=== PATIENT | male | born 1950 | race Caucasian/White ===

== ENCOUNTER → 2017-08-28 15:30 | Outpatient (CLI) | payer OTHER, SELFPAY ==
--- NOTE | 2017-08-28 15:35 | DI.RAD.S_ITS ---
PROCEDURE: XR ABDOMEN MIN 2V INDICATIONS: 67-year-old male with generalized abdominal pain. TECHNIQUE: 2 views of the abdomen were acquired. COMPARISON: [facility], , UPPER GI AIR CONTRAST WITH KUB, 06/29/2017, 10:31. FINDINGS: Surgical changes and devices: None. Bowel: No pneumoperitoneum. The bowel gas pattern is normal. Soft tissues: No masses; visualized solid organ contours appear normal in size. No suspicious abdominal calcifications. Bones: No suspicious bony abnormalities. IMPRESSION: No imaging explanation for abdominal pain. Dictated by: Oz Saini M.D. on 08/28/2017 at 15:52 Approved by: Oz Saini M.D. on 08/28/2017 at 15:54
== END ==
PROVIDERS: PCP Internal Medicine; Visit Provider Student in an Organized Health Care Education/Training Program
DX: R10.84 Generalized abdominal pain (principal)
CPT/HCPCS: 74019

== ENCOUNTER → 2017-09-07 07:18 | Outpatient (CLI) | payer OTHER, SELFPAY ==
--- NOTE | 2017-09-07 | DI.US.S_ITS ---
PROCEDURE: US ABDOMEN COMPLETE INDICATIONS: PAIN TECHNIQUE: Real-time scanning was performed of the abdominal and retroperitoneal organs, with image documentation. COMPARISON: [facility], , ABDOMEN LIMITED, 06/29/2017, 10:27. FINDINGS: Liver: Liver is normal in size and homogeneous in echotexture. Gallbladder: Gallbladder is clear with normal wall thickness. Biliary ducts: Intrahepatic bile ducts are non-dilated. Extrahepatic bile duct caliber measures 5.1 mm. Normal is 6-7 mm or less in diameter, or 10 mm or less post-cholecystectomy. Pancreas: Visualized portions of the pancreas are sonographically normal. Spleen: Spleen is at the upper limits of normal in size at 12.3 cm, appearing homogeneous in echotexture. Kidneys: Kidneys are normal in size and echotexture. Right kidney measures 12.2 cm long; left kidney measures 11.1 cm long. No hydronephrosis or nephrolithiasis. No solid masses. Aorta: Visualized aorta is normal in caliber at less than 3 cm. Iliacs: Proximal common iliac arteries are normal in caliber at less than 2.5 cm. IVC: Intrahepatic inferior vena cava is patent. Miscellaneous: No free abdominal fluid. IMPRESSION: Borderline splenomegaly otherwise normal abdomen ultrasound Dictated by: Nathan Hoover M.D. on 09/07/2017 at 8:37 Approved by: Nathan Hoover M.D. on 09/07/2017 at 8:40
== END ==
PROVIDERS: PCP Internal Medicine; Visit Provider Student in an Organized Health Care Education/Training Program
DX: R10.9 Unspecified abdominal pain (principal)
CPT/HCPCS: 76700

== ENCOUNTER → 2017-09-14 09:29 | Outpatient (CLI) | payer OTHER, SELFPAY ==
[2017-09-14 11:01] LABS: Blood Urea Nitrogen 16 mg/dL (9-20); Calcium 9.1 mg/dL (8.4-10.2); Carbon Dioxide 31 mmol/L (22-32); Chloride 101 mmol/L (98-107); Estimated Glomerular Filt Rate > 60.0 mL/min (>60); Glucose 96 mg/dL (80-110); HEMOLYSIS < 15 (0-50); Potassium 4.7 mmol/L (3.4-5.1); Sodium 139 mmol/L (137-145)
== END ==
PROVIDERS: PCP Internal Medicine; Visit Provider Student in an Organized Health Care Education/Training Program
DX: Z85.820 Personal history of malignant melanoma of skin (principal); R10.84 Generalized abdominal pain
CPT/HCPCS: 36415; 80048

== ENCOUNTER → 2017-12-26 12:01 | Outpatient (CLI) | payer OTHER, SELFPAY ==
[2017-12-26 13:19] LABS: Alanine Aminotransferase 26 IU/L (21-72); Albumin 4.1 g/dL (3.5-5.0); Albumin Globulin Ratio 1.5 (1.0-2.8); Alkaline Phosphatase 73 U/L (38-126); Aspartate Aminotransferase 19 IU/L (17-59); Bilirubin Total 0.8 mg/dL (0.2-1.3); Blood Urea Nitrogen 18 mg/dL (9-20); Calcium 8.7 mg/dL (8.4-10.2); Carbon Dioxide 25 mmol/L (22-32); Chloride 104 mmol/L (98-107); Estimated Glomerular Filt Rate > 60.0 mL/min (>60); Globulin 2.8 g/dL (1.7-4.1); Glucose 124 mg/dL (80-110); HEMOLYSIS < 15 (0-50); Lactate Dehydrogenase 398 U/L (313-618); Potassium 4.2 mmol/L (3.4-5.1); Sodium 142 mmol/L (137-145); Total Protein 6.9 g/dL (6.3-8.2); Uric Acid 6.2 mg/dL (3.5-8.5)
[2017-12-26 13:33] LABS: Add Manual Diff / Slide Review NO; Basophils Percent Auto 0.7 % (0-2); Eosinophils Percent Auto 3.3 % (2-4); Hematocrit 42.2 % (41-53); Hemoglobin 14.5 g/dL (13.5-17.5); Lymphocytes Percent Auto 13.5 % (25-40); Mean Corpuscular HGB Conc 34.3 % (30-36); Mean Corpuscular Hemoglobin 30.6 PG (26-34); Mean Corpuscular Volume 89.1 fL (80-100); Monocytes Percent Auto 6.4 % (3-14); Neutrophils Absolute Auto 6300 /uL (3000-5900); Neutrophils Percent Auto 76.1 % (50-75); Platelet Count 292 X10^3/uL (150-400); Red Blood Cell Count 4.73 X10^6/uL (4.5-5.9); Red Cell Distribution Width 14.9 % (11.6-14.8); White Blood Cell Count 8.3 X10^3/uL (4.5-11.0)
== END ==
PROVIDERS: PCP Internal Medicine; Visit Provider Internal Medicine Hematology & Oncology
DX: C83.10 Mantle cell lymphoma, unspecified site (principal)
CPT/HCPCS: 36415; 80053; 83615; 84550; 85025

== ENCOUNTER 2017-12-27 16:24 | Emergency (ER) | payer OTHER, SELFPAY ==
--- NOTE | 2017-12-27 16:30 | DI.RAD.S_ITS ---
PROCEDURE: XR CHEST 1V INDICATIONS: stroke like symptoms TECHNIQUE: One view of the chest was acquired. COMPARISON: [facility], , CHEST 2 VIEW, 08/30/2010, 12:12. FINDINGS: Surgical changes and devices: None. Lungs and pleura: No pleural effusions or pneumothorax. Scattered atelectasis without focal consolidation Mediastinum: Mediastinal contours appear normal. Heart size is normal. Bones and chest wall: No suspicious bony lesions. Overlying soft tissues appear unremarkable. IMPRESSION: No acute disease Dictated by: Kavon Jefferson M.D. on 12/27/2017 at 17:15 Approved by: Kavon Jefferson M.D. on 12/27/2017 at 17:16
--- NOTE | 2017-12-27 16:31 | DI.CT.S_ITS ---
PROCEDURE: CT HEAD/BRAIN WO CON INDICATIONS: stroke like symptoms TECHNIQUE: Noncontrast 4.5 mm thick angled axial sections acquired from the foramen magnum to the vertex, with coronal and sagittal reformats. For radiation dose reduction, the following was used: automated exposure control, adjustment of mA and/or kV according to patient size. COMPARISON: None. FINDINGS: Image quality: Excellent. CSF spaces: Basal cisterns are patent. No extra-axial fluid collections. Ventricles are normal in size and shape. Brain: No midline shift. No intracranial masses or hemorrhage. Meléndez-white matter interface is normal. Skull and face: Calvarium and visualized facial bones are intact, without suspicious lesions. Sinuses: Left maxillary sinus disease. IMPRESSION: No acute intracranial process. Findings were personally telephoned to Dr. Quigley in the emergency department 1644 hrs. 12/27/17 Dictated by: Kavon Jefferson M.D. on 12/27/2017 at 16:39 Approved by: Kavon Jefferson M.D. on 12/27/2017 at 16:45
[2017-12-27 16:48] LABS: Add Manual Diff / Slide Review NO; Basophils Percent Auto 0.7 % (0-2); Eosinophils Percent Auto 4.6 % (2-4); Hematocrit 38.5 % (41-53); Hemoglobin 13.3 g/dL (13.5-17.5); Lymphocytes Percent Auto 15.8 % (25-40); Mean Corpuscular HGB Conc 34.5 % (30-36); Mean Corpuscular Hemoglobin 28.4 PG (26-34); Mean Corpuscular Volume 82.3 fL (80-100); Monocytes Percent Auto 11.4 % (3-14); Neutrophils Absolute Auto 7100 /uL (3000-5900); Neutrophils Percent Auto 67.5 % (50-75); Platelet Count 271 X10^3/uL (150-400); Red Blood Cell Count 4.68 X10^6/uL (4.5-5.9); White Blood Cell Count 10.5 X10^3/uL (4.5-11.0)
--- NOTE | 2017-12-27 16:50 | ED_ITS ---
HPI - Neuro Symptoms/Deficit General Chief Complaint: Neuro Symptoms/Deficit Stated Complaint: CVA Time Seen by Provider: 12/27/17 16:30 Source: patient and family Mode of arrival: EMS Limitations: other (Difficulty with speech) History of Present Illness HPI Narrative: This is a 67-year-old male who had sudden onset of left-sided weakness, difficulty with speech that occurred at 4:05 p.m.. Patient was with his when she noticed changes. She states that it was very sudden. Patient states he does have a little bit of a headache. He is denying any vision changes. He is denying any chest pain or shortness of breath, no abdominal pain no nausea or vomiting no GI or urinary symptoms. Patient has a history of TIA remotely. He was on aspirin as well as blood thinners and cholesterol medication for that in the past but he had a large weight loss and they stopped those medications in conjunction with his physician. Patient was recently diagnosed with lymphoma he had bronchoscopy about 6 weeks ago according to his for biopsy. She is unsure if it was a needle biopsy or other form. He has not had any prior history of bleeds. He has not had any other recent surgeries. He has not had any recent head trauma. He does not take any aspirin or other anticoagulants currently. On Anticoagulants: No Related Data Home Medications Medication Instructions Recorded Confirmed ASPIRIN (Aspirin Low Dose) #0 11/09/09 CALCIUM CARBONATE/VITAMIN D3 #0 11/09/09 (Oyster Shell Calcium-Vit D Tab) furosemide 40 mg PO Q DAY #0 09/24/10 Previous Rx's Medication Instructions Recorded losartan 50 mg PO BID #180 02/06/11 CHLORTHALIDONE (#HYGROTON) 25 mg PO Q DAY #100 04/02/11 amlodipine 5 mg PO BID #100 05/22/11 Allergies Allergy/AdvReac Type Severity Reaction Status Date / Time No Known Drug Allergies Allergy Verified 12/27/17 16:31 Review of Systems Review of Systems All systems reviewed & are unremarkable except as noted in HPI and below Constitutional Denies frequent falls, Reports headache(s) and Reports weakness ENT Ears, Nose, Mouth, and Throat: Denies dizziness and Reports headache(s) Cardiovascular Denies syncope, Denies dyspnea and Denies dyspnea on exertion Respiratory Denies cough, Denies dyspnea, Denies dyspnea on exertion and Denies wheezing Gastrointestinal Gastrointestinal: Denies abdominal pain, Denies change in bowel habits, Denies diarrhea, Denies nausea and Denies vomiting Musculoskeletal Reports numbness Neurologic Reports abnormal speech, Denies dizziness, Denies syncope, Denies frequent falls , Reports headache(s), Reports focal weakness, Reports numbness, Reports sensory deficit and Reports weakness Allergic/Immunologic Denies wheezing PFSH Medical History Lymphoma (Acute) TIA (transient ischemic attack) (Acute) Surgical History S/P bronchoscopy with biopsy (Acute) Social History Smoking Status: Never smoker substance use type: does not use Exam Narrative Exam Narrative: GEN: well nourished, well appearing male, alert and oriented x 3 , patient appears to be in moderate distress. HEENT: Atraumatic, pupils are equal round reactive to light, patient appears to have gaze palsy to right, nares are clear, TMs are clear with no fluid, there is no conjunctival pallor. Throat is clear without any exudates, erythema, tonsillar enlargement or uvular deviation, right facial droop, dysarthria although able to understand most words. HEART: Regular rate and rhythm without murmur, clicks, rubs. pulses are equal in upper and lower extremities LUNGS:Lungs clear to auscultation, no wheezes, rales, crackles, chest moves symmetrically ABD:bowel sounds normal, soft, non-tender, no guarding, rebound, rigidity, no masses noted, no hepatosplenomegaly MSCL: Non-tender, no muscle atrophy, muscles strength right 5/5 upper and lower extremity, left has not movement against gravity on upper and attempt but cannot get leg off bed on left NEURO:CN 2-12 intact, patient does not have sensation on left upper or lower extremities, finger nose finger test normal right, cannot complete on left. moderate aphasia, patient has neglect on left. Initial Vital Signs Initial Vital Signs: Vital Signs Pulse Rate 55 L 12/27/17 17:02 Respiratory Rate 17 12/27/17 17:02 Blood Pressure 132/60 12/27/17 17:02 Pulse Oximetry 98 12/27/17 17:02 Scores NIH Stroke Scale Level of Conciousness: Alert, keenly responsive Ask month/age: Answers both questions correctly. Open/close eyes, close hand: Performs both tasks correctly Best gaze horizontal: Forced deviation or total gaze paresis not overcome Visual milner: Partial hemianopia Facial palsy: Partial paralysis, total or near total paralysis of lower face Left arm drift: No effort against gravity Right arm drift: No drift for full 10 sec Left leg drift: Some effort against gravity, cannot maintain, drifts down to bed Right leg drift: No drift for full 10 sec Limb ataxia: Present in two limbs Sensory on face/arms/legs: Severe to total sensory loss, not aware of touch, coma, quadriplegic Best language: Mild to moderate, slurs some words Dysarthria: Mild to mod,some slurring Extinction or inattention: Visual, tactile, auditory, spacial or personal inattention to stimuli Total NIH Stroke scale score: 17 Course Orders Ordered: ED Orders 12/27/17 16:30 XR chest 1V Stat 12/27/17 16:31 CT head/brain wo con Stat 12/27/17 16:36 EKG-12 Lead Stat 12/27/17 16:40 Basic Metabolic Panel Stat Complete Blood Count AUTO DIFF Stat Partial Thromboplastin Time Stat Prothrombin Time INR Stat Troponin I Stat 12/27/17 16:59 CT angio head and neck Stat 12/27/17 18:25 Urine Drug Screen, Rapid Stat Sodium Chloride (Normal Saline 0.9%) 1,000 mls @ 150 mls/hr IV CONT MADELEINE Last Admin: 12/27/17 17:07 Dose: 150 mls/hr Sodium Chloride (Normal Saline 0.9%) 1,000 mls @ 150 mls/hr IV CONT MADELEINE Discontinued Medications Alteplase, Recombinant (Activase) 9 mg IV NOW ONE Stop: 12/27/17 17:02 Last Admin: 12/27/17 17:12 Dose: 9 mg Alteplase, Recombinant (Activase) 81 mg IV NOW ONE Stop: 12/27/17 17:02 Last Admin: 12/27/17 17:14 Dose: 81 mg Labetalol HCl (Trandate) 10 mg IV NOW ONE Stop: 12/27/17 18:30 Last Admin: 12/27/17 18:38 Dose: 10 mg Vital Signs - 8 hr 12/27/17 17:02 12/27/17 18:20 12/27/17 18:38 Pulse Rate 55 L 107 H 78 Respiratory Rate 17 28 H Blood Pressure 184/109 H Blood Pressure [Left Arm] 132/60 180/127 H Pulse Oximetry 98 99 MDM - Neuro Symptoms/Deficit Lab Data Attestation: I reviewed the patient's lab results. Result diagrams: 12/27/17 16:40 12/27/17 16:40 Lab Results 12/27/17 12/27/17 12/27/17 Range/Units 16:40 16:40 16:40 WBC 10.5 (4.5-11.0) X10^3/uL RBC 4.68 (4.5-5.9) X10^6/uL Hgb 13.3 L (13.5-17.5) g/dL Hct 38.5 L (41-53) % MCV 82.3 D (80-100) fL MCH 28.4 (26-34) PG MCHC 34.5 (30-36) % RDW 15.0 H (11.6-14.8) % Plt Count 271 (150-400) X10^3/uL Neut % (Auto) 67.5 (50-75) % Lymph % (Auto) 15.8 L (25-40) % Evangeline % (Auto) 11.4 (3-14) % Eos % (Auto) 4.6 H (2-4) % Baso % (Auto) 0.7 (0-2) % Neut # (Auto) 7100 H (0928-8974) /uL PT 12.1 (10.1-12.7) SECONDS INR 1.1 (0.9-1.3) APTT 31 (26.4-36.2) SECONDS Sodium (137-145) mmol/L Potassium (3.4-5.1) mmol/L Chloride (98-107) mmol/L Carbon Dioxide (22-32) mmol/L BUN (9-20) mg/dL Creatinine (0.66-1.25) mg/dL Estimated GFR (>60) mL/min BUN/Creatinine Ratio (6-22) Glucose (80-110) mg/dL Calcium (8.4-10.2) mg/dL Troponin I 0.033 (0.01-0.034) ng/mL Urine Opiates Screen (Negative) Ur Oxycodone Screen (Negative) Urine Methadone Screen (Negative) Ur Barbiturates Screen (Negative) U Tricyclic Antidepress (Negative) Ur Phencyclidine Scrn (Negative) Ur Amphetamines Screen (Negative) U Methamphetamines Scrn (Negative) Ur MDMA Scrn (Ecstasy) (Negative) U Benzodiazepines Scrn (Negative) Urine Cocaine Screen (Negative) U Marijuana (THC) Screen (Negative) 12/27/17 12/27/17 Range/Units 16:40 18:25 WBC (4.5-11.0) X10^3/uL RBC (4.5-5.9) X10^6/uL Hgb (13.5-17.5) g/dL Hct (41-53) % MCV (80-100) fL MCH (26-34) PG MCHC (30-36) % RDW (11.6-14.8) % Plt Count (150-400) X10^3/uL Neut % (Auto) (50-75) % Lymph % (Auto) (25-40) % Evangeline % (Auto) (3-14) % Eos % (Auto) (2-4) % Baso % (Auto) (0-2) % Neut # (Auto) (1821-0237) /uL PT (10.1-12.7) SECONDS INR (0.9-1.3) APTT (26.4-36.2) SECONDS Sodium 141 (137-145) mmol/L Potassium 4.5 (3.4-5.1) mmol/L Chloride 104 (98-107) mmol/L Carbon Dioxide 26 (22-32) mmol/L BUN 20 (9-20) mg/dL Creatinine 1.00 (0.66-1.25) mg/dL Estimated GFR > 60.0 (>60) mL/min BUN/Creatinine Ratio 20.0 (6-22) Glucose 95 (80-110) mg/dL Calcium 8.5 (8.4-10.2) mg/dL Troponin I (0.01-0.034) ng/mL Urine Opiates Screen Negative (Negative) Ur Oxycodone Screen Negative (Negative) Urine Methadone Screen Negative (Negative) Ur Barbiturates Screen Negative (Negative) U Tricyclic Antidepress Negative (Negative) Ur Phencyclidine Scrn Negative (Negative) Ur Amphetamines Screen Negative (Negative) U Methamphetamines Scrn Negative (Negative) Ur MDMA Scrn (Ecstasy) Negative (Negative) U Benzodiazepines Scrn Negative (Negative) Urine Cocaine Screen Negative (Negative) U Marijuana (THC) Screen Negative (Negative) Urine Dip Bedside Urine Glucose Negative Bedside Urine Bilirubin - Negative Bedside Urine Ketone - Negative Urine Specific [place] 1.015 Bedside Urine Occult Blood +/- Bedside Urine pH 6.0 Bedside Urine Protein - Negative Bedside Urine Urobilinogen - Negative Bedside Urine Nitrite - Negative Bedside Urine Leukocytes - Negative Esterase Imaging Data CT scan - head: Radiologist's impression: [address] [address] [address] Scan Report Signed Patient: Pierce Voss ANALI#: [id number] : 8Acct:[id number] Age/Sex: 67 / MDate of Service: 12/27/17 Loc: ED Accession Number: [id number] Procedure: CT head/brain wo con Ordering Provider: Sushma Quigley D.O. PROCEDURE: CT HEAD/BRAIN WO CON INDICATIONS: stroke like symptoms TECHNIQUE: Noncontrast 4.5 mm thick angled axial sections acquired from the foramen magnum to the vertex, with coronal and sagittal reformats. For radiation dose reduction, the following was used: automated exposure control, adjustment of mA and/or kV according to patient size. COMPARISON: None. FINDINGS: Image quality: Excellent. CSF spaces: Basal cisterns are patent. No extra-axial fluid collections. Ventricles are normal in size and shape. Brain: No midline shift. No intracranial masses or hemorrhage. Meléndez-white matter interface is normal. Skull and face: Calvarium and visualized facial bones are intact, without suspicious lesions. Sinuses: Left maxillary sinus disease. IMPRESSION: No acute intracranial process. Findings were personally telephoned to Dr. Quigley in the emergency department 1644 hrs. 12/27/17 Dictated by: Kavon Jefferson M.D. on 12/27/2017 at 16:39 Approved by: Kavon Jefferson M.D. on 12/27/2017 at 16:45 Chest x-ray: Radiologist's impression: [address] [address] XRay Report Signed Patient: Pierce Voss ANALI#: [id number] : 8Acct:[id number] Age/Sex: 67 / MDate of Service: 12/27/17 Loc: ED Accession Number: [id number] Procedure: XR chest 1V Ordering Provider: Mank,Sushma C D.O. PROCEDURE: XR CHEST 1V INDICATIONS: stroke like symptoms TECHNIQUE: One view of the chest was acquired. COMPARISON: [facility], , CHEST 2 VIEW, 08/30/2010, 12:12. FINDINGS: Surgical changes and devices: None. Lungs and pleura: No pleural effusions or pneumothorax. Scattered atelectasis without focal consolidation Mediastinum: Mediastinal contours appear normal. Heart size is normal. Bones and chest wall: No suspicious bony lesions. Overlying soft tissues appear unremarkable. IMPRESSION: No acute disease Dictated by: Kavon Jefferson M.D. on 12/27/2017 at 17:15 Approved by: Kavon Jefferson M.D. on 12/27/2017 at 17:16 ECG Data Attestation: I personally reviewed and interpreted this ECG as follows: Interpretation: Sinus rhythm 1st degree AV block. Rate is 61 P are 223, QRS of 106 and QTC of 434. Patient has left anterior fascicular block. J-point elevation in V3 V4. T-wave inversion in 1 aVL. MDM Narrative Medical decision making narrative: This is a 67-year-old male who comes in within 45 min of his onset of symptoms of stroke. Patient has a elevated NIH, Um discussed with Neurosurgery through stroke through tele Stroke. Patient has risk factor for recent bronch but otherwise meets criteria for tPA. It was decided in conjunction to give patient tPA. Risks were described patient as well as the of risk versus benefit. They are aware of these and consent to tPA. Patient did seem to have some improvement shortly after the tPA was administered. He was taken to CT for CTA head and neck. Patient had elevated blood pressure about 185/100, labetalol 10 mg was given and continue to monitor blood pressure. This was also discussed with Neurology. Images were reviewed by neurology who see occlusion of the MCA and a code IR was called with plan for transport to [facility]. Dr. Lemos is the accepting physician. Patient's lab work was reviewed hemoglobin is 13. Patient has some and were informed of plan and potential for clot retrieval. They are comfortable with this plan at the time. Patient began having having recurrence of symptoms. I he is not having sensation to light touch on his left upper lower extremity. He is able to lift his left arm somewhat but with some difficulty. Patient does have increased weakness from before. He is not able to lift his left leg. He seems to also be having some increased slurring of his speech back to what he was like originally when he came to the department. Patient has also had some sort of jumping Um or tremors in the leg intermittently as well. His blood pressure was noted to be elevated again and he was given a 2nd dose of labetalol 10 mg plan to repeat a 2nd dose after 10 min of pressure has not improved significantly. Air lift is present Um and planning to her transportation at this time. I did recontact [facility] to update them on the status changes the patient, I spoke with the ER coordinator nurse who will notify neurology. Discharge Plan Departure Patient Disposition: [facility] Clinical Impression: Acute CVA (cerebrovascular accident) Prescriptions: No Action ASPIRIN (Aspirin Low Dose) Qty: 0 RF: 0 CALCIUM CARBONATE/VITAMIN D3 (Oyster Shell Calcium-Vit D Tab) Qty: 0 RF: 0 furosemide 40 MG tablet 40 mg PO Q DAY Qty: 0 RF: 0 losartan 50 MG tablet 50 mg PO BID Qty: 180 RF: 0 CHLORTHALIDONE (#HYGROTON) 25 mg PO Q DAY Qty: 100 RF: 0 amlodipine 10 MG tablet 5 mg PO BID Qty: 100 RF: 0
[2017-12-27 16:54] LABS: INR 1.1 (0.9-1.3); Prothrombin Time 12.1 SECONDS (10.1-12.7)
[2017-12-27 16:57] LABS: PTT Partial Thromboplastin Tim 31 SECONDS (26.4-36.2)
[2017-12-27 16:58] LABS: Blood Urea Nitrogen 20 mg/dL (9-20); Calcium 8.5 mg/dL (8.4-10.2); Carbon Dioxide 26 mmol/L (22-32); Chloride 104 mmol/L (98-107); Estimated Glomerular Filt Rate > 60.0 mL/min (>60); Glucose 95 mg/dL (80-110); HEMOLYSIS < 15 (0-50); Potassium 4.5 mmol/L (3.4-5.1); Sodium 141 mmol/L (137-145)
--- NOTE | 2017-12-27 16:59 | DI.CT.S_ITS ---
PROCEDURE: CT ANGIO HEAD AND NECK INDICATIONS: left sided deficits, aphasia, dysarthria, neglect TECHNIQUE: Pre-contrast 4.5 mm thick sections acquired from the foramen magnum to the vertex. After the administration of intravenous contrast, 1 mm thick sections acquired from the aortic arch through the Julian of [place]. Post-contrast 4.5 mm thick sections then re-acquired from the foramen magnum to the vertex. 3-dimensional fnhqkwu-vdowwnodk-djzhzimlrm (MIP) and/or volume rendering reformats were acquired of the central intracranial vasculature and neck separately. COMPARISON: None. FINDINGS: Image quality: Suboptimal due to motion artifact.. BRAIN: CSF spaces: Ventricles are normal in size and shape. Basal cisterns are patent. No extra-axial fluid collections. Brain: No midline shift. No intracranial bleeds or masses. Meléndez-white matter interface appears intact. Skull and face: Calvarium and facial bones appear intact, without suspicious lesions. Orbits appear normal. Sinuses: Sinuses and mastoids are clear. HEAD CT ANGIOGRAPHY: Anterior circulation: There is presumed high-grade stenosis of the right internal carotid artery at about the level of C2. This is not well-visualized due to streak artifact from dental hardware. There is asymmetric decreased contrast opacification of the distal right ICA to the stillaguamish of [place]. The flow within the paired anterior cerebral arteries is normal and symmetric. Decreased flow within the right middle cerebral artery and distal right MCA branches although there is minimal contrast opacification. The anterior communicating artery is seen. No aneurysms are seen. Posterior circulation: Visualized portions of the vertebral arteries demonstrate normal caliber, and join to form a normal appearing basilar artery. Flow within the posterior cerebral arteries is normal and symmetric. No aneurysms are seen. NECK CT ANGIOGRAPHY: Carotid system: The great vessels demonstrate a conventional anatomy as they arise from the aortic arch. The origins of the common carotid arteries appear patent. The common carotid arteries demonstrate normal caliber and courses. The bifurcation regions are both widely patent. There is a distal right cervical ICA stenosis with decreased opacification of the intracranial right ICA. The left ICA appears grossly patent. Posterior circulation: The origins of the vertebral arteries both appear widely patent. The more superior extracranial portions of both vertebral arteries also demonstrate normal courses and calibers. They join to form a normal appearing basilar artery. Soft tissues: Visualized neck soft tissues demonstrate no suspicious abnormalities. Bones: No suspicious bony lesions. Visualized cervical spine appears normally aligned. IMPRESSION: Marked decreased contrast opacification of the distal cervical right ICA to the level of stillaguamish of [place] (as well as the right MCA, and distal right MCA branches) presumably due to a high-grade right-sided distal cervical ICA stenosis at the level of about C2 however this is not well-seen due to extensive streak artifact from dental hardware. Findings were personally telephoned and discussed with Dr. Quigley in the emergency department 1907 hrs. on 12/27/17. Any quantitative measurements of stenosis were performed using NASCET criteria. Dictated by: Kavon Jefferson M.D. on 12/27/2017 at 18:55 Approved by: Kavon Jefferson M.D. on 12/27/2017 at 19:09
[2017-12-27 17:02] VITALS: BP 132/60; PULSE 55; RESP 17; O2SAT 98
[2017-12-27] MEDS: SODIUM CHLORIDE 0.9% 1,000 ML 150 ML IV (17:07)
[2017-12-27] MEDS: ALTEPLASE 100 MG VIAL 9 MG IV (17:12)
[2017-12-27] MEDS: ALTEPLASE 100 MG VIAL 81 MG IV (17:14)
[2017-12-27 17:18] LABS: Troponin I 0.033 ng/mL (0.01-0.034)
[2017-12-27 18:20] VITALS: BP 180/127; PULSE 107; RESP 28; O2SAT 99
[2017-12-27 18:38] VITALS: BP 184/109; PULSE 78
[2017-12-27] MEDS: LABETALOL 20 MG/4 ML SYRINGE 10 MG IV ×2 (18:38→19:15)
[2017-12-27 19:05] LABS: Urine Tetrahydrocannabinol Negative (Negative)
[2017-12-27 19:06] LABS: Urine Amphetamines Negative (Negative); Urine Barbiturates Negative (Negative); Urine Benzodiazepines Negative (Negative); Urine Cocaine Negative (Negative); Urine MDMA Negative (Negative); Urine Methadone Negative (Negative); Urine Methamphetamines Negative (Negative); Urine Morphine/Opi cutoff 2000 Negative (Negative); Urine Oxycodone Negative (Negative); Urine Phencyclidine Negative (Negative); Urine Tricyclic Antidepressant Negative (Negative)
[2017-12-27 19:15] VITALS: BP 165/133; PULSE 76
--- NOTE | 2017-12-27 19:58 | PC.NURSE ---
See paper documentation for NIH and VS
[2017-12-27 20:00] VITALS: BP 198/117; PULSE 76; RESP 21; O2SAT 98
--- NOTE | 2018-01-13 10:06 | PC.NURSE ---
NS 1L started at time apr and went with pt to [facility] to [facility] at 1956
== END 2017-12-27 19:55 | disposition short-term general hospital (02) ==
PROVIDERS: Emergency Provider Emergency Medicine; PCP Internal Medicine
DX: I63.9 Cerebral infarction, unspecified (principal)
CPT/HCPCS: 36415; 36591; 70450; 70496; 70498; 71045; 80048; 80305; 81003; 84484; 85025; 85610; 85730; 93005; 93010; 96361; 96374; 96375; 96376; 99285; 99291; 99292; J2997; Q9967

== ENCOUNTER 2018-04-22 13:45 | Outpatient (RCR) | payer OTHER, SELFPAY ==
--- NOTE | 2018-02-04 12:45 | PT.OIE ---
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) Other reduced mobility (02/04/18) Past Medical History (Last Updated 12/27/17 @ 18:31 by Sushma Quigley DO) Lymphoma (Acute) TIA (transient ischemic attack) (Acute) Past Surgical History (Last Updated 12/27/17 @ 18:31 by Sushma Quigley DO) S/P bronchoscopy with biopsy (Acute) Provider Visit Care Team Role Provider Type Layton Francis MD Attending Provider Physician Primary Care Provider Specialty: Internal Medicine Address: [address] [place] [address], [facility] Email: Physical Therapy Initial Evaluation PT-OP-A Visit Information Start: 02/06/18 07:16 Freq: Status: Active Protocol: Document 02/04/18 12:45 RCC (Rec: 02/06/18 08:08 RCC [email or web address]) Out-Patient Physical Therapy Visit Information Visit Information Visit Type Initial Evaluation Visit Start Time 12:00 Visit Stop Time 12:45 Total Visit Minutes 45 Visit Number 1 Number of UPHOLSTERER APPRENTICE Visits 0 Evaluation Information Evaluation Date 02/04/18 Precautions Precautions L toe drag occasionally with gait, fall risk PT-OP-B Current Condition Start: 02/06/18 07:16 Freq: Status: Active Protocol: Document 02/04/18 12:45 RCC (Rec: 02/06/18 08:08 RCC [email or web address]) Current Condition History of Current Condition Onset Date 12/27/17 Current Complaints impaired gait, weakness LUE and LE, poor balance History of Current Condition Pt is a 68 y/o male presenting to outpatient physical therapy with a c/o L sided UE and LE weakness, impaired gait and balance, and general difficulty with mobility and loss of function s/p CVA (R MCA). Pt initially brought to on 12/27/17 with slurred speech, L UE/LE weakness. He was administered tPA at , continued to have recurring symptoms of HTN, slurred speech, and L sided weakness. He was airlifted to [facility] , but transported from helicopter to [facility] for further evaluation and treatment. He spent a couple of weeks of rehab at [facility], and returned home with (see PT notes for rehab in paper chart). Pt is receiving hand therapy at [facility] in [place], he is unsure if he will get UE strengthening and treatment there beyond his hand. His prior level of function is indep. gait without a device. 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 He is not yet driving. He is using a FWW for gait, he does not yet feel safe with the quad cane with ambulation. CVA affected both L UE and LE. He has baseline low back pain with R sided sciatic symptoms ( treated @ this clinic years prior to this as well). Prior Treatments and Tests tPA @ then airlift and transport to [facility] with rehab. Future Testing and Treatments Planned OT for UE strengthening, coordination, function- recommend referral for this to be performed @ current IR ( receiving hand therapy only) or @ for OT as well as PT. Treatment Goals Patient/Caregiver Goals improve gait, balance, strength, functional independence. Prior Functional Status Baseline Function- ADL's Independent Baseline Function- Mobility Independent Baseline Function- Gait short community ambulation without device Baseline Function- Work/School working @ [employer] and fixing/up-keep on own home Current Functional Impairments (Reported) Functional Limitations- ADL's assistance with dressing, bathing Functional Limitations- Mobility/Gait modified indep. gait indoors and level outdoors with FWW Functional Limitations- Work/School unable to work Personal Factors Other Personal Factors That May Effect currently with lymphoma ( Therapy/Recovery diagnosed prior to CVA but no treatment due to CVA) as well as a bad heart valve) which lymphoma and CVA also has hindered treatment. Baseline low back pain with R sided sciatic. Obesity, although lost weight recently. PT-OP-C Subjective Start: 02/06/18 07:16 Freq: Status: Active Protocol: Document 02/04/18 12:45 RCC (Rec: 02/06/18 08:08 RCC [email or web address]) OP-PT Pain Assessment Location low back/buttock Intensity 4 Scale Used Numeric (1 - 10) PT-OP-D Balance Start: 02/06/18 07:16 Freq: Status: Active Protocol: Document 02/04/18 12:45 RCC (Rec: 02/06/18 08:08 RCC [email or web address]) Balance Tests Single Limb Standing Single Limb- Right 5 sec Single Limb- Left unable Tandem Tandem Standing R posterior 15 sec, L posterior 3 sec PT-OP-E Functional Tests Start: 02/06/18 07:16 Freq: Status: Active Protocol: Document 02/04/18 12:45 RCC (Rec: 02/06/18 08:08 RCC [email or web address]) Functional Tests Timed Up and Go (TUG) Score 24.46 Comments FWW TUG Impairment Rating 100% Impaired (Score 20) PT-OP-G Mobility & Gait Start: 02/06/18 07:16 Freq: Status: Active Protocol: Document 02/04/18 12:45 RCC (Rec: 02/06/18 08:08 RCC [email or web address]) OP Mobility Evaluation Bed Mobility Supine to and from Sit modified indep log roll Transfers Sit to Stand SBA Bed to Chair Transfers SBA Car Transfers SBA Floor Transfers not assessed OP Gait Assessment Gait Gait Assistance Required: Standby Assistance Assistive Devices Assistive Device Gait Belt Front Wheeled Walker Gait Deviations General Gait Pattern Decreased Stride Length Decreased Feet Clearance Flexed Trunk Factors Limiting Gait Function Factors Limiting Gait Function Decreased Activity Tolerance Decreased Strength Incoordination Poor Balance PT-OP-H Neuro Start: 02/06/18 07:16 Freq: Status: Active Protocol: Document 02/04/18 12:45 RCC (Rec: 02/06/18 08:[address] [facility] [email or web address]) Sensation Evaluation Comments Summary Comments pt reports sensation intact UE and LE Coordination Evaluation Upper Extremity Tests Right Finger to Nose Test Normal Performance Pronation/Supination Test Normal Performance Left Finger to Nose Test Moderate Impairment Pronation/Supination Test Severe Impairment Lower Extremity Tests Right Alternate Heel to Knee; Heel to Toe Test Normal Performance Foot Tapping Test Normal Performance Left Alternate Heel to Knee; Heel to Toe Test Severe Impairment Foot Tapping Test Severe Impairment Deep Tendon Reflex & Clonus Assessment Ankle Clonus Right Clonus Assessment Absent Left Clonus Assessment 1 Beat PT-OP-M Strength Start: 02/06/18 07:16 Freq: Status: Active Protocol: Document 02/04/18 12:45 RCC (Rec: 02/06/18 08:08 RCC [email or web address]) Shoulder Strength Shoulder Manual Muscle Testing Right Flexion 5 Normal Abduction (C5) 5 Normal External Rotation 5 Normal Internal Rotation 5 Normal Left Flexion 3+ Fair+ Abduction (C5) 3+ Fair+ External Rotation 3+ Fair+ Internal Rotation 3 Fair Hip Strength Hip Manual Muscle Testing Right Flexion (L2) 5 Normal External Rotation 4 Good Internal Rotation 4 Good Left Flexion (L2) 3+ Fair+ External Rotation 3 Fair Internal Rotation 3 Fair Knee Strength Knee Manual Muscle Testing Right Flexion (S2) 4 Good Extension (L3) 5 Normal Left Flexion (S2) 3+ Fair+ Extension (L3) 4- Good- Ankle/Foot Strength Ankle and Foot Manual Muscle Testing Right Dorsiflexion (L4) 5 Normal Plantarflexion (S1) 4 Good Inversion 5 Normal Eversion (S1) 4+ Good+ Left Dorsiflexion (L4) 3 Fair Plantarflexion (S1) 2+ Poor+ Inversion 3+ Fair+ Eversion (S1) 3+ Fair+ PT-OP-T Assessment and Plan Start: 02/06/18 07:16 Freq: Status: Active Protocol: Document 02/04/18 12:45 RCC (Rec: 02/06/18 08:08 RCC [email or web address]) Physical Therapy Assessment Rehab Potential Rehabilitation Potential Good Evaluation Complexity Number of Personal Factors/Comorbidities 3 or More Number of Body Systems Impaired 4 or More Clinical Presentation at Evaluation Unstable Impairments Impairments Activity Tolerance Balance Coordination Functional Activities Functional Mobility Gait Strength Tone Other Concerns Fall Risk high (TUG 24/46 average over 3 trials) Barriers to Rehabilitation current: lymphoma, cardiac issues, obesity Goals Coordination Impairment impaired L UE and LE coordination Short Term Goal (STG) L LE heel to opposite mahajan and alternating heel/toe tapping to moderate impairment or better. STG Duration 6 weeks Research Support Specialist Goal (LTG) L LE heel to opposite mahajan and alternating heel/toe tapping to minimal impairment or better. LTG Duration 12 weeks Balance Impairment unable to perform SL balance, tandem standing impaired Short Term Goal (STG) tandem standing to 10 sec each situation, SL balance 2 sec on L foot to demonstrate decreased fall risk. STG Duration 6 weeks Research Support Specialist Goal (LTG) tandem standing to 15 sec each situation, SL balance 5 sec on L foot to demonstrate decreased fall risk. LTG Duration 12 weeks weakness Impairment L lower extremity weakness Short Term Goal (STG) LLE manual muscle testing to at least 4-/5. STG Duration 6 weeks Research Support Specialist Goal (LTG) LLE manual muscle testing to at least 4/5 grossly to improve functional mobility and tolerance to stepping up/ down curbs and stairs with good LE control. Gait Impairment short outdoor ambulation level ground with FWW, decreased L foot clearance Short Term Goal (STG) Pt will ambulate 50 ft outdoors on level ground with quad cane and 100% L foot clearance, modified independent. STG Duration 6 weeks Jail Goal (LTG) Pt will ambulate 300 ft outdoors on level ground with quad cane and 100% L foot clearance, modified independent. LTG Duration 12 weeks Timed Up and Go Impairment 24.46 seconds Short Term Goal (STG) 19 sec or less with Timed Up and Go test with least restrictive assistive device to improve gait speed and decrease fall risk. STG Duration 6 weeks Jail Goal (LTG) 13 sec or less with Timed Up and Go test with least restrictive assistive device to improve gait speed and decrease fall risk. LTG Duration 12 weeks Assessment Summary Assessment Pt overall presents with L UE and LE weakness, incoordination, and impaired functional ability, along with poor balance, gait, and activity tolerance. Discussed with pt about the prolonged time for recovery, and he appears to be highly motivated to improve. Pt currently reports he is receiving hand therapy from occupational therapy at another local clinic. It is highly recommended that due to L UE impairments that pt also receive UE strengthening, ROM, and further treatment for the UE by occupational therapy. If he cannot receive this at the current hand therapy clinic he is attending, it is highly recommended that he obtain a referral for occupational therapy to address these much needed interventions, therefore being able to place physical therapy emphasis on gait, balance, LE coordination, function, and strength for full treatment sessions to optimize pt's time and recovery. Pt is currently a high complexity evaluation and treatments based on current impairments and co-morbidities including cardiac/heart valve issues and lymphoma (unable to be treated at this time). Pt's Timed Up and Go score indicates 100% impairment, although pt is modified indep. with mobility and able to ambulate outdoors leanna MILLER on level ground, therefore his mobility status is upgraded to 60-80% impaired. His L foot does not clear each time with ambulation, making contact with the ground 50% of the time or greater. He is at risk for falls, but is a good candidate for outpatient physical therapy to progress with his impairments to obtain increased functional independence. Physical Therapy Plan Frequency and Duration Frequency of Treatment 2x/Week Duration of Treatment 12 weeks Plan of Care Start Date 02/04/18 Plan of Care End Date 04/29/18 Therapeutic Interventions Therapeutic Interventions Aquatic Therapy Balance Training Coordination Training Gait Training Home Exercise Program Manual Therapy Neuromuscular Re-education Orthotic/Prosthetic Management Patient/Caregiver Education Self-Care/Home Management Soft Tissue Mobilization Taping Therapeutic Activities Therapeutic Exercises Modalities Cold Pack/Ice Massage Hot Packs Other Referrals/Consults Referrals/Consults Recommended occupational therapy for UE assessment and treatment Next Visit Focus/Plan Next Note Type Treatment Note Next Visit Plan discuss if pt is receiving OT for UE strengthening, etc vs. just hand therapy (he may be having an evaluation for OT @ [facility] for strengthening, etc later this week). Progress gait with emphasis on foot clearance. Initiate LE strengthening and balance training for HEP (currently doing semi-tandem balance at home).
--- NOTE | 2018-02-09 16:14 | PT.OTN ---
Current Diagnoses Hemiplegia, unspecified affecting left nondominant side (02/09/18) Cerebral infarction due to unspecified occlusion or stenosis of right middle cerebral artery (02/09/18) Neurologic neglect syndrome (02/09/18) Other reduced mobility (02/09/18) Physical Therapy Treatment Note PT-OP-A Visit Information Start: 02/06/18 07:16 Freq: Status: Active Protocol: Document 02/09/18 10:33 SAK (Rec: 02/09/18 11:17 SAK [id number]) Out-Patient Physical Therapy Visit Information Visit Information Visit Type Treatment Note Visit Start Time 10:32 Visit Stop Time 11:17 Total Visit Minutes 45 Visit Number 2 Number of SHORTHAND TEACHER Visits 0 Evaluation Information Evaluation Date 02/04/18 Precautions Precautions L toe drag occasionally with gait, fall risk PT-OP-B Current Condition Start: 02/06/18 07:16 Freq: Status: Active Protocol: Document 02/04/18 12:45 RCC (Rec: 02/06/18 08:08 RCC [email or web address]) Current Condition History of Current Condition Onset Date 12/27/17 Current Complaints impaired gait, weakness LUE and LE, poor balance History of Current Condition Pt is a 68 y/o male presenting to outpatient physical therapy with a c/o L sided UE and LE weakness, impaired gait and balance, and general difficulty with mobility and loss of function s/p CVA (R MCA). Pt initially brought to on 12/27/17 with slurred speech, L UE/LE weakness. He was administered tPA at , continued to have recurring symptoms of HTN, slurred speech, and L sided weakness. He was airlifted to [facility] , but transported from helicopter to [facility] for further evaluation and treatment. He spent a couple of weeks of rehab at [facility], and returned home with (see PT notes for rehab in paper chart). Pt is receiving hand therapy at [facility] in [place], he is unsure if he will get UE strengthening and treatment there beyond his hand. His prior level of function is indep. gait without a device. 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 He is not yet driving. He is using a FWW for gait, he does not yet feel safe with the quad cane with ambulation. CVA affected both L UE and LE. He has baseline low back pain with R sided sciatic symptoms ( treated @ this clinic years prior to this as well). Prior Treatments and Tests [facility]PA [facility] then airlift and transport to [facility] with rehab. Future Testing and Treatments Planned OT for UE strengthening, coordination, function- recommend referral for this to be performed @ current [facility] ( receiving hand therapy only) or @ [facility] for OT as well as PT. Treatment Goals Patient/Caregiver Goals improve gait, balance, strength, functional independence. Prior Functional Status Baseline Function- ADL's Independent Baseline Function- Mobility Independent Baseline Function- Gait short community ambulation without device Baseline Function- Work/School working @ [employer] and fixing/up-keep on own home Current Functional Impairments (Reported) Functional Limitations- ADL's assistance with dressing, bathing Functional Limitations- Mobility/Gait modified indep. gait indoors and level outdoors with FWW Functional Limitations- Work/School unable to work Personal Factors Other Personal Factors That May Effect currently with lymphoma ( Therapy/Recovery diagnosed prior to CVA but no treatment due to CVA) as well as a bad heart valve) which lymphoma and CVA also has hindered treatment. Baseline low back pain with R sided sciatic. Obesity, although lost weight recently. PT-OP-C Subjective Start: 02/06/18 07:16 Freq: Status: Active Protocol: Document 02/09/18 10:33 SAK (Rec: 02/09/18 16:12 SAK [id number]) OP-PT Subjective Patient Comments Patient Comments Patient reports he is going to be seen for his arm at [facility], not just his hand. Scheduled later this week. PT-OP-D Balance Start: 02/06/18 07:16 Freq: Status: Active Protocol: Document 02/04/18 12:45 RCC (Rec: 02/06/18 08:08 RCC [email or web address]) Balance Tests Single Limb Standing Single Limb- Right 5 sec Single Limb- Left unable Tandem Tandem Standing R posterior 15 sec, L posterior 3 sec PT-OP-E Functional Tests Start: 02/06/18 07:16 Freq: Status: Active Protocol: Document 02/04/18 12:45 RCC (Rec: 02/06/18 08:08 RCC [email or web address]) Functional Tests Timed Up and Go (TUG) Score 24.46 Comments FWW TUG Impairment Rating 100% Impaired (Score 20) PT-OP-G Mobility & Gait Start: 02/06/18 07:16 Freq: Status: Active Protocol: Document 02/04/18 12:45 RCC (Rec: 02/06/18 08:08 [facility] [email or web address]) OP Mobility Evaluation Bed Mobility Supine to and from Sit modified indep log roll Transfers Sit to Stand SBA Bed to Chair Transfers SBA Car Transfers SBA Floor Transfers not assessed OP Gait Assessment Gait Gait Assistance Required: Standby Assistance Assistive Devices Assistive Device Gait Belt Front Wheeled Walker Gait Deviations General Gait Pattern Decreased Stride Length Decreased Feet Clearance Flexed Trunk Factors Limiting Gait Function Factors Limiting Gait Function Decreased Activity Tolerance Decreased Strength Incoordination Poor Balance PT-OP-H Neuro Start: 02/06/18 07:16 Freq: Status: Active Protocol: Document 02/04/18 12:45 RCC (Rec: 02/06/18 08:08 [facility] [email or web address]) Sensation Evaluation Comments Summary Comments pt reports sensation intact UE and LE Coordination Evaluation Upper Extremity Tests Right Finger to Nose Test Normal Performance Pronation/Supination Test Normal Performance Left Finger to Nose Test Moderate Impairment Pronation/Supination Test Severe Impairment Lower Extremity Tests Right Alternate Heel to Knee; Heel to Toe Test Normal Performance Foot Tapping Test Normal Performance Left Alternate Heel to Knee; Heel to Toe Test Severe Impairment Foot Tapping Test Severe Impairment Deep Tendon Reflex & Clonus Assessment Ankle Clonus Right Clonus Assessment Absent Left Clonus Assessment 1 Beat PT-OP-M Strength Start: 02/06/18 07:16 Freq: Status: Active Protocol: Document 02/04/18 12:45 RCC (Rec: 02/06/18 08:08 [facility] [id number]) Shoulder Strength Shoulder Manual Muscle Testing Right Flexion 5 Normal Abduction (C5) 5 Normal External Rotation 5 Normal Internal Rotation 5 Normal Left Flexion 3+ Fair+ Abduction (C5) 3+ Fair+ External Rotation 3+ Fair+ Internal Rotation 3 Fair Hip Strength Hip Manual Muscle Testing Right Flexion (L2) 5 Normal External Rotation 4 Good Internal Rotation 4 Good Left Flexion (L2) 3+ Fair+ External Rotation 3 Fair Internal Rotation 3 Fair Knee Strength Knee Manual Muscle Testing Right Flexion (S2) 4 Good Extension (L3) 5 Normal Left Flexion (S2) 3+ Fair+ Extension (L3) 4- Good- Ankle/Foot Strength Ankle and Foot Manual Muscle Testing Right Dorsiflexion (L4) 5 Normal Plantarflexion (S1) 4 Good Inversion 5 Normal Eversion (S1) 4+ Good+ Left Dorsiflexion (L4) 3 Fair Plantarflexion (S1) 2+ Poor+ Inversion 3+ Fair+ Eversion (S1) 3+ Fair+ PT-OP-Q Treatments Start: 02/06/18 07:16 Freq: Status: Active Protocol: Document 02/09/18 10:33 [facility] (Rec: 02/09/18 11:17 [facility] [id number]) Cardio Equipment Recumbent Elliptical (Biodex) Duration (Minutes) 5 Resistance 1 Seat Position 13 Gym Equipment Shuttle Recovery Unilateral Squats Resistance 25 Shuttle Recovery Platform Stable Reps/Time 1x10 Bilateral Squats Resistance 50 Shuttle Recovery Platform Stable Reps/Time 2x 10 Therapeutic Exercises Standing Exercises sidestepping Reps/Minutes 2 min tandem stand Reps/Minutes 2x ea Comments UE support SLS Reps/Minutes 2x ea Comments UE support Gait Training Gait Activity hurdles Description step overs, 2 steps in between each step Device Used bar on wall Level of Assistance CGA, unil UE support Distance/Duration 2x 5 hurdles fwd Treatment Focus safety, increased LE clearance gait with quad cane Device Used quad cane Level of Assistance SB to CGA Surface level Distance/Duration 120' Treatment Focus safety, gait sequency, clearance of left LE Neuro Re-Education Treatment Balance Activities tiltboard Details standing bal and wt shift: fwd /bck, side both EO Comments ángel UE support PT-OP-T Assessment and Plan Start: 02/06/18 07:16 Freq: Status: Active Protocol: Document 02/09/18 10:33 [facility] (Rec: 02/09/18 16:11 [facility] [id number]) Physical Therapy Assessment Impairments Impairments Activity Tolerance Balance Coordination Functional Activities Functional Mobility Gait Strength Tone Goals Coordination Impairment impaired L UE and LE coordination Short Term Goal (STG) L LE heel to opposite mahajan and alternating heel/toe tapping to moderate impairment or better. STG Duration 6 weeks Care Home Goal (LTG) L LE heel to opposite mahajan and alternating heel/toe tapping to minimal impairment or better. LTG Duration 12 weeks Balance Impairment unable to perform SL balance, tandem standing impaired Short Term Goal (STG) tandem standing to 10 sec each situation, SL balance 2 sec on L foot to demonstrate decreased fall risk. STG Duration 6 weeks Fur Finisher Goal (LTG) tandem standing to 15 sec each situation, SL balance 5 sec on L foot to demonstrate decreased fall risk. LTG Duration 12 weeks weakness Impairment L lower extremity weakness Short Term Goal (STG) LLE manual muscle testing to at least 4-/5. STG Duration 6 weeks Care Home Goal (LTG) LLE manual muscle testing to at least 4/5 grossly to improve functional mobility and tolerance to stepping up/ down curbs and stairs with good LE control. Gait Impairment short outdoor ambulation level ground with FWW, decreased L foot clearance Short Term Goal (STG) Pt will ambulate 50 ft outdoors on level ground with quad cane and 100% L foot clearance, modified independent. STG Duration 6 weeks Fur Finisher Goal (LTG) Pt will ambulate 300 ft outdoors on level ground with quad cane and 100% L foot clearance, modified independent. LTG Duration 12 weeks Timed Up and Go Impairment 24.46 seconds Short Term Goal (STG) 19 sec or less with Timed Up and Go test with least restrictive assistive device to improve gait speed and decrease fall risk. STG Duration 6 weeks Fur Finisher Goal (LTG) 13 sec or less with Timed Up and Go test with least restrictive assistive deviceto improve gait speed and decrease fall risk. LTG Duration 12 weeks Assessment Summary Assessment Patient came to PT today without assistive device, gait unsafe. States I thought maybe I could walk without it but now I see I need it. Assisted from waiting room with mod handheld assist. Patient required instruction for safe use of quad cane occasional catching of toe on floor with initiation of swing phase of gait left. Instructed to use walker outdoors and in community, may use quad cane at home unless fatigued. Physical Therapy Plan Frequency and Duration Frequency of Treatment 2x/Week Duration of Treatment 12 weeks Plan of Care Start Date 02/04/18 Plan of Care End Date 04/29/18 Therapeutic Interventions Therapeutic Interventions Aquatic Therapy Balance Training Coordination Training Gait Training Home Exercise Program Manual Therapy Neuromuscular Re-education Orthotic/Prosthetic Management Patient/Caregiver Education Self-Care/Home Management Soft Tissue Mobilization Taping Therapeutic Activities Therapeutic Exercises Modalities Cold Pack/Ice Massage Hot Packs Next Visit Focus/Plan Next Note Type Treatment Note Next Visit Plan Continue to progress with strengthening, gait training ( add gait training on stairs), balance. Try shuttle balance activities.
--- NOTE | 2018-02-11 12:45 | PT.OTN ---
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) Other reduced mobility (02/11/18) Physical Therapy Treatment Note PT-OP-A Visit Information Start: 02/06/18 07:16 Freq: Status: Active Protocol: Document 02/11/18 12:45 RCC (Rec: 02/11/18 13:33 RCC [email or web address]) Out-Patient Physical Therapy Visit Information Visit Information Visit Type Treatment Note Visit Start Time 12:02 Visit Stop Time 12:45 Total Visit Minutes 43 Visit Number 3 Number of HARD HAT DIVER Visits 0 Evaluation Information Evaluation Date 02/04/18 Precautions Precautions L toe drag occasionally with gait, fall risk PT-OP-B Current Condition Start: 02/06/18 07:16 Freq: Status: Active Protocol: Document 02/04/18 12:45 RCC (Rec: 02/06/18 08:08 RCC [email or web address]) Current Condition History of Current Condition Onset Date 12/27/17 Current Complaints impaired gait, weakness LUE and LE, poor balance History of Current Condition Pt is a 68 y/o male presenting to outpatient physical therapy with a c/o L sided UE and LE weakness, impaired gait and balance, and general difficulty with mobility and loss of function s/p CVA (R MCA). Pt initially brought to on 12/27/17 with slurred speech, L UE/LE weakness. He was administered tPA at , continued to have recurring symptoms of HTN, slurred speech, and L sided weakness. He was airlifted to [facility] , but transported from helicopter to [facility] for further evaluation and treatment. He spent a couple of weeks of rehab at [facility], and returned home with (see PT notes for rehab in paper chart). Pt is receiving hand therapy at [facility] in [place], he is unsure if he will get UE strengthening and treatment there beyond his hand. His prior level of function is indep. gait without a device. 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 He is not yet driving. He is using a FWW for gait, he does not yet feel safe with the quad cane with ambulation. CVA affected both L UE and LE. He has baseline low back pain with R sided sciatic symptoms ( treated @ this clinic years prior to this as well). Prior Treatments and Tests tPA @ [facility] then airlift and transport to [facility] with rehab. Future Testing and Treatments Planned OT for UE strengthening, coordination, function- recommend referral for this to be performed @ [facility] ( receiving hand therapy only) or @ [facility] for OT as well as PT. Treatment Goals Patient/Caregiver Goals improve gait, balance, strength, functional independence. Prior Functional Status Baseline Function- ADL's Independent Baseline Function- Mobility Independent Baseline Function- Gait short community ambulation without device Baseline Function- Work/School working @ [employer] and fixing/up-keep on own home Current Functional Impairments (Reported) Functional Limitations- ADL's assistance with dressing, bathing Functional Limitations- Mobility/Gait modified indep. gait indoors and level outdoors with FWW Functional Limitations- Work/School unable to work Personal Factors Other Personal Factors That May Effect currently with lymphoma ( Therapy/Recovery diagnosed prior to CVA but no treatment due to CVA) as well as a bad heart valve) which lymphoma and CVA also has hindered treatment. Baseline low back pain with R sided sciatic. Obesity, although lost weight recently. PT-OP-C Subjective Start: 02/06/18 07:16 Freq: Status: Active Protocol: Document 02/11/18 12:45 RCC (Rec: 02/11/18 13:33 RCC [email or web address]) OP-PT Subjective Patient Comments Patient Comments Pt has been using quad cane indoors, but is now using FWW at all times outside of home. PT-OP-D Balance Start: 02/06/18 07:16 Freq: Status: Active Protocol: Document 02/04/18 12:45 RCC (Rec: 02/06/18 08:08 RCC [email or web address]) Balance Tests Single Limb Standing Single Limb- Right 5 sec Single Limb- Left unable Tandem Tandem Standing R posterior 15 sec, L posterior 3 sec PT-OP-E Functional Tests Start: 02/06/18 07:16 Freq: Status: Active Protocol: Document 02/04/18 12:45 RCC (Rec: 02/06/18 08:08 RCC [email or web address]) Functional Tests Timed Up and Go (TUG) Score 24.46 Comments FWW TUG Impairment Rating 100% Impaired (Score 20) PT-OP-G Mobility & Gait Start: 02/06/18 07:16 Freq: Status: Active Protocol: Document 02/11/18 12:45 RCC (Rec: 02/11/18 13:33 RCC [email or web address]) OP Gait Assessment Comments Gait Comments toe drag x4 with 120 ft of ambulation at end of session using quad cane PT-OP-H Neuro Start: 02/06/18 07:16 Freq: Status: Active Protocol: Document 02/04/18 12:45 RCC (Rec: 02/06/18 08:08 [facility] [email or web address]) Sensation Evaluation Comments Summary Comments pt reports sensation intact UE and LE Coordination Evaluation Upper Extremity Tests Right Finger to Nose Test Normal Performance Pronation/Supination Test Normal Performance Left Finger to Nose Test Moderate Impairment Pronation/Supination Test Severe Impairment Lower Extremity Tests Right Alternate Heel to Knee; Heel to Toe Test Normal Performance Foot Tapping Test Normal Performance Left Alternate Heel to Knee; Heel to Toe Test Severe Impairment Foot Tapping Test Severe Impairment Deep Tendon Reflex & Clonus Assessment Ankle Clonus Right Clonus Assessment Absent Left Clonus Assessment 1 Beat PT-OP-M Strength Start: 02/06/18 07:16 Freq: Status: Active Protocol: Document 02/04/18 12:45 RCC (Rec: 02/06/18 08:08 [facility] [email or web address]) Shoulder Strength Shoulder Manual Muscle Testing Right Flexion 5 Normal Abduction (C5) 5 Normal External Rotation 5 Normal Internal Rotation 5 Normal Left Flexion 3+ Fair+ Abduction (C5) 3+ Fair+ External Rotation 3+ Fair+ Internal Rotation 3 Fair Hip Strength Hip Manual Muscle Testing Right Flexion (L2) 5 Normal External Rotation 4 Good Internal Rotation 4 Good Left Flexion (L2) 3+ Fair+ External Rotation 3 Fair Internal Rotation 3 Fair Knee Strength Knee Manual Muscle Testing Right Flexion (S2) 4 Good Extension (L3) 5 Normal Left Flexion (S2) 3+ Fair+ Extension (L3) 4- Good- Ankle/Foot Strength Ankle and Foot Manual Muscle Testing Right Dorsiflexion (L4) 5 Normal Plantarflexion (S1) 4 Good Inversion 5 Normal Eversion (S1) 4+ Good+ Left Dorsiflexion (L4) 3 Fair Plantarflexion (S1) 2+ Poor+ Inversion 3+ Fair+ Eversion (S1) 3+ Fair+ PT-OP-Q Treatments Start: 02/06/18 07:16 Freq: Status: Active Protocol: Document 02/11/18 12:45 RCC (Rec: 02/11/18 13:33 RCC [email or web address]) Gym Equipment Shuttle Balance 1 Details Red Reps/Duration 9 min Comments A/P- DL EO Therapeutic Exercises Sitting Exercises ankle DF Sitting Exercise Name ankle DF Side left Resistance L1 band Reps/Minutes x30 reps Standing Exercises hip ROM Standing Exercise Name L hip abduction and extension with L foot on scooter board Side left Equipment Used scooter board, UE support on / / bars Reps/Minutes 10 each Comments emphasis on neutral posture, pelvic alignment sidestepping Standing Exercise Name over hurdles sidestepping Side bilateral Equipment Used // bars Reps/Minutes 2 laps each direction in // bars Gait Training Gait Activity hurdles Description step overs, 2 steps in between each step Device Used bar on wall Level of Assistance CGA, unil UE support Distance/Duration 2x 5 hurdles fwd Treatment Focus safety, increased LE clearance gait with quad cane Device Used quad cane Level of Assistance SB to CGA Surface level Distance/Duration 2x120' Treatment Focus safety, gait sequence, clearance of left LE PT-OP-T Assessment and Plan Start: 02/06/18 07:16 Freq: Status: Active Protocol: Document 02/11/18 12:45 [facility] (Rec: 02/11/18 13:33 RCC [email or web address]) Physical Therapy Assessment Assessment Summary Assessment Pt with 4 toe drags of the LLE when ambulating with quad cane 120 ft, but improved pelvic control with verbal and tactile cuing. Pt with increased fatigue standing on Shuttle Balance, lacks appropriate ankle strategy on the L. Physical Therapy Plan Next Visit Focus/Plan Next Note Type Treatment Note Next Visit Plan stairs/step up/down, progress standing balance and coordination; gait as tolerated.
--- NOTE | 2018-02-18 13:27 | PT.OTN ---
Current Diagnoses Hemiplegia, unspecified affecting left nondominant side (02/18/18) Cerebral infarction due to unspecified occlusion or stenosis of right middle cerebral artery (02/18/18) Neurologic neglect syndrome (02/18/18) Other reduced mobility (02/18/18) Physical Therapy Treatment Note PT-OP-A Visit Information Start: 02/06/18 07:16 Freq: Status: Active Protocol: Document 02/18/18 12:00 HH (Rec: 02/18/18 13:27 HH [email or web address]) Out-Patient Physical Therapy Visit Information Visit Information Visit Type Treatment Note Visit Start Time 12:00 Visit Stop Time 12:45 Total Visit Minutes 45 Visit Number 4 Number of CORPORATE LOGISTICS MANAGER Visits 0 PT-OP-B Current Condition Start: 02/06/18 07:16 Freq: Status: Active Protocol: Document 02/04/18 12:45 RCC (Rec: 02/06/18 08:08 RCC [email or web address]) Current Condition History of Current Condition Onset Date 12/27/17 Current Complaints impaired gait, weakness LUE and LE, poor balance History of Current Condition Pt is a 68 y/o male presenting to outpatient physical therapy with a c/o L sided UE and LE weakness, impaired gait and balance, and general difficulty with mobility and loss of function s/p CVA (R MCA). Pt initially brought to on 12/27/17 with slurred speech, L UE/LE weakness. He was administered tPA at , continued to have recurring symptoms of HTN, slurred speech, and L sided weakness. He was airlifted to [facility] , but transported from helicopter to [facility] for further evaluation and treatment. He spent a couple of weeks of rehab at [facility], and returned home with (see PT notes for rehab in paper chart). Pt is receiving hand therapy at [facility] in [place], he is unsure if he will get UE strengthening and treatment there beyond his hand. His prior level of function is indep. gait without a device. 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 He is not yet driving. He is using a FWW for gait, he does not yet feel safe with the quad cane with ambulation. CVA affected both L UE and LE. He has baseline low back pain with R sided sciatic symptoms ( treated @ this clinic years prior to this as well). Prior Treatments and Tests [facility]PA [facility] then airlift and transport to [facility] with rehab. Future Testing and Treatments Planned OT for UE strengthening, coordination, function- recommend referral for this to be performed @ current [facility] ( receiving hand therapy only) or @ [facility] for OT as well as PT. Treatment Goals Patient/Caregiver Goals improve gait, balance, strength, functional independence. Prior Functional Status Baseline Function- ADL's Independent Baseline Function- Mobility Independent Baseline Function- Gait short community ambulation without device Baseline Function- Work/School working @ [employer] and fixing/up-keep on own home Current Functional Impairments (Reported) Functional Limitations- ADL's assistance with dressing, bathing Functional Limitations- Mobility/Gait modified indep. gait indoors and level outdoors with FWW Functional Limitations- Work/School unable to work Personal Factors Other Personal Factors That May Effect currently with lymphoma ( Therapy/Recovery diagnosed prior to CVA but no treatment due to CVA) as well as a bad heart valve) which lymphoma and CVA also has hindered treatment. Baseline low back pain with R sided sciatic. Obesity, although lost weight recently. PT-OP-C Subjective Start: 02/06/18 07:16 Freq: Status: Active Protocol: Document 02/18/18 12:00 HH (Rec: 02/18/18 13:27 HH [email or web address]) OP-PT Subjective Patient Comments Patient Comments Pt compliant to HEP and reports his L LE has been getting stronger. He also states his sit to stand is getting easier. PT-OP-D Balance Start: 02/06/18 07:16 Freq: Status: Active Protocol: Document 02/04/18 12:45 RCC (Rec: 02/06/18 08:08 RCC [email or web address]) Balance Tests Single Limb Standing Single Limb- Right 5 sec Single Limb- Left unable Tandem Tandem Standing R posterior 15 sec, L posterior 3 sec PT-OP-E Functional Tests Start: 02/06/18 07:16 Freq: Status: Active Protocol: Document 02/04/18 12:45 RCC (Rec: 02/06/18 08:08 RCC [email or web address]) Functional Tests Timed Up and Go (TUG) Score 24.46 Comments FWW TUG Impairment Rating 100% Impaired (Score 20) PT-OP-G Mobility & Gait Start: 02/06/18 07:16 Freq: Status: Active Protocol: Document 02/11/18 12:45 RCC (Rec: 02/11/18 13:33 RCC [email or web address]) OP Gait Assessment Comments Gait Comments toe drag x4 with 120 ft of ambulation at end of session using quad cane PT-OP-H Neuro Start: 02/06/18 07:16 Freq: Status: Active Protocol: Document 02/04/18 12:45 RCC (Rec: 02/06/18 08:08 RCC [email or web address]) Sensation Evaluation Comments Summary Comments pt reports sensation intact UE and LE Coordination Evaluation Upper Extremity Tests Right Finger to Nose Test Normal Performance Pronation/Supination Test Normal Performance Left Finger to Nose Test Moderate Impairment Pronation/Supination Test Severe Impairment Lower Extremity Tests Right Alternate Heel to Knee; Heel to Toe Test Normal Performance Foot Tapping Test Normal Performance Left Alternate Heel to Knee; Heel to Toe Test Severe Impairment Foot Tapping Test Severe Impairment Deep Tendon Reflex & Clonus Assessment Ankle Clonus Right Clonus Assessment Absent Left Clonus Assessment 1 Beat PT-OP-M Strength Start: 02/06/18 07:16 Freq: Status: Active Protocol: Document 02/04/18 12:45 RCC (Rec: 02/06/18 08:08 RCC [email or web address]) Shoulder Strength Shoulder Manual Muscle Testing Right Flexion 5 Normal Abduction (C5) 5 Normal External Rotation 5 Normal Internal Rotation 5 Normal Left Flexion 3+ Fair+ Abduction (C5) 3+ Fair+ External Rotation 3+ Fair+ Internal Rotation 3 Fair Hip Strength Hip Manual Muscle Testing Right Flexion (L2) 5 Normal External Rotation 4 Good Internal Rotation 4 Good Left Flexion (L2) 3+ Fair+ External Rotation 3 Fair Internal Rotation 3 Fair Knee Strength Knee Manual Muscle Testing Right Flexion (S2) 4 Good Extension (L3) 5 Normal Left Flexion (S2) 3+ Fair+ Extension (L3) 4- Good- Ankle/Foot Strength Ankle and Foot Manual Muscle Testing Right Dorsiflexion (L4) 5 Normal Plantarflexion (S1) 4 Good Inversion 5 Normal Eversion (S1) 4+ Good+ Left Dorsiflexion (L4) 3 Fair Plantarflexion (S1) 2+ Poor+ Inversion 3+ Fair+ Eversion (S1) 3+ Fair+ PT-OP-Q Treatments Start: 02/06/18 07:16 Freq: Status: Active Protocol: Document 02/18/18 12:00 HH (Rec: 02/18/18 13:27 [email or web address]) Therapeutic Exercises Sitting Exercises sitting cane stretch Equipment Used cane Comments seated arm reach with cane, L shoulder flexion, abduction and scaption hip hinge for sit to stand Sitting Exercise Name use hip hinge (rocking motion ) Reps/Minutes 10 mins sit to stand with 4 inch stool under R LE Reps/Minutes 10 mins Standing Exercises step over 3 inch griselda Comments To facilitate SLS on L; hip flexion and DF on L PT-OP-T Assessment and Plan Start: 02/06/18 07:16 Freq: Status: Active Protocol: Document 02/18/18 12:00 HH (Rec: 02/18/18 13:27 [email or web address]) Physical Therapy Assessment Progress Towards Goals Progress Towards Goals Progressing Toward Goals Assessment Summary Assessment Pt presents increased tolerance for therex. New HEP with seated arm reaching with cane to increase overall L GH ROM; sit to stand with 4 inch box under R LE to facilitate L LE strengthening; Hip hinge rocking motion during STS. Pt demonstrates improved SLS on L LE during stance phase and L swing phase for foot clearance throught step over therex today. Pt requires constant cues to inhibit circumduction for foot clearance and upright posture during amb. Physical Therapy Plan Next Visit Focus/Plan Next Note Type Treatment Note Next Visit Plan cont step over griselda ex, sit to stand with emphasis on LLE, overall balance training
--- NOTE | 2018-02-24 14:30 | PT.OTN ---
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) Other reduced mobility (02/24/18) Physical Therapy Treatment Note PT-OP-A Visit Information Start: 02/06/18 07:16 Freq: Status: Active Protocol: Document 02/24/18 14:30 RCC (Rec: 02/24/18 14:49 RCC [email or web address]) Out-Patient Physical Therapy Visit Information Visit Information Visit Type Treatment Note Visit Start Time 13:46 Visit Stop Time 14:30 Total Visit Minutes 44 Visit Number 5 Number of WATCH PARTS INSPECTOR Visits 0 Evaluation Information Evaluation Date 02/04/18 Precautions Precautions L toe drag occasionally with gait, fall risk PT-OP-B Current Condition Start: 02/06/18 07:16 Freq: Status: Active Protocol: Document 02/04/18 12:45 RCC (Rec: 02/06/18 08:08 RCC [email or web address]) Current Condition History of Current Condition Onset Date 12/27/17 Current Complaints impaired gait, weakness LUE and LE, poor balance History of Current Condition Pt is a 68 y/o male presenting to outpatient physical therapy with a c/o L sided UE and LE weakness, impaired gait and balance, and general difficulty with mobility and loss of function s/p CVA (R MCA). Pt initially brought to on 12/27/17 with slurred speech, L UE/LE weakness. He was administered tPA at , continued to have recurring symptoms of HTN, slurred speech, and L sided weakness. He was airlifted to [facility] , but transported from helicopter to [facility] for further evaluation and treatment. He spent a couple of weeks of rehab at [facility], and returned home with (see PT notes for rehab in paper chart). Pt is receiving hand therapy at [facility] in [place], he is unsure if he will get UE strengthening and treatment there beyond his hand. His prior level of function is indep. gait without a device. 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 He is not yet driving. He is using a FWW for gait, he does not yet feel safe with the quad cane with ambulation. CVA affected both L UE and LE. He has baseline low back pain with R sided sciatic symptoms ( treated @ this clinic years prior to this as well). Prior Treatments and Tests tPA @ [facility] then airlift and transport to [facility] with rehab. Future Testing and Treatments Planned OT for UE strengthening, coordination, function- recommend referral for this to be performed @ [facility] ( receiving hand therapy only) or @ [facility] for OT as well as PT. Treatment Goals Patient/Caregiver Goals improve gait, balance, strength, functional independence. Prior Functional Status Baseline Function- ADL's Independent Baseline Function- Mobility Independent Baseline Function- Gait short community ambulation without device Baseline Function- Work/School working @ [employer] and fixing/up-keep on own home Current Functional Impairments (Reported) Functional Limitations- ADL's assistance with dressing, bathing Functional Limitations- Mobility/Gait modified indep. gait indoors and level outdoors with FWW Functional Limitations- Work/School unable to work Personal Factors Other Personal Factors That May Effect currently with lymphoma ( Therapy/Recovery diagnosed prior to CVA but no treatment due to CVA) as well as a bad heart valve) which lymphoma and CVA also has hindered treatment. Baseline low back pain with R sided sciatic. Obesity, although lost weight recently. PT-OP-C Subjective Start: 02/06/18 07:16 Freq: Status: Active Protocol: Document 02/24/18 14:30 RCC (Rec: 02/24/18 14:49 RCC [email or web address]) OP-PT Subjective Patient Comments Patient Comments Pt states his compliance was iffy during the holidays. He does still feel like he cannot trust his L leg all of the time. PT-OP-D Balance Start: 02/06/18 07:16 Freq: Status: Active Protocol: Document 02/04/18 12:45 RCC (Rec: 02/06/18 08:08 RCC [email or web address]) Balance Tests Single Limb Standing Single Limb- Right 5 sec Single Limb- Left unable Tandem Tandem Standing R posterior 15 sec, L posterior 3 sec PT-OP-E Functional Tests Start: 02/06/18 07:16 Freq: Status: Active Protocol: Document 02/04/18 12:45 RCC (Rec: 02/06/18 08:08 RCC [email or web address]) Functional Tests Timed Up and Go (TUG) Score 24.46 Comments FWW TUG Impairment Rating 100% Impaired (Score 20) PT-OP-G Mobility & Gait Start: 02/06/18 07:16 Freq: Status: Active Protocol: Document 02/11/18 12:45 RCC (Rec: 02/11/18 13:33 RCC [email or web address]) OP Gait Assessment Comments Gait Comments toe drag x4 with 120 ft of ambulation at end of session using quad cane PT-OP-H Neuro Start: 02/06/18 07:16 Freq: Status: Active Protocol: Document 02/04/18 12:45 RCC (Rec: 02/06/18 08:08 [facility] [email or web address]) Sensation Evaluation Comments Summary Comments pt reports sensation intact UE and LE Coordination Evaluation Upper Extremity Tests Right Finger to Nose Test Normal Performance Pronation/Supination Test Normal Performance Left Finger to Nose Test Moderate Impairment Pronation/Supination Test Severe Impairment Lower Extremity Tests Right Alternate Heel to Knee; Heel to Toe Test Normal Performance Foot Tapping Test Normal Performance Left Alternate Heel to Knee; Heel to Toe Test Severe Impairment Foot Tapping Test Severe Impairment Deep Tendon Reflex & Clonus Assessment Ankle Clonus Right Clonus Assessment Absent Left Clonus Assessment 1 Beat PT-OP-M Strength Start: 02/06/18 07:16 Freq: Status: Active Protocol: Document 02/04/18 12:45 RCC (Rec: 02/06/18 08:08 RCC [email or web address]) Shoulder Strength Shoulder Manual Muscle Testing Right Flexion 5 Normal Abduction (C5) 5 Normal External Rotation 5 Normal Internal Rotation 5 Normal Left Flexion 3+ Fair+ Abduction (C5) 3+ Fair+ External Rotation 3+ Fair+ Internal Rotation 3 Fair Hip Strength Hip Manual Muscle Testing Right Flexion (L2) 5 Normal External Rotation 4 Good Internal Rotation 4 Good Left Flexion (L2) 3+ Fair+ External Rotation 3 Fair Internal Rotation 3 Fair Knee Strength Knee Manual Muscle Testing Right Flexion (S2) 4 Good Extension (L3) 5 Normal Left Flexion (S2) 3+ Fair+ Extension (L3) 4- Good- Ankle/Foot Strength Ankle and Foot Manual Muscle Testing Right Dorsiflexion (L4) 5 Normal Plantarflexion (S1) 4 Good Inversion 5 Normal Eversion (S1) 4+ Good+ Left Dorsiflexion (L4) 3 Fair Plantarflexion (S1) 2+ Poor+ Inversion 3+ Fair+ Eversion (S1) 3+ Fair+ PT-OP-Q Treatments Start: 02/06/18 07:16 Freq: Status: Active Protocol: Document 02/24/18 14:30 RCC (Rec: 02/24/18 16:24 RCC [email or web address]) Cardio Equipment Recumbent Elliptical (Biodex) Duration (Minutes) 6 Resistance 1 Seat Position 14 Gym Equipment Shuttle Recovery Unilateral Squats Resistance 25 Shuttle Recovery Platform Stable Reps/Time 1x15 Bilateral Squats Resistance 62 Shuttle Recovery Platform Stable Reps/Time 2x 12 Therapeutic Exercises Sitting Exercises ankle DF Sitting Exercise Name ankle DF Side left Resistance L1 band Reps/Minutes x30 reps Gait Training Gait Activity hurdles Description step overs, 2 steps in between each step Device Used // bars Level of Assistance CGA, unil UE support Distance/Duration 2x 5 hurdles fwd Treatment Focus safety, increased LE clearance gait with quad cane Device Used quad cane Level of Assistance SB to CGA Surface level Distance/Duration 2x150' Treatment Focus safety, gait sequence, clearance of left LE Neuro Re-Education Treatment Balance Activities SLS Details single leg stance Surface firm, level Comments left, 3x30 sec with occasional UE assist Coordination Activities toe tapping on cones Details toe tapping on cones of various colors in triangle pattern Equipment // bars PT-OP-T Assessment and Plan Start: 02/06/18 07:16 Freq: Status: Active Protocol: Document 02/24/18 14:30 RCC (Rec: 02/24/18 16:24 RCC [email or web address]) Physical Therapy Assessment Assessment Summary Assessment Pt continues to have impaired LLE coordination and strength, and fatigues quickly with unilateral exercises when using the affected LLE. Physical Therapy Plan Frequency and Duration Frequency of Treatment 2x/Week Duration of Treatment 12 weeks Plan of Care Start Date 02/04/18 Plan of Care End Date 04/29/18 Next Visit Focus/Plan Next Note Type Treatment Note Next Visit Plan prog. balance, coordination, and strength; gait training as tolerated.
--- NOTE | 2018-03-03 12:47 | PT.OTN ---
Current Diagnoses Hemiplegia, unspecified affecting left nondominant side (03/03/18) Cerebral infarction due to unspecified occlusion or stenosis of right middle cerebral artery (03/03/18) Neurologic neglect syndrome (03/03/18) Other reduced mobility (03/03/18) Physical Therapy Treatment Note PT-OP-A Visit Information Start: 02/06/18 07:16 Freq: Status: Active Protocol: Document 03/03/18 12:47 RCC (Rec: 03/03/18 13:38 RCC [email or web address]) Out-Patient Physical Therapy Visit Information Visit Information Visit Type Treatment Note Visit Start Time 12:00 Visit Stop Time 12:47 Total Visit Minutes 47 Visit Number 6 Number of MIX CRUSHER OPERATOR Visits 0 Evaluation Information Evaluation Date 02/04/18 PT-OP-B Current Condition Start: 02/06/18 07:16 Freq: Status: Active Protocol: Document 02/04/18 12:45 RCC (Rec: 02/06/18 08:08 RCC [email or web address]) Current Condition History of Current Condition Onset Date 12/27/17 Current Complaints impaired gait, weakness LUE and LE, poor balance History of Current Condition Pt is a 68 y/o male presenting to outpatient physical therapy with a c/o L sided UE and LE weakness, impaired gait and balance, and general difficulty with mobility and loss of function s/p CVA (R MCA). Pt initially brought to on 12/27/17 with slurred speech, L UE/LE weakness. He was administered tPA at , continued to have recurring symptoms of HTN, slurred speech, and L sided weakness. He was airlifted to [facility] , but transported from helicopter to [facility] for further evaluation and treatment. He spent a couple of weeks of rehab at [facility], and returned home with (see PT notes for rehab in paper chart). Pt is receiving hand therapy at [facility] in [place], he is unsure if he will get UE strengthening and treatment there beyond his hand. His prior level of function is indep. gait without a device. 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 He is not yet driving. He is using a FWW for gait, he does not yet feel safe with the quad cane with ambulation. CVA affected both L UE and LE. He has baseline low back pain with R sided sciatic symptoms ( treated @ this clinic years prior to this as well). Prior Treatments and Tests [facility]PA @ [facility] then airlift and transport to [facility] with rehab. Future Testing and Treatments Planned OT for UE strengthening, coordination, function- recommend referral for this to be performed @ current [facility] ( receiving hand therapy only) or @ [facility] for OT as well as PT. Treatment Goals Patient/Caregiver Goals improve gait, balance, strength, functional independence. Prior Functional Status Baseline Function- ADL's Independent Baseline Function- Mobility Independent Baseline Function- Gait short community ambulation without device Baseline Function- Work/School working @ [employer] and fixing/up-keep on own home Current Functional Impairments (Reported) Functional Limitations- ADL's assistance with dressing, bathing Functional Limitations- Mobility/Gait modified indep. gait indoors and level outdoors with FWW Functional Limitations- Work/School unable to work Personal Factors Other Personal Factors That May Effect currently with lymphoma ( Therapy/Recovery diagnosed prior to CVA but no treatment due to CVA) as well as a bad heart valve) which lymphoma and CVA also has hindered treatment. Baseline low back pain with R sided sciatic. Obesity, although lost weight recently. PT-OP-C Subjective Start: 02/06/18 07:16 Freq: Status: Active Protocol: Document 03/03/18 12:47 RCC (Rec: 03/03/18 13:38 RCC [email or web address]) OP-PT Subjective Patient Comments Patient Comments Pt notes that he has been more compliant with his HEP and was able to walk for 30 min x2 the other day outdoors using his FWW. PT-OP-D Balance Start: 02/06/18 07:16 Freq: Status: Active Protocol: Document 02/04/18 12:45 RCC (Rec: 02/06/18 08:08 RCC [email or web address]) Balance Tests Single Limb Standing Single Limb- Right 5 sec Single Limb- Left unable Tandem Tandem Standing R posterior 15 sec, L posterior 3 sec PT-OP-E Functional Tests Start: 02/06/18 07:16 Freq: Status: Active Protocol: Document 02/04/18 12:45 RCC (Rec: 02/06/18 08:08 RCC [email or web address]) Functional Tests Timed Up and Go (TUG) Score 24.46 Comments FWW TUG Impairment Rating 100% Impaired (Score 20) PT-OP-G Mobility & Gait Start: 02/06/18 07:16 Freq: Status: Active Protocol: Document 02/11/18 12:45 RCC (Rec: 02/11/18 13:33 RCC [email or web address]) OP Gait Assessment Comments Gait Comments toe drag x4 with 120 ft of ambulation at end of session using quad cane PT-OP-H Neuro Start: 02/06/18 07:16 Freq: Status: Active Protocol: Document 02/04/18 12:45 RCC (Rec: 02/06/18 08:08 [facility] [email or web address]) Sensation Evaluation Comments Summary Comments pt reports sensation intact UE and LE Coordination Evaluation Upper Extremity Tests Right Finger to Nose Test Normal Performance Pronation/Supination Test Normal Performance Left Finger to Nose Test Moderate Impairment Pronation/Supination Test Severe Impairment Lower Extremity Tests Right Alternate Heel to Knee; Heel to Toe Test Normal Performance Foot Tapping Test Normal Performance Left Alternate Heel to Knee; Heel to Toe Test Severe Impairment Foot Tapping Test Severe Impairment Deep Tendon Reflex & Clonus Assessment Ankle Clonus Right Clonus Assessment Absent Left Clonus Assessment 1 Beat PT-OP-M Strength Start: 02/06/18 07:16 Freq: Status: Active Protocol: Document 02/04/18 12:45 RCC (Rec: 02/06/18 08:08 [facility] [email or web address]) Shoulder Strength Shoulder Manual Muscle Testing Right Flexion 5 Normal Abduction (C5) 5 Normal External Rotation 5 Normal Internal Rotation 5 Normal Left Flexion 3+ Fair+ Abduction (C5) 3+ Fair+ External Rotation 3+ Fair+ Internal Rotation 3 Fair Hip Strength Hip Manual Muscle Testing Right Flexion (L2) 5 Normal External Rotation 4 Good Internal Rotation 4 Good Left Flexion (L2) 3+ Fair+ External Rotation 3 Fair Internal Rotation 3 Fair Knee Strength Knee Manual Muscle Testing Right Flexion (S2) 4 Good Extension (L3) 5 Normal Left Flexion (S2) 3+ Fair+ Extension (L3) 4- Good- Ankle/Foot Strength Ankle and Foot Manual Muscle Testing Right Dorsiflexion (L4) 5 Normal Plantarflexion (S1) 4 Good Inversion 5 Normal Eversion (S1) 4+ Good+ Left Dorsiflexion (L4) 3 Fair Plantarflexion (S1) 2+ Poor+ Inversion 3+ Fair+ Eversion (S1) 3+ Fair+ PT-OP-Q Treatments Start: 12/08/18 07:16 Freq: Status: Active Protocol: Document 03/03/18 12:47 RCC (Rec: 03/03/18 13:38 RCC [email or web address]) Gym Equipment Shuttle Recovery Unilateral Heel Raises Resistance 25 Shuttle Recovery Platform Stable Reps/Time manual assist for foot placement (left) Unilateral Squats Resistance 25 Shuttle Recovery Platform Stable Reps/Time 1x15 Bilateral Squats Resistance 62 Shuttle Recovery Platform Stable Reps/Time 1x15 Shuttle Balance 1 Details Red Reps/Duration 12 min Comments A/P- DL EO and semi-tandem, lateral WBOS and balance Therapeutic Exercises Supine Exercises hip ER Side bilateral Resistance L2 Reps/Minutes x10 bridging Reps/Minutes x10 Comments manual assist for WB through LLE hip adduction Supine Exercise Name ball squeeze Side bilateral Reps/Minutes x10 with 5 sec hold SLR Supine Exercise Name hip flexion Side bilateral Reps/Minutes x10 each Sidelying Exercises clamshells Side left Reps/Minutes x10 Comments manual assist for pelvis Gait Training Gait Activity gait with quad cane Device Used quad cane Level of Assistance SBA Surface level Distance/Duration 185' Treatment Focus safety, gait sequency, clearance of left LE PT-OP-T Assessment and Plan Start: 02/06/18 07:16 Freq: Status: Active Protocol: Document 03/03/18 12:47 RCC (Rec: 03/03/18 13:38 RCC [email or web address]) Physical Therapy Assessment Assessment Summary Assessment Pt with difficulty maintaining hip and core stability with supine exercises, requiring manual assistance with alignment. present and educated on how to perform and importance of good body mechanics. Physical Therapy Plan Frequency and Duration Frequency of Treatment 2x/Week Duration of Treatment 12 weeks Plan of Care Start Date 02/04/18 Plan of Care End Date 04/29/18 Next Visit Focus/Plan Next Note Type Treatment Note Next Visit Plan prog. gait, standing balance, and LLE strength and coordination
--- NOTE | 2018-03-05 12:00 | PT.OTN ---
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) Other reduced mobility (03/05/18) Physical Therapy Treatment Note PT-OP-A Visit Information Start: 02/06/18 07:16 Freq: Status: Active Protocol: Document 03/05/18 12:00 RCC (Rec: 03/05/18 13:29 RCC [email or web address]) Out-Patient Physical Therapy Visit Information Visit Information Visit Type Treatment Note Visit Start Time 11:17 Visit Stop Time 12:00 Total Visit Minutes 43 Visit Number [address] RADIO INSTALLER Visits 0 Evaluation Information Evaluation Date 02/04/18 PT-OP-B Current Condition Start: 02/06/18 07:16 Freq: Status: Active Protocol: Document 02/04/18 12:45 RCC (Rec: 02/06/18 08:08 RCC [email or web address]) Current Condition History of Current Condition Onset Date 12/27/17 Current Complaints impaired gait, weakness LUE and LE, poor balance History of Current Condition Pt is a 68 y/o male presenting to outpatient physical therapy with a c/o L sided UE and LE weakness, impaired gait and balance, and general difficulty with mobility and loss of function s/p CVA (R MCA). Pt initially brought to on 12/27/17 with slurred speech, L UE/LE weakness. He was administered tPA at , continued to have recurring symptoms of HTN, slurred speech, and L sided weakness. He was airlifted to [facility] , but transported from helicopter to [facility] for further evaluation and treatment. He spent a couple of weeks of rehab at [facility], and returned home with (see PT notes for rehab in paper chart). Pt is receiving hand therapy at [facility] in [place], he is unsure if he will get UE strengthening and treatment there beyond his hand. His prior level of function is indep. gait without a device. 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 He is not yet driving. He is using a FWW for gait, he does not yet feel safe with the quad cane with ambulation. CVA affected both L UE and LE. He has baseline low back pain with R sided sciatic symptoms ( treated @ this clinic years prior to this as well). Prior Treatments and Tests tPA @ [facility] then airlift and transport to [facility] with rehab. Future Testing and Treatments Planned OT for UE strengthening, coordination, function- recommend referral for this to be performed @ [facility] ( receiving hand therapy only) or @ [facility] for OT as well as PT. Treatment Goals Patient/Caregiver Goals improve gait, balance, strength, functional independence. Prior Functional Status Baseline Function- ADL's Independent Baseline Function- Mobility Independent Baseline Function- Gait short community ambulation without device Baseline Function- Work/School working @ [employer] and fixing/up-keep on own home Current Functional Impairments (Reported) Functional Limitations- ADL's assistance with dressing, bathing Functional Limitations- Mobility/Gait modified indep. gait indoors and level outdoors with FWW Functional Limitations- Work/School unable to work Personal Factors Other Personal Factors That May Effect currently with lymphoma ( Therapy/Recovery diagnosed prior to CVA but no treatment due to CVA) as well as a bad heart valve) which lymphoma and CVA also has hindered treatment. Baseline low back pain with R sided sciatic. Obesity, although lost weight recently. PT-OP-C Subjective Start: 02/06/18 07:16 Freq: Status: Active Protocol: Document 03/05/18 12:00 RCC (Rec: 03/05/18 13:29 [facility] [email or web address]) OP-PT Subjective Patient Comments Patient Comments Pt states he is sore today from doing exercises at home. PT-OP-D Balance Start: 02/06/18 07:16 Freq: Status: Active Protocol: Document 02/04/18 12:45 RCC (Rec: 02/06/18 08:08 [facility] [email or web address]) Balance Tests Single Limb Standing Single Limb- Right 5 sec Single Limb- Left unable Tandem Tandem Standing R posterior 15 sec, L posterior 3 sec PT-OP-E Functional Tests Start: 02/06/18 07:16 Freq: Status: Active Protocol: Document 02/04/18 12:45 RCC (Rec: 02/06/18 08:08 [facility] [email or web address]) Functional Tests Timed Up and Go (TUG) Score 24.46 Comments FWW TUG Impairment Rating 100% Impaired (Score 20) PT-OP-G Mobility & Gait Start: 02/06/18 07:16 Freq: Status: Active Protocol: Document 02/11/18 12:45 RCC (Rec: 02/11/18 13:33 RCC [email or web address]) OP Gait Assessment Comments Gait Comments toe drag x4 with 120 ft of ambulation at end of session using quad cane PT-OP-H Neuro Start: 02/06/18 07:16 Freq: Status: Active Protocol: Document 02/04/18 12:45 RCC (Rec: 02/06/18 08:08 RCC [email or web address]) Sensation Evaluation Comments Summary Comments pt reports sensation intact UE and LE Coordination Evaluation Upper Extremity Tests Right Finger to Nose Test Normal Performance Pronation/Supination Test Normal Performance Left Finger to Nose Test Moderate Impairment Pronation/Supination Test Severe Impairment Lower Extremity Tests Right Alternate Heel to Knee; Heel to Toe Test Normal Performance Foot Tapping Test Normal Performance Left Alternate Heel to Knee; Heel to Toe Test Severe Impairment Foot Tapping Test Severe Impairment Deep Tendon Reflex & Clonus Assessment Ankle Clonus Right Clonus Assessment Absent Left Clonus Assessment 1 Beat PT-OP-M Strength Start: 02/06/18 07:16 Freq: Status: Active Protocol: Document 02/04/18 12:45 RCC (Rec: 02/06/18 08:08 RCC [email or web address]) Shoulder Strength Shoulder Manual Muscle Testing Right Flexion 5 Normal Abduction (C5) 5 Normal External Rotation 5 Normal Internal Rotation 5 Normal Left Flexion 3+ Fair+ Abduction (C5) 3+ Fair+ External Rotation 3+ Fair+ Internal Rotation 3 Fair Hip Strength Hip Manual Muscle Testing Right Flexion (L2) 5 Normal External Rotation 4 Good Internal Rotation 4 Good Left Flexion (L2) 3+ Fair+ External Rotation 3 Fair Internal Rotation 3 Fair Knee Strength Knee Manual Muscle Testing Right Flexion (S2) 4 Good Extension (L3) 5 Normal Left Flexion (S2) 3+ Fair+ Extension (L3) 4- Good- Ankle/Foot Strength Ankle and Foot Manual Muscle Testing Right Dorsiflexion (L4) 5 Normal Plantarflexion (S1) 4 Good Inversion 5 Normal Eversion (S1) 4+ Good+ Left Dorsiflexion (L4) 3 Fair Plantarflexion (S1) 2+ Poor+ Inversion 3+ Fair+ Eversion (S1) 3+ Fair+ PT-OP-Q Treatments Start: 02/06/18 07:16 Freq: Status: Active Protocol: Document 03/05/18 12:00 RCC (Rec: 03/05/18 13:29 [facility] [email or web address]) Cardio Equipment Recumbent Stepper (Sci-Fit) Duration (Minutes) 8 Resistance 1 Therapeutic Exercises Standing Exercises TKE Side left Resistance L2 Reps/Minutes 2x15 resisted walking Standing Exercise Name lateral, forward, backward resisted walking Side bilateral Resistance L2 Equipment Used // bars Reps/Minutes 3 laps each Gait Training Gait Activity gait in // bars Description gait with occasional UE support on // bars Level of Assistance SBA Surface firm Treatment Focus ankle DF, knee ROM, step length, heel strike and push off Comments 8 min Neuro Re-Education Treatment Balance Activities tadem stance Surface firm and lead foot on dodge foam Equipment // bars Reps/Duration 3x30 sec each condition Comments UE assist SLS Details single leg stance Surface firm, level Comments left, 3x30 sec with occasional UE assist Other Activities heel-toe forward gait Reps/Duration 4 laps in // bars BAPS Details A/P, lateral, CW/CCW Reps/Duration 5 min Comments L4 PT-OP-T Assessment and Plan Start: 02/06/18 07:16 Freq: Status: Active Protocol: Document 03/05/18 12:00 [facility] (Rec: 03/05/18 13:29 [facility] [email or web address]) Physical Therapy Assessment Assessment Summary Assessment Pt continues to have intermittent toe first at IC with gait using FWW and in // bars, recommend he continue to use his FWW for gait. Pt limited in DF and inversion ROM with BAPS board today using the LLE. Physical Therapy Plan Frequency and Duration Frequency of Treatment 2x/Week Duration of Treatment 12 weeks Plan of Care Start Date 02/04/18 Plan of Care End Date 04/29/18 Next Visit Focus/Plan Next Note Type Treatment Note Next Visit Plan add ankle resisted motions (DF already part of HEP), progress proprioception and balance, gait.
--- NOTE | 2018-03-11 14:30 | PT.OTN ---
Current Diagnoses Hemiplegia, unspecified affecting left nondominant side (03/11/18) Cerebral infarction due to unspecified occlusion or stenosis of right middle cerebral artery (03/11/18) Neurologic neglect syndrome (03/11/18) Other reduced mobility (03/11/18) Physical Therapy Treatment Note PT-OP-A Visit Information Start: 02/06/18 07:16 Freq: Status: Active Protocol: Document 03/11/18 14:30 [facility] (Rec: 03/11/18 15:21 [facility] [email or web address]) Out-Patient Physical Therapy Visit Information Visit Information Visit Type Treatment Note Visit Start Time 13:46 Visit Stop Time 14:30 Total Visit Minutes 44 Visit Number 8 Number of LOZENGE DOUGH MIXER Visits 0 Evaluation Information Evaluation Date 02/04/18 PT-OP-B Current Condition Start: 02/06/18 07:16 Freq: Status: Active Protocol: Document 02/04/18 12:45 RCC (Rec: 02/06/18 08:08 RCC [email or web address]) Current Condition History of Current Condition Onset Date 12/27/17 Current Complaints impaired gait, weakness LUE and LE, poor balance History of Current Condition Pt is a 68 y/o male presenting to outpatient physical therapy with a c/o L sided UE and LE weakness, impaired gait and balance, and general difficulty with mobility and loss of function s/p CVA (R MCA). Pt initially brought to on 12/27/17 with slurred speech, L UE/LE weakness. He was administered tPA at , continued to have recurring symptoms of HTN, slurred speech, and L sided weakness. He was airlifted to [facility] , but transported from helicopter to [facility] for further evaluation and treatment. He spent a couple of weeks of rehab at [facility], and returned home with (see PT notes for rehab in paper chart). Pt is receiving hand therapy at [facility] in [place], he is unsure if he will get UE strengthening and treatment there beyond his hand. His prior level of function is indep. gait without a device. 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 He is not yet driving. He is using a FWW for gait, he does not yet feel safe with the quad cane with ambulation. CVA affected both L UE and LE. He has baseline low back pain with R sided sciatic symptoms ( treated @ this clinic years prior to this as well). Prior Treatments and Tests [facility]PA @ [facility] then airlift and transport to [facility] with rehab. Future Testing and Treatments Planned OT for UE strengthening, coordination, function- recommend referral for this to be performed @ current [facility] ( receiving hand therapy only) or @ [facility] for OT as well as PT. Treatment Goals Patient/Caregiver Goals improve gait, balance, strength, functional independence. Prior Functional Status Baseline Function- ADL's Independent Baseline Function- Mobility Independent Baseline Function- Gait short community ambulation without device Baseline Function- Work/School working @ [employer] and fixing/up-keep on own home Current Functional Impairments (Reported) Functional Limitations- ADL's assistance with dressing, bathing Functional Limitations- Mobility/Gait modified indep. gait indoors and level outdoors with FWW Functional Limitations- Work/School unable to work Personal Factors Other Personal Factors That May Effect currently with lymphoma ( Therapy/Recovery diagnosed prior to CVA but no treatment due to CVA) as well as a bad heart valve) which lymphoma and CVA also has hindered treatment. Baseline low back pain with R sided sciatic. Obesity, although lost weight recently. PT-OP-C Subjective Start: 02/06/18 07:16 Freq: Status: Active Protocol: Document 03/11/18 14:30 RCC (Rec: 03/11/18 15:21 RCC [email or web address]) OP-PT Subjective Patient Comments Patient Comments Pt states he is doing better today, he still is having his foot drag occasionally. PT-OP-D Balance Start: 02/06/18 07:16 Freq: Status: Active Protocol: Document 02/04/18 12:45 RCC (Rec: 02/06/18 08:08 [facility] [email or web address]) Balance Tests Single Limb Standing Single Limb- Right 5 sec Single Limb- Left unable Tandem Tandem Standing R posterior 15 sec, L posterior 3 sec PT-OP-E Functional Tests Start: 02/06/18 07:16 Freq: Status: Active Protocol: Document 02/04/18 12:45 RCC (Rec: 02/06/18 08:08 [facility] [email or web address]) Functional Tests Timed Up and Go (TUG) Score 24.46 Comments FWW TUG Impairment Rating 100% Impaired (Score 20) PT-OP-G Mobility & Gait Start: 02/06/18 07:16 Freq: Status: Active Protocol: Document 02/11/18 12:45 RCC (Rec: 02/11/18 13:33 [facility] [email or web address]) OP Gait Assessment Comments Gait Comments toe drag x4 with 120 ft of ambulation at end of session using quad cane PT-OP-H Neuro Start: 02/06/18 07:16 Freq: Status: Active Protocol: Document 02/04/18 12:45 RCC (Rec: 02/06/18 08:08 [facility] [email or web address]) Sensation Evaluation Comments Summary Comments pt reports sensation intact UE and LE Coordination Evaluation Upper Extremity Tests Right Finger to Nose Test Normal Performance Pronation/Supination Test Normal Performance Left Finger to Nose Test Moderate Impairment Pronation/Supination Test Severe Impairment Lower Extremity Tests Right Alternate Heel to Knee; Heel to Toe Test Normal Performance Foot Tapping Test Normal Performance Left Alternate Heel to Knee; Heel to Toe Test Severe Impairment Foot Tapping Test Severe Impairment Deep Tendon Reflex & Clonus Assessment Ankle Clonus Right Clonus Assessment Absent Left Clonus Assessment 1 Beat PT-OP-M Strength Start: 02/06/18 07:16 Freq: Status: Active Protocol: Document 02/04/18 12:45 RCC (Rec: 02/06/18 08:08 [facility] [email or web address]) Shoulder Strength Shoulder Manual Muscle Testing Right Flexion 5 Normal Abduction (C5) 5 Normal External Rotation 5 Normal Internal Rotation 5 Normal Left Flexion 3+ Fair+ Abduction (C5) 3+ Fair+ External Rotation 3+ Fair+ Internal Rotation 3 Fair Hip Strength Hip Manual Muscle Testing Right Flexion (L2) 5 Normal External Rotation 4 Good Internal Rotation 4 Good Left Flexion (L2) 3+ Fair+ External Rotation 3 Fair Internal Rotation 3 Fair Knee Strength Knee Manual Muscle Testing Right Flexion (S2) 4 Good Extension (L3) 5 Normal Left Flexion (S2) 3+ Fair+ Extension (L3) 4- Good- Ankle/Foot Strength Ankle and Foot Manual Muscle Testing Right Dorsiflexion (L4) 5 Normal Plantarflexion (S1) 4 Good Inversion 5 Normal Eversion (S1) 4+ Good+ Left Dorsiflexion (L4) 3 Fair Plantarflexion (S1) 2+ Poor+ Inversion 3+ Fair+ Eversion (S1) 3+ Fair+ PT-OP-Q Treatments Start: 02/06/18 07:16 Freq: Status: Active Protocol: Document 03/11/18 14:30 RCC (Rec: 03/11/18 15:21 [facility] [email or web address]) Gym Equipment Shuttle Recovery Unilateral Heel Raises Resistance 25 Shuttle Recovery Platform Stable Reps/Time manual assist for foot placement (left) Unilateral Squats Resistance 25 Shuttle Recovery Platform Stable Reps/Time 1x15 Bilateral Squats Resistance 62 Shuttle Recovery Platform Stable Reps/Time 1x15 Therapeutic Exercises Standing Exercises lunges Standing Exercise Name mini lunges in // bars Comments firm and onto dodge foam step up Standing Exercise Name L foot step up and down backward Side left Reps/Minutes 10 reps TKE Side left Resistance L2 Reps/Minutes 2x15 resisted walking Standing Exercise Name lateral, forward, backward resisted walking Side bilateral Resistance L2 Equipment Used // bars Reps/Minutes 3 laps each step over 3 inch griselda Standing Exercise Name foam pads b/t each griselda Side bilateral Equipment Used // bars Comments To facilitate SLS on L; hip flexion and DF on L Neuro Re-Education Treatment Balance Activities tadem stance Surface firm and lead foot on dodge foam Equipment // bars Reps/Duration 3x30 sec each condition Comments UE assist SLS Details single leg stance Surface firm, level Comments left, 3x30 sec with occasional UE assist Other Activities heel-toe forward gait Reps/Duration 4 laps in // bars PT-OP-T Assessment and Plan Start: 02/06/18 07:16 Freq: Status: Active Protocol: Document 03/11/18 14:30 [facility] (Rec: 03/11/18 15:21 [facility] [email or web address]) Physical Therapy Assessment Assessment Summary Assessment Pt requires verbal cuing for hip and knee flexion vs circumduction occasionally over hurdles. Inconsistent L quadriceps activation but improved after TKE. Physical Therapy Plan Frequency and Duration Frequency of Treatment 2x/Week Duration of Treatment 12 weeks Plan of Care Start Date 02/04/18 Plan of Care End Date 04/29/18 Next Visit Focus/Plan Next Note Type Treatment Note Next Visit Plan resisted ankle strengthening, cont. gait and balance
--- NOTE | 2018-03-24 12:45 | PT.OTN ---
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) Other reduced mobility (03/24/18) Physical Therapy Treatment Note PT-OP-A Visit Information Start: 02/06/18 07:16 Freq: Status: Active Protocol: Document 03/24/18 12:45 RCC (Rec: 03/24/18 13:37 RCC [email or web address]) Out-Patient Physical Therapy Visit Information Visit Information Visit Type Treatment Note Visit Start Time 12:00 Visit Stop Time 12:45 Total Visit Minutes 45 Visit Number 9 Number of LOCKSTITCH SHOULDER JOINER Visits 0 Evaluation Information Evaluation Date 02/04/18 Precautions Precautions L toe drag occasionally with gait, fall risk PT-OP-B Current Condition Start: 02/06/18 07:16 Freq: Status: Active Protocol: Document 02/04/18 12:45 RCC (Rec: 02/06/18 08:08 [facility] [email or web address]) Current Condition History of Current Condition Onset Date 12/27/17 Current Complaints impaired gait, weakness LUE and LE, poor balance History of Current Condition Pt is a 68 y/o male presenting to outpatient physical therapy with a c/o L sided UE and LE weakness, impaired gait and balance, and general difficulty with mobility and loss of function s/p CVA (R MCA). Pt initially brought to on 12/27/17 with slurred speech, L UE/LE weakness. He was administered tPA at , continued to have recurring symptoms of HTN, slurred speech, and L sided weakness. He was airlifted to [facility] , but transported from helicopter to [facility] for further evaluation and treatment. He spent a couple of weeks of rehab at [facility], and returned home with (see PT notes for rehab in paper chart). Pt is receiving hand therapy at [facility] in [place], he is unsure if he will get UE strengthening and treatment there beyond his hand. His prior level of function is indep. gait without a device. 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 He is not yet driving. He is using a FWW for gait, he does not yet feel safe with the quad cane with ambulation. CVA affected both L UE and LE. He has baseline low back pain with R sided sciatic symptoms ( treated @ this clinic years prior to this as well). Prior Treatments and Tests tPA @ [facility] then airlift and transport to [facility] with rehab. Future Testing and Treatments Planned OT for UE strengthening, coordination, function- recommend referral for this to be performed @ [facility] ( receiving hand therapy only) or @ [facility] for OT as well as PT. Treatment Goals Patient/Caregiver Goals improve gait, balance, strength, functional independence. Prior Functional Status Baseline Function- ADL's Independent Baseline Function- Mobility Independent Baseline Function- Gait short community ambulation without device Baseline Function- Work/School working @ [employer] and fixing/up-keep on own home Current Functional Impairments (Reported) Functional Limitations- ADL's assistance with dressing, bathing Functional Limitations- Mobility/Gait modified indep. gait indoors and level outdoors with FWW Functional Limitations- Work/School unable to work Personal Factors Other Personal Factors That May Effect currently with lymphoma ( Therapy/Recovery diagnosed prior to CVA but no treatment due to CVA) as well as a bad heart valve) which lymphoma and CVA also has hindered treatment. Baseline low back pain with R sided sciatic. Obesity, although lost weight recently. PT-OP-C Subjective Start: 02/06/18 07:16 Freq: Status: Active Protocol: Document 03/24/18 12:45 RCC (Rec: 03/24/18 13:37 RCC [email or web address]) OP-PT Subjective Patient Comments Patient Comments Pt states that he is proceeding with possible surgery for a cardiac issue, continues to see doctors for consultations and testing but may interrupt PT sessions. PT-OP-D Balance Start: 02/06/18 07:16 Freq: Status: Active Protocol: Document 02/04/18 12:45 RCC (Rec: 02/06/18 08:08 RCC [email or web address]) Balance Tests Single Limb Standing Single Limb- Right 5 sec Single Limb- Left unable Tandem Tandem Standing R posterior 15 sec, L posterior 3 sec PT-OP-E Functional Tests Start: 02/06/18 07:16 Freq: Status: Active Protocol: Document 02/04/18 12:45 RCC (Rec: 02/06/18 08:08 RCC [email or web address]) Functional Tests Timed Up and Go (TUG) Score 24.46 Comments FWW TUG Impairment Rating 100% Impaired (Score 20) PT-OP-G Mobility & Gait Start: 02/06/18 07:16 Freq: Status: Active Protocol: Document 02/11/18 12:45 RCC (Rec: 02/11/18 13:33 RCC [email or web address]) OP Gait Assessment Comments Gait Comments toe drag x4 with 120 ft of ambulation at end of session using quad cane PT-OP-H Neuro Start: 02/06/18 07:16 Freq: Status: Active Protocol: Document 02/04/18 12:45 RCC (Rec: 02/06/18 08:08 [facility] [email or web address]) Sensation Evaluation Comments Summary Comments pt reports sensation intact UE and LE Coordination Evaluation Upper Extremity Tests Right Finger to Nose Test Normal Performance Pronation/Supination Test Normal Performance Left Finger to Nose Test Moderate Impairment Pronation/Supination Test Severe Impairment Lower Extremity Tests Right Alternate Heel to Knee; Heel to Toe Test Normal Performance Foot Tapping Test Normal Performance Left Alternate Heel to Knee; Heel to Toe Test Severe Impairment Foot Tapping Test Severe Impairment Deep Tendon Reflex & Clonus Assessment Ankle Clonus Right Clonus Assessment Absent Left Clonus Assessment 1 Beat PT-OP-M Strength Start: 02/06/18 07:16 Freq: Status: Active Protocol: Document 02/04/18 12:45 RCC (Rec: 02/06/18 08:08 RCC [email or web address]) Shoulder Strength Shoulder Manual Muscle Testing Right Flexion 5 Normal Abduction (C5) 5 Normal External Rotation 5 Normal Internal Rotation 5 Normal Left Flexion 3+ Fair+ Abduction (C5) 3+ Fair+ External Rotation 3+ Fair+ Internal Rotation 3 Fair Hip Strength Hip Manual Muscle Testing Right Flexion (L2) 5 Normal External Rotation 4 Good Internal Rotation 4 Good Left Flexion (L2) 3+ Fair+ External Rotation 3 Fair Internal Rotation 3 Fair Knee Strength Knee Manual Muscle Testing Right Flexion (S2) 4 Good Extension (L3) 5 Normal Left Flexion (S2) 3+ Fair+ Extension (L3) 4- Good- Ankle/Foot Strength Ankle and Foot Manual Muscle Testing Right Dorsiflexion (L4) 5 Normal Plantarflexion (S1) 4 Good Inversion 5 Normal Eversion (S1) 4+ Good+ Left Dorsiflexion (L4) 3 Fair Plantarflexion (S1) 2+ Poor+ Inversion 3+ Fair+ Eversion (S1) 3+ Fair+ PT-OP-Q Treatments Start: 02/06/18 07:16 Freq: Status: Active Protocol: Document 03/24/18 12:45 RCC (Rec: 03/24/18 13:37 RCC [email or web address]) Gym Equipment Cable Column (Body Solid) Leg Extension Resistance 10 lbs Reps/Time x10 L Leg Curl Resistance 15 lbs Reps/Time x10 (B and U) Shuttle Recovery Unilateral Squats Resistance 25 Shuttle Recovery Platform Stable Reps/Time 1x15 Bilateral Squats Resistance 62 Shuttle Recovery Platform Stable Reps/Time 1x20 Therapeutic Exercises Supine Exercises SLR Supine Exercise Name hip flexion Side bilateral Reps/Minutes x10 each Sitting Exercises ankle DF Sitting Exercise Name ankle DF Side left Resistance L1 band Reps/Minutes x30 reps Standing Exercises hip extension Side left Resistance L1 Reps/Minutes x10 Comments VC for posture lunges Standing Exercise Name mini lunges in // bars Comments firm TKE Side left Resistance L2 Reps/Minutes 2x15 resisted walking Standing Exercise Name lateral walking Side bilateral Resistance L2 Equipment Used // bars Reps/Minutes 3 laps PT-OP-T Assessment and Plan Start: 02/06/18 07:16 Freq: Status: Active Protocol: Document 03/24/18 12:45 RCC (Rec: 03/24/18 13:37 [facility] [email or web address]) Physical Therapy Assessment Assessment Summary Assessment Pt requires tactile cuing for posture and quad activation with standing exercises, and continues to fatigue quickly with LLE strengthening activities. Physical Therapy Plan Frequency and Duration Frequency of Treatment 2x/Week Duration of Treatment 12 weeks Plan of Care Start Date 02/04/18 Plan of Care End Date 04/29/18 Next Visit Focus/Plan Next Note Type Treatment Note Next Visit Plan progress standing balance, ankle DF strength, gait.
--- NOTE | 2018-03-31 12:05 | PT.OTN ---
Current Diagnoses Hemiplegia, unspecified affecting left nondominant side (03/31/18) Cerebral infarction due to unspecified occlusion or stenosis of right middle cerebral artery (03/31/18) Neurologic neglect syndrome (03/31/18) Other reduced mobility (03/31/18) Physical Therapy Treatment Note PT-OP-A Visit Information Start: 02/06/18 07:16 Freq: Status: Active Protocol: Document 03/31/18 12:05 RCC (Rec: 04/01/18 09:45 [facility] [email or web address]) Out-Patient Physical Therapy Visit Information Visit Information Visit Type Treatment Note Visit Start Time 12:05 Visit Stop Time 12:45 Total Visit Minutes 40 Visit Number 10 Number of WINDOW GLASS INSTALLER Visits 0 Evaluation Information Evaluation Date 02/04/18 Precautions Precautions L toe drag occasionally with gait, fall risk PT-OP-B Current Condition Start: 02/06/18 07:16 Freq: Status: Active Protocol: Document 02/04/18 12:45 RCC (Rec: 02/06/18 08:08 [facility] [email or web address]) Current Condition History of Current Condition Onset Date 12/27/17 Current Complaints impaired gait, weakness LUE and LE, poor balance History of Current Condition Pt is a 68 y/o male presenting to outpatient physical therapy with a c/o L sided UE and LE weakness, impaired gait and balance, and general difficulty with mobility and loss of function s/p CVA (R MCA). Pt initially brought to on 12/27/17 with slurred speech, L UE/LE weakness. He was administered tPA at , continued to have recurring symptoms of HTN, slurred speech, and L sided weakness. He was airlifted to [facility] , but transported from helicopter to [place] for further evaluation and treatment. He spent a couple of weeks of rehab at [facility], and returned home with (see PT notes for rehab in paper chart). Pt is receiving hand therapy at [facility] in [place], he is unsure if he will get UE strengthening and treatment there beyond his hand. His prior level of function is indep. gait without a device. 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 He is not yet driving. He is using a FWW for gait, he does not yet feel safe with the quad cane with ambulation. CVA affected both L UE and LE. He has baseline low back pain with R sided sciatic symptoms ( treated @ this clinic years prior to this as well). Prior Treatments and Tests [facility]PA [facility] then airlift and transport to [facility] with rehab. Future Testing and Treatments Planned OT for UE strengthening, coordination, function- recommend referral for this to be performed @ current [facility] ( receiving hand therapy only) or @ [facility] for OT as well as PT. Treatment Goals Patient/Caregiver Goals improve gait, balance, strength, functional independence. Prior Functional Status Baseline Function- ADL's Independent Baseline Function- Mobility Independent Baseline Function- Gait short community ambulation without device Baseline Function- Work/School working @ [employer] and fixing/up-keep on own home Current Functional Impairments (Reported) Functional Limitations- ADL's assistance with dressing, bathing Functional Limitations- Mobility/Gait modified indep. gait indoors and level outdoors with FWW Functional Limitations- Work/School unable to work Personal Factors Other Personal Factors That May Effect currently with lymphoma ( Therapy/Recovery diagnosed prior to CVA but no treatment due to CVA) as well as a bad heart valve) which lymphoma and CVA also has hindered treatment. Baseline low back pain with R sided sciatic. Obesity, although lost weight recently. PT-OP-C Subjective Start: 02/06/18 07:16 Freq: Status: Active Protocol: Document 03/31/18 12:05 RCC (Rec: 04/01/18 09:45 [facility] [email or web address]) OP-PT Subjective Patient Comments Patient Comments Pt reports he is walking every day, but unable to perform this without an assistive device or his by his side . PT-OP-D Balance Start: 02/06/18 07:16 Freq: Status: Active Protocol: Document 02/04/18 12:45 RCC (Rec: 02/06/18 08:08 RCC [email or web address]) Balance Tests Single Limb Standing Single Limb- Right 5 sec Single Limb- Left unable Tandem Tandem Standing R posterior 15 sec, L posterior 3 sec PT-OP-E Functional Tests Start: 02/06/18 07:16 Freq: Status: Active Protocol: Document 03/31/18 12:05 RCC (Rec: 04/01/18 09:45 [facility] [email or web address]) Functional Tests Timed Up and Go (TUG) Score 22 (3 trial average) Comments Quad Cane TUG Impairment Rating 100% Impaired (Score 20) PT-OP-G Mobility & Gait Start: 02/06/18 07:16 Freq: Status: Active Protocol: Document 02/11/18 12:45 RCC (Rec: 02/11/18 13:33 [facility] [email or web address]) OP Gait Assessment Comments Gait Comments toe drag x4 with 120 ft of ambulation at end of session using quad cane PT-OP-H Neuro Start: 02/06/18 07:16 Freq: Status: Active Protocol: Document 02/04/18 12:45 RCC (Rec: 02/06/18 08:08 [facility] [email or web address]) Sensation Evaluation Comments Summary Comments pt reports sensation intact UE and LE Coordination Evaluation Upper Extremity Tests Right Finger to Nose Test Normal Performance Pronation/Supination Test Normal Performance Left Finger to Nose Test Moderate Impairment Pronation/Supination Test Severe Impairment Lower Extremity Tests Right Alternate Heel to Knee; Heel to Toe Test Normal Performance Foot Tapping Test Normal Performance Left Alternate Heel to Knee; Heel to Toe Test Severe Impairment Foot Tapping Test Severe Impairment Deep Tendon Reflex & Clonus Assessment Ankle Clonus Right Clonus Assessment Absent Left Clonus Assessment 1 Beat PT-OP-M Strength Start: 02/06/18 07:16 Freq: Status: Active Protocol: Document 03/31/18 12:05 RCC (Rec: 04/01/18 09:45 [facility] [email or web address]) Hip Strength Hip Manual Muscle Testing Left Flexion (L2) 4- Good- External Rotation 4- Good- Internal Rotation 3+ Fair+ Knee Strength Knee Manual Muscle Testing Left Flexion (S2) 4- Good- Extension (L3) 4- Good- Ankle/Foot Strength Ankle and Foot Manual Muscle Testing Left Dorsiflexion (L4) 3+ Fair+ Plantarflexion (S1) 2+ Poor+ Inversion 4- Good- Eversion (S1) 3+ Fair+ PT-OP-Q Treatments Start: 02/06/18 07:16 Freq: Status: Active Protocol: Document 03/31/18 12:05 RCC (Rec: 04/01/18 09:45 [facility] [email or web address]) Gym Equipment Cable Column (Body Solid) Leg Extension Resistance 10 lbs Reps/Time x10 L Leg Curl Resistance 20 lbs Reps/Time x10 (B and U) Shuttle Recovery Unilateral Squats Resistance 25 Shuttle Recovery Platform Stable Reps/Time 1x15 Bilateral Squats Resistance 62 Shuttle Recovery Platform Stable Reps/Time 1x20 Therapeutic Exercises Supine Exercises piriformis stretch Side bilateral Reps/Minutes 2x30 sec Comments manual SKC stretch Side bilateral Reps/Minutes 2x30 sec Comments manual hip adductors Supine Exercise Name stretch Side bilateral Reps/Minutes 2x30 sec Comments manual HS stretch Side bilateral Reps/Minutes 2x30 sec Comments manual Standing Exercises TKE Side left Resistance L2 Reps/Minutes 2x15 step over 3 inch griselda Standing Exercise Name firm ground- 5 lb AW each LE ( forward and lateral) Side bilateral Equipment Used // bars Comments To facilitate SLS on L; hip flexion and DF on L Therapeutic Activity Therapeutic Activity TUG Name Timed Up and Go testing- set up/description, demonstration- 3 trials Reps/Minutes 6 min Manual Therapy Treatment Other Other Manual Treatments LE MMT PT-OP-T Assessment and Plan Start: 02/06/18 07:16 Freq: Status: Active Protocol: Document 03/31/18 12:05 RCC (Rec: 04/01/18 09:45 [facility] [email or web address]) Physical Therapy Assessment Goals Coordination Impairment impaired L UE and LE coordination Short Term Goal (STG) L LE heel to opposite mahajan and alternating heel/toe tapping to moderate impairment or better. STG Duration 6 weeks Strip Winder Goal (LTG) L LE heel to opposite mahajan and alternating heel/toe tapping to minimal impairment or better. LTG Duration 12 weeks Balance Impairment unable to perform SL balance, tandem standing impaired Short Term Goal (STG) tandem standing to 10 sec each situation, SL balance 2 sec on L foot to demonstrate decreased fall risk. STG Duration 6 weeks Assisted Goal (LTG) tandem standing to 15 sec each situation, SL balance 5 sec on L foot to demonstrate decreased fall risk. LTG Duration 12 weeks weakness Impairment L lower extremity weakness Short Term Goal (STG) LLE manual muscle testing to at least 4-/5. STG Duration 6 weeks Strip Winder Goal (LTG) LLE manual muscle testing to at least 4/5 grossly to improve functional mobility and tolerance to stepping up/ down curbs and stairs with good LE control. Gait Impairment short outdoor ambulation level ground with FWW, decreased L foot clearance Short Term Goal (STG) Pt will ambulate 50 ft outdoors on level ground with quad cane and 100% L foot clearance, modified independent. STG Duration 6 weeks Assisted Goal (LTG) Pt will ambulate 300 ft outdoors on level ground with quad cane and 100% L foot clearance, modified independent. LTG Duration 12 weeks Timed Up and Go Impairment 24.46 seconds Short Term Goal (STG) 19 sec or less with Timed Up and Go test with least restrictive assistive device to improve gait speed and decrease fall risk. STG Duration 6 weeks Strip Winder Goal (LTG) 13 sec or less with Timed Up and Go test with least restrictive assistive deviceto improve gait speed and decrease fall risk. LTG Duration 12 weeks Progress Towards Goals Progress Towards Goals Slow Progress due to Activity Tolerance Slow Progress due to Medical Issues Progress Comments Pt with improved ankle DF and inversion strength on the L, as well as hip flexion and IR, knee flexion. Pt is walking daily, but still with occasional foot drag. TUG time decreased and able to perform safely with QC vs. FWW (FWW on initial evaluation). Assessment Summary Assessment Pt is making progress with gait speed and some progression with LE strength, as well as less frequent toe dragging episodes on the LLE. Pt is walking daily with his , but still well below his prior level of function. Pt limited with progress to just one visit per week due to multiple other medical complexities including lymphoma and evaluation and treatment for a heart valve issue. He is receiving hand therapy at another clinic locally. Pt would benefit from continued skilled physical therapy to progress his balance, gait, strength, and improvements with functional independence. Physical Therapy Plan Frequency and Duration Frequency of Treatment 2x/Week Duration of Treatment 12 weeks Plan of Care Start Date 02/04/18 Plan of Care End Date 04/29/18 Next Visit Focus/Plan Next Note Type Treatment Note Next Visit Plan progress LE strength, gait and balance.
--- NOTE | 2018-04-08 16:50 | PT.OTN ---
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) Other reduced mobility (04/08/18) Physical Therapy Treatment Note PT-OP-A Visit Information Start: 02/06/18 07:16 Freq: Status: Active Protocol: Document 04/08/18 16:50 RCC (Rec: 04/08/18 18:02 RCC [email or web address]) Out-Patient Physical Therapy Visit Information Visit Information Visit Type Treatment Note Visit Start Time 16:50 Visit Stop Time 17:35 Total Visit Minutes 45 Visit Number 11 Number of SOLDERING MACHINE OPERATOR Visits 0 Evaluation Information Evaluation Date 02/04/18 PT-OP-B Current Condition Start: 02/06/18 07:16 Freq: Status: Active Protocol: Document 02/04/18 12:45 RCC (Rec: 02/06/18 08:08 RCC [email or web address]) Current Condition History of Current Condition Onset Date 12/27/17 Current Complaints impaired gait, weakness LUE and LE, poor balance History of Current Condition Pt is a 68 y/o male presenting to outpatient physical therapy with a c/o L sided UE and LE weakness, impaired gait and balance, and general difficulty with mobility and loss of function s/p CVA (R MCA). Pt initially brought to on 12/27/17 with slurred speech, L UE/LE weakness. He was administered tPA at , continued to have recurring symptoms of HTN, slurred speech, and L sided weakness. He was airlifted to [facility] , but transported from helicopter to [facility] for further evaluation and treatment. He spent a couple of weeks of rehab at [facility], and returned home with (see PT notes for rehab in paper chart). Pt is receiving hand therapy at [facility] in [place], he is unsure if he will get UE strengthening and treatment there beyond his hand. His prior level of function is indep. gait without a device. 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 He is not yet driving. He is using a FWW for gait, he does not yet feel safe with the quad cane with ambulation. CVA affected both L UE and LE. He has baseline low back pain with R sided sciatic symptoms ( treated @ this clinic years prior to this as well). Prior Treatments and Tests tPA @ [facility] then airlift and transport to [facility] with rehab. Future Testing and Treatments Planned OT for UE strengthening, coordination, function- recommend referral for this to be performed @ current [facility] ( receiving hand therapy only) or @ [facility] for OT as well as PT. Treatment Goals Patient/Caregiver Goals improve gait, balance, strength, functional independence. Prior Functional Status Baseline Function- ADL's Independent Baseline Function- Mobility Independent Baseline Function- Gait short community ambulation without device Baseline Function- Work/School working @ [employer] and fixing/up-keep on own home Current Functional Impairments (Reported) Functional Limitations- ADL's assistance with dressing, bathing Functional Limitations- Mobility/Gait modified indep. gait indoors and level outdoors with FWW Functional Limitations- Work/School unable to work Personal Factors Other Personal Factors That May Effect currently with lymphoma ( Therapy/Recovery diagnosed prior to CVA but no treatment due to CVA) as well as a bad heart valve) which lymphoma and CVA also has hindered treatment. Baseline low back pain with R sided sciatic. Obesity, although lost weight recently. PT-OP-C Subjective Start: 02/06/18 07:16 Freq: Status: Active Protocol: Document 04/08/18 16:50 RCC (Rec: 04/08/18 18:02 [facility] [email or web address]) OP-PT Subjective Patient Comments Patient Comments Pt states he is having his heart valve replaced on Apr 27. He is doing his HEP. PT-OP-D Balance Start: 02/06/18 07:16 Freq: Status: Active Protocol: Document 02/04/18 12:45 RCC (Rec: 02/06/18 08:08 [facility] [email or web address]) Balance Tests Single Limb Standing Single Limb- Right 5 sec Single Limb- Left unable Tandem Tandem Standing R posterior 15 sec, L posterior 3 sec PT-OP-E Functional Tests Start: 02/06/18 07:16 Freq: Status: Active Protocol: Document 03/31/18 12:05 RCC (Rec: 04/01/18 09:45 [facility] [email or web address]) Functional Tests Timed Up and Go (TUG) Score 22 (3 trial average) Comments Quad Cane TUG Impairment Rating 100% Impaired (Score 20) PT-OP-G Mobility & Gait Start: 02/06/18 07:16 Freq: Status: Active Protocol: Document 02/11/18 12:45 RCC (Rec: 02/11/18 13:33 RCC [email or web address]) OP Gait Assessment Comments Gait Comments toe drag x4 with 120 ft of ambulation at end of session using quad cane PT-OP-H Neuro Start: 02/06/18 07:16 Freq: Status: Active Protocol: Document 02/04/18 12:45 RCC (Rec: 02/06/18 08:08 [facility] [email or web address]) Sensation Evaluation Comments Summary Comments pt reports sensation intact UE and LE Coordination Evaluation Upper Extremity Tests Right Finger to Nose Test Normal Performance Pronation/Supination Test Normal Performance Left Finger to Nose Test Moderate Impairment Pronation/Supination Test Severe Impairment Lower Extremity Tests Right Alternate Heel to Knee; Heel to Toe Test Normal Performance Foot Tapping Test Normal Performance Left Alternate Heel to Knee; Heel to Toe Test Severe Impairment Foot Tapping Test Severe Impairment Deep Tendon Reflex & Clonus Assessment Ankle Clonus Right Clonus Assessment Absent Left Clonus Assessment 1 Beat PT-OP-M Strength Start: 02/06/18 07:16 Freq: Status: Active Protocol: Document 03/31/18 12:05 RCC (Rec: 04/01/18 09:45 [facility] [email or web address]) Hip Strength Hip Manual Muscle Testing Left Flexion (L2) 4- Good- External Rotation 4- Good- Internal Rotation 3+ Fair+ Knee Strength Knee Manual Muscle Testing Left Flexion (S2) 4- Good- Extension (L3) 4- Good- Ankle/Foot Strength Ankle and Foot Manual Muscle Testing Left Dorsiflexion (L4) 3+ Fair+ Plantarflexion (S1) 2+ Poor+ Inversion 4- Good- Eversion (S1) 3+ Fair+ PT-OP-Q Treatments Start: 02/06/18 07:16 Freq: Status: Active Protocol: Document 04/08/18 16:50 RCC (Rec: 04/08/18 18:02 RCC [email or web address]) Gym Equipment Cable Column (Body Solid) Leg Extension Resistance 10 lbs L, 20 lbs B Reps/Time x10 each Leg Curl Resistance 20 lbs L, 30 lbs B Reps/Time x10 each Shuttle Recovery Unilateral Squats Resistance 25 Shuttle Recovery Platform Stable Reps/Time 1x15 Bilateral Squats Resistance 62 Shuttle Recovery Platform Stable Reps/Time 1x20 Shuttle Balance 1 Details Red Reps/Duration 8 min Comments A/P- DL EO and semi-tandem, lateral WBOS and balance Therapeutic Exercises Supine Exercises hip add Supine Exercise Name hip adduction Side left Reps/Minutes 10 Comments L hip fall out with ball squeeze SLR Supine Exercise Name hip flexion Side bilateral Reps/Minutes x10 each Standing Exercises hip extension Side left Resistance no resistance Reps/Minutes x10 Comments VC for posture TKE Side left Resistance L2 Reps/Minutes 2x15 Neuro Re-Education Treatment Balance Activities SLS Details single leg stance Surface firm Comments left, 2x30 sec with occasional UE assist PT-OP-T Assessment and Plan Start: 02/06/18 07:16 Freq: Status: Active Protocol: Document 04/08/18 16:50 RCC (Rec: 04/08/18 18:02 [facility] [email or web address]) Physical Therapy Assessment Assessment Summary Assessment Pt with improved quad contraction with TKE today, requires tactile cuing occasionally. Pt had an episode of loud crepitus of the L knee with SL balance, no pain but did cause L knee buckling. Physical Therapy Plan Frequency and Duration Frequency of Treatment 2x/Week Duration of Treatment 12 weeks Plan of Care Start Date 02/04/18 Plan of Care End Date 04/29/18 Next Visit Focus/Plan Next Note Type Treatment Note Next Visit Plan progress LE strength, gait and balance.
--- NOTE | 2018-04-22 13:53 | PT.OTN ---
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) Other reduced mobility (04/22/18) Physical Therapy Treatment Note PT-OP-A Visit Information Start: 02/06/18 07:16 Freq: Status: Active Protocol: Document 04/22/18 13:53 RCC (Rec: 04/23/18 13:25 RCC [email or web address]) Out-Patient Physical Therapy Visit Information Visit Information Visit Type Treatment Note Visit Start Time 13:53 Visit Stop Time 14:31 Total Visit Minutes 38 Visit Number 12 Number of OSTEOPATHIC RESIDENT Visits 0 Evaluation Information Evaluation Date 02/04/18 Precautions Precautions L toe drag occasionally with gait, fall risk PT-OP-B Current Condition Start: 02/06/18 07:16 Freq: Status: Active Protocol: Document 02/04/18 12:45 RCC (Rec: 02/06/18 08:08 RCC [email or web address]) Current Condition History of Current Condition Onset Date 12/27/17 Current Complaints impaired gait, weakness LUE and LE, poor balance History of Current Condition Pt is a 68 y/o male presenting to outpatient physical therapy with a c/o L sided UE and LE weakness, impaired gait and balance, and general difficulty with mobility and loss of function s/p CVA (R MCA). Pt initially brought to on 12/27/17 with slurred speech, L UE/LE weakness. He was administered tPA at , continued to have recurring symptoms of HTN, slurred speech, and L sided weakness. He was airlifted to [facility] , but transported from helicopter to [facility] for further evaluation and treatment. He spent a couple of weeks of rehab at [facility], and returned home with (see PT notes for rehab in paper chart). Pt is receiving hand therapy at [facility] in [place], he is unsure if he will get UE strengthening and treatment there beyond his hand. His prior level of function is indep. gait without a device. 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 He is not yet driving. He is using a FWW for gait, he does not yet feel safe with the quad cane with ambulation. CVA affected both L UE and LE. He has baseline low back pain with R sided sciatic symptoms ( treated @ this clinic years prior to this as well). Prior Treatments and Tests tPA @ [facility] then airlift and transport to [facility] with rehab. Future Testing and Treatments Planned OT for UE strengthening, coordination, function- recommend referral for this to be performed @ current [facility] ( receiving hand therapy only) or @ [facility] for OT as well as PT. Treatment Goals Patient/Caregiver Goals improve gait, balance, strength, functional independence. Prior Functional Status Baseline Function- ADL's Independent Baseline Function- Mobility Independent Baseline Function- Gait short community ambulation without device Baseline Function- Work/School working @ [employer] and fixing/up-keep on own home Current Functional Impairments (Reported) Functional Limitations- ADL's assistance with dressing, bathing Functional Limitations- Mobility/Gait modified indep. gait indoors and level outdoors with FWW Functional Limitations- Work/School unable to work Personal Factors Other Personal Factors That May Effect currently with lymphoma ( Therapy/Recovery diagnosed prior to CVA but no treatment due to CVA) as well as a bad heart valve) which lymphoma and CVA also has hindered treatment. Baseline low back pain with R sided sciatic. Obesity, although lost weight recently. PT-OP-C Subjective Start: 02/06/18 07:16 Freq: Status: Active Protocol: Document 04/22/18 13:53 RCC (Rec: 04/23/18 13:25 RCC [email or web address]) OP-PT Subjective Patient Comments Patient Comments Pt reports his had surgery, so he has not been stretching as much because she cannot help. He does notice that his L foot is clearing the ground better with ambulation. PT-OP-D Balance Start: 02/06/18 07:16 Freq: Status: Active Protocol: Document 02/04/18 12:45 RCC (Rec: 02/06/18 08:08 RCC [email or web address]) Balance Tests Single Limb Standing Single Limb- Right 5 sec Single Limb- Left unable Tandem Tandem Standing R posterior 15 sec, L posterior 3 sec PT-OP-E Functional Tests Start: 02/06/18 07:16 Freq: Status: Active Protocol: Document 03/31/18 12:05 RCC (Rec: 04/01/18 09:45 RCC [email or web address]) Functional Tests Timed Up and Go (TUG) Score 22 (3 trial average) Comments Quad Cane TUG Impairment Rating 100% Impaired (Score 20) PT-OP-G Mobility & Gait Start: 02/06/18 07:16 Freq: Status: Active Protocol: Document 02/11/18 12:45 RCC (Rec: 02/11/18 13:33 RCC [email or web address]) OP Gait Assessment Comments Gait Comments toe drag x4 with 120 ft of ambulation at end of session using quad cane PT-OP-H Neuro Start: 02/06/18 07:16 Freq: Status: Active Protocol: Document 02/04/18 12:45 RCC (Rec: 02/06/18 08:08 RCC [email or web address]) Sensation Evaluation Comments Summary Comments pt reports sensation intact UE and LE Coordination Evaluation Upper Extremity Tests Right Finger to Nose Test Normal Performance Pronation/Supination Test Normal Performance Left Finger to Nose Test Moderate Impairment Pronation/Supination Test Severe Impairment Lower Extremity Tests Right Alternate Heel to Knee; Heel to Toe Test Normal Performance Foot Tapping Test Normal Performance Left Alternate Heel to Knee; Heel to Toe Test Severe Impairment Foot Tapping Test Severe Impairment Deep Tendon Reflex & Clonus Assessment Ankle Clonus Right Clonus Assessment Absent Left Clonus Assessment 1 Beat PT-OP-M Strength Start: 02/06/18 07:16 Freq: Status: Active Protocol: Document 03/31/18 12:05 RCC (Rec: 04/01/18 09:45 [facility] [email or web address]) Hip Strength Hip Manual Muscle Testing Left Flexion (L2) 4- Good- External Rotation 4- Good- Internal Rotation 3+ Fair+ Knee Strength Knee Manual Muscle Testing Left Flexion (S2) 4- Good- Extension (L3) 4- Good- Ankle/Foot Strength Ankle and Foot Manual Muscle Testing Left Dorsiflexion (L4) 3+ Fair+ Plantarflexion (S1) 2+ Poor+ Inversion 4- Good- Eversion (S1) 3+ Fair+ PT-OP-Q Treatments Start: 02/06/18 07:16 Freq: Status: Active Protocol: Document 04/22/18 13:53 RCC (Rec: 04/23/18 13:25 RCC [email or web address]) Cardio Equipment Bicycle (Upright) Duration (Minutes) 8 Resistance 4-8 Seat Position 6 Other 1.0 mi. Gym Equipment Shuttle Recovery Unilateral Squats Resistance 37 Shuttle Recovery Platform Stable Reps/Time 1x15 Bilateral Squats Resistance 62 Shuttle Recovery Platform Stable Reps/Time 1x20 Shuttle Balance 1 Details Red Reps/Duration 12 min Comments A/P- DL EO and semi-tandem, lateral WBOS and balance Therapeutic Exercises Supine Exercises HS stretch Side left Reps/Minutes 2x30 sec Comments manual Sitting Exercises ankle DF Sitting Exercise Name ankle DF Side left Resistance L1 band Reps/Minutes x30 reps Standing Exercises step down (stairs) Standing Exercise Name 4 step downs Side bilateral Reps/Minutes x6 each LE PT-OP-T Assessment and Plan Start: 02/06/18 07:16 Freq: Status: Active Protocol: Document 04/22/18 13:53 RCC (Rec: 04/23/18 13:25 RCC [email or web address]) Physical Therapy Assessment Assessment Summary Assessment Pt with (+) crepitus L knee with step down on 4 steps, and impaired knee alignment/ stability when attempting with neutral foot and LE. Pt tolerated upright bike well without c/o fatigue. Physical Therapy Plan Frequency and Duration Frequency of Treatment 2x/Week Duration of Treatment 12 weeks Plan of Care Start Date 02/04/18 Plan of Care End Date 04/29/18 Next Visit Focus/Plan Next Note Type Progress Note Next Visit Plan re-assess obj. measures
--- NOTE | 2018-08-14 13:18 | PT.OPDS ---
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) Other reduced mobility (04/22/18) Provider Visit Care Team Role Provider Type Layton Francis MD Attending Provider Physician Primary Care Provider Specialty: Internal Medicine Address: [address] [place] [address], [facility] Email: Visit Number Visit Number 12 Discharge Summary PT-OP-B Current Condition Start: 02/06/18 07:16 Freq: Status: Active Protocol: Document 02/04/18 12:45 RCC (Rec: 02/06/18 08:08 RCC [id number]) Current Condition History of Current Condition Onset Date 12/27/17 Current Complaints impaired gait, weakness LUE and LE, poor balance History of Current Condition Pt is a 68 y/o male presenting to outpatient physical therapy with a c/o L sided UE and LE weakness, impaired gait and balance, and general difficulty with mobility and loss of function s/p CVA (R MCA). Pt initially brought to on 12/27/17 with slurred speech, L UE/LE weakness. He was administered tPA at , continued to have recurring symptoms of HTN, slurred speech, and L sided weakness. He was airlifted to [facility] , but transported from helicopter to [facility] for further evaluation and treatment. He spent a couple of weeks of rehab at [facility], and returned home with (see PT notes for rehab in paper chart). Pt is receiving hand therapy at [facility] in [place], he is unsure if he will get UE strengthening and treatment there beyond his hand. His prior level of function is indep. gait without a device. 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 He is not yet driving. He is using a FWW for gait, he does not yet feel safe with the quad cane with ambulation. CVA affected both L UE and LE. He has baseline low back pain with R sided sciatic symptoms ( treated @ this clinic years prior to this as well). Prior Treatments and Tests tPA @ then airlift and transport to [facility] with rehab. Future Testing and Treatments Planned OT for UE strengthening, coordination, function- recommend referral for this to be performed @ current [facility] ( receiving hand therapy only) or @ [facility] for OT as well as PT. Treatment Goals Patient/Caregiver Goals improve gait, balance, strength, functional independence. Prior Functional Status Baseline Function- ADL's Independent Baseline Function- Mobility Independent Baseline Function- Gait short community ambulation without device Baseline Function- Work/School working @ [employer] and fixing/up-keep on own home Current Functional Impairments (Reported) Functional Limitations- ADL's assistance with dressing, bathing Functional Limitations- Mobility/Gait modified indep. gait indoors and level outdoors with FWW Functional Limitations- Work/School unable to work Personal Factors Other Personal Factors That May Effect currently with lymphoma ( Therapy/Recovery diagnosed prior to CVA but no treatment due to CVA) as well as a bad heart valve) which lymphoma and CVA also has hindered treatment. Baseline low back pain with R sided sciatic. Obesity, although lost weight recently. PT-OP-C Subjective Start: 02/06/18 07:16 Freq: Status: Active Protocol: Document 04/22/18 13:53 RCC (Rec: 04/23/18 13:25 [facility] [email or web address]) OP-PT Subjective Patient Comments Patient Comments Pt reports his had surgery, so he has not been stretching as much because she cannot help. He does notice that his L foot is clearing the ground better with ambulation. PT-OP-D Balance Start: 02/06/18 07:16 Freq: Status: Active Protocol: Document 02/04/18 12:45 RCC (Rec: 02/06/18 08:08 RCC [email or web address]) Balance Tests Single Limb Standing Single Limb- Right 5 sec Single Limb- Left unable Tandem Tandem Standing R posterior 15 sec, L posterior 3 sec PT-OP-E Functional Tests Start: 02/06/18 07:16 Freq: Status: Active Protocol: Document 03/31/18 12:05 RCC (Rec: 04/01/18 09:45 RCC [email or web address]) Functional Tests Timed Up and Go (TUG) Score 22 (3 trial average) Comments Quad Cane TUG Impairment Rating 100% Impaired (Score 20) PT-OP-G Mobility & Gait Start: 02/06/18 07:16 Freq: Status: Active Protocol: Document 02/11/18 12:45 RCC (Rec: 02/11/18 13:33 RCC [email or web address]) OP Gait Assessment Comments Gait Comments toe drag x4 with 120 ft of ambulation at end of session using quad cane PT-OP-H Neuro Start: 02/06/18 07:16 Freq: Status: Active Protocol: Document 02/04/18 12:45 RCC (Rec: 02/06/18 08:08 RCC [email or web address]) Sensation Evaluation Comments Summary Comments pt reports sensation intact UE and LE Coordination Evaluation Upper Extremity Tests Right Finger to Nose Test Normal Performance Pronation/Supination Test Normal Performance Left Finger to Nose Test Moderate Impairment Pronation/Supination Test Severe Impairment Lower Extremity Tests Right Alternate Heel to Knee; Heel to Toe Test Normal Performance Foot Tapping Test Normal Performance Left Alternate Heel to Knee; Heel to Toe Test Severe Impairment Foot Tapping Test Severe Impairment Deep Tendon Reflex & Clonus Assessment Ankle Clonus Right Clonus Assessment Absent Left Clonus Assessment 1 Beat PT-OP-M Strength Start: 02/06/18 07:16 Freq: Status: Active Protocol: Document 03/31/18 12:05 RCC (Rec: 04/01/18 09:45 RCC [email or web address]) Hip Strength Hip Manual Muscle Testing Left Flexion (L2) 4- Good- External Rotation 4- Good- Internal Rotation 3+ Fair+ Knee Strength Knee Manual Muscle Testing Left Flexion (S2) 4- Good- Extension (L3) 4- Good- Ankle/Foot Strength Ankle and Foot Manual Muscle Testing Left Dorsiflexion (L4) 3+ Fair+ Plantarflexion (S1) 2+ Poor+ Inversion 4- Good- Eversion (S1) 3+ Fair+ PT-OP-T Assessment and Plan Start: 02/06/18 07:16 Freq: Status: Active Protocol: Document 08/14/18 13:16 RCC (Rec: 08/14/18 13:18 RCC [email or web address]) Physical Therapy Assessment Assessment Summary Assessment Due to medical complexities, pt ended up requiring cardiac surgery and was then scheduled for cardiac rehabilitation in May of 2018. Pt will be d/c at this time due to failure to complete most recent plan of care and transfer to cardiac rehabilitation. Expect pt will benefit from further skilled outpatient physical therapy when deemed medically necessary s/p CVA and pacemaker. Physical Therapy Plan Discharge Physical Therapy Discharge Reasons Change in Medical Status
== END 2018-08-27 11:06 | disposition home or self-care (01) ==
LOC: PHYS 13:45
PROVIDERS: PCP Internal Medicine; Visit Provider Internal Medicine
DX: Z74.09 Other reduced mobility (principal); G81.94 Hemiplegia, unspecified affecting left nondominant side; I63.511 Cerebral infarction due to unspecified occlusion or stenosis of right middle cerebral artery; R41.4 Neurologic neglect syndrome
CPT/HCPCS: 97110; 97112; 97116; 97140; 97163

== ENCOUNTER 2018-05-16 18:41 | Emergency (ER) | payer OTHER, SELFPAY ==
[2018-05-16 18:44] VITALS: BP 144/61; PULSE 60; RESP 18; TEMP 36.8; O2SAT 97
--- NOTE | 2018-05-16 19:13 | PC.NURSE ---
recent pacemaker insertion after a pacemaker insertion. incision site looks great. no pus. no fevers at home. Dr. Ramos removed the remainder of the dermabond. pt has a small collection of old blood noted that is draining out when expressed by Dr. Ramos. will apply steri strips
--- NOTE | 2018-05-16 19:25 | DI.RAD.S_ITS ---
PROCEDURE: XR CHEST 1V INDICATIONS: pacemaker placement TECHNIQUE: One view of the chest was acquired. COMPARISON: [facility], CR, XR CHEST 1V, 12/27/2017, 16:45. FINDINGS: Surgical changes and devices: Left-sided pacer. Cardiac valve. Lungs and pleura: Lungs are clear. No pleural effusions or pneumothorax. Mediastinum: Mediastinal contours appear normal. Heart size is normal. Bones and chest wall: No suspicious bony lesions. Overlying soft tissues appear unremarkable. IMPRESSION: No acute process. Dictated by: Julianne Manriquez M.D. on 05/16/2018 at 19:59 Approved by: Julianne Manriquez M.D. on 05/16/2018 at 19:59
--- NOTE | 2018-05-16 19:44 | ED.SKABFB ---
HPI - Skin/Abscess/Foreign Bdy General Chief complaint: Skin/Abscess/Foreign Body Stated complaint: had a pacemaker put in, now bleeding Time Seen by Provider: 05/16/18 18:56 Source: patient Mode of arrival: ambulatory Limitations: no limitations History of Present Illness HPI narrative: Patient is a 68-year-old male presenting with bleeding from incision site. He had a pacemaker placed as 2 weeks ago. He had a follow-up appointment with his thermoforming operator week ago. They pulled off the bandage since then he has noticed some oozing from the incision site. He is on aspirin and Plavix. He has no redness around the incision site no fever no shortness of breath or chest pain. Related Data Home Medications Medication Instructions Recorded Confirmed ASPIRIN (Aspirin Low Dose) #0 11/09/09 CALCIUM CARBONATE/VITAMIN D3 #0 11/09/09 (Oyster Shell Calcium-Vit D Tab) furosemide 40 mg PO Q DAY #0 09/24/10 Previous Rx's Medication Instructions Recorded losartan 50 mg PO BID #180 02/06/11 CHLORTHALIDONE (#HYGROTON) 25 mg PO Q DAY #100 04/02/11 amlodipine 5 mg PO BID #100 05/22/11 Allergies Allergy/AdvReac Type Severity Reaction Status Date / Time No Known Drug Allergies Allergy Verified 12/27/17 16:31 Review of Systems Review of Systems GENERAL: Denies chills, fatigue, malaise, fever, sweats, travel HEENT: Denies sinus pain, ear pain, sore throat, difficulty swallowing, neck pain RESPIRATORY: Denies dyspnea, cough, wheezing, hemoptysis, sputum. CARDIOVASCULAR: Denies chest pain, palpitations, orthopnea, edema GASTROINTESTINAL: Denies nausea, vomiting, abdominal pain, diarrhea, constipation, melena. : Denies dysuria, frequency, incontinence, hematuria, urinary retention, flank pain. MUSCULOSKELETAL: Denies weakness, joint pain, or bony pain SKIN: See HPI NEUROLOGIC: Denies weakness, dizziness, headache, numbness, change in speech, confusion PSYCHIATRIC: No concerning psychosocial issues. 12 point review of systems is negative except for those stated above and HPI COUNTS INCLUDE 234 BEDS AT THE [facility] Medical History Lymphoma (Acute) TIA (transient ischemic attack) (Acute) Surgical History Status post cardiac pacemaker procedure (Acute) S/P bronchoscopy with biopsy (Acute) Social History Smoking Status: Never smoker substance use type: does not use Social History Smoking Status: Never smoker substance use type: does not use Exam Initial Vital Signs Initial Vital Signs: Vital Signs Temperature 98.2 F 05/16/18 18:44 Pulse Rate 60 05/16/18 18:44 Respiratory Rate 18 05/16/18 18:44 Blood Pressure 144/61 H 05/16/18 18:44 Pulse Oximetry 97 05/16/18 18:44 GENERAL: Alert well-appearing male no acute distress HEENT: Head atraumatic,EOMI, pupils reactive CARDIOVASCULAR: Regular rate and rhythm without murmurs, rubs or gallops. RESPIRATORY: Breath sounds equal bilaterally, no wheezes rales or rhonchi. ABDOMEN: Soft, nontender. Normoactive bowel sounds all 4 quadrants. No guarding or rebound. EXTREMITIES: Normal range of motion, no clubbing or edema. Neurovascularly intact NEUROLOGICAL: Alert and oriented x4.Normal gait and speech. SKIN: Incision site left chest noted. No surrounding erythema. Glue is starting to come up extremely dark blood oozing through incision site Course Orders Ordered: ED Orders 05/16/18 19:25 XR chest 1V Stat Vital Signs - 8 hr 05/16/18 20:00 05/16/18 20:27 05/16/18 20:43 Pulse Rate 60 61 60 Respiratory Rate 18 15 18 Blood Pressure 145/63 H Blood Pressure [Left Arm] 131/66 131/66 Pulse Oximetry 97 96 97 MDM - Skin/Abscess/Foreign Bdy Imaging Data Chest x-ray: Radiologist's impression: PROCEDURE: XR CHEST 1V INDICATIONS: pacemaker placement TECHNIQUE: One view of the chest was acquired. COMPARISON: [facility], , XR CHEST 1V, 12/27/2017, 16:45. FINDINGS: Surgical changes and devices: Left-sided pacer. Cardiac valve. Lungs and pleura: Lungs are clear. No pleural effusions or pneumothorax. Mediastinum: Mediastinal contours appear normal. Heart size is normal. Bones and chest wall: No suspicious bony lesions. Overlying soft tissues appear unremarkable. IMPRESSION: No acute process. Dictated by: Julianne Manriquez M.D. on 05/16/2018 at 19:59 ECG Data Attestation: I personally reviewed and interpreted this ECG as follows: Prior ECG tracings: available for review Interpretation: Paced rhythm rate 61 pacemaker new since previous EKG left bundle branch block MDM Narrative Medical decision making narrative: Blue was removed by myself. Old of blood was expressed as best to my ability. Steri-Strips placed by nursing new bandage placed. At this time there is no sign of infection. Discharge Plan Departure Patient Disposition: Home Clinical Impression: Dehiscence of incision Discharge Date/Time: 05/16/18 20:48 Interventions: ED Discharge Assessment Last Done: 05/16/18 20:43 Instructions: DI for Wound Dehiscence Activity Restrictions/Additional Instructions: *You have been diagnosed with wound dehiscence *What to do: Keep dressing in place. Bleeding is likely from old blood under the skin *Continue to take medications as directed *Follow up with your primary care provider in 2-3 days, follow up with your thermoforming operator, call tomorrow to schedule appointment *Return to ER if you should have redness pain fever or any new, worsening or concerning symptoms Prescriptions: No Action ASPIRIN (Aspirin Low Dose) Qty: 0 RF: 0 CALCIUM CARBONATE/VITAMIN D3 (Oyster Shell Calcium-Vit D Tab) Qty: 0 RF: 0 furosemide 40 MG tablet 40 mg PO Q DAY Qty: 0 RF: 0 losartan 50 MG tablet 50 mg PO BID Qty: 180 RF: 0 CHLORTHALIDONE (#HYGROTON) 25 mg PO Q DAY Qty: 100 RF: 0 amlodipine 10 MG tablet 5 mg PO BID Qty: 100 RF: 0 Referrals: Layton Francis MD [Primary Care Provider] -
--- NOTE | 2018-05-16 19:47 | ED_ITS ---
HPI - Skin/Abscess/Foreign Bdy General Chief complaint: Skin/Abscess/Foreign Body Stated complaint: had a pacemaker put in, now bleeding Time Seen by Provider: 05/16/18 18:56 Source: patient Mode of arrival: ambulatory Limitations: no limitations History of Present Illness HPI narrative: Patient is a 68-year-old male presenting with bleeding from incision site. He had a pacemaker placed as 2 weeks ago. 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 They pulled off the bandage since then he has noticed some oozing from the incision site. He is on aspirin and Plavix. He has no redness around the incision site no fever no shortness of breath or chest pain. Related Data Home Medications Medication Instructions Recorded Confirmed ASPIRIN (Aspirin Low Dose) #0 11/09/09 CALCIUM CARBONATE/VITAMIN D3 #0 11/09/09 (Oyster Shell Calcium-Vit D Tab) furosemide 40 mg PO Q DAY #0 09/24/10 Previous Rx's Medication Instructions Recorded losartan 50 mg PO BID #180 02/06/11 CHLORTHALIDONE (#HYGROTON) 25 mg PO Q DAY #100 04/02/11 amlodipine 5 mg PO BID #100 05/22/11 Allergies Allergy/AdvReac Type Severity Reaction Status Date / Time No Known Drug Allergies Allergy Verified 12/27/17 16:31 Review of Systems Review of Systems GENERAL: Denies chills, fatigue, malaise, fever, sweats, travel HEENT: Denies sinus pain, ear pain, sore throat, difficulty swallowing, neck pain RESPIRATORY: Denies dyspnea, cough, wheezing, hemoptysis, sputum. CARDIOVASCULAR: Denies chest pain, palpitations, orthopnea, edema GASTROINTESTINAL: Denies nausea, vomiting, abdominal pain, diarrhea, c onstipation, melena. : Denies dysuria, frequency, incontinence, hematuria, urinary retention, flank pain. MUSCULOSKELETAL: Denies weakness, joint pain, or bony pain SKIN: See HPI NEUROLOGIC: Denies weakness, dizziness, headache, numbness, change in speech, confusion PSYCHIATRIC: No concerning psychosocial issues. 12 point review of systems is negative except for those stated above and HPI [facility] Medical History Lymphoma (Acute) TIA (transient ischemic attack) (Acute) Surgical History Status post cardiac pacemaker procedure (Acute) S/P bronchoscopy with biopsy (Acute) Social History Smoking Status: Never smoker substance use type: does not use Social History Smoking Status: Never smoker substance use type: does not use Exam Initial Vital Signs Initial Vital Signs: Vital Signs Temperature 98.2 F 05/16/18 18:44 Pulse Rate 60 05/16/18 18:44 Respiratory Rate 18 05/16/18 18:44 Blood Pressure 144/61 H 05/16/18 18:44 Pulse Oximetry 97 05/16/18 18:44 GENERAL: Alert well-appearing male no acute distress HEENT: Head atraumatic,EOMI, pupils reactive CARDIOVASCULAR: Regular rate and rhythm without murmurs, rubs or gallops. RESPIRATORY: Breath sounds equal bilaterally, no wheezes rales or rhonchi. ABDOMEN: Soft, nontender. Normoactive bowel sounds all 4 quadrants. No guarding or rebound. EXTREMITIES: Normal range of motion, no clubbing or edema. Neurovascularly intact NEUROLOGICAL: Alert and oriented x4.Normal gait and speech. SKIN: Incision site left chest noted. No surrounding erythema. Glue is starting to come up extremely dark blood oozing through incision site Course Orders Ordered: ED Orders 05/16/18 19:25 XR chest 1V Stat Vital Signs - 8 hr 05/16/18 20:00 05/16/18 20:27 05/16/18 20:43 Pulse Rate 60 61 60 Respiratory Rate 18 15 18 Blood Pressure 145/63 H Blood Pressure [Left Arm] 131/66 131/66 Pulse Oximetry 97 96 97 MDM - Skin/Abscess/Foreign Bdy Imaging Data Chest x-ray: Radiologist's impression: PROCEDURE: XR CHEST 1V INDICATIONS: pacemaker placement TECHNIQUE: One view of the chest was acquired. COMPARISON: [facility], CR, XR CHEST 1V, 12/27/2017, 16:45. FINDINGS: Surgical changes and devices: Left-sided pacer. Cardiac valve. Lungs and pleura: Lungs are clear. No pleural effusions or pneumothorax. Mediastinum: Mediastinal contours appear normal. Heart size is normal. Bones and chest wall: No suspicious bony lesions. Overlying soft tissues appear unremarkable. IMPRESSION: No acute process. Dictated by: Julianne Manriquez M.D. on 05/16/2018 at 19:59 ECG Data Attestation: I personally reviewed and interpreted this ECG as follows: Prior ECG tracings: available for review Interpretation: Paced rhythm rate 61 pacemaker new since previous EKG left bundle branch block MDM Narrative Medical decision making narrative: Blue was removed by myself. Old of blood was expressed as best to my ability. Steri-Strips placed by nursing new bandage placed. At this time there is no sign of infection. Discharge Plan Departure Patient Disposition: Home Clinical Impression: Dehiscence of incision Discharge Date/Time: 05/16/18 20:48 Interventions: ED Discharge Assessment Last Done: 05/16/18 20:43 Instructions: DI for Wound Dehiscence Activity Restrictions/Additional Instructions: *You have been diagnosed with wound dehiscence *What to do: Keep dressing in place. Bleeding is likely from old blood under the skin *Continue to take medications as directed *Follow up with your primary care provider in 2-3 days, follow up with your car diologist, call tomorrow to schedule appointment *Return to ER if you should have redness pain fever or any new, worsening or concerning symptoms Prescriptions: No Action ASPIRIN (Aspirin Low Dose) Qty: 0 RF: 0 CALCIUM CARBONATE/VITAMIN D3 (Oyster Shell Calcium-Vit D Tab) Qty: 0 RF: 0 furosemide 40 MG tablet 40 mg PO Q DAY Qty: 0 RF: 0 losartan 50 MG tablet 50 mg PO BID Qty: 180 RF: 0 CHLORTHALIDONE (#HYGROTON) 25 mg PO Q DAY Qty: 100 RF: 0 amlodipine 10 MG tablet 5 mg PO BID Qty: 100 RF: 0 Referrals: Layton Francis MD [Primary Care Provider] -
[2018-05-16 20:00] VITALS: BP 131/66; PULSE 60; RESP 18; O2SAT 97
[2018-05-16 20:27] VITALS: BP 131/66; PULSE 61; RESP 15; O2SAT 96
[2018-05-16 20:43] VITALS: BP 145/63; PULSE 60; RESP 18; O2SAT 97
== END 2018-05-16 20:48 | disposition home or self-care (01) ==
PROVIDERS: Emergency Provider Emergency Medicine; PCP Internal Medicine
DX: T81.31XA Disruption of external operation (surgical) wound, not elsewhere classified, initial encounter (principal)
CPT/HCPCS: 71045; 93005; 99283; 99284

== ENCOUNTER → 2018-05-19 16:32 | Outpatient (CLI) | payer OTHER, SELFPAY ==
[2018-05-19 17:26] LABS: Add Manual Diff / Slide Review NO; Basophils Absolute Auto 100 /uL (0-100); Basophils Percent Auto 0.7 % (0-2); Eosinophils Absolute Auto 400 /uL (0-450); Hematocrit 43.9 % (41-53); Hemoglobin 14.4 g/dL (13.5-17.5); Lymphocytes Absolute Auto 1400 /uL (1100-4500); Lymphocytes Percent Auto 16.7 % (25-40); Mean Corpuscular HGB Conc 32.8 % (30-36); Mean Corpuscular Hemoglobin 28.4 PG (26-34); Mean Corpuscular Volume 86.4 fL (80-100); Monocytes Absolute Auto 700 /uL (0-900); Monocytes Percent Auto 8.3 % (3-14); Neutrophils Absolute Auto 6000 /uL (1500-7000); Neutrophils Percent Auto 69.3 % (50-75); Platelet Count 294 X10^3/uL (150-400); Red Blood Cell Count 5.08 X10^6/uL (4.5-5.9); Red Cell Distribution Width 15.9 % (11.6-14.8); White Blood Cell Count 8.6 X10^3/uL (4.5-11.0)
[2018-05-19 18:16] LABS: BUN Creatinine Ratio 26.7 (6-22); Blood Urea Nitrogen 24 mg/dL (9-20); Calcium 8.9 mg/dL (8.4-10.2); Carbon Dioxide 25 mmol/L (22-32); Chloride 102 mmol/L (98-107); Estimated Glomerular Filt Rate > 60.0 mL/min (>60); Glucose 81 mg/dL (80-110); HEMOLYSIS < 15 (0-50); Potassium 4.5 mmol/L (3.4-5.1); Sodium 137 mmol/L (137-145)
== END ==
PROVIDERS: PCP Internal Medicine; Visit Provider Internal Medicine Interventional Cardiology
DX: I35.0 Nonrheumatic aortic (valve) stenosis (principal); Z95.2 Presence of prosthetic heart valve
CPT/HCPCS: 36415; 80048; 85025

== ENCOUNTER → 2018-05-25 16:15 | Outpatient (CLI) | payer OTHER, SELFPAY ==
--- NOTE | 2018-05-25 | DI.RAD.S_ITS ---
PROCEDURE: XR FOOT RT MIN 3V INDICATIONS: RT BIG TOE and FOOT PAIN TECHNIQUE: 3 views of the foot were acquired. COMPARISON: None. FINDINGS: Bones: No fractures or dislocations. No suspicious bony lesions. Calcaneal spurring. Joint space narrowing and periarticular osteophyte formation at the tibiotalar, talonavicular, and naviculocuneiform joints. Periarticular osteophyte formation at the 1st metatarsal phalangeal joint. Irregular appearing chronic ossification adjacent to the proximal aspect of the 5th metatarsal, possibly due to chronic inflammation or remote trauma. Soft tissues: No tibiotalar joint effusion. Achilles tendon appears normal. IMPRESSION: 1. Osteoarthritis. 2. No acute fracture. No osseous lesion. If symptoms and/or clinical suspicion for pathology persist, further assessment with repeat, or advanced imaging (e.g., CT, MRI, or bone scan) may be helpful for further assessment. Dictated by: Julianne Manriquez M.D. on 05/25/2018 at 16:42 Approved by: Julianne Manriquez M.D. on 05/25/2018 at 16:44
== END ==
PROVIDERS: PCP Internal Medicine; Visit Provider Internal Medicine
DX: M79.674 Pain in right toe(s) (principal); M79.671 Pain in right foot; M19.071 Primary osteoarthritis, right ankle and foot
CPT/HCPCS: 73630

== ENCOUNTER 2018-07-01 08:30 | Outpatient (RCR) | payer OTHER, SELFPAY | END 2018-07-19 14:47 | LOC: CAR 08:30 | PROVIDERS: PCP Internal Medicine; Visit Provider Internal Medicine Interventional Cardiology | DX: I50.30 Unspecified diastolic (congestive) heart failure (principal); I35.0 Nonrheumatic aortic (valve) stenosis | CPT/HCPCS: 93798 ==

== ENCOUNTER → 2018-07-13 11:20 | Outpatient (CLI) | payer OTHER, SELFPAY ==
[2018-07-13 12:37] LABS: Add Manual Diff / Slide Review NO; Basophils Absolute Auto 100 /uL (0-100); Basophils Percent Auto 0.7 % (0-2); Eosinophils Absolute Auto 200 /uL (0-450); Eosinophils Percent Auto 3.3 % (2-4); Hematocrit 38.8 % (41-53); Lymphocytes Absolute Auto 1100 /uL (1100-4500); Lymphocytes Percent Auto 15.1 % (25-40); Mean Corpuscular HGB Conc 33.5 % (30-36); Mean Corpuscular Hemoglobin 29.5 PG (26-34); Monocytes Absolute Auto 700 /uL (0-900); Monocytes Percent Auto 9.5 % (3-14); Neutrophils Absolute Auto 5200 /uL (1500-7000); Neutrophils Percent Auto 71.4 % (50-75); Platelet Count 259 X10^3/uL (150-400); Red Blood Cell Count 4.41 X10^6/uL (4.5-5.9); Red Cell Distribution Width 14.4 % (11.6-14.8); White Blood Cell Count 7.3 X10^3/uL (4.5-11.0)
[2018-07-13 13:11] LABS: Alanine Aminotransferase 30 IU/L (21-72); Albumin Globulin Ratio 1.4 (1.0-2.8); Alkaline Phosphatase 81 U/L (38-126); Aspartate Aminotransferase 25 IU/L (17-59); Bilirubin Total 0.8 mg/dL (0.2-1.3); Blood Urea Nitrogen 17 mg/dL (9-20); Calcium 9.1 mg/dL (8.4-10.2); Carbon Dioxide 29 mmol/L (22-32); Chloride 101 mmol/L (98-107); Estimated Glomerular Filt Rate > 60.0 mL/min (>60); Globulin 2.9 g/dL (1.7-4.1); Glucose 75 mg/dL (80-110); HEMOLYSIS < 15 (0-50); Lactate Dehydrogenase 681 U/L (313-618); Potassium 4.5 mmol/L (3.4-5.1); Sodium 139 mmol/L (137-145); Total Protein 6.9 g/dL (6.3-8.2)
== END ==
PROVIDERS: PCP Internal Medicine; Visit Provider Internal Medicine Hematology & Oncology
DX: C83.12 Mantle cell lymphoma, intrathoracic lymph nodes (principal)
CPT/HCPCS: 36415; 80053; 83615; 85025

== ENCOUNTER → 2018-10-12 15:31 | Outpatient (CLI) | payer OTHER, SELFPAY ==
[2018-10-12 16:01] LABS: Add Manual Diff / Slide Review NO; Basophils Absolute Auto 100 /uL (0-100); Basophils Percent Auto 0.9 % (0-2); Eosinophils Absolute Auto 300 /uL (0-450); Eosinophils Percent Auto 3.4 % (2-4); Hemoglobin 14.3 g/dL (13.5-17.5); Lymphocytes Absolute Auto 1200 /uL (1100-4500); Lymphocytes Percent Auto 14.6 % (25-40); Mean Corpuscular HGB Conc 33.3 % (30-36); Mean Corpuscular Hemoglobin 26.4 PG (26-34); Mean Corpuscular Volume 79.3 fL (80-100); Monocytes Absolute Auto 700 /uL (0-900); Monocytes Percent Auto 8.4 % (3-14); Neutrophils Absolute Auto 5800 /uL (1500-7000); Neutrophils Percent Auto 72.7 % (50-75); Platelet Count 208 X10^3/uL (150-400); Red Blood Cell Count 5.42 X10^6/uL (4.5-5.9); Red Cell Distribution Width 17.5 % (11.6-14.8)
[2018-10-12 16:40] LABS: Alanine Aminotransferase 23 IU/L (21-72); Albumin 3.9 g/dL (3.5-5.0); Albumin Globulin Ratio 1.1 (1.0-2.8); Alkaline Phosphatase 80 U/L (38-126); Aspartate Aminotransferase 30 IU/L (17-59); Bilirubin Total 0.8 mg/dL (0.2-1.3); Blood Urea Nitrogen 25 mg/dL (9-20); Carbon Dioxide 25 mmol/L (22-32); Chloride 103 mmol/L (98-107); Estimated Glomerular Filt Rate > 60.0 mL/min (>60); Globulin 3.4 g/dL (1.7-4.1); Glucose 104 mg/dL (80-110); HEMOLYSIS 16 (0-50); Potassium 4.4 mmol/L (3.4-5.1); Sodium 137 mmol/L (137-145); Total Protein 7.3 g/dL (6.3-8.2)
== END ==
PROVIDERS: Family Provider Internal Medicine; PCP Internal Medicine; Visit Provider Internal Medicine Hematology & Oncology
DX: C83.12 Mantle cell lymphoma, intrathoracic lymph nodes (principal)
CPT/HCPCS: 36415; 80053; 85025

== ENCOUNTER → 2019-01-05 16:51 | Outpatient (CLI) | payer OTHER, SELFPAY ==
[2019-01-05 17:49] LABS: Alanine Aminotransferase 24 IU/L (<50); Aspartate Aminotransferase 28 IU/L (17-59); Cholesterol 216 mg/dL (140-199); HDL Cholesterol 31 mg/dL (40-60); LDL Cholesterol Calculated 152 mg/dL (<100); Triglycerides 163 mg/dL (35-150)
== END ==
PROVIDERS: PCP Internal Medicine; Visit Provider Internal Medicine
DX: E78.2 Mixed hyperlipidemia (principal)
CPT/HCPCS: 36415; 80061; 84450; 84460

== ENCOUNTER → 2019-11-18 14:47 | Outpatient (CLI) | payer OTHER, SELFPAY ==
[2019-11-18 16:02] LABS: Alanine Aminotransferase 24 IU/L (<50); Albumin 3.9 g/dL (3.5-5.0); Albumin Globulin Ratio 1.1 (1.0-2.8); Alkaline Phosphatase 88 U/L (38-126); Aspartate Aminotransferase 28 IU/L (17-59); BUN Creatinine Ratio 16.3 (6-22); Bilirubin Total 1.3 mg/dL (0.2-1.3); Blood Urea Nitrogen 20 mg/dL (9-20); Carbon Dioxide 29 mmol/L (22-32); Chloride 102 mmol/L (98-107); Globulin 3.7 g/dL (1.7-4.1); Glucose 115 mg/dL (80-110); HEMOLYSIS < 15 (0-50); Potassium 4.1 mmol/L (3.4-5.1); Sodium 139 mmol/L (137-145); Total Protein 7.6 g/dL (6.3-8.2)
[2019-11-18 19:41] LABS: Vitamin D 25 Hydroxy (D3) 42.1 ng/mL (30.0-100.0)
[2019-11-18 19:55] LABS: TSH w/ Reflex to FT4 1.71 uIU/mL (0.47-4.68)
[2019-11-18 20:12] LABS: Vitamin B12 369 pg/mL (239-931)
[2019-11-22 16:31] LABS: Albumin 3.6 g/dL (2.9-4.4); Alpha 1 Globulin 0.2 g/dL (0.0-0.4); Alpha 2 Globulin 0.5 g/dL (0.4-1.0); Beta 1 Globulin 1.3 g/dL (0.7-1.3); Gamma Globulin 1.4 g/dL (0.4-1.8)
== END ==
PROVIDERS: PCP Family Medicine; Referring Provider Internal Medicine Hematology; Visit Provider Internal Medicine Hematology
DX: C83.12 Mantle cell lymphoma, intrathoracic lymph nodes (principal); G62.9 Polyneuropathy, unspecified; E78.5 Hyperlipidemia, unspecified; I10 Essential (primary) hypertension
CPT/HCPCS: 36415; 80053; 82306; 82607; 84155; 84165; 84443

== ENCOUNTER → 2020-01-13 14:12 | Outpatient (CLI) | payer OTHER, SELFPAY ==
[2020-01-13 14:48] LABS: Alanine Aminotransferase 17 IU/L (<50); Albumin 4.1 g/dL (3.5-5.0); Albumin Globulin Ratio 1.2 (1.0-2.8); Alkaline Phosphatase 69 U/L (38-126); Aspartate Aminotransferase 23 IU/L (17-59); BUN Creatinine Ratio 19.8 (6-22); Bilirubin Total 1.4 mg/dL (0.2-1.3); Blood Urea Nitrogen 21 mg/dL (9-20); Calcium 8.9 mg/dL (8.4-10.2); Carbon Dioxide 26 mmol/L (22-32); Chloride 108 mmol/L (98-107); Estimated Glomerular Filt Rate > 60.0 mL/min (>60); Globulin 3.4 g/dL (1.7-4.1); Glucose 102 mg/dL (80-110); HEMOLYSIS < 15 (0-50); Potassium 4.6 mmol/L (3.4-5.1); Sodium 137 mmol/L (137-145); Total Protein 7.5 g/dL (6.3-8.2)
[2020-01-13 15:23] LABS: Cholesterol 189 mg/dL (140-199); HDL Cholesterol 19 mg/dL (40-60); LDL Cholesterol Calculated 139 mg/dL (<100); Triglycerides 155 mg/dL (35-150)
[2020-01-17 17:18] LABS: Albumin 3.5 g/dL (2.9-4.4); Alpha 1 Globulin 0.2 g/dL (0.0-0.4); Alpha 2 Globulin 0.4 g/dL (0.4-1.0); Beta 1 Globulin 1.2 g/dL (0.7-1.3); Gamma Globulin 1.5 g/dL (0.4-1.8); Protein, Total 6.8 g/dL (6.0-8.5)
== END ==
PROVIDERS: PCP Family Medicine; Referring Provider Internal Medicine Hematology; Visit Provider Internal Medicine Hematology
DX: C83.12 Mantle cell lymphoma, intrathoracic lymph nodes (principal); N28.9 Disorder of kidney and ureter, unspecified; E78.5 Hyperlipidemia, unspecified
CPT/HCPCS: 36415; 80053; 80061; 84155; 84165

== ENCOUNTER → 2020-01-25 14:50 | Outpatient (CLI) | payer OTHER, SELFPAY ==
[2020-01-25 16:38] LABS: Lactate Dehydrogenase 654 U/L (313-618)
[2020-01-26 06:46] LABS: Hepatitis B Core AB w/Reflex Negative (Negative)
[2020-01-26 06:46] LABS: Hepatitis B Surf AB Quant 4.3 mIU/mL (Immunity>9.9)
== END ==
PROVIDERS: PCP Family Medicine; Referring Provider Internal Medicine Hematology & Oncology; Visit Provider Internal Medicine Hematology & Oncology
DX: C83.12 Mantle cell lymphoma, intrathoracic lymph nodes (principal)
CPT/HCPCS: 36415; 83615; 86704; 86706

== ENCOUNTER → 2020-02-14 15:00 | Outpatient (CLI) | payer OTHER, SELFPAY ==
[2020-02-14 15:17] LABS: Add Manual Diff / Slide Review NO; Basophils Absolute Auto 100 /uL (0-100); Basophils Percent Auto 1.1 % (0-2); Eosinophils Absolute Auto 500 /uL (0-450); Hematocrit 35.2 % (41-53); Lymphocytes Absolute Auto 1300 /uL (1100-4500); Lymphocytes Percent Auto 15.7 % (25-40); Mean Corpuscular HGB Conc 34.2 % (30-36); Mean Corpuscular Hemoglobin 29.8 PG (26-34); Mean Corpuscular Volume 87.1 fL (80-100); Monocytes Absolute Auto 800 /uL (0-900); Monocytes Percent Auto 9.7 % (3-14); Neutrophils Absolute Auto 5600 /uL (1500-7000); Neutrophils Percent Auto 67.5 % (50-75); Platelet Count 256 X10^3/uL (150-400); Red Blood Cell Count 4.04 X10^6/uL (4.5-5.9); Red Cell Distribution Width 16.7 % (11.6-14.8); White Blood Cell Count 8.3 X10^3/uL (4.5-11.0)
[2020-02-14 15:28] LABS: Alanine Aminotransferase 19 IU/L (<50); Albumin 3.9 g/dL (3.5-5.0); Albumin Globulin Ratio 1.1 (1.0-2.8); Alkaline Phosphatase 73 U/L (38-126); Aspartate Aminotransferase 26 IU/L (17-59); BUN Creatinine Ratio 19.8 (6-22); Bilirubin Total 1.3 mg/dL (0.2-1.3); Blood Urea Nitrogen 22 mg/dL (9-20); Calcium 8.9 mg/dL (8.4-10.2); Carbon Dioxide 29 mmol/L (22-32); Chloride 104 mmol/L (98-107); Estimated Glomerular Filt Rate > 60.0 mL/min (>60); Globulin 3.5 g/dL (1.7-4.1); Glucose 87 mg/dL (80-110); HEMOLYSIS < 15 (0-50); Lactate Dehydrogenase 670 U/L (313-618); Potassium 3.9 mmol/L (3.4-5.1); Sodium 137 mmol/L (137-145); Total Protein 7.4 g/dL (6.3-8.2); Uric Acid 5.6 mg/dL (3.5-8.5)
== END ==
PROVIDERS: PCP Family Medicine; Referring Provider Family Medicine; Visit Provider Internal Medicine Hematology & Oncology
DX: C83.12 Mantle cell lymphoma, intrathoracic lymph nodes (principal)
CPT/HCPCS: 36415; 80053; 83615; 84550; 85025

== ENCOUNTER → 2020-03-22 12:57 | Outpatient (CLI) | payer OTHER, SELFPAY ==
[2020-03-22 13:14] LABS: Add Manual Diff / Slide Review NO; Basophils Absolute Auto 0 /uL (0-100); Basophils Percent Auto 0.1 % (0-2); Eosinophils Absolute Auto 200 /uL (0-450); Eosinophils Percent Auto 1.6 % (2-4); Hematocrit 40.1 % (41-53); Hemoglobin 13.4 g/dL (13.5-17.5); Lymphocytes Absolute Auto 300 /uL (1100-4500); Lymphocytes Percent Auto 2.5 % (25-40); Mean Corpuscular HGB Conc 33.3 % (30-36); Mean Corpuscular Hemoglobin 28.9 PG (26-34); Monocytes Absolute Auto 1100 /uL (0-900); Monocytes Percent Auto 10.1 % (3-14); Neutrophils Absolute Auto 9600 /uL (1500-7000); Neutrophils Percent Auto 85.7 % (50-75); Platelet Count 245 X10^3/uL (150-400); Red Blood Cell Count 4.61 X10^6/uL (4.5-5.9); Red Cell Distribution Width 17.4 % (11.6-14.8); White Blood Cell Count 11.2 X10^3/uL (4.5-11.0)
[2020-03-22 13:28] LABS: Alanine Aminotransferase 25 IU/L (<50); Albumin 3.6 g/dL (3.5-5.0); Albumin Globulin Ratio 1.3 (1.0-2.8); Alkaline Phosphatase 62 U/L (38-126); Aspartate Aminotransferase 20 IU/L (17-59); Blood Urea Nitrogen 23 mg/dL (9-20); Calcium 8.6 mg/dL (8.4-10.2); Carbon Dioxide 30 mmol/L (22-32); Chloride 102 mmol/L (98-107); Estimated Glomerular Filt Rate > 60.0 mL/min (>60); Globulin 2.8 g/dL (1.7-4.1); Glucose 94 mg/dL (80-110); HEMOLYSIS < 15 (0-50); Potassium 4.1 mmol/L (3.4-5.1); Sodium 134 mmol/L (137-145); Total Protein 6.4 g/dL (6.3-8.2)
== END ==
PROVIDERS: PCP Family Medicine; Referring Provider Internal Medicine Hematology & Oncology; Visit Provider Internal Medicine Hematology & Oncology
DX: C83.12 Mantle cell lymphoma, intrathoracic lymph nodes (principal)
CPT/HCPCS: 36415; 80053; 84550; 85025

== ENCOUNTER → 2020-03-27 14:34 | Outpatient (CLI) | payer OTHER, SELFPAY ==
[2020-03-27 15:44] LABS: Add Manual Diff / Slide Review NO; Basophils Absolute Auto 0 /uL (0-100); Basophils Percent Auto 0.5 % (0-2); Eosinophils Absolute Auto 200 /uL (0-450); Eosinophils Percent Auto 1.9 % (2-4); Hematocrit 39.1 % (41-53); Lymphocytes Absolute Auto 300 /uL (1100-4500); Lymphocytes Percent Auto 3.2 % (25-40); Mean Corpuscular HGB Conc 33.3 % (30-36); Mean Corpuscular Hemoglobin 29.2 PG (26-34); Mean Corpuscular Volume 87.7 fL (80-100); Monocytes Absolute Auto 800 /uL (0-900); Monocytes Percent Auto 9.3 % (3-14); Neutrophils Absolute Auto 7200 /uL (1500-7000); Neutrophils Percent Auto 85.1 % (50-75); Platelet Count 225 X10^3/uL (150-400); Red Blood Cell Count 4.46 X10^6/uL (4.5-5.9); Red Cell Distribution Width 17.2 % (11.6-14.8); White Blood Cell Count 8.5 X10^3/uL (4.5-11.0)
[2020-03-27 16:12] LABS: Alanine Aminotransferase 21 IU/L (<50); Albumin 3.3 g/dL (3.5-5.0); Albumin Globulin Ratio 1.2 (1.0-2.8); Alkaline Phosphatase 64 U/L (38-126); Aspartate Aminotransferase 19 IU/L (17-59); BUN Creatinine Ratio 15.9 (6-22); Bilirubin Total 0.5 mg/dL (0.2-1.3); Blood Urea Nitrogen 14 mg/dL (9-20); Calcium 8.6 mg/dL (8.4-10.2); Carbon Dioxide 28 mmol/L (22-32); Chloride 105 mmol/L (98-107); Estimated Glomerular Filt Rate > 60.0 mL/min (>60); Globulin 2.7 g/dL (1.7-4.1); Glucose 113 mg/dL (80-110); HEMOLYSIS < 15 (0-50); Magnesium 1.9 mg/dL (1.6-2.3); Potassium 4.3 mmol/L (3.4-5.1); Sodium 136 mmol/L (137-145)
== END ==
PROVIDERS: PCP Family Medicine; Referring Provider Internal Medicine Hematology & Oncology; Visit Provider Internal Medicine Hematology & Oncology
DX: C83.10 Mantle cell lymphoma, unspecified site (principal)
CPT/HCPCS: 36415; 80053; 83735; 85025

== ENCOUNTER → 2020-04-11 13:58 | Outpatient (CLI) | payer OTHER, SELFPAY ==
[2020-04-11 16:17] LABS: Add Manual Diff / Slide Review NO; Basophils Absolute Auto 0 /uL (0-100); Basophils Percent Auto 0.7 % (0-2); Eosinophils Absolute Auto 300 /uL (0-450); Eosinophils Percent Auto 4.3 % (2-4); Hematocrit 41.9 % (41-53); Hemoglobin 14.1 g/dL (13.5-17.5); Lymphocytes Absolute Auto 400 /uL (1100-4500); Lymphocytes Percent Auto 5.2 % (25-40); Mean Corpuscular HGB Conc 33.7 % (30-36); Mean Corpuscular Hemoglobin 29.2 PG (26-34); Mean Corpuscular Volume 86.8 fL (80-100); Monocytes Absolute Auto 500 /uL (0-900); Monocytes Percent Auto 6.7 % (3-14); Neutrophils Absolute Auto 5600 /uL (1500-7000); Neutrophils Percent Auto 83.1 % (50-75); Platelet Count 275 X10^3/uL (150-400); Red Blood Cell Count 4.83 X10^6/uL (4.5-5.9); Red Cell Distribution Width 17.5 % (11.6-14.8); White Blood Cell Count 6.7 X10^3/uL (4.5-11.0)
[2020-04-11 16:34] LABS: Alanine Aminotransferase 23 IU/L (<50); Albumin 3.8 g/dL (3.5-5.0); Albumin Globulin Ratio 1.3 (1.0-2.8); Alkaline Phosphatase 61 U/L (38-126); Aspartate Aminotransferase 26 IU/L (17-59); BUN Creatinine Ratio 17.8 (6-22); Bilirubin Total 0.6 mg/dL (0.2-1.3); Blood Urea Nitrogen 16 mg/dL (9-20); Calcium 8.7 mg/dL (8.4-10.2); Carbon Dioxide 28 mmol/L (22-32); Chloride 104 mmol/L (98-107); Estimated Glomerular Filt Rate > 60.0 mL/min (>60); Globulin 2.9 g/dL (1.7-4.1); Glucose 112 mg/dL (80-110); HEMOLYSIS < 15 (0-50); Potassium 4.3 mmol/L (3.4-5.1); Sodium 137 mmol/L (137-145); Total Protein 6.7 g/dL (6.3-8.2); Uric Acid 5.3 mg/dL (3.5-8.5)
== END ==
PROVIDERS: PCP Family Medicine; Referring Provider Internal Medicine; Visit Provider Internal Medicine
DX: C83.12 Mantle cell lymphoma, intrathoracic lymph nodes (principal)
CPT/HCPCS: 36415; 80053; 84550; 85025

== ENCOUNTER → 2020-06-06 17:07 | Outpatient (CLI) | payer MEDICARE, SELFPAY ==
[2020-06-06] MEDS: COVID-19 VACC #2, MRNA(MOD) 100 MCG/0.5 ML VIAL IM (17:16)
== END ==
PROVIDERS: PCP Family Medicine; Visit Provider Internal Medicine
DX: Z23 Encounter for immunization (principal)
CPT/HCPCS: 0012A; 91301

== ENCOUNTER → 2020-08-13 16:24 | Outpatient (CLI) | payer OTHER, SELFPAY ==
--- NOTE | 2020-08-13 16:27 | DI.RAD.S_ITS ---
PROCEDURE: XR KNEE LT 3V INDICATIONS: knee pain, weakness TECHNIQUE: 3 views of the knee were acquired. COMPARISON: [facility], CR, XR KNEE RT 3V, 08/13/2020, 16:28. FINDINGS: Bones: No fractures or dislocations. No suspicious bony lesions. Knee joint osteoarthritis is near severe at the medial compartment, equivalent to that on the right, with near [id number]-texy articulation. No effusion or loose body or trauma is found. Soft tissues: No joint effusion. No suspicious soft tissue calcifications. IMPRESSION: Near severe medial compartment knee joint osteoarthritis with near [id number]-gc-[id number] articulation that appears equivalent to that seen also same day on the right. Dictated by: Jonatan Dillon M.D. on 08/14/2020 at 9:09 Approved by: Jonatan Dillon M.D. on 08/14/2020 at 9:10
--- NOTE | 2020-08-13 16:27 | DI.RAD.S_ITS ---
PROCEDURE: XR KNEE RT 3V INDICATIONS: knee pain, weakness TECHNIQUE: 3 views of the knee were acquired. COMPARISON: [facility], CR, XR KNEE LT 3V, 08/13/2020, 16:28. FINDINGS: Bones: No fractures or dislocations. No suspicious bony lesions. Near severe medial compartment knee joint osteoarthritis noted, equivalent to that on the left. Soft tissues: No joint effusion. No suspicious soft tissue calcifications. IMPRESSION: The osteoarthritic change at the medial compartment is near severe, as was also seen same day on the left. Dictated by: Jonatan Dillon M.D. on 08/14/2020 at 9:10 Approved by: Jonatan Dillon M.D. on 08/14/2020 at 9:11
== END ==
PROVIDERS: PCP Family Medicine; Referring Provider Family Medicine; Visit Provider Family Medicine
DX: R53.1 Weakness (principal); M25.561 Pain in right knee; M25.562 Pain in left knee; M17.0 Bilateral primary osteoarthritis of knee
CPT/HCPCS: 73562

== ENCOUNTER 2021-01-10 16:00 | Outpatient (RCR) | payer OTHER, SELFPAY ==
--- NOTE | 2020-10-16 13:32 | PT.OIE ---
Current Diagnoses Bilateral primary osteoarthritis of knee (10/16/20) Past Medical History (Last Updated 02/18/20 @ 18:52 by Kylie Vinson DO) Atrial fibrillation Chicken pox Chronic back pain Complete heart block CVA (cerebral vascular accident) (~11/2017) History of tonsillectomy Kidney stones (~1975) Mantle cell lymphoma (~10/2017) Measles Melanoma (~1979) Mild aortic stenosis by prior echocardiogram (08/13/11) [place] Obesity Osteopenia of femoral neck, bilateral (~12/2018) Pacemaker (~04/2018) S/P bronchoscopy with biopsy S/P TAVR (transcatheter aortic valve replacement) (~04/2018) Skin cancer (~2004) Squamous cell carcinoma (08/2019) Status post cardiac pacemaker procedure (~05/14/18) TIA (transient ischemic attack) (~2009) Wears glasses Past Surgical History (Last Updated 08/02/20 @ 18:40 by Kylie Vinson DO) Anesthesia History of tonsillectomy S/P bronchoscopy with biopsy S/P TAVR (transcatheter aortic valve replacement) (~04/2018) Status post cardiac pacemaker procedure (~05/14/18) Visit Care Team Role Provider Type Kylie Vinson DO Attending Provider Physician Primary Care Provider Referring Provider Specialty: [facility] Address: [address] [place] [address], [address], [facility] Email: [email or web address] Physical Therapy Initial Evaluation PT-OP-B Current Condition Start: 10/16/20 13:00 Freq: Status: Active Protocol: Document 10/16/20 13:07 OF (Rec: 10/16/20 13:31 OF [id number]) Current Condition History of Current Condition Onset Date ~3yrs prior History of Current Condition Pt states he has had knee pain for at least 3 years, and had a CVA with L sided deficits. He is unsure of timeframe containing CVA, pacemaker placement, LE weakness and pain. Treatment Goals Patient/Caregiver Goals Make my knees stronger Prior Functional Status Baseline Function- ADL's Modified Independent Baseline Function- Mobility Modified Independent Baseline Function- Other Pt has limited endurance walking and performing activities due to L LE weakness PT-OP-C Subjective Start: 10/16/20 13:00 Freq: Status: Active Protocol: Document 10/16/20 13:07 OF (Rec: 10/16/20 13:31 OF [id number]) OP-PT Subjective Patient Comments Patient Comments pt reports fatigue with standing, AMB, difficulty carrying objects Patient Reported Progress Same Patient Questionnaires Lower Extremity Functional Scale LEFS Impairment 20 to 39% Impaired (Score 48- 62) OP-PT Pain Assessment Pain Assessment Grid Paper Pain Assessment Grid Completed Yes Location L knee Intensity 4 Scale Used Numeric (0 - 10) Description Aching,Burning Frequency Frequent Pain Aggravating Factors ADL's,Activity,Exercise, Walking,Swallowing PT-OP-E Functional Tests Start: 10/16/20 13:00 Freq: Status: Active Protocol: Document 10/16/20 13:07 OF (Rec: 10/16/20 13:31 OF [id number]) Functional Tests Five Times Sit to Stand Test Score 0 Comments unable without UE assist PT-OP-G Mobility & Gait Start: 10/16/20 13:00 Freq: Status: Active Protocol: Document 10/16/20 13:07 OF (Rec: 10/16/20 13:31 OF [id number]) OP Gait Assessment Assistive Devices Assistive Device Small Based Quad Cane Gait Deviations General Gait Pattern Antalgic,Decreased Stride Length Comments Gait Comments poor foot clearance on L, increased tone in L UE with dual tasking PT-OP-K Range of Motion Start: 10/16/20 13:00 Freq: Status: Active Protocol: Document 10/16/20 13:07 OF (Rec: 10/16/20 13:31 OF [id number]) Knee Goniometric Range of Motion Knee Right Knee ROM WFL Yes Left Knee ROM WFL Yes Ankle and Foot Goniometric Range of Motion Ankle and Foot Left Active Ankle/Foot ROM WFL No Dorsiflexion with Knee Flexed 10 Dorsiflexion with Knee Extended 5 Comments poor foot clearance with AMB Toe Range of Motion Toes ROM Limitations Comments 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 PT-OP-Q Treatments Start: 10/16/20 13:00 Freq: Status: Active Protocol: Document 10/16/20 13:07 OF (Rec: 10/16/20 13:31 OF [id number]) Self-Care/Home Management Treatment Education Patient Education Body Mechanics,Home Exercise Program,Pain Management PT-OP-T Assessment and Plan Start: 10/16/20 13:00 Freq: Status: Active Protocol: Document 10/16/20 13:07 OF (Rec: 10/16/20 13:31 OF [id number]) Physical Therapy Assessment Rehab Potential Rehabilitation Potential Good Evaluation Complexity Number of Personal Factors/Comorbidities 1-2 Number of Body Systems Impaired 1-2 Clinical Presentation at Evaluation Stable Impairments Impairments Activity Tolerance,Gait,Pain, ROM,Soft Tissue Mobility, Strength Goals 3 Impairment poor L sided ankle ROM Short Term Goal (STG) pt will improve dorsiflexion to 10 with knee ext to improve gait kinematics STG Duration 2 weeks Home Service Technician Goal (LTG) Pt will improve L ankle dorsiflexion to 15 to improve I with AMB and stairs 2 Impairment LE weakness Short Term Goal (STG) Pt will perform 5 sit to stands with UE assist to improve functional mobility and LE strength STG Duration 2 weeks Home Service Technician Goal (LTG) Pt will complete 12 sit to stands in 30 sec to demonstrate improved community mobility LTG Duration 6 weeks 1 Impairment pt lacks HEP Short Term Goal (STG) Pt will be I with written HEP to maximize functional return STG Duration 2 weeks Progress Towards Goals Progress Towards Goals Progressing Toward Goals Assessment Summary Assessment Pierce is a 70 yo male referred to therapy for his knee pain L worse than R. He describes sensation of giving way is most problematic. He reports a cva with L sided deficits a while ago he has increased plantarflexor tone with AMB, difficulty clearing L foot and quad weakness on L. He uses quad cane on R and has generalized weakness in LE . He will require skilled therapy to improve gait pattern, reduce fall risk, increase LE strength to return to MOD I within the community . Physical Therapy Plan Frequency and Duration Frequency of Treatment 1-2x/week Duration of Treatment 6weeks Plan of Care Start Date 10/16/20 Plan of Care End Date 11/27/20 Therapeutic Interventions Therapeutic Interventions Gait Training,Home Exercise Program,Manual Therapy, Neuromuscular Re-education, Therapeutic Exercises Next Visit Focus/Plan Next Note Type Treatment Note Next Visit Plan assess HEP performance, add Leg press, gastroc stretching, balance training
--- NOTE | 2020-10-16 13:32 | PT.OPPOC ---
Physical, Occupational & Speech Therapy At [facility] Current Diagnoses Bilateral primary osteoarthritis of knee (10/16/20) Visit Care Team Role Provider Type Kylie Vinson DO Attending Provider Physician Primary Care Provider Referring Provider Specialty: Family Practice Address: [address] [place] [address], [address], [address] Email: [email or web address] Plan Of Care PT-OP-T Assessment and Plan Start: 10/16/20 13:00 Freq: Status: Active Protocol: Document 10/16/20 13:07 OF (Rec: 10/16/20 13:31 OF [id number]) Physical Therapy Assessment Rehab Potential Rehabilitation Potential Good Evaluation Complexity Number of Personal Factors/Comorbidities 1-2 Number of Body Systems Impaired 1-2 Clinical Presentation at Evaluation Stable Impairments Impairments Activity Tolerance,Gait,Pain, ROM,Soft Tissue Mobility, Strength Goals 3 Impairment poor L sided ankle ROM Short Term Goal (STG) pt will improve dorsiflexion to 10 with knee ext to improve gait kinematics STG Duration 2 weeks Journeyman Painter Goal (LTG) Pt will improve L ankle dorsiflexion to 15 to improve I with AMB and stairs 2 Impairment LE weakness Short Term Goal (STG) Pt will perform 5 sit to stands with UE assist to improve functional mobility and LE strength STG Duration 2 weeks Journeyman Painter Goal (LTG) Pt will complete 12 sit to stands in 30 sec to demonstrate improved community mobility LTG Duration 6 weeks 1 Impairment pt lacks HEP Short Term Goal (STG) Pt will be I with written HEP to maximize functional return STG Duration 2 weeks Progress Towards Goals Progress Towards Goals Progressing Toward Goals Assessment Summary Assessment Pierce is a 70 yo male referred to therapy for his knee pain L worse than R. He describes sensation of giving way is most problematic. He reports a cva with L sided deficits a while ago he has increased plantarflexor tone with AMB, difficulty clearing L foot and quad weakness on L. He uses quad cane on R and has generalized weakness in LE . He will require skilled therapy to improve gait pattern, reduce fall risk, increase LE strength to return to MOD I within the community . Physical Therapy Plan Frequency and Duration Frequency of Treatment 1-2x/week Duration of Treatment 6weeks Plan of Care Start Date 10/16/20 Plan of Care End Date 11/27/20 Therapeutic Interventions Therapeutic Interventions Gait Training,Home Exercise Program,Manual Therapy, Neuromuscular Re-education, Therapeutic Exercises Next Visit Focus/Plan Next Note Type Treatment Note Next Visit Plan assess HEP performance, add Leg press, gastroc stretching, balance training Plan of Care Dates Plan of Care Start Date 10/16/20 Plan of Care End Date 11/27/20 Electronically Signed by: Omar Herzog, PT 10/16/20 2951 Please Sign and Return: I have reviewed this Plan of Care and certify that the skilled therapy services above are required to meet the patient?s needs. Physician Signature Date Printed Name and Credentials Clinical Instructor Signature Printed Name and Credentials
--- NOTE | 2020-10-19 12:59 | PT.OTN ---
Current Diagnoses Bilateral primary osteoarthritis of knee (10/19/20) Physical Therapy Treatment Note PT-OP-B Current Condition Start: 10/16/20 13:00 Freq: Status: Active Protocol: Document 10/16/20 13:07 OF (Rec: 10/16/20 13:31 OF [id number]) Current Condition History of Current Condition Onset Date ~3yrs prior History of Current Condition Pt states he has had knee pain for at least 3 years, and had a CVA with L sided deficits. He is unsure of timeframe containing CVA, pacemaker placement, LE weakness and pain. Treatment Goals Patient/Caregiver Goals Make my knees stronger Prior Functional Status Baseline Function- ADL's Modified Independent Baseline Function- Mobility Modified Independent Baseline Function- Other Pt has limited endurance walking and performing activities due to L LE weakness PT-OP-C Subjective Start: 10/16/20 13:00 Freq: Status: Active Protocol: Document 10/19/20 12:54 OF (Rec: 10/19/20 12:58 OF [id number]) OP-PT Subjective Patient Comments Patient Comments Pt states he has DC heel lifts due to pain in R great toe Patient Reported Progress Same OP-PT Pain Assessment Pain Assessment Grid Paper Pain Assessment Grid Completed No: pt denies pain during TX PT-OP-E Functional Tests Start: 10/16/20 13:00 Freq: Status: Active Protocol: Document 10/16/20 13:07 OF (Rec: 10/16/20 13:31 OF [id number]) Functional Tests Five Times Sit to Stand Test Score 0 Comments unable without UE assist PT-OP-G Mobility & Gait Start: 10/16/20 13:00 Freq: Status: Active Protocol: Document 10/16/20 13:07 OF (Rec: 10/16/20 13:31 OF [id number]) OP Gait Assessment Assistive Devices Assistive Device Small Based Quad Cane Gait Deviations General Gait Pattern Antalgic,Decreased Stride Length Comments Gait Comments poor foot clearance on L, increased tone in L UE with dual tasking PT-OP-K Range of Motion Start: 10/16/20 13:00 Freq: Status: Active Protocol: Document 10/16/20 13:07 OF (Rec: 10/16/20 13:31 OF [id number]) Knee Goniometric Range of Motion Knee Right Knee ROM WFL Yes Left Knee ROM WFL Yes Ankle and Foot Goniometric Range of Motion Ankle and Foot Left Active Ankle/Foot ROM WFL No Dorsiflexion with Knee Flexed 10 Dorsiflexion with Knee Extended 5 Comments poor foot clearance with AMB Toe Range of Motion Toes ROM Limitations Comments 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 PT-OP-Q Treatments Start: 10/16/20 13:00 Freq: Status: Active Protocol: Document 10/19/20 12:54 OF (Rec: 10/19/20 12:58 OF [id number]) Cardio Equipment Recumbent Elliptical (Biodex) Duration (Minutes) 10 Resistance 1 Other pt requires extended rest after 5min due to fatigue Therapeutic Exercises Sitting Exercises LAQ Side bilateral Reps/Minutes 3x10 gastroc stretch Side left Reps/Minutes [id number] Standing Exercises sit to stand Side bilateral Reps/Minutes 3x5 Comments cues for eccentric control and weightshifting Gait Training Gait Activity gait in // bars Description gait with occasional UE support on // bars Level of Assistance MIN Surface firm Treatment Focus ankle DF, knee ROM, step length, heel strike and push off Comments 8 min gait with quad cane Device Used quad cane Level of Assistance SBA Surface level Distance/Duration 185' Treatment Focus improved pushoff for clearance of left LE Neuro Re-Education Treatment Coordination Activities toe tapping on cones Details toe tapping on step Equipment // bars Reps/Duration 3x1min Self-Care/Home Management Treatment Education Patient Education Home Exercise Program PT-OP-T Assessment and Plan Start: 10/16/20 13:00 Freq: Status: Active Protocol: Document 10/19/20 12:54 OF (Rec: 10/19/20 12:58 OF [id number]) Physical Therapy Assessment Rehab Potential Rehabilitation Potential Excellent Evaluation Complexity Number of Personal Factors/Comorbidities 1-2 Number of Body Systems Impaired 1-2 Clinical Presentation at Evaluation Stable Impairments Impairments Gait,Strength,Tone Goals 3 Impairment poor L sided ankle ROM Short Term Goal (STG) pt will improve dorsiflexion to 10 with knee ext to improve gait kinematics STG Duration 2 weeks Jail Goal (LTG) Pt will improve L ankle dorsiflexion to 15 to improve I with AMB and stairs 2 Impairment LE weakness Short Term Goal (STG) Pt will perform 5 sit to stands with UE assist to improve functional mobility and LE strength STG Duration 2 weeks Commutator Tester Goal (LTG) Pt will complete 12 sit to stands in 30 sec to demonstrate improved community mobility LTG Duration 6 weeks 1 Impairment pt lacks HEP Short Term Goal (STG) Pt will be I with written HEP to maximize functional return STG Duration 2 weeks Progress Towards Goals Progress Towards Goals Progressing Toward Goals Assessment Summary Assessment Pierce states he is unable to perform heel lifts, HEP modified. He has difficulty clearing L LE due to tone in L plantarflexors, agreeable to bringing AFO for next tx Physical Therapy Plan Next Visit Focus/Plan Next Note Type Treatment Note Next Visit Plan assess HEp, progress LE strengthening
--- NOTE | 2020-10-22 13:00 | PT.OTN ---
Current Diagnoses Bilateral primary osteoarthritis of knee (10/22/20) Physical Therapy Treatment Note PT-OP-A Visit Information Start: 10/16/20 13:00 Freq: Status: Active Protocol: Document 10/22/20 12:55 OF (Rec: 10/22/20 13:00 OF [id number]) Out-Patient Physical Therapy Visit Information Visit Information Visit Type Treatment Note Visit Start Time 11:15 Visit Stop Time 11:55 Total Visit Minutes 40 Precautions Precautions upcoming hand surgery 2 weeks inactivity ordered by my surgeon per pt PT-OP-B Current Condition Start: 10/16/20 13:00 Freq: Status: Active Protocol: Document 10/16/20 13:07 OF (Rec: 10/16/20 13:31 OF [id number]) Current Condition History of Current Condition Onset Date ~3yrs prior History of Current Condition Pt states he has had knee pain for at least 3 years, and had a CVA with L sided deficits. He is unsure of timeframe containing CVA, pacemaker placement, LE weakness and pain. Treatment Goals Patient/Caregiver Goals Make my knees stronger Prior Functional Status Baseline Function- ADL's Modified Independent Baseline Function- Mobility Modified Independent Baseline Function- Other Pt has limited endurance walking and performing activities due to L LE weakness PT-OP-C Subjective Start: 10/16/20 13:00 Freq: Status: Active Protocol: Document 10/22/20 12:55 OF (Rec: 10/22/20 13:00 OF [id number]) OP-PT Subjective Patient Comments Patient Comments pt states he was tired 2 days ago, took off yesterday, no HEP since last visit Patient Reported Progress Same OP-PT Pain Assessment Pain Assessment Grid Paper Pain Assessment Grid Completed No: pt denies pain today PT-OP-E Functional Tests Start: 10/16/20 13:00 Freq: Status: Active Protocol: Document 10/16/20 13:07 OF (Rec: 10/16/20 13:31 OF [id number]) Functional Tests Five Times Sit to Stand Test Score 0 Comments unable without UE assist PT-OP-G Mobility & Gait Start: 10/16/20 13:00 Freq: Status: Active Protocol: Document 10/16/20 13:07 OF (Rec: 10/16/20 13:31 OF [id number]) OP Gait Assessment Assistive Devices Assistive Device Small Based Quad Cane Gait Deviations General Gait Pattern Antalgic,Decreased Stride Length Comments Gait Comments poor foot clearance on L, increased tone in L UE with dual tasking PT-OP-K Range of Motion Start: 10/16/20 13:00 Freq: Status: Active Protocol: Document 10/16/20 13:07 OF (Rec: 10/16/20 13:31 OF [id number]) Knee Goniometric Range of Motion Knee Right Knee ROM WFL Yes Left Knee ROM WFL Yes Ankle and Foot Goniometric Range of Motion Ankle and Foot Left Active Ankle/Foot ROM WFL No Dorsiflexion with Knee Flexed 10 Dorsiflexion with Knee Extended 5 Comments poor foot clearance with AMB Toe Range of Motion Toes ROM Limitations Comments 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 PT-OP-Q Treatments Start: 10/16/20 13:00 Freq: Status: Active Protocol: Document 10/22/20 12:55 OF (Rec: 10/22/20 13:00 OF [id number]) Cardio Equipment Recumbent Elliptical (Biodex) Duration (Minutes) 5 Resistance 1 Other pt declines second 5 min bout Gym Equipment Shuttle Balance 1 Details Red Reps/Duration 10min Comments A/P- DL EO and semi-tandem, lateral WBOS and balance, difficulty with righting reactions Therapeutic Exercises Sitting Exercises knee extension Side bilateral Resistance 3plates Reps/Minutes 3x8 Comments cues for isngle leg extension, alternating LAQ Side bilateral Reps/Minutes 3x10 gastroc stretch Side left Reps/Minutes [id number] Standing Exercises sit to stand Side bilateral Reps/Minutes 3x5 Comments cues for eccentric control and weightshifting. Pt states he is fatigued Self-Care/Home Management Treatment Education Patient Education Home Exercise Program PT-OP-T Assessment and Plan Start: 10/16/20 13:00 Freq: Status: Active Protocol: Document 10/22/20 12:55 OF (Rec: 10/22/20 13:00 OF [id number]) Physical Therapy Assessment Rehab Potential Rehabilitation Potential Good Evaluation Complexity Number of Personal Factors/Comorbidities 1-2 Number of Body Systems Impaired 1-2 Goals 3 Impairment poor L sided ankle ROM Short Term Goal (STG) pt will improve dorsiflexion to 10 with knee ext to improve gait kinematics STG Duration 2 weeks Fdc Goal (LTG) Pt will improve L ankle dorsiflexion to 15 to improve I with AMB and stairs Progress Towards Goals Progress Towards Goals Progressing Toward Goals Assessment Summary Assessment Pierce has limited tolerance for activity today, he denies HEP performance. He will require continued intervention to improve quad strength, offload knees, and improve L sided pushoff Physical Therapy Plan Therapeutic Interventions Therapeutic Interventions Gait Training,Home Exercise Program,Manual Therapy, Neuromuscular Re-education, Therapeutic Exercises Next Visit Focus/Plan Next Note Type Treatment Note Next Visit Plan assess HEP performance, progress LE strengthening and increase quad strengthening activity
--- NOTE | 2020-11-07 13:55 | PT.OTN ---
Current Diagnoses Bilateral primary osteoarthritis of knee (11/07/20) Physical Therapy Treatment Note PT-OP-A Visit Information Start: 10/16/20 13:00 Freq: Status: Active Protocol: Document 11/07/20 13:46 OF (Rec: 11/07/20 13:55 OF [email or web address]) Out-Patient Physical Therapy Visit Information Visit Information Visit Type Treatment Note Visit Start Time 13:05 Visit Stop Time 13:45 Total Visit Minutes 40 Precautions Precautions prior cva with L sided deficits PT-OP-B Current Condition Start: 10/16/20 13:00 Freq: Status: Active Protocol: Document 10/16/20 13:07 OF (Rec: 10/16/20 13:31 OF [id number]) Current Condition History of Current Condition Onset Date ~3yrs prior History of Current Condition Pt states he has had knee pain for at least 3 years, and had a CVA with L sided deficits. He is unsure of timeframe containing CVA, pacemaker placement, LE weakness and pain. Treatment Goals Patient/Caregiver Goals Make my knees stronger Prior Functional Status Baseline Function- ADL's Modified Independent Baseline Function- Mobility Modified Independent Baseline Function- Other Pt has limited endurance walking and performing activities due to L LE weakness PT-OP-C Subjective Start: 10/16/20 13:00 Freq: Status: Active Protocol: Document 11/07/20 13:46 OF (Rec: 11/07/20 13:55 OF [email or web address]) OP-PT Subjective Patient Comments Patient Comments Pt reports no HEP since last tx, he denies using AFO, states he does not want to bring AFO due to it being clunky Patient Reported Progress Same OP-PT Pain Assessment Location L knee Pain Location Details medial joint line Intensity 1 Scale Used Numeric (0 - 10) Description Aching,Burning Frequency Frequent Pain Aggravating Factors ADL's,Activity,Exercise, Walking,Swallowing PT-OP-E Functional Tests Start: 10/16/20 13:00 Freq: Status: Active Protocol: Document 10/16/20 13:07 OF (Rec: 10/16/20 13:31 OF [id number]) Functional Tests Five Times Sit to Stand Test Score 0 Comments unable without UE assist PT-OP-G Mobility & Gait Start: 10/16/20 13:00 Freq: Status: Active Protocol: Document 10/16/20 13:07 OF (Rec: 10/16/20 13:31 OF [id number]) OP Gait Assessment Assistive Devices Assistive Device Small Based Quad Cane Gait Deviations General Gait Pattern Antalgic,Decreased Stride Length Comments Gait Comments poor foot clearance on L, increased tone in L UE with dual tasking PT-OP-K Range of Motion Start: 10/16/20 13:00 Freq: Status: Active Protocol: Document 10/16/20 13:07 OF (Rec: 10/16/20 13:31 OF [id number]) Knee Goniometric Range of Motion Knee Right Knee ROM WFL Yes Left Knee ROM WFL Yes Ankle and Foot Goniometric Range of Motion Ankle and Foot Left Active Ankle/Foot ROM WFL No Dorsiflexion with Knee Flexed 10 Dorsiflexion with Knee Extended 5 Comments poor foot clearance with AMB Toe Range of Motion Toes ROM Limitations Comments 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 PT-OP-Q Treatments Start: 10/16/20 13:00 Freq: Status: Active Protocol: Document 11/07/20 13:46 OF (Rec: 11/07/20 13:55 OF [email or web address]) Cardio Equipment Recumbent Elliptical (Biodex) Duration (Minutes) 10 Resistance 1 Other pt requires rest between bouts , has difficulty following instructions for L Therapeutic Exercises Sitting Exercises knee extension Side bilateral Resistance 2plates Reps/Minutes 3x10, cues for rest between bouts LAQ Side bilateral Reps/Minutes 3x10 Comments cues for proper seated position for HEP gastroc stretch Side left Equipment Used gait belt for seated Reps/Minutes [id number] Standing Exercises sit to stand Side bilateral Reps/Minutes 3x5 Comments pt has difficulty with sit to stand to clear hips x5 Gait Training Gait Activity gait with quad cane Device Used quad cane Level of Assistance SBA Surface level Distance/Duration 50x4 Treatment Focus poor ALBERT awareness, requires assist for LOB. He refuses to attempt AFO Self-Care/Home Management Treatment Education Patient Education Home Exercise Program Other Education Pt educated upon need for adhering to surgeons orders for incision care to R hand. He requires total redirection for HEP today, states he does not perform at home PT-OP-T Assessment and Plan Start: 10/16/20 13:00 Freq: Status: Active Protocol: Document 11/07/20 13:46 OF (Rec: 11/07/20 13:55 OF [email or web address]) Physical Therapy Assessment Rehab Potential Rehabilitation Potential Fair Evaluation Complexity Number of Personal Factors/Comorbidities 1-2 Number of Body Systems Impaired 1-2 Clinical Presentation at Evaluation Stable Impairments Impairments Gait,Strength,Tone Other Concerns Barriers to Rehabilitation non adherance with HEP, refusal to utilize HEP Goals 3 Impairment poor L sided ankle ROM Short Term Goal (STG) pt will improve dorsiflexion to 10 with knee ext to improve gait kinematics STG Duration 2 weeks Sample Color Maker Goal (LTG) Pt will improve L ankle dorsiflexion to 15 to improve I with AMB and stairs 2 Impairment LE weakness Short Term Goal (STG) Pt will perform 5 sit to stands with UE assist to improve functional mobility and LE strength STG Duration 2 weeks Nursing Home Goal (LTG) Pt will complete 12 sit to stands in 30 sec to demonstrate improved community mobility LTG Duration 6 weeks 1 Impairment pt lacks HEP Short Term Goal (STG) Pt will be I with written HEP to maximize functional return STG Duration 2 weeks Progress Towards Goals Progress Towards Goals Slow Progress due to Medical Issues,Slow Progress due to Noncompliance Assessment Summary Assessment Pierce has had difficulty performing HEP as instructed, he does not wish to use AFO and remains a high fall risk due to this. Physical Therapy Plan Frequency and Duration Frequency of Treatment 1-2x/week Duration of Treatment 6weeks Plan of Care Start Date 10/16/20 Plan of Care End Date 11/27/20 Therapeutic Interventions Therapeutic Interventions Gait Training,Home Exercise Program,Manual Therapy, Neuromuscular Re-education, Therapeutic Exercises Next Visit Focus/Plan Next Note Type Treatment Note Next Visit Plan re educated upon HEP performance, progress LE strengthening and increase quad strengthening activity
--- NOTE | 2020-11-09 14:30 | PT.OTN ---
Current Diagnoses Bilateral primary osteoarthritis of knee (11/09/20) Physical Therapy Treatment Note PT-OP-A Visit Information Start: 10/16/20 13:00 Freq: Status: Active Protocol: Document 11/09/20 13:46 OF (Rec: 11/09/20 14:30 OF [email or web address]) Out-Patient Physical Therapy Visit Information Visit Information Visit Start Time 13:05 Visit Stop Time 13:46 Total Visit Minutes 41 Precautions Precautions prior cva with L sided deficits PT-OP-B Current Condition Start: 10/16/20 13:00 Freq: Status: Active Protocol: Document 10/16/20 13:07 OF (Rec: 10/16/20 13:31 OF [id number]) Current Condition History of Current Condition Onset Date ~3yrs prior History of Current Condition Pt states he has had knee pain for at least 3 years, and had a CVA with L sided deficits. He is unsure of timeframe containing CVA, pacemaker placement, LE weakness and pain. Treatment Goals Patient/Caregiver Goals Make my knees stronger Prior Functional Status Baseline Function- ADL's Modified Independent Baseline Function- Mobility Modified Independent Baseline Function- Other Pt has limited endurance walking and performing activities due to L LE weakness PT-OP-C Subjective Start: 10/16/20 13:00 Freq: Status: Active Protocol: Document 11/09/20 13:46 OF (Rec: 11/09/20 14:30 OF [email or web address]) OP-PT Subjective Patient Comments Patient Comments pt states he has not been performing HEP, but I did do the stairs Patient Reported Progress Same OP-PT Pain Assessment Pain Assessment Grid Paper Pain Assessment Grid Completed No Location L knee Pain Location Details 4 Intensity 4 Scale Used Numeric (0 - 10) Description Aching,Burning Pain Alleviating Factors Inactivity PT-OP-E Functional Tests Start: 10/16/20 13:00 Freq: Status: Active Protocol: Document 10/16/20 13:07 OF (Rec: 10/16/20 13:31 OF [id number]) Functional Tests Five Times Sit to Stand Test Score 0 Comments unable without UE assist PT-OP-G Mobility & Gait Start: 10/16/20 13:00 Freq: Status: Active Protocol: Document 10/16/20 13:07 OF (Rec: 10/16/20 13:31 OF [id number]) OP Gait Assessment Assistive Devices Assistive Device Small Based Quad Cane Gait Deviations General Gait Pattern Antalgic,Decreased Stride Length Comments Gait Comments poor foot clearance on L, increased tone in L UE with dual tasking PT-OP-K Range of Motion Start: 10/16/20 13:00 Freq: Status: Active Protocol: Document 10/16/20 13:07 OF (Rec: 10/16/20 13:31 OF [id number]) Knee Goniometric Range of Motion Knee Right Knee ROM WFL Yes Left Knee ROM WFL Yes Ankle and Foot Goniometric Range of Motion Ankle and Foot Left Active Ankle/Foot ROM WFL No Dorsiflexion with Knee Flexed 10 Dorsiflexion with Knee Extended 5 Comments poor foot clearance with AMB Toe Range of Motion Toes ROM Limitations Comments 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 PT-OP-Q Treatments Start: 10/16/20 13:00 Freq: Status: Active Protocol: Document 11/09/20 13:46 OF (Rec: 11/09/20 14:30 OF [email or web address]) Cardio Equipment Recumbent Elliptical (Biodex) Duration (Minutes) 10 Resistance 1 Other pt performs without rest Gym Equipment Shuttle Balance 1 Details Red Reps/Duration 10min Comments A/P UE support required for proper righting self Therapeutic Exercises Sitting Exercises knee extension Side bilateral Resistance 2plates Reps/Minutes 3x10, cues for rest between bouts LAQ Side bilateral Resistance 5# Reps/Minutes 3x10 Comments cues for proper seated position for HEP gastroc stretch Side left Equipment Used gait belt for seated Reps/Minutes [id number] Comments re educated for HEP Standing Exercises sit to stand Side bilateral Reps/Minutes 3x5 Comments pt has difficulty with sit to stand to clear hips without UE assist Gait Training Gait Activity gait in // bars Description gait with occasional UE support on // bars, quad cane Level of Assistance MIN Surface firm Treatment Focus cues for increased L sided foot clearance Comments 10 Neuro Re-Education Treatment Balance Activities SLS Details single leg stance Surface firm Comments 2x30 sec with occasional UE assist Coordination Activities toe tapping on cones Details toe tapping on step Equipment // bars Reps/Duration 3x1min Self-Care/Home Management Treatment Education Patient Education Home Exercise Program Other Education pt re educated upon need for HEP to see functional gains PT-OP-T Assessment and Plan Start: 10/16/20 13:00 Freq: Status: Active Protocol: Document 11/09/20 13:46 OF (Rec: 11/09/20 14:30 OF [email or web address]) Physical Therapy Assessment Rehab Potential Rehabilitation Potential Good Evaluation Complexity Number of Personal Factors/Comorbidities 1-2 Number of Body Systems Impaired 1-2 Clinical Presentation at Evaluation Stable Impairments Impairments Gait,Strength,Tone Other Concerns Barriers to Rehabilitation non adherance with HEP, refusal to utilize HEP Goals 3 Impairment poor L sided ankle ROM Short Term Goal (STG) pt will improve dorsiflexion to 10 with knee ext to improve gait kinematics STG Duration 2 weeks Alf Goal (LTG) Pt will improve L ankle dorsiflexion to 15 to improve I with AMB and stairs 2 Impairment LE weakness Short Term Goal (STG) Pt will perform 5 sit to stands with UE assist to improve functional mobility and LE strength STG Duration 2 weeks Alf Goal (LTG) Pt will complete 12 sit to stands in 30 sec to demonstrate improved community mobility LTG Duration 6 weeks 1 Impairment pt lacks HEP Short Term Goal (STG) Pt will be I with written HEP to maximize functional return STG Duration 2 weeks Progress Towards Goals Progress Towards Goals Slow Progress due to Noncompliance Assessment Summary Assessment Pierce has not performed HEP as instructed, he declines to use AFO, and states he does not like quad cane. He has been educated upon his fall risk and need for quad cane to reduce fall risk. Physical Therapy Plan Frequency and Duration Frequency of Treatment 1-2x/week Duration of Treatment 6weeks Plan of Care Start Date 10/16/20 Plan of Care End Date 11/27/20 Therapeutic Interventions Therapeutic Interventions Gait Training,Home Exercise Program,Manual Therapy, Neuromuscular Re-education, Therapeutic Exercises Next Visit Focus/Plan Next Note Type Treatment Note Next Visit Plan progress LE strengthening, gait training with quad cane, balance training
--- NOTE | 2020-11-13 16:09 | PT.OTN ---
Current Diagnoses Bilateral primary osteoarthritis of knee (11/13/20) Physical Therapy Treatment Note PT-OP-A Visit Information Start: 10/16/20 13:00 Freq: Status: Active Protocol: Document 11/13/20 16:02 OF (Rec: 11/13/20 16:09 OF [id number]) Out-Patient Physical Therapy Visit Information Visit Information Visit Type Treatment Note Visit Start Time 13:01 Visit Stop Time 13:43 Total Visit Minutes 42 Precautions Precautions prior cva with L sided deficits PT-OP-B Current Condition Start: 10/16/20 13:00 Freq: Status: Active Protocol: Document 10/16/20 13:07 OF (Rec: 10/16/20 13:31 OF [id number]) Current Condition History of Current Condition Onset Date ~3yrs prior History of Current Condition Pt states he has had knee pain for at least 3 years, and had a CVA with L sided deficits. He is unsure of timeframe containing CVA, pacemaker placement, LE weakness and pain. Treatment Goals Patient/Caregiver Goals Make my knees stronger Prior Functional Status Baseline Function- ADL's Modified Independent Baseline Function- Mobility Modified Independent Baseline Function- Other Pt has limited endurance walking and performing activities due to L LE weakness PT-OP-C Subjective Start: 10/16/20 13:00 Freq: Status: Active Protocol: Document 11/13/20 16:02 OF (Rec: 11/13/20 16:09 OF [id number]) OP-PT Subjective Patient Comments Patient Comments pt states he performed portions of HEP this AM Patient Reported Progress Same OP-PT Pain Assessment Location L knee Pain Location Details 2 Intensity 2 Scale Used Numeric (0 - 10) Description Aching,Burning Pain Alleviating Factors Inactivity PT-OP-E Functional Tests Start: 10/16/20 13:00 Freq: Status: Active Protocol: Document 10/16/20 13:07 OF (Rec: 10/16/20 13:31 OF [id number]) Functional Tests Five Times Sit to Stand Test Score 0 Comments unable without UE assist PT-OP-G Mobility & Gait Start: 10/16/20 13:00 Freq: Status: Active Protocol: Document 10/16/20 13:07 OF (Rec: 10/16/20 13:31 OF [id number]) OP Gait Assessment Assistive Devices Assistive Device Small Based Quad Cane Gait Deviations General Gait Pattern Antalgic,Decreased Stride Length Comments Gait Comments poor foot clearance on L, increased tone in L UE with dual tasking PT-OP-K Range of Motion Start: 10/16/20 13:00 Freq: Status: Active Protocol: Document 10/16/20 13:07 OF (Rec: 10/16/20 13:31 OF [id number]) Knee Goniometric Range of Motion Knee Right Knee ROM WFL Yes Left Knee ROM WFL Yes Ankle and Foot Goniometric Range of Motion Ankle and Foot Left Active Ankle/Foot ROM WFL No Dorsiflexion with Knee Flexed 10 Dorsiflexion with Knee Extended 5 Comments poor foot clearance with AMB Toe Range of Motion Toes ROM Limitations Comments 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 PT-OP-Q Treatments Start: 10/16/20 13:00 Freq: Status: Active Protocol: Document 11/13/20 16:02 OF (Rec: 11/13/20 16:09 OF [id number]) Cardio Equipment Recumbent Elliptical (Biodex) Duration (Minutes) 10 Resistance 1 Other pt performs without rest, cues for L LE attention Gym Equipment Cable Column (Body Solid) Leg Extension Resistance 2plates single LE Reps/Time 2x10 each Shuttle Balance 1 Details Red Reps/Duration 10min Comments A/P and lateral weightshifting UE support required for proper righting self Therapeutic Exercises Sitting Exercises knee extension Side bilateral Resistance 2plates Reps/Minutes 3x10, cues for rest between bouts LAQ Side bilateral Resistance 5# Reps/Minutes 3x10 Comments cues for proper seated position for HEP gastroc stretch Side left Equipment Used standing on NATY with knee extended and knee bent Reps/Minutes [id number] Comments re educated for HEP Standing Exercises sit to stand Side bilateral Reps/Minutes 2x5 Comments pt has difficulty with sit to stand to clear hips without UE assist Gait Training Gait Activity gait with quad cane Device Used quad cane Level of Assistance SBA Surface level Distance/Duration 50x4 Treatment Focus pushoff on L, foot clearance on L, widening ALBERT Self-Care/Home Management Treatment Education Patient Education Home Exercise Program Other Education pt re educated upon need for HEP to see functional gains, cues for proper pushoff with AMB, benefit of AFO to improve foot clearance PT-OP-T Assessment and Plan Start: 10/16/20 13:00 Freq: Status: Active Protocol: Document 11/13/20 16:02 OF (Rec: 11/13/20 16:09 OF [id number]) Physical Therapy Assessment Rehab Potential Rehabilitation Potential Good Evaluation Complexity Number of Personal Factors/Comorbidities 1-2 Number of Body Systems Impaired 1-2 Clinical Presentation at Evaluation Stable Impairments Impairments Gait,Strength,Tone Goals 3 Impairment poor L sided ankle ROM Short Term Goal (STG) pt will improve dorsiflexion to 10 with knee ext to improve gait kinematics STG Duration 2 weeks Electrical Mechanic Goal (LTG) Pt will improve L ankle dorsiflexion to 15 to improve I with AMB and stairs 2 Impairment LE weakness Short Term Goal (STG) Pt will perform 5 sit to stands with UE assist to improve functional mobility and LE strength STG Duration 2 weeks [facility] Goal (LTG) Pt will complete 12 sit to stands in 30 sec to demonstrate improved community mobility LTG Duration 6 weeks 1 Impairment pt lacks HEP Short Term Goal (STG) Pt will be I with written HEP to maximize functional return STG Duration 2 weeks Progress Towards Goals Progress Towards Goals Slow Progress due to Noncompliance Assessment Summary Assessment Pierce reports HEP performance, but has difficulty demonstrating. He has limited activity tolerance and is reluctant to use AFO with AMB to reduce fall risk. Physical Therapy Plan Frequency and Duration Frequency of Treatment 1-2x/week Duration of Treatment 6weeks Plan of Care Start Date 10/16/20 Plan of Care End Date 11/27/20 Therapeutic Interventions Therapeutic Interventions Gait Training,Home Exercise Program,Manual Therapy, Neuromuscular Re-education, Therapeutic Exercises Next Visit Focus/Plan Next Note Type Treatment Note Next Visit Plan progress L LE strengthening, proprioception. Increase gait distance without undue use of cane
--- NOTE | 2020-11-16 15:15 | PT.OTN ---
Current Diagnoses Bilateral primary osteoarthritis of knee (11/16/20) Physical Therapy Treatment Note PT-OP-A Visit Information Start: 10/16/20 13:00 Freq: Status: Active Protocol: Document 11/16/20 14:30 DCW (Rec: 11/16/20 15:15 DCW [id number]) Out-Patient Physical Therapy Visit Information Visit Information Visit Type Treatment Note Visit Start Time 14:30 Visit Stop Time 15:15 Total Visit Minutes 45 Visit Number 7 Number of CREDIT CONTROL OFFICER Visits 0 PT-OP-B Current Condition Start: 10/16/20 13:00 Freq: Status: Active Protocol: Document 10/16/20 13:07 OF (Rec: 10/16/20 13:31 OF [id number]) Current Condition History of Current Condition Onset Date ~3yrs prior History of Current Condition Pt states he has had knee pain for at least 3 years, and had a CVA with L sided deficits. He is unsure of timeframe containing CVA, pacemaker placement, LE weakness and pain. Treatment Goals Patient/Caregiver Goals Make my knees stronger Prior Functional Status Baseline Function- ADL's Modified Independent Baseline Function- Mobility Modified Independent Baseline Function- Other Pt has limited endurance walking and performing activities due to L LE weakness PT-OP-C Subjective Start: 10/16/20 13:00 Freq: Status: Active Protocol: Document 11/16/20 14:30 DCW (Rec: 11/16/20 15:15 DCW [id number]) OP-PT Subjective Patient Comments Patient Comments Pt complains that his heel raises have started hurting his left great toe. Admits he could be putting more effort into his home exercises. PT-OP-E Functional Tests Start: 10/16/20 13:00 Freq: Status: Active Protocol: Document 10/16/20 13:07 OF (Rec: 10/16/20 13:31 OF [id number]) Functional Tests Five Times Sit to Stand Test Score 0 Comments unable without UE assist PT-OP-G Mobility & Gait Start: 10/16/20 13:00 Freq: Status: Active Protocol: Document 10/16/20 13:07 OF (Rec: 10/16/20 13:31 OF [id number]) OP Gait Assessment Assistive Devices Assistive Device Small Based Quad Cane Gait Deviations General Gait Pattern Antalgic,Decreased Stride Length Comments Gait Comments poor foot clearance on L, increased tone in L UE with dual tasking PT-OP-K Range of Motion Start: 10/16/20 13:00 Freq: Status: Active Protocol: Document 10/16/20 13:07 OF (Rec: 10/16/20 13:31 OF [id number]) Knee Goniometric Range of Motion Knee Right Knee ROM WFL Yes Left Knee ROM WFL Yes Ankle and Foot Goniometric Range of Motion Ankle and Foot Left Active Ankle/Foot ROM WFL No Dorsiflexion with Knee Flexed 10 Dorsiflexion with Knee Extended 5 Comments poor foot clearance with AMB Toe Range of Motion Toes ROM Limitations Comments 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 PT-OP-Q Treatments Start: 10/16/20 13:00 Freq: Status: Active Protocol: Document 11/16/20 14:30 DCW (Rec: 11/16/20 15:15 DCW [id number]) Cardio Equipment Recumbent Elliptical (Biodex) Duration (Minutes) 8 Resistance 1 Other pt performs without rest, cues for L LE attention Gym Equipment Cable Column (Body Solid) Leg Extension Resistance 20# Reps/Time 2x10 Shuttle Recovery Unilateral Squats Resistance 50 Shuttle Recovery Platform Stable Reps/Time x15 Bilateral Squats Resistance 100# Shuttle Recovery Platform Stable Reps/Time x15 Shuttle Balance 1 Details Red Reps/Duration 10min Comments A/P and lateral weightshifting Therapeutic Exercises Sitting Exercises LAQ Side bilateral Resistance 10# Reps/Minutes 3x10 Comments cues for proper seated position for HEP Standing Exercises TKE Standing Exercise Name TKE Side bilateral Resistance Lv 3 Equipment Used T-band PT-OP-T Assessment and Plan Start: 10/16/20 13:00 Freq: Status: Active Protocol: Document 11/16/20 14:30 DCW (Rec: 11/16/20 15:15 DCW [id number]) Physical Therapy Assessment Impairments Impairments Gait,Strength,Tone Other Concerns Barriers to Rehabilitation non adherance with HEP, refusal to utilize HEP Goals 3 Impairment poor L sided ankle ROM Short Term Goal (STG) pt will improve dorsiflexion to 10 with knee ext to improve gait kinematics STG Duration 2 weeks Long-Term Goal (LTG) Pt will improve L ankle dorsiflexion to 15 to improve I with AMB and stairs 2 Impairment LE weakness Short Term Goal (STG) Pt will perform 5 sit to stands with UE assist to improve functional mobility and LE strength STG Duration 2 weeks Long-Term Goal (LTG) Pt will complete 12 sit to stands in 30 sec to demonstrate improved community mobility LTG Duration 6 weeks 1 Impairment pt lacks HEP Short Term Goal (STG) Pt will be I with written HEP to maximize functional return STG Duration 2 weeks Assessment Summary Assessment Pt shows some fatigue with most activity, needed to stop a couple of times to rest, but overall tolerated well. Physical Therapy Plan Frequency and Duration Frequency of Treatment 1-2x/week Duration of Treatment 6weeks Plan of Care Start Date 10/16/20 Plan of Care End Date 11/27/20 Therapeutic Interventions Therapeutic Interventions Gait Training,Home Exercise Program,Manual Therapy, Neuromuscular Re-education, Therapeutic Exercises Next Visit Focus/Plan Next Note Type Treatment Note Next Visit Plan progress L LE strengthening, proprioception. Increase gait distance without undue use of cane
--- NOTE | 2020-11-21 16:22 | PT.OTN ---
Current Diagnoses Bilateral primary osteoarthritis of knee (11/21/20) Physical Therapy Treatment Note PT-OP-A Visit Information Start: 10/16/20 13:00 Freq: Status: Active Protocol: Document 11/21/20 15:19 DCW (Rec: 11/21/20 16:22 DCW [id number]) Out-Patient Physical Therapy Visit Information Visit Information Visit Type Treatment Note Visit Start Time 15:19 Visit Stop Time 16:00 Total Visit Minutes 41 Visit Number 8 Number of SUGAR REFINER Visits 0 Precautions Precautions prior cva with L sided deficits PT-OP-B Current Condition Start: 10/16/20 13:00 Freq: Status: Active Protocol: Document 10/16/20 13:07 OF (Rec: 10/16/20 13:31 OF [id number]) Current Condition History of Current Condition Onset Date ~3yrs prior History of Current Condition Pt states he has had knee pain for at least 3 years, and had a CVA with L sided deficits. He is unsure of timeframe containing CVA, pacemaker placement, LE weakness and pain. Treatment Goals Patient/Caregiver Goals Make my knees stronger Prior Functional Status Baseline Function- ADL's Modified Independent Baseline Function- Mobility Modified Independent Baseline Function- Other Pt has limited endurance walking and performing activities due to L LE weakness PT-OP-C Subjective Start: 10/16/20 13:00 Freq: Status: Active Protocol: Document 11/21/20 15:19 DCW (Rec: 11/21/20 16:22 DCW [id number]) OP-PT Subjective Patient Comments Patient Comments I was really tired after the last workout. I was revitalized the next day, but that faded pretty quickly. PT-OP-E Functional Tests Start: 10/16/20 13:00 Freq: Status: Active Protocol: Document 10/16/20 13:07 OF (Rec: 10/16/20 13:31 OF [id number]) Functional Tests Five Times Sit to Stand Test Score 0 Comments unable without UE assist PT-OP-G Mobility & Gait Start: 10/16/20 13:00 Freq: Status: Active Protocol: Document 10/16/20 13:07 OF (Rec: 10/16/20 13:31 OF [id number]) OP Gait Assessment Assistive Devices Assistive Device Small Based Quad Cane Gait Deviations General Gait Pattern Antalgic,Decreased Stride Length Comments Gait Comments poor foot clearance on L, increased tone in L UE with dual tasking PT-OP-K Range of Motion Start: 10/16/20 13:00 Freq: Status: Active Protocol: Document 10/16/20 13:07 OF (Rec: 10/16/20 13:31 OF [id number]) Knee Goniometric Range of Motion Knee Right Knee ROM WFL Yes Left Knee ROM WFL Yes Ankle and Foot Goniometric Range of Motion Ankle and Foot Left Active Ankle/Foot ROM WFL No Dorsiflexion with Knee Flexed 10 Dorsiflexion with Knee Extended 5 Comments poor foot clearance with AMB Toe Range of Motion Toes ROM Limitations Comments 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 PT-OP-Q Treatments Start: 10/16/20 13:00 Freq: Status: Active Protocol: Document 11/21/20 15:19 DCW (Rec: 11/21/20 16:22 DCW [id number]) Cardio Equipment Recumbent Elliptical (Biodex) Duration (Minutes) 8 Resistance 2 Other LEs only Gym Equipment Cable Column (Body Solid) Leg Extension Details Single leg Resistance 20# Reps/Time 2x10 Shuttle Balance 1 Details Red Reps/Duration 10min Comments A/P and lateral weightshifting Therapeutic Exercises Sitting Exercises LAQ Side bilateral Resistance 10# Reps/Minutes 3x10 Comments cues for proper seated position for HEP Standing Exercises Marching Standing Exercise Name Standing marching Side bilateral Resistance 10# TKE Standing Exercise Name TKE Side bilateral Resistance Lv 3 Equipment Used T-band PT-OP-T Assessment and Plan Start: 10/16/20 13:00 Freq: Status: Active Protocol: Document 11/21/20 15:19 DCW (Rec: 11/21/20 16:22 DCW [id number]) Physical Therapy Assessment Impairments Impairments Gait,Strength,Tone Goals 3 Impairment poor L sided ankle ROM Short Term Goal (STG) pt will improve dorsiflexion to 10 with knee ext to improve gait kinematics STG Duration 2 weeks Inbound Sales Advisor Goal (LTG) Pt will improve L ankle dorsiflexion to 15 to improve I with AMB and stairs 2 Impairment LE weakness Short Term Goal (STG) Pt will perform 5 sit to stands with UE assist to improve functional mobility and LE strength STG Duration 2 weeks Inbound Sales Advisor Goal (LTG) Pt will complete 12 sit to stands in 30 sec to demonstrate improved community mobility LTG Duration 6 weeks 1 Impairment pt lacks HEP Short Term Goal (STG) Pt will be I with written HEP to maximize functional return STG Duration 2 weeks Assessment Summary Assessment Pt more fatigued today, required multiple breaks. Increased L>R LE edema. Physical Therapy Plan Frequency and Duration Frequency of Treatment 1-2x/week Duration of Treatment 6weeks Plan of Care Start Date 10/16/20 Plan of Care End Date 11/27/20 Therapeutic Interventions Therapeutic Interventions Gait Training,Home Exercise Program,Manual Therapy, Neuromuscular Re-education, Therapeutic Exercises Next Visit Focus/Plan Next Note Type Treatment Note Next Visit Plan progress L LE strengthening, proprioception. Increase gait distance without undue use of cane n
--- NOTE | 2020-11-23 15:13 | PT.OTN ---
Current Diagnoses Bilateral primary osteoarthritis of knee (11/23/20) Physical Therapy Treatment Note PT-OP-A Visit Information Start: 10/16/20 13:00 Freq: Status: Active Protocol: Document 11/23/20 14:35 DCW (Rec: 11/23/20 15:12 DCW [id number]) Out-Patient Physical Therapy Visit Information Visit Information Visit Type Treatment Note Visit Start Time 14:35 Visit Stop Time 15:15 Total Visit Minutes 40 Visit Number 9 Number of OIL MIXER Visits 0 Precautions Precautions prior cva with L sided deficits PT-OP-B Current Condition Start: 10/16/20 13:00 Freq: Status: Active Protocol: Document 10/16/20 13:07 OF (Rec: 10/16/20 13:31 OF [id number]) Current Condition History of Current Condition Onset Date ~3yrs prior History of Current Condition Pt states he has had knee pain for at least 3 years, and had a CVA with L sided deficits. He is unsure of timeframe containing CVA, pacemaker placement, LE weakness and pain. Treatment Goals Patient/Caregiver Goals Make my knees stronger Prior Functional Status Baseline Function- ADL's Modified Independent Baseline Function- Mobility Modified Independent Baseline Function- Other Pt has limited endurance walking and performing activities due to L LE weakness PT-OP-C Subjective Start: 10/16/20 13:00 Freq: Status: Active Protocol: Document 11/23/20 14:35 DCW (Rec: 11/23/20 15:12 DCW [id number]) OP-PT Subjective Patient Comments Patient Comments I'm pretty good, but there's room for improvement. PT-OP-E Functional Tests Start: 10/16/20 13:00 Freq: Status: Active Protocol: Document 10/16/20 13:07 OF (Rec: 10/16/20 13:31 OF [id number]) Functional Tests Five Times Sit to Stand Test Score 0 Comments unable without UE assist PT-OP-G Mobility & Gait Start: 10/16/20 13:00 Freq: Status: Active Protocol: Document 10/16/20 13:07 OF (Rec: 10/16/20 13:31 OF [id number]) OP Gait Assessment Assistive Devices Assistive Device Small Based Quad Cane Gait Deviations General Gait Pattern Antalgic,Decreased Stride Length Comments Gait Comments poor foot clearance on L, increased tone in L UE with dual tasking PT-OP-K Range of Motion Start: 10/16/20 13:00 Freq: Status: Active Protocol: Document 10/16/20 13:07 OF (Rec: 10/16/20 13:31 OF [id number]) Knee Goniometric Range of Motion Knee Right Knee ROM WFL Yes Left Knee ROM WFL Yes Ankle and Foot Goniometric Range of Motion Ankle and Foot Left Active Ankle/Foot ROM WFL No Dorsiflexion with Knee Flexed 10 Dorsiflexion with Knee Extended 5 Comments poor foot clearance with AMB Toe Range of Motion Toes ROM Limitations Comments 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 PT-OP-Q Treatments Start: 10/16/20 13:00 Freq: Status: Active Protocol: Document 11/23/20 14:35 DCW (Rec: 11/23/20 15:12 DCW [id number]) Cardio Equipment Recumbent Stepper (Sci-Fit) Duration (Minutes) 8 Resistance 2 Seat Position 16 Other LEs only Gym Equipment Cable Column (Body Solid) Leg Extension Details Single leg Resistance 20# Reps/Time 2x10 Shuttle Recovery Unilateral Squats Resistance 62# Shuttle Recovery Platform Stable Reps/Time x15 Bilateral Squats Resistance 100# Shuttle Recovery Platform Stable Reps/Time x15 Therapeutic Exercises Sitting Exercises LAQ Side bilateral Resistance 10# Reps/Minutes 3x10 Comments cues for proper seated position for HEP Standing Exercises Hamstring Curls Standing Exercise Name HS curls Side bilateral Resistance 10# Marching Standing Exercise Name Standing marching Side bilateral Resistance 10# TKE Standing Exercise Name TKE Side bilateral Resistance Lv 3 Equipment Used T-band PT-OP-T Assessment and Plan Start: 10/16/20 13:00 Freq: Status: Active Protocol: Document 11/23/20 14:35 DCW (Rec: 11/23/20 15:12 DCW [id number]) Physical Therapy Assessment Impairments Impairments Gait,Strength,Tone Goals 3 Impairment poor L sided ankle ROM Short Term Goal (STG) pt will improve dorsiflexion to 10 with knee ext to improve gait kinematics STG Duration 2 weeks Usp Goal (LTG) Pt will improve L ankle dorsiflexion to 15 to improve I with AMB and stairs 2 Impairment LE weakness Short Term Goal (STG) Pt will perform 5 sit to stands with UE assist to improve functional mobility and LE strength STG Duration 2 weeks Hepatology Physician Goal (LTG) Pt will complete 12 sit to stands in 30 sec to demonstrate improved community mobility LTG Duration 6 weeks 1 Impairment pt lacks HEP Short Term Goal (STG) Pt will be I with written HEP to maximize functional return STG Duration 2 weeks Assessment Summary Assessment Pt tolerated slightly more treatment today with fewer rest breaks. Physical Therapy Plan Frequency and Duration Frequency of Treatment 1-2x/week Duration of Treatment 6weeks Plan of Care Start Date 10/16/20 Plan of Care End Date 11/27/20 Therapeutic Interventions Therapeutic Interventions Gait Training,Home Exercise Program,Manual Therapy, Neuromuscular Re-education, Therapeutic Exercises Next Visit Focus/Plan Next Note Type Progress Note Next Visit Plan New POC
--- NOTE | 2020-11-29 12:55 | PT.OTN ---
Current Diagnoses Bilateral primary osteoarthritis of knee (11/29/20) Physical Therapy Treatment Note PT-OP-A Visit Information Start: 10/16/20 13:00 Freq: Status: Active Protocol: Document 11/29/20 12:48 OF (Rec: 11/29/20 12:55 OF [id number]) Out-Patient Physical Therapy Visit Information Visit Information Visit Type Treatment Note Visit Start Time 11:22 Visit Stop Time 12:01 Total Visit Minutes 39 Visit Number 10 Precautions Precautions prior cva with L sided deficits PT-OP-B Current Condition Start: 10/16/20 13:00 Freq: Status: Active Protocol: Document 10/16/20 13:07 OF (Rec: 10/16/20 13:31 OF [id number]) Current Condition History of Current Condition Onset Date ~3yrs prior History of Current Condition Pt states he has had knee pain for at least 3 years, and had a CVA with L sided deficits. He is unsure of timeframe containing CVA, pacemaker placement, LE weakness and pain. Treatment Goals Patient/Caregiver Goals Make my knees stronger Prior Functional Status Baseline Function- ADL's Modified Independent Baseline Function- Mobility Modified Independent Baseline Function- Other Pt has limited endurance walking and performing activities due to L LE weakness PT-OP-C Subjective Start: 10/16/20 13:00 Freq: Status: Active Protocol: Document 11/29/20 12:48 OF (Rec: 11/29/20 12:55 OF [email or web address]) OP-PT Subjective Patient Comments Patient Comments pt states he has performed HEP occasionally Patient Reported Progress Improving OP-PT Pain Assessment Pain Assessment Grid Paper Pain Assessment Grid Completed No: pt denies pain during tx PT-OP-E Functional Tests Start: 10/16/20 13:00 Freq: Status: Active Protocol: Document 10/16/20 13:07 OF (Rec: 10/16/20 13:31 OF [id number]) Functional Tests Five Times Sit to Stand Test Score 0 Comments unable without UE assist PT-OP-G Mobility & Gait Start: 10/16/20 13:00 Freq: Status: Active Protocol: Document 10/16/20 13:07 OF (Rec: 10/16/20 13:31 OF [id number]) OP Gait Assessment Assistive Devices Assistive Device Small Based Quad Cane Gait Deviations General Gait Pattern Antalgic,Decreased Stride Length Comments Gait Comments poor foot clearance on L, increased tone in L UE with dual tasking PT-OP-K Range of Motion Start: 10/16/20 13:00 Freq: Status: Active Protocol: Document 10/16/20 13:07 OF (Rec: 10/16/20 13:31 OF [id number]) Knee Goniometric Range of Motion Knee Right Knee ROM WFL Yes Left Knee ROM WFL Yes Ankle and Foot Goniometric Range of Motion Ankle and Foot Left Active Ankle/Foot ROM WFL No Dorsiflexion with Knee Flexed 10 Dorsiflexion with Knee Extended 5 Comments poor foot clearance with AMB Toe Range of Motion Toes ROM Limitations Comments 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 PT-OP-Q Treatments Start: 10/16/20 13:00 Freq: Status: Active Protocol: Document 11/29/20 12:48 OF (Rec: 11/29/20 12:55 OF [id number]) Cardio Equipment Recumbent Stepper (Sci-Fit) Duration (Minutes) 9 Resistance 2 Seat Position 16 Other LEs only Gym Equipment Shuttle Recovery Unilateral Squats Resistance 62# Shuttle Recovery Platform Stable Reps/Time 3x10 Bilateral Squats Resistance 100# Shuttle Recovery Platform Stable Reps/Time 2x10 Therapeutic Exercises Sitting Exercises knee extension Side bilateral Resistance 2plates Reps/Minutes 3x10, cues for rest between bouts LAQ Side bilateral Resistance 10# Reps/Minutes 3x10 Comments cues for proper seated position for HEP gastroc stretch Side left Equipment Used standing on NATY with knee extended and knee bent Reps/Minutes [id number] Comments re educated for HEP Standing Exercises Hamstring Curls Standing Exercise Name HS curls Side bilateral Resistance 10# Reps/Minutes 1x5 Marching Standing Exercise Name Standing marching Side bilateral Resistance 10# Reps/Minutes 1x5 Gait Training Gait Activity gait with quad cane Device Used quad cane Level of Assistance SBA Surface level Distance/Duration 50x4 Treatment Focus pushoff on L, foot clearance on L, widening ALBERT for cane placement Self-Care/Home Management Treatment Education Patient Education Fall Risk,Home Exercise Program PT-OP-T Assessment and Plan Start: 10/16/20 13:00 Freq: Status: Active Protocol: Document 11/29/20 12:48 OF (Rec: 11/29/20 12:55 OF [email or web address]) Physical Therapy Assessment Rehab Potential Rehabilitation Potential Good Evaluation Complexity Number of Personal Factors/Comorbidities 1-2 Number of Body Systems Impaired 1-2 Clinical Presentation at Evaluation Stable Impairments Impairments Gait,Strength,Tone Goals 3 Impairment poor L sided ankle ROM Short Term Goal (STG) pt will improve dorsiflexion to 10 with knee ext to improve gait kinematics continuing continuing 11/29/20 STG Duration 2 weeks Nursing Home Goal (LTG) Pt will improve L ankle dorsiflexion to 15 to improve I with AMB and stairs 11/29/20 2 Impairment LE weakness Short Term Goal (STG) Pt will perform 5 sit to stands with UE assist to improve functional mobility and LE strength goal met STG Duration 2 weeks Nursing Home Goal (LTG) Pt will complete 12 sit to stands in 30 sec to demonstrate improved community mobility continuing 11/29/20 LTG Duration 6 weeks 1 Impairment pt lacks HEP Short Term Goal (STG) Pt will be I with written HEP to maximize functional return continuing 11/29/20 STG Duration 2 weeks Progress Towards Goals Progress Towards Goals Slow Progress due to Activity Tolerance Assessment Summary Assessment Jewel has limited HEP performance, he is aware of HEP, but inconsistent. He requires redirection for participation during tx. He will require continued intervention to improve dynamic balance, reduce fall risk, increase LE strength and improve gait pattern. Physical Therapy Plan Frequency and Duration Frequency of Treatment 1-2x/week Duration of Treatment 4weeks Plan of Care Start Date 11/29/20 Plan of Care End Date 12/27/20 Therapeutic Interventions Therapeutic Interventions Gait Training,Home Exercise Program,Manual Therapy, Neuromuscular Re-education, Therapeutic Exercises Next Visit Focus/Plan Next Note Type Treatment Note Next Visit Plan progress quad strengthening, increase ankle arom, address afo use for improved gait kinematics
--- NOTE | 2020-11-29 12:55 | PT.OPPOC ---
Physical, Occupational & Speech Therapy At [facility] Current Diagnoses Bilateral primary osteoarthritis of knee (11/29/20) Visit Care Team Role Provider Type Kylie Vinson DO Attending Provider Physician Primary Care Provider Referring Provider Specialty: Family Practice Address: [address] [place] [address], [address], [address] Email: [email or web address] Plan Of Care PT-OP-T Assessment and Plan Start: 10/16/20 13:00 Freq: Status: Active Protocol: Document 11/29/20 12:48 OF (Rec: 11/29/20 12:55 OF [id number]) Physical Therapy Assessment Rehab Potential Rehabilitation Potential Good Evaluation Complexity Number of Personal Factors/Comorbidities 1-2 Number of Body Systems Impaired 1-2 Clinical Presentation at Evaluation Stable Impairments Impairments Gait,Strength,Tone Goals 3 Impairment poor L sided ankle ROM Short Term Goal (STG) pt will improve dorsiflexion to 10 with knee ext to improve gait kinematics continuing continuing 11/29/20 STG Duration 2 weeks Fdc Goal (LTG) Pt will improve L ankle dorsiflexion to 15 to improve I with AMB and stairs 11/29/20 2 Impairment LE weakness Short Term Goal (STG) Pt will perform 5 sit to stands with UE assist to improve functional mobility and LE strength goal met STG Duration 2 weeks Dredge Operator Supervisor Goal (LTG) Pt will complete 12 sit to stands in 30 sec to demonstrate improved community mobility continuing 11/29/20 LTG Duration 6 weeks 1 Impairment pt lacks HEP Short Term Goal (STG) Pt will be I with written HEP to maximize functional return continuing 11/29/20 STG Duration 2 weeks Progress Towards Goals Progress Towards Goals Slow Progress due to Activity Tolerance Assessment Summary Assessment Jewel has limited HEP performance, he is aware of HEP, but inconsistent. He requires redirection for participation during tx. He will require continued intervention to improve dynamic balance, reduce fall risk, increase LE strength and improve gait pattern. Physical Therapy Plan Frequency and Duration Frequency of Treatment 1-2x/week Duration of Treatment 4weeks Plan of Care Start Date 11/29/20 Plan of Care End Date 12/27/20 Therapeutic Interventions Therapeutic Interventions Gait Training,Home Exercise Program,Manual Therapy, Neuromuscular Re-education, Therapeutic Exercises Next Visit Focus/Plan Next Note Type Treatment Note Next Visit Plan progress quad strengthening, increase ankle arom, address afo use for improved gait kinematics Plan of Care Dates Plan of Care Start Date 11/29/20 Plan of Care End Date 12/27/20 Electronically Signed by: Omar Herzog, PT 11/29/20 8921 Please Sign and Return: I have reviewed this Plan of Care and certify that the skilled therapy services above are required to meet the patient?s needs. Physician Signature Date Printed Name and Credentials Clinical Instructor Signature Printed Name and Credentials
--- NOTE | 2020-12-06 14:27 | PT.OTN ---
Current Diagnoses Bilateral primary osteoarthritis of knee (12/06/20) Physical Therapy Treatment Note PT-OP-A Visit Information Start: 10/16/20 13:00 Freq: Status: Active Protocol: Document 12/06/20 13:50 DCW (Rec: 12/06/20 14:26 DCW [id number]) Out-Patient Physical Therapy Visit Information Visit Information Visit Type Treatment Note Visit Start Time 13:50 Visit Stop Time 14:30 Total Visit Minutes 40 Visit Number 11 Number of ENGLISH DRAWER Visits 0 Precautions Precautions prior cva with L sided deficits PT-OP-B Current Condition Start: 10/16/20 13:00 Freq: Status: Active Protocol: Document 10/16/20 13:07 OF (Rec: 10/16/20 13:31 OF [id number]) Current Condition History of Current Condition Onset Date ~3yrs prior History of Current Condition Pt states he has had knee pain for at least 3 years, and had a CVA with L sided deficits. He is unsure of timeframe containing CVA, pacemaker placement, LE weakness and pain. Treatment Goals Patient/Caregiver Goals Make my knees stronger Prior Functional Status Baseline Function- ADL's Modified Independent Baseline Function- Mobility Modified Independent Baseline Function- Other Pt has limited endurance walking and performing activities due to L LE weakness PT-OP-C Subjective Start: 10/16/20 13:00 Freq: Status: Active Protocol: Document 12/06/20 13:50 DCW (Rec: 12/06/20 14:26 DCW [id number]) OP-PT Subjective Patient Comments Patient Comments Pt notes walking down stairs today, his left leg felt like it was going to kick out from under him, and he had to use his hands to support himself. PT-OP-E Functional Tests Start: 10/16/20 13:00 Freq: Status: Active Protocol: Document 10/16/20 13:07 OF (Rec: 10/16/20 13:31 OF [id number]) Functional Tests Five Times Sit to Stand Test Score 0 Comments unable without UE assist PT-OP-G Mobility & Gait Start: 10/16/20 13:00 Freq: Status: Active Protocol: Document 10/16/20 13:07 OF (Rec: 10/16/20 13:31 OF [id number]) OP Gait Assessment Assistive Devices Assistive Device Small Based Quad Cane Gait Deviations General Gait Pattern Antalgic,Decreased Stride Length Comments Gait Comments poor foot clearance on L, increased tone in L UE with dual tasking PT-OP-K Range of Motion Start: 10/16/20 13:00 Freq: Status: Active Protocol: Document 10/16/20 13:07 OF (Rec: 10/16/20 13:31 OF [id number]) Knee Goniometric Range of Motion Knee Right Knee ROM WFL Yes Left Knee ROM WFL Yes Ankle and Foot Goniometric Range of Motion Ankle and Foot Left Active Ankle/Foot ROM WFL No Dorsiflexion with Knee Flexed 10 Dorsiflexion with Knee Extended 5 Comments poor foot clearance with AMB Toe Range of Motion Toes ROM Limitations Comments 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 PT-OP-Q Treatments Start: 10/16/20 13:00 Freq: Status: Active Protocol: Document 12/06/20 13:50 DCW (Rec: 12/06/20 14:26 DCW [id number]) Cardio Equipment Recumbent Elliptical (Biodex) Duration (Minutes) 8 Resistance 4->2 Seat Position 14 Gym Equipment Cable Column (Body Solid) Leg Extension Details Single leg Resistance 20# Reps/Time 2x10 Shuttle Recovery Unilateral Squats Resistance 62# Shuttle Recovery Platform Stable Reps/Time 3x10 Bilateral Squats Resistance 100# Shuttle Recovery Platform Stable Reps/Time 2x10 Shuttle Balance 1 Details Red Reps/Duration 10min Comments A/P and lateral weightshifting PT-OP-T Assessment and Plan Start: 10/16/20 13:00 Freq: Status: Active Protocol: Document 12/06/20 13:50 DCW (Rec: 12/06/20 14:26 DCW [id number]) Physical Therapy Assessment Impairments Impairments Gait,Strength,Tone Goals 3 Impairment poor L sided ankle ROM Short Term Goal (STG) pt will improve dorsiflexion to 10 with knee ext to improve gait kinematics STG Duration 2 weeks Long-Term Goal (LTG) Pt will improve L ankle dorsiflexion to 15 to improve I with AMB and stairs 11/29/20 2 Impairment LE weakness Short Term Goal (STG) Pt will perform 5 sit to stands with UE assist to improve functional mobility and LE strength STG Duration 2 weeks Sales And Management Trainee Goal (LTG) Pt will complete 12 sit to stands in 30 sec to demonstrate improved community mobility LTG Duration 6 weeks 1 Impairment pt lacks HEP Short Term Goal (STG) Pt will be I with written HEP to maximize functional return STG Duration 2 weeks Assessment Summary Assessment Pt still fairly limited with activity tolerance, required multiple rest breaks during today's treatment session. Physical Therapy Plan Frequency and Duration Frequency of Treatment 1-2x/week Duration of Treatment 4weeks Plan of Care Start Date 11/29/20 Plan of Care End Date 12/27/20 Therapeutic Interventions Therapeutic Interventions Gait Training,Home Exercise Program,Manual Therapy, Neuromuscular Re-education, Therapeutic Exercises Next Visit Focus/Plan Next Note Type Treatment Note Next Visit Plan progress quad strengthening, increase ankle arom, address afo use for improved gait kinematics
--- NOTE | 2020-12-13 14:30 | PT.OTN ---
Current Diagnoses Bilateral primary osteoarthritis of knee (12/13/20) Physical Therapy Treatment Note PT-OP-A Visit Information Start: 10/16/20 13:00 Freq: Status: Active Protocol: Document 12/13/20 13:47 DCW (Rec: 12/13/20 14:30 DCW [id number]) Out-Patient Physical Therapy Visit Information Visit Information Visit Type Treatment Note Visit Start Time 13:47 Visit Stop Time 14:30 Total Visit Minutes 43 Visit Number 12 Number of MAGNETIC HEALER Visits 0 Precautions Precautions prior cva with L sided deficits PT-OP-B Current Condition Start: 10/16/20 13:00 Freq: Status: Active Protocol: Document 10/16/20 13:07 OF (Rec: 10/16/20 13:31 OF [id number]) Current Condition History of Current Condition Onset Date ~3yrs prior History of Current Condition Pt states he has had knee pain for at least 3 years, and had a CVA with L sided deficits. He is unsure of timeframe containing CVA, pacemaker placement, LE weakness and pain. Treatment Goals Patient/Caregiver Goals Make my knees stronger Prior Functional Status Baseline Function- ADL's Modified Independent Baseline Function- Mobility Modified Independent Baseline Function- Other Pt has limited endurance walking and performing activities due to L LE weakness PT-OP-C Subjective Start: 10/16/20 13:00 Freq: Status: Active Protocol: Document 12/13/20 13:47 DCW (Rec: 12/13/20 14:30 DCW [id number]) OP-PT Subjective Patient Comments Patient Comments Pt reports he just feels odd the past few days. Not light -headed per se, but just a little woozy and like I need to sit down. BP measured today, 146/90. PT-OP-E Functional Tests Start: 10/16/20 13:00 Freq: Status: Active Protocol: Document 10/16/20 13:07 OF (Rec: 10/16/20 13:31 OF [id number]) Functional Tests Five Times Sit to Stand Test Score 0 Comments unable without UE assist PT-OP-G Mobility & Gait Start: 10/16/20 13:00 Freq: Status: Active Protocol: Document 10/16/20 13:07 OF (Rec: 10/16/20 13:31 OF [id number]) OP Gait Assessment Assistive Devices Assistive Device Small Based Quad Cane Gait Deviations General Gait Pattern Antalgic,Decreased Stride Length Comments Gait Comments poor foot clearance on L, increased tone in L UE with dual tasking PT-OP-K Range of Motion Start: 10/16/20 13:00 Freq: Status: Active Protocol: Document 10/16/20 13:07 OF (Rec: 10/16/20 13:31 OF [id number]) Knee Goniometric Range of Motion Knee Right Knee ROM WFL Yes Left Knee ROM WFL Yes Ankle and Foot Goniometric Range of Motion Ankle and Foot Left Active Ankle/Foot ROM WFL No Dorsiflexion with Knee Flexed 10 Dorsiflexion with Knee Extended 5 Comments poor foot clearance with AMB Toe Range of Motion Toes ROM Limitations Comments 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 PT-OP-Q Treatments Start: 10/16/20 13:00 Freq: Status: Active Protocol: Document 12/13/20 13:47 DCW (Rec: 12/13/20 14:30 DCW [id number]) Cardio Equipment Recumbent Elliptical (Biodex) Duration (Minutes) 8 Resistance 4->2 Seat Position 14 Other Start at 4, decrease to 2 with fatigue Gym Equipment Cable Column (Body Solid) Leg Extension Details Single leg Resistance 25# Reps/Time 2x10 Shuttle Recovery Unilateral Squats Resistance 62# Shuttle Recovery Platform Stable Reps/Time 3x10 Bilateral Squats Resistance 100# Shuttle Recovery Platform Stable Reps/Time 2x10 Shuttle Balance 1 Details Red Reps/Duration 10min Comments WBOS and staggered Therapeutic Exercises Sitting Exercises LAQ Side bilateral Resistance 10# Reps/Minutes 3x10 Comments cues for proper seated position for HEP Standing Exercises Hamstring Curls Standing Exercise Name Toe-taps Side bilateral Resistance 10# Equipment Used 6 step Reps/Minutes 1x5 Marching Standing Exercise Name Standing marching Side bilateral Resistance 10# Reps/Minutes 1x5 PT-OP-T Assessment and Plan Start: 10/16/20 13:00 Freq: Status: Active Protocol: Document 12/13/20 13:47 DCW (Rec: 12/13/20 14:30 DCW [id number]) Physical Therapy Assessment Impairments Impairments Gait,Strength,Tone Goals 3 Impairment poor L sided ankle ROM Short Term Goal (STG) pt will improve dorsiflexion to 10 with knee ext to improve gait kinematics STG Duration 2 weeks Usp Goal (LTG) Pt will improve L ankle dorsiflexion to 15 to improve I with AMB and stairs 11/29/20 2 Impairment LE weakness Short Term Goal (STG) Pt will perform 5 sit to stands with UE assist to improve functional mobility and LE strength STG Duration 2 weeks Buckle Frame Shaper Goal (LTG) Pt will complete 12 sit to stands in 30 sec to demonstrate improved community mobility LTG Duration 6 weeks 1 Impairment pt lacks HEP Short Term Goal (STG) Pt will be I with written HEP to maximize functional return STG Duration 2 weeks Assessment Summary Assessment Pt slightly improved with activity tolerance today, did have some difficulty with 10# weights for LAQ and HS curls. Physical Therapy Plan Frequency and Duration Frequency of Treatment 1-2x/week Duration of Treatment 4weeks Plan of Care Start Date 11/29/20 Plan of Care End Date 12/27/20 Therapeutic Interventions Therapeutic Interventions Gait Training,Home Exercise Program,Manual Therapy, Neuromuscular Re-education, Therapeutic Exercises Next Visit Focus/Plan Next Note Type Treatment Note Next Visit Plan progress quad strengthening, increase ankle arom, address afo use for improved gait kinematics
--- NOTE | 2020-12-20 15:18 | PT.OTN ---
Current Diagnoses Bilateral primary osteoarthritis of knee (12/20/20) Physical Therapy Treatment Note PT-OP-A Visit Information Start: 10/16/20 13:00 Freq: Status: Active Protocol: Document 12/20/20 14:30 DCW (Rec: 12/20/20 15:17 DCW [id number]) Out-Patient Physical Therapy Visit Information Visit Information Visit Type Treatment Note Visit Start Time 14:30 Visit Stop Time 15:15 Total Visit Minutes 45 Visit Number 13 Number of FAGOTING MACHINE OPERATOR Visits 0 Precautions Precautions prior cva with L sided deficits PT-OP-B Current Condition Start: 10/16/20 13:00 Freq: Status: Active Protocol: Document 10/16/20 13:07 OF (Rec: 10/16/20 13:31 OF [id number]) Current Condition History of Current Condition Onset Date ~3yrs prior History of Current Condition Pt states he has had knee pain for at least 3 years, and had a CVA with L sided deficits. He is unsure of timeframe containing CVA, pacemaker placement, LE weakness and pain. Treatment Goals Patient/Caregiver Goals Make my knees stronger Prior Functional Status Baseline Function- ADL's Modified Independent Baseline Function- Mobility Modified Independent Baseline Function- Other Pt has limited endurance walking and performing activities due to L LE weakness PT-OP-C Subjective Start: 10/16/20 13:00 Freq: Status: Active Protocol: Document 12/20/20 14:30 DCW (Rec: 12/20/20 15:17 DCW [id number]) OP-PT Subjective Patient Comments Patient Comments I need to accept that I need to put more effort into this recovery, and it's on me, not you, to get me better. I just need to do more at home. PT-OP-E Functional Tests Start: 10/16/20 13:00 Freq: Status: Active Protocol: Document 10/16/20 13:07 OF (Rec: 10/16/20 13:31 OF [id number]) Functional Tests Five Times Sit to Stand Test Score 0 Comments unable without UE assist PT-OP-G Mobility & Gait Start: 10/16/20 13:00 Freq: Status: Active Protocol: Document 10/16/20 13:07 OF (Rec: 10/16/20 13:31 OF [id number]) OP Gait Assessment Assistive Devices Assistive Device Small Based Quad Cane Gait Deviations General Gait Pattern Antalgic,Decreased Stride Length Comments Gait Comments poor foot clearance on L, increased tone in L UE with dual tasking PT-OP-K Range of Motion Start: 10/16/20 13:00 Freq: Status: Active Protocol: Document 10/16/20 13:07 OF (Rec: 10/16/20 13:31 OF [id number]) Knee Goniometric Range of Motion Knee Right Knee ROM WFL Yes Left Knee ROM WFL Yes Ankle and Foot Goniometric Range of Motion Ankle and Foot Left Active Ankle/Foot ROM WFL No Dorsiflexion with Knee Flexed 10 Dorsiflexion with Knee Extended 5 Comments poor foot clearance with AMB Toe Range of Motion Toes ROM Limitations Comments 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 PT-OP-Q Treatments Start: 10/16/20 13:00 Freq: Status: Active Protocol: Document 12/20/20 14:30 DCW (Rec: 12/20/20 15:17 DCW [id number]) Cardio Equipment Recumbent Elliptical (Biodex) Duration (Minutes) 8 Resistance 4 Seat Position 13 Gym Equipment Cable Column (Body Solid) Leg Extension Details Single leg Resistance 25# Reps/Time 2x10 Shuttle Recovery Unilateral Squats Resistance 62# Shuttle Recovery Platform Stable Reps/Time 3x10 Bilateral Squats Resistance 100# Shuttle Recovery Platform Stable Reps/Time 2x10 Shuttle Balance 1 Details Red Reps/Duration 10min Comments WBOS and staggered Therapeutic Exercises Standing Exercises Hamstring Curls Standing Exercise Name Hamstring Curls Side bilateral Resistance 10# Equipment Used 6 step Reps/Minutes 1x5 Marching Standing Exercise Name Toe-taps Side bilateral Resistance 10# Reps/Minutes 1x5 PT-OP-T Assessment and Plan Start: 10/16/20 13:00 Freq: Status: Active Protocol: Document 12/20/20 14:30 DCW (Rec: 12/20/20 15:17 DCW [id number]) Physical Therapy Assessment Impairments Impairments Gait,Strength,Tone Goals 3 Impairment poor L sided ankle ROM Short Term Goal (STG) pt will improve dorsiflexion to 10 with knee ext to improve gait kinematics STG Duration 2 weeks Elevator Runner Goal (LTG) Pt will improve L ankle dorsiflexion to 15 to improve I with AMB and stairs 11/29/20 2 Impairment LE weakness Short Term Goal (STG) Pt will perform 5 sit to stands with UE assist to improve functional mobility and LE strength STG Duration 2 weeks Assisted Goal (LTG) Pt will complete 12 sit to stands in 30 sec to demonstrate improved community mobility LTG Duration 6 weeks 1 Impairment pt lacks HEP Short Term Goal (STG) Pt will be I with written HEP to maximize functional return STG Duration 2 weeks Assessment Summary Assessment Pt fatigued by end of session, but fewer rest breaks than usual. Physical Therapy Plan Frequency and Duration Frequency of Treatment 1-2x/week Duration of Treatment 4weeks Plan of Care Start Date 11/29/20 Plan of Care End Date 12/27/20 Therapeutic Interventions Therapeutic Interventions Gait Training,Home Exercise Program,Manual Therapy, Neuromuscular Re-education, Therapeutic Exercises Next Visit Focus/Plan Next Note Type Treatment Note Next Visit Plan progress quad strengthening, increase ankle arom, address afo use for improved gait kinematics
--- NOTE | 2021-01-01 17:38 | PT.OTN ---
Current Diagnoses Bilateral primary osteoarthritis of knee (01/01/21) Physical Therapy Treatment Note PT-OP-A Visit Information Start: 10/16/20 13:00 Freq: Status: Active Protocol: Document 01/01/21 16:02 DCW (Rec: 01/01/21 16:46 DCW [id number]) Out-Patient Physical Therapy Visit Information Visit Information Visit Type Treatment Note Visit Start Time 16:02 Visit Stop Time 16:45 Total Visit Minutes 43 Visit Number 14 Number of FLOWER POT PRESS OPERATOR Visits 0 Precautions Precautions prior cva with L sided deficits PT-OP-B Current Condition Start: 10/16/20 13:00 Freq: Status: Active Protocol: Document 10/16/20 13:07 OF (Rec: 10/16/20 13:31 OF [id number]) Current Condition History of Current Condition Onset Date ~3yrs prior History of Current Condition Pt states he has had knee pain for at least 3 years, and had a CVA with L sided deficits. He is unsure of timeframe containing CVA, pacemaker placement, LE weakness and pain. Treatment Goals Patient/Caregiver Goals Make my knees stronger Prior Functional Status Baseline Function- ADL's Modified Independent Baseline Function- Mobility Modified Independent Baseline Function- Other Pt has limited endurance walking and performing activities due to L LE weakness PT-OP-C Subjective Start: 10/16/20 13:00 Freq: Status: Active Protocol: Document 01/01/21 16:02 DCW (Rec: 01/01/21 16:46 DCW [id number]) OP-PT Subjective Patient Comments Patient Comments Pretty good except for the rain. PT-OP-E Functional Tests Start: 10/16/20 13:00 Freq: Status: Active Protocol: Document 01/01/21 16:00 DCW (Rec: 01/01/21 17:38 DCW [id number]) Functional Tests Five Times Sit to Stand Test Score 2 PT-OP-G Mobility & Gait Start: 10/16/20 13:00 Freq: Status: Active Protocol: Document 01/01/21 16:00 DCW (Rec: 01/01/21 17:38 DCW [id number]) OP Gait Assessment Assistive Devices Assistive Device Small Based Quad Cane Gait Deviations General Gait Pattern Antalgic,Decreased Stride Length Comments Gait Comments poor foot clearance on L, increased tone in L UE with dual tasking PT-OP-K Range of Motion Start: 10/16/20 13:00 Freq: Status: Active Protocol: Document 01/01/21 16:00 DCW (Rec: 01/01/21 17:38 DCW [id number]) Ankle and Foot Goniometric Range of Motion Ankle and Foot Left Active Ankle/Foot ROM WFL No Dorsiflexion with Knee Flexed 10 Dorsiflexion with Knee Extended 5 Comments poor foot clearance with AMB PT-OP-Q Treatments Start: 10/16/20 13:00 Freq: Status: Active Protocol: Document 01/01/21 16:02 DCW (Rec: 01/01/21 16:46 DCW [id number]) Cardio Equipment Recumbent Elliptical (Biodex) Duration (Minutes) 8 Resistance 4->3 Seat Position 14 Gym Equipment Cable Column (Body Solid) Leg Extension Details Single leg Resistance 25# Reps/Time 2x10 Shuttle Recovery Unilateral Squats Resistance 62# Shuttle Recovery Platform Stable Reps/Time 3x10 Bilateral Squats Resistance 100# Shuttle Recovery Platform Stable Reps/Time 2x10 Shuttle Balance 1 Details Red Reps/Duration 10min Comments WBOS and staggered Therapeutic Exercises Standing Exercises Hamstring Curls Standing Exercise Name Hamstring Curls Side bilateral Resistance 10# Reps/Minutes 2x10 Marching Standing Exercise Name Toe-taps Side bilateral Resistance 10# Equipment Used 6 step Reps/Minutes 2x10 PT-OP-T Assessment and Plan Start: 10/16/20 13:00 Freq: Status: Active Protocol: Document 01/01/21 16:02 DCW (Rec: 01/01/21 16:46 DCW [id number]) Physical Therapy Assessment Impairments Impairments Gait,Strength,Tone Goals 3 Impairment poor L sided ankle ROM Short Term Goal (STG) pt will improve dorsiflexion to 10 with knee ext to improve gait kinematics STG Duration 2 weeks Jail Goal (LTG) Pt will improve L ankle dorsiflexion to 15 to improve I with AMB and stairs 11/29/20 2 Impairment LE weakness Short Term Goal (STG) Pt will perform 5 sit to stands with UE assist to improve functional mobility and LE strength STG Duration 2 weeks Clean Up Helper Banquet Goal (LTG) Pt will complete 12 sit to stands in 30 sec to demonstrate improved community mobility LTG Duration 6 weeks 1 Impairment pt lacks HEP Short Term Goal (STG) Pt will be I with written HEP to maximize functional return STG Duration 2 weeks Assessment Summary Assessment Pt still very fatigued today, struggled with Shuttle Balance , couldn't find my center. Pt may be plateauing, but could benefit from a few more weeks for further training and improving activity tolerance. Physical Therapy Plan Frequency and Duration Frequency of Treatment 1-2x/week Duration of Treatment 4weeks Plan of Care Start Date 01/01/21 Plan of Care End Date 01/29/21 Therapeutic Interventions Therapeutic Interventions Gait Training,Home Exercise Program,Manual Therapy, Neuromuscular Re-education, Therapeutic Exercises Next Visit Focus/Plan Next Note Type Treatment Note Next Visit Plan progress quad strengthening, increase ankle arom, address afo use for improved gait kinematics
--- NOTE | 2021-01-01 17:38 | PT.OPPOC ---
Physical, Occupational & Speech Therapy At [facility] Current Diagnoses Bilateral primary osteoarthritis of knee (01/01/21) Visit Care Team Role Provider Type Kylie Vinson DO Attending Provider Physician Primary Care Provider Referring Provider Specialty: Family Practice Address: [address] [place] [address], [address], [address] Email: [email or web address] Plan Of Care PT-OP-T Assessment and Plan Start: 10/16/20 13:00 Freq: Status: Active Protocol: Document 01/01/21 16:02 DCW (Rec: 01/01/21 16:46 DCW [id number]) Physical Therapy Assessment Impairments Impairments Gait,Strength,Tone Goals 3 Impairment poor L sided ankle ROM Short Term Goal (STG) pt will improve dorsiflexion to 10 with knee ext to improve gait kinematics STG Duration 2 weeks Manufacturing Analyst Goal (LTG) Pt will improve L ankle dorsiflexion to 15 to improve I with AMB and stairs 11/29/20 2 Impairment LE weakness Short Term Goal (STG) Pt will perform 5 sit to stands with UE assist to improve functional mobility and LE strength STG Duration 2 weeks Shelter Goal (LTG) Pt will complete 12 sit to stands in 30 sec to demonstrate improved community mobility LTG Duration 6 weeks 1 Impairment pt lacks HEP Short Term Goal (STG) Pt will be I with written HEP to maximize functional return STG Duration 2 weeks Assessment Summary Assessment Pt still very fatigued today, struggled with Shuttle Balance , couldn't find my center. Pt may be plateauing, but could benefit from a few more weeks for further training and improving activity tolerance. Physical Therapy Plan Frequency and Duration Frequency of Treatment 1-2x/week Duration of Treatment 4weeks Plan of Care Start Date 01/01/21 Plan of Care End Date 01/29/21 Therapeutic Interventions Therapeutic Interventions Gait Training,Home Exercise Program,Manual Therapy, Neuromuscular Re-education, Therapeutic Exercises Next Visit Focus/Plan Next Note Type Treatment Note Next Visit Plan progress quad strengthening, increase ankle arom, address afo use for improved gait kinematics Plan of Care Dates Plan of Care Start Date 01/01/21 Plan of Care End Date 01/29/21 Electronically Signed by: Danilo Santos PT 01/01/21 2448 Please Sign and Return: I have reviewed this Plan of Care and certify that the skilled therapy services above are required to meet the patient?s needs. Physician Signature Date Printed Name and Credentials Clinical Instructor Signature Printed Name and Credentials
--- NOTE | 2021-01-03 16:50 | PT.OTN ---
Current Diagnoses Bilateral primary osteoarthritis of knee (01/03/21) Physical Therapy Treatment Note PT-OP-A Visit Information Start: 10/16/20 13:00 Freq: Status: Active Protocol: Document 01/03/21 16:07 DCW (Rec: 01/03/21 16:50 DCW [id number]) Out-Patient Physical Therapy Visit Information Visit Information Visit Type Treatment Note Visit Start Time 16:07 Visit Stop Time 16:45 Total Visit Minutes 38 Visit Number 15 Number of PRODUCTION LEADER Visits 0 Precautions Precautions prior cva with L sided deficits PT-OP-B Current Condition Start: 10/16/20 13:00 Freq: Status: Active Protocol: Document 10/16/20 13:07 OF (Rec: 10/16/20 13:31 OF [id number]) Current Condition History of Current Condition Onset Date ~3yrs prior History of Current Condition Pt states he has had knee pain for at least 3 years, and had a CVA with L sided deficits. He is unsure of timeframe containing CVA, pacemaker placement, LE weakness and pain. Treatment Goals Patient/Caregiver Goals Make my knees stronger Prior Functional Status Baseline Function- ADL's Modified Independent Baseline Function- Mobility Modified Independent Baseline Function- Other Pt has limited endurance walking and performing activities due to L LE weakness PT-OP-C Subjective Start: 10/16/20 13:00 Freq: Status: Active Protocol: Document 01/03/21 16:07 DCW (Rec: 01/03/21 16:50 DCW [id number]) OP-PT Subjective Patient Comments Patient Comments Pt a little tired today, I don't know why, its not like I 've done anything. PT-OP-E Functional Tests Start: 10/16/20 13:00 Freq: Status: Active Protocol: Document 01/01/21 16:00 DCW (Rec: 01/01/21 17:38 DCW [id number]) Functional Tests Five Times Sit to Stand Test Score 2 PT-OP-G Mobility & Gait Start: 10/16/20 13:00 Freq: Status: Active Protocol: Document 01/01/21 16:00 DCW (Rec: 01/01/21 17:38 DCW [id number]) OP Gait Assessment Assistive Devices Assistive Device Small Based Quad Cane Gait Deviations General Gait Pattern Antalgic,Decreased Stride Length Comments Gait Comments poor foot clearance on L, increased tone in L UE with dual tasking PT-OP-K Range of Motion Start: 10/16/20 13:00 Freq: Status: Active Protocol: Document 01/01/21 16:00 DCW (Rec: 01/01/21 17:38 DCW [id number]) Ankle and Foot Goniometric Range of Motion Ankle and Foot Left Active Ankle/Foot ROM WFL No Dorsiflexion with Knee Flexed 10 Dorsiflexion with Knee Extended 5 Comments poor foot clearance with AMB PT-OP-Q Treatments Start: 10/16/20 13:00 Freq: Status: Active Protocol: Document 01/03/21 16:07 DCW (Rec: 01/03/21 16:50 DCW [id number]) Cardio Equipment Recumbent Elliptical (Biodex) Duration (Minutes) 8 Resistance 4->3 Seat Position 14 Gym Equipment Cable Column (Body Solid) Leg Extension Details Single leg Resistance 25# Reps/Time 2x10 Shuttle Recovery Unilateral Squats Resistance 62# Shuttle Recovery Platform Stable Reps/Time 3x10 Bilateral Squats Resistance 100# Shuttle Recovery Platform Stable Reps/Time 2x10 Shuttle Balance 1 Details Red Reps/Duration 10min Comments WBOS and staggered Therapeutic Exercises Standing Exercises Hamstring Curls Standing Exercise Name Hamstring Curls Side bilateral Resistance 10# Reps/Minutes 2x10 Marching Standing Exercise Name Toe-taps Side bilateral Resistance 10# Equipment Used 6 step Reps/Minutes 2x10 PT-OP-T Assessment and Plan Start: 10/16/20 13:00 Freq: Status: Active Protocol: Document 01/03/21 16:07 DCW (Rec: 01/03/21 16:50 DCW [id number]) Physical Therapy Assessment Impairments Impairments Gait,Strength,Tone Goals 3 Impairment poor L sided ankle ROM Short Term Goal (STG) pt will improve dorsiflexion to 10 with knee ext to improve gait kinematics STG Duration 2 weeks Graduating Machine Operator Goal (LTG) Pt will improve L ankle dorsiflexion to 15 to improve I with AMB and stairs 11/29/20 2 Impairment LE weakness Short Term Goal (STG) Pt will perform 5 sit to stands with UE assist to improve functional mobility and LE strength STG Duration 2 weeks Graduating Machine Operator Goal (LTG) Pt will complete 12 sit to stands in 30 sec to demonstrate improved community mobility LTG Duration 6 weeks 1 Impairment pt lacks HEP Short Term Goal (STG) Pt will be I with written HEP to maximize functional return STG Duration 2 weeks Assessment Summary Assessment Pt did well today overall, better on the shuttle balance today. Physical Therapy Plan Frequency and Duration Frequency of Treatment 1-2x/week Duration of Treatment 4weeks Plan of Care Start Date 01/01/21 Plan of Care End Date 01/29/21 Therapeutic Interventions Therapeutic Interventions Gait Training,Home Exercise Program,Manual Therapy, Neuromuscular Re-education, Therapeutic Exercises Next Visit Focus/Plan Next Note Type Treatment Note Next Visit Plan progress quad strengthening, increase ankle arom, address afo use for improved gait kinematics
--- NOTE | 2021-01-07 15:14 | PT.OTN ---
Current Diagnoses Bilateral primary osteoarthritis of knee (01/07/21) Physical Therapy Treatment Note PT-OP-A Visit Information Start: 10/16/20 13:00 Freq: Status: Active Protocol: Document 01/07/21 14:34 DCW (Rec: 01/07/21 15:14 DCW [id number]) Out-Patient Physical Therapy Visit Information Visit Information Visit Type Treatment Note Visit Start Time 14:34 Visit Stop Time 15:15 Total Visit Minutes 41 Visit Number 16 Number of LABELING SPECIALIST Visits 0 Precautions Precautions prior cva with L sided deficits PT-OP-B Current Condition Start: 10/16/20 13:00 Freq: Status: Active Protocol: Document 10/16/20 13:07 OF (Rec: 10/16/20 13:31 OF [id number]) Current Condition History of Current Condition Onset Date ~3yrs prior History of Current Condition Pt states he has had knee pain for at least 3 years, and had a CVA with L sided deficits. He is unsure of timeframe containing CVA, pacemaker placement, LE weakness and pain. Treatment Goals Patient/Caregiver Goals Make my knees stronger Prior Functional Status Baseline Function- ADL's Modified Independent Baseline Function- Mobility Modified Independent Baseline Function- Other Pt has limited endurance walking and performing activities due to L LE weakness PT-OP-C Subjective Start: 10/16/20 13:00 Freq: Status: Active Protocol: Document 01/07/21 14:34 DCW (Rec: 01/07/21 15:14 DCW [id number]) OP-PT Subjective Patient Comments Patient Comments Pt reports he had a lot of pain in his hand last night, limiting his sleep, stemming from his ongoing trigger finger issues. PT-OP-E Functional Tests Start: 10/16/20 13:00 Freq: Status: Active Protocol: Document 01/01/21 16:00 DCW (Rec: 01/01/21 17:38 DCW [id number]) Functional Tests Five Times Sit to Stand Test Score 2 PT-OP-G Mobility & Gait Start: 10/16/20 13:00 Freq: Status: Active Protocol: Document 01/01/21 16:00 DCW (Rec: 01/01/21 17:38 DCW [id number]) OP Gait Assessment Assistive Devices Assistive Device Small Based Quad Cane Gait Deviations General Gait Pattern Antalgic,Decreased Stride Length Comments Gait Comments poor foot clearance on L, increased tone in L UE with dual tasking PT-OP-K Range of Motion Start: 10/16/20 13:00 Freq: Status: Active Protocol: Document 01/01/21 16:00 DCW (Rec: 01/01/21 17:38 DCW [id number]) Ankle and Foot Goniometric Range of Motion Ankle and Foot Left Active Ankle/Foot ROM WFL No Dorsiflexion with Knee Flexed 10 Dorsiflexion with Knee Extended 5 Comments poor foot clearance with AMB PT-OP-Q Treatments Start: 10/16/20 13:00 Freq: Status: Active Protocol: Document 01/07/21 14:34 DCW (Rec: 01/07/21 15:14 DCW [id number]) Cardio Equipment Recumbent Elliptical (Biodex) Duration (Minutes) 8 Resistance 4->3 Seat Position 15 Gym Equipment Cable Column (Body Solid) Leg Extension Details Single leg Resistance 25# Reps/Time 2x10 Shuttle Recovery Unilateral Squats Resistance 62# Shuttle Recovery Platform Stable Reps/Time 3x10 Bilateral Squats Resistance 100# Shuttle Recovery Platform Stable Reps/Time 2x10 Shuttle Balance 1 Details Red Reps/Duration 10min Comments WBOS and staggered Therapeutic Exercises Standing Exercises Hamstring Curls Standing Exercise Name Hamstring Curls Side bilateral Resistance 10# Reps/Minutes 2x10 Marching Standing Exercise Name Toe-taps Side bilateral Resistance 10# Equipment Used 6 step Reps/Minutes 2x10 PT-OP-T Assessment and Plan Start: 10/16/20 13:00 Freq: Status: Active Protocol: Document 01/07/21 14:34 DCW (Rec: 01/07/21 15:14 DCW [id number]) Physical Therapy Assessment Impairments Impairments Gait,Strength,Tone Goals 3 Impairment poor L sided ankle ROM Short Term Goal (STG) pt will improve dorsiflexion to 10 with knee ext to improve gait kinematics STG Duration 2 weeks Fire Safety Director Goal (LTG) Pt will improve L ankle dorsiflexion to 15 to improve I with AMB and stairs 11/29/20 2 Impairment LE weakness Short Term Goal (STG) Pt will perform 5 sit to stands with UE assist to improve functional mobility and LE strength STG Duration 2 weeks Fire Safety Director Goal (LTG) Pt will complete 12 sit to stands in 30 sec to demonstrate improved community mobility LTG Duration 6 weeks 1 Impairment pt lacks HEP Short Term Goal (STG) Pt will be I with written HEP to maximize functional return STG Duration 2 weeks Assessment Summary Assessment Pt clearly very fatigued today , but doing well with balance. Activity tolerance largest limiting factor. Physical Therapy Plan Frequency and Duration Frequency of Treatment 1-2x/week Duration of Treatment 4weeks Plan of Care Start Date 01/01/21 Plan of Care End Date 01/29/21 Therapeutic Interventions Therapeutic Interventions Gait Training,Home Exercise Program,Manual Therapy, Neuromuscular Re-education, Therapeutic Exercises Next Visit Focus/Plan Next Note Type Treatment Note Next Visit Plan progress quad strengthening, increase ankle arom, address afo use for improved gait kinematics
--- NOTE | 2021-01-10 16:53 | PT.OTN ---
Current Diagnoses Bilateral primary osteoarthritis of knee (01/10/21) Physical Therapy Treatment Note PT-OP-A Visit Information Start: 10/16/20 13:00 Freq: Status: Active Protocol: Document 01/10/21 16:05 DCW (Rec: 01/10/21 16:53 DCW [id number]) Out-Patient Physical Therapy Visit Information Visit Information Visit Type Treatment Note Visit Start Time 16:05 Visit Stop Time 16:45 Total Visit Minutes 40 Visit Number 17 Number of BOX ORDER PERSON Visits 0 Precautions Precautions prior cva with L sided deficits PT-OP-B Current Condition Start: 10/16/20 13:00 Freq: Status: Active Protocol: Document 10/16/20 13:07 OF (Rec: 10/16/20 13:31 OF [id number]) Current Condition History of Current Condition Onset Date ~3yrs prior History of Current Condition Pt states he has had knee pain for at least 3 years, and had a CVA with L sided deficits. He is unsure of timeframe containing CVA, pacemaker placement, LE weakness and pain. Treatment Goals Patient/Caregiver Goals Make my knees stronger Prior Functional Status Baseline Function- ADL's Modified Independent Baseline Function- Mobility Modified Independent Baseline Function- Other Pt has limited endurance walking and performing activities due to L LE weakness PT-OP-C Subjective Start: 10/16/20 13:00 Freq: Status: Active Protocol: Document 01/10/21 16:05 DCW (Rec: 01/10/21 16:53 DCW [id number]) OP-PT Subjective Patient Comments Patient Comments I had some bad leg cramping after last time, I think we need to knock down the weight on some of those exercises. PT-OP-E Functional Tests Start: 10/16/20 13:00 Freq: Status: Active Protocol: Document 01/01/21 16:00 DCW (Rec: 01/01/21 17:38 DCW [id number]) Functional Tests Five Times Sit to Stand Test Score 2 PT-OP-G Mobility & Gait Start: 10/16/20 13:00 Freq: Status: Active Protocol: Document 01/01/21 16:00 DCW (Rec: 01/01/21 17:38 DCW [id number]) OP Gait Assessment Assistive Devices Assistive Device Small Based Quad Cane Gait Deviations General Gait Pattern Antalgic,Decreased Stride Length Comments Gait Comments poor foot clearance on L, increased tone in L UE with dual tasking PT-OP-K Range of Motion Start: 10/16/20 13:00 Freq: Status: Active Protocol: Document 01/01/21 16:00 DCW (Rec: 01/01/21 17:38 DCW [id number]) Ankle and Foot Goniometric Range of Motion Ankle and Foot Left Active Ankle/Foot ROM WFL No Dorsiflexion with Knee Flexed 10 Dorsiflexion with Knee Extended 5 Comments poor foot clearance with AMB PT-OP-Q Treatments Start: 10/16/20 13:00 Freq: Status: Active Protocol: Document 01/10/21 16:05 DCW (Rec: 01/10/21 16:53 DCW [id number]) Cardio Equipment Recumbent Elliptical (Biodex) Duration (Minutes) 8 Resistance 4 Seat Position 15 Gym Equipment Cable Column (Body Solid) Leg Extension Details Single leg Resistance 25# Reps/Time 2x10 Shuttle Recovery Unilateral Squats Resistance 62# Shuttle Recovery Platform Stable Reps/Time 3x10 Bilateral Squats Resistance 100# Shuttle Recovery Platform Stable Reps/Time 2x10 Shuttle Balance 1 Details Red Reps/Duration 10min Comments WBOS and staggered Therapeutic Exercises Standing Exercises Hamstring Curls Standing Exercise Name Hamstring Curls Side bilateral Resistance 10# Reps/Minutes 2x10 Marching Standing Exercise Name Toe-taps Side bilateral Resistance 10# Equipment Used 6 step Reps/Minutes 2x10 PT-OP-T Assessment and Plan Start: 10/16/20 13:00 Freq: Status: Active Protocol: Document 01/10/21 16:05 DCW (Rec: 01/10/21 16:53 DCW [id number]) Physical Therapy Assessment Impairments Impairments Gait,Strength,Tone Goals 3 Impairment poor L sided ankle ROM Short Term Goal (STG) pt will improve dorsiflexion to 10 with knee ext to improve gait kinematics STG Duration 2 weeks Assisted Goal (LTG) Pt will improve L ankle dorsiflexion to 15 to improve I with AMB and stairs 11/29/20 2 Impairment LE weakness Short Term Goal (STG) Pt will perform 5 sit to stands with UE assist to improve functional mobility and LE strength STG Duration 2 weeks Nailing Machine Operator Goal (LTG) Pt will complete 12 sit to stands in 30 sec to demonstrate improved community mobility LTG Duration 6 weeks 1 Impairment pt lacks HEP Short Term Goal (STG) Pt will be I with written HEP to maximize functional return STG Duration 2 weeks Assessment Summary Assessment Pt has largely plateaued, agrees that he needs to transition to independent exercise, agreeable to discharge at this time. Physical Therapy Plan Frequency and Duration Frequency of Treatment 1-2x/week Duration of Treatment 4weeks Plan of Care Start Date 01/01/21 Plan of Care End Date 01/29/21 Therapeutic Interventions Therapeutic Interventions Gait Training,Home Exercise Program,Manual Therapy, Neuromuscular Re-education, Therapeutic Exercises Discharge Physical Therapy Discharge Reasons Plateau in Progress Next Visit Focus/Plan Next Note Type Discharge Summary
== END 2021-04-02 09:44 ==
LOC: PHYS 16:00
PROVIDERS: PCP Family Medicine; Referring Provider Family Medicine; Visit Provider Family Medicine
DX: M17.0 Bilateral primary osteoarthritis of knee (principal)
CPT/HCPCS: 97110; 97112; 97116; 97161

== ENCOUNTER 2022-03-04 15:15 | Outpatient (RCR) | payer OTHER, SELFPAY ==
--- NOTE | 2022-01-01 17:21 | PT.OIE ---
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) Other reduced mobility (01/01/22) Other specified health status (01/01/22) Past Medical History (Last Updated 09/13/21 @ 09:09 by Nathan Ga MD) Atrial fibrillation Chicken pox Chronic back pain Complete heart block CVA (cerebral vascular accident) (~11/2017) Kidney stones (~1975) Mantle cell lymphoma (~10/2017) Measles Melanoma (~1979) Mild aortic stenosis by prior echocardiogram (08/13/11) Mumps Obesity Onychomycosis Osteopenia of femoral neck, bilateral (~12/2018) Pacemaker (~04/2018) Skin cancer (~2004) Squamous cell carcinoma (08/2019) TIA (transient ischemic attack) (~2009) Tinea pedis Wears glasses Past Surgical History (Last Reviewed 05/30/21 @ 17:18 by Kasey Tineo MD) Anesthesia History of tonsillectomy S/P bronchoscopy with biopsy S/P TAVR (transcatheter aortic valve replacement) (~04/2018) Status post cardiac pacemaker procedure (~05/14/18) Visit Care Team Role Provider Type Neal Gonzales MD Primary Care Provider Physician Specialty: Internal Medicine Pediatrics Address: [address] [place] [address], [id number] Phone: Fax: Email: [email or web address] Jonatan Blue MD Attending Provider Non-Staff Referring Provider Specialty: Internal Medicine Address: [address] [place] [address], [id number] Email: Physical Therapy Initial Evaluation PT-OP-A Visit Information Start: 12/31/21 14:12 Freq: Status: Active Protocol: Document 01/01/22 12:00 AW (Rec: 12/31/21 17:20 AW [id number]) Out-Patient Physical Therapy Visit Information Visit Information Visit Type Initial Evaluation Visit Start Time 10:30 Visit Stop Time 11:50 Total Visit Minutes 80 Visit Number 1 Evaluation Information Evaluation Date 01/01/22 Precautions Precautions pacemaker PT-OP-B Current Condition Start: 12/31/21 14:12 Freq: Status: Active Protocol: Document 01/01/22 12:00 AW (Rec: 12/31/21 17:20 AW [id number]) Current Condition History of Current Condition Onset Date October Current Complaints left arm swelling, heaviness History of Current Condition Left arm swelling began 6-8 weeks ago and started out as a band just below the elbow. It has spread down to the hand and is now above the elbow. It hurts to extend wrist or bear weight on left hand. It is harder to lift left arm above shoulder level. 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 Treated with chemo via port-a-cath a few years ago. 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 He is right hand dominant and walks with a quad cane. Pt notes he had melanoma removed 30-40 years ago with likely lymph node dissection at that time. PMH also includes aortic valve replacement, pacemaker, and cardiac rehab in 2019. Jewel lives with his supportive spouse, Christine. Prior Treatments and Tests - MLD over the past month with local LMT. - PT for back pain before CVA. PT post-CVA focused on gait and balance. PT more recently for knee pain. Treatment Goals Patient/Caregiver Goals Reduce swelling to be able to use left arm more functionally . Personal Factors Other Personal Factors That May Effect BMI is ~40, CVA in 2018 with Therapy/Recovery left hemiparesis PT-OP-C Subjective Start: 12/31/21 14:12 Freq: Status: Active Protocol: Document 01/01/22 12:00 AW (Rec: 01/01/22 12:17 AW [id number]) Patient Questionnaires Lymphedema Life Impact Score Lymphedema Score see copy scanned to EMR OP-PT Pain Assessment Pain Assessment Grid Paper Pain Assessment Grid Completed No: pt denies pain PT-OP-F Manual Assessment Start: 12/31/21 14:12 Freq: Status: Active Protocol: Document 01/01/22 12:00 AW (Rec: 01/01/22 12:17 AW [id number]) Manual Assessments Other Manual Assessments Other Manual Assessments Mild fibrotic changes noted in forearm. PT-OP-G Mobility & Gait Start: 12/31/21 14:12 Freq: Status: Active Protocol: Document 01/01/22 12:00 AW (Rec: 01/01/22 12:17 AW [id number]) OP Mobility Evaluation Bed Mobility Supine to and from Sit min A on tx table Transfers Sit to Stand Definite use of hands Bed to Chair Transfers Uses quad cane SBA OP Gait Assessment Comments Gait Comments Pt ambulates with quad cane held in right hand. LE extensor tone increases with distance and pt drags toe ~50% of steps. PT-OP-M Strength Start: 12/31/21 14:12 Freq: Status: Active Protocol: Document 01/01/22 12:00 AW (Rec: 01/01/22 12:23 AW [id number]) Shoulder Strength Shoulder Manual Muscle Testing Left Comments Grossly 4-/5 to 4/5 with heaviness affecting strength PT-OP-N Lymphedema Start: 12/31/21 14:12 Freq: Status: Active Protocol: Document 01/01/22 12:00 AW (Rec: 01/01/22 12:01 AW [id number]) Lymphedema Measurements Upper Extremity Circumference Measurements Right Unaffected MCP 23.4 cm Dorsum of Hand 24.5 cm Wrist 22.4 cm 10 cm From Wrist Crease 24.8 cm 20 cm From Wrist Crease 32 cm 30 cm From Wrist Crease 34 cm 40 cm From Wrist Crease 35.1 cm Elbow Joint 34 cm Axilla 42.5 cm Left Affected MCP 24.5 cm Dorsum of Hand 26.7 cm Wrist 24.9 cm 10 cm From Wrist Crease 31.7 cm 20 cm From Wrist Crease 40.6 cm 30 cm From Wrist Crease 41.3 cm 40 cm From Wrist Crease 45 cm Elbow Joint 40.2 cm Axilla 46.3 cm Comments Lymphedema Comments Pt states swelling and erythema began just distal to the elbow. Erythema is mild but present from wrist to elbow and newly just above elbow. No temperature difference side to side. Of note, pt also has some bruising around his pacemaker site. PT-OP-Q Treatments Start: 12/31/21 14:12 Freq: Status: Active Protocol: Document 01/01/22 12:00 AW (Rec: 01/01/22 12:23 AW [id number]) Lymphedema Treatment Manual Lymphatic Drainage Location LUE Duration 30 min Comments Focused on AIA and SALMA pathways to stimulate lymphangiomotoricity. Lymphedema Wrapping Body Location LUE Materials Tricofix, artifex, mollelast finger wraps, and comprilan 6 cm, 8 cm, and 10 cm above elbow but not quite to axilla today. Sequential Lymphedema Exercises Comments Discussed but did not perform. Provided handouts. Patient Education Other Educated pt and his spouse on superficial lymphatic system and rationale for complete decongestive therapy to include MLD, skin care, compression, and exercise. Also discussed need for lifelong management. PT-OP-T Assessment and Plan Start: 12/31/21 14:12 Freq: Status: Active Protocol: Document 01/01/22 12:00 AW (Rec: 01/01/22 17:20 AW [id number]) Physical Therapy Assessment Rehab Potential Rehabilitation Potential Good Evaluation Complexity Number of Personal Factors/Comorbidities 3 or More Number of Body Systems Impaired 4 or More Clinical Presentation at Evaluation Evolving Impairments Impairments Edema,Functional Activities, Pain,Posture,ROM,Sensation, Soft Tissue Mobility,Strength Goals Two Impairment functional use left arm [facility] Goal (LTG) Pt will regain functional use of his left arm for ADL and IADL management LTG Duration 03/26/22 One Impairment lymphedema LUE Short Term Goal (STG) Pt will be instructed in all aspects of lymphedema care including skin care, manual lymphatic drainage, lymphedema exercises, and compression garments. STG Duration 02/12/22 Rn Stars Goal (LTG) Pt will demonstrate reduction and stabilization of lymphedema (no change greater than 1 cm over the course of 1 week) and be independent with all aspects of lymphedema self-care including donning/ doffing compression garment or alternative. LTG Duration 03/26/22 Assessment Summary Assessment Jewel is a 71 yo man with complicated medical history including CVA with resultant left hemiparesis, CAD with valve replacement and pacemaker, and mantle cell lymphoma. He has remote history of melanoma with lymph node dissection which may be contributing to current risk profile for lymphedema. Jewel presents with swollen and erythematous left arm. Incidentally, he also has bruising over his pacemaker site. Swelling and associated heaviness are limiting his function. Jewel tolerated manual lymphatic drainage and compression bandaging today without complaint. His attended the treatment today and was receptive to education on MLD and wrapping at home. Jewel and his were educated on need for complete decongestive therapy to include MLD, compression, exercise, and skin care. Will continue to educate them on appropriate care for the swollen limb as pt's spouse may be able to assist with ongoing care at home. Jewel should benefit from physical therapy to decrease lymphedema , improve function, and educate him on lymphedema care for long-term management. Physical Therapy Plan Frequency and Duration Frequency of Treatment 3x/Week Duration of treatment (weeks) 12 Plan of Care Start Date 01/01/22 Plan of Care End Date 03/26/22 Therapeutic Interventions Therapeutic Interventions Home Exercise Program, Lymphedema Management,Manual Therapy,Self-Care/Home Management,Soft Tissue Mobilization,Therapeutic Activities,Therapeutic Exercises Modalities Vasopneumatic Devices Next Visit Focus/Plan Next Note Type Treatment Note Next Visit Plan Assess response to initial bandaging. Measure and continue CDT with MLD, compression, and exercise. Continue education with pt and spouse.
--- NOTE | 2022-01-01 17:21 | PT.OPPOC ---
Physical, Occupational & Speech Therapy At 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) Other reduced mobility (01/01/22) Other specified health status (01/01/22) Visit Care Team Role Provider Type Neal Gonzales MD Primary Care Provider Physician Specialty: Internal Medicine Pediatrics Address: [address] [place] [address], [address] Phone: Fax: Email: [email or web address] Jonatan Blue MD Attending Provider Non-Staff Referring Provider Specialty: Internal Medicine Address: [address] [place] [address], [id number] Email: Plan Of Care PT-OP-T Assessment and Plan Start: 12/31/21 14:12 Freq: Status: Active Protocol: Document 01/01/22 12:00 AW (Rec: 01/01/22 17:20 AW [id number]) Physical Therapy Assessment Rehab Potential Rehabilitation Potential Good Evaluation Complexity Number of Personal Factors/Comorbidities 3 or More Number of Body Systems Impaired 4 or More Clinical Presentation at Evaluation Evolving Impairments Impairments Edema,Functional Activities, Pain,Posture,ROM,Sensation, Soft Tissue Mobility,Strength Goals Two Impairment functional use left arm Senior Care Goal (LTG) Pt will regain functional use of his left arm for ADL and IADL management LTG Duration 03/26/22 One Impairment lymphedema LUE Short Term Goal (STG) Pt will be instructed in all aspects of lymphedema care including skin care, manual lymphatic drainage, lymphedema exercises, and compression garments. STG Duration 02/12/22 Rough Rounder Goal (LTG) Pt will demonstrate reduction and stabilization of lymphedema (no change greater than 1 cm over the course of 1 week) and be independent with all aspects of lymphedema self-care including donning/ doffing compression garment or alternative. LTG Duration 03/26/22 Assessment Summary Assessment Jewel is a 71 yo man with complicated medical history including CVA with resultant left hemiparesis, CAD with valve replacement and pacemaker, and mantle cell lymphoma. He has remote history of melanoma with lymph node dissection which may be contributing to current risk profile for lymphedema. Jewel presents with swollen and erythematous left arm. Incidentally, he also has bruising over his pacemaker site. Swelling and associated heaviness are limiting his function. Jewel tolerated manual lymphatic drainage and compression bandaging today without complaint. His attended the treatment today and was receptive to education on MLD and wrapping at home. Jewel and his were educated on need for complete decongestive therapy to include MLD, compression, exercise, and skin care. Will continue to educate them on appropriate care for the swollen limb as pt's spouse may be able to assist with ongoing care at home. Jewel should benefit from physical therapy to decrease lymphedema , improve function, and educate him on lymphedema care for long-term management. Physical Therapy Plan Frequency and Duration Frequency of Treatment 3x/Week Duration of treatment (weeks) 12 Plan of Care Start Date 01/01/22 Plan of Care End Date 03/26/22 Therapeutic Interventions Therapeutic Interventions Home Exercise Program, Lymphedema Management,Manual Therapy,Self-Care/Home Management,Soft Tissue Mobilization,Therapeutic Activities,Therapeutic Exercises Modalities Vasopneumatic Devices Next Visit Focus/Plan Next Note Type Treatment Note Next Visit Plan Assess response to initial bandaging. Measure and continue CDT with MLD, compression, and exercise. Continue education with pt and spouse. Plan of Care Dates Plan of Care Start Date 01/01/22 Plan of Care End Date 03/26/22 Electronically Signed by: Gifty Ellison PT 01/01/22 0982 If you are in agreement with this Plan of Care, please return a signed and dated copy. I have reviewed this Plan of Care and certify that the skilled therapy services above are required to meet the patient?s needs. Physician Signature Date Printed Name and Credentials Clinical Instructor Signature Printed Name and Credentials
--- NOTE | 2022-01-08 12:02 | PT.OTN ---
Current Diagnoses Mantle cell lymphoma, intrathoracic lymph nodes (01/08/22) Lymphedema, not elsewhere classified (01/08/22) Other reduced mobility (01/08/22) Other specified health status (01/08/22) Physical Therapy Treatment Note PT-OP-A Visit Information Start: 12/31/21 14:12 Freq: Status: Active Protocol: Document 01/08/22 09:01 AW (Rec: 01/08/22 12:02 AW [id number]) Out-Patient Physical Therapy Visit Information Visit Information Visit Type Treatment Note Visit Start Time 10:30 Visit Stop Time 11:44 Total Visit Minutes 74 Visit Number 2 Evaluation Information Evaluation Date 01/01/22 Precautions Precautions pacemaker PT-OP-B Current Condition Start: 12/31/21 14:12 Freq: Status: Active Protocol: Document 01/01/22 12:00 AW (Rec: 12/31/21 17:20 AW [id number]) Current Condition History of Current Condition Onset Date October Current Complaints left arm swelling, heaviness History of Current Condition Left arm swelling began 6-8 weeks ago and started out as a band just below the elbow. It has spread down to the hand and is now above the elbow. It hurts to extend wrist or bear weight on left hand. It is harder to lift left arm above shoulder level. 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 Treated with chemo via port-a-cath a few years ago. 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 He is right hand dominant and walks with a quad cane. Pt notes he had melanoma removed 30-40 years ago with likely lymph node dissection at that time. PMH also includes aortic valve replacement, pacemaker, and cardiac rehab in 2019. Jewel lives with his supportive spouse, Christine. Prior Treatments and Tests - MLD over the past month with local LMT. - PT for back pain before CVA. PT post-CVA focused on gait and balance. PT more recently for knee pain. Treatment Goals Patient/Caregiver Goals Reduce swelling to be able to use left arm more functionally . Personal Factors Other Personal Factors That May Effect BMI is ~40, CVA in 2018 with Therapy/Recovery left hemiparesis PT-OP-C Subjective Start: 12/31/21 14:12 Freq: Status: Active Protocol: Document 01/08/22 09:01 AW (Rec: 01/08/22 12:02 AW [id number]) OP-PT Subjective Patient Comments Patient Comments Pt tolerated compression for a few days without major complaint other than mild hand irritation. When he took of the bandages, he noted reduction in hand and wrist swelling. Swelling slowly returned over the course of a few days and pt now feels his swelling is more prominent around the elbow. PT-OP-F Manual Assessment Start: 12/31/21 14:12 Freq: Status: Active Protocol: Document 01/01/22 12:00 AW (Rec: 01/01/22 12:17 AW [id number]) Manual Assessments Other Manual Assessments Other Manual Assessments Mild fibrotic changes noted in forearm. PT-OP-G Mobility & Gait Start: 12/31/21 14:12 Freq: Status: Active Protocol: Document 01/01/22 12:00 AW (Rec: 01/01/22 12:17 AW [id number]) OP Mobility Evaluation Bed Mobility Supine to and from Sit min A on tx table Transfers Sit to Stand Definite use of hands Bed to Chair Transfers Uses quad cane SBA OP Gait Assessment Comments Gait Comments Pt ambulates with quad cane held in right hand. LE extensor tone increases with distance and pt drags toe ~50% of steps. PT-OP-M Strength Start: 12/31/21 14:12 Freq: Status: Active Protocol: Document 01/01/22 12:00 AW (Rec: 01/01/22 12:23 AW [id number]) Shoulder Strength Shoulder Manual Muscle Testing Left Comments Grossly 4-/5 to 4/5 with heaviness affecting strength PT-OP-N Lymphedema Start: 12/31/21 14:12 Freq: Status: Active Protocol: Document 01/08/22 09:01 AW (Rec: 01/08/22 12:02 AW [id number]) Lymphedema Measurements Upper Extremity Circumference Measurements Left Affected MCP 24.7 cm Dorsum of Hand 26 cm Wrist 24.8 cm 10 cm From Wrist Crease 31 cm 15 cm From Wrist Crease 35 cm 20 cm From Wrist Crease 39.4 cm 25 cm From Wrist Crease 40.7 cm 30 cm From Wrist Crease 41.3 cm 35 cm From Wrist Crease 42.1 cm 40 cm From Wrist Crease 44.6 cm Elbow Joint 41 cm Axilla 47 cm Comments Lymphedema Comments Erythema is stable (has not spread) and color has lightened. Still good similarity in temperature side to side. PT-OP-Q Treatments Start: 12/31/21 14:12 Freq: Status: Active Protocol: Document 01/08/22 09:01 AW (Rec: 01/08/22 12:02 AW [id number]) Lymphedema Treatment Manual Lymphatic Drainage Location LUE Duration 30 min Comments Focused on AIA and AAA pathways to stimulate lymphangiomotoricity. Lymphedema Wrapping Body Location LUE Materials Tricofix, artifex, mollelast finger wraps, and comprilan 6 cm, 8 cm, and 10 cm to axilla. Sequential Lymphedema Exercises Location UE Duration 12 min Comments Full sequence. Pt has some difficulty with LUE elevation due to hemiparesis but is able to complete 5 reps all exercises. Patient Education Other Emailed links to online videos to assist with self-MLD and bandaging. Encouraged pt to watch and try self-tx or get help from spouse. 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 STG Duration 02/12/22 Appliance Assembler Goal (LTG) Pt will demonstrate reduction and stabilization of lymphedema (no change greater than 1 cm over the course of 1 week) and be independent with all aspects of lymphedema self-care including donning/ doffing compression garment or alternative. LTG Duration 03/26/22 Assessment Summary Assessment Jewel tolerated compression bandaging well but has not re- wrapped since eval last week. He had some improvement in measurements distally but stable or increased at elbow and proximal. Treatment today focused on MLD and bandaging along with education on pt and his attempting to do self MLD and bandaging between sessions. Pt would certainly benefit from more consistent compression. Physical Therapy Plan Frequency and Duration Frequency of Treatment 3x/Week Duration of treatment (weeks) 12 Plan of Care Start Date 01/01/22 Plan of Care End Date 03/26/22 Therapeutic Interventions Therapeutic Interventions Home Exercise Program, Lymphedema Management,Manual Therapy,Self-Care/Home Management,Soft Tissue Mobilization,Therapeutic Activities,Therapeutic Exercises Modalities Vasopneumatic Devices Next Visit Focus/Plan Next Note Type Treatment Note Next Visit Plan Measure and continue CDT with MLD, compression, and exercise . Continue education with pt and spouse.
--- NOTE | 2022-01-15 16:46 | PT.OTN ---
Current Diagnoses Mantle cell lymphoma, intrathoracic lymph nodes (01/15/22) Lymphedema, not elsewhere classified (01/15/22) Other reduced mobility (01/15/22) Other specified health status (01/15/22) Physical Therapy Treatment Note PT-OP-A Visit Information Start: 12/31/21 14:12 Freq: Status: Active Protocol: Document 01/15/22 14:55 AW (Rec: 01/15/22 16:45 AW [id number]) Out-Patient Physical Therapy Visit Information Visit Information Visit Type Treatment Note Visit Start Time 15:15 Visit Stop Time 16:26 Total Visit Minutes 71 Visit Number 3 Evaluation Information Evaluation Date 01/01/22 Precautions Precautions pacemaker PT-OP-B Current Condition Start: 12/31/21 14:12 Freq: Status: Active Protocol: Document 01/01/22 12:00 AW (Rec: 12/31/21 17:20 AW [id number]) Current Condition History of Current Condition Onset Date October Current Complaints left arm swelling, heaviness History of Current Condition Left arm swelling began 6-8 weeks ago and started out as a band just below the elbow. It has spread down to the hand and is now above the elbow. It hurts to extend wrist or bear weight on left hand. It is harder to lift left arm above shoulder level. 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 Treated with chemo via port-a-cath a few years ago. 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 He is right hand dominant and walks with a quad cane. Pt notes he had melanoma removed 30-40 years ago with likely lymph node dissection at that time. PMH also includes aortic valve replacement, pacemaker, and cardiac rehab in 2019. Jewel lives with his supportive spouse, Christine. Prior Treatments and Tests - MLD over the past month with local LMT. - PT for back pain before CVA. PT post-CVA focused on gait and balance. PT more recently for knee pain. Treatment Goals Patient/Caregiver Goals Reduce swelling to be able to use left arm more functionally . Personal Factors Other Personal Factors That May Effect BMI is ~40, CVA in 2018 with Therapy/Recovery left hemiparesis PT-OP-C Subjective Start: 12/31/21 14:12 Freq: Status: Active Protocol: Document 01/15/22 14:55 AW (Rec: 01/15/22 16:45 AW [id number]) OP-PT Subjective Patient Comments Patient Comments Did ok with compression but did not re-wrap. Has not yet watched videos for self- wrapping. Has been doing UE lymphedema exercises at home. PT-OP-F Manual Assessment Start: 12/31/21 14:12 Freq: Status: Active Protocol: Document 01/01/22 12:00 AW (Rec: 01/01/22 12:17 AW [id number]) Manual Assessments Other Manual Assessments Other Manual Assessments Mild fibrotic changes noted in forearm. PT-OP-G Mobility & Gait Start: 12/31/21 14:12 Freq: Status: Active Protocol: Document 01/01/22 12:00 AW (Rec: 01/01/22 12:17 AW [id number]) OP Mobility Evaluation Bed Mobility Supine to and from Sit min A on tx table Transfers Sit to Stand Definite use of hands Bed to Chair Transfers Uses quad cane SBA OP Gait Assessment Comments Gait Comments Pt ambulates with quad cane held in right hand. LE extensor tone increases with distance and pt drags toe ~50% of steps. PT-OP-M Strength Start: 12/31/21 14:12 Freq: Status: Active Protocol: Document 01/01/22 12:00 AW (Rec: 01/01/22 12:23 AW [id number]) Shoulder Strength Shoulder Manual Muscle Testing Left Comments Grossly 4-/5 to 4/5 with heaviness affecting strength PT-OP-N Lymphedema Start: 12/31/21 14:12 Freq: Status: Active Protocol: Document 01/15/22 14:55 AW (Rec: 01/15/22 16:45 AW [id number]) Lymphedema Measurements Upper Extremity Circumference Measurements Left Affected MCP 24.8 cm Dorsum of Hand 26.3 cm Wrist 24.9 cm 5 cm From Wrist Crease 28.3 cm 10 cm From Wrist Crease 31 cm 15 cm From Wrist Crease 36 cm 20 cm From Wrist Crease 40.5 cm 25 cm From Wrist Crease 41.2 cm 30 cm From Wrist Crease 41.1 cm 35 cm From Wrist Crease 42.3 cm 40 cm From Wrist Crease 43.5 cm Elbow Joint 41 cm Axilla 46.6 cm Comments Lymphedema Comments Discoloration has lightened further and has receded slightly toward the elbow. PT-OP-Q Treatments Start: 12/31/21 14:12 Freq: Status: Active Protocol: Document 01/15/22 14:55 AW (Rec: 01/15/22 16:45 AW [id number]) Cardio Equipment Upper Body Ergometer (UBE) Duration (Minutes) 8 RPM 80 Height 4 Other f/b Lymphedema Treatment Manual Lymphatic Drainage Location LUE Duration 30 min Comments Focused on AIA and AAA pathways to stimulate lymphangiomotoricity. Lymphedema Wrapping Body Location LUE Materials Tricofix, artifex, mollelast finger wraps, and comprilan 6 cm, 8 cm, and 10 cm to axilla. Sequential Lymphedema Exercises Location UE Duration 5 min Comments Full sequence. Pt has some difficulty with LUE elevation due to hemiparesis but is able to complete 5 reps all exercises. Patient Education Other Confirmed pt has video links. Continued to encourage pt and his spouse to watch and practice with the videos to improve response to treatment with more consistent compression therapy. 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 STG Duration 02/12/22 Alf Goal (LTG) Pt will demonstrate reduction and stabilization of lymphedema (no change greater than 1 cm over the course of 1 week) and be independent with all aspects of lymphedema self-care including donning/ doffing compression garment or alternative. LTG Duration 03/26/22 Assessment Summary Assessment No significant reduction this week. All measurements were essentially stable. Pt reports improved hand and wrist definition when wraps come off but has not yet practiced wrapping himself. Continued to encourage pt and his to watch and practice with the videos emailed to them. Educated on benefits of more consistent compression. Physical Therapy Plan Frequency and Duration Frequency of Treatment 3x/Week Duration of treatment (weeks) 12 Plan of Care Start Date 01/01/22 Plan of Care End Date 03/26/22 Therapeutic Interventions Therapeutic Interventions Home Exercise Program, Lymphedema Management,Manual Therapy,Self-Care/Home Management,Soft Tissue Mobilization,Therapeutic Activities,Therapeutic Exercises Modalities Vasopneumatic Devices Next Visit Focus/Plan Next Note Type Treatment Note Next Visit Plan Measure and continue CDT with MLD, compression, and exercise . Continue education with pt and spouse.
--- NOTE | 2022-01-28 16:41 | PT.OTN ---
Current Diagnoses Mantle cell lymphoma, intrathoracic lymph nodes (01/28/22) Lymphedema, not elsewhere classified (01/28/22) Other reduced mobility (01/28/22) Other specified health status (01/28/22) Physical Therapy Treatment Note PT-OP-A Visit Information Start: 12/31/21 14:12 Freq: Status: Active Protocol: Document 01/28/22 15:17 AW (Rec: 01/28/22 16:41 AW [id number]) Out-Patient Physical Therapy Visit Information Visit Information Visit Type Treatment Note Visit Start Time 15:15 Visit Stop Time 16:28 Total Visit Minutes 73 Visit Number 4 Evaluation Information Evaluation Date 01/01/22 Precautions Precautions pacemaker PT-OP-B Current Condition Start: 12/31/21 14:12 Freq: Status: Active Protocol: Document 01/01/22 12:00 AW (Rec: 12/31/21 17:20 AW [id number]) Current Condition History of Current Condition Onset Date October Current Complaints left arm swelling, heaviness History of Current Condition Left arm swelling began 6-8 weeks ago and started out as a band just below the elbow. It has spread down to the hand and is now above the elbow. It hurts to extend wrist or bear weight on left hand. It is harder to lift left arm above shoulder level. 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 Treated with chemo via port-a-cath a few years ago. 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 He is right hand dominant and walks with a quad cane. Pt notes he had melanoma removed 30-40 years ago with likely lymph node dissection at that time. PMH also includes aortic valve replacement, pacemaker, and cardiac rehab in 2019. Jewel lives with his supportive spouse, Christine. Prior Treatments and Tests - MLD over the past month with local LMT. - PT for back pain before CVA. PT post-CVA focused on gait and balance. PT more recently for knee pain. Treatment Goals Patient/Caregiver Goals Reduce swelling to be able to use left arm more functionally . Personal Factors Other Personal Factors That May Effect BMI is ~40, CVA in 2018 with Therapy/Recovery left hemiparesis PT-OP-C Subjective Start: 12/31/21 14:12 Freq: Status: Active Protocol: Document 01/28/22 15:17 AW (Rec: 01/28/22 16:41 AW [id number]) OP-PT Subjective Patient Comments Patient Comments Pt has not wrapped himself at home. Swelling seems stable. He continues to do UE lymph exercises and has attempted to do self MLD. PT-OP-F Manual Assessment Start: 12/31/21 14:12 Freq: Status: Active Protocol: Document 01/01/22 12:00 AW (Rec: 01/01/22 12:17 AW [id number]) Manual Assessments Other Manual Assessments Other Manual Assessments Mild fibrotic changes noted in forearm. PT-OP-G Mobility & Gait Start: 12/31/21 14:12 Freq: Status: Active Protocol: Document 01/01/22 12:00 AW (Rec: 01/01/22 12:17 AW [id number]) OP Mobility Evaluation Bed Mobility Supine to and from Sit min A on tx table Transfers Sit to Stand Definite use of hands Bed to Chair Transfers Uses quad cane SBA OP Gait Assessment Comments Gait Comments Pt ambulates with quad cane held in right hand. LE extensor tone increases with distance and pt drags toe ~50% of steps. PT-OP-M Strength Start: 12/31/21 14:12 Freq: Status: Active Protocol: Document 01/01/22 12:00 AW (Rec: 01/01/22 12:23 AW [id number]) Shoulder Strength Shoulder Manual Muscle Testing Left Comments Grossly 4-/5 to 4/5 with heaviness affecting strength PT-OP-N Lymphedema Start: 12/31/21 14:12 Freq: Status: Active Protocol: Document 01/28/22 15:17 AW (Rec: 01/28/22 16:41 AW [id number]) Lymphedema Measurements Upper Extremity Circumference Measurements Left Affected MCP 24.5 cm Dorsum of Hand 25.3 cm Wrist 25.4 cm 5 cm From Wrist Crease 27.6 cm 10 cm From Wrist Crease 30.3 cm 15 cm From Wrist Crease 36.3 cm 20 cm From Wrist Crease 40.9 cm 25 cm From Wrist Crease 41.4 cm 30 cm From Wrist Crease 42.3 cm 35 cm From Wrist Crease 43.2 cm 40 cm From Wrist Crease 44.2 cm Elbow Joint 42.3 cm Comments Lymphedema Comments Increasing density of forearm tissue noted today. PT-OP-Q Treatments Start: 12/31/21 14:12 Freq: Status: Active Protocol: Document 01/28/22 15:17 AW (Rec: 01/28/22 16:41 AW [id number]) Cardio Equipment Upper Body Ergometer (UBE) Duration (Minutes) 8 RPM 80 Height 4 Other f/b Lymphedema Treatment Manual Lymphatic Drainage Location LUE Duration 30 min Comments Focused on AIA and AAA pathways to stimulate lymphangiomotoricity. Lymphedema Wrapping Body Location LUE Materials Tricofix, artifex, mollelast finger wraps, and comprilan 6 cm, 8 cm, and 10 cm to axilla. Sequential Lymphedema Exercises Location UE Duration 5 min Comments Full sequence. Pt has some difficulty with LUE elevation due to hemiparesis but is able to complete 5 reps all exercises. Patient Education Other Emailed video links to pt's . Reenforced that prognosis is guarded unless pt can get some regular compression. PT-OP-T Assessment and Plan Start: 12/31/21 14:12 Freq: Status: Active Protocol: Document 01/28/22 15:17 AW (Rec: 01/28/22 16:41 AW [id number]) Physical Therapy Assessment Goals Two Impairment functional use left arm Custodial Goal (LTG) Pt will regain functional use of his left arm for ADL and IADL management LTG Duration 03/26/22 One Impairment lymphedema LUE Short Term Goal (STG) Pt will be instructed in all aspects of lymphedema care including skin care, manual lymphatic drainage, lymphedema exercises, and compression garments. STG Duration 02/12/22 Highway Safety Engineer Goal (LTG) Pt will demonstrate reduction and stabilization of lymphedema (no change greater than 1 cm over the course of 1 week) and be independent with all aspects of lymphedema self-care including donning/ doffing compression garment or alternative. LTG Duration 03/26/22 Assessment Summary Assessment Meaurements remain stable. Forearm tissue appears to have more significant fibrotic changes today. Pt has had difficulty scheduling regular appointments due to therapists being solidly booked. Pt has not been able to manage compression bandaging at home. Continued to educate pt today that consistent compression would improve prognosis. Physical Therapy Plan Frequency and Duration Frequency of Treatment 3x/Week Duration of treatment (weeks) 12 Plan of Care Start Date 01/01/22 Plan of Care End Date 03/26/22 Therapeutic Interventions Therapeutic Interventions Home Exercise Program, Lymphedema Management,Manual Therapy,Self-Care/Home Management,Soft Tissue Mobilization,Therapeutic Activities,Therapeutic Exercises Modalities Vasopneumatic Devices Next Visit Focus/Plan Next Note Type Treatment Note Next Visit Plan Measure and continue CDT with MLD, compression, and exercise . Continue education with pt and spouse.
--- NOTE | 2022-02-04 16:37 | PT.OTN ---
Current Diagnoses Mantle cell lymphoma, intrathoracic lymph nodes (02/04/22) Lymphedema, not elsewhere classified (02/04/22) Other reduced mobility (02/04/22) Other specified health status (02/04/22) Physical Therapy Treatment Note PT-OP-A Visit Information Start: 12/31/21 14:12 Freq: Status: Active Protocol: Document 02/04/22 14:14 AW (Rec: 02/04/22 16:37 AW [id number]) Out-Patient Physical Therapy Visit Information Visit Information Visit Type Treatment Note Visit Start Time 15:15 Visit Stop Time 16:15 Total Visit Minutes 60 Visit Number 5 Evaluation Information Evaluation Date 01/01/22 Precautions Precautions pacemaker PT-OP-B Current Condition Start: 12/31/21 14:12 Freq: Status: Active Protocol: Document 01/01/22 12:00 AW (Rec: 12/31/21 17:20 AW [id number]) Current Condition History of Current Condition Onset Date October Current Complaints left arm swelling, heaviness History of Current Condition Left arm swelling began 6-8 weeks ago and started out as a band just below the elbow. It has spread down to the hand and is now above the elbow. It hurts to extend wrist or bear weight on left hand. It is harder to lift left arm above shoulder level. 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 Treated with chemo via port-a-cath a few years ago. 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 He is right hand dominant and walks with a quad cane. Pt notes he had melanoma removed 30-40 years ago with likely lymph node dissection at that time. PMH also includes aortic valve replacement, pacemaker, and cardiac rehab in 2019. Jewel lives with his supportive spouse, Christine. Prior Treatments and Tests - MLD over the past month with local LMT. - PT for back pain before CVA. PT post-CVA focused on gait and balance. PT more recently for knee pain. Treatment Goals Patient/Caregiver Goals Reduce swelling to be able to use left arm more functionally . Personal Factors Other Personal Factors That May Effect BMI is ~40, CVA in 2018 with Therapy/Recovery left hemiparesis PT-OP-C Subjective Start: 12/31/21 14:12 Freq: Status: Active Protocol: Document 02/04/22 14:14 AW (Rec: 12/06/22 16:37 AW [id number]) OP-PT Subjective Patient Comments Patient Comments Jewel wrapped himself one time since last visit. Says his arm looked lumpy when he removed the bandages. He thinks his wrap job was inconsistent. PT-OP-F Manual Assessment Start: 12/31/21 14:12 Freq: Status: Active Protocol: Document 01/01/22 12:00 AW (Rec: 01/01/22 12:17 AW [id number]) Manual Assessments Other Manual Assessments Other Manual Assessments Mild fibrotic changes noted in forearm. PT-OP-G Mobility & Gait Start: 12/31/21 14:12 Freq: Status: Active Protocol: Document 01/01/22 12:00 AW (Rec: 01/01/22 12:17 AW [id number]) OP Mobility Evaluation Bed Mobility Supine to and from Sit min A on tx table Transfers Sit to Stand Definite use of hands Bed to Chair Transfers Uses quad cane SBA OP Gait Assessment Comments Gait Comments Pt ambulates with quad cane held in right hand. LE extensor tone increases with distance and pt drags toe ~50% of steps. PT-OP-M Strength Start: 12/31/21 14:12 Freq: Status: Active Protocol: Document 01/01/22 12:00 AW (Rec: 01/01/22 12:23 AW [id number]) Shoulder Strength Shoulder Manual Muscle Testing Left Comments Grossly 4-/5 to 4/5 with heaviness affecting strength PT-OP-N Lymphedema Start: 12/31/21 14:12 Freq: Status: Active Protocol: Document 02/04/22 14:14 AW (Rec: 02/04/22 16:37 AW [id number]) Lymphedema Measurements Upper Extremity Circumference Measurements Left Affected MCP 24.2 cm Dorsum of Hand 25.3 cm Wrist 25.4 cm 5 cm From Wrist Crease 28 cm 10 cm From Wrist Crease 30.8 cm 15 cm From Wrist Crease 36.8 cm 20 cm From Wrist Crease 41.1 cm 25 cm From Wrist Crease 41.7 cm 30 cm From Wrist Crease 42 cm 35 cm From Wrist Crease 43.7 cm 40 cm From Wrist Crease 43.8 cm Elbow Joint 42.5 cm Comments Lymphedema Comments Stable measurements. PT-OP-Q Treatments Start: 12/31/21 14:12 Freq: Status: Active Protocol: Document 02/04/22 14:14 AW (Rec: 02/04/22 16:37 AW [id number]) Cardio Equipment Upper Body Ergometer (UBE) Duration (Minutes) 8 RPM 80 Height 4 Other f/b Lymphedema Treatment Manual Lymphatic Drainage Location LUE Duration 30 min Comments Focused on AIA and AAA pathways to stimulate lymphangiomotoricity. Lymphedema Wrapping Body Location LUE Materials Tricofix, artifex, and comprilan 6 cm, 8 cm, and 10 cm to axilla. No finger wraps today per pt request. Added tubigrip size G as a second layer today for additional compression. Also dispensed tubigrip size F for pt to use as a night time alternative. Sequential Lymphedema Exercises Location UE Duration 5 min Comments Full sequence. Pt has some difficulty with LUE elevation due to hemiparesis but is able to complete 5 reps all exercises. Patient Education Other Educated pt to watch fingers since not wrapped today. If finger swelling increases, fingers tingle, pt to remove bandages. PT-OP-T Assessment and Plan Start: 12/31/21 14:12 Freq: Status: Active Protocol: Document 02/04/22 14:14 AW (Rec: 02/04/22 16:37 AW [id number]) Physical Therapy Assessment Goals Two Impairment functional use left arm Aniline Press Worker Goal (LTG) Pt will regain functional use of his left arm for ADL and IADL management LTG Duration 03/26/22 One Impairment lymphedema LUE Short Term Goal (STG) Pt will be instructed in all aspects of lymphedema care including skin care, manual lymphatic drainage, lymphedema exercises, and compression garments. STG Duration 02/12/22 Aniline Press Worker Goal (LTG) Pt will demonstrate reduction and stabilization of lymphedema (no change greater than 1 cm over the course of 1 week) and be independent with all aspects of lymphedema self-care including donning/ doffing compression garment or alternative. LTG Duration 03/26/22 Assessment Summary Assessment Pt continues to lack regular compression but has attempted to wrap himself. His would also be able to assist him with wrapping at home, Provided Tubigrip sizes F and G today for pt to use as a second layer of compression or to trial at night as an alternative. Next appointment in two days. Physical Therapy Plan Frequency and Duration Frequency of Treatment 3x/Week Duration of treatment (weeks) 12 Plan of Care Start Date 01/01/22 Plan of Care End Date 03/26/22 Therapeutic Interventions Therapeutic Interventions Home Exercise Program, Lymphedema Management,Manual Therapy,Self-Care/Home Management,Soft Tissue Mobilization,Therapeutic Activities,Therapeutic Exercises Modalities Vasopneumatic Devices Next Visit Focus/Plan Next Note Type Treatment Note Next Visit Plan Measure and continue CDT with MLD, compression, and exercise . Continue education with pt and spouse.
--- NOTE | 2022-02-06 16:57 | PT.OTN ---
Current Diagnoses Mantle cell lymphoma, intrathoracic lymph nodes (02/06/22) Lymphedema, not elsewhere classified (02/06/22) Other reduced mobility (02/06/22) Other specified health status (02/06/22) Physical Therapy Treatment Note PT-OP-A Visit Information Start: 12/31/21 14:12 Freq: Status: Active Protocol: Document 02/06/22 16:49 AW (Rec: 02/06/22 16:57 AW [id number]) Out-Patient Physical Therapy Visit Information Visit Information Visit Type Treatment Note Visit Start Time 16:00 Visit Stop Time 16:44 Total Visit Minutes 44 Visit Number 6 Evaluation Information Evaluation Date 01/01/22 Precautions Precautions pacemaker PT-OP-B Current Condition Start: 12/31/21 14:12 Freq: Status: Active Protocol: Document 01/01/22 12:00 AW (Rec: 12/31/21 17:20 AW [id number]) Current Condition History of Current Condition Onset Date October Current Complaints left arm swelling, heaviness History of Current Condition Left arm swelling began 6-8 weeks ago and started out as a band just below the elbow. It has spread down to the hand and is now above the elbow. It hurts to extend wrist or bear weight on left hand. It is harder to lift left arm above shoulder level. 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 Treated with chemo via port-a-cath a few years ago. 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 He is right hand dominant and walks with a quad cane. Pt notes he had melanoma removed 30-40 years ago with likely lymph node dissection at that time. PMH also includes aortic valve replacement, pacemaker, and cardiac rehab in 2019. Jewel lives with his supportive spouse, Christine. Prior Treatments and Tests - MLD over the past month with local LMT. - PT for back pain before CVA. PT post-CVA focused on gait and balance. PT more recently for knee pain. Treatment Goals Patient/Caregiver Goals Reduce swelling to be able to use left arm more functionally . Personal Factors Other Personal Factors That May Effect BMI is ~40, CVA in 2018 with Therapy/Recovery left hemiparesis PT-OP-C Subjective Start: 12/31/21 14:12 Freq: Status: Active Protocol: Document 02/06/22 16:49 AW (Rec: 12/08/22 16:57 AW [id number]) OP-PT Subjective Patient Comments Patient Comments Jewel has been using tubigrip since he removed his bandages yesterday. PT-OP-F Manual Assessment Start: 12/31/21 14:12 Freq: Status: Active Protocol: Document 01/01/22 12:00 AW (Rec: 01/01/22 12:17 AW [id number]) Manual Assessments Other Manual Assessments Other Manual Assessments Mild fibrotic changes noted in forearm. PT-OP-G Mobility & Gait Start: 12/31/21 14:12 Freq: Status: Active Protocol: Document 01/01/22 12:00 AW (Rec: 01/01/22 12:17 AW [id number]) OP Mobility Evaluation Bed Mobility Supine to and from Sit min A on tx table Transfers Sit to Stand Definite use of hands Bed to Chair Transfers Uses quad cane SBA OP Gait Assessment Comments Gait Comments Pt ambulates with quad cane held in right hand. LE extensor tone increases with distance and pt drags toe ~50% of steps. PT-OP-M Strength Start: 12/31/21 14:12 Freq: Status: Active Protocol: Document 01/01/22 12:00 AW (Rec: 01/01/22 12:23 AW [id number]) Shoulder Strength Shoulder Manual Muscle Testing Left Comments Grossly 4-/5 to 4/5 with heaviness affecting strength PT-OP-N Lymphedema Start: 12/31/21 14:12 Freq: Status: Active Protocol: Document 02/06/22 16:49 AW (Rec: 02/06/22 16:57 AW [id number]) Lymphedema Measurements Upper Extremity Circumference Measurements Left Affected MCP 24.2 cm Dorsum of Hand 26.2 cm Wrist 24.3 cm 5 cm From Wrist Crease 27.6 cm 10 cm From Wrist Crease 30.5 cm 15 cm From Wrist Crease 38 cm 20 cm From Wrist Crease 41.2 cm 25 cm From Wrist Crease 40.1 cm 30 cm From Wrist Crease 40.6 cm 35 cm From Wrist Crease 43.9 cm 40 cm From Wrist Crease 46 cm - Distances from volar crease Comments Lymphedema Comments Stable measurements but with slight reduction at wrist. PT-OP-Q Treatments Start: 12/31/21 14:12 Freq: Status: Active Protocol: Document 02/06/22 16:49 AW (Rec: 02/06/22 16:57 AW [id number]) Lymphedema Treatment Manual Lymphatic Drainage Location LUE Duration 30 min Comments Focused on AIA and AAA pathways to stimulate lymphangiomotoricity. Lymphedema Wrapping Body Location LUE Materials Tricofix, artifex, and comprilan 6 cm, 8 cm, and 10 cm to axilla. No finger wraps per pt request. Added tubigrip size E as a second layer for hand and wrist. Also dispensed tubigrip size E full length for pt to use as a night time alternative. Patient Education Other Pt had no complication when wrapped MCP to axilla. Encouraged pt to continue self MLD, wrapping with bandages or tubigrip, and exercises. PT-OP-T Assessment and Plan Start: 12/31/21 14:12 Freq: Status: Active Protocol: Document 02/06/22 16:49 AW (Rec: 02/06/22 16:57 AW [id number]) Physical Therapy Assessment Goals Two Impairment functional use left arm Nursing Home Goal (LTG) Pt will regain functional use of his left arm for ADL and IADL management LTG Duration 03/26/22 One Impairment lymphedema LUE Short Term Goal (STG) Pt will be instructed in all aspects of lymphedema care including skin care, manual lymphatic drainage, lymphedema exercises, and compression garments. STG Duration 02/12/22 Home Health Attendant Goal (LTG) Pt will demonstrate reduction and stabilization of lymphedema (no change greater than 1 cm over the course of 1 week) and be independent with all aspects of lymphedema self-care including donning/ doffing compression garment or alternative. LTG Duration 03/26/22 Assessment Summary Assessment Short session today due to scheduling. Pt is able to tolerate tubigrip size G MCP to axilla. Dispensed tubigrip size E today for pt to trial. Physical Therapy Plan Frequency and Duration Frequency of Treatment 3x/Week Duration of treatment (weeks) 12 Plan of Care Start Date 01/01/22 Plan of Care End Date 03/26/22 Therapeutic Interventions Therapeutic Interventions Home Exercise Program, Lymphedema Management,Manual Therapy,Self-Care/Home Management,Soft Tissue Mobilization,Therapeutic Activities,Therapeutic Exercises Modalities Vasopneumatic Devices Next Visit Focus/Plan Next Note Type Treatment Note Next Visit Plan Measure and continue CDT with MLD, compression, and exercise . Continue education with pt and spouse.
--- NOTE | 2022-02-11 16:28 | PT.OTN ---
Current Diagnoses Mantle cell lymphoma, intrathoracic lymph nodes (02/11/22) Lymphedema, not elsewhere classified (02/11/22) Other reduced mobility (02/11/22) Other specified health status (02/11/22) Physical Therapy Treatment Note PT-OP-A Visit Information Start: 12/31/21 14:12 Freq: Status: Active Protocol: Document 02/11/22 15:21 AW (Rec: 02/11/22 16:28 AW [id number]) Out-Patient Physical Therapy Visit Information Visit Information Visit Type Treatment Note Visit Start Time 15:15 Visit Stop Time 16:20 Total Visit Minutes 65 Visit Number 7 Evaluation Information Evaluation Date 01/01/22 Precautions Precautions pacemaker PT-OP-B Current Condition Start: 12/31/21 14:12 Freq: Status: Active Protocol: Document 01/01/22 12:00 AW (Rec: 12/31/21 17:20 AW [id number]) Current Condition History of Current Condition Onset Date October Current Complaints left arm swelling, heaviness History of Current Condition Left arm swelling began 6-8 weeks ago and started out as a band just below the elbow. It has spread down to the hand and is now above the elbow. It hurts to extend wrist or bear weight on left hand. It is harder to lift left arm above shoulder level. 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 Treated with chemo via port-a-cath a few years ago. 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 He is right hand dominant and walks with a quad cane. Pt notes he had melanoma removed 30-40 years ago with likely lymph node dissection at that time. PMH also includes aortic valve replacement, pacemaker, and cardiac rehab in 2019. Jewel lives with his supportive spouse, Christine. Prior Treatments and Tests - MLD over the past month with local LMT. - PT for back pain before CVA. PT post-CVA focused on gait and balance. PT more recently for knee pain. Treatment Goals Patient/Caregiver Goals Reduce swelling to be able to use left arm more functionally . Personal Factors Other Personal Factors That May Effect BMI is ~40, CVA in 2018 with Therapy/Recovery left hemiparesis PT-OP-C Subjective Start: 12/31/21 14:12 Freq: Status: Active Protocol: Document 02/11/22 15:21 AW (Rec: 12/13/22 16:28 AW [id number]) OP-PT Subjective Patient Comments Patient Comments Thinks tubigrip E was too small. Swelling seems the same . PT-OP-F Manual Assessment Start: 12/31/21 14:12 Freq: Status: Active Protocol: Document 01/01/22 12:00 AW (Rec: 01/01/22 12:17 AW [id number]) Manual Assessments Other Manual Assessments Other Manual Assessments Mild fibrotic changes noted in forearm. PT-OP-G Mobility & Gait Start: 12/31/21 14:12 Freq: Status: Active Protocol: Document 01/01/22 12:00 AW (Rec: 01/01/22 12:17 AW [id number]) OP Mobility Evaluation Bed Mobility Supine to and from Sit min A on tx table Transfers Sit to Stand Definite use of hands Bed to Chair Transfers Uses quad cane SBA OP Gait Assessment Comments Gait Comments Pt ambulates with quad cane held in right hand. LE extensor tone increases with distance and pt drags toe ~50% of steps. PT-OP-M Strength Start: 12/31/21 14:12 Freq: Status: Active Protocol: Document 01/01/22 12:00 AW (Rec: 01/01/22 12:23 AW [id number]) Shoulder Strength Shoulder Manual Muscle Testing Left Comments Grossly 4-/5 to 4/5 with heaviness affecting strength PT-OP-N Lymphedema Start: 12/31/21 14:12 Freq: Status: Active Protocol: Document 02/11/22 15:21 AW (Rec: 02/11/22 16:28 AW [id number]) Lymphedema Measurements Upper Extremity Circumference Measurements Left Affected MCP 24.3 cm Dorsum of Hand 26.4 cm Wrist 25.1 cm 5 cm From Wrist Crease 28.4 cm 10 cm From Wrist Crease 30.7 cm 15 cm From Wrist Crease 36.5 cm 20 cm From Wrist Crease 41 cm 25 cm From Wrist Crease 42 cm 30 cm From Wrist Crease 41.1 cm 35 cm From Wrist Crease 43.7 cm 40 cm From Wrist Crease 45.5 cm - Distances from volar crease PT-OP-Q Treatments Start: 12/31/21 14:12 Freq: Status: Active Protocol: Document 02/11/22 15:21 AW (Rec: 02/11/22 16:28 AW [id number]) Cardio Equipment Upper Body Ergometer (UBE) Duration (Minutes) 8 RPM 80 Height 4 Other f/b Lymphedema Treatment Manual Lymphatic Drainage Location LUE Duration 30 min Comments Focused on AIA and AAA pathways to stimulate lymphangiomotoricity. Lymphedema Wrapping Body Location LUE Materials Tricofix, artifex, and comprilan 6 cm, 8 cm, and 10 cm to axilla. No finger wraps per pt request. Added tubigrip size E as a second layer for hand and wrist. Also dispensed tubigrip size F full length for pt to use as a night time alternative. (switched from E to F for improved comfort). Sequential Lymphedema Exercises Location UE Duration 5 min Comments Full sequence. Pt has some difficulty with LUE elevation due to hemiparesis but is able to complete 5 reps all exercises. Patient Education Other Encouraged pt to continue self MLD, wrapping with bandages or tubigrip, and exercises. PT-OP-T Assessment and Plan Start: 12/31/21 14:12 Freq: Status: Active Protocol: Document 02/11/22 15:21 AW (Rec: 02/11/22 16:28 AW [id number]) Physical Therapy Assessment Goals Two Impairment functional use left arm Senior Care Goal (LTG) Pt will regain functional use of his left arm for ADL and IADL management LTG Duration 03/26/22 One Impairment lymphedema LUE Short Term Goal (STG) Pt will be instructed in all aspects of lymphedema care including skin care, manual lymphatic drainage, lymphedema exercises, and compression garments. STG Duration 02/12/22 Senior Care Goal (LTG) Pt will demonstrate reduction and stabilization of lymphedema (no change greater than 1 cm over the course of 1 week) and be independent with all aspects of lymphedema self-care including donning/ doffing compression garment or alternative. LTG Duration 03/26/22 Assessment Summary Assessment No significant change in measurements today. Pt has struggled to keep consistent compression on his limb. He does potentially have assist from his and is encouraged to use all resources to wrap at home for optimal reduction. Pt may benefit from a compression alternative for ease of use. Physical Therapy Plan Frequency and Duration Frequency of Treatment 3x/Week Duration of treatment (weeks) 12 Plan of Care Start Date 01/01/22 Plan of Care End Date 03/26/22 Therapeutic Interventions Therapeutic Interventions Home Exercise Program, Lymphedema Management,Manual Therapy,Self-Care/Home Management,Soft Tissue Mobilization,Therapeutic Activities,Therapeutic Exercises Modalities Vasopneumatic Devices Next Visit Focus/Plan Next Note Type Treatment Note Next Visit Plan Measure and continue CDT with MLD, compression, and exercise . Continue education with pt and spouse.
--- NOTE | 2022-02-13 12:14 | PT.OTN ---
Current Diagnoses Mantle cell lymphoma, intrathoracic lymph nodes (02/13/22) Lymphedema, not elsewhere classified (02/13/22) Other reduced mobility (02/13/22) Other specified health status (02/13/22) Physical Therapy Treatment Note PT-OP-A Visit Information Start: 12/31/21 14:12 Freq: Status: Active Protocol: Document 02/13/22 11:23 AW (Rec: 02/13/22 12:14 AW [id number]) Out-Patient Physical Therapy Visit Information Visit Information Visit Type Treatment Note Visit Start Time : Visit Stop Time 12: Total Visit Minutes 40 Visit Number 8 Evaluation Information Evaluation Date 01/01/22 Precautions Precautions pacemaker PT-OP-B Current Condition Start: 12/31/21 14:12 Freq: Status: Active Protocol: Document 01/01/22 12:00 AW (Rec: 12/31/21 17:20 AW [id number]) Current Condition History of Current Condition Onset Date October Current Complaints left arm swelling, heaviness History of Current Condition Left arm swelling began 6-8 weeks ago and started out as a band just below the elbow. It has spread down to the hand and is now above the elbow. It hurts to extend wrist or bear weight on left hand. It is harder to lift left arm above shoulder level. 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 Treated with chemo via port-a-cath a few years ago. 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 He is right hand dominant and walks with a quad cane. Pt notes he had melanoma removed 30-40 years ago with likely lymph node dissection at that time. PMH also includes aortic valve replacement, pacemaker, and cardiac rehab in 2019. Jewel lives with his supportive spouse, Christine. Prior Treatments and Tests - MLD over the past month with local LMT. - PT for back pain before CVA. PT post-CVA focused on gait and balance. PT more recently for knee pain. Treatment Goals Patient/Caregiver Goals Reduce swelling to be able to use left arm more functionally . Personal Factors Other Personal Factors That May Effect BMI is ~40, CVA in 2018 with Therapy/Recovery left hemiparesis PT-OP-C Subjective Start: 12/31/21 14:12 Freq: Status: Active Protocol: Document 02/13/22 11:23 AW (Rec: 12/15/22 12:14 AW [id number]) OP-PT Subjective Patient Comments Patient Comments Tried Tubigrip F after removing wraps yesterday but thinks it was too small. Had tourniquet effect which resolved in ~4 hours. PT-OP-F Manual Assessment Start: 12/31/21 14:12 Freq: Status: Active Protocol: Document 01/01/22 12:00 AW (Rec: 01/01/22 12:17 AW [id number]) Manual Assessments Other Manual Assessments Other Manual Assessments Mild fibrotic changes noted in forearm. PT-OP-G Mobility & Gait Start: 12/31/21 14:12 Freq: Status: Active Protocol: Document 01/01/22 12:00 AW (Rec: 01/01/22 12:17 AW [id number]) OP Mobility Evaluation Bed Mobility Supine to and from Sit min A on tx table Transfers Sit to Stand Definite use of hands Bed to Chair Transfers Uses quad cane SBA OP Gait Assessment Comments Gait Comments Pt ambulates with quad cane held in right hand. LE extensor tone increases with distance and pt drags toe ~50% of steps. PT-OP-M Strength Start: 12/31/21 14:12 Freq: Status: Active Protocol: Document 01/01/22 12:00 AW (Rec: 01/01/22 12:23 AW [id number]) Shoulder Strength Shoulder Manual Muscle Testing Left Comments Grossly 4-/5 to 4/5 with heaviness affecting strength PT-OP-N Lymphedema Start: 12/31/21 14:12 Freq: Status: Active Protocol: Document 02/13/22 11:23 AW (Rec: 02/13/22 12:14 AW [id number]) Lymphedema Measurements Upper Extremity Circumference Measurements Left Affected MCP 24.2 cm Dorsum of Hand 26.5 cm Wrist 24.8 cm 10 cm From Wrist Crease 30.3 cm 20 cm From Wrist Crease 40.7 cm 30 cm From Wrist Crease 41.5 cm 40 cm From Wrist Crease 45.1 cm Elbow Joint 41 cm - Distances from volar crease PT-OP-Q Treatments Start: 12/31/21 14:12 Freq: Status: Active Protocol: Document 02/13/22 11:23 AW (Rec: 02/13/22 12:14 AW [id number]) Lymphedema Treatment Manual Lymphatic Drainage Location LUE Comments Prepped AIA and AAA pathways before pump and continued intermittent pathway clearance during pump treatment Lymphedema Wrapping Body Location LUE Materials Tricofix, artifex, channel foam on dorsal hand, and comprilan 6 cm, 8 cm, and 10 cm to axilla. No finger wraps per pt request. Patient Education Other Encouraged pt to continue self MLD, wrapping with bandages or tubigrip, and exercises. PT-OP-R Modalities Start: 12/31/21 14:12 Freq: Status: Active Protocol: Document 02/13/22 11:23 AW (Rec: 02/13/22 12:14 AW [id number]) Compression Pump Treatment Treatment Location Left Arm Pressure Amount (mmHg) (mmHG) 50 Inflation Time (Seconds) 30 Deflation Time (Seconds) 10 Treatment Duration (minutes) 20 Treatment Tolerance Good PT-OP-T Assessment and Plan Start: 12/31/21 14:12 Freq: Status: Active Protocol: Document 02/13/22 11:23 AW (Rec: 02/13/22 12:14 AW [id number]) Physical Therapy Assessment Goals Two Impairment functional use left arm Group Home Goal (LTG) Pt will regain functional use of his left arm for ADL and IADL management LTG Duration 03/26/22 One Impairment lymphedema LUE Short Term Goal (STG) Pt will be instructed in all aspects of lymphedema care including skin care, manual lymphatic drainage, lymphedema exercises, and compression garments. STG Duration 02/12/22 Commercial Driver'S License Driver Goal (LTG) Pt will demonstrate reduction and stabilization of lymphedema (no change greater than 1 cm over the course of 1 week) and be independent with all aspects of lymphedema self-care including donning/ doffing compression garment or alternative. LTG Duration 03/26/22 Assessment Summary Assessment Pt has good tolerance for pneumatic pump and did show slight reduction at hand and wrist post-treatment even though pump session was short. He reports and has photos of good reduction at hand and wrist when he takes off his bandages at home but has been inconsistent wtih re-wrapping at home. Physical Therapy Plan Frequency and Duration Frequency of Treatment 3x/Week Duration of treatment (weeks) 12 Plan of Care Start Date 01/01/22 Plan of Care End Date 03/26/22 Therapeutic Interventions Therapeutic Interventions Home Exercise Program, Lymphedema Management,Manual Therapy,Self-Care/Home Management,Soft Tissue Mobilization,Therapeutic Activities,Therapeutic Exercises Modalities Vasopneumatic Devices Next Visit Focus/Plan Next Note Type Treatment Note Next Visit Plan Measure and continue CDT with MLD, compression, and exercise . Continue education with pt and spouse.
--- NOTE | 2022-02-18 14:49 | PT.OTN ---
Current Diagnoses Mantle cell lymphoma, intrathoracic lymph nodes (02/18/22) Lymphedema, not elsewhere classified (02/18/22) Other reduced mobility (02/18/22) Other specified health status (02/18/22) Physical Therapy Treatment Note PT-OP-A Visit Information Start: 12/31/21 14:12 Freq: Status: Active Protocol: Document 02/18/22 13:22 AW (Rec: 02/18/22 14:49 AW [id number]) Out-Patient Physical Therapy Visit Information Visit Information Visit Type Treatment Note Visit Start Time 13:30 Visit Stop Time 14:39 Total Visit Minutes 69 Visit Number 9 Evaluation Information Evaluation Date 01/01/22 Precautions Precautions pacemaker PT-OP-B Current Condition Start: 12/31/21 14:12 Freq: Status: Active Protocol: Document 01/01/22 12:00 AW (Rec: 12/31/21 17:20 AW [id number]) Current Condition History of Current Condition Onset Date October Current Complaints left arm swelling, heaviness History of Current Condition Left arm swelling began 6-8 weeks ago and started out as a band just below the elbow. It has spread down to the hand and is now above the elbow. It hurts to extend wrist or bear weight on left hand. It is harder to lift left arm above shoulder level. 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 Treated with chemo via port-a-cath a few years ago. 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 He is right hand dominant and walks with a quad cane. Pt notes he had melanoma removed 30-40 years ago with likely lymph node dissection at that time. PMH also includes aortic valve replacement, pacemaker, and cardiac rehab in 2019. Jewel lives with his supportive spouse, Christine. Prior Treatments and Tests - MLD over the past month with local LMT. - PT for back pain before CVA. PT post-CVA focused on gait and balance. PT more recently for knee pain. Treatment Goals Patient/Caregiver Goals Reduce swelling to be able to use left arm more functionally . Personal Factors Other Personal Factors That May Effect BMI is ~40, CVA in 2018 with Therapy/Recovery left hemiparesis PT-OP-C Subjective Start: 12/31/21 14:12 Freq: Status: Active Protocol: Document 02/18/22 13:22 AW (Rec: 12/20/22 14:49 AW [id number]) OP-PT Subjective Patient Comments Patient Comments No significant change in swelling. Pt has not been using bandages between appointments. PT-OP-F Manual Assessment Start: 12/31/21 14:12 Freq: Status: Active Protocol: Document 01/01/22 12:00 AW (Rec: 01/01/22 12:17 AW [id number]) Manual Assessments Other Manual Assessments Other Manual Assessments Mild fibrotic changes noted in forearm. PT-OP-G Mobility & Gait Start: 12/31/21 14:12 Freq: Status: Active Protocol: Document 01/01/22 12:00 AW (Rec: 01/01/22 12:17 AW [id number]) OP Mobility Evaluation Bed Mobility Supine to and from Sit min A on tx table Transfers Sit to Stand Definite use of hands Bed to Chair Transfers Uses quad cane SBA OP Gait Assessment Comments Gait Comments Pt ambulates with quad cane held in right hand. LE extensor tone increases with distance and pt drags toe ~50% of steps. PT-OP-M Strength Start: 12/31/21 14:12 Freq: Status: Active Protocol: Document 01/01/22 12:00 AW (Rec: 01/01/22 12:23 AW [id number]) Shoulder Strength Shoulder Manual Muscle Testing Left Comments Grossly 4-/5 to 4/5 with heaviness affecting strength PT-OP-N Lymphedema Start: 12/31/21 14:12 Freq: Status: Active Protocol: Document 02/18/22 13:22 AW (Rec: 02/18/22 14:49 AW [id number]) Lymphedema Measurements Upper Extremity Circumference Measurements Left Affected MCP 24 cm Dorsum of Hand 25.5 cm Wrist 25.1 cm 5 cm From Wrist Crease 28.1 cm 10 cm From Wrist Crease 30 cm 15 cm From Wrist Crease 37 cm 20 cm From Wrist Crease 40.8 cm 25 cm From Wrist Crease 42 cm 30 cm From Wrist Crease 42 cm 35 cm From Wrist Crease 43.2 cm 40 cm From Wrist Crease 44.5 cm Elbow Joint 41.5 cm - Distances from volar crease PT-OP-Q Treatments Start: 12/31/21 14:12 Freq: Status: Active Protocol: Document 02/18/22 13:22 AW (Rec: 02/18/22 14:49 AW [id number]) Lymphedema Treatment Manual Lymphatic Drainage Location LUE Comments Prepped AIA and AAA pathways before pump and continued intermittent pathway clearance during pump treatment Lymphedema Wrapping Body Location LUE Materials Tricofix, artifex, channel foam on dorsal hand, and comprilan 6 cm, 8 cm, and 10 cm to axilla. No finger wraps per pt request. Sequential Lymphedema Exercises Comments Discussed continuing at home Compression Garment Assessment Compression Garment Assessment Details Trialed use of fingerless gauntlet. Pt borrowing the gauntlet to use under full length tubigrip Patient Education Other Encouraged pt to continue self MLD, wrapping with bandages or tubigrip/gauntlet, and exercises. PT-OP-R Modalities Start: 12/31/21 14:12 Freq: Status: Active Protocol: Document 02/18/22 13:22 AW (Rec: 02/18/22 14:49 AW [id number]) Compression Pump Treatment Treatment Location Left Arm Pressure Amount (mmHg) (mmHG) 50 Inflation Time (Seconds) 30 Deflation Time (Seconds) 10 Treatment Duration (minutes) 25 Treatment Tolerance Good Treatment Comments With black foam at dorsal hand /wrist. Slight reduction (0.5 cm) at dorsum and wrist post- pump. PT-OP-T Assessment and Plan Start: 12/31/21 14:12 Freq: Status: Active Protocol: Document 02/18/22 13:22 AW (Rec: 02/18/22 14:49 AW [id number]) Physical Therapy Assessment Goals Two Impairment functional use left arm Scalping Machine Operator Goal (LTG) Pt will regain functional use of his left arm for ADL and IADL management LTG Duration 03/26/22 One Impairment lymphedema LUE Short Term Goal (STG) Pt will be instructed in all aspects of lymphedema care including skin care, manual lymphatic drainage, lymphedema exercises, and compression garments. STG Duration 02/12/22 Intermediate Goal (LTG) Pt will demonstrate reduction and stabilization of lymphedema (no change greater than 1 cm over the course of 1 week) and be independent with all aspects of lymphedema self-care including donning/ doffing compression garment or alternative. LTG Duration 03/26/22 Assessment Summary Assessment Continued use of pneumatic pump today and pt had 0.5 cm reduction post-pump at hand and wrist. Trialed use of fingerless gauntlet today and encouraged pt to use it at home underneath full length tubigrip to increase compression distally. Physical Therapy Plan Frequency and Duration Frequency of Treatment 3x/Week Duration of treatment (weeks) 12 Plan of Care Start Date 01/01/22 Plan of Care End Date 03/26/22 Therapeutic Interventions Therapeutic Interventions Home Exercise Program, Lymphedema Management,Manual Therapy,Self-Care/Home Management,Soft Tissue Mobilization,Therapeutic Activities,Therapeutic Exercises Modalities Vasopneumatic Devices Next Visit Focus/Plan Next Note Type Progress Note Next Visit Plan RETURN GAUNTLET Assess response to gauntlet. Measure and continue CDT with MLD, compression, and exercise . Continue education with pt and spouse.
--- NOTE | 2022-03-04 16:40 | PT.OTN ---
Current Diagnoses Mantle cell lymphoma, intrathoracic lymph nodes (03/04/22) Lymphedema, not elsewhere classified (03/04/22) Other reduced mobility (03/04/22) Other specified health status (03/04/22) Physical Therapy Treatment Note PT-OP-A Visit Information Start: 12/31/21 14:12 Freq: Status: Active Protocol: Document 03/04/22 15:52 AW (Rec: 03/04/22 16:38 AW [id number]) Out-Patient Physical Therapy Visit Information Visit Information Visit Type Treatment Note Visit Start Time 15:15 Visit Stop Time 16:25 Total Visit Minutes 70 Visit Number 10 Evaluation Information Evaluation Date 01/01/22 Precautions Precautions pacemaker PT-OP-B Current Condition Start: 12/31/21 14:12 Freq: Status: Active Protocol: Document 01/01/22 12:00 AW (Rec: 12/31/21 17:20 AW [id number]) Current Condition History of Current Condition Onset Date October Current Complaints left arm swelling, heaviness History of Current Condition Left arm swelling began 6-8 weeks ago and started out as a band just below the elbow. It has spread down to the hand and is now above the elbow. It hurts to extend wrist or bear weight on left hand. It is harder to lift left arm above shoulder level. 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 Treated with chemo via port-a-cath a few years ago. 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 He is right hand dominant and walks with a quad cane. Pt notes he had melanoma removed 30-40 years ago with likely lymph node dissection at that time. PMH also includes aortic valve replacement, pacemaker, and cardiac rehab in 2019. Jewel lives with his supportive spouse, Christine. Prior Treatments and Tests - MLD over the past month with local LMT. - PT for back pain before CVA. PT post-CVA focused on gait and balance. PT more recently for knee pain. Treatment Goals Patient/Caregiver Goals Reduce swelling to be able to use left arm more functionally . Personal Factors Other Personal Factors That May Effect BMI is ~40, CVA in 2018 with Therapy/Recovery left hemiparesis PT-OP-C Subjective Start: 12/31/21 14:12 Freq: Status: Active Protocol: Document 03/04/22 15:52 AW (Rec: 03/04/22 16:38 AW [id number]) OP-PT Subjective Patient Comments Patient Comments Pt wore the gauntlet a few times per week along with tubigrip up the arm. He had significant reduction in the hand but also strong tourniquet affect just proximal to the glove. He found it uncomfortable. PT-OP-F Manual Assessment Start: 12/31/21 14:12 Freq: Status: Active Protocol: Document 01/01/22 12:00 AW (Rec: 01/01/22 12:17 AW [id number]) Manual Assessments Other Manual Assessments Other Manual Assessments Mild fibrotic changes noted in forearm. PT-OP-G Mobility & Gait Start: 12/31/21 14:12 Freq: Status: Active Protocol: Document 01/01/22 12:00 AW (Rec: 01/01/22 12:17 AW [id number]) OP Mobility Evaluation Bed Mobility Supine to and from Sit min A on tx table Transfers Sit to Stand Definite use of hands Bed to Chair Transfers Uses quad cane SBA OP Gait Assessment Comments Gait Comments Pt ambulates with quad cane held in right hand. LE extensor tone increases with distance and pt drags toe ~50% of steps. PT-OP-M Strength Start: 12/31/21 14:12 Freq: Status: Active Protocol: Document 01/01/22 12:00 AW (Rec: 01/01/22 12:23 AW [id number]) Shoulder Strength Shoulder Manual Muscle Testing Left Comments Grossly 4-/5 to 4/5 with heaviness affecting strength PT-OP-N Lymphedema Start: 12/31/21 14:12 Freq: Status: Active Protocol: Document 03/04/22 15:52 AW (Rec: 03/04/22 16:38 AW [id number]) Lymphedema Measurements Upper Extremity Circumference Measurements Left Affected MCP 24.2 cm Dorsum of Hand 27.2 cm Wrist 25.8 cm 5 cm From Wrist Crease 28.4 cm 10 cm From Wrist Crease 30.8 cm 15 cm From Wrist Crease 38 cm 20 cm From Wrist Crease 41.1 cm 25 cm From Wrist Crease 42 cm 30 cm From Wrist Crease 42 cm 35 cm From Wrist Crease 43.7 cm 40 cm From Wrist Crease 45.3 cm - Distances from volar crease PT-OP-Q Treatments Start: 12/31/21 14:12 Freq: Status: Active Protocol: Document 03/04/22 15:52 AW (Rec: 03/04/22 16:38 AW [id number]) Lymphedema Treatment Manual Lymphatic Drainage Location LUE Comments Prepped AIA and AAA pathways before pump and continued intermittent pathway clearance during pump treatment Lymphedema Wrapping Body Location LUE Materials Tubigrip only today - MCP to axilla. Pt states he is not tolerating bandaging well. Sequential Lymphedema Exercises Comments Discussed continuing at home Patient Education Other Encouraged pt to continue self MLD, wrapping with bandages or tubigrip, and exercises. PT-OP-R Modalities Start: 12/31/21 14:12 Freq: Status: Active Protocol: Document 03/04/22 15:52 AW (Rec: 03/04/22 16:38 AW [id number]) Compression Pump Treatment Treatment Location Left Arm Pressure Amount (mmHg) (mmHG) 50 Inflation Time (Seconds) 30 Deflation Time (Seconds) 10 Treatment Duration (minutes) 25 Treatment Tolerance Good Treatment Comments With black foam at dorsal hand /wrist. Slight reduction (0.5 cm) at dorsum and wrist post- pump. PT-OP-T Assessment and Plan Start: 12/31/21 14:12 Freq: Status: Active Protocol: Document 03/04/22 15:52 AW (Rec: 03/04/22 16:38 AW [id number]) Physical Therapy Assessment Goals Two Impairment functional use left arm [employer] Goal (LTG) Pt will regain functional use of his left arm for ADL and IADL management 03/04/22 - Pt states he is able to use his arm as before even though swelling has not reduced LTG Duration 03/26/22 One Impairment lymphedema LUE Short Term Goal (STG) Pt will be instructed in all aspects of lymphedema care including skin care, manual lymphatic drainage, lymphedema exercises, and compression garments. 03/04/22 - Pt engages sporadicaaly wtih self MLD and compression at home STG Duration 02/12/22 Halfway Goal (LTG) Pt will demonstrate reduction and stabilization of lymphedema (no change greater than 1 cm over the course of 1 week) and be independent with all aspects of lymphedema self-care including donning/ doffing compression garment or alternative. 03/04/22 - No significant reduction noted LTG Duration 03/26/22 Progress Towards Goals Progress Towards Goals Slow Progress - Other Progress Comments Jewel has made minimal progress in terms of circumferential measurements. He has found it very challenging to prioritize self-MLD and compression at home. He would benefit most from consistent compression of the entire left arm from MCP to axilla such as could be afforded by a circular knit garment. Assessment Summary Assessment Pt had good reduction distally while using gauntlet but he has no option for same level of compression up the arm. He found the tourniquet effect around the gauntlet uncomfortable and overall feels he would not use it any longer. PT strongly feels pt would benefit from a circular knit garment for daily wear. He may need to be measured for same. Will follow up with referring physician to initiate referral. Physical Therapy Plan Frequency and Duration Frequency of Treatment 3x/Week Duration of treatment (weeks) 12 Plan of Care Start Date 01/01/22 Plan of Care End Date 03/26/22 Therapeutic Interventions Therapeutic Interventions Home Exercise Program, Lymphedema Management,Manual Therapy,Self-Care/Home Management,Soft Tissue Mobilization,Therapeutic Activities,Therapeutic Exercises Modalities Vasopneumatic Devices Next Visit Focus/Plan Next Note Type Treatment Note Next Visit Plan Follow up on referral to [facility] Measure and continue CDT with MLD, compression, and exercise. Continue education with pt and spouse.
--- NOTE | 2022-03-05 12:08 | PT-OP ANOTE ---
Called referral to [facility] and asked referring MD to write prescription for LUE compression garment MCP to axilla 20-30 mm Hg (ok to substitute if not tolerated). Left VM for pt explaining he should expect a call from [facility] to schedule measurement appointment.
--- NOTE | 2022-07-14 14:32 | PT.OPDS ---
Current Diagnoses Mantle cell lymphoma, intrathoracic lymph nodes (03/04/22) Lymphedema, not elsewhere classified (03/04/22) Other reduced mobility (03/04/22) Other specified health status (03/04/22) Visit Care Team Role Provider Type Neal Gonzales MD Primary Care Provider Physician Specialty: Internal Medicine Pediatrics Address: [address] [place] [address], [id number] Phone: Fax: Email: [email or web address] Jonatan Blue MD Attending Provider Non-Staff Referring Provider Specialty: Internal Medicine Address: [address] [place] [address], [phone] Email: Visit Number Visit Number 10 Discharge Summary PT-OP-B Current Condition Start: 12/31/21 14:12 Freq: Status: Active Protocol: Document 01/01/22 12:00 AW (Rec: 12/31/21 17:20 AW [id number]) Current Condition History of Current Condition Onset Date October Current Complaints left arm swelling, heaviness History of Current Condition Left arm swelling began 6-8 weeks ago and started out as a band just below the elbow. It has spread down to the hand and is now above the elbow. It hurts to extend wrist or bear weight on left hand. It is harder to lift left arm above shoulder level. 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 Treated with chemo via port-a-cath a few years ago. 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 He is right hand dominant and walks with a quad cane. Pt notes he had melanoma removed 30-40 years ago with likely lymph node dissection at that time. PMH also includes aortic valve replacement, pacemaker, and cardiac rehab in 2019. Jewel lives with his supportive spouse, Christine. Prior Treatments and Tests - MLD over the past month with local LMT. - PT for back pain before CVA. PT post-CVA focused on gait and balance. PT more recently for knee pain. Treatment Goals Patient/Caregiver Goals Reduce swelling to be able to use left arm more functionally . Personal Factors Other Personal Factors That May Effect BMI is ~40, CVA in 2018 with Therapy/Recovery left hemiparesis PT-OP-C Subjective Start: 12/31/21 14:12 Freq: Status: Active Protocol: Document 03/04/22 15:52 AW (Rec: 03/04/22 16:38 AW [id number]) OP-PT Subjective Patient Comments Patient Comments Pt wore the gauntlet a few times per week along with tubigrip up the arm. He had significant reduction in the hand but also strong tourniquet affect just proximal to the glove. He found it uncomfortable. PT-OP-F Manual Assessment Start: 12/31/21 14:12 Freq: Status: Active Protocol: Document 01/01/22 12:00 AW (Rec: 01/01/22 12:17 AW [id number]) Manual Assessments Other Manual Assessments Other Manual Assessments Mild fibrotic changes noted in forearm. PT-OP-G Mobility & Gait Start: 12/31/21 14:12 Freq: Status: Active Protocol: Document 01/01/22 12:00 AW (Rec: 01/01/22 12:17 AW [id number]) OP Mobility Evaluation Bed Mobility Supine to and from Sit min A on tx table Transfers Sit to Stand Definite use of hands Bed to Chair Transfers Uses quad cane SBA OP Gait Assessment Comments Gait Comments Pt ambulates with quad cane held in right hand. LE extensor tone increases with distance and pt drags toe ~50% of steps. PT-OP-M Strength Start: 12/31/21 14:12 Freq: Status: Active Protocol: Document 01/01/22 12:00 AW (Rec: 01/01/22 12:23 AW [id number]) Shoulder Strength Shoulder Manual Muscle Testing Left Comments Grossly 4-/5 to 4/5 with heaviness affecting strength PT-OP-N Lymphedema Start: 12/31/21 14:12 Freq: Status: Active Protocol: Document 03/04/22 15:52 AW (Rec: 03/04/22 16:38 AW [id number]) Lymphedema Measurements Upper Extremity Circumference Measurements Left Affected MCP 24.2 cm Dorsum of Hand 27.2 cm Wrist 25.8 cm 5 cm From Wrist Crease 28.4 cm 10 cm From Wrist Crease 30.8 cm 15 cm From Wrist Crease 38 cm 20 cm From Wrist Crease 41.1 cm 25 cm From Wrist Crease 42 cm 30 cm From Wrist Crease 42 cm 35 cm From Wrist Crease 43.7 cm 40 cm From Wrist Crease 45.3 cm - Distances from volar crease PT-OP-T Assessment and Plan Start: 12/31/21 14:12 Freq: Status: Active Protocol: Document 07/14/22 14:32 [facility] (Rec: 07/14/22 14:32 [facility] [id number]) Physical Therapy Assessment Assessment Summary Assessment Patient not seen for PT since 03/04/22. To be discharged from PT Physical Therapy Plan Discharge Physical Therapy Discharge Reasons No Longer Attending PT
== END 2022-09-09 07:24 ==
LOC: PHYS 15:15
PROVIDERS: PCP Pediatrics; Referring Provider Internal Medicine; Visit Provider Internal Medicine
DX: C83.12 Mantle cell lymphoma, intrathoracic lymph nodes (principal); Z74.09 Other reduced mobility; Z78.9 Other specified health status; I89.0 Lymphedema, not elsewhere classified
CPT/HCPCS: 97016; 97110; 97140; 97162; 97530; 97535

== ENCOUNTER 2022-11-10 12:30 | Outpatient (RCR) | payer OTHER, SELFPAY ==
--- NOTE | 2022-09-08 16:38 | PT.OIE ---
Current Diagnoses Lymphedema, not elsewhere classified (09/08/22) Other malaise (09/08/22) Past Medical History (Last Updated 09/13/21 @ 09:09 by Nathan Ga MD) Atrial fibrillation Chicken pox Chronic back pain Complete heart block CVA (cerebral vascular accident) (~11/2017) Kidney stones (~1975) Mantle cell lymphoma (~10/2017) Measles Melanoma (~1979) Mild aortic stenosis by prior echocardiogram (08/13/11) Mumps Obesity Onychomycosis Osteopenia of femoral neck, bilateral (~12/2018) Pacemaker (~04/2018) Skin cancer (~2004) Squamous cell carcinoma (08/2019) TIA (transient ischemic attack) (~2009) Tinea pedis Wears glasses Past Surgical History (Last Reviewed 05/30/21 @ 17:18 by Kasey Tineo MD) Anesthesia History of tonsillectomy S/P bronchoscopy with biopsy S/P TAVR (transcatheter aortic valve replacement) (~04/2018) Status post cardiac pacemaker procedure (~05/14/18) Visit Care Team Role Provider Type Danielle Kennedy DO Attending Provider Physician Family Provider Primary Care Provider Referring Provider Specialty: Medical Address: [address] [place] [address], [address], [place], [facility] Email: [email or web address] Physical Therapy Initial Evaluation PT-OP-A Visit Information Start: 09/07/22 12:05 Freq: Status: Active Protocol: Document 09/08/22 12:30 SAK (Rec: 09/08/22 14:22 [facility] [id number]) Out-Patient Physical Therapy Visit Information Visit Information Visit Type Initial Evaluation Visit Start Time 12:30 Visit Stop Time 13:45 Total Visit Minutes 75 Visit Number 1 Evaluation Information Evaluation Date 09/08/22 Precautions Precautions cardiac history, history CVA with left sided weakness, lymphoma (chronic chemo) PT-OP-B Current Condition Start: 09/07/22 12:05 Freq: Status: Active Protocol: Document 09/08/22 12:30 SAK (Rec: 09/08/22 14:22 SAK [id number]) Current Condition History of Current Condition Onset Date few months Current Complaints left arm lymphedema History of Current Condition Lymphedema started 9 months ago, unknown reason. CVA with left hemiparesis 2018. Undergoing chronic treatment for lymphoma. Has pacemaker. Worsening ofwelling left UE started several months ago, saw massage therapist, no bandaging. Saw Gifty Ellison PT at this clinic, was sent to get compression sleeve and gauntlet at [facility]. States if he wears gauntlet with sleeve gets indentation at wrist. Currently 5 out of 7 days wears sleeve only, not gauntlet. Treatment Goals Patient/Caregiver Goals Decrease left UE edema and obtain appropriate compression garment. Prior Functional Status Baseline Function- ADL's Modified Independent Baseline Function- Mobility Modified Independent Baseline Function- Work/School retired Current Functional Impairments (Reported) Functional Limitations- ADL's decreased ability to use left UE Functional Limitations- Recreation/ watching TV Hobbies Functional Limitations- Other lymphedema life impact scale 31% Personal Factors Other Personal Factors That May Effect sedentary lifestyle Therapy/Recovery PT-OP-C Subjective Start: 09/07/22 12:05 Freq: Status: Active Protocol: Document 09/08/22 12:30 [facility] (Rec: 09/08/22 14:22 [facility] [id number]) Patient Questionnaires Lymphedema Life Impact Score Lymphedema Score 31 OP-PT Pain Assessment Pain Assessment Grid Paper Pain Assessment Grid Completed Yes Location left UE Intensity 1 PT-OP-F Manual Assessment Start: 09/07/22 12:05 Freq: Status: Active Protocol: Document 09/08/22 12:30 [facility] (Rec: 09/08/22 14:22 [facility] [id number]) Manual Assessments Soft Tissue Assessment Soft Tissue Mobility Assessment fibrosis with mottled coloring left forearm PT-OP-G Mobility & Gait Start: 09/07/22 12:05 Freq: Status: Active Protocol: Document 09/08/22 12:30 [facility] (Rec: 09/08/22 14:22 [facility] [id number]) OP Mobility Evaluation Functional Movements Lifting and Carrying decreased ability PT-OP-H Neuro Start: 09/07/22 12:05 Freq: Status: Active Protocol: Document 09/08/22 12:30 [facility] (Rec: 09/08/22 14:22 [facility] [id number]) Sensation Evaluation Gross Sensation Gross Sensation Left UE Impaired PT-OP-J Posture/Palpation/Skin Start: 09/07/22 12:05 Freq: Status: Active Protocol: Document 09/08/22 12:30 [facility] (Rec: 09/08/22 14:22 [facility] [id number]) Palpation Assessment Location left UE Palpation Findings Edema,Soft Tissue Tightness Palpation Details fibrosis Skin Assessment Edema Assessment left UE Edema Degree 4+ Edema Appearance Discolored,Firm,Taut Subjective Edema Description Tightness Comments fibrosis left forearm PT-OP-K Range of Motion Start: 09/07/22 12:05 Freq: Status: Active Protocol: Document 09/08/22 12:30 [facility] (Rec: 09/08/22 14:22 [facility] [id number]) Shoulder Goniometric Range of Motion Shoulder Left Active Shoulder ROM WFL No Flexion 105 Extension 10 Abduction 100 Horizontal Abduction 75 Horizontal Adduction 35 External Rotation at 0 degrees Abduction 45 Internal Rotation Behind Back (text) L4 Right Active Shoulder ROM WFL Yes Shoulder ROM Limitations Shoulder ROM Limitations Soft Tissue Tightness,Muscle Weakness,Swelling Elbow/Forearm Range of Motion Elbow/Forearm Left Active Elbow/Forearm ROM WFL No Elbow Flexion (degrees) 125 Elbow Extension (degrees) 10 Pronation (degrees) 80 Supination (degrees) 35 Right Active Elbow/Forearm ROM WFL Yes Elbow/Forearm ROM Limitations Elbow/Forearm ROM Limitations Soft Tissue Tightness,Muscle Weakness,Swelling Wrist Goniometric Range of Motion Wrist Left Flexion Active (degrees) 5 Flexion Passive (degrees) 10 Extension Active (degrees) 5 Extension Passive (degrees) 10 Right Wrist ROM WFL Yes Finger Goniometric Range of Motion Finger left Finger ROM WFL No right Finger ROM WFL Yes Finger ROM Limitations Finger ROM Limitations Swelling Comments unable to achieve full first dyer due to swelling PT-OP-N Lymphedema Start: 09/07/22 12:05 Freq: Status: Active Protocol: Document 09/08/22 12:30 [facility] (Rec: 09/08/22 14:22 [facility] [id number]) Lymphedema Measurements Upper Extremity Circumference Measurements Left Affected MCP 26.3 cm Dorsum of Hand 29.2 cm Wrist 27.8 cm 5 cm From Wrist Crease 31.1 cm 10 cm From Wrist Crease 33.3 cm 15 cm From Wrist Crease 37.4 cm 20 cm From Wrist Crease 44 cm 25 cm From Wrist Crease 45.7 cm 30 cm From Wrist Crease 46.8 cm 35 cm From Wrist Crease 47.8 cm 40 cm From Wrist Crease 48.9 cm 45 cm From Wrist Crease 48.8 cm Elbow Joint 46.8 cm Right Unaffected MCP 24 cm Dorsum of Hand 25.6 cm Wrist 24.2 cm 5 cm From Wrist Crease 25.8 cm 10 cm From Wrist Crease 28.8 cm 15 cm From Wrist Crease 33.7 cm 20 cm From Wrist Crease 35.3 cm 25 cm From Wrist Crease 36.3 cm 30 cm From Wrist Crease 37 cm 35 cm From Wrist Crease 37.3 cm 40 cm From Wrist Crease 40 cm 45 cm From Wrist Crease 42.8 cm Elbow Joint 37 cm PT-OP-Q Treatments Start: 09/07/22 12:05 Freq: Status: Active Protocol: Document 09/08/22 12:30 [facility] (Rec: 09/08/22 14:22 [facility] [id number]) Therapeutic Exercises Sitting Exercises open/close hand Side left Reps/Minutes 10x wrist flex/ext Side left Reps/Minutes 10x forearm pron/sup Side left Reps/Minutes 10x elbow flex/ext Side left Reps/Minutes 10x trunk rotation Side bilateral Reps/Minutes 5x shoulder rolls Side bilateral Reps/Minutes 10x Self-Care/Home Management Treatment Education Other Education see lymphedema section Lymphedema Treatment Manual Lymphatic Drainage Location left UE Comments review, referred to [facility] for review of self-massage, will review next session Lymphedema Wrapping Body Location left UE Materials Tricofix size F, Artiflex (3 rolls), Comprilan 6,8,10x2 Sequential Lymphedema Exercises Duration 8 Comments done per ex section of chart Compression Garment Assessment Compression Garment Assessment Details doesn't have adequate compression with current gauntlet ending in wrist crease causing increased edema distally and just proximally. Sleeve doesn't appear to be applying adequate pressure, though also patient not fully compliant with wearing. Discussed need for different gauntlet for sure, potentially sleeve, and may need custom garment. Patient Education Compression Garments discussed Sequential Lymphedema Exercises done zs above PT-OP-T Assessment and Plan Start: 09/07/22 12:05 Freq: Status: Active Protocol: Document 09/08/22 12:30 [facility] (Rec: 09/08/22 14:22 [facility] [id number]) Physical Therapy Assessment Rehab Potential Rehabilitation Potential Good Evaluation Complexity Number of Personal Factors/Comorbidities 1-2 Number of Body Systems Impaired 3 Clinical Presentation at Evaluation Evolving Impairments Impairments Edema,Integument,ROM Goals Three Impairment decreased left UE ROM Impairment left shoulder elevation limited to 110 degrees Short Term Goal (STG) Patient to be independent with progressive HEP for right shoulder ROM STG Duration 10/09/22 Nursing Home Goal (LTG) Patient able to lift arm overhead to at least 150 degrees to allow him to regain full functional use of his right UE and improve soft tissue mobility for lymphatic flow LTG Duration 12/09/22 Two Impairment lymphedema life impact scale 31% Accounts Officer Goal (LTG) decrease lymphedema life impact scale score by at least 50% as measure of improved self-management and function LTG Duration 12/09/22 One Impairment lymphedema left UE Short Term Goal (STG) Patient to be instructed in all aspects of lymphedema care to include skin care, MLD, compression, and lymphedema ex . Decrease lymphedema to stable level (no increase or decrease greater 1 cm over the course of 1 week) STG Duration 10/09/22 Accounts Officer Goal (LTG) Patient to be independent with all aspects of lymphedema care with assistance of his , and obtain appropriate compression garments for lymphedema management when maximal circumferential measurements achieved. LTG Duration 12/09/22 Assessment Summary Assessment Patient presents to PT with exacerbation of his left UE lymphedema with poorly fitting gauntlet and inadequate compression in sleeve. He has stopped wearing the gauntlet due to where it applies excess pressure above wrist which appears to push fluid into hand and also increase edema immediately proximal where sleeve and gauntlet overlap. At this time his circumferential measurements are significantly increased since he was last see in PT. He is at high risk for complications from lymphedema including cellulitis. His left UE ROM is limited, especially at the shoulder with elevation to only 110 degrees. He will benefit from PT to help him decrease his lymphedema and better learn how to self-manage including with better fitting compression, and work to improve right UE to WFL for improved function and facilitation of lymphatic flow . Compression bandaging was initiated today including fingers and patient was advised to bring his to next appointment to review bandaging and other aspects of lymphedema care. Physical Therapy Plan Frequency and Duration Frequency of Treatment 20 visits Duration of treatment (weeks) 12 Plan of Care Start Date 09/08/22 Plan of Care End Date 12/09/22 Therapeutic Interventions Therapeutic Interventions Lymphedema Management,Manual Therapy,Patient/Caregiver Education,Self-Care/Home Management,Soft Tissue Mobilization,Taping, Therapeutic Exercises Modalities Vasopneumatic Devices Next Visit Focus/Plan Next Note Type Treatment Note Next Visit Plan Patient and education regarding bandaging, compression options, self-care for lymphedema
--- NOTE | 2022-09-08 16:40 | PT.OPPOC ---
Physical, Occupational & Speech Therapy At [facility] Current Diagnoses Lymphedema, not elsewhere classified (09/08/22) Soft tissue disorder, unspecified (09/08/22) Other malaise (09/08/22) Visit Care Team Role Provider Type Danielle Kennedy DO Attending Provider Physician Family Provider Primary Care Provider Referring Provider Specialty: Medical Address: [address] [place] [address], [address], [place], [address] Email: [email or web address] Plan Of Care PT-OP-T Assessment and Plan Start: 09/07/22 12:05 Freq: Status: Active Protocol: Document 09/08/22 12:30 SAK (Rec: 09/08/22 14:22 SAK [id number]) Physical Therapy Assessment Rehab Potential Rehabilitation Potential Good Evaluation Complexity Number of Personal Factors/Comorbidities 1-2 Number of Body Systems Impaired 3 Clinical Presentation at Evaluation Evolving Impairments Impairments Edema,Integument,ROM Goals Three Impairment decreased left UE ROM Impairment left shoulder elevation limited to 110 degrees Short Term Goal (STG) Patient to be independent with progressive HEP for right shoulder ROM STG Duration 10/09/22 Teasel Setter Goal (LTG) Patient able to lift arm overhead to at least 150 degrees to allow him to regain full functional use of his right UE and improve soft tissue mobility for lymphatic flow LTG Duration 12/09/22 Two Impairment lymphedema life impact scale 31% Snf Goal (LTG) decrease lymphedema life impact scale score by at least 50% as measure of improved self-management and function LTG Duration 12/09/22 One Impairment lymphedema left UE Short Term Goal (STG) Patient to be instructed in all aspects of lymphedema care to include skin care, MLD, compression, and lymphedema ex . Decrease lymphedema to stable level (no increase or decrease greater 1 cm over the course of 1 week) STG Duration 10/09/22 Snf Goal (LTG) Patient to be independent with all aspects of lymphedema care with assistance of his , and obtain appropriate compression garments for lymphedema management when maximal circumferential measurements achieved. LTG Duration 12/09/22 Assessment Summary Assessment Patient presents to PT with exacerbation of his left UE lymphedema with poorly fitting gauntlet and inadequate compression in sleeve. He has stopped wearing the gauntlet due to where it applies excess pressure above wrist which appears to push fluid into hand and also increase edema immediately proximal where sleeve and gauntlet overlap. At this time his circumferential measurements are significantly increased since he was last see in PT, he has skin changes including fibrosis and discoloration in the forearm. He is at high risk for complications from lymphedema including cellulitis and open wounds. His left UE ROM is limited, especially at the shoulder with elevation to only 110 degrees. He will benefit from PT to help him decrease his lymphedema and better learn how to self-manage including with better fitting compression, and work to improve right UE to WFL for improved function and facilitation of lymphatic flow . Compression bandaging was initiated today including fingers and patient was advised to bring his to next appointment to review bandaging and other aspects of lymphedema care. Physical Therapy Plan Frequency and Duration Frequency of Treatment 20 visits Duration of treatment (weeks) 12 Plan of Care Start Date 09/08/22 Plan of Care End Date 12/09/22 Therapeutic Interventions Therapeutic Interventions Lymphedema Management,Manual Therapy,Patient/Caregiver Education,Self-Care/Home Management,Soft Tissue Mobilization,Taping, Therapeutic Exercises Modalities Vasopneumatic Devices Next Visit Focus/Plan Next Note Type Treatment Note Next Visit Plan Patient and education regarding bandaging, compression options, self-care for lymphedema Plan of Care Dates Plan of Care Start Date 09/08/22 Plan of Care End Date 12/09/22 Electronically Signed by: Gabriela Ellis, PT 09/09/22 1640 If you are in agreement with this Plan of Care, please return a signed and dated copy. I have reviewed this Plan of Care and certify that the skilled therapy services above are required to meet the patient?s needs. Physician Signature Date Printed Name and Credentials Clinical Instructor Signature Printed Name and Credentials
--- NOTE | 2022-09-10 17:31 | PT.OTN ---
Current Diagnoses Lymphedema, not elsewhere classified (09/10/22) Soft tissue disorder, unspecified (09/10/22) Other malaise (09/10/22) Physical Therapy Treatment Note PT-OP-A Visit Information Start: 09/07/22 12:05 Freq: Status: Active Protocol: Document 09/10/22 13:20 SAK (Rec: 09/10/22 14:13 [facility] [id number]) Out-Patient Physical Therapy Visit Information Visit Information Visit Type Treatment Note Visit Start Time 13:15 Visit Stop Time 14:15 Total Visit Minutes 60 Visit Number 1 Evaluation Information Evaluation Date 09/08/22 Precautions Precautions cardiac history, history CVA with left sided weakness, lymphoma (chronic chemo) PT-OP-B Current Condition Start: 09/07/22 12:05 Freq: Status: Active Protocol: Document 09/10/22 13:20 SAK (Rec: 09/10/22 14:13 [facility] [id number]) Current Condition History of Current Condition Onset Date few months Current Complaints left arm lymphedema History of Current Condition Lymphedema started 9 months ago, unknown reason. CVA with left hemiparesis 2018. Undergoing chronic treatment for lymphoma. Has pacemaker. Worsening ofwelling left UE started several months ago, saw massage therapist, no bandaging. Saw Gifty Ellison PT at this clinic, was sent to get compression sleeve and gauntlet at [facility]. States if he wears gauntlet with sleeve gets indentation at wrist. Currently 5 out of 7 days wears sleeve only, not gauntlet. Treatment Goals Patient/Caregiver Goals Decrease left UE edema and obtain appropriate compression garment. PT-OP-C Subjective Start: 09/07/22 12:05 Freq: Status: Active Protocol: Document 09/08/22 12:30 SAK (Rec: 09/08/22 14:22 [facility] [id number]) Patient Questionnaires Lymphedema Life Impact Score Lymphedema Score 31 OP-PT Pain Assessment Pain Assessment Grid Paper Pain Assessment Grid Completed Yes Location left UE Intensity 1 PT-OP-F Manual Assessment Start: 09/07/22 12:05 Freq: Status: Active Protocol: Document 09/08/22 12:30 SAK (Rec: 09/08/22 14:22 [facility] [id number]) Manual Assessments Soft Tissue Assessment Soft Tissue Mobility Assessment fibrosis with mottled coloring left forearm PT-OP-G Mobility & Gait Start: 09/07/22 12:05 Freq: Status: Active Protocol: Document 09/08/22 12:30 SAK (Rec: 09/08/22 14:22 [facility] [id number]) OP Mobility Evaluation Functional Movements Lifting and Carrying decreased ability PT-OP-H Neuro Start: 09/07/22 12:05 Freq: Status: Active Protocol: Document 09/08/22 12:30 SAK (Rec: 09/08/22 14:22 [facility] [id number]) Sensation Evaluation Gross Sensation Gross Sensation Left UE Impaired PT-OP-J Posture/Palpation/Skin Start: 09/07/22 12:05 Freq: Status: Active Protocol: Document 09/08/22 12:30 SAK (Rec: 09/08/22 14:22 [facility] [id number]) Palpation Assessment Location left UE Palpation Findings Edema,Soft Tissue Tightness Palpation Details fibrosis Skin Assessment Edema Assessment left UE Edema Degree 4+ Edema Appearance Discolored,Firm,Taut Subjective Edema Description Tightness Comments fibrosis left forearm PT-OP-K Range of Motion Start: 09/07/22 12:05 Freq: Status: Active Protocol: Document 09/08/22 12:30 SAK (Rec: 09/08/22 14:22 [facility] [id number]) Shoulder Goniometric Range of Motion Shoulder Left Active Shoulder ROM WFL No Flexion 105 Extension 10 Abduction 100 Horizontal Abduction 75 Horizontal Adduction 35 External Rotation at 0 degrees Abduction 45 Internal Rotation Behind Back (text) L4 Right Active Shoulder ROM WFL Yes Shoulder ROM Limitations Shoulder ROM Limitations Soft Tissue Tightness,Muscle Weakness,Swelling Elbow/Forearm Range of Motion Elbow/Forearm Left Active Elbow/Forearm ROM WFL No Elbow Flexion (degrees) 125 Elbow Extension (degrees) 10 Pronation (degrees) 80 Supination (degrees) 35 Right Active Elbow/Forearm ROM WFL Yes Elbow/Forearm ROM Limitations Elbow/Forearm ROM Limitations Soft Tissue Tightness,Muscle Weakness,Swelling Wrist Goniometric Range of Motion Wrist Left Flexion Active (degrees) 5 Flexion Passive (degrees) 10 Extension Active (degrees) 5 Extension Passive (degrees) 10 Right Wrist ROM WFL Yes Finger Goniometric Range of Motion Finger left Finger ROM WFL No right Finger ROM WFL Yes Finger ROM Limitations Finger ROM Limitations Swelling Comments unable to achieve full concrete stone fabricator due to swelling PT-OP-N Lymphedema Start: 09/07/22 12:05 Freq: Status: Active Protocol: Document 09/10/22 13:20 [facility] (Rec: 09/10/22 14:13 [facility] [id number]) Lymphedema Measurements Upper Extremity Circumference Measurements Left Affected MCP 25.8 cm Dorsum of Hand 28.1 cm Wrist 26.5 cm 5 cm From Wrist Crease 29.4 cm 10 cm From Wrist Crease 32.6 cm 15 cm From Wrist Crease 38.6 cm 20 cm From Wrist Crease 42.8 cm 25 cm From Wrist Crease 44.3 cm 30 cm From Wrist Crease 44 cm 35 cm From Wrist Crease 44.7 cm 40 cm From Wrist Crease 47.2 cm 45 cm From Wrist Crease 48.5 cm Elbow Joint 44.9 cm PT-OP-Q Treatments Start: 09/07/22 12:05 Freq: Status: Active Protocol: Document 09/10/22 13:20 [facility] (Rec: 09/10/22 14:15 [facility] [id number]) Therapeutic Exercises Sitting Exercises open/close hand Side left Reps/Minutes 10x wrist flex/ext Side left Reps/Minutes 10x forearm pron/sup Side left Reps/Minutes 10x elbow flex/ext Side left Reps/Minutes 10x shoulder rolls Side bilateral Reps/Minutes 10x Lymphedema Treatment Manual Lymphatic Drainage Location for left UE lymphedema Comments reviewed Lymphedema Wrapping Body Location left UE Materials Tricofix size F,black foam on forearm, Artiflex (3 rolls), Comprilan 6,8,10x2 Other instructed Sequential Lymphedema Exercises Comments see ex section of chart. Compression Garment Assessment Compression Garment Assessment Details discussed options PT-OP-T Assessment and Plan Start: 09/07/22 12:05 Freq: Status: Active Protocol: Document 09/10/22 13:20 [facility] (Rec: 09/10/22 14:13 [facility] [id number]) Physical Therapy Assessment Impairments Impairments Edema,Integument,ROM Goals Three Impairment decreased left UE ROM Impairment left shoulder elevation limited to 110 degrees Short Term Goal (STG) Patient to be independent with progressive HEP for right shoulder ROM STG Duration 10/09/22 Intermediate Goal (LTG) Patient able to lift arm overhead to at least 150 degrees to allow him to regain full functional use of his right UE and improve soft tissue mobility for lymphatic flow LTG Duration 12/09/22 Two Impairment lymphedema life impact scale 31% Intermediate Goal (LTG) decrease lymphedema life impact scale score by at least 50% as measure of improved self-management and function LTG Duration 12/09/22 One Impairment lymphedema left UE Short Term Goal (STG) Patient to be instructed in all aspects of lymphedema care to include skin care, MLD, compression, and lymphedema ex . Decrease lymphedema to stable level (no increase or decrease greater 1 cm over the course of 1 week) STG Duration 10/09/22 Furniture Inspector Goal (LTG) Patient to be independent with all aspects of lymphedema care with assistance of his , and obtain appropriate compression garments for lymphedema management when maximal circumferential measurements achieved. LTG Duration 12/09/22 Assessment Summary Assessment good circumferential reduction with decreased redness. Black foam put under bandaging today due to patient reports (and photos) of bandaging causing creasing. Physical Therapy Plan Frequency and Duration Frequency of Treatment 20 visits Duration of treatment (weeks) 12 Plan of Care Start Date 09/08/22 Plan of Care End Date 12/09/22 Therapeutic Interventions Therapeutic Interventions Lymphedema Management,Manual Therapy,Patient/Caregiver Education,Self-Care/Home Management,Soft Tissue Mobilization,Taping, Therapeutic Exercises Modalities Vasopneumatic Devices Next Visit Focus/Plan Next Note Type Treatment Note Next Visit Plan Continue lymphedema management . When measurements stabilized refer to obtain compression garent
--- NOTE | 2022-09-15 17:04 | PT.OTN ---
Current Diagnoses Lymphedema, not elsewhere classified (09/15/22) Soft tissue disorder, unspecified (09/15/22) Other malaise (09/15/22) Physical Therapy Treatment Note PT-OP-A Visit Information Start: 09/07/22 12:05 Freq: Status: Active Protocol: Document 09/15/22 08:46 SAK (Rec: 09/15/22 09:36 [facility] [id number]) Out-Patient Physical Therapy Visit Information Visit Information Visit Type Treatment Note Visit Start Time 08:46 Visit Stop Time 09:30 Total Visit Minutes 44 Visit Number 2 Evaluation Information Evaluation Date 09/08/22 Precautions Precautions cardiac history, history CVA with left sided weakness, lymphoma (chronic chemo) PT-OP-B Current Condition Start: 09/07/22 12:05 Freq: Status: Active Protocol: Document 09/15/22 08:46 SAK (Rec: 09/15/22 09:36 [facility] [id number]) Current Condition History of Current Condition Onset Date few months Current Complaints left arm lymphedema History of Current Condition Lymphedema started 9 months ago, unknown reason. CVA with left hemiparesis 2018. Undergoing chronic treatment for lymphoma. Has pacemaker. Worsening ofwelling left UE started several months ago, saw massage therapist, no bandaging. Saw Gifty Ellison PT at this clinic, was sent to get compression sleeve and gauntlet at [facility]. States if he wears gauntlet with sleeve gets indentation at wrist. Currently 5 out of 7 days wears sleeve only, not gauntlet. Treatment Goals Patient/Caregiver Goals Decrease left UE edema and obtain appropriate compression garment. PT-OP-C Subjective Start: 09/07/22 12:05 Freq: Status: Active Protocol: Document 09/08/22 12:30 SAK (Rec: 09/08/22 14:22 [facility] [id number]) Patient Questionnaires Lymphedema Life Impact Score Lymphedema Score 31 OP-PT Pain Assessment Pain Assessment Grid Paper Pain Assessment Grid Completed Yes Location left UE Intensity 1 PT-OP-F Manual Assessment Start: 09/07/22 12:05 Freq: Status: Active Protocol: Document 09/08/22 12:30 SAK (Rec: 09/08/22 14:22 [facility] [id number]) Manual Assessments Soft Tissue Assessment Soft Tissue Mobility Assessment fibrosis with mottled coloring left forearm PT-OP-G Mobility & Gait Start: 09/07/22 12:05 Freq: Status: Active Protocol: Document 09/08/22 12:30 SAK (Rec: 09/08/22 14:22 [facility] [id number]) OP Mobility Evaluation Functional Movements Lifting and Carrying decreased ability PT-OP-H Neuro Start: 09/07/22 12:05 Freq: Status: Active Protocol: Document 09/08/22 12:30 SAK (Rec: 09/08/22 14:22 [facility] [id number]) Sensation Evaluation Gross Sensation Gross Sensation Left UE Impaired PT-OP-J Posture/Palpation/Skin Start: 09/07/22 12:05 Freq: Status: Active Protocol: Document 09/08/22 12:30 SAK (Rec: 09/08/22 14:22 [facility] [id number]) Palpation Assessment Location left UE Palpation Findings Edema,Soft Tissue Tightness Palpation Details fibrosis Skin Assessment Edema Assessment left UE Edema Degree 4+ Edema Appearance Discolored,Firm,Taut Subjective Edema Description Tightness Comments fibrosis left forearm PT-OP-K Range of Motion Start: 09/07/22 12:05 Freq: Status: Active Protocol: Document 09/08/22 12:30 SAK (Rec: 09/08/22 14:22 [facility] [id number]) Shoulder Goniometric Range of Motion Shoulder Left Active Shoulder ROM WFL No Flexion 105 Extension 10 Abduction 100 Horizontal Abduction 75 Horizontal Adduction 35 External Rotation at 0 degrees Abduction 45 Internal Rotation Behind Back (text) L4 Right Active Shoulder ROM WFL Yes Shoulder ROM Limitations Shoulder ROM Limitations Soft Tissue Tightness,Muscle Weakness,Swelling Elbow/Forearm Range of Motion Elbow/Forearm Left Active Elbow/Forearm ROM WFL No Elbow Flexion (degrees) 125 Elbow Extension (degrees) 10 Pronation (degrees) 80 Supination (degrees) 35 Right Active Elbow/Forearm ROM WFL Yes Elbow/Forearm ROM Limitations Elbow/Forearm ROM Limitations Soft Tissue Tightness,Muscle Weakness,Swelling Wrist Goniometric Range of Motion Wrist Left Flexion Active (degrees) 5 Flexion Passive (degrees) 10 Extension Active (degrees) 5 Extension Passive (degrees) 10 Right Wrist ROM WFL Yes Finger Goniometric Range of Motion Finger left Finger ROM WFL No right Finger ROM WFL Yes Finger ROM Limitations Finger ROM Limitations Swelling Comments unable to achieve full post splitter due to swelling PT-OP-N Lymphedema Start: 09/07/22 12:05 Freq: Status: Active Protocol: Document 09/15/22 08:46 [facility] (Rec: 09/15/22 09:36 [facility] [id number]) Lymphedema Measurements Upper Extremity Circumference Measurements Left Affected MCP 25.2 cm Dorsum of Hand 27 cm Wrist 27.5 cm 5 cm From Wrist Crease 28.5 cm 10 cm From Wrist Crease 31.2 cm 15 cm From Wrist Crease 35.5 cm 20 cm From Wrist Crease 39 cm 25 cm From Wrist Crease 42 cm 30 cm From Wrist Crease 42.3 cm 35 cm From Wrist Crease 43.5 cm 40 cm From Wrist Crease 44.8 cm 45 cm From Wrist Crease 46.2 cm PT-OP-Q Treatments Start: 09/07/22 12:05 Freq: Status: Active Protocol: Document 09/15/22 08:46 [facility] (Rec: 09/15/22 09:36 [facility] [id number]) Therapeutic Exercises Supine Exercises sequential lymphedema exercises Reps/Minutes 10x ea Comments AAROM left UE all joints and planes Lymphedema Treatment Lymphedema Wrapping Body Location left UE Materials Tricofix size F,black foam on distal forearm, Artiflex (3 rolls), Comprilan 6,8,10x2 Other instructed Sequential Lymphedema Exercises Comments see ex section of chart. Compression Garment Assessment Compression Garment Assessment Details recommended patient make appointment with [facility] for day after next PT appointment PT-OP-T Assessment and Plan Start: 09/07/22 12:05 Freq: Status: Active Protocol: Document 09/15/22 08:46 [facility] (Rec: 09/15/22 17:04 [facility] [id number]) Physical Therapy Assessment Impairments Impairments Edema,Integument,ROM Goals Three Impairment decreased left UE ROM Impairment left shoulder elevation limited to 110 degrees Short Term Goal (STG) Patient to be independent with progressive HEP for right shoulder ROM STG Duration 10/09/22 Inspector Metal Fabricating Goal (LTG) Patient able to lift arm overhead to at least 150 degrees to allow him to regain full functional use of his right UE and improve soft tissue mobility for lymphatic flow LTG Duration 12/09/22 Two Impairment lymphedema life impact scale 31% Inspector Metal Fabricating Goal (LTG) decrease lymphedema life impact scale score by at least 50% as measure of improved self-management and function LTG Duration 12/09/22 One Impairment lymphedema left UE Short Term Goal (STG) Patient to be instructed in all aspects of lymphedema care to include skin care, MLD, compression, and lymphedema ex . Decrease lymphedema to stable level (no increase or decrease greater 1 cm over the course of 1 week) STG Duration 10/09/22 [facility] Goal (LTG) Patient to be independent with all aspects of lymphedema care with assistance of his , and obtain appropriate compression garments for lymphedema management when maximal circumferential measurements achieved. LTG Duration 12/09/22 Assessment Summary Assessment Further dec in circumferential measurements. Patient given recommendations for improved bandaging by . Encouraged to make appointment with [facility] PT to be remeasured for gauntlet after next PT appointment. Physical Therapy Plan Frequency and Duration Frequency of Treatment 20 visits Duration of treatment (weeks) 12 Plan of Care Start Date 09/08/22 Plan of Care End Date 12/09/22 Therapeutic Interventions Therapeutic Interventions Lymphedema Management,Manual Therapy,Patient/Caregiver Education,Self-Care/Home Management,Soft Tissue Mobilization,Taping, Therapeutic Exercises Modalities Vasopneumatic Devices Next Visit Focus/Plan Next Note Type Treatment Note Next Visit Plan Continue lymphedema management .
--- NOTE | 2022-09-18 17:18 | PT.OTN ---
Current Diagnoses Lymphedema, not elsewhere classified (09/18/22) Soft tissue disorder, unspecified (09/18/22) Other malaise (09/18/22) Physical Therapy Treatment Note PT-OP-A Visit Information Start: 09/07/22 12:05 Freq: Status: Active Protocol: Document 09/18/22 08:46 [facility] (Rec: 09/18/22 09:39 [facility] [id number]) Out-Patient Physical Therapy Visit Information Visit Information Visit Type Treatment Note Visit Start Time 08:46 Visit Stop Time 09:36 Total Visit Minutes 50 Visit Number 3 Precautions Precautions cardiac history, history CVA with left sided weakness, lymphoma (chronic chemo) PT-OP-B Current Condition Start: 09/07/22 12:05 Freq: Status: Active Protocol: Document 09/15/22 08:46 [facility] (Rec: 09/15/22 09:36 [facility] [id number]) Current Condition History of Current Condition Onset Date few months Current Complaints left arm lymphedema History of Current Condition Lymphedema started 9 months ago, unknown reason. CVA with left hemiparesis 2018. Undergoing chronic treatment for lymphoma. Has pacemaker. Worsening ofwelling left UE started several months ago, saw massage therapist, no bandaging. Saw Gifty Ellison PT at this clinic, was sent to get compression sleeve and gauntlet at [facility]. States if he wears gauntlet with sleeve gets indentation at wrist. Currently 5 out of 7 days wears sleeve only, not gauntlet. Treatment Goals Patient/Caregiver Goals Decrease left UE edema and obtain appropriate compression garment. PT-OP-C Subjective Start: 09/07/22 12:05 Freq: Status: Active Protocol: Document 09/18/22 08:46 [facility] (Rec: 09/18/22 09:39 [facility] [id number]) OP-PT Subjective Patient Comments Patient Comments Had to take a shower and got last bandage wet, had to take off. Took shower this am and put sleeve on. Patient going to [facility] tomorrow to consult regarding different gauntlet for improved compression PT-OP-F Manual Assessment Start: 09/07/22 12:05 Freq: Status: Active Protocol: Document 09/08/22 12:30 [facility] (Rec: 09/08/22 14:22 [facility] [id number]) Manual Assessments Soft Tissue Assessment Soft Tissue Mobility Assessment fibrosis with mottled coloring left forearm PT-OP-G Mobility & Gait Start: 09/07/22 12:05 Freq: Status: Active Protocol: Document 09/08/22 12:30 [facility] (Rec: 09/08/22 14:22 [facility] [id number]) OP Mobility Evaluation Functional Movements Lifting and Carrying decreased ability PT-OP-H Neuro Start: 09/07/22 12:05 Freq: Status: Active Protocol: Document 09/08/22 12:30 [facility] (Rec: 09/08/22 14:22 [facility] [id number]) Sensation Evaluation Gross Sensation Gross Sensation Left UE Impaired PT-OP-J Posture/Palpation/Skin Start: 09/07/22 12:05 Freq: Status: Active Protocol: Document 09/08/22 12:30 [facility] (Rec: 09/08/22 14:22 [facility] [id number]) Palpation Assessment Location left UE Palpation Findings Edema,Soft Tissue Tightness Palpation Details fibrosis Skin Assessment Edema Assessment left UE Edema Degree 4+ Edema Appearance Discolored,Firm,Taut Subjective Edema Description Tightness Comments fibrosis left forearm PT-OP-K Range of Motion Start: 09/07/22 12:05 Freq: Status: Active Protocol: Document 09/08/22 12:30 [facility] (Rec: 09/08/22 14:22 [facility] [id number]) Shoulder Goniometric Range of Motion Shoulder Left Active Shoulder ROM WFL No Flexion 105 Extension 10 Abduction 100 Horizontal Abduction 75 Horizontal Adduction 35 External Rotation at 0 degrees Abduction 45 Internal Rotation Behind Back (text) L4 Right Active Shoulder ROM WFL Yes Shoulder ROM Limitations Shoulder ROM Limitations Soft Tissue Tightness,Muscle Weakness,Swelling Elbow/Forearm Range of Motion Elbow/Forearm Left Active Elbow/Forearm ROM WFL No Elbow Flexion (degrees) 125 Elbow Extension (degrees) 10 Pronation (degrees) 80 Supination (degrees) 35 Right Active Elbow/Forearm ROM WFL Yes Elbow/Forearm ROM Limitations Elbow/Forearm ROM Limitations Soft Tissue Tightness,Muscle Weakness,Swelling Wrist Goniometric Range of Motion Wrist Left Flexion Active (degrees) 5 Flexion Passive (degrees) 10 Extension Active (degrees) 5 Extension Passive (degrees) 10 Right Wrist ROM WFL Yes Finger Goniometric Range of Motion Finger left Finger ROM WFL No right Finger ROM WFL Yes Finger ROM Limitations Finger ROM Limitations Swelling Comments unable to achieve full engineer soils due to swelling PT-OP-N Lymphedema Start: 09/07/22 12:05 Freq: Status: Active Protocol: Document 09/15/22 08:46 [facility] (Rec: 09/15/22 09:36 [facility] [id number]) Lymphedema Measurements Upper Extremity Circumference Measurements Left Affected MCP 25.2 cm Dorsum of Hand 27 cm Wrist 27.5 cm 5 cm From Wrist Crease 28.5 cm 10 cm From Wrist Crease 31.2 cm 15 cm From Wrist Crease 35.5 cm 20 cm From Wrist Crease 39 cm 25 cm From Wrist Crease 42 cm 30 cm From Wrist Crease 42.3 cm 35 cm From Wrist Crease 43.5 cm 40 cm From Wrist Crease 44.8 cm 45 cm From Wrist Crease 46.2 cm PT-OP-Q Treatments Start: 09/07/22 12:05 Freq: Status: Active Protocol: Document 09/18/22 08:46 [facility] (Rec: 09/18/22 17:17 [facility] [id number]) Therapeutic Exercises Supine Exercises sequential lymphedema exercises Comments HEP Lymphedema Treatment Manual Lymphatic Drainage Location for left UE lymphedema Lymphedema Wrapping Body Location left UE Materials Tricofix size F,black foam on distal forearm, Artiflex (3 rolls), Comprilan 6,8,10x2 Compression Garment Assessment Compression Garment Assessment Details Patient to go to [facility] tomorrow for consultation, PT sent email to ship yard electrical person. Patient Education Compression Garments appropriate fit and wear Other Other soft tissue mobilization of areas of tissue fibrosis in hand and forearm. PT-OP-T Assessment and Plan Start: 09/07/22 12:05 Freq: Status: Active Protocol: Document 09/18/22 08:46 [facility] (Rec: 09/18/22 09:39 [facility] [id number]) Physical Therapy Assessment Impairments Impairments Edema,Integument,ROM Goals Three Impairment decreased left UE ROM Impairment left shoulder elevation limited to 110 degrees Short Term Goal (STG) Patient to be independent with progressive HEP for right shoulder ROM STG Duration 10/09/22 Process Project Engineer Goal (LTG) Patient able to lift arm overhead to at least 150 degrees to allow him to regain full functional use of his right UE and improve soft tissue mobility for lymphatic flow LTG Duration 12/09/22 Two Impairment lymphedema life impact scale 31% Process Project Engineer Goal (LTG) decrease lymphedema life impact scale score by at least 50% as measure of improved self-management and function LTG Duration 12/09/22 One Impairment lymphedema left UE Short Term Goal (STG) Patient to be instructed in all aspects of lymphedema care to include skin care, MLD, compression, and lymphedema ex . Decrease lymphedema to stable level (no increase or decrease greater 1 cm over the course of 1 week) STG Duration 10/09/22 Process Project Engineer Goal (LTG) Patient to be independent with all aspects of lymphedema care with assistance of his , and obtain appropriate compression garments for lymphedema management when maximal circumferential measurements achieved. LTG Duration 12/09/22 Assessment Summary Assessment Patient wearing compression sleeve without gauntlet; sleeve bunched at wrist so causing tourniquet effect with inc edema into hand. Patient education on importance of correct application and fit of sleeve to prevent tourniquet effect with patient demonstrating good understanding. Physical Therapy Plan Frequency and Duration Frequency of Treatment 20 visits Duration of treatment (weeks) 12 Plan of Care Start Date 09/08/22 Plan of Care End Date 12/09/22 Therapeutic Interventions Therapeutic Interventions Lymphedema Management,Manual Therapy,Patient/Caregiver Education,Self-Care/Home Management,Soft Tissue Mobilization,Taping, Therapeutic Exercises Modalities Vasopneumatic Devices Next Visit Focus/Plan Next Note Type Treatment Note Next Visit Plan Continue lymphedema management . Emphasis on manual treatment, soft tissue mobilization and MLD.
--- NOTE | 2022-10-07 16:32 | PT.OTN ---
Current Diagnoses Lymphedema, not elsewhere classified (10/07/22) Soft tissue disorder, unspecified (10/07/22) Other malaise (10/07/22) Physical Therapy Treatment Note PT-OP-A Visit Information Start: 09/07/22 12:05 Freq: Status: Active Protocol: Document 10/07/22 14:59 [facility] (Rec: 10/07/22 15:22 [facility] [id number]) Out-Patient Physical Therapy Visit Information Visit Information Visit Type Treatment Note Visit Start Time 15:00 Visit Stop Time 16:10 Total Visit Minutes 70 Visit Number 4 Precautions Precautions cardiac history, history CVA with left sided weakness, lymphoma (chronic chemo) PT-OP-B Current Condition Start: 09/07/22 12:05 Freq: Status: Active Protocol: Document 10/07/22 14:59 [facility] (Rec: 10/07/22 15:22 [facility] [id number]) Current Condition History of Current Condition Onset Date few months Current Complaints left arm lymphedema History of Current Condition Lymphedema started 9 months ago, unknown reason. CVA with left hemiparesis 2018. Undergoing chronic treatment for lymphoma. Has pacemaker. Worsening ofwelling left UE started several months ago, saw massage therapist, no bandaging. Saw Gifty Ellison PT at this clinic, was sent to get compression sleeve and gauntlet at [facility]. States if he wears gauntlet with sleeve gets indentation at wrist. Currently 5 out of 7 days wears sleeve only, not gauntlet. Treatment Goals Patient/Caregiver Goals Decrease left UE edema and obtain appropriate compression garment. PT-OP-C Subjective Start: 09/07/22 12:05 Freq: Status: Active Protocol: Document 10/07/22 14:59 [facility] (Rec: 10/07/22 16:29 [facility] [id number]) OP-PT Subjective Patient Comments Patient Comments Patient comes to PT wearing old sleeve (new hasn't come yet), no gauntlet (due to cutting into wrist) but patient pulling sleeve down over hand. Patient reports his hasn't bandaged him due to them expecting compression sleeve to come. Has done a little massaging of his left arm, hasn't really done the exercises much. Patient Reported Progress Worse PT-OP-F Manual Assessment Start: 09/07/22 12:05 Freq: Status: Active Protocol: Document 09/08/22 12:30 [facility] (Rec: 09/08/22 14:22 [facility] [id number]) Manual Assessments Soft Tissue Assessment Soft Tissue Mobility Assessment fibrosis with mottled coloring left forearm PT-OP-G Mobility & Gait Start: 09/07/22 12:05 Freq: Status: Active Protocol: Document 09/08/22 12:30 [facility] (Rec: 09/08/22 14:22 [facility] [id number]) OP Mobility Evaluation Functional Movements Lifting and Carrying decreased ability PT-OP-H Neuro Start: 09/07/22 12:05 Freq: Status: Active Protocol: Document 09/08/22 12:30 [facility] (Rec: 09/08/22 14:22 [facility] [id number]) Sensation Evaluation Gross Sensation Gross Sensation Left UE Impaired PT-OP-J Posture/Palpation/Skin Start: 09/07/22 12:05 Freq: Status: Active Protocol: Document 09/08/22 12:30 [facility] (Rec: 09/08/22 14:22 [facility] [id number]) Palpation Assessment Location left UE Palpation Findings Edema,Soft Tissue Tightness Palpation Details fibrosis Skin Assessment Edema Assessment left UE Edema Degree 4+ Edema Appearance Discolored,Firm,Taut Subjective Edema Description Tightness Comments fibrosis left forearm PT-OP-K Range of Motion Start: 09/07/22 12:05 Freq: Status: Active Protocol: Document 09/08/22 12:30 [facility] (Rec: 09/08/22 14:22 [facility] [id number]) Shoulder Goniometric Range of Motion Shoulder Left Active Shoulder ROM WFL No Flexion 105 Extension 10 Abduction 100 Horizontal Abduction 75 Horizontal Adduction 35 External Rotation at 0 degrees Abduction 45 Internal Rotation Behind Back (text) L4 Right Active Shoulder ROM WFL Yes Shoulder ROM Limitations Shoulder ROM Limitations Soft Tissue Tightness,Muscle Weakness,Swelling Elbow/Forearm Range of Motion Elbow/Forearm Left Active Elbow/Forearm ROM WFL No Elbow Flexion (degrees) 125 Elbow Extension (degrees) 10 Pronation (degrees) 80 Supination (degrees) 35 Right Active Elbow/Forearm ROM WFL Yes Elbow/Forearm ROM Limitations Elbow/Forearm ROM Limitations Soft Tissue Tightness,Muscle Weakness,Swelling Wrist Goniometric Range of Motion Wrist Left Flexion Active (degrees) 5 Flexion Passive (degrees) 10 Extension Active (degrees) 5 Extension Passive (degrees) 10 Right Wrist ROM WFL Yes Finger Goniometric Range of Motion Finger left Finger ROM WFL No right Finger ROM WFL Yes Finger ROM Limitations Finger ROM Limitations Swelling Comments unable to achieve full lens generator due to swelling PT-OP-N Lymphedema Start: 09/07/22 12:05 Freq: Status: Active Protocol: Document 10/07/22 14:59 [facility] (Rec: 10/07/22 15:22 [facility] [id number]) Lymphedema Measurements Upper Extremity Circumference Measurements Left Affected MCP 25.2 cm Dorsum of Hand 26.9 cm Wrist 27.2 cm 5 cm From Wrist Crease 31.1 cm 10 cm From Wrist Crease 32.8 cm 15 cm From Wrist Crease 38.6 cm 20 cm From Wrist Crease 44 cm 25 cm From Wrist Crease 46.3 cm 30 cm From Wrist Crease 47.4 cm 35 cm From Wrist Crease 48 cm 40 cm From Wrist Crease 50.9 cm 45 cm From Wrist Crease 52.1 cm PT-OP-Q Treatments Start: 09/07/22 12:05 Freq: Status: Active Protocol: Document 10/07/22 14:59 [facility] (Rec: 10/07/22 15:22 [facility] [id number]) Therapeutic Exercises Supine Exercises sequential lymphedema exercises Supine Exercise Name AAROM all joints and planes Side left Reps/Minutes 5-10 reps ea Comments PT physical guidance Sitting Exercises open/close hand Side left Reps/Minutes 10x wrist flex/ext Side left Reps/Minutes 10x forearm pron/sup Side left Reps/Minutes 10x elbow flex/ext Side left Reps/Minutes 10x trunk rotation Side bilateral Reps/Minutes 5x shoulder rolls Side bilateral Reps/Minutes 10x Self-Care/Home Management Treatment Education Patient Education Home Exercise Program Other Education Importance of all aspects of lymphedema care: HEP, bandaging, self-massage, skin care; importance of all Lymphedema Treatment Manual Lymphatic Drainage Location for left UE lymphedema Lymphedema Wrapping Body Location left UE Materials Tricofix size F,black foam on distal forearm, Artiflex (3 rolls), Comprilan 6,8,10x2 Compression Garment Assessment Compression Garment Assessment Details Patient called [facility] while in today's session, they report garment finally shipped. Other Other Stressed importance of compliance at home with bandaging, exercise, massage especially in light of significant increase in lymphedema measurements since last seen. PT-OP-T Assessment and Plan Start: 09/07/22 12:05 Freq: Status: Active Protocol: Document 10/07/22 14:59 [facility] (Rec: 10/07/22 15:22 [facility] [id number]) Physical Therapy Assessment Goals Three Impairment decreased left UE ROM Impairment left shoulder elevation limited to 110 degrees Short Term Goal (STG) Patient to be independent with progressive HEP for right shoulder ROM STG Duration 10/09/22 Payroll Associate Goal (LTG) Patient able to lift arm overhead to at least 150 degrees to allow him to regain full functional use of his right UE and improve soft tissue mobility for lymphatic flow LTG Duration 12/09/22 Two Impairment lymphedema life impact scale 31% Snf Goal (LTG) decrease lymphedema life impact scale score by at least 50% as measure of improved self-management and function LTG Duration 12/09/22 One Impairment lymphedema left UE Short Term Goal (STG) Patient to be instructed in all aspects of lymphedema care to include skin care, MLD, compression, and lymphedema ex . Decrease lymphedema to stable level (no increase or decrease greater 1 cm over the course of 1 week) STG Duration 10/09/22 Payroll Associate Goal (LTG) Patient to be independent with all aspects of lymphedema care with assistance of his , and obtain appropriate compression garments for lymphedema management when maximal circumferential measurements achieved. LTG Duration 12/09/22 Assessment Summary Assessment Significant increase in lymphedema measurements apparently due to poor self- care in the home; no bandaging , wearing old sleeve stretched down into hand but only able to tolerate for approx 4 hrs per day, otherwise not wearing any garment. PT stressed importance of all aspects of lymphedema management. Patient scheduled for next 2 days in PT openings for increased frequency of PT. Physical Therapy Plan Frequency and Duration Frequency of Treatment 20 visits Duration of treatment (weeks) 12 Plan of Care Start Date 09/08/22 Plan of Care End Date 12/09/22 Therapeutic Interventions Therapeutic Interventions Lymphedema Management,Manual Therapy,Patient/Caregiver Education,Self-Care/Home Management,Soft Tissue Mobilization,Taping, Therapeutic Exercises Modalities Vasopneumatic Devices Next Visit Focus/Plan Next Note Type Treatment Note Next Visit Plan Continue lymphedema management . Emphasis on manual treatment, soft tissue mobilization and MLD, bandaging. Consider foam on wrist and forearm if no change in lymphedema measurements.
--- NOTE | 2022-10-08 16:22 | PT.OTN ---
Current Diagnoses Lymphedema, not elsewhere classified (10/08/22) Soft tissue disorder, unspecified (10/08/22) Other malaise (10/08/22) Physical Therapy Treatment Note PT-OP-A Visit Information Start: 09/07/22 12:05 Freq: Status: Active Protocol: Document 10/08/22 12:29 [facility] (Rec: 10/08/22 13:17 [facility] [id number]) Out-Patient Physical Therapy Visit Information Visit Information Visit Type Treatment Note Visit Start Time 12:30 Visit Stop Time 13:15 Total Visit Minutes 45 Visit Number 5 Precautions Precautions cardiac history, history CVA with left sided weakness, lymphoma (chronic chemo) PT-OP-B Current Condition Start: 09/07/22 12:05 Freq: Status: Active Protocol: Document 10/08/22 12:29 [facility] (Rec: 10/08/22 13:17 [facility] [id number]) Current Condition History of Current Condition Onset Date few months Current Complaints left arm lymphedema History of Current Condition Lymphedema started 9 months ago, unknown reason. CVA with left hemiparesis 2018. Undergoing chronic treatment for lymphoma. Has pacemaker. Worsening ofwelling left UE started several months ago, saw massage therapist, no bandaging. Saw Gifty Ellison PT at this clinic, was sent to get compression sleeve and gauntlet at [facility]. States if he wears gauntlet with sleeve gets indentation at wrist. Currently 5 out of 7 days wears sleeve only, not gauntlet. PT-OP-C Subjective Start: 09/07/22 12:05 Freq: Status: Active Protocol: Document 10/08/22 12:29 [facility] (Rec: 10/08/22 13:17 [facility] [id number]) OP-PT Subjective Patient Comments Patient Comments Reports he did the exercises yesterday after PT. PT-OP-F Manual Assessment Start: 09/07/22 12:05 Freq: Status: Active Protocol: Document 09/08/22 12:30 [facility] (Rec: 09/08/22 14:22 [facility] [id number]) Manual Assessments Soft Tissue Assessment Soft Tissue Mobility Assessment fibrosis with mottled coloring left forearm PT-OP-G Mobility & Gait Start: 09/07/22 12:05 Freq: Status: Active Protocol: Document 09/08/22 12:30 [facility] (Rec: 09/08/22 14:22 [facility] [id number]) OP Mobility Evaluation Functional Movements Lifting and Carrying decreased ability PT-OP-H Neuro Start: 09/07/22 12:05 Freq: Status: Active Protocol: Document 09/08/22 12:30 [facility] (Rec: 09/08/22 14:22 [facility] [id number]) Sensation Evaluation Gross Sensation Gross Sensation Left UE Impaired PT-OP-J Posture/Palpation/Skin Start: 09/07/22 12:05 Freq: Status: Active Protocol: Document 09/08/22 12:30 [facility] (Rec: 09/08/22 14:22 [facility] [id number]) Palpation Assessment Location left UE Palpation Findings Edema,Soft Tissue Tightness Palpation Details fibrosis Skin Assessment Edema Assessment left UE Edema Degree 4+ Edema Appearance Discolored,Firm,Taut Subjective Edema Description Tightness Comments fibrosis left forearm PT-OP-K Range of Motion Start: 09/07/22 12:05 Freq: Status: Active Protocol: Document 09/08/22 12:30 [facility] (Rec: 09/08/22 14:22 [facility] [id number]) Shoulder Goniometric Range of Motion Shoulder Left Active Shoulder ROM WFL No Flexion 105 Extension 10 Abduction 100 Horizontal Abduction 75 Horizontal Adduction 35 External Rotation at 0 degrees Abduction 45 Internal Rotation Behind Back (text) L4 Right Active Shoulder ROM WFL Yes Shoulder ROM Limitations Shoulder ROM Limitations Soft Tissue Tightness,Muscle Weakness,Swelling Elbow/Forearm Range of Motion Elbow/Forearm Left Active Elbow/Forearm ROM WFL No Elbow Flexion (degrees) 125 Elbow Extension (degrees) 10 Pronation (degrees) 80 Supination (degrees) 35 Right Active Elbow/Forearm ROM WFL Yes Elbow/Forearm ROM Limitations Elbow/Forearm ROM Limitations Soft Tissue Tightness,Muscle Weakness,Swelling Wrist Goniometric Range of Motion Wrist Left Flexion Active (degrees) 5 Flexion Passive (degrees) 10 Extension Active (degrees) 5 Extension Passive (degrees) 10 Right Wrist ROM WFL Yes Finger Goniometric Range of Motion Finger left Finger ROM WFL No right Finger ROM WFL Yes Finger ROM Limitations Finger ROM Limitations Swelling Comments unable to achieve full endoscopy support specialist due to swelling PT-OP-N Lymphedema Start: 09/07/22 12:05 Freq: Status: Active Protocol: Document 10/08/22 12:29 [facility] (Rec: 10/08/22 13:17 [facility] [id number]) Lymphedema Measurements Upper Extremity Circumference Measurements Left Affected MCP 24.3 cm Dorsum of Hand 27.3 cm Wrist 25.2 cm 5 cm From Wrist Crease 28.2 cm 10 cm From Wrist Crease 30.3 cm 15 cm From Wrist Crease 38 cm 20 cm From Wrist Crease 44.6 cm 25 cm From Wrist Crease 45.3 cm 30 cm From Wrist Crease 45.4 cm 35 cm From Wrist Crease 45.4 cm 40 cm From Wrist Crease 47.3 cm 45 cm From Wrist Crease 48.8 cm Elbow Joint 45.3 cm PT-OP-Q Treatments Start: 09/07/22 12:05 Freq: Status: Active Protocol: Document 10/08/22 12:29 [facility] (Rec: 10/08/22 13:17 [facility] [id number]) Lymphedema Treatment Manual Lymphatic Drainage Location for left UE lymphedema Comments extra time and tissue depth on areas of skin fibrosis Lymphedema Wrapping Body Location left UE Materials Tricofix size F,black foam on forearm wrist to elbow, Artiflex (3 rolls), Comprilan 6,8,10x2 Sequential Lymphedema Exercises Comments see ex section of chart. Compression Garment Assessment Compression Garment Assessment Details Patient has not obtained yet. Patient Education Compression Garments appropriate fit and wear; day only, may need to consider night garment PT-OP-T Assessment and Plan Start: 09/07/22 12:05 Freq: Status: Active Protocol: Document 10/08/22 12:29 [facility] (Rec: 10/08/22 13:17 [facility] [id number]) Physical Therapy Assessment Goals Three Impairment decreased left UE ROM Impairment left shoulder elevation limited to 110 degrees Short Term Goal (STG) Patient to be independent with progressive HEP for right shoulder ROM STG Duration 10/09/22 Detention Goal (LTG) Patient able to lift arm overhead to at least 150 degrees to allow him to regain full functional use of his right UE and improve soft tissue mobility for lymphatic flow LTG Duration 12/09/22 Two Impairment lymphedema life impact scale 31% Detention Goal (LTG) decrease lymphedema life impact scale score by at least 50% as measure of improved self-management and function LTG Duration 12/09/22 One Impairment lymphedema left UE Short Term Goal (STG) Patient to be instructed in all aspects of lymphedema care to include skin care, MLD, compression, and lymphedema ex . Decrease lymphedema to stable level (no increase or decrease greater 1 cm over the course of 1 week) STG Duration 10/09/22 Detention Goal (LTG) Patient to be independent with all aspects of lymphedema care with assistance of his , and obtain appropriate compression garments for lymphedema management when maximal circumferential measurements achieved. LTG Duration 12/09/22 Assessment Summary Assessment Decrease in circumferential measurements most significantly lower arm from wrist proximal, and upper arm. Only measurement larger was at 20 cm prox to wrist; appears fluid moved to this area, possibly pooled due to patient not moving left UE( holds in flexion). Encouraged increased ROM and PT applied herringbone pattern for increased compression wrist to elbow. Physical Therapy Plan Frequency and Duration Frequency of Treatment 20 visits Duration of treatment (weeks) 12 Plan of Care Start Date 09/08/22 Plan of Care End Date 12/09/22 Therapeutic Interventions Therapeutic Interventions Lymphedema Management,Manual Therapy,Patient/Caregiver Education,Self-Care/Home Management,Soft Tissue Mobilization,Taping, Therapeutic Exercises Modalities Vasopneumatic Devices Next Visit Focus/Plan Next Note Type Treatment Note Next Visit Plan Continue lymphedema management . Emphasis on manual treatment, soft tissue mobilization and MLD, bandaging. ASsess fit of new compression garments if obtains
--- NOTE | 2022-10-13 15:22 | PT.OTN ---
Current Diagnoses Lymphedema, not elsewhere classified (10/13/22) Soft tissue disorder, unspecified (10/13/22) Other malaise (10/13/22) Physical Therapy Treatment Note PT-OP-A Visit Information Start: 09/07/22 12:05 Freq: Status: Active Protocol: Document 10/13/22 13:19 [facility] (Rec: 10/13/22 13:51 [facility] [id number]) Out-Patient Physical Therapy Visit Information Visit Information Visit Type Treatment Note Visit Start Time 13:15 Visit Stop Time 14:45 Total Visit Minutes 90 Visit Number 7 Precautions Precautions cardiac history, history CVA with left sided weakness, lymphoma (chronic chemo) PT-OP-B Current Condition Start: 09/07/22 12:05 Freq: Status: Active Protocol: Document 10/13/22 13:19 [facility] (Rec: 10/13/22 13:51 [facility] [id number]) Current Condition History of Current Condition Onset Date few months Current Complaints left arm lymphedema History of Current Condition Lymphedema started 9 months ago, unknown reason. CVA with left hemiparesis 2018. Undergoing chronic treatment for lymphoma. Has pacemaker. Worsening of swelling left UE started several months ago, saw massage therapist, no bandaging. Saw Gifty Ellison PT at this clinic, was sent to get compression sleeve and gauntlet at [facility]. States if he wears gauntlet with sleeve gets indentation at wrist. Currently 5 out of 7 days wears sleeve only, not gauntlet. Treatment Goals Patient/Caregiver Goals Decrease left UE edema and obtain appropriate compression garment. PT-OP-C Subjective Start: 09/07/22 12:05 Freq: Status: Active Protocol: Document 10/13/22 13:19 [facility] (Rec: 10/13/22 13:51 [facility] [id number]) OP-PT Subjective Patient Comments Patient Comments Got new compression garments from [facility] last Thursday, difficult to don , has to help, didn't have much time prior to PT, admits to seeing bunching of fabric at his wrist despite just having it put on 10 min ago; we had to hurry. PT-OP-F Manual Assessment Start: 09/07/22 12:05 Freq: Status: Active Protocol: Document 09/08/22 12:30 [facility] (Rec: 09/08/22 14:22 [facility] [id number]) Manual Assessments Soft Tissue Assessment Soft Tissue Mobility Assessment fibrosis with mottled coloring left forearm PT-OP-G Mobility & Gait Start: 09/07/22 12:05 Freq: Status: Active Protocol: Document 09/08/22 12:30 [facility] (Rec: 09/08/22 14:22 [facility] [id number]) OP Mobility Evaluation Functional Movements Lifting and Carrying decreased ability PT-OP-H Neuro Start: 09/07/22 12:05 Freq: Status: Active Protocol: Document 09/08/22 12:30 [facility] (Rec: 09/08/22 14:22 [facility] [id number]) Sensation Evaluation Gross Sensation Gross Sensation Left UE Impaired PT-OP-J Posture/Palpation/Skin Start: 09/07/22 12:05 Freq: Status: Active Protocol: Document 09/08/22 12:30 [facility] (Rec: 09/08/22 14:22 [facility] [id number]) Palpation Assessment Location left UE Palpation Findings Edema,Soft Tissue Tightness Palpation Details fibrosis Skin Assessment Edema Assessment left UE Edema Degree 4+ Edema Appearance Discolored,Firm,Taut Subjective Edema Description Tightness Comments fibrosis left forearm PT-OP-K Range of Motion Start: 09/07/22 12:05 Freq: Status: Active Protocol: Document 09/08/22 12:30 [facility] (Rec: 09/08/22 14:22 [facility] [id number]) Shoulder Goniometric Range of Motion Shoulder Left Active Shoulder ROM WFL No Flexion 105 Extension 10 Abduction 100 Horizontal Abduction 75 Horizontal Adduction 35 External Rotation at 0 degrees Abduction 45 Internal Rotation Behind Back (text) L4 Right Active Shoulder ROM WFL Yes Shoulder ROM Limitations Shoulder ROM Limitations Soft Tissue Tightness,Muscle Weakness,Swelling Elbow/Forearm Range of Motion Elbow/Forearm Left Active Elbow/Forearm ROM WFL No Elbow Flexion (degrees) 125 Elbow Extension (degrees) 10 Pronation (degrees) 80 Supination (degrees) 35 Right Active Elbow/Forearm ROM WFL Yes Elbow/Forearm ROM Limitations Elbow/Forearm ROM Limitations Soft Tissue Tightness,Muscle Weakness,Swelling Wrist Goniometric Range of Motion Wrist Left Flexion Active (degrees) 5 Flexion Passive (degrees) 10 Extension Active (degrees) 5 Extension Passive (degrees) 10 Right Wrist ROM WFL Yes Finger Goniometric Range of Motion Finger left Finger ROM WFL No right Finger ROM WFL Yes Finger ROM Limitations Finger ROM Limitations Swelling Comments unable to achieve full drop wire builder due to swelling PT-OP-N Lymphedema Start: 09/07/22 12:05 Freq: Status: Active Protocol: Document 10/13/22 13:19 [facility] (Rec: 10/13/22 13:51 [facility] [id number]) Lymphedema Measurements Upper Extremity Circumference Measurements Left Affected MCP 26.2 cm Dorsum of Hand 27.9 cm Wrist 25.2 cm 5 cm From Wrist Crease 29.3 cm 10 cm From Wrist Crease 31.9 cm 15 cm From Wrist Crease 38.7 cm 20 cm From Wrist Crease 43.2 cm 25 cm From Wrist Crease 44.5 cm 30 cm From Wrist Crease 43.8 cm 35 cm From Wrist Crease 44.5 cm 40 cm From Wrist Crease 46 cm 45 cm From Wrist Crease 48 cm Elbow Joint 45.9 cm PT-OP-Q Treatments Start: 09/07/22 12:05 Freq: Status: Active Protocol: Document 10/13/22 13:19 [facility] (Rec: 10/13/22 13:51 [facility] [id number]) Therapeutic Exercises Supine Exercises sequential lymphedema exercises Supine Exercise Name AAROM all joints and planes Side left Reps/Minutes 5-10 reps ea Comments PT physical guidance Lymphedema Treatment Manual Lymphatic Drainage Location for left UE lymphedema Comments extra time and tissue depth on areas of skin fibrosis Lymphedema Wrapping Body Location left UE Materials Tricofix size F,black foam on forearm wrist to elbow, Artiflex (3 rolls), Comprilan 6,8,10x2 Sequential Lymphedema Exercises Comments see ex section of chart. Compression Garment Assessment Compression Garment Assessment Details Poor application with proximal end of gauntlet and distal end of sleeve both bunching at the wrist. Importance of proper fit, moving fabric to allow bridging of wrist area to prevent tourniquet effect. Recommended TributeWrap for night wear or compression bandaging for at night. Patient Education Compression Garments reviewed importance of correct fit, no bunching of fabric at wrist, Sequential Lymphedema Exercises importance of ex while wearing compression Other wear compression gauntlet over sleeve for easier adjustment, better bridging of wrist PT-OP-R Modalities Start: 09/07/22 12:05 Freq: Status: Active Protocol: Document 10/13/22 13:19 [facility] (Rec: 10/13/22 15:22 [facility] [id number]) Compression Pump Treatment Treatment Location Left Arm Pressure Amount (mmHg) (mmHG) 35 Inflation Time (Seconds) 30 Deflation Time (Seconds) 10 Treatment Duration (minutes) 30 Treatment Tolerance Good PT-OP-T Assessment and Plan Start: 09/07/22 12:05 Freq: Status: Active Protocol: Document 10/13/22 13:19 [facility] (Rec: 10/13/22 13:51 [facility] [id number]) Physical Therapy Assessment Impairments Impairments Edema,Integument,ROM Goals Three Impairment decreased left UE ROM Impairment left shoulder elevation limited to 110 degrees Short Term Goal (STG) Patient to be independent with progressive HEP for right shoulder ROM 10/13/22: pt. independent, fair compliance STG Duration 10/09/22 Drying Tumbler Operator Goal (LTG) Patient able to lift arm overhead to at least 150 degrees to allow him to regain full functional use of his right UE and improve soft tissue mobility for lymphatic flow LTG Duration 12/09/22 Two Impairment lymphedema life impact scale 31% Drying Tumbler Operator Goal (LTG) decrease lymphedema life impact scale score by at least 50% as measure of improved self-management and function 10/13/22: goal progress LTG Duration 12/09/22 One Impairment lymphedema left UE Short Term Goal (STG) Patient to be instructed in all aspects of lymphedema care to include skin care, MLD, compression, and lymphedema ex . Decrease lymphedema to stable level (no increase or decrease greater 1 cm over the course of 1 week) 10/13/22: has been difficult to stabilize measurements, due to 's work schedule difficulty in getting patient bandaged or now compression sleeve/gauntlet applied timely STG Duration 10/09/22 [facility] Goal (LTG) Patient to be independent with all aspects of lymphedema care with assistance of his , and obtain appropriate compression garments for lymphedema management when maximal circumferential measurements achieved. LTG Duration 12/09/22 Assessment Summary Assessment Patient seen in PT for lymphedema management since September 08, 2022. We have achieved reduction in circumferential measurements but he still has significant fibrosis and hyperkeratosis in his left UE. Bandaging at home is challenging as patient unable to due to left hemiparesis and work schedule often doesn't allow him to be bandaged in a timely manner. Difficulty with self MLD due to patient size and low activity tolerance. Patient was fit with new compression sleeve and gauntlet at [facility] on Thursday but comes to PT today with bunching of fabric at his wrist and increased circumferential measurements. just home from work and applied garments for patient and pt reports has been on for about 10 min but tourniquet effect at wrist significant with indentation. Importance of correct application and fit stressed. Recommended TributeWrap for night wear to assist with lymphedema management. Also discussed benefit of sequential pneumatic pump for home use; patient receptive to exploring possibility of obtaining. Due to difficulty with his home management for lymphedema especially related to the hemiparesis on his left side, feel a sequential pneumatic pump would be highly beneficial for PT. Physical Therapy Plan Frequency and Duration Frequency of Treatment 20 visits Duration of treatment (weeks) 12 Plan of Care Start Date 09/08/22 Plan of Care End Date 12/09/22 Therapeutic Interventions Therapeutic Interventions Lymphedema Management,Manual Therapy,Patient/Caregiver Education,Self-Care/Home Management,Soft Tissue Mobilization,Taping, Therapeutic Exercises Modalities Vasopneumatic Devices Next Visit Focus/Plan Next Note Type Treatment Note Next Visit Plan Request order for sequential pneumatic pump and submit paperwork. Continuie lymphedema management, further work on correct donning of sleeve and glove. Have patient come to appointment for further training in assisting patient with self management.
--- NOTE | 2022-10-16 16:57 | PT.OTN ---
Current Diagnoses Lymphedema, not elsewhere classified (10/16/22) Soft tissue disorder, unspecified (10/16/22) Other malaise (10/16/22) Physical Therapy Treatment Note PT-OP-A Visit Information Start: 09/07/22 12:05 Freq: Status: Active Protocol: Document 10/16/22 10:32 SAK (Rec: 10/16/22 10:33 [facility] [id number]) Out-Patient Physical Therapy Visit Information Visit Information Visit Type Treatment Note Visit Start Time 10:32 Visit Stop Time 12:00 Total Visit Minutes 88 Visit Number 8 Precautions Precautions cardiac history, history CVA with left sided weakness, lymphoma (chronic chemo) PT-OP-B Current Condition Start: 09/07/22 12:05 Freq: Status: Active Protocol: Document 10/16/22 10:32 SAK (Rec: 10/16/22 10:33 [facility] [id number]) Current Condition History of Current Condition Onset Date few months Current Complaints left arm lymphedema History of Current Condition Lymphedema started 9 months ago, unknown reason. CVA with left hemiparesis 2018. Undergoing chronic treatment for lymphoma. Has pacemaker. Worsening of swelling left UE started several months ago, saw massage therapist, no bandaging. Saw Gifty Ellison PT at this clinic, was sent to get compression sleeve and gauntlet at [facility]. States if he wears gauntlet with sleeve gets indentation at wrist. Currently 5 out of 7 days wears sleeve only, not gauntlet. PT-OP-C Subjective Start: 09/07/22 12:05 Freq: Status: Active Protocol: Document 10/16/22 10:32 SAK (Rec: 10/16/22 10:35 [facility] [id number]) OP-PT Subjective Patient Comments Patient Comments pt reports still having difficulty with tourniquet effect from compression garments. present for appointment for further training as at this time best option due to 2nd compression gauntlet no better than the first. receptive to bandaging patient UE and discussing options. PT-OP-F Manual Assessment Start: 09/07/22 12:05 Freq: Status: Active Protocol: Document 09/08/22 12:30 SAK (Rec: 09/08/22 14:22 [facility] [id number]) Manual Assessments Soft Tissue Assessment Soft Tissue Mobility Assessment fibrosis with mottled coloring left forearm PT-OP-G Mobility & Gait Start: 09/07/22 12:05 Freq: Status: Active Protocol: Document 09/08/22 12:30 SAK (Rec: 09/08/22 14:22 [facility] [id number]) OP Mobility Evaluation Functional Movements Lifting and Carrying decreased ability PT-OP-H Neuro Start: 09/07/22 12:05 Freq: Status: Active Protocol: Document 09/08/22 12:30 SAK (Rec: 09/08/22 14:22 SAK [id number]) Sensation Evaluation Gross Sensation Gross Sensation Left UE Impaired PT-OP-J Posture/Palpation/Skin Start: 09/07/22 12:05 Freq: Status: Active Protocol: Document 09/08/22 12:30 SAK (Rec: 09/08/22 14:22 [facility] [id number]) Palpation Assessment Location left UE Palpation Findings Edema,Soft Tissue Tightness Palpation Details fibrosis Skin Assessment Edema Assessment left UE Edema Degree 4+ Edema Appearance Discolored,Firm,Taut Subjective Edema Description Tightness Comments fibrosis left forearm PT-OP-K Range of Motion Start: 09/07/22 12:05 Freq: Status: Active Protocol: Document 09/08/22 12:30 SAK (Rec: 09/08/22 14:22 [facility] [id number]) Shoulder Goniometric Range of Motion Shoulder Left Active Shoulder ROM WFL No Flexion 105 Extension 10 Abduction 100 Horizontal Abduction 75 Horizontal Adduction 35 External Rotation at 0 degrees Abduction 45 Internal Rotation Behind Back (text) L4 Right Active Shoulder ROM WFL Yes Shoulder ROM Limitations Shoulder ROM Limitations Soft Tissue Tightness,Muscle Weakness,Swelling Elbow/Forearm Range of Motion Elbow/Forearm Left Active Elbow/Forearm ROM WFL No Elbow Flexion (degrees) 125 Elbow Extension (degrees) 10 Pronation (degrees) 80 Supination (degrees) 35 Right Active Elbow/Forearm ROM WFL Yes Elbow/Forearm ROM Limitations Elbow/Forearm ROM Limitations Soft Tissue Tightness,Muscle Weakness,Swelling Wrist Goniometric Range of Motion Wrist Left Flexion Active (degrees) 5 Flexion Passive (degrees) 10 Extension Active (degrees) 5 Extension Passive (degrees) 10 Right Wrist ROM WFL Yes Finger Goniometric Range of Motion Finger left Finger ROM WFL No right Finger ROM WFL Yes Finger ROM Limitations Finger ROM Limitations Swelling Comments unable to achieve 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 corporate strategy associate due to swelling PT-OP-N Lymphedema Start: 09/07/22 12:05 Freq: Status: Active Protocol: Document 10/16/22 10:32 SAK (Rec: 10/16/22 10:34 [facility]AK [id number]) Lymphedema Measurements Upper Extremity Circumference Measurements Left Affected MCP 26 cm PT-OP-Q Treatments Start: 09/07/22 12:05 Freq: Status: Active Protocol: Document 10/16/22 10:32 SAK (Rec: 10/16/22 10:33 [facility] [id number]) Therapeutic Exercises Supine Exercises sequential lymphedema exercises Supine Exercise Name AAROM all joints and planes Side left Reps/Minutes 5-10 reps ea Comments PT physical guidance Standing Exercises AROM UE's Standing Exercise Name standing in corner, chair in front Side bilateral Reps/Minutes AROM all joints, corner and chair for balance safety Self-Care/Home Management Treatment Education Other Education importance of increased activity and exercise, deep breathing Lymphedema Treatment Lymphedema Wrapping Body Location left UE Materials Tricofix size F,black foam on forearm wrist to elbow, Artiflex (3 rolls), Comprilan 6,8,10x2 Other PT applied x 1, patient applied x 1 with guidance from PT. Also discussed potentially during day applying compression sleeve over Artiflex at wrist, bandage hand and wrist. After instruction demonstrated improved understanding Sequential Lymphedema Exercises Comments see ex section of chart. Compression Garment Assessment Compression Garment Assessment Details Tourniquet effect persisted. Discussed all in one gauntlet and sleeve, compression alternatives, night compression alternatives. Patient and to discuss options and costs which may be prohibitive. Patient to bandage patient nightly at this time. Patient Education Compression Garments currently continues to have tourniquet effect at wrist. Sequential Lymphedema Exercises importance of ex while wearing compression PT-OP-R Modalities Start: 09/07/22 12:05 Freq: Status: Active Protocol: Document 10/16/22 10:32 SAK (Rec: 10/16/22 10:33 [facility] [id number]) Compression Pump Treatment Treatment Location Left Arm Pressure Amount (mmHg) (mmHG) 35 Inflation Time (Seconds) 30 Deflation Time (Seconds) 10 Treatment Duration (minutes) 30 Treatment Tolerance Good PT-OP-T Assessment and Plan Start: 09/07/22 12:05 Freq: Status: Active Protocol: Document 10/16/22 10:32 SAK (Rec: 10/16/22 10:33 [facility] [id number]) Physical Therapy Assessment Impairments Impairments Edema,Integument,ROM Goals Three Impairment decreased left UE ROM Impairment left shoulder elevation limited to 110 degrees Short Term Goal (STG) Patient to be independent with progressive HEP for right shoulder ROM 10/13/22: pt. independent, fair compliance STG Duration 10/09/22 Correction Goal (LTG) Patient able to lift arm overhead to at least 150 degrees to allow him to regain full functional use of his right UE and improve soft tissue mobility for lymphatic flow LTG Duration 12/09/22 Two Impairment lymphedema life impact scale 31% International Relations Professor Goal (LTG) decrease lymphedema life impact scale score by at least 50% as measure of improved self-management and function 10/13/22: goal progress LTG Duration 12/09/22 One Impairment lymphedema left UE Short Term Goal (STG) Patient to be instructed in all aspects of lymphedema care to include skin care, MLD, compression, and lymphedema ex . Decrease lymphedema to stable level (no increase or decrease greater 1 cm over the course of 1 week) 10/13/22: has been difficult to stabilize measurements, due to 's work schedule difficulty in getting patient bandaged or now compression sleeve/gauntlet applied timely STG Duration 10/09/22 Correction Goal (LTG) Patient to be independent with all aspects of lymphedema care with assistance of his , and obtain appropriate compression garments for lymphedema management when maximal circumferential measurements achieved. LTG Duration 12/09/22 Assessment Summary Assessment Compression garments continue to be a challenge with fit for patient. present for PT session and we discussed options, patient and to discuss. I feel compression alternative garment during day and either bandaging or Tribute night garment would be most effective for this patient, but are quite costly. Patient and to discuss and consider. Paperwork for sequential pneumatic pump has been completed and submitted by PT 2 days ago. Patient compliance to HEP limited, has difficutly with motivating himself to do more than sit in chair during the day. Physical Therapy Plan Frequency and Duration Frequency of Treatment 20 visits Duration of treatment (weeks) 12 Plan of Care Start Date 09/08/22 Plan of Care End Date 12/09/22 Therapeutic Interventions Therapeutic Interventions Lymphedema Management,Manual Therapy,Patient/Caregiver Education,Self-Care/Home Management,Soft Tissue Mobilization,Taping, Therapeutic Exercises Modalities Vasopneumatic Devices Next Visit Focus/Plan Next Note Type Treatment Note Next Visit Plan Continue lymphedema management , instruct in use of pump when arrives, further discussion of compression garments and patient preference. Continue to encourage increased patient participation and activity.
--- NOTE | 2022-10-21 10:14 | PT.OTN ---
Current Diagnoses Lymphedema, not elsewhere classified (10/21/22) Soft tissue disorder, unspecified (10/21/22) Other malaise (10/21/22) Physical Therapy Treatment Note PT-OP-A Visit Information Start: 09/07/22 12:05 Freq: Status: Active Protocol: Document 10/21/22 08:43 SAK (Rec: 10/21/22 09:50 [facility] [id number]) Out-Patient Physical Therapy Visit Information Visit Information Visit Type Treatment Note Visit Start Time 08:50 Visit Stop Time 10:15 Total Visit Minutes 85 Visit Number 9 Precautions Precautions cardiac history, history CVA with left sided weakness, lymphoma (chronic chemo) PT-OP-B Current Condition Start: 09/07/22 12:05 Freq: Status: Active Protocol: Document 10/21/22 08:43 SAK (Rec: 10/21/22 09:50 [facility] [id number]) Current Condition History of Current Condition Onset Date few months Current Complaints left arm lymphedema History of Current Condition Lymphedema started 9 months ago, unknown reason. CVA with left hemiparesis 2018. Undergoing chronic treatment for lymphoma. Has pacemaker. Worsening of swelling left UE started several months ago, saw massage therapist, no bandaging. Saw Gifty Ellison PT at this clinic, was sent to get compression sleeve and gauntlet at [facility]. States if he wears gauntlet with sleeve gets indentation at wrist. Currently 5 out of 7 days wears sleeve only, not gauntlet. Treatment Goals Patient/Caregiver Goals Decrease left UE edema and obtain appropriate compression garment. PT-OP-C Subjective Start: 09/07/22 12:05 Freq: Status: Active Protocol: Document 10/21/22 08:43 SAK (Rec: 10/21/22 09:50 [facility] [id number]) OP-PT Subjective Patient Comments Patient Comments Trying to modify compression garment with using plastic piece to bridge wrist and foam on hand. Hasn't been bandaged since last seen, states he has been using arm more. Hasn't ordered any new garment yet; thinking about it . PT-OP-F Manual Assessment Start: 09/07/22 12:05 Freq: Status: Active Protocol: Document 09/08/22 12:30 SAK (Rec: 09/08/22 14:22 SAK [id number]) Manual Assessments Soft Tissue Assessment Soft Tissue Mobility Assessment fibrosis with mottled coloring left forearm PT-OP-G Mobility & Gait Start: 09/07/22 12:05 Freq: Status: Active Protocol: Document 09/08/22 12:30 [facility] (Rec: 09/08/22 14:22 [facility] [id number]) OP Mobility Evaluation Functional Movements Lifting and Carrying decreased ability PT-OP-H Neuro Start: 09/07/22 12:05 Freq: Status: Active Protocol: Document 09/08/22 12:30 [facility] (Rec: 09/08/22 14:22 [facility] [id number]) Sensation Evaluation Gross Sensation Gross Sensation Left UE Impaired PT-OP-J Posture/Palpation/Skin Start: 09/07/22 12:05 Freq: Status: Active Protocol: Document 09/08/22 12:30 [facility] (Rec: 09/08/22 14:22 [facility] [id number]) Palpation Assessment Location left UE Palpation Findings Edema,Soft Tissue Tightness Palpation Details fibrosis Skin Assessment Edema Assessment left UE Edema Degree 4+ Edema Appearance Discolored,Firm,Taut Subjective Edema Description Tightness Comments fibrosis left forearm PT-OP-K Range of Motion Start: 09/07/22 12:05 Freq: Status: Active Protocol: Document 09/08/22 12:30 [facility] (Rec: 09/08/22 14:22 [facility] [id number]) Shoulder Goniometric Range of Motion Shoulder Left Active Shoulder ROM WFL No Flexion 105 Extension 10 Abduction 100 Horizontal Abduction 75 Horizontal Adduction 35 External Rotation at 0 degrees Abduction 45 Internal Rotation Behind Back (text) L4 Right Active Shoulder ROM WFL Yes Shoulder ROM Limitations Shoulder ROM Limitations Soft Tissue Tightness,Muscle Weakness,Swelling Elbow/Forearm Range of Motion Elbow/Forearm Left Active Elbow/Forearm ROM WFL No Elbow Flexion (degrees) 125 Elbow Extension (degrees) 10 Pronation (degrees) 80 Supination (degrees) 35 Right Active Elbow/Forearm ROM WFL Yes Elbow/Forearm ROM Limitations Elbow/Forearm ROM Limitations Soft Tissue Tightness,Muscle Weakness,Swelling Wrist Goniometric Range of Motion Wrist Left Flexion Active (degrees) 5 Flexion Passive (degrees) 10 Extension Active (degrees) 5 Extension Passive (degrees) 10 Right Wrist ROM WFL Yes Finger Goniometric Range of Motion Finger left Finger ROM WFL No right Finger ROM WFL Yes Finger ROM Limitations Finger ROM Limitations Swelling Comments 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 PT-OP-N Lymphedema Start: 09/07/22 12:05 Freq: Status: Active Protocol: Document 10/21/22 08:43 [facility] (Rec: 10/21/22 09:50 [facility] [id number]) Lymphedema Measurements Upper Extremity Circumference Measurements Left Affected MCP 25.3 cm Dorsum of Hand 28 cm Wrist 26.2 cm 5 cm From Wrist Crease 30 cm 10 cm From Wrist Crease 31.2 cm 15 cm From Wrist Crease 35.8 cm 20 cm From Wrist Crease 43 cm 25 cm From Wrist Crease 46 cm 30 cm From Wrist Crease 45.8 cm 35 cm From Wrist Crease 45.6 cm 40 cm From Wrist Crease 47 cm 45 cm From Wrist Crease 49 cm Elbow Joint 45.9 cm PT-OP-Q Treatments Start: 09/07/22 12:05 Freq: Status: Active Protocol: Document 10/21/22 08:43 [facility] (Rec: 10/21/22 09:50 [facility] [id number]) Lymphedema Treatment Manual Lymphatic Drainage Location LUE Duration 30 min Comments Prepped AIA and AAA pathways before pump and continued intermittent pathway clearance during pump treatment Lymphedema Wrapping Body Location left UE Materials Tricofix size F,black foam on forearm wrist to elbow, Artiflex (3 rolls), Comprilan 6,8,10x2 Other PT applied x 1, patient applied x 1 with guidance from PT. Also discussed potentially during day applying compression sleeve over Artiflex at wrist, bandage hand and wrist. After instruction demonstrated improved understanding Sequential Lymphedema Exercises Comments see ex section of chart. Compression Garment Assessment Compression Garment Assessment Details Tourniquet effect dec with use of plastic insert by patient but not jail solution and patient urged to try increased size foam as PT did today, concern over rough edges of plastic cutting into patient skin Patient Education Compression Garments Patient given information about alternative compression last session Sequential Lymphedema Exercises importance of ex while wearing compression PT-OP-R Modalities Start: 09/07/22 12:05 Freq: Status: Active Protocol: Document 10/21/22 08:43 [facility]AK (Rec: 10/21/22 10:13 [facility] [id number]) Compression Pump Treatment Treatment Location Left Arm Pressure Amount (mmHg) (mmHG) 35 Inflation Time (Seconds) 30 Deflation Time (Seconds) 10 Treatment Duration (minutes) 30 Treatment Tolerance Good PT-OP-T Assessment and Plan Start: 09/07/22 12:05 Freq: Status: Active Protocol: Document 10/21/22 08:43 [facility] (Rec: 10/21/22 09:50 [facility] [id number]) Physical Therapy Assessment Impairments Impairments Edema,Integument,ROM Goals Three Impairment decreased left UE ROM Impairment left shoulder elevation limited to 110 degrees Short Term Goal (STG) Patient to be independent with progressive HEP for right shoulder ROM 10/13/22: pt. independent, fair compliance STG Duration 10/09/22 Punch Press Operator Helper Goal (LTG) Patient able to lift arm overhead to at least 150 degrees to allow him to regain full functional use of his right UE and improve soft tissue mobility for lymphatic flow LTG Duration 12/09/22 Two Impairment lymphedema life impact scale 31% Senior Living Goal (LTG) decrease lymphedema life impact scale score by at least 50% as measure of improved self-management and function 10/13/22: goal progress LTG Duration 12/09/22 One Impairment lymphedema left UE Short Term Goal (STG) Patient to be instructed in all aspects of lymphedema care to include skin care, MLD, compression, and lymphedema ex . Decrease lymphedema to stable level (no increase or decrease greater 1 cm over the course of 1 week) 10/13/22: has been difficult to stabilize measurements, due to 's work schedule difficulty in getting patient bandaged or now compression sleeve/gauntlet applied timely STG Duration 10/09/22 Punch Press Operator Helper Goal (LTG) Patient to be independent with all aspects of lymphedema care with assistance of his , and obtain appropriate compression garments for lymphedema management when maximal circumferential measurements achieved. LTG Duration 12/09/22 Assessment Summary Assessment Patient previously given information about compression alternatives, has not ordered anything yet. Has used piece of rigid plastic to try to bridge wrist to prevent tourniquet effect; PT used larger foam piece today and urged pt consider other compression options as discussed. Physical Therapy Plan Frequency and Duration Frequency of Treatment 20 visits Duration of treatment (weeks) 12 Plan of Care Start Date 09/08/22 Plan of Care End Date 12/09/22 Therapeutic Interventions Therapeutic Interventions Lymphedema Management,Manual Therapy,Patient/Caregiver Education,Self-Care/Home Management,Soft Tissue Mobilization,Taping, Therapeutic Exercises Modalities Vasopneumatic Devices Next Visit Focus/Plan Next Note Type Treatment Note Next Visit Plan Continue lymphedema management , instruct in use of pump when arrives, further discussion of compression garments and patient preference. Continue to encourage increased patient participation and activity.
--- NOTE | 2022-10-23 14:45 | PT.OTN ---
Current Diagnoses Lymphedema, not elsewhere classified (10/23/22) Soft tissue disorder, unspecified (10/23/22) Other malaise (10/23/22) Physical Therapy Treatment Note PT-OP-A Visit Information Start: 09/07/22 12:05 Freq: Status: Active Protocol: Document 10/23/22 08:48 SAK (Rec: 10/23/22 10:32 [facility] [id number]) Out-Patient Physical Therapy Visit Information Visit Information Visit Type Treatment Note Visit Start Time 08:50 Visit Stop Time 10:15 Total Visit Minutes 85 Visit Number 10 Precautions Precautions cardiac history, history CVA with left sided weakness, lymphoma (chronic chemo) PT-OP-B Current Condition Start: 09/07/22 12:05 Freq: Status: Active Protocol: Document 10/23/22 08:48 SAK (Rec: 10/23/22 10:32 [facility] [id number]) Current Condition History of Current Condition Onset Date few months Current Complaints left arm lymphedema History of Current Condition Lymphedema started 9 months ago, unknown reason. CVA with left hemiparesis 2018. Undergoing chronic treatment for lymphoma. Has pacemaker. Worsening of swelling left UE started several months ago, saw massage therapist, no bandaging. Saw Gifty Ellison PT at this clinic, was sent to get compression sleeve and gauntlet at [facility]. States if he wears gauntlet with sleeve gets indentation at wrist. Currently 5 out of 7 days wears sleeve only, not gauntlet. Treatment Goals Patient/Caregiver Goals Decrease left UE edema and obtain appropriate compression garment. PT-OP-C Subjective Start: 09/07/22 12:05 Freq: Status: Active Protocol: Document 10/23/22 08:48 SAK (Rec: 10/23/22 10:32 [facility] [id number]) OP-PT Subjective Patient Comments Patient Comments Bandaging mostly stayed intact , some dec edema. bandaged him last night. Did more exercises since last seen . Patient Reported Progress Improving PT-OP-F Manual Assessment Start: 09/07/22 12:05 Freq: Status: Active Protocol: Document 09/08/22 12:30 SAK (Rec: 09/08/22 14:22 SAK [id number]) Manual Assessments Soft Tissue Assessment Soft Tissue Mobility Assessment fibrosis with mottled coloring left forearm PT-OP-G Mobility & Gait Start: 09/07/22 12:05 Freq: Status: Active Protocol: Document 09/08/22 12:30 SAK (Rec: 09/08/22 14:22 [facility] [id number]) OP Mobility Evaluation Functional Movements Lifting and Carrying decreased ability PT-OP-H Neuro Start: 09/07/22 12:05 Freq: Status: Active Protocol: Document 09/08/22 12:30 SAK (Rec: 09/08/22 14:22 SAK [id number]) Sensation Evaluation Gross Sensation Gross Sensation Left UE Impaired PT-OP-J Posture/Palpation/Skin Start: 09/07/22 12:05 Freq: Status: Active Protocol: Document 09/08/22 12:30 SAK (Rec: 09/08/22 14:22 [facility] [id number]) Palpation Assessment Location left UE Palpation Findings Edema,Soft Tissue Tightness Palpation Details fibrosis Skin Assessment Edema Assessment left UE Edema Degree 4+ Edema Appearance Discolored,Firm,Taut Subjective Edema Description Tightness Comments fibrosis left forearm PT-OP-K Range of Motion Start: 09/07/22 12:05 Freq: Status: Active Protocol: Document 09/08/22 12:30 SAK (Rec: 09/08/22 14:22 [facility] [id number]) Shoulder Goniometric Range of Motion Shoulder Left Active Shoulder ROM WFL No Flexion 105 Extension 10 Abduction 100 Horizontal Abduction 75 Horizontal Adduction 35 External Rotation at 0 degrees Abduction 45 Internal Rotation Behind Back (text) L4 Right Active Shoulder ROM WFL Yes Shoulder ROM Limitations Shoulder ROM Limitations Soft Tissue Tightness,Muscle Weakness,Swelling Elbow/Forearm Range of Motion Elbow/Forearm Left Active Elbow/Forearm ROM WFL No Elbow Flexion (degrees) 125 Elbow Extension (degrees) 10 Pronation (degrees) 80 Supination (degrees) 35 Right Active Elbow/Forearm ROM WFL Yes Elbow/Forearm ROM Limitations Elbow/Forearm ROM Limitations Soft Tissue Tightness,Muscle Weakness,Swelling Wrist Goniometric Range of Motion Wrist Left Flexion Active (degrees) 5 Flexion Passive (degrees) 10 Extension Active (degrees) 5 Extension Passive (degrees) 10 Right Wrist ROM WFL Yes Finger Goniometric Range of Motion Finger left Finger ROM WFL No right Finger ROM WFL Yes Finger ROM Limitations Finger ROM Limitations Swelling Comments unable to achieve full recreation aide due to swelling PT-OP-N Lymphedema Start: 09/07/22 12:05 Freq: Status: Active Protocol: Document 10/23/22 08:48 [facility] (Rec: 10/23/22 10:32 [facility] [id number]) Lymphedema Measurements Upper Extremity Circumference Measurements Left Affected MCP 24.8 cm Dorsum of Hand 26.4 cm Wrist 26.2 cm 5 cm From Wrist Crease 28.6 cm 10 cm From Wrist Crease 31 cm 15 cm From Wrist Crease 36.2 cm 20 cm From Wrist Crease 41.5 cm 25 cm From Wrist Crease 42.9 cm 30 cm From Wrist Crease 43.8 cm 35 cm From Wrist Crease 44.9 cm 40 cm From Wrist Crease 46.4 cm 45 cm From Wrist Crease 49 cm Elbow Joint 44.4 cm PT-OP-Q Treatments Start: 09/07/22 12:05 Freq: Status: Active Protocol: Document 10/23/22 08:48 [facility] (Rec: 10/23/22 10:32 [facility] [id number]) Therapeutic Exercises Supine Exercises sequential lymphedema exercises Supine Exercise Name AAROM all joints and planes Side left Reps/Minutes 5-10 reps ea Comments PT physical guidance Sidelying Exercises open book Reps/Minutes 5x ángel Lymphedema Treatment Manual Lymphatic Drainage Location LUE Duration 30 min Comments Prepped AIA and AAA pathways before pump and continued intermittent pathway clearance during pump treatment Lymphedema Wrapping Body Location left UE Materials Tricofix size F,black foam on forearm wrist to elbow, Artiflex (3 rolls), Comprilan 6,8,10x2 Sequential Lymphedema Exercises Comments see ex section of chart. Compression Garment Assessment Compression Garment Assessment Details Tourniquet effect dec with use of plastic insert by patient but not chcf solution and patient urged to try increased size foam as PT did today, concern over rough edges of plastic cutting into patient skin Patient Education Sequential Lymphedema Exercises importance of ex while wearing compression Other Other soft tissue mobilization of areas of tissue fibrosis in hand and forearm. PT-OP-R Modalities Start: 09/07/22 12:05 Freq: Status: Active Protocol: Document 10/23/22 08:48 [facility] (Rec: 10/23/22 14:44 [facility] [id number]) Compression Pump Treatment Treatment Location Left Arm Pressure Amount (mmHg) (mmHG) 35 Inflation Time (Seconds) 30 Deflation Time (Seconds) 10 Treatment Duration (minutes) 30 Treatment Tolerance Good Treatment Comments With black foam at dorsal hand /wrist. Slight reduction (0.5 cm) at dorsum and wrist post- pump. PT-OP-T Assessment and Plan Start: 09/07/22 12:05 Freq: Status: Active Protocol: Document 10/23/22 08:48 [facility] (Rec: 10/23/22 10:32 [facility] [id number]) Physical Therapy Assessment Impairments Impairments Edema,Integument,ROM Goals Three Impairment decreased left UE ROM Impairment left shoulder elevation limited to 110 degrees Short Term Goal (STG) Patient to be independent with progressive HEP for right shoulder ROM 10/13/22: pt. independent, fair compliance STG Duration 10/09/22 Halfway Goal (LTG) Patient able to lift arm overhead to at least 150 degrees to allow him to regain full functional use of his right UE and improve soft tissue mobility for lymphatic flow LTG Duration 12/09/22 Two Impairment lymphedema life impact scale 31% Perfect Binder Setter Goal (LTG) decrease lymphedema life impact scale score by at least 50% as measure of improved self-management and function 10/13/22: goal progress LTG Duration 12/09/22 One Impairment lymphedema left UE Short Term Goal (STG) Patient to be instructed in all aspects of lymphedema care to include skin care, MLD, compression, and lymphedema ex . Decrease lymphedema to stable level (no increase or decrease greater 1 cm over the course of 1 week) 10/13/22: has been difficult to stabilize measurements, due to 's work schedule difficulty in getting patient bandaged or now compression sleeve/gauntlet applied timely STG Duration 10/09/22 Halfway Goal (LTG) Patient to be independent with all aspects of lymphedema care with assistance of his , and obtain appropriate compression garments for lymphedema management when maximal circumferential measurements achieved. LTG Duration 12/09/22 Progress Towards Goals Progress Towards Goals Progressing Toward Goals Assessment Summary Assessment Pt came in wearing bandaging applied last night with fair compression, measurements stable or decreased mostly. Putting black foam into hand helpful bridging wrist. Patient has not yet ordered new glove. Improved compliance to HEP Physical Therapy Plan Frequency and Duration Frequency of Treatment 20 visits Duration of treatment (weeks) 12 Plan of Care Start Date 09/08/22 Plan of Care End Date 12/09/22 Therapeutic Interventions Therapeutic Interventions Lymphedema Management,Manual Therapy,Patient/Caregiver Education,Self-Care/Home Management,Soft Tissue Mobilization,Taping, Therapeutic Exercises Modalities Vasopneumatic Devices Next Visit Focus/Plan Next Note Type Treatment Note Next Visit Plan Continue lymphedema management , instruct in use of pump when arrives, further discussion of compression garments and patient preference. Continue to encourage increased patient participation and activity.
--- NOTE | 2022-10-27 14:05 | PT.OTN ---
Current Diagnoses Lymphedema, not elsewhere classified (10/27/22) Soft tissue disorder, unspecified (10/27/22) Other malaise (10/27/22) Physical Therapy Treatment Note PT-OP-A Visit Information Start: 09/07/22 12:05 Freq: Status: Active Protocol: Document 10/27/22 12:32 SAK (Rec: 10/27/22 14:05 [facility] [id number]) Out-Patient Physical Therapy Visit Information Visit Information Visit Type Treatment Note Visit Start Time 12:32 Total Visit Minutes 90 Visit Number 11 Precautions Precautions cardiac history, history CVA with left sided weakness, lymphoma (chronic chemo) PT-OP-B Current Condition Start: 09/07/22 12:05 Freq: Status: Active Protocol: Document 10/27/22 12:32 [facility] (Rec: 10/27/22 14:05 [facility] [id number]) Current Condition History of Current Condition Onset Date few months Current Complaints left arm lymphedema History of Current Condition Lymphedema started 9 months ago, unknown reason. CVA with left hemiparesis 2018. Undergoing chronic treatment for lymphoma. Has pacemaker. Worsening of swelling left UE started several months ago, saw massage therapist, no bandaging. Saw Gifty Ellison PT at this clinic, was sent to get compression sleeve and gauntlet at [facility]. States if he wears gauntlet with sleeve gets indentation at wrist. Currently 5 out of 7 days wears sleeve only, not gauntlet. PT-OP-C Subjective Start: 09/07/22 12:05 Freq: Status: Active Protocol: Document 10/27/22 12:32 [facility] (Rec: 10/27/22 14:05 [facility] [id number]) OP-PT Subjective Patient Comments Patient Comments Still struggling with his compression especially at the wrist, has ordered a longer gauntlet with full fingers. REmoved bandaging this am. PT-OP-F Manual Assessment Start: 09/07/22 12:05 Freq: Status: Active Protocol: Document 09/08/22 12:30 SAK (Rec: 09/08/22 14:22 SAK [id number]) Manual Assessments Soft Tissue Assessment Soft Tissue Mobility Assessment fibrosis with mottled coloring left forearm PT-OP-G Mobility & Gait Start: 09/07/22 12:05 Freq: Status: Active Protocol: Document 09/08/22 12:30 [facility] (Rec: 09/08/22 14:22 [facility] [id number]) OP Mobility Evaluation Functional Movements Lifting and Carrying decreased ability PT-OP-H Neuro Start: 09/07/22 12:05 Freq: Status: Active Protocol: Document 09/08/22 12:30 [facility] (Rec: 09/08/22 14:22 [facility] [id number]) Sensation Evaluation Gross Sensation Gross Sensation Left UE Impaired PT-OP-J Posture/Palpation/Skin Start: 09/07/22 12:05 Freq: Status: Active Protocol: Document 09/08/22 12:30 [facility] (Rec: 09/08/22 14:22 [facility] [id number]) Palpation Assessment Location left UE Palpation Findings Edema,Soft Tissue Tightness Palpation Details fibrosis Skin Assessment Edema Assessment left UE Edema Degree 4+ Edema Appearance Discolored,Firm,Taut Subjective Edema Description Tightness Comments fibrosis left forearm PT-OP-K Range of Motion Start: 09/07/22 12:05 Freq: Status: Active Protocol: Document 09/08/22 12:30 [facility] (Rec: 09/08/22 14:22 [facility] [id number]) Shoulder Goniometric Range of Motion Shoulder Left Active Shoulder ROM WFL No Flexion 105 Extension 10 Abduction 100 Horizontal Abduction 75 Horizontal Adduction 35 External Rotation at 0 degrees Abduction 45 Internal Rotation Behind Back (text) L4 Right Active Shoulder ROM WFL Yes Shoulder ROM Limitations Shoulder ROM Limitations Soft Tissue Tightness,Muscle Weakness,Swelling Elbow/Forearm Range of Motion Elbow/Forearm Left Active Elbow/Forearm ROM WFL No Elbow Flexion (degrees) 125 Elbow Extension (degrees) 10 Pronation (degrees) 80 Supination (degrees) 35 Right Active Elbow/Forearm ROM WFL Yes Elbow/Forearm ROM Limitations Elbow/Forearm ROM Limitations Soft Tissue Tightness,Muscle Weakness,Swelling Wrist Goniometric Range of Motion Wrist Left Flexion Active (degrees) 5 Flexion Passive (degrees) 10 Extension Active (degrees) 5 Extension Passive (degrees) 10 Right Wrist ROM WFL Yes Finger Goniometric Range of Motion Finger left Finger ROM WFL No right Finger ROM WFL Yes Finger ROM Limitations Finger ROM Limitations Swelling Comments 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 PT-OP-Q Treatments Start: 09/07/22 12:05 Freq: Status: Active Protocol: Document 10/27/22 12:32 [facility] (Rec: 10/27/22 14:05 [facility] [id number]) Therapeutic Exercises Supine Exercises sequential lymphedema exercises Supine Exercise Name AAROM all joints and planes Side left Reps/Minutes 5-10 reps ea Comments PT physical guidance Sidelying Exercises open book Reps/Minutes 5x ángel Lymphedema Treatment Manual Lymphatic Drainage Location LUE Duration 30 min Comments Prepped AIA and AAA pathways before pump and continued intermittent pathway clearance during pump treatment Lymphedema Wrapping Body Location left UE Materials Tricofix size F,channel foam on forearm wrist to elbow, Artiflex (3 rolls), Comprilan 6,8x2,10x2 Sequential Lymphedema Exercises Comments see ex section of chart. Compression Garment Assessment Compression Garment Assessment Details Patient has ordered full gauntlet with fingers and longer part on forearm. Discussed stretching wrist part of current compression sleeve Patient Education Compression Garments reviewed compression, consider night garment Tribute and/or Capresia Sequential Lymphedema Exercises importance of ex while wearing compression Other Other soft tissue mobilization of areas of tissue fibrosis in hand and forearm. PT-OP-R Modalities Start: 09/07/22 12:05 Freq: Status: Active Protocol: Document 10/27/22 12:32 [facility] (Rec: 10/27/22 14:05 [facility] [id number]) Compression Pump Treatment Treatment Location Left Arm Pressure Amount (mmHg) (mmHG) 35 Inflation Time (Seconds) 30 Deflation Time (Seconds) 10 Treatment Duration (minutes) 30 Treatment Tolerance Good Treatment Comments white channel foam hand,wrist, forearm PT-OP-T Assessment and Plan Start: 09/07/22 12:05 Freq: Status: Active Protocol: Document 10/27/22 12:32 [facility] (Rec: 10/27/22 14:05 [facility] [id number]) Physical Therapy Assessment Impairments Impairments Edema,Integument,ROM Goals Three Impairment decreased left UE ROM Impairment left shoulder elevation limited to 110 degrees Short Term Goal (STG) Patient to be independent with progressive HEP for right shoulder ROM 10/13/22: pt. independent, fair compliance STG Duration 10/09/22 Rubber Compounder Supervisor Goal (LTG) Patient able to lift arm overhead to at least 150 degrees to allow him to regain full functional use of his right UE and improve soft tissue mobility for lymphatic flow LTG Duration 12/09/22 Two Impairment lymphedema life impact scale 31% Retirement Goal (LTG) decrease lymphedema life impact scale score by at least 50% as measure of improved self-management and function 10/13/22: goal progress LTG Duration 12/09/22 One Impairment lymphedema left UE Short Term Goal (STG) Patient to be instructed in all aspects of lymphedema care to include skin care, MLD, compression, and lymphedema ex . Decrease lymphedema to stable level (no increase or decrease greater 1 cm over the course of 1 week) 10/13/22: has been difficult to stabilize measurements, due to 's work schedule difficulty in getting patient bandaged or now compression sleeve/gauntlet applied timely STG Duration 10/09/22 Rubber Compounder Supervisor Goal (LTG) Patient to be independent with all aspects of lymphedema care with assistance of his , and obtain appropriate compression garments for lymphedema management when maximal circumferential measurements achieved. LTG Duration 12/09/22 Assessment Summary Assessment Better reduction of right UE with use of channel foam with pump, used with bandaging today also. Encouraged onsider night garment or Capresia for improved ease of bandaging. Physical Therapy Plan Frequency and Duration Frequency of Treatment 20 visits Duration of treatment (weeks) 12 Plan of Care Start Date 09/08/22 Plan of Care End Date 12/09/22 Therapeutic Interventions Therapeutic Interventions Lymphedema Management,Manual Therapy,Patient/Caregiver Education,Self-Care/Home Management,Soft Tissue Mobilization,Taping, Therapeutic Exercises Modalities Vasopneumatic Devices Next Visit Focus/Plan Next Note Type Treatment Note Next Visit Plan Circumferential measurements, assess response to channel foam. Insruct in use of home pump if delievered, continue to problem solve compression needs, cost is limiting factor
--- NOTE | 2022-10-29 15:24 | PT.OTN ---
Current Diagnoses Lymphedema, not elsewhere classified (10/29/22) Soft tissue disorder, unspecified (10/29/22) Other malaise (10/29/22) Physical Therapy Treatment Note PT-OP-A Visit Information Start: 09/07/22 12:05 Freq: Status: Active Protocol: Document 10/29/22 13:22 [facility] (Rec: 10/29/22 15:24 [facility] [id number]) Out-Patient Physical Therapy Visit Information Visit Information Visit Type Treatment Note Visit Start Time 13:15 Total Visit Minutes 90 Visit Number 12 Precautions Precautions cardiac history, history CVA with left sided weakness, lymphoma (chronic chemo) PT-OP-B Current Condition Start: 09/07/22 12:05 Freq: Status: Active Protocol: Document 10/29/22 13:22 [facility] (Rec: 10/29/22 15:24 [facility] [id number]) Current Condition History of Current Condition Onset Date few months Current Complaints left arm lymphedema History of Current Condition Lymphedema started 9 months ago, unknown reason. CVA with left hemiparesis 2018. Undergoing chronic treatment for lymphoma. Has pacemaker. Worsening of swelling left UE started several months ago, saw massage therapist, no bandaging. Saw Gifty Ellison PT at this clinic, was sent to get compression sleeve and gauntlet at [facility]. States if he wears gauntlet with sleeve gets indentation at wrist. Currently 5 out of 7 days wears sleeve only, not gauntlet. Treatment Goals Patient/Caregiver Goals Decrease left UE edema and obtain appropriate compression garment. PT-OP-C Subjective Start: 09/07/22 12:05 Freq: Status: Active Protocol: Document 10/29/22 13:22 [facility] (Rec: 10/29/22 15:24 [facility] [id number]) OP-PT Subjective Patient Comments Patient Comments Reports less swelling after taking compression bandaging off last time with white foam. Got a pair of copperfit gloves, fits better though he states he knows it may not be enough compression, though at least he can get it on, agreeable to try layering both gloves on the right for increased hand and finger compression. Didn't wear any compression this am while he was painting. PT-OP-F Manual Assessment Start: 09/07/22 12:05 Freq: Status: Active Protocol: Document 09/08/22 12:30 [facility] (Rec: 09/08/22 14:22 [facility] [id number]) Manual Assessments Soft Tissue Assessment Soft Tissue Mobility Assessment fibrosis with mottled coloring left forearm PT-OP-G Mobility & Gait Start: 09/07/22 12:05 Freq: Status: Active Protocol: Document 09/08/22 12:30 [facility] (Rec: 09/08/22 14:22 [facility] [id number]) OP Mobility Evaluation Functional Movements Lifting and Carrying decreased ability PT-OP-H Neuro Start: 09/07/22 12:05 Freq: Status: Active Protocol: Document 09/08/22 12:30 [facility] (Rec: 09/08/22 14:22 [facility] [id number]) Sensation Evaluation Gross Sensation Gross Sensation Left UE Impaired PT-OP-J Posture/Palpation/Skin Start: 09/07/22 12:05 Freq: Status: Active Protocol: Document 09/08/22 12:30 [facility] (Rec: 09/08/22 14:22 [facility] [id number]) Palpation Assessment Location left UE Palpation Findings Edema,Soft Tissue Tightness Palpation Details fibrosis Skin Assessment Edema Assessment left UE Edema Degree 4+ Edema Appearance Discolored,Firm,Taut Subjective Edema Description Tightness Comments fibrosis left forearm PT-OP-K Range of Motion Start: 09/07/22 12:05 Freq: Status: Active Protocol: Document 09/08/22 12:30 [facility] (Rec: 09/08/22 14:22 [facility] [id number]) Shoulder Goniometric Range of Motion Shoulder Left Active Shoulder ROM WFL No Flexion 105 Extension 10 Abduction 100 Horizontal Abduction 75 Horizontal Adduction 35 External Rotation at 0 degrees Abduction 45 Internal Rotation Behind Back (text) L4 Right Active Shoulder ROM WFL Yes Shoulder ROM Limitations Shoulder ROM Limitations Soft Tissue Tightness,Muscle Weakness,Swelling Elbow/Forearm Range of Motion Elbow/Forearm Left Active Elbow/Forearm ROM WFL No Elbow Flexion (degrees) 125 Elbow Extension (degrees) 10 Pronation (degrees) 80 Supination (degrees) 35 Right Active Elbow/Forearm ROM WFL Yes Elbow/Forearm ROM Limitations Elbow/Forearm ROM Limitations Soft Tissue Tightness,Muscle Weakness,Swelling Wrist Goniometric Range of Motion Wrist Left Flexion Active (degrees) 5 Flexion Passive (degrees) 10 Extension Active (degrees) 5 Extension Passive (degrees) 10 Right Wrist ROM WFL Yes Finger Goniometric Range of Motion Finger left Finger ROM WFL No right Finger ROM WFL Yes Finger ROM Limitations Finger ROM Limitations Swelling Comments unable to achieve full head operator due to swelling PT-OP-N Lymphedema Start: 09/07/22 12:05 Freq: Status: Active Protocol: Document 10/29/22 13:22 [facility] (Rec: 10/29/22 15:24 [facility] [id number]) Lymphedema Measurements Upper Extremity Circumference Measurements Left Affected MCP 25.2 cm Dorsum of Hand 27.6 cm Wrist 27 cm 5 cm From Wrist Crease 30.4 cm 10 cm From Wrist Crease 33 cm 15 cm From Wrist Crease 38 cm 20 cm From Wrist Crease 43.7 cm 25 cm From Wrist Crease 45.3 cm 30 cm From Wrist Crease 44.7 cm 35 cm From Wrist Crease 48 cm 40 cm From Wrist Crease 48.3 cm 45 cm From Wrist Crease 50 cm Elbow Joint 44.7 cm PT-OP-Q Treatments Start: 09/07/22 12:05 Freq: Status: Active Protocol: Document 10/29/22 13:22 [facility] (Rec: 10/29/22 15:24 [facility] [id number]) Therapeutic Exercises Supine Exercises sequential lymphedema exercises Supine Exercise Name AAROM all joints and planes Side left Reps/Minutes 5-10 reps ea Comments PT physical guidance Sitting Exercises arms overhead Reps/Minutes 5x trunk rotation Side bilateral Reps/Minutes 5x shoulder rolls Side bilateral Reps/Minutes 10x Lymphedema Treatment Manual Lymphatic Drainage Location LUE Duration 30 min Comments Prepped AIA and AAA pathways before pump and continued intermittent pathway clearance during pump treatment Lymphedema Wrapping Materials No bandaging , instead trial of 2 copper fit gloves layered with compression sleeve, instructed to bandage at night. Highly recommend night garment for patient for softening of fibrotic tissue. Compression Garment Assessment Compression Garment Assessment Details good fit of copper fit gloves though compression level mild; recommended try wearing both gloves on his left UE for inc level of compression Patient Education Compression Garments consider night garment Other Importance of consistent compression Other Other soft tissue mobilization of areas of tissue fibrosis in hand and forearm. PT-OP-R Modalities Start: 09/07/22 12:05 Freq: Status: Active Protocol: Document 10/29/22 13:22 [facility] (Rec: 10/29/22 15:24 [facility] [id number]) Compression Pump Treatment Treatment Location Left Arm Pressure Amount (mmHg) (mmHG) 35 Inflation Time (Seconds) 30 Deflation Time (Seconds) 10 Treatment Duration (minutes) 30 Treatment Tolerance Good Treatment Comments white channel foam hand,wrist, forearm PT-OP-T Assessment and Plan Start: 09/07/22 12:05 Freq: Status: Active Protocol: Document 10/29/22 13:22 [facility] (Rec: 10/29/22 15:24 [facility] [id number]) Physical Therapy Assessment Impairments Impairments Edema,Integument,ROM Goals Three Impairment decreased left UE ROM Impairment left shoulder elevation limited to 110 degrees Short Term Goal (STG) Patient to be independent with progressive HEP for right shoulder ROM 10/13/22: pt. independent, fair compliance STG Duration 10/09/22 [facility] Goal (LTG) Patient able to lift arm overhead to at least 150 degrees to allow him to regain full functional use of his right UE and improve soft tissue mobility for lymphatic flow LTG Duration 12/09/22 Two Impairment lymphedema life impact scale 31% Fpc Goal (LTG) decrease lymphedema life impact scale score by at least 50% as measure of improved self-management and function 10/13/22: goal progress LTG Duration 12/09/22 One Impairment lymphedema left UE Short Term Goal (STG) Patient to be instructed in all aspects of lymphedema care to include skin care, MLD, compression, and lymphedema ex . Decrease lymphedema to stable level (no increase or decrease greater 1 cm over the course of 1 week) 10/13/22: has been difficult to stabilize measurements, due to 's work schedule difficulty in getting patient bandaged or now compression sleeve/gauntlet applied timely STG Duration 10/09/22 Digital Sales Representative Goal (LTG) Patient to be independent with all aspects of lymphedema care with assistance of his , and obtain appropriate compression garments for lymphedema management when maximal circumferential measurements achieved. LTG Duration 12/09/22 Assessment Summary Assessment Patient hadn't worn compression all day prior to PT, increased circumferential measurements. 1 Copper fit glove doesn't provide adequate compression, but able to wear with either channel foam dorsum of hand or 2 layers gloves; gloves are longer without tourniquet effect at wrist. Encouraged increased activity with UE but no going without compression. Physical Therapy Plan Frequency and Duration Frequency of Treatment 20 visits Duration of treatment (weeks) 12 Plan of Care Start Date 09/08/22 Plan of Care End Date 12/09/22 Therapeutic Interventions Therapeutic Interventions Lymphedema Management,Manual Therapy,Patient/Caregiver Education,Self-Care/Home Management,Soft Tissue Mobilization,Taping, Therapeutic Exercises Modalities Vasopneumatic Devices Next Visit Focus/Plan Next Note Type Treatment Note Next Visit Plan Circumferential measurements, assess response to channel foam. Insruct in use of home pump if delievered, continue to problem solve compression needs, cost is limiting factor
--- NOTE | 2022-11-05 14:11 | PT.OTN ---
Current Diagnoses Lymphedema, not elsewhere classified (11/05/22) Soft tissue disorder, unspecified (11/05/22) Other malaise (11/05/22) Physical Therapy Treatment Note PT-OP-A Visit Information Start: 09/07/22 12:05 Freq: Status: Active Protocol: Document 11/05/22 12:31 [facility] (Rec: 11/05/22 14:10 [facility] [id number]) Out-Patient Physical Therapy Visit Information Visit Information Visit Type Treatment Note Visit Start Time 12:32 Visit Stop Time 14:02 Total Visit Minutes 90 Visit Number 13 Precautions Precautions cardiac history, history CVA with left sided weakness, lymphoma (chronic chemo) PT-OP-B Current Condition Start: 09/07/22 12:05 Freq: Status: Active Protocol: Document 11/05/22 12:31 [facility] (Rec: 11/05/22 14:10 [facility] [id number]) Current Condition History of Current Condition Onset Date few months Current Complaints left arm lymphedema History of Current Condition Lymphedema started 9 months ago, unknown reason. CVA with left hemiparesis 2018. Undergoing chronic treatment for lymphoma. Has pacemaker. Worsening of swelling left UE started several months ago, saw massage therapist, no bandaging. Saw Gifty Ellison PT at this clinic, was sent to get compression sleeve and gauntlet at [facility]. States if he wears gauntlet with sleeve gets indentation at wrist. Currently 5 out of 7 days wears sleeve only, not gauntlet. Treatment Goals Patient/Caregiver Goals Decrease left UE edema and obtain appropriate compression garment. PT-OP-C Subjective Start: 09/07/22 12:05 Freq: Status: Active Protocol: Document 11/05/22 12:31 [facility] (Rec: 11/05/22 14:10 [facility] [id number]) OP-PT Subjective Patient Comments Patient Comments Understands his insurance only allows 2 more PT visits. Wearing double glove, has tried to stretch out end of sleeve with some success. Wants to discuss what kind of night garment. Has only been wearing compression for 1 hr today due to taking a shower. PT-OP-F Manual Assessment Start: 09/07/22 12:05 Freq: Status: Active Protocol: Document 09/08/22 12:30 [facility] (Rec: 09/08/22 14:22 [facility] [id number]) Manual Assessments Soft Tissue Assessment Soft Tissue Mobility Assessment fibrosis with mottled coloring left forearm PT-OP-G Mobility & Gait Start: 09/07/22 12:05 Freq: Status: Active Protocol: Document 09/08/22 12:30 [facility] (Rec: 09/08/22 14:22 [facility] [id number]) OP Mobility Evaluation Functional Movements Lifting and Carrying decreased ability PT-OP-H Neuro Start: 09/07/22 12:05 Freq: Status: Active Protocol: Document 09/08/22 12:30 [facility] (Rec: 09/08/22 14:22 [facility] [id number]) Sensation Evaluation Gross Sensation Gross Sensation Left UE Impaired PT-OP-J Posture/Palpation/Skin Start: 09/07/22 12:05 Freq: Status: Active Protocol: Document 09/08/22 12:30 [facility] (Rec: 09/08/22 14:22 [facility] [id number]) Palpation Assessment Location left UE Palpation Findings Edema,Soft Tissue Tightness Palpation Details fibrosis Skin Assessment Edema Assessment left UE Edema Degree 4+ Edema Appearance Discolored,Firm,Taut Subjective Edema Description Tightness Comments fibrosis left forearm PT-OP-K Range of Motion Start: 09/07/22 12:05 Freq: Status: Active Protocol: Document 09/08/22 12:30 [facility] (Rec: 09/08/22 14:22 [facility] [id number]) Shoulder Goniometric Range of Motion Shoulder Left Active Shoulder ROM WFL No Flexion 105 Extension 10 Abduction 100 Horizontal Abduction 75 Horizontal Adduction 35 External Rotation at 0 degrees Abduction 45 Internal Rotation Behind Back (text) L4 Right Active Shoulder ROM WFL Yes Shoulder ROM Limitations Shoulder ROM Limitations Soft Tissue Tightness,Muscle Weakness,Swelling Elbow/Forearm Range of Motion Elbow/Forearm Left Active Elbow/Forearm ROM WFL No Elbow Flexion (degrees) 125 Elbow Extension (degrees) 10 Pronation (degrees) 80 Supination (degrees) 35 Right Active Elbow/Forearm ROM WFL Yes Elbow/Forearm ROM Limitations Elbow/Forearm ROM Limitations Soft Tissue Tightness,Muscle Weakness,Swelling Wrist Goniometric Range of Motion Wrist Left Flexion Active (degrees) 5 Flexion Passive (degrees) 10 Extension Active (degrees) 5 Extension Passive (degrees) 10 Right Wrist ROM WFL Yes Finger Goniometric Range of Motion Finger left Finger ROM WFL No right Finger ROM WFL Yes Finger ROM Limitations Finger ROM Limitations Swelling Comments 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 swelling PT-OP-N Lymphedema Start: 09/07/22 12:05 Freq: Status: Active Protocol: Document 11/05/22 12:31 [facility] (Rec: 11/05/22 14:10 [facility] [id number]) Lymphedema Measurements Upper Extremity Circumference Measurements Left Affected MCP 25.2 cm Dorsum of Hand 28.2 cm Wrist 25.5 cm 5 cm From Wrist Crease 29.2 cm 10 cm From Wrist Crease 33.2 cm 15 cm From Wrist Crease 40.8 cm 20 cm From Wrist Crease 44.8 cm 25 cm From Wrist Crease 44.5 cm 30 cm From Wrist Crease 44.5 cm 35 cm From Wrist Crease 46.5 cm 40 cm From Wrist Crease 47.6 cm 45 cm From Wrist Crease 48.7 cm Elbow Joint 42.7 cm PT-OP-Q Treatments Start: 09/07/22 12:05 Freq: Status: Active Protocol: Document 11/05/22 12:31 [facility] (Rec: 11/05/22 14:10 [facility] [id number]) Cardio Equipment Upper Body Ergometer (UBE) Duration (Minutes) 8 RPM 80 Height 4 Other f/b Lymphedema Treatment Lymphedema Wrapping Body Location left UE Materials Tricofix size F,channel foam on forearm wrist to elbow, Artiflex (3 rolls), Comprilan 6,8x2,10x2 Sequential Lymphedema Exercises Comments see ex section of chart. Compression Garment Assessment Compression Garment Assessment Details wearing sleeve and double layer glove, encourage night garment Patient Education Compression Garments further discussion, decided on Tribute sleeve/gl PT-OP-R Modalities Start: 09/07/22 12:05 Freq: Status: Active Protocol: Document 10/29/22 13:22 [facility] (Rec: 10/29/22 15:24 [facility] [id number]) Compression Pump Treatment Treatment Location Left Arm Pressure Amount (mmHg) (mmHG) 35 Inflation Time (Seconds) 30 Deflation Time (Seconds) 10 Treatment Duration (minutes) 30 Treatment Tolerance Good Treatment Comments white channel foam hand,wrist, forearm PT-OP-T Assessment and Plan Start: 09/07/22 12:05 Freq: Status: Active Protocol: Document 11/05/22 12:31 [facility] (Rec: 11/05/22 14:10 [facility] [id number]) Physical Therapy Assessment Impairments Impairments Edema,Integument,ROM Goals Three Impairment decreased left UE ROM Impairment left shoulder elevation limited to 110 degrees Short Term Goal (STG) Patient to be independent with progressive HEP for right shoulder ROM 10/13/22: pt. independent, fair compliance STG Duration 10/09/22 Operator Specialist Communications Goal (LTG) Patient able to lift arm overhead to at least 150 degrees to allow him to regain full functional use of his right UE and improve soft tissue mobility for lymphatic flow LTG Duration 12/09/22 Two Impairment lymphedema life impact scale 31% Operator Specialist Communications Goal (LTG) decrease lymphedema life impact scale score by at least 50% as measure of improved self-management and function 10/13/22: goal progress LTG Duration 12/09/22 One Impairment lymphedema left UE Short Term Goal (STG) Patient to be instructed in all aspects of lymphedema care to include skin care, MLD, compression, and lymphedema ex . Decrease lymphedema to stable level (no increase or decrease greater 1 cm over the course of 1 week) 10/13/22: has been difficult to stabilize measurements, due to 's work schedule difficulty in getting patient bandaged or now compression sleeve/gauntlet applied timely STG Duration 10/09/22 [facility] Goal (LTG) Patient to be independent with all aspects of lymphedema care with assistance of his , and obtain appropriate compression garments for lymphedema management when maximal circumferential measurements achieved. LTG Duration 12/09/22 Assessment Summary Assessment Improved circumferential measurements at wrist, lower forearm, and upper arm. After discussion of benefits and options decided on Tribute night sleeve and glove, patient measurements indicate XL long correct fit; patient reminded to check return policy when orders. Physical Therapy Plan Frequency and Duration Frequency of Treatment 20 visits Duration of treatment (weeks) 12 Plan of Care Start Date 09/08/22 Plan of Care End Date 12/09/22 Therapeutic Interventions Therapeutic Interventions Lymphedema Management,Manual Therapy,Patient/Caregiver Education,Self-Care/Home Management,Soft Tissue Mobilization,Taping, Therapeutic Exercises Modalities Vasopneumatic Devices Next Visit Focus/Plan Next Note Type Treatment Note Next Visit Plan Circumferential measurements, assess response to channel foam. Insruct in use of home pump if delievered, continue to problem solve compression needs.
--- NOTE | 2022-11-10 13:56 | PT.OTN ---
Current Diagnoses Lymphedema, not elsewhere classified (11/10/22) Soft tissue disorder, unspecified (11/10/22) Other malaise (11/10/22) Physical Therapy Treatment Note PT-OP-A Visit Information Start: 09/07/22 12:05 Freq: Status: Active Protocol: Document 11/10/22 12:28 [facility] (Rec: 11/10/22 13:55 [facility] [id number]) Out-Patient Physical Therapy Visit Information Visit Information Visit Type Treatment Note Visit Start Time 12:32 Visit Stop Time 14:00 Total Visit Minutes 90 Visit Number 14 Precautions Precautions cardiac history, history CVA with left sided weakness, lymphoma (chronic chemo) PT-OP-B Current Condition Start: 09/07/22 12:05 Freq: Status: Active Protocol: Document 11/10/22 12:28 [facility] (Rec: 11/10/22 13:55 [facility] [id number]) Current Condition History of Current Condition Onset Date few months Current Complaints left arm lymphedema History of Current Condition Lymphedema started 9 months ago, unknown reason. CVA with left hemiparesis 2018. Undergoing chronic treatment for lymphoma. Has pacemaker. Worsening of swelling left UE started several months ago, saw massage therapist, no bandaging. Saw Gifty Ellison PT at this clinic, was sent to get compression sleeve and gauntlet at [facility]. States if he wears gauntlet with sleeve gets indentation at wrist. Currently 5 out of 7 days wears sleeve only, not gauntlet. Treatment Goals Patient/Caregiver Goals Decrease left UE edema and obtain appropriate compression garment. PT-OP-C Subjective Start: 09/07/22 12:05 Freq: Status: Active Protocol: Document 11/10/22 12:28 [facility] (Rec: 11/10/22 13:55 [facility] [id number]) OP-PT Subjective Patient Comments Patient Comments Reports his has been bandaging him at night, thinks he is going to order a night garment. I feel like I'm on the right track. PT-OP-F Manual Assessment Start: 09/07/22 12:05 Freq: Status: Active Protocol: Document 09/08/22 12:30 [facility] (Rec: 09/08/22 14:22 [facility] [id number]) Manual Assessments Soft Tissue Assessment Soft Tissue Mobility Assessment fibrosis with mottled coloring left forearm PT-OP-G Mobility & Gait Start: 09/07/22 12:05 Freq: Status: Active Protocol: Document 09/08/22 12:30 [facility] (Rec: 09/08/22 14:22 [facility] [id number]) OP Mobility Evaluation Functional Movements Lifting and Carrying decreased ability PT-OP-H Neuro Start: 09/07/22 12:05 Freq: Status: Active Protocol: Document 09/08/22 12:30 [facility] (Rec: 09/08/22 14:22 [facility] [id number]) Sensation Evaluation Gross Sensation Gross Sensation Left UE Impaired PT-OP-J Posture/Palpation/Skin Start: 09/07/22 12:05 Freq: Status: Active Protocol: Document 09/08/22 12:30 [facility] (Rec: 09/08/22 14:22 [facility] [id number]) Palpation Assessment Location left UE Palpation Findings Edema,Soft Tissue Tightness Palpation Details fibrosis Skin Assessment Edema Assessment left UE Edema Degree 4+ Edema Appearance Discolored,Firm,Taut Subjective Edema Description Tightness Comments fibrosis left forearm PT-OP-K Range of Motion Start: 09/07/22 12:05 Freq: Status: Active Protocol: Document 09/08/22 12:30 [facility] (Rec: 09/08/22 14:22 [facility] [id number]) Shoulder Goniometric Range of Motion Shoulder Left Active Shoulder ROM WFL No Flexion 105 Extension 10 Abduction 100 Horizontal Abduction 75 Horizontal Adduction 35 External Rotation at 0 degrees Abduction 45 Internal Rotation Behind Back (text) L4 Right Active Shoulder ROM WFL Yes Shoulder ROM Limitations Shoulder ROM Limitations Soft Tissue Tightness,Muscle Weakness,Swelling Elbow/Forearm Range of Motion Elbow/Forearm Left Active Elbow/Forearm ROM WFL No Elbow Flexion (degrees) 125 Elbow Extension (degrees) 10 Pronation (degrees) 80 Supination (degrees) 35 Right Active Elbow/Forearm ROM WFL Yes Elbow/Forearm ROM Limitations Elbow/Forearm ROM Limitations Soft Tissue Tightness,Muscle Weakness,Swelling Wrist Goniometric Range of Motion Wrist Left Flexion Active (degrees) 5 Flexion Passive (degrees) 10 Extension Active (degrees) 5 Extension Passive (degrees) 10 Right Wrist ROM WFL Yes Finger Goniometric Range of Motion Finger left Finger ROM WFL No right Finger ROM WFL Yes Finger ROM Limitations Finger ROM Limitations Swelling Comments unable to achieve full applications coordinator due to swelling PT-OP-N Lymphedema Start: 09/07/22 12:05 Freq: Status: Active Protocol: Document 11/10/22 12:28 [facility] (Rec: 11/10/22 13:55 [facility] [id number]) Lymphedema Measurements Upper Extremity Circumference Measurements Left Affected MCP 25.1 cm Dorsum of Hand 27.2 cm Wrist 25.3 cm 5 cm From Wrist Crease 29.3 cm 10 cm From Wrist Crease 34.6 cm 15 cm From Wrist Crease 41 cm 20 cm From Wrist Crease 44.5 cm 25 cm From Wrist Crease 44.3 cm 30 cm From Wrist Crease 43.7 cm 35 cm From Wrist Crease 44.3 cm 40 cm From Wrist Crease 47.2 cm 45 cm From Wrist Crease 49 cm Elbow Joint 42.7 cm PT-OP-Q Treatments Start: 09/07/22 12:05 Freq: Status: Active Protocol: Document 11/10/22 12:28 [facility] (Rec: 11/10/22 13:55 [facility] [id number]) Cardio Equipment Upper Body Ergometer (UBE) Duration (Minutes) 8 RPM 80 Height 4 Other f/b Therapeutic Exercises Supine Exercises sequential lymphedema exercises Supine Exercise Name AAROM all joints and planes Side left Reps/Minutes 5-10 reps ea Comments PT physical guidance Sitting Exercises trunk rotation Side bilateral Reps/Minutes 5x shoulder rolls Side bilateral Reps/Minutes 10x Lymphedema Treatment Manual Lymphatic Drainage Location LUE Duration 30 min Comments Prepped AIA and AAA pathways before pump and continued intermittent pathway clearance during pump treatment Lymphedema Wrapping Body Location left UE Materials Tricofix size F,channel foam on forearm wrist to elbow, Artiflex (3 rolls), Comprilan 6,8x2,10x2 Sequential Lymphedema Exercises Comments see ex section of chart. Compression Garment Assessment Compression Garment Assessment Details wearing sleeve and double layer glove, encourage night garment purchase Patient Education Compression Garments patient to order night garment , continue looking at glove options Other will have come in for short session for training with lymphedema pump PT-OP-R Modalities Start: 09/07/22 12:05 Freq: Status: Active Protocol: Document 11/10/22 12:28 [facility] (Rec: 11/10/22 13:55 [facility] [id number]) Compression Pump Treatment Treatment Location Left Arm Treatment Comments pump broken PT-OP-T Assessment and Plan Start: 09/07/22 12:05 Freq: Status: Active Protocol: Document 11/10/22 12:28 [facility] (Rec: 11/10/22 13:55 [facility] [id number]) Physical Therapy Assessment Impairments Impairments Edema,Integument,ROM Goals Three Impairment decreased left UE ROM Impairment left shoulder elevation limited to 110 degrees Short Term Goal (STG) Patient to be independent with progressive HEP for right shoulder ROM 10/13/22: pt. independent, fair compliance STG Duration 10/09/22 Long-Term Goal (LTG) Patient able to lift arm overhead to at least 150 degrees to allow him to regain full functional use of his right UE and improve soft tissue mobility for lymphatic flow LTG Duration 12/09/22 Two Impairment lymphedema life impact scale 31% Director Security Risk Management Goal (LTG) decrease lymphedema life impact scale score by at least 50% as measure of improved self-management and function 10/13/22: goal progress LTG Duration 12/09/22 One Impairment lymphedema left UE Short Term Goal (STG) Patient to be instructed in all aspects of lymphedema care to include skin care, MLD, compression, and lymphedema ex . Decrease lymphedema to stable level (no increase or decrease greater 1 cm over the course of 1 week) 10/13/22: has been difficult to stabilize measurements, due to 's work schedule difficulty in getting patient bandaged or now compression sleeve/gauntlet applied timely STG Duration 10/09/22 Director Security Risk Management Goal (LTG) Patient to be independent with all aspects of lymphedema care with assistance of his , and obtain appropriate compression garments for lymphedema management when maximal circumferential measurements achieved. LTG Duration 12/09/22 Assessment Summary Assessment Progress has been complicated by hemiparesis left UE but have improved circumferential measurements and patient has obtained compression sleeve and gloves. Have discussed further compression options, patient planning to get a night garment. Sequential pneumatic pump has not come yet, will contact patient when it arrives; shown video for set-up today during MLD. Will have come for brief visit when pump delivered. Should do well with self management with assistance of , encouraged to call or email PT with any questions. Physical Therapy Plan Discharge Physical Therapy Discharge Comments insurance restrictions
== END 2022-11-12 10:05 ==
LOC: PHYS 12:30
PROVIDERS: Family Provider Family Medicine; PCP Family Medicine; Referring Provider Family Medicine; Visit Provider Family Medicine
DX: R53.81 Other malaise (principal); I89.0 Lymphedema, not elsewhere classified; M79.9 Soft tissue disorder, unspecified
CPT/HCPCS: 97016; 97110; 97140; 97162; 97535

== ENCOUNTER → 2023-06-04 14:24 | Outpatient (CLI) | payer OTHER, SELFPAY | LOC: PHYS 14:25 | PROVIDERS: Family Provider Family Medicine; PCP Family Medicine; Referring Provider Family Medicine; Visit Provider Family Medicine | DX: R29.898 Other symptoms and signs involving the musculoskeletal system (principal); R20.0 Anesthesia of skin | CPT/HCPCS: 95886; 95910 ==

== ENCOUNTER → 2023-07-14 10:38 | Outpatient (CLI) | payer OTHER, SELFPAY ==
[2023-07-14 11:39] LABS: Hemoglobin A1C% w Est Avg Glu 5.7 % (4.0-6.0)
[2023-07-14 11:48] LABS: BUN Creatinine Ratio 17.9 (6-22); Blood Urea Nitrogen 19 mg/dL (9-20); Calcium 8.9 mg/dL (8.4-10.2); Carbon Dioxide 31 mmol/L (22-32); Chloride 103 mmol/L (98-107); Cholesterol 196 mg/dL (140-199); Estimated Glomerular Filt Rate > 60 mL/min (>60); Glucose 109 mg/dL (80-110); HDL Cholesterol 31 mg/dL (40-60); HEMOLYSIS < 15 (0-50); LDL Cholesterol Calculated 143 mg/dL (<100); Potassium 4.3 mmol/L (3.4-5.1); Sodium 137 mmol/L (137-145); Triglycerides 109 mg/dL (35-150)
[2023-07-14 11:52] LABS: High Sensitivity CRP - Cardiac 6.8 mg/L (1.0-3.0)
[2023-07-14 11:56] LABS: Creatinine Urine Random 184.4 mg/dL
[2023-07-14 12:20] LABS: Microalbumi Creatinin Ratio Ur 189.8 ug/mg CR (<30)
== END ==
PROVIDERS: Family Provider Family Medicine; PCP Family Medicine; Referring Provider Family Medicine; Visit Provider Family Medicine
DX: I48.91 Unspecified atrial fibrillation (principal); R73.9 Hyperglycemia, unspecified; I10 Essential (primary) hypertension; E78.5 Hyperlipidemia, unspecified; N40.1 Benign prostatic hyperplasia with lower urinary tract symptoms; N13.8 Other obstructive and reflux uropathy
CPT/HCPCS: 36415; 80048; 80061; 82043; 82570; 83036; 84153; 84154; 86140

== ENCOUNTER 2024-01-14 13:00 | Outpatient (RCR) | payer OTHER, SELFPAY ==
--- NOTE | 2023-11-16 16:23 | PT.OIE ---
Current Diagnoses Lymphedema, not elsewhere classified (11/17/23) Edema, unspecified (11/17/23) Past Medical History (Last Updated 01/21/23 @ 16:44 by Danielle Kennedy DO) Atrial fibrillation Chicken pox Chronic back pain Complete heart block CVA (cerebral vascular accident) (~11/2017) Kidney stones (~1975) Mantle cell lymphoma (~10/2017) Measles Melanoma (~1979) Mild aortic stenosis by prior echocardiogram (08/13/11) Mumps Onychomycosis Osteopenia of femoral neck, bilateral (~12/2018) Pacemaker (~04/2018) Plantar fasciitis (10/02/10) Skin cancer (~2004) Squamous cell carcinoma (08/2019) TIA (transient ischemic attack) (~2009) Tinea pedis Wears glasses Past Surgical History (Last Reviewed 05/30/21 @ 17:18 by Kasey Tineo MD) Anesthesia History of tonsillectomy S/P bronchoscopy with biopsy S/P TAVR (transcatheter aortic valve replacement) (~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 Physical Therapy Initial Evaluation PT-OP-A Visit Information Start: 11/15/23 16:24 Freq: Status: Active Protocol: Document 11/16/23 13:22 [facility] (Rec: 11/16/23 14:32 [facility] [id number]) Out-Patient Physical Therapy Visit Information Visit Information Visit Type Initial Evaluation Visit Note Pt. late due to car issues Visit Start Time 13:22 Visit Stop Time 14:30 Visit Number 1 Evaluation Information Evaluation Date 11/16/23 Precautions Precautions lymphoma PT-OP-B Current Condition Start: 11/15/23 16:24 Freq: Status: Active Protocol: Document 11/16/23 13:22 [facility] (Rec: 11/16/23 14:32 [facility] [id number]) Current Condition History of Current Condition Onset Date 2+ years Current Complaints lymphedema left UE History of Current Condition Previous treatment for lymphedema left UE with this PT, was discontinued due to insurance issues. Has velcro wrap compression wrap for left UE; hand and arm. Uses during the day and at night. Compression sleeves didn't work well for him, too difficult to don and doff and get to fit correctly, responded better to velcro wraps. Only has one compression garment due to cost, his has to help him get on correctly. Never got lymphedema pump. Was recently taken off a Cancer medication, discoloration that had been evident left UE has now disappeared. Is doing self massage, but not much exercise, states does a lot of sitting and is now noting left LE edema as well; wears knee high compression stockings that are too short, otherwise fit well. Feel he would benefit from thigh high compression on left. Has moderate knee pain bilaterally which limits his activity. PMH: lymphoma, TIA/CVA affecting left UE and LE, pacemaker. Reports he will be getting carpal tunnel surgery right hand. Prior Treatments and Tests CDT with this PT that was cut short due to insurance issues approximately 1 year ago. Treatment Goals Patient/Caregiver Goals Decrease lymphedema, patient to be able to self manage lymphedema with the assistance of his . Prior Functional Status Baseline Function- ADL's Independent Baseline Function- Mobility Independent Current Functional Impairments (Reported) Functional Limitations- ADL's takes more time Functional Limitations- Mobility/Gait uses quad cane right hand, antalgic gait Functional Limitations- Work/School retired, disabled Functional Limitations- Recreation/ unable due to weakness left UE Hobbies and LE, ángel knee pain left greater than right. Personal Factors Other Personal Factors That May Effect limited activity level due to Therapy/Recovery knee pain PT-OP-C Subjective Start: 11/15/23 16:24 Freq: Status: Active Protocol: Document 11/16/23 13:22 [facility] (Rec: 11/16/23 14:32 [facility] [id number]) Patient Questionnaires Lymphedema Life Impact Score Lymphedema Score 42 OP-PT Pain Assessment Pain Assessment Grid Paper Pain Assessment Grid Completed Yes Location right UE Intensity 4 left UE Intensity 1 Comments Pain Comments patient reports he will be having carpal tunnel surgery on right within a couple months. PT-OP-H Neuro Start: 11/15/23 16:24 Freq: Status: Active Protocol: Document 11/16/23 13:22 [facility] (Rec: 11/16/23 14:32 [facility] [id number]) Sensation Evaluation Gross Sensation Gross Sensation Left UE Impaired PT-OP-J Posture/Palpation/Skin Start: 11/15/23 16:24 Freq: Status: Active Protocol: Document 11/16/23 13:22 [facility] (Rec: 11/17/23 16:01 [facility] [id number]) Posture Evaluation Position Sitting Head/C-Spine Posture Forward Head T-Spine Posture Increased Kyphosis Shoulder Posture (L) Rounded,(R) Rounded Scapula Posture (L) Protracted,(R) Protracted Arm Posture (L) Internally Rotated,(R) Internally Rotated Palpation Assessment Location left UE Palpation Findings Edema,Soft Tissue Tightness Palpation Details fibrosis left hand, wrist, forearm Skin Assessment Edema Assessment left UE Edema Type Pitting Edema Degree 4+ Edema Appearance Firm,Taut Subjective Edema Description Tightness PT-OP-K Range of Motion Start: 11/15/23 16:24 Freq: Status: Active Protocol: Document 11/16/23 13:22 [facility] (Rec: 11/17/23 16:01 [facility] [id number]) Shoulder Goniometric Range of Motion Shoulder Left Active Shoulder ROM WFL No Testing Position Sitting Flexion 105 Extension 20 Abduction 95 External Rotation at 45 degrees 35 Abduction Internal Rotation Behind Back (text) S1 Right Shoulder ROM WFL Yes Shoulder ROM Limitations Shoulder ROM Limitations Soft Tissue Tightness,Muscle Weakness,Swelling Elbow/Forearm Range of Motion Elbow/Forearm left Elbow Flexion (degrees) 130 Elbow Extension (degrees) 5 Elbow Hyperextension 90 Pronation (degrees) 65 right Elbow/Forearm ROM WFL Yes Wrist Goniometric Range of Motion Wrist Left Wrist ROM WFL No Flexion Active (degrees) 20 Flexion Passive (degrees) 35 Extension Active (degrees) 10 Extension Passive (degrees) 25 Right Wrist ROM WFL Yes ROM Limitations Wrist Limitations of Range of Motion Soft Tissue Tightness,Muscle Weakness,Swelling Finger Goniometric Range of Motion Finger ROM Limitations Finger ROM Limitations Soft Tissue Tightness,Swelling Comments unable to make full fist with fingers and thumb due to lymphedema PT-OP-L Special Tests Start: 11/15/23 16:24 Freq: Status: Active Protocol: Document 11/16/23 13:22 [facility] (Rec: 11/17/23 16:01 [facility] [id number]) Special Tests Other Special Tests Special Tests Stemmer sign positive for lymphedema PT-OP-N Lymphedema Start: 11/15/23 16:24 Freq: Status: Active Protocol: Document 11/16/23 13:22 [facility] (Rec: 11/16/23 14:32 [facility] [id number]) Lymphedema Measurements Upper Extremity Circumference Measurements Right unaffected MCP 24.5 cm Dorsum of Hand 24.9 cm Wrist 23.6 cm 5 cm From Wrist Crease 24.1 cm 10 cm From Wrist Crease 27.8 cm 15 cm From Wrist Crease 32.7 cm 20 cm From Wrist Crease 35.6 cm 25 cm From Wrist Crease 37.1 cm 30 cm From Wrist Crease 37.8 cm 35 cm From Wrist Crease 37.5 cm 40 cm From Wrist Crease 40 cm 45 cm From Wrist Crease 44.1 cm Elbow Joint 38.1 cm Left Affected MCP 24.8 cm Dorsum of Hand 26.1 cm Wrist 25.2 cm 5 cm From Wrist Crease 27.9 cm 10 cm From Wrist Crease 31.6 cm 15 cm From Wrist Crease 38.3 cm 20 cm From Wrist Crease 42.6 cm 25 cm From Wrist Crease 43.4 cm 30 cm From Wrist Crease 44 cm 35 cm From Wrist Crease 45 cm 40 cm From Wrist Crease 47 cm 45 cm From Wrist Crease 50.2 cm Elbow Joint 42.8 cm PT-OP-Q Treatments Start: 11/15/23 16:24 Freq: Status: Active Protocol: Document 11/16/23 13:22 [facility] (Rec: 11/17/23 16:01 [facility] [id number]) Lymphedema Treatment Manual Lymphatic Drainage Location for left UE lymphedema Lymphedema Wrapping Body Location left UE Materials Size F Tricofix, finger wraps, Artiflex (3), Comprilan (6,8, 10x2) Sequential Lymphedema Exercises Location reviewed Comments also reviewed left UE stretching ex Patient Education Lymphedema Pathology reviewed Lymphedema Prevention reviewed Lymphedema Precautions reviewed Compression Garments discussed options Self Manual Lymphatic Drainage reviewed Sequential Lymphedema Exercises reviewed PT-OP-T Assessment and Plan Start: 11/15/23 16:24 Freq: Status: Active Protocol: Document 11/16/23 13:22 [facility] (Rec: 11/16/23 14:32 [facility] [id number]) Physical Therapy Assessment Rehab Potential Rehabilitation Potential Good Evaluation Complexity Number of Personal Factors/Comorbidities 1-2 Number of Body Systems Impaired 3 Clinical Presentation at Evaluation Evolving Impairments Impairments Activity Tolerance,Edema Goals Two Impairment lymphedema life impact scale 44% Short Term Goal (STG) decrease lymphedema life impact scale to no greater than 30% as measure of improved activity tolerance and quality of life STG Duration 01/01/24 Breaker Up Machine Operator Goal (LTG) Decrease lymphedema life impact scale to no greater than 20% as measure of improved activity tolerance and quality of life LTG Duration 02/15/24 One Impairment lymphedema left UE Short Term Goal (STG) Patient will be instructed in all aspects of lymphedema self -care to include skin care, elevation, self-massage, self- bandaging/compression options, and lymphedema exercises. STG Duration 01/01/24 Snf Goal (LTG) Decrease patient?s lymphedema to a stable level (no increase or decrease greater than 1 cm over the course of 1 week), patient to be independent with all aspects of self-care for lymphedema, and will obtain appropriate compression garment for lymphedema management in the home, and sequential pneumatic pump to assist with self management in the home. Three Impairment left shoulder elevation limited to 113 degrees Short Term Goal (STG) Patient to be instructed in HEP for purposes of addressing left UE ROM impairment STG Duration 01/01/24 Breaker Up Machine Operator Goal (LTG) Patient to be independent and compliant with HEP and improve left shoulder elevation to at least 140 degrees for improved function and to facilitate lymphatic flow. LTG Duration 02/15/24 Assessment Summary Assessment Patient presents to PT with function-limiting lymphedema left UE which developed after CVA. Patient had prior PT for lymphedema which he had to discontinue due to insurance issues. Poor ability to don and doff compression sleeves and had poor fit of sleeves. At this time patient wearing night garment for left hand/ fingers and left UE, and wears during the day as well. Did not obtain daytime velcro compression garments due to cost. Lymphedema not well controlled, has need for daytime garments to allow improved left UE function and feel he would benefit highly from the use of a sequential pneumatic pump to assist in his lymphedema management; PT as well as a garment finisher tried to facilitate patient obtaining a pump but he never received. Feel he will benefit from course of complete decongestive therapy starting with reduction phase and then decreasing frequency to maintenance phase with assistance in obtaining appropriate compression garments and pump as possible. POC was discussed with patient and he was in agreement. Physical Therapy Plan Frequency and Duration Frequency of Treatment 20 Duration of treatment (weeks) 12 Plan of Care Start Date 11/16/23 Plan of Care End Date 02/15/24 Therapeutic Interventions Therapeutic Interventions Home Exercise Program, Lymphedema Management,Manual Therapy,Patient/Caregiver Education,Self-Care/Home Management,Soft Tissue Mobilization,Taping, Therapeutic Activities, Therapeutic Exercises Modalities Vasopneumatic Devices Next Visit Focus/Plan Next Note Type Treatment Note Next Visit Plan Continue Complete Decongestive Therapy (CDT), patient to check with insurance company ( [employer]) about coverage for compression garments and sequential pneumatic pumps. Patient to be referred to garment finisher when max reduction of lymphedema achieved, and will submit paperwork for sequential pneumatic pump after has been receiving conservative care for at least 30 days ( insurance requirement).
--- NOTE | 2023-11-16 16:23 | PT.OPPOC ---
Physical, Occupational & Speech Therapy At [facility] Current Diagnoses Lymphedema, not elsewhere classified (11/17/23) Edema, unspecified (11/17/23) Visit Care Team Role Provider Type Danielle Kennedy DO Attending Provider Physician Family Provider Primary Care Provider Referring Provider Specialty: Medical Address: [address] [place] [address], [address], [place], [address] Email: [email or web address] Plan Of Care PT-OP-B Current Condition Start: 11/15/23 16:24 Freq: Status: Active Protocol: Document 11/16/23 13:22 [facility] (Rec: 11/16/23 14:32 [facility] [id number]) Current Condition History of Current Condition Onset Date 2+ years Current Complaints lymphedema left UE History of Current Condition Previous treatment for lymphedema left UE with this PT, was discontinued due to insurance issues. Has velcro wrap compression wrap for left UE; hand and arm. Uses during the day and at night. Compression sleeves didn't work well for him, too difficult to don and doff and get to fit correctly, responded better to velcro wraps. Only has one compression garment due to cost, his has to help him get on correctly. Never got lymphedema pump. Was recently taken off a Cancer medication, discoloration that had been evident left UE has now disappeared. Is doing self massage, but not much exercise, states does a lot of sitting and is now noting left LE edema as well; wears knee high compression stockings that are too short, otherwise fit well. Feel he would benefit from thigh high compression on left. Has moderate knee pain bilaterally which limits his activity. PMH: lymphoma, TIA/CVA affecting left UE and LE, pacemaker. Reports he will be getting carpal tunnel surgery right hand. Prior Treatments and Tests CDT with this PT that was cut short due to insurance issues approximately 1 year ago. Treatment Goals Patient/Caregiver Goals Decrease lymphedema, patient to be able to self manage lymphedema with the assistance of his . Prior Functional Status Baseline Function- ADL's Independent Baseline Function- Mobility Independent Current Functional Impairments (Reported) Functional Limitations- ADL's takes more time Functional Limitations- Mobility/Gait uses quad cane right hand, antalgic gait Functional Limitations- Work/School retired, disabled Functional Limitations- Recreation/ unable due to weakness left UE Hobbies and LE, ángel knee pain left greater than right. Personal Factors Other Personal Factors That May Effect limited activity level due to Therapy/Recovery knee pain PT-OP-T Assessment and Plan Start: 11/15/23 16:24 Freq: Status: Active Protocol: Document 11/16/23 13:22 [facility] (Rec: 11/16/23 14:32 [facility] [id number]) Physical Therapy Assessment Rehab Potential Rehabilitation Potential Good Evaluation Complexity Number of Personal Factors/Comorbidities 1-2 Number of Body Systems Impaired 3 Clinical Presentation at Evaluation Evolving Impairments Impairments Activity Tolerance,Edema Goals Two Impairment lymphedema life impact scale 44% Short Term Goal (STG) decrease lymphedema life impact scale to no greater than 30% as measure of improved activity tolerance and quality of life STG Duration 01/01/24 Halfway Goal (LTG) Decrease lymphedema life impact scale to no greater than 20% as measure of improved activity tolerance and quality of life LTG Duration 02/15/24 One Impairment lymphedema left UE Short Term Goal (STG) Patient will be instructed in all aspects of lymphedema self -care to include skin care, elevation, self-massage, self- bandaging/compression options, and lymphedema exercises. STG Duration 01/01/24 Comp Field Case Manager Goal (LTG) Decrease patient?s lymphedema to a stable level (no increase or decrease greater than 1 cm over the course of 1 week), patient to be independent with all aspects of self-care for lymphedema, and will obtain appropriate compression garment for lymphedema management in the home, and sequential pneumatic pump to assist with self management in the home. Three Impairment left shoulder elevation limited to 113 degrees Short Term Goal (STG) Patient to be instructed in HEP for purposes of addressing left UE ROM impairment STG Duration 01/01/24 Comp Field Case Manager Goal (LTG) Patient to be independent and compliant with HEP and improve left shoulder elevation to at least 140 degrees for improved function and to facilitate lymphatic flow. LTG Duration 02/15/24 Assessment Summary Assessment Patient presents to PT with function-limiting lymphedema left UE which developed after CVA. Patient had prior PT for lymphedema which he had to discontinue due to insurance issues. Poor ability to don and doff compression sleeves and had poor fit of sleeves. At this time patient wearing night garment for left hand/ fingers and left UE, and wears during the day as well. Did not obtain daytime velcro compression garments due to cost. Lymphedema not well controlled, has need for daytime garments to allow improved left UE function and feel he would benefit highly from the use of a sequential pneumatic pump to assist in his lymphedema management; PT as well as a gas main and line fitter tried to facilitate patient obtaining a pump but he never received. Feel he will benefit from course of complete decongestive therapy starting with reduction phase and then decreasing frequency to maintenance phase with assistance in obtaining appropriate compression garments and pump as possible. POC was discussed with patient and he was in agreement. Physical Therapy Plan Frequency and Duration Frequency of Treatment 20 Duration of treatment (weeks) 12 Plan of Care Start Date 11/16/23 Plan of Care End Date 02/15/24 Therapeutic Interventions Therapeutic Interventions Home Exercise Program, Lymphedema Management,Manual Therapy,Patient/Caregiver Education,Self-Care/Home Management,Soft Tissue Mobilization,Taping, Therapeutic Activities, Therapeutic Exercises Modalities Vasopneumatic Devices Next Visit Focus/Plan Next Note Type Treatment Note Next Visit Plan Continue Complete Decongestive Therapy (CDT), patient to check with insurance company ( [employer]) about coverage for compression garments and sequential pneumatic pumps. Patient to be referred to gas main and line fitter when max reduction of lymphedema achieved, and will submit paperwork for sequential pneumatic pump after has been receiving conservative care for at least 30 days ( insurance requirement). Plan of Care Dates Plan of Care Start Date 11/16/23 Plan of Care End Date 02/15/24 Electronically Signed by: Gabriela Ellis PT 11/17/23 0494 If you are in agreement with this Plan of Care, please return a signed and dated copy. I have reviewed this Plan of Care and certify that the skilled therapy services above are required to meet the patient?s needs. Physician Signature Date Printed Name and Credentials Clinical Instructor Signature Printed Name and Credentials
--- NOTE | 2023-11-17 16:22 | PT.OIE ---
Current Diagnoses Lymphedema, not elsewhere classified (11/17/23) Edema, unspecified (11/17/23) Past Medical History (Last Updated 01/21/23 @ 16:44 by Danielle Kennedy DO) Atrial fibrillation Chicken pox Chronic back pain Complete heart block CVA (cerebral vascular accident) (~11/2017) Kidney stones (~1975) Mantle cell lymphoma (~10/2017) Measles Melanoma (~1979) Mild aortic stenosis by prior echocardiogram (08/13/11) Mumps Onychomycosis Osteopenia of femoral neck, bilateral (~12/2018) Pacemaker (~04/2018) Plantar fasciitis (10/02/10) Skin cancer (~2004) Squamous cell carcinoma (08/2019) TIA (transient ischemic attack) (~2009) Tinea pedis Wears glasses Past Surgical History (Last Reviewed 05/30/21 @ 17:18 by Kasey Tineo MD) Anesthesia History of tonsillectomy S/P bronchoscopy with biopsy S/P TAVR (transcatheter aortic valve replacement) (~04/2018) Status post cardiac pacemaker procedure (~05/14/18) Visit Care Team Role Provider Type Danielle Kennedy DO Attending Provider Physician Family Provider Primary Care Provider Referring Provider Specialty: Medical Address: [address] [place] [address], [address], [place], [place], [facility] Email: [email or web address] Physical Therapy Initial Evaluation PT-OP-A Visit Information Start: 11/15/23 16:24 Freq: Status: Active Protocol: Document 11/16/23 13:22 [facility] (Rec: 11/16/23 14:32 [facility] [id number]) Out-Patient Physical Therapy Visit Information Visit Information Visit Type Initial Evaluation Visit Note Pt. late due to car issues Visit Start Time 13:22 Visit Stop Time 14:30 Visit Number 1 Evaluation Information Evaluation Date 11/16/23 Precautions Precautions lymphoma PT-OP-B Current Condition Start: 11/15/23 16:24 Freq: Status: Active Protocol: Document 11/16/23 13:22 [facility] (Rec: 11/16/23 14:32 [facility] [id number]) Current Condition History of Current Condition Onset Date 2+ years Current Complaints lymphedema left UE History of Current Condition Previous treatment for lymphedema left UE with this PT, was discontinued due to insurance issues. Has velcro wrap compression wrap for left UE; hand and arm. Uses during the day and at night. Compression sleeves didn't work well for him, too difficult to don and doff and get to fit correctly, responded better to velcro wraps. Only has one compression garment due to cost, his has to help him get on correctly. Never got lymphedema pump. Was recently taken off a Cancer medication, discoloration that had been evident left UE has now disappeared. Is doing self massage, but not much exercise, states does a lot of sitting and is now noting left LE edema as well; wears knee high compression stockings that are too short, otherwise fit well. Feel he would benefit from thigh high compression on left. Has moderate knee pain bilaterally which limits his activity. PMH: lymphoma, TIA/CVA affecting left UE and LE, pacemaker. Reports he will be getting carpal tunnel surgery right hand. Prior Treatments and Tests CDT with this PT that was cut short due to insurance issues approximately 1 year ago. Treatment Goals Patient/Caregiver Goals Decrease lymphedema, patient to be able to self manage lymphedema with the assistance of his . Prior Functional Status Baseline Function- ADL's Independent Baseline Function- Mobility Independent Current Functional Impairments (Reported) Functional Limitations- ADL's takes more time Functional Limitations- Mobility/Gait uses quad cane right hand, antalgic gait Functional Limitations- Work/School retired, disabled Functional Limitations- Recreation/ unable due to weakness left UE Hobbies and LE, ángel knee pain left greater than right. Personal Factors Other Personal Factors That May Effect limited activity level due to Therapy/Recovery knee pain PT-OP-C Subjective Start: 11/15/23 16:24 Freq: Status: Active Protocol: Document 11/16/23 13:22 [facility] (Rec: 11/16/23 14:32 [facility] [id number]) Patient Questionnaires Lymphedema Life Impact Score Lymphedema Score 42 OP-PT Pain Assessment Pain Assessment Grid Paper Pain Assessment Grid Completed Yes Location right UE Intensity 4 left UE Intensity 1 Comments Pain Comments patient reports he will be having carpal tunnel surgery on right within a couple months. PT-OP-H Neuro Start: 11/15/23 16:24 Freq: Status: Active Protocol: Document 11/16/23 13:22 [facility] (Rec: 11/16/23 14:32 [facility] [id number]) Sensation Evaluation Gross Sensation Gross Sensation Left UE Impaired PT-OP-J Posture/Palpation/Skin Start: 11/15/23 16:24 Freq: Status: Active Protocol: Document 11/16/23 13:22 [facility] (Rec: 11/17/23 16:01 [facility] [id number]) Posture Evaluation Position Sitting Head/C-Spine Posture Forward Head T-Spine Posture Increased Kyphosis Shoulder Posture (L) Rounded,(R) Rounded Scapula Posture (L) Protracted,(R) Protracted Arm Posture (L) Internally Rotated,(R) Internally Rotated Palpation Assessment Location left UE Palpation Findings Edema,Soft Tissue Tightness Palpation Details fibrosis left hand, wrist, forearm Skin Assessment Edema Assessment left UE Edema Type Pitting Edema Degree 4+ Edema Appearance Firm,Taut Subjective Edema Description Tightness PT-OP-K Range of Motion Start: 11/15/23 16:24 Freq: Status: Active Protocol: Document 11/16/23 13:22 [facility] (Rec: 11/17/23 16:01 [facility] [id number]) Shoulder Goniometric Range of Motion Shoulder Left Active Shoulder ROM WFL No Testing Position Sitting Flexion 105 Extension 20 Abduction 95 External Rotation at 45 degrees 35 Abduction Internal Rotation Behind Back (text) S1 Right Shoulder ROM WFL Yes Shoulder ROM Limitations Shoulder ROM Limitations Soft Tissue Tightness,Muscle Weakness,Swelling Elbow/Forearm Range of Motion Elbow/Forearm left Elbow Flexion (degrees) 130 Elbow Extension (degrees) 5 Elbow Hyperextension 90 Pronation (degrees) 65 right Elbow/Forearm ROM WFL Yes Wrist Goniometric Range of Motion Wrist Left Wrist ROM WFL No Flexion Active (degrees) 20 Flexion Passive (degrees) 35 Extension Active (degrees) 10 Extension Passive (degrees) 25 Right Wrist ROM WFL Yes ROM Limitations Wrist Limitations of Range of Motion Soft Tissue Tightness,Muscle Weakness,Swelling Finger Goniometric Range of Motion Finger ROM Limitations Finger ROM Limitations Soft Tissue Tightness,Swelling Comments unable to make full fist with fingers and thumb due to lymphedema PT-OP-L Special Tests Start: 11/15/23 16:24 Freq: Status: Active Protocol: Document 11/16/23 13:22 [facility] (Rec: 11/17/23 16:01 [facility] [id number]) Special Tests Other Special Tests Special Tests Stemmer sign positive for lymphedema PT-OP-N Lymphedema Start: 11/15/23 16:24 Freq: Status: Active Protocol: Document 11/16/23 13:22 [facility] (Rec: 11/16/23 14:32 [facility] [id number]) Lymphedema Measurements Upper Extremity Circumference Measurements Right unaffected MCP 24.5 cm Dorsum of Hand 24.9 cm Wrist 23.6 cm 5 cm From Wrist Crease 24.1 cm 10 cm From Wrist Crease 27.8 cm 15 cm From Wrist Crease 32.7 cm 20 cm From Wrist Crease 35.6 cm 25 cm From Wrist Crease 37.1 cm 30 cm From Wrist Crease 37.8 cm 35 cm From Wrist Crease 37.5 cm 40 cm From Wrist Crease 40 cm 45 cm From Wrist Crease 44.1 cm Elbow Joint 38.1 cm Left Affected MCP 24.8 cm Dorsum of Hand 26.1 cm Wrist 25.2 cm 5 cm From Wrist Crease 27.9 cm 10 cm From Wrist Crease 31.6 cm 15 cm From Wrist Crease 38.3 cm 20 cm From Wrist Crease 42.6 cm 25 cm From Wrist Crease 43.4 cm 30 cm From Wrist Crease 44 cm 35 cm From Wrist Crease 45 cm 40 cm From Wrist Crease 47 cm 45 cm From Wrist Crease 50.2 cm Elbow Joint 42.8 cm PT-OP-Q Treatments Start: 11/15/23 16:24 Freq: Status: Active Protocol: Document 11/16/23 13:22 [facility] (Rec: 11/17/23 16:01 [facility] [id number]) Lymphedema Treatment Manual Lymphatic Drainage Location for left UE lymphedema Lymphedema Wrapping Body Location left UE Materials Size F Tricofix, finger wraps, Artiflex (3), Comprilan (6,8, 10x2) Sequential Lymphedema Exercises Location reviewed Comments also reviewed left UE stretching ex Patient Education Lymphedema Pathology reviewed Lymphedema Prevention reviewed Lymphedema Precautions reviewed Compression Garments discussed options Self Manual Lymphatic Drainage reviewed Sequential Lymphedema Exercises reviewed PT-OP-T Assessment and Plan Start: 11/15/23 16:24 Freq: Status: Active Protocol: Document 11/16/23 13:22 [facility] (Rec: 11/16/23 14:32 [facility] [id number]) Physical Therapy Assessment Rehab Potential Rehabilitation Potential Good Evaluation Complexity Number of Personal Factors/Comorbidities 1-2 Number of Body Systems Impaired 3 Clinical Presentation at Evaluation Evolving Impairments Impairments Activity Tolerance,Edema Goals Two Impairment lymphedema life impact scale 44% Short Term Goal (STG) decrease lymphedema life impact scale to no greater than 30% as measure of improved activity tolerance and quality of life STG Duration 01/01/24 District Director Goal (LTG) Decrease lymphedema life impact scale to no greater than 20% as measure of improved activity tolerance and quality of life LTG Duration 02/15/24 One Impairment lymphedema left UE Short Term Goal (STG) Patient will be instructed in all aspects of lymphedema self -care to include skin care, elevation, self-massage, self- bandaging/compression options, and lymphedema exercises. STG Duration 01/01/24 Intermediate Goal (LTG) Decrease patient?s lymphedema to a stable level (no increase or decrease greater than 1 cm over the course of 1 week), patient to be independent with all aspects of self-care for lymphedema, and will obtain appropriate compression garment for lymphedema management in the home, and sequential pneumatic pump to assist with self management in the home. Three Impairment left shoulder elevation limited to 113 degrees Short Term Goal (STG) Patient to be instructed in HEP for purposes of addressing left UE ROM impairment STG Duration 01/01/24 District Director Goal (LTG) Patient to be independent and compliant with HEP and improve left shoulder elevation to at least 140 degrees for improved function and to facilitate lymphatic flow. LTG Duration 02/15/24 Assessment Summary Assessment Patient presents to PT with function-limiting lymphedema left UE which developed after CVA. Patient had prior PT for lymphedema which he had to discontinue due to insurance issues. Poor ability to don and doff compression sleeves and had poor fit of sleeves. At this time patient wearing night garment for left hand/ fingers and left UE, and wears during the day as well. Did not obtain daytime velcro compression garments due to cost. Lymphedema not well controlled, has need for daytime garments to allow improved left UE function and feel he would benefit highly from the use of a sequential pneumatic pump to assist in his lymphedema management; PT as well as a corset fitter tried to facilitate patient obtaining a pump but he never received. Feel he will benefit from course of complete decongestive therapy starting with reduction phase and then decreasing frequency to maintenance phase with assistance in obtaining appropriate compression garments and pump as possible. POC was discussed with patient and he was in agreement. Physical Therapy Plan Frequency and Duration Frequency of Treatment 20 Duration of treatment (weeks) 12 Plan of Care Start Date 11/16/23 Plan of Care End Date 02/15/24 Therapeutic Interventions Therapeutic Interventions Home Exercise Program, Lymphedema Management,Manual Therapy,Patient/Caregiver Education,Self-Care/Home Management,Soft Tissue Mobilization,Taping, Therapeutic Activities, Therapeutic Exercises Modalities Vasopneumatic Devices Next Visit Focus/Plan Next Note Type Treatment Note Next Visit Plan Continue Complete Decongestive Therapy (CDT), patient to check with insurance company ( [employer]) about coverage for compression garments and sequential pneumatic pumps. Patient to be referred to corset fitter when max reduction of lymphedema achieved, and will submit paperwork for sequential pneumatic pump after has been receiving conservative care for at least 30 days ( insurance requirement).
--- NOTE | 2023-11-17 16:39 | PT.OTN ---
Current Diagnoses Lymphedema, not elsewhere classified (11/17/23) Edema, unspecified (11/17/23) Physical Therapy Treatment Note PT-OP-A Visit Information Start: 11/15/23 16:24 Freq: Status: Active Protocol: Document 11/17/23 16:25 SAK (Rec: 11/17/23 16:33 [facility] [id number]) Out-Patient Physical Therapy Visit Information Visit Information Visit Type Treatment Note Visit Start Time 14:30 Visit Stop Time 16:00 Visit Number 2 Evaluation Information Evaluation Date 11/16/23 Precautions Precautions lymphoma PT-OP-B Current Condition Start: 11/15/23 16:24 Freq: Status: Active Protocol: Document 11/17/23 16:25 SAK (Rec: 11/17/23 16:33 [facility] [id number]) Current Condition History of Current Condition Onset Date 2+ years Current Complaints lymphedema left UE History of Current Condition Previous treatment for lymphedema left UE with this PT, was discontinued due to insurance issues. Has velcro wrap compression wrap for left UE; hand and arm. Uses during the day and at night. Compression sleeves didn't work well for him, too difficult to don and doff and get to fit correctly, responded better to velcro wraps. Only has one compression garment due to cost, his has to help him get on correctly. Never got lymphedema pump. Was recently taken off a Cancer medication, discoloration that had been evident left UE has now disappeared. Is doing self massage, but not much exercise, states does a lot of sitting and is now noting left LE edema as well; wears knee high compression stockings that are too short, otherwise fit well. Feel he would benefit from thigh high compression on left. Has moderate knee pain bilaterally which limits his activity. PMH: lymphoma, TIA/CVA affecting left UE and LE, pacemaker. Reports he will be getting carpal tunnel surgery right hand. Prior Treatments and Tests CDT with this PT that was cut short due to insurance issues approximately 1 year ago. PT-OP-C Subjective Start: 11/15/23 16:24 Freq: Status: Active Protocol: Document 11/17/23 16:25 SAK (Rec: 11/17/23 16:33 [facility] [id number]) OP-PT Subjective Patient Comments Patient Comments Patient reports he was able to leave bandaging on all night, had some difficulty with the finger bandaging coming off. Reports he fell this am onto his right UE, has some scrapes but didn't seriously hurt himself. PT-OP-H Neuro Start: 11/15/23 16:24 Freq: Status: Active Protocol: Document 11/16/23 13:22 [facility] (Rec: 11/16/23 14:32 [facility] [id number]) Sensation Evaluation Gross Sensation Gross Sensation Left UE Impaired PT-OP-J Posture/Palpation/Skin Start: 11/15/23 16:24 Freq: Status: Active Protocol: Document 11/16/23 13:22 [facility] (Rec: 11/17/23 16:01 [facility] [id number]) Posture Evaluation Position Sitting Head/C-Spine Posture Forward Head T-Spine Posture Increased Kyphosis Shoulder Posture (L) Rounded,(R) Rounded Scapula Posture (L) Protracted,(R) Protracted Arm Posture (L) Internally Rotated,(R) Internally Rotated Palpation Assessment Location left UE Palpation Findings Edema,Soft Tissue Tightness Palpation Details fibrosis left hand, wrist, forearm Skin Assessment Edema Assessment left UE Edema Type Pitting Edema Degree 4+ Edema Appearance Firm,Taut Subjective Edema Description Tightness PT-OP-K Range of Motion Start: 11/15/23 16:24 Freq: Status: Active Protocol: Document 11/16/23 13:22 [facility] (Rec: 11/17/23 16:01 [facility] [id number]) Shoulder Goniometric Range of Motion Shoulder Left Active Shoulder ROM WFL No Testing Position Sitting Flexion 105 Extension 20 Abduction 95 External Rotation at 45 degrees 35 Abduction Internal Rotation Behind Back (text) S1 Right Shoulder ROM WFL Yes Shoulder ROM Limitations Shoulder ROM Limitations Soft Tissue Tightness,Muscle Weakness,Swelling Elbow/Forearm Range of Motion Elbow/Forearm left Elbow Flexion (degrees) 130 Elbow Extension (degrees) 5 Elbow Hyperextension 90 Pronation (degrees) 65 right Elbow/Forearm ROM WFL Yes Wrist Goniometric Range of Motion Wrist Left Wrist ROM WFL No Flexion Active (degrees) 20 Flexion Passive (degrees) 35 Extension Active (degrees) 10 Extension Passive (degrees) 25 Right Wrist ROM WFL Yes ROM Limitations Wrist Limitations of Range of Motion Soft Tissue Tightness,Muscle Weakness,Swelling Finger Goniometric Range of Motion Finger ROM Limitations Finger ROM Limitations Soft Tissue Tightness,Swelling Comments unable to make full fist with fingers and thumb due to lymphedema PT-OP-L Special Tests Start: 11/15/23 16:24 Freq: Status: Active Protocol: Document 11/16/23 13:22 SAK (Rec: 11/17/23 16:01 [facility] [id number]) Special Tests Other Special Tests Special Tests Stemmer sign positive for lymphedema PT-OP-N Lymphedema Start: 11/15/23 16:24 Freq: Status: Active Protocol: Document 11/17/23 16:25 SAK (Rec: 11/17/23 16:33 [facility] [id number]) Lymphedema Measurements Upper Extremity Circumference Measurements Left Affected MCP 24.1 cm Dorsum of Hand 25.5 cm Wrist 24.2 cm 5 cm From Wrist Crease 26.3 cm 10 cm From Wrist Crease 31.2 cm 15 cm From Wrist Crease 35.7 cm 20 cm From Wrist Crease 40 cm 25 cm From Wrist Crease 41 cm 30 cm From Wrist Crease 43 cm 35 cm From Wrist Crease 45.8 cm 40 cm From Wrist Crease 47.8 cm 45 cm From Wrist Crease 49.2 cm Elbow Joint 41.7 cm PT-OP-Q Treatments Start: 11/15/23 16:24 Freq: Status: Active Protocol: Document 11/17/23 16:25 SAK (Rec: 11/17/23 16:33 [facility] [id number]) Cardio Equipment Upper Body Ergometer (UBE) Duration (Minutes) 8 RPM 80 Height 4 Recumbent Stepper (Sci-Fit) Duration (Minutes) 3 Resistance 1 Seat Position 16 Other again poorly tolerated, will stay with UBE at this time Lymphedema Treatment Manual Lymphatic Drainage Duration 40 Comments sequential pneumatic pump at 30 mm Hg applied to left UE during measurement of right UE and patient education Lymphedema Wrapping Body Location left UE Materials Size F Tricofix, finger wraps, channel foam, Artiflex (3), Comprilan (6,8,10x2) Compression Garment Assessment Compression Garment Assessment Details patient brought night garment hand glove and arm. Good fit but needs to be replaced. Patient Education Compression Garments further discusssion options Self Manual Lymphatic Drainage reviewed technique with patient return demo PT-OP-T Assessment and Plan Start: 11/15/23 16:24 Freq: Status: Active Protocol: Document 11/17/23 16:25 SAK (Rec: 11/17/23 16:33 [facility] [id number]) Physical Therapy Assessment Goals Two Impairment lymphedema life impact scale 44% Short Term Goal (STG) decrease lymphedema life impact scale to no greater than 30% as measure of improved activity tolerance and quality of life STG Duration 01/01/24 Entry Level Automotive Technician Goal (LTG) Decrease lymphedema life impact scale to no greater than 20% as measure of improved activity tolerance and quality of life LTG Duration 02/15/24 One Impairment lymphedema left UE Short Term Goal (STG) Patient will be instructed in all aspects of lymphedema self -care to include skin care, elevation, self-massage, self- bandaging/compression options, and lymphedema exercises. STG Duration 01/01/24 Entry Level Automotive Technician Goal (LTG) Decrease patient?s lymphedema to a stable level (no increase or decrease greater than 1 cm over the course of 1 week), patient to be independent with all aspects of self-care for lymphedema, and will obtain appropriate compression garment for lymphedema management in the home, and sequential pneumatic pump to assist with self management in the home. Three Impairment left shoulder elevation limited to 113 degrees Impairment left shoulder elevation limited to 110 degrees Short Term Goal (STG) Patient to be instructed in HEP for purposes of addressing left UE ROM impairment STG Duration 01/01/24 Detention Goal (LTG) Patient to be independent and compliant with HEP and improve left shoulder elevation to at least 140 degrees for improved function and to facilitate lymphatic flow. LTG Duration 02/15/24 Physical Therapy Plan Frequency and Duration Frequency of Treatment 20 Duration of treatment (weeks) 12 Plan of Care Start Date 11/16/23 Plan of Care End Date 02/15/24 Therapeutic Interventions Therapeutic Interventions Home Exercise Program, Lymphedema Management,Manual Therapy,Patient/Caregiver Education,Self-Care/Home Management,Soft Tissue Mobilization,Taping, Therapeutic Activities, Therapeutic Exercises Modalities Vasopneumatic Devices Next Visit Focus/Plan Next Note Type Treatment Note Next Visit Plan Continue PT per POC with CDT. Speaking with [facility] regarding pump and garments.
--- NOTE | 2023-11-18 17:23 | PT.OTN ---
Current Diagnoses Lymphedema, not elsewhere classified (11/18/23) Edema, unspecified (11/18/23) Physical Therapy Treatment Note PT-OP-A Visit Information Start: 11/15/23 16:24 Freq: Status: Active Protocol: Document 11/18/23 13:01 SAK (Rec: 11/18/23 14:[address] [facility] [id number]) Out-Patient Physical Therapy Visit Information Visit Information Visit Type Treatment Note Visit Start Time 13:01 Visit Stop Time 14:30 Visit Number 3 Evaluation Information Evaluation Date 11/16/23 Precautions Precautions lymphoma PT-OP-B Current Condition Start: 11/15/23 16:24 Freq: Status: Active Protocol: Document 11/18/23 13:01 SAK (Rec: 11/18/23 14:[address] [facility] [id number]) Current Condition History of Current Condition Onset Date 2+ years Current Complaints lymphedema left UE History of Current Condition Previous treatment for lymphedema left UE with this PT, was discontinued due to insurance issues. Has velcro wrap compression wrap for left UE; hand and arm. Uses during the day and at night. Compression sleeves didn't work well for him, too difficult to don and doff and get to fit correctly, responded better to velcro wraps. Only has one compression garment due to cost, his has to help him get on correctly. Never got lymphedema pump. Was recently taken off a Cancer medication, discoloration that had been evident left UE has now disappeared. Is doing self massage, but not much exercise, states does a lot of sitting and is now noting left LE edema as well; wears knee high compression stockings that are too short, otherwise fit well. Feel he would benefit from thigh high compression on left. Has moderate knee pain bilaterally which limits his activity. PMH: lymphoma, TIA/CVA affecting left UE and LE, pacemaker. Reports he will be getting carpal tunnel surgery right hand. Prior Treatments and Tests CDT with this PT that was cut short due to insurance issues approximately 1 year ago. PT-OP-C Subjective Start: 11/15/23 16:24 Freq: Status: Active Protocol: Document 11/18/23 13:01 SAK (Rec: 11/18/23 14:[address] [facility] [id number]) OP-PT Subjective Patient Comments Patient Comments Wore bandaging last night though thumb and index finger slid off. Patient brings pictures of arm immediately after bandaging removed about 45 min ago, good reduction. present for PT PT-OP-H Neuro Start: 11/15/23 16:24 Freq: Status: Active Protocol: Document 11/16/23 13:[address] [facility] (Rec: 11/16/23 14:[address] [facility] [id number]) Sensation Evaluation Gross Sensation Gross Sensation Left UE Impaired PT-OP-J Posture/Palpation/Skin Start: 11/15/23 16:24 Freq: Status: Active Protocol: Document 11/16/23 13:[address] [facility] (Rec: 11/17/23 16:[address] [facility] [id number]) Posture Evaluation Position Sitting Head/C-Spine Posture Forward Head T-Spine Posture Increased Kyphosis Shoulder Posture (L) Rounded,(R) Rounded Scapula Posture (L) Protracted,(R) Protracted Arm Posture (L) Internally Rotated,(R) Internally Rotated Palpation Assessment Location left UE Palpation Findings Edema,Soft Tissue Tightness Palpation Details fibrosis left hand, wrist, forearm Skin Assessment Edema Assessment left UE Edema Type Pitting Edema Degree 4+ Edema Appearance Firm,Taut Subjective Edema Description Tightness PT-OP-K Range of Motion Start: 11/15/23 16:24 Freq: Status: Active Protocol: Document 11/16/23 13:[address] [facility] (Rec: 11/17/23 16:[address] [facility] [id number]) Shoulder Goniometric Range of Motion Shoulder Left Active Shoulder ROM WFL No Testing Position Sitting Flexion 105 Extension 20 Abduction 95 External Rotation at 45 degrees 35 Abduction Internal Rotation Behind Back (text) S1 Right Shoulder ROM WFL Yes Shoulder ROM Limitations Shoulder ROM Limitations Soft Tissue Tightness,Muscle Weakness,Swelling Elbow/Forearm Range of Motion Elbow/Forearm left Elbow Flexion (degrees) 130 Elbow Extension (degrees) 5 Elbow Hyperextension 90 Pronation (degrees) 65 right Elbow/Forearm ROM WFL Yes Wrist Goniometric Range of Motion Wrist Left Wrist ROM WFL No Flexion Active (degrees) 20 Flexion Passive (degrees) 35 Extension Active (degrees) 10 Extension Passive (degrees) 25 Right Wrist ROM WFL Yes ROM Limitations Wrist Limitations of Range of Motion Soft Tissue Tightness,Muscle Weakness,Swelling Finger Goniometric Range of Motion Finger ROM Limitations Finger ROM Limitations Soft Tissue Tightness,Swelling Comments unable to make full fist with fingers and thumb due to lymphedema PT-OP-L Special Tests Start: 11/15/23 16:24 Freq: Status: Active Protocol: Document 11/16/23 13:[address] [facility] (Rec: 11/17/23 16:[address] [facility] [id number]) Special Tests Other Special Tests Special Tests Stemmer sign positive for lymphedema PT-OP-N Lymphedema Start: 11/15/23 16:24 Freq: Status: Active Protocol: Document 11/18/23 13:[address] [facility] (Rec: 11/18/23 14:[address] [facility] [id number]) Lymphedema Measurements Upper Extremity Circumference Measurements Left Affected MCP 24.4 cm Dorsum of Hand 26.2 cm Wrist 24.2 cm 5 cm From Wrist Crease 26 cm 10 cm From Wrist Crease 29.2 cm 15 cm From Wrist Crease 33.9 cm 20 cm From Wrist Crease 38.8 cm 25 cm From Wrist Crease 41 cm 30 cm From Wrist Crease 40.3 cm 35 cm From Wrist Crease 43 cm 40 cm From Wrist Crease 45.5 cm 45 cm From Wrist Crease 47.8 cm Elbow Joint 40 cm PT-OP-Q Treatments Start: 11/15/23 16:24 Freq: Status: Active Protocol: Document 11/18/23 13:[address] [facility] (Rec: 11/18/23 14:[address] [facility] [id number]) Cardio Equipment Upper Body Ergometer (UBE) Duration (Minutes) 10 RPM 100 Seat Position 16 Height 4 Lymphedema Treatment Manual Lymphatic Drainage Duration 40 Comments sequential pneumatic pump at 30 mm Hg applied to left UE during measurement of right UE and patient education Lymphedema Wrapping Body Location left UE Materials Size F Tricofix, finger wraps, channel foam, Artiflex (3), Comprilan (6,8,10x2). Also jenkins foam dorsum of hand and at elbow crease Sequential Lymphedema Exercises Location Reviewed written handout with patient and stressing rationale and impo Compression Garment Assessment Compression Garment Assessment Details Patient has no daytime garments PT-OP-T Assessment and Plan Start: 11/15/23 16:24 Freq: Status: Active Protocol: Document 11/18/23 13:[address] [facility] (Rec: 11/18/23 14:[address] [facility] [id number]) Physical Therapy Assessment Goals Two Impairment lymphedema life impact scale 44% Short Term Goal (STG) decrease lymphedema life impact scale to no greater than 30% as measure of improved activity tolerance and quality of life STG Duration 01/01/24 Longterm Goal (LTG) Decrease lymphedema life impact scale to no greater than 20% as measure of improved activity tolerance and quality of life LTG Duration 02/15/24 One Impairment lymphedema left UE Short Term Goal (STG) Patient will be instructed in all aspects of lymphedema self -care to include skin care, elevation, self-massage, self- bandaging/compression options, and lymphedema exercises. STG Duration 01/01/24 Entry Level Manager Goal (LTG) Decrease patient?s lymphedema to a stable level (no increase or decrease greater than 1 cm over the course of 1 week), patient to be independent with all aspects of self-care for lymphedema, and will obtain appropriate compression garment for lymphedema management in the home, and sequential pneumatic pump to assist with self management in the home. Three Impairment left shoulder elevation limited to 113 degrees Impairment left shoulder elevation limited to 110 degrees Short Term Goal (STG) Patient to be instructed in HEP for purposes of addressing left UE ROM impairment STG Duration 01/01/24 Entry Level Manager Goal (LTG) Patient to be independent and compliant with HEP and improve left shoulder elevation to at least 140 degrees for improved function and to facilitate lymphatic flow. LTG Duration 02/15/24 Assessment Summary Assessment Notable improvement with treatment with decrease circumferential measurements entire left UE, channel foam effective though some irritation in elbow crease, use of jenkins foam for padding in elbow crease. Improved soft tissue mobility in forearm, significant fibrosis still present at wrist and dorsum of hand; jenkins foam also put under bandaging over dorsum of hand. Physical Therapy Plan Frequency and Duration Frequency of Treatment 20 Duration of treatment (weeks) 12 Plan of Care Start Date 11/16/23 Plan of Care End Date 02/15/24 Therapeutic Interventions Therapeutic Interventions Home Exercise Program, Lymphedema Management,Manual Therapy,Patient/Caregiver Education,Self-Care/Home Management,Soft Tissue Mobilization,Taping, Therapeutic Activities, Therapeutic Exercises Modalities Vasopneumatic Devices Next Visit Focus/Plan Next Note Type Treatment Note Next Visit Plan Continue PT per POC with CDT. Send initial evaluation report to [facility] to assist with obtaining sequential pneumatic pump for patient.
--- NOTE | 2023-11-19 14:29 | PT.OTN ---
Current Diagnoses Lymphedema, not elsewhere classified (11/19/23) Edema, unspecified (11/19/23) Physical Therapy Treatment Note PT-OP-A Visit Information Start: 11/15/23 16:24 Freq: Status: Active Protocol: Document 11/19/23 13:00 [facility]AK (Rec: 11/19/23 14:28 [facility] [id number]) Out-Patient Physical Therapy Visit Information Visit Information Visit Type Treatment Note Visit Start Time 13:01 Visit Stop Time 14:30 Visit Number 4 Evaluation Information Evaluation Date 11/16/23 Precautions Precautions lymphoma PT-OP-B Current Condition Start: 11/15/23 16:24 Freq: Status: Active Protocol: Document 11/19/23 13:00 SAK (Rec: 11/19/23 14:28 [facility] [id number]) Current Condition History of Current Condition Onset Date 2+ years Current Complaints lymphedema left UE History of Current Condition Previous treatment for lymphedema left UE with this PT, was discontinued due to insurance issues. Has velcro wrap compression wrap for left UE; hand and arm. Uses during the day and at night. Compression sleeves didn't work well for him, too difficult to don and doff and get to fit correctly, responded better to velcro wraps. Only has one compression garment due to cost, his has to help him get on correctly. Never got lymphedema pump. Was recently taken off a Cancer medication, discoloration that had been evident left UE has now disappeared. Is doing self massage, but not much exercise, states does a lot of sitting and is now noting left LE edema as well; wears knee high compression stockings that are too short, otherwise fit well. Feel he would benefit from thigh high compression on left. Has moderate knee pain bilaterally which limits his activity. PMH: lymphoma, TIA/CVA affecting left UE and LE, pacemaker. Reports he will be getting carpal tunnel surgery right hand. Prior Treatments and Tests CDT with this PT that was cut short due to insurance issues approximately 1 year ago. PT-OP-C Subjective Start: 11/15/23 16:24 Freq: Status: Active Protocol: Document 11/19/23 13:00 SAK (Rec: 11/19/23 14:28 [facility] [id number]) OP-PT Subjective Patient Comments Patient Comments All bandaging stayed on, able to leave on until PT, pleased with how it stayed on and how arm looked upon removing. PT-OP-H Neuro Start: 11/15/23 16:24 Freq: Status: Active Protocol: Document 11/16/23 13:22 [facility] (Rec: 11/16/23 14:32 [facility] [id number]) Sensation Evaluation Gross Sensation Gross Sensation Left UE Impaired PT-OP-J Posture/Palpation/Skin Start: 11/15/23 16:24 Freq: Status: Active Protocol: Document 11/16/23 13:22 [facility] (Rec: 11/17/23 16:01 [facility] [id number]) Posture Evaluation Position Sitting Head/C-Spine Posture Forward Head T-Spine Posture Increased Kyphosis Shoulder Posture (L) Rounded,(R) Rounded Scapula Posture (L) Protracted,(R) Protracted Arm Posture (L) Internally Rotated,(R) Internally Rotated Palpation Assessment Location left UE Palpation Findings Edema,Soft Tissue Tightness Palpation Details fibrosis left hand, wrist, forearm Skin Assessment Edema Assessment left UE Edema Type Pitting Edema Degree 4+ Edema Appearance Firm,Taut Subjective Edema Description Tightness PT-OP-K Range of Motion Start: 11/15/23 16:24 Freq: Status: Active Protocol: Document 11/16/23 13:22 [facility] (Rec: 11/17/23 16:01 [facility] [id number]) Shoulder Goniometric Range of Motion Shoulder Left Active Shoulder ROM WFL No Testing Position Sitting Flexion 105 Extension 20 Abduction 95 External Rotation at 45 degrees 35 Abduction Internal Rotation Behind Back (text) S1 Right Shoulder ROM WFL Yes Shoulder ROM Limitations Shoulder ROM Limitations Soft Tissue Tightness,Muscle Weakness,Swelling Elbow/Forearm Range of Motion Elbow/Forearm left Elbow Flexion (degrees) 130 Elbow Extension (degrees) 5 Elbow Hyperextension 90 Pronation (degrees) 65 right Elbow/Forearm ROM WFL Yes Wrist Goniometric Range of Motion Wrist Left Wrist ROM WFL No Flexion Active (degrees) 20 Flexion Passive (degrees) 35 Extension Active (degrees) 10 Extension Passive (degrees) 25 Right Wrist ROM WFL Yes ROM Limitations Wrist Limitations of Range of Motion Soft Tissue Tightness,Muscle Weakness,Swelling Finger Goniometric Range of Motion Finger ROM Limitations Finger ROM Limitations Soft Tissue Tightness,Swelling Comments unable to make full fist with fingers and thumb due to lymphedema PT-OP-L Special Tests Start: 11/15/23 16:24 Freq: Status: Active Protocol: Document 11/16/23 13:22 [facility] (Rec: 11/17/23 16:01 [facility] [id number]) Special Tests Other Special Tests Special Tests Stemmer sign positive for lymphedema PT-OP-N Lymphedema Start: 11/15/23 16:24 Freq: Status: Active Protocol: Document 11/19/23 13:00 [facility] (Rec: 11/19/23 14:28 [facility] [id number]) Lymphedema Measurements Upper Extremity Circumference Measurements Left Affected MCP 24.3 cm Dorsum of Hand 26.1 cm Wrist 23.8 cm 5 cm From Wrist Crease 25.2 cm 10 cm From Wrist Crease 28 cm 15 cm From Wrist Crease 33.3 cm 20 cm From Wrist Crease 37.8 cm 25 cm From Wrist Crease 39.8 cm 30 cm From Wrist Crease 39.8 cm 35 cm From Wrist Crease 42.7 cm 40 cm From Wrist Crease 45.6 cm 45 cm From Wrist Crease 47.7 cm Elbow Joint 39.8 cm PT-OP-Q Treatments Start: 11/15/23 16:24 Freq: Status: Active Protocol: Document 11/19/23 13:00 [facility] (Rec: 11/19/23 14:28 [facility] [id number]) Cardio Equipment Upper Body Ergometer (UBE) Duration (Minutes) 10 RPM 100 Seat Position 16 Height 4 Lymphedema Treatment Manual Lymphatic Drainage Duration 40 Comments sequential pneumatic pump at 30 mm Hg applied to left UE during measurement of right UE and patient education Lymphedema Wrapping Body Location left UE Materials Size F Tricofix, finger wraps, channel foam, Artiflex (3), Comprilan (6,8,10x2). Also jenkins foam dorsum of hand and at elbow crease Sequential Lymphedema Exercises Location supine per handout Compression Garment Assessment Compression Garment Assessment Details Patient has no daytime garments Other Other soft tissue mobilization of areas of tissue fibrosis in hand and forearm. PT-OP-T Assessment and Plan Start: 11/15/23 16:24 Freq: Status: Active Protocol: Document 11/19/23 13:00 [facility] (Rec: 11/19/23 14:28 [facility] [id number]) Physical Therapy Assessment Goals Two Impairment lymphedema life impact scale 44% Short Term Goal (STG) decrease lymphedema life impact scale to no greater than 30% as measure of improved activity tolerance and quality of life STG Duration 01/01/24 Group Home Goal (LTG) Decrease lymphedema life impact scale to no greater than 20% as measure of improved activity tolerance and quality of life LTG Duration 02/15/24 One Impairment lymphedema left UE Short Term Goal (STG) Patient will be instructed in all aspects of lymphedema self -care to include skin care, elevation, self-massage, self- bandaging/compression options, and lymphedema exercises. STG Duration 01/01/24 Group Home Goal (LTG) Decrease patient?s lymphedema to a stable level (no increase or decrease greater than 1 cm over the course of 1 week), patient to be independent with all aspects of self-care for lymphedema, and will obtain appropriate compression garment for lymphedema management in the home, and sequential pneumatic pump to assist with self management in the home. Three Impairment left shoulder elevation limited to 113 degrees Impairment left shoulder elevation limited to 110 degrees Short Term Goal (STG) Patient to be instructed in HEP for purposes of addressing left UE ROM impairment STG Duration 01/01/24 Group Home Goal (LTG) Patient to be independent and compliant with HEP and improve left shoulder elevation to at least 140 degrees for improved function and to facilitate lymphatic flow. LTG Duration 02/15/24 Assessment Summary Assessment Good reduction in circumferential measurements left UE. Advised patient to make appointment with [facility] for next Thursday after 1 further week of CDT. Recommending velcro compression wraps for daytime and nighttime. Physical Therapy Plan Frequency and Duration Frequency of Treatment 20 Duration of treatment (weeks) 12 Plan of Care Start Date 11/16/23 Plan of Care End Date 02/15/24 Therapeutic Interventions Therapeutic Interventions Home Exercise Program, Lymphedema Management,Manual Therapy,Patient/Caregiver Education,Self-Care/Home Management,Soft Tissue Mobilization,Taping, Therapeutic Activities, Therapeutic Exercises Modalities Vasopneumatic Devices Next Visit Focus/Plan Next Note Type Treatment Note Next Visit Plan Continue CDT, Patient to make appointment with [facility] for the end of next week for garment consultation.
--- NOTE | 2023-11-23 13:50 | PT.OTN ---
Current Diagnoses Lymphedema, not elsewhere classified (11/23/23) Edema, unspecified (11/23/23) Physical Therapy Treatment Note PT-OP-A Visit Information Start: 11/15/23 16:24 Freq: Status: Active Protocol: Document 11/23/23 12:59 [facility] (Rec: 11/23/23 13:17 [facility] [id number]) Out-Patient Physical Therapy Visit Information Visit Information Visit Type Treatment Note Visit Start Time 13:00 Evaluation Information Evaluation Date 11/16/23 Precautions Precautions lymphoma PT-OP-B Current Condition Start: 11/15/23 16:24 Freq: Status: Active Protocol: Document 11/23/23 12:59 [facility] (Rec: 11/23/23 13:17 [facility] [id number]) Current Condition History of Current Condition Onset Date 2+ years Current Complaints lymphedema left UE History of Current Condition Previous treatment for lymphedema left UE with this PT, was discontinued due to insurance issues. Has velcro wrap compression wrap for left UE; hand and arm. Uses during the day and at night. Compression sleeves didn't work well for him, too difficult to don and doff and get to fit correctly, responded better to velcro wraps. Only has one compression garment due to cost, his has to help him get on correctly. Never got lymphedema pump. Was recently taken off a Cancer medication, discoloration that had been evident left UE has now disappeared. Is doing self massage, but not much exercise, states does a lot of sitting and is now noting left LE edema as well; wears knee high compression stockings that are too short, otherwise fit well. Feel he would benefit from thigh high compression on left. Has moderate knee pain bilaterally which limits his activity. PMH: lymphoma, TIA/CVA affecting left UE and LE, pacemaker. Reports he will be getting carpal tunnel surgery right hand. Prior Treatments and Tests CDT with this PT that was cut short due to insurance issues approximately 1 year ago. PT-OP-C Subjective Start: 11/15/23 16:24 Freq: Status: Active Protocol: Document 11/23/23 12:59 [facility] (Rec: 11/23/23 13:17 [facility] [id number]) OP-PT Subjective Patient Comments Patient Comments Was able to leave bandaging on partway through the night; took it off at 3 am. Has been wearing night garment, tried bandaging but didn't feel very effective. Likely more swollen today. Has appointment with [facility] this Thursday. PT-OP-H Neuro Start: 11/15/23 16:24 Freq: Status: Active Protocol: Document 11/16/23 13:22 [facility] (Rec: 11/16/23 14:32 [facility] [id number]) Sensation Evaluation Gross Sensation Gross Sensation Left UE Impaired PT-OP-J Posture/Palpation/Skin Start: 11/15/23 16:24 Freq: Status: Active Protocol: Document 11/16/23 13:22 [facility] (Rec: 11/17/23 16:01 [facility] [id number]) Posture Evaluation Position Sitting Head/C-Spine Posture Forward Head T-Spine Posture Increased Kyphosis Shoulder Posture (L) Rounded,(R) Rounded Scapula Posture (L) Protracted,(R) Protracted Arm Posture (L) Internally Rotated,(R) Internally Rotated Palpation Assessment Location left UE Palpation Findings Edema,Soft Tissue Tightness Palpation Details fibrosis left hand, wrist, forearm Skin Assessment Edema Assessment left UE Edema Type Pitting Edema Degree 4+ Edema Appearance Firm,Taut Subjective Edema Description Tightness PT-OP-K Range of Motion Start: 11/15/23 16:24 Freq: Status: Active Protocol: Document 11/16/23 13:22 [facility] (Rec: 11/17/23 16:01 [facility] [id number]) Shoulder Goniometric Range of Motion Shoulder Left Active Shoulder ROM WFL No Testing Position Sitting Flexion 105 Extension 20 Abduction 95 External Rotation at 45 degrees 35 Abduction Internal Rotation Behind Back (text) S1 Right Shoulder ROM WFL Yes Shoulder ROM Limitations Shoulder ROM Limitations Soft Tissue Tightness,Muscle Weakness,Swelling Elbow/Forearm Range of Motion Elbow/Forearm left Elbow Flexion (degrees) 130 Elbow Extension (degrees) 5 Elbow Hyperextension 90 Pronation (degrees) 65 right Elbow/Forearm ROM WFL Yes Wrist Goniometric Range of Motion Wrist Left Wrist ROM WFL No Flexion Active (degrees) 20 Flexion Passive (degrees) 35 Extension Active (degrees) 10 Extension Passive (degrees) 25 Right Wrist ROM WFL Yes ROM Limitations Wrist Limitations of Range of Motion Soft Tissue Tightness,Muscle Weakness,Swelling Finger Goniometric Range of Motion Finger ROM Limitations Finger ROM Limitations Soft Tissue Tightness,Swelling Comments unable to make full fist with fingers and thumb due to lymphedema PT-OP-L Special Tests Start: 11/15/23 16:24 Freq: Status: Active Protocol: Document 11/16/23 13:22 [facility] (Rec: 11/17/23 16:01 [facility] [id number]) Special Tests Other Special Tests Special Tests Stemmer sign positive for lymphedema PT-OP-N Lymphedema Start: 11/15/23 16:24 Freq: Status: Active Protocol: Document 11/23/23 12:59 [facility] (Rec: 11/23/23 13:17 [facility] [id number]) Lymphedema Measurements Upper Extremity Circumference Measurements Left Affected MCP 24.9 cm Dorsum of Hand 25.8 cm Wrist 25.3 cm 5 cm From Wrist Crease 27.7 cm 10 cm From Wrist Crease 31 cm 15 cm From Wrist Crease 36.5 cm 20 cm From Wrist Crease 41.8 cm 25 cm From Wrist Crease 42.2 cm 30 cm From Wrist Crease 41.8 cm 35 cm From Wrist Crease 43.4 cm 40 cm From Wrist Crease 46.1 cm 45 cm From Wrist Crease 47.7 cm Elbow Joint 42 cm PT-OP-Q Treatments Start: 11/15/23 16:24 Freq: Status: Active Protocol: Document 11/23/23 12:59 [facility] (Rec: 11/23/23 13:17 [facility] [id number]) Cardio Equipment Upper Body Ergometer (UBE) Duration (Minutes) 10 RPM 100 Seat Position 16 Height 4 Lymphedema Treatment Manual Lymphatic Drainage Duration 40 Comments sequential pneumatic pump at 30 mm Hg applied to left UE during measurement of right UE and patient education Lymphedema Wrapping Body Location left UE Materials Size F Tricofix, finger wraps, channel foam, Artiflex (3), Comprilan (6,8,10x2). Also jenkins foam dorsum of hand and at elbow crease Sequential Lymphedema Exercises Location supine per handout plus circles, manual stretching Other Other soft tissue mobilization of areas of tissue fibrosis in hand and forearm. PT-OP-R Modalities Start: 11/15/23 16:24 Freq: Status: Active Protocol: Document 11/23/23 13:01 [facility] (Rec: 11/23/23 13:50 [facility] [id number]) Compression Pump Treatment Treatment Location Left Arm Pressure Amount (mmHg) (mmHG) 40 Inflation Time (Seconds) 30 Deflation Time (Seconds) 10 Treatment Tolerance Good PT-OP-T Assessment and Plan Start: 11/15/23 16:24 Freq: Status: Active Protocol: Document 11/23/23 12:59 [facility] (Rec: 11/23/23 13:17 [facility] [id number]) Physical Therapy Assessment Goals Two Impairment lymphedema life impact scale 44% Short Term Goal (STG) decrease lymphedema life impact scale to no greater than 30% as measure of improved activity tolerance and quality of life STG Duration 01/01/24 Traffic Director Goal (LTG) Decrease lymphedema life impact scale to no greater than 20% as measure of improved activity tolerance and quality of life LTG Duration 02/15/24 One Impairment lymphedema left UE Short Term Goal (STG) Patient will be instructed in all aspects of lymphedema self -care to include skin care, elevation, self-massage, self- bandaging/compression options, and lymphedema exercises. STG Duration 01/01/24 Alf Goal (LTG) Decrease patient?s lymphedema to a stable level (no increase or decrease greater than 1 cm over the course of 1 week), patient to be independent with all aspects of self-care for lymphedema, and will obtain appropriate compression garment for lymphedema management in the home, and sequential pneumatic pump to assist with self management in the home. Three Impairment left shoulder elevation limited to 113 degrees Impairment left shoulder elevation limited to 110 degrees Short Term Goal (STG) Patient to be instructed in HEP for purposes of addressing left UE ROM impairment STG Duration 01/01/24 Traffic Director Goal (LTG) Patient to be independent and compliant with HEP and improve left shoulder elevation to at least 140 degrees for improved function and to facilitate lymphatic flow. LTG Duration 02/15/24 Assessment Summary Assessment Patient circumferential measurements increased today, has not had adequate compression during the day and has had difficulty tolerating night garments. Patient has not been bandaged since last seen. Importance of consistent compression stressed, wear night garment during the day if not able to do anything else. Physical Therapy Plan Frequency and Duration Frequency of Treatment 20 Duration of treatment (weeks) 12 Plan of Care Start Date 11/16/23 Plan of Care End Date 02/15/24 Therapeutic Interventions Therapeutic Interventions Home Exercise Program, Lymphedema Management,Manual Therapy,Patient/Caregiver Education,Self-Care/Home Management,Soft Tissue Mobilization,Taping, Therapeutic Activities, Therapeutic Exercises Modalities Vasopneumatic Devices Next Visit Focus/Plan Next Note Type Treatment Note Next Visit Plan Continue CDT to reduce as much as possible prior to appointment with rafater this Thursday.
--- NOTE | 2023-11-24 14:04 | PT.OTN ---
Current Diagnoses Lymphedema, not elsewhere classified (11/24/23) Edema, unspecified (11/24/23) Physical Therapy Treatment Note PT-OP-A Visit Information Start: 11/15/23 16:24 Freq: Status: Active Protocol: Document 11/24/23 13:00 SAK (Rec: 11/24/23 14:03 SAK [id number]) Out-Patient Physical Therapy Visit Information Visit Information Visit Type Treatment Note Visit Start Time 13:02 Visit Stop Time 14:30 Visit Number 88 Evaluation Information Evaluation Date 11/16/23 Precautions Precautions lymphoma PT-OP-B Current Condition Start: 11/15/23 16:24 Freq: Status: Active Protocol: Document 11/24/23 13:00 SAK (Rec: 11/24/23 14:03 SAK [id number]) Current Condition History of Current Condition Onset Date 2+ years Current Complaints lymphedema left UE History of Current Condition Previous treatment for lymphedema left UE with this PT, was discontinued due to insurance issues. Has velcro wrap compression wrap for left UE; hand and arm. Uses during the day and at night. Compression sleeves didn't work well for him, too difficult to don and doff and get to fit correctly, responded better to velcro wraps. Only has one compression garment due to cost, his has to help him get on correctly. Never got lymphedema pump. Was recently taken off a Cancer medication, discoloration that had been evident left UE has now disappeared. Is doing self massage, but not much exercise, states does a lot of sitting and is now noting left LE edema as well; wears knee high compression stockings that are too short, otherwise fit well. Feel he would benefit from thigh high compression on left. Has moderate knee pain bilaterally which limits his activity. PMH: lymphoma, TIA/CVA affecting left UE and LE, pacemaker. Reports he will be getting carpal tunnel surgery right hand. Prior Treatments and Tests CDT with this PT that was cut short due to insurance issues approximately 1 year ago. PT-OP-C Subjective Start: 11/15/23 16:24 Freq: Status: Active Protocol: Document 11/24/23 13:00 SAK (Rec: 11/24/23 14:03 SAK [id number]) OP-PT Subjective Patient Comments Patient Comments Patient able to leave bandaging on all night, stayed intact except for upper bandage and thumb bandaging loosened. PT-OP-H Neuro Start: 11/15/23 16:24 Freq: Status: Active Protocol: Document 11/16/23 13:22 [facility] (Rec: 11/16/23 14:32 [facility] [id number]) Sensation Evaluation Gross Sensation Gross Sensation Left UE Impaired PT-OP-J Posture/Palpation/Skin Start: 11/15/23 16:24 Freq: Status: Active Protocol: Document 11/16/23 13:22 [facility] (Rec: 11/17/23 16:01 [facility] [id number]) Posture Evaluation Position Sitting Head/C-Spine Posture Forward Head T-Spine Posture Increased Kyphosis Shoulder Posture (L) Rounded,(R) Rounded Scapula Posture (L) Protracted,(R) Protracted Arm Posture (L) Internally Rotated,(R) Internally Rotated Palpation Assessment Location left UE Palpation Findings Edema,Soft Tissue Tightness Palpation Details fibrosis left hand, wrist, forearm Skin Assessment Edema Assessment left UE Edema Type Pitting Edema Degree 4+ Edema Appearance Firm,Taut Subjective Edema Description Tightness PT-OP-K Range of Motion Start: 11/15/23 16:24 Freq: Status: Active Protocol: Document 11/16/23 13:22 [facility] (Rec: 11/17/23 16:01 [facility] [id number]) Shoulder Goniometric Range of Motion Shoulder Left Active Shoulder ROM WFL No Testing Position Sitting Flexion 105 Extension 20 Abduction 95 External Rotation at 45 degrees 35 Abduction Internal Rotation Behind Back (text) S1 Right Shoulder ROM WFL Yes Shoulder ROM Limitations Shoulder ROM Limitations Soft Tissue Tightness,Muscle Weakness,Swelling Elbow/Forearm Range of Motion Elbow/Forearm left Elbow Flexion (degrees) 130 Elbow Extension (degrees) 5 Elbow Hyperextension 90 Pronation (degrees) 65 right Elbow/Forearm ROM WFL Yes Wrist Goniometric Range of Motion Wrist Left Wrist ROM WFL No Flexion Active (degrees) 20 Flexion Passive (degrees) 35 Extension Active (degrees) 10 Extension Passive (degrees) 25 Right Wrist ROM WFL Yes ROM Limitations Wrist Limitations of Range of Motion Soft Tissue Tightness,Muscle Weakness,Swelling Finger Goniometric Range of Motion Finger ROM Limitations Finger ROM Limitations Soft Tissue Tightness,Swelling Comments unable to make full fist with fingers and thumb due to lymphedema PT-OP-L Special Tests Start: 11/15/23 16:24 Freq: Status: Active Protocol: Document 11/16/23 13:22 [facility] (Rec: 11/17/23 16:01 [facility] [id number]) Special Tests Other Special Tests Special Tests Stemmer sign positive for lymphedema PT-OP-N Lymphedema Start: 11/15/23 16:24 Freq: Status: Active Protocol: Document 11/24/23 13:00 [facility] (Rec: 11/24/23 14:03 [facility] [id number]) Lymphedema Measurements Upper Extremity Circumference Measurements Left Affected MCP 24.3 cm Dorsum of Hand 26.2 cm Wrist 24 cm 5 cm From Wrist Crease 25.3 cm 10 cm From Wrist Crease 29.7 cm 15 cm From Wrist Crease 35.4 cm 20 cm From Wrist Crease 37.9 cm 25 cm From Wrist Crease 40 cm 30 cm From Wrist Crease 40.2 cm 35 cm From Wrist Crease 42.8 cm 40 cm From Wrist Crease 44.9 cm 45 cm From Wrist Crease 46.7 cm Elbow Joint 40.7 cm PT-OP-Q Treatments Start: 11/15/23 16:24 Freq: Status: Active Protocol: Document 11/24/23 13:00 [facility] (Rec: 11/24/23 14:03 [facility] [id number]) Lymphedema Treatment Manual Lymphatic Drainage Location left UE Duration 40 Lymphedema Wrapping Body Location left UE Materials Size F Tricofix, finger wraps, channel foam, Artiflex (3), Comprilan (6,8,10x3). Also jenkins foam dorsum of hand and at elbow crease Sequential Lymphedema Exercises Location supine per handout plus circles, manual stretching Other Other soft tissue mobilization of areas of tissue fibrosis in hand and forearm. PT-OP-R Modalities Start: 11/15/23 16:24 Freq: Status: Active Protocol: Document 11/24/23 13:00 SAK (Rec: 11/24/23 14:04 [facility] [id number]) Compression Pump Treatment Treatment Location Left Arm Pressure Amount (mmHg) (mmHG) 40 Inflation Time (Seconds) 30 Deflation Time (Seconds) 10 Treatment Tolerance Good PT-OP-T Assessment and Plan Start: 11/15/23 16:24 Freq: Status: Active Protocol: Document 11/24/23 13:00 SAK (Rec: 11/24/23 14:03 [facility] [id number]) Physical Therapy Assessment Goals Two Impairment lymphedema life impact scale 44% Short Term Goal (STG) decrease lymphedema life impact scale to no greater than 30% as measure of improved activity tolerance and quality of life STG Duration 01/01/24 Deckhand Oyster Dredge Goal (LTG) Decrease lymphedema life impact scale to no greater than 20% as measure of improved activity tolerance and quality of life LTG Duration 02/15/24 One Impairment lymphedema left UE Short Term Goal (STG) Patient will be instructed in all aspects of lymphedema self -care to include skin care, elevation, self-massage, self- bandaging/compression options, and lymphedema exercises. STG Duration 01/01/24 Deckhand O[employer] Dredge Goal (LTG) Decrease patient?s lymphedema to a stable level (no increase or decrease greater than 1 cm over the course of 1 week), patient to be independent with all aspects of self-care for lymphedema, and will obtain appropriate compression garment for lymphedema management in the home, and sequential pneumatic pump to assist with self management in the home. Three Impairment left shoulder elevation limited to 113 degrees Impairment left shoulder elevation limited to 110 degrees Short Term Goal (STG) Patient to be instructed in HEP for purposes of addressing left UE ROM impairment STG Duration 01/01/24 Deckhand Oyster Dredge Goal (LTG) Patient to be independent and compliant with HEP and improve left shoulder elevation to at least 140 degrees for improved function and to facilitate lymphatic flow. LTG Duration 02/15/24 Assessment Summary Assessment Good decrease in circumferential measurements throughout left UE, good response to treatment. Physical Therapy Plan Frequency and Duration Frequency of Treatment 20 Duration of treatment (weeks) 12 Plan of Care Start Date 11/16/23 Plan of Care End Date 02/15/24 Therapeutic Interventions Therapeutic Interventions Home Exercise Program, Lymphedema Management,Manual Therapy,Patient/Caregiver Education,Self-Care/Home Management,Soft Tissue Mobilization,Taping, Therapeutic Activities, Therapeutic Exercises Modalities Vasopneumatic Devices Next Visit Focus/Plan Next Note Type Treatment Note Next Visit Plan Continue CDT to reduce as much as possible prior to appointment with rafater this Thursday. Continue to stress importance of compliance to HEP, self massage proximal while bandaging on
--- NOTE | 2023-11-25 13:45 | PT.OTN ---
Current Diagnoses Lymphedema, not elsewhere classified (11/25/23) Edema, unspecified (11/25/23) Physical Therapy Treatment Note PT-OP-A Visit Information Start: 11/15/23 16:24 Freq: Status: Active Protocol: Document 11/25/23 12:57 SAK (Rec: 11/25/23 13:44 [facility] [id number]) Out-Patient Physical Therapy Visit Information Visit Information Visit Type Treatment Note Visit Start Time 13:02 Visit Stop Time 14:30 Visit Number 7 Evaluation Information Evaluation Date 11/16/23 Precautions Precautions lymphoma PT-OP-B Current Condition Start: 11/15/23 16:24 Freq: Status: Active Protocol: Document 11/25/23 12:57 SAK (Rec: 11/25/23 13:44 [facility] [id number]) Current Condition History of Current Condition Onset Date 2+ years Current Complaints lymphedema left UE History of Current Condition Previous treatment for lymphedema left UE with this PT, was discontinued due to insurance issues. Has velcro wrap compression wrap for left UE; hand and arm. Uses during the day and at night. Compression sleeves didn't work well for him, too difficult to don and doff and get to fit correctly, responded better to velcro wraps. Only has one compression garment due to cost, his has to help him get on correctly. Never got lymphedema pump. Was recently taken off a Cancer medication, discoloration that had been evident left UE has now disappeared. Is doing self massage, but not much exercise, states does a lot of sitting and is now noting left LE edema as well; wears knee high compression stockings that are too short, otherwise fit well. Feel he would benefit from thigh high compression on left. Has moderate knee pain bilaterally which limits his activity. PMH: lymphoma, TIA/CVA affecting left UE and LE, pacemaker. Reports he will be getting carpal tunnel surgery right hand. Prior Treatments and Tests CDT with this PT that was cut short due to insurance issues approximately 1 year ago. PT-OP-C Subjective Start: 11/15/23 16:24 Freq: Status: Active Protocol: Document 11/25/23 12:57 SAK (Rec: 11/25/23 13:44 SAK [id number]) OP-PT Subjective Patient Comments Patient Comments Patient reports he had to remove bandaging 4:30 am, not sure why, just found himself ripping it off, has worn velcro wrap left arm since then, nothing on his hand. PT-OP-H Neuro Start: 11/15/23 16:24 Freq: Status: Active Protocol: Document 11/16/23 13:22 [facility] (Rec: 11/16/23 14:32 [facility] [id number]) Sensation Evaluation Gross Sensation Gross Sensation Left UE Impaired PT-OP-J Posture/Palpation/Skin Start: 11/15/23 16:24 Freq: Status: Active Protocol: Document 11/16/23 13:22 [facility] (Rec: 11/17/23 16:01 [facility] [id number]) Posture Evaluation Position Sitting Head/C-Spine Posture Forward Head T-Spine Posture Increased Kyphosis Shoulder Posture (L) Rounded,(R) Rounded Scapula Posture (L) Protracted,(R) Protracted Arm Posture (L) Internally Rotated,(R) Internally Rotated Palpation Assessment Location left UE Palpation Findings Edema,Soft Tissue Tightness Palpation Details fibrosis left hand, wrist, forearm Skin Assessment Edema Assessment left UE Edema Type Pitting Edema Degree 4+ Edema Appearance Firm,Taut Subjective Edema Description Tightness PT-OP-K Range of Motion Start: 11/15/23 16:24 Freq: Status: Active Protocol: Document 11/16/23 13:22 [facility] (Rec: 11/17/23 16:01 [facility] [id number]) Shoulder Goniometric Range of Motion Shoulder Left Active Shoulder ROM WFL No Testing Position Sitting Flexion 105 Extension 20 Abduction 95 External Rotation at 45 degrees 35 Abduction Internal Rotation Behind Back (text) S1 Right Shoulder ROM WFL Yes Shoulder ROM Limitations Shoulder ROM Limitations Soft Tissue Tightness,Muscle Weakness,Swelling Elbow/Forearm Range of Motion Elbow/Forearm left Elbow Flexion (degrees) 130 Elbow Extension (degrees) 5 Elbow Hyperextension 90 Pronation (degrees) 65 right Elbow/Forearm ROM WFL Yes Wrist Goniometric Range of Motion Wrist Left Wrist ROM WFL No Flexion Active (degrees) 20 Flexion Passive (degrees) 35 Extension Active (degrees) 10 Extension Passive (degrees) 25 Right Wrist ROM WFL Yes ROM Limitations Wrist Limitations of Range of Motion Soft Tissue Tightness,Muscle Weakness,Swelling Finger Goniometric Range of Motion Finger ROM Limitations Finger ROM Limitations Soft Tissue Tightness,Swelling Comments unable to make full fist with fingers and thumb due to lymphedema PT-OP-L Special Tests Start: 11/15/23 16:24 Freq: Status: Active Protocol: Document 11/16/23 13:22 [facility]AK (Rec: 11/17/23 16:01 SAK [id number]) Special Tests Other Special Tests Special Tests Stemmer sign positive for lymphedema PT-OP-N Lymphedema Start: 11/15/23 16:24 Freq: Status: Active Protocol: Document 11/25/23 12:57 SAK (Rec: 11/25/23 13:44 SAK [id number]) Lymphedema Measurements Upper Extremity Circumference Measurements Left Affected MCP 24.4 cm Dorsum of Hand 26.8 cm Wrist 24.8 cm 5 cm From Wrist Crease 26.5 cm 10 cm From Wrist Crease 29.9 cm 15 cm From Wrist Crease 35.3 cm 20 cm From Wrist Crease 39.5 cm 25 cm From Wrist Crease 40.4 cm 30 cm From Wrist Crease 40.2 cm 35 cm From Wrist Crease 42.7 cm 40 cm From Wrist Crease 45.6 cm 45 cm From Wrist Crease 47.5 cm Elbow Joint 41 cm PT-OP-Q Treatments Start: 11/15/23 16:24 Freq: Status: Active Protocol: Document 11/25/23 12:57 SAK (Rec: 11/25/23 13:44 [facility] [id number]) Therapeutic Exercises Sidelying Exercises ARM CIRCLES Reps/Minutes 5X EA DIRECTION OPEN BOOK Reps/Minutes 5X Lymphedema Treatment Manual Lymphatic Drainage Location left UE Duration 40 Lymphedema Wrapping Body Location left UE Materials Size F Tricofix, finger wraps, channel foam, Artiflex (3), Comprilan (6,8,10x3). Also jenkins foam dorsum of hand and at elbow crease Sequential Lymphedema Exercises Location sidelying and supine Patient Education Other Continue to stress importance of consistent compression, don 't leave it off his hand for as long as he did Other Other soft tissue mobilization of areas of tissue fibrosis in hand and forearm. PT-OP-R Modalities Start: 11/15/23 16:24 Freq: Status: Active Protocol: Document 11/25/23 12:57 SAK (Rec: 11/25/23 13:45 SAK [id number]) Compression Pump Treatment Treatment Location Left Arm Pressure Amount (mmHg) (mmHG) 40 Inflation Time (Seconds) 30 Deflation Time (Seconds) 10 Treatment Tolerance Good PT-OP-T Assessment and Plan Start: 11/15/23 16:24 Freq: Status: Active Protocol: Document 11/25/23 12:57 [facility] (Rec: 11/25/23 13:44 [facility] [id number]) Physical Therapy Assessment Goals Two Impairment lymphedema life impact scale 44% Short Term Goal (STG) decrease lymphedema life impact scale to no greater than 30% as measure of improved activity tolerance and quality of life STG Duration 01/01/24 [employer] Helper Goal (LTG) Decrease lymphedema life impact scale to no greater than 20% as measure of improved activity tolerance and quality of life LTG Duration 02/15/24 One Impairment lymphedema left UE Short Term Goal (STG) Patient will be instructed in all aspects of lymphedema self -care to include skin care, elevation, self-massage, self- bandaging/compression options, and lymphedema exercises. STG Duration 01/01/24 Stitch [employer] Machine Operator Helper Goal (LTG) Decrease patient?s lymphedema to a stable level (no increase or decrease greater than 1 cm over the course of 1 week), patient to be independent with all aspects of self-care for lymphedema, and will obtain appropriate compression garment for lymphedema management in the home, and sequential pneumatic pump to assist with self management in the home. Three Impairment left shoulder elevation limited to 113 degrees Impairment left shoulder elevation limited to 110 degrees Short Term Goal (STG) Patient to be instructed in HEP for purposes of addressing left UE ROM impairment STG Duration 01/01/24 Assisted Goal (LTG) Patient to be independent and compliant with HEP and improve left shoulder elevation to at least 140 degrees for improved function and to facilitate lymphatic flow. LTG Duration 02/15/24 Assessment Summary Assessment Measurements increased epsecially hand and forearm due to taking compression bandaging off, stressed importance of consistent compression, wear on hand and arm 23 hrs per day. Physical Therapy Plan Frequency and Duration Frequency of Treatment 20 Duration of treatment (weeks) 12 Plan of Care Start Date 11/16/23 Plan of Care End Date 02/15/24 Therapeutic Interventions Therapeutic Interventions Home Exercise Program, Lymphedema Management,Manual Therapy,Patient/Caregiver Education,Self-Care/Home Management,Soft Tissue Mobilization,Taping, Therapeutic Activities, Therapeutic Exercises Modalities Vasopneumatic Devices Next Visit Focus/Plan Next Note Type Treatment Note Next Visit Plan Continue CDT to reduce as much as possible prior to appointment with fitter this Thursday. Continue to stress importance of compliance to HEP, self massage proximal while bandaging on
--- NOTE | 2023-11-26 14:45 | PT.OTN ---
Current Diagnoses Lymphedema, not elsewhere classified (11/26/23) Edema, unspecified (11/26/23) Physical Therapy Treatment Note PT-OP-A Visit Information Start: 11/15/23 16:24 Freq: Status: Active Protocol: Document 11/26/23 12:58 [facility]AK (Rec: 11/26/23 13:29 [facility] [id number]) Out-Patient Physical Therapy Visit Information Visit Information Visit Type Treatment Note Visit Start Time 12:59 Visit Stop Time 14:31 Visit Number 8 Evaluation Information Evaluation Date 11/16/23 Precautions Precautions lymphoma PT-OP-B Current Condition Start: 11/15/23 16:24 Freq: Status: Active Protocol: Document 11/26/23 12:58 SAK (Rec: 11/26/23 13:29 [facility] [id number]) Current Condition History of Current Condition Onset Date 2+ years Current Complaints lymphedema left UE History of Current Condition Previous treatment for lymphedema left UE with this PT, was discontinued due to insurance issues. Has velcro wrap compression wrap for left UE; hand and arm. Uses during the day and at night. Compression sleeves didn't work well for him, too difficult to don and doff and get to fit correctly, responded better to velcro wraps. Only has one compression garment due to cost, his has to help him get on correctly. Never got lymphedema pump. Was recently taken off a Cancer medication, discoloration that had been evident left UE has now disappeared. Is doing self massage, but not much exercise, states does a lot of sitting and is now noting left LE edema as well; wears knee high compression stockings that are too short, otherwise fit well. Feel he would benefit from thigh high compression on left. Has moderate knee pain bilaterally which limits his activity. PMH: lymphoma, TIA/CVA affecting left UE and LE, pacemaker. Reports he will be getting carpal tunnel surgery right hand. Prior Treatments and Tests CDT with this PT that was cut short due to insurance issues approximately 1 year ago. PT-OP-C Subjective Start: 11/15/23 16:24 Freq: Status: Active Protocol: Document 11/26/23 12:58 SAK (Rec: 11/26/23 13:29 [facility] [id number]) OP-PT Subjective Patient Comments Patient Comments The thum PT-OP-H Neuro Start: 11/15/23 16:24 Freq: Status: Active Protocol: Document 11/16/23 13:22 [facility] (Rec: 11/16/23 14:32 [facility] [id number]) Sensation Evaluation Gross Sensation Gross Sensation Left UE Impaired PT-OP-J Posture/Palpation/Skin Start: 11/15/23 16:24 Freq: Status: Active Protocol: Document 11/16/23 13:22 [facility] (Rec: 11/17/23 16:01 [facility] [id number]) Posture Evaluation Position Sitting Head/C-Spine Posture Forward Head T-Spine Posture Increased Kyphosis Shoulder Posture (L) Rounded,(R) Rounded Scapula Posture (L) Protracted,(R) Protracted Arm Posture (L) Internally Rotated,(R) Internally Rotated Palpation Assessment Location left UE Palpation Findings Edema,Soft Tissue Tightness Palpation Details fibrosis left hand, wrist, forearm Skin Assessment Edema Assessment left UE Edema Type Pitting Edema Degree 4+ Edema Appearance Firm,Taut Subjective Edema Description Tightness PT-OP-K Range of Motion Start: 11/15/23 16:24 Freq: Status: Active Protocol: Document 11/16/23 13:22 [facility] (Rec: 11/17/23 16:01 [facility] [id number]) Shoulder Goniometric Range of Motion Shoulder Left Active Shoulder ROM WFL No Testing Position Sitting Flexion 105 Extension 20 Abduction 95 External Rotation at 45 degrees 35 Abduction Internal Rotation Behind Back (text) S1 Right Shoulder ROM WFL Yes Shoulder ROM Limitations Shoulder ROM Limitations Soft Tissue Tightness,Muscle Weakness,Swelling Elbow/Forearm Range of Motion Elbow/Forearm left Elbow Flexion (degrees) 130 Elbow Extension (degrees) 5 Elbow Hyperextension 90 Pronation (degrees) 65 right Elbow/Forearm ROM WFL Yes Wrist Goniometric Range of Motion Wrist Left Wrist ROM WFL No Flexion Active (degrees) 20 Flexion Passive (degrees) 35 Extension Active (degrees) 10 Extension Passive (degrees) 25 Right Wrist ROM WFL Yes ROM Limitations Wrist Limitations of Range of Motion Soft Tissue Tightness,Muscle Weakness,Swelling Finger Goniometric Range of Motion Finger ROM Limitations Finger ROM Limitations Soft Tissue Tightness,Swelling Comments unable to make full fist with fingers and thumb due to lymphedema PT-OP-L Special Tests Start: 11/15/23 16:24 Freq: Status: Active Protocol: Document 11/16/23 13:22 [facility] (Rec: 11/17/23 16:01 [facility] [id number]) Special Tests Other Special Tests Special Tests Stemmer sign positive for lymphedema PT-OP-N Lymphedema Start: 11/15/23 16:24 Freq: Status: Active Protocol: Document 11/26/23 12:58 [facility] (Rec: 11/26/23 13:29 [facility] [id number]) Lymphedema Measurements Upper Extremity Circumference Measurements Left Affected MCP 23.7 cm Dorsum of Hand 25.7 cm Wrist 23.8 cm 5 cm From Wrist Crease 25.6 cm 10 cm From Wrist Crease 29.4 cm 15 cm From Wrist Crease 33.5 cm 20 cm From Wrist Crease 37.7 cm 25 cm From Wrist Crease 38.7 cm 30 cm From Wrist Crease 39.5 cm 35 cm From Wrist Crease 40.6 cm 40 cm From Wrist Crease 43.9 cm 45 cm From Wrist Crease 45.3 cm Elbow Joint 39.4 cm PT-OP-Q Treatments Start: 11/15/23 16:24 Freq: Status: Active Protocol: Document 11/26/23 12:58 [facility] (Rec: 11/26/23 13:29 [facility] [id number]) Lymphedema Treatment Lymphedema Wrapping Body Location left UE Materials Size F Tricofix, finger wraps, channel foam, Artiflex (3), Comprilan (6,8,10x3). Also jenkins foam dorsum of hand and at elbow crease Sequential Lymphedema Exercises Location sidelying and supine Comments open book, arm circles, manual stretching into elevation Other Other soft tissue mobilization of areas of tissue fibrosis in hand and forearm. PT-OP-R Modalities Start: 11/15/23 16:24 Freq: Status: Active Protocol: Document 11/26/23 12:58 [facility] (Rec: 11/26/23 14:45 [facility] [id number]) Compression Pump Treatment Treatment Location Left Arm Pressure Amount (mmHg) (mmHG) 40 Inflation Time (Seconds) 30 Deflation Time (Seconds) 10 Treatment Tolerance Good Treatment Comments during proximal MLD, deep breathing PT-OP-T Assessment and Plan Start: 11/15/23 16:24 Freq: Status: Active Protocol: Document 11/26/23 12:58 [facility] (Rec: 11/26/23 13:29 [facility] [id number]) Physical Therapy Assessment Goals Two Impairment lymphedema life impact scale 44% Short Term Goal (STG) decrease lymphedema life impact scale to no greater than 30% as measure of improved activity tolerance and quality of life STG Duration 01/01/24 Shelter Goal (LTG) Decrease lymphedema life impact scale to no greater than 20% as measure of improved activity tolerance and quality of life LTG Duration 02/15/24 One Impairment lymphedema left UE Short Term Goal (STG) Patient will be instructed in all aspects of lymphedema self -care to include skin care, elevation, self-massage, self- bandaging/compression options, and lymphedema exercises. STG Duration 01/01/24 Shelter Goal (LTG) Decrease patient?s lymphedema to a stable level (no increase or decrease greater than 1 cm over the course of 1 week), patient to be independent with all aspects of self-care for lymphedema, and will obtain appropriate compression garment for lymphedema management in the home, and sequential pneumatic pump to assist with self management in the home. Three Impairment left shoulder elevation limited to 113 degrees Impairment left shoulder elevation limited to 110 degrees Short Term Goal (STG) Patient to be instructed in HEP for purposes of addressing left UE ROM impairment STG Duration 01/01/24 Collar Band Creaser Goal (LTG) Patient to be independent and compliant with HEP and improve left shoulder elevation to at least 140 degrees for improved function and to facilitate lymphatic flow. LTG Duration 02/15/24 Assessment Summary Assessment Patient able to leave bandaging on his left UE all night last night, significant reductions in circumferential measurements today, benefits highly from use of channel foam under Artiflex. Compliant to self MLD, exercise, elevation, skin care , and compression. At this time feel patient is ready for evaluation for new compression garments. Due to difficulty with donning and prior challenges with correct fit of compression sleeve I recommend patient be fit with velcro compression alternatives such as Tribute Wrap for hand and arm for nightime and velcro wraps for daytime such as Sigvarus Ready Wrap or Compreflex plus hand compression (the Sigvarus products have an inner liner which make donning easier. Patient needs full finger coverage with hand compression so recommend custom full finger glove or Sigvarus dorsal pocket glove. Physical Therapy Plan Frequency and Duration Frequency of Treatment 20 Duration of treatment (weeks) 12 Plan of Care Start Date 11/16/23 Plan of Care End Date 02/15/24 Therapeutic Interventions Therapeutic Interventions Home Exercise Program, Lymphedema Management,Manual Therapy,Patient/Caregiver Education,Self-Care/Home Management,Soft Tissue Mobilization,Taping, Therapeutic Activities, Therapeutic Exercises Modalities Vasopneumatic Devices Next Visit Focus/Plan Next Note Type Treatment Note Next Visit Plan Patient has an appointment with [facility] tomorrow to evaluate for compression garments. Pt to consult further as needed. Continue Complete Decongestive therapy, assure good fit of compression garments and ability to don and doff.
--- NOTE | 2023-11-30 13:52 | PT.OTN ---
Current Diagnoses Lymphedema, not elsewhere classified (11/30/23) Edema, unspecified (11/30/23) Physical Therapy Treatment Note PT-OP-A Visit Information Start: 11/15/23 16:24 Freq: Status: Active Protocol: Document 11/30/23 13:00 [facility] (Rec: 11/30/23 13:24 [facility] [id number]) Out-Patient Physical Therapy Visit Information Visit Information Visit Type Treatment Note Visit Start Time 13:00 Visit Stop Time 14:30 Visit Number 9 Evaluation Information Evaluation Date 11/16/23 Precautions Precautions lymphoma PT-OP-B Current Condition Start: 11/15/23 16:24 Freq: Status: Active Protocol: Document 11/30/23 13:00 [facility] (Rec: 11/30/23 13:24 [facility] [id number]) Current Condition History of Current Condition Onset Date 2+ years Current Complaints lymphedema left UE History of Current Condition Previous treatment for lymphedema left UE with this PT, was discontinued due to insurance issues. Has velcro wrap compression wrap for left UE; hand and arm. Uses during the day and at night. Compression sleeves didn't work well for him, too difficult to don and doff and get to fit correctly, responded better to velcro wraps. Only has one compression garment due to cost, his has to help him get on correctly. Never got lymphedema pump. Was recently taken off a Cancer medication, discoloration that had been evident left UE has now disappeared. Is doing self massage, but not much exercise, states does a lot of sitting and is now noting left LE edema as well; wears knee high compression stockings that are too short, otherwise fit well. Feel he would benefit from thigh high compression on left. Has moderate knee pain bilaterally which limits his activity. PMH: lymphoma, TIA/CVA affecting left UE and LE, pacemaker. Reports he will be getting carpal tunnel surgery right hand. Prior Treatments and Tests CDT with this PT that was cut short due to insurance issues approximately 1 year ago. PT-OP-C Subjective Start: 11/15/23 16:24 Freq: Status: Active Protocol: Document 11/30/23 13:00 [facility] (Rec: 11/30/23 13:24 [facility] [id number]) OP-PT Subjective Patient Comments Patient Comments Saw Shelia enciso [facility]. Channel foam back of hand better than black foam. Wore channel foam under nighttime garment instead of bandaging over the weekend. PT-OP-H Neuro Start: 11/15/23 16:24 Freq: Status: Active Protocol: Document 11/16/23 13:22 [facility] (Rec: 11/16/23 14:32 [facility] [id number]) Sensation Evaluation Gross Sensation Gross Sensation Left UE Impaired PT-OP-J Posture/Palpation/Skin Start: 11/15/23 16:24 Freq: Status: Active Protocol: Document 11/16/23 13:22 [facility] (Rec: 11/17/23 16:01 [facility] [id number]) Posture Evaluation Position Sitting Head/C-Spine Posture Forward Head T-Spine Posture Increased Kyphosis Shoulder Posture (L) Rounded,(R) Rounded Scapula Posture (L) Protracted,(R) Protracted Arm Posture (L) Internally Rotated,(R) Internally Rotated Palpation Assessment Location left UE Palpation Findings Edema,Soft Tissue Tightness Palpation Details fibrosis left hand, wrist, forearm Skin Assessment Edema Assessment left UE Edema Type Pitting Edema Degree 4+ Edema Appearance Firm,Taut Subjective Edema Description Tightness PT-OP-K Range of Motion Start: 11/15/23 16:24 Freq: Status: Active Protocol: Document 11/16/23 13:22 [facility] (Rec: 11/17/23 16:01 [facility] [id number]) Shoulder Goniometric Range of Motion Shoulder Left Active Shoulder ROM WFL No Testing Position Sitting Flexion 105 Extension 20 Abduction 95 External Rotation at 45 degrees 35 Abduction Internal Rotation Behind Back (text) S1 Right Shoulder ROM WFL Yes Shoulder ROM Limitations Shoulder ROM Limitations Soft Tissue Tightness,Muscle Weakness,Swelling Elbow/Forearm Range of Motion Elbow/Forearm left Elbow Flexion (degrees) 130 Elbow Extension (degrees) 5 Elbow Hyperextension 90 Pronation (degrees) 65 right Elbow/Forearm ROM WFL Yes Wrist Goniometric Range of Motion Wrist Left Wrist ROM WFL No Flexion Active (degrees) 20 Flexion Passive (degrees) 35 Extension Active (degrees) 10 Extension Passive (degrees) 25 Right Wrist ROM WFL Yes ROM Limitations Wrist Limitations of Range of Motion Soft Tissue Tightness,Muscle Weakness,Swelling Finger Goniometric Range of Motion Finger ROM Limitations Finger ROM Limitations Soft Tissue Tightness,Swelling Comments unable to make full fist with fingers and thumb due to lymphedema PT-OP-L Special Tests Start: 11/15/23 16:24 Freq: Status: Active Protocol: Document 11/16/23 13:22 [facility] (Rec: 11/17/23 16:01 [facility] [id number]) Special Tests Other Special Tests Special Tests Stemmer sign positive for lymphedema PT-OP-N Lymphedema Start: 11/15/23 16:24 Freq: Status: Active Protocol: Document 11/30/23 13:00 [facility] (Rec: 11/30/23 13:24 [facility] [id number]) Lymphedema Measurements Upper Extremity Circumference Measurements Left Affected MCP 24.5 cm Dorsum of Hand 26.8 cm Wrist 25 cm 5 cm From Wrist Crease 27.5 cm 10 cm From Wrist Crease 31.7 cm 15 cm From Wrist Crease 37.3 cm 20 cm From Wrist Crease 40.4 cm 25 cm From Wrist Crease 41.8 cm 30 cm From Wrist Crease 42 cm 35 cm From Wrist Crease 43.1 cm 40 cm From Wrist Crease 45.7 cm 45 cm From Wrist Crease 48 cm Elbow Joint 41.5 cm PT-OP-Q Treatments Start: 11/15/23 16:24 Freq: Status: Active Protocol: Document 11/30/23 13:00 [facility] (Rec: 11/30/23 13:24 [facility] [id number]) Lymphedema Treatment Lymphedema Wrapping Body Location left UE Materials Size F Tricofix, finger wraps, channel foam, Artiflex (3), Comprilan (6,8,10x3). Also jenkins foam dorsum of hand and at elbow crease Sequential Lymphedema Exercises Location sidelying and supine Comments open book, arm circles, manual stretching into elevation PT-OP-R Modalities Start: 11/15/23 16:24 Freq: Status: Active Protocol: Document 11/30/23 13:00 [facility] (Rec: 11/30/23 13:24 [facility] [id number]) Compression Pump Treatment Treatment Location Left Arm Pressure Amount (mmHg) (mmHG) 40 Inflation Time (Seconds) 30 Deflation Time (Seconds) 10 Treatment Tolerance Good Treatment Comments during proximal MLD, deep breathing PT-OP-T Assessment and Plan Start: 11/15/23 16:24 Freq: Status: Active Protocol: Document 11/30/23 13:00 [facility] (Rec: 11/30/23 13:24 [facility] [id number]) Physical Therapy Assessment Goals Two Impairment lymphedema life impact scale 44% Short Term Goal (STG) decrease lymphedema life impact scale to no greater than 30% as measure of improved activity tolerance and quality of life STG Duration 01/01/24 Group Home Goal (LTG) Decrease lymphedema life impact scale to no greater than 20% as measure of improved activity tolerance and quality of life LTG Duration 02/15/24 One Impairment lymphedema left UE Short Term Goal (STG) Patient will be instructed in all aspects of lymphedema self -care to include skin care, elevation, self-massage, self- bandaging/compression options, and lymphedema exercises. STG Duration 01/01/24 Laundry Operator Goal (LTG) Decrease patient?s lymphedema to a stable level (no increase or decrease greater than 1 cm over the course of 1 week), patient to be independent with all aspects of self-care for lymphedema, and will obtain appropriate compression garment for lymphedema management in the home, and sequential pneumatic pump to assist with self management in the home. Three Impairment left shoulder elevation limited to 113 degrees Impairment left shoulder elevation limited to 110 degrees Short Term Goal (STG) Patient to be instructed in HEP for purposes of addressing left UE ROM impairment STG Duration 01/01/24 Laundry Operator Goal (LTG) Patient to be independent and compliant with HEP and improve left shoulder elevation to at least 140 degrees for improved function and to facilitate lymphatic flow. LTG Duration 02/15/24 Assessment Summary Assessment Increase in measurements over weekend, pt and did not do bandaging despite being previously educated; PT stressed importance of ability to bandage at home at this time and in the future if lymphedema flares up, agreed to bandaging with assist of tomorrow. Patient showed picture of hand and arm after last bandages removed last week, hand reduced better than it ever has with use of channel foam, good reduction noted in arm. Physical Therapy Plan Frequency and Duration Frequency of Treatment 20 Duration of treatment (weeks) 12 Plan of Care Start Date 11/16/23 Plan of Care End Date 02/15/24 Therapeutic Interventions Therapeutic Interventions Home Exercise Program, Lymphedema Management,Manual Therapy,Patient/Caregiver Education,Self-Care/Home Management,Soft Tissue Mobilization,Taping, Therapeutic Activities, Therapeutic Exercises Modalities Vasopneumatic Devices Next Visit Focus/Plan Next Note Type Treatment Note Next Visit Plan Continue CDT, assure good fit of compression garments. Further education/review compression bandaging for .
--- NOTE | 2023-11-30 16:08 | PT.OTN ---
Current Diagnoses Lymphedema, not elsewhere classified (11/30/23) Edema, unspecified (11/30/23) Physical Therapy Treatment Note PT-OP-A Visit Information Start: 11/15/23 16:24 Freq: Status: Active Protocol: Document 11/30/23 13:00 SAK (Rec: 11/30/23 13:24 SAK [id number]) Out-Patient Physical Therapy Visit Information Visit Information Visit Type Treatment Note Visit Start Time 13:00 Visit Stop Time 14:30 Visit Number 9 Evaluation Information Evaluation Date 11/16/23 Precautions Precautions lymphoma PT-OP-B Current Condition Start: 11/15/23 16:24 Freq: Status: Active Protocol: Document 11/30/23 13:00 SAK (Rec: 11/30/23 13:24 SAK [id number]) Current Condition History of Current Condition Onset Date 2+ years Current Complaints lymphedema left UE History of Current Condition Previous treatment for lymphedema left UE with this PT, was discontinued due to insurance issues. Has velcro wrap compression wrap for left UE; hand and arm. Uses during the day and at night. Compression sleeves didn't work well for him, too difficult to don and doff and get to fit correctly, responded better to velcro wraps. Only has one compression garment due to cost, his has to help him get on correctly. Never got lymphedema pump. Was recently taken off a Cancer medication, discoloration that had been evident left UE has now disappeared. Is doing self massage, but not much exercise, states does a lot of sitting and is now noting left LE edema as well; wears knee high compression stockings that are too short, otherwise fit well. Feel he would benefit from thigh high compression on left. Has moderate knee pain bilaterally which limits his activity. PMH: lymphoma, TIA/CVA affecting left UE and LE, pacemaker. Reports he will be getting carpal tunnel surgery right hand. Prior Treatments and Tests CDT with this PT that was cut short due to insurance issues approximately 1 year ago. PT-OP-C Subjective Start: 11/15/23 16:24 Freq: Status: Active Protocol: Document 11/30/23 13:00 SAK (Rec: 11/30/23 13:24 SAK [id number]) OP-PT Subjective Patient Comments Patient Comments Saw She[facility]. Channel foam back of hand better than black foam. Wore channel foam under nighttime garment instead of bandaging over the weekend. PT-OP-H Neuro Start: 11/15/23 16:24 Freq: Status: Active Protocol: Document 11/16/23 13:22 [facility] (Rec: 11/16/23 14:32 [facility] [id number]) Sensation Evaluation Gross Sensation Gross Sensation Left UE Impaired PT-OP-J Posture/Palpation/Skin Start: 11/15/23 16:24 Freq: Status: Active Protocol: Document 11/16/23 13:22 [facility] (Rec: 11/17/23 16:01 [facility] [id number]) Posture Evaluation Position Sitting Head/C-Spine Posture Forward Head T-Spine Posture Increased Kyphosis Shoulder Posture (L) Rounded,(R) Rounded Scapula Posture (L) Protracted,(R) Protracted Arm Posture (L) Internally Rotated,(R) Internally Rotated Palpation Assessment Location left UE Palpation Findings Edema,Soft Tissue Tightness Palpation Details fibrosis left hand, wrist, forearm Skin Assessment Edema Assessment left UE Edema Type Pitting Edema Degree 4+ Edema Appearance Firm,Taut Subjective Edema Description Tightness PT-OP-K Range of Motion Start: 11/15/23 16:24 Freq: Status: Active Protocol: Document 11/16/23 13:22 [facility] (Rec: 11/17/23 16:01 [facility] [id number]) Shoulder Goniometric Range of Motion Shoulder Left Active Shoulder ROM WFL No Testing Position Sitting Flexion 105 Extension 20 Abduction 95 External Rotation at 45 degrees 35 Abduction Internal Rotation Behind Back (text) S1 Right Shoulder ROM WFL Yes Shoulder ROM Limitations Shoulder ROM Limitations Soft Tissue Tightness,Muscle Weakness,Swelling Elbow/Forearm Range of Motion Elbow/Forearm left Elbow Flexion (degrees) 130 Elbow Extension (degrees) 5 Elbow Hyperextension 90 Pronation (degrees) 65 right Elbow/Forearm ROM WFL Yes Wrist Goniometric Range of Motion Wrist Left Wrist ROM WFL No Flexion Active (degrees) 20 Flexion Passive (degrees) 35 Extension Active (degrees) 10 Extension Passive (degrees) 25 Right Wrist ROM WFL Yes ROM Limitations Wrist Limitations of Range of Motion Soft Tissue Tightness,Muscle Weakness,Swelling Finger Goniometric Range of Motion Finger ROM Limitations Finger ROM Limitations Soft Tissue Tightness,Swelling Comments unable to make full fist with fingers and thumb due to lymphedema PT-OP-L Special Tests Start: 11/15/23 16:24 Freq: Status: Active Protocol: Document 11/16/23 13:22 SAK (Rec: 11/17/23 16:01 [facility] [id number]) Special Tests Other Special Tests Special Tests Stemmer sign positive for lymphedema PT-OP-N Lymphedema Start: 11/15/23 16:24 Freq: Status: Active Protocol: Document 11/30/23 13:00 [facility] (Rec: 11/30/23 13:24 [facility] [id number]) Lymphedema Measurements Upper Extremity Circumference Measurements Left Affected MCP 24.5 cm Dorsum of Hand 26.8 cm Wrist 25 cm 5 cm From Wrist Crease 27.5 cm 10 cm From Wrist Crease 31.7 cm 15 cm From Wrist Crease 37.3 cm 20 cm From Wrist Crease 40.4 cm 25 cm From Wrist Crease 41.8 cm 30 cm From Wrist Crease 42 cm 35 cm From Wrist Crease 43.1 cm 40 cm From Wrist Crease 45.7 cm 45 cm From Wrist Crease 48 cm Elbow Joint 41.5 cm PT-OP-Q Treatments Start: 11/15/23 16:24 Freq: Status: Active Protocol: Document 11/30/23 13:00 [facility] (Rec: 11/30/23 13:24 [facility] [id number]) Therapeutic Exercises Supine Exercises open/close hand Side left Reps/Minutes 10x wrist flex/ext Side left Reps/Minutes 10x elbow flex/ext Supine Exercise Name with pron/sup Side left Reps/Minutes 10x Sidelying Exercises ARM CIRCLES Reps/Minutes 10X EA DIRECTION OPEN BOOK Side left Reps/Minutes 5X Lymphedema Treatment Manual Lymphatic Drainage Location left UE Duration 40 Lymphedema Wrapping Body Location left UE Materials Size F Tricofix, finger wraps, channel foam, Artiflex (3), Comprilan (6,8,10x3). Also channel foam dorsum of hand and at elbow crease Sequential Lymphedema Exercises Location sidelying and supine Comments open book, arm circles, manual stretching into elevation, elbow, wrist, and hand AROM Patient Education Other stressed importance of bandaging left UE at home, better reduction with bandaging vs his nightime garment. Other Other soft tissue mobilization of areas of tissue fibrosis in hand and forearm. PT-OP-R Modalities Start: 11/15/23 16:24 Freq: Status: Active Protocol: Document 11/30/23 13:00 [facility] (Rec: 11/30/23 13:24 SAK [id number]) Compression Pump Treatment Treatment Location Left Arm Pressure Amount (mmHg) (mmHG) 40 Inflation Time (Seconds) 30 Deflation Time (Seconds) 10 Treatment Tolerance Good Treatment Comments during proximal MLD, deep breathing PT-OP-T Assessment and Plan Start: 11/15/23 16:24 Freq: Status: Active Protocol: Document 11/30/23 13:00 [facility] (Rec: 11/30/23 13:24 [facility] [id number]) Physical Therapy Assessment Goals Two Impairment lymphedema life impact scale 44% Short Term Goal (STG) decrease lymphedema life impact scale to no greater than 30% as measure of improved activity tolerance and quality of life STG Duration 01/01/24 Adobe [employer] Developer Goal (LTG) Decrease lymphedema life impact scale to no greater than 20% as measure of improved activity tolerance and quality of life LTG Duration 02/15/24 One Impairment lymphedema left UE Short Term Goal (STG) Patient will be instructed in all aspects of lymphedema self -care to include skin care, elevation, self-massage, self- bandaging/compression options, and lymphedema exercises. STG Duration 01/01/24 Mcc Goal (LTG) Decrease patient?s lymphedema to a stable level (no increase or decrease greater than 1 cm over the course of 1 week), patient to be independent with all aspects of self-care for lymphedema, and will obtain appropriate compression garment for lymphedema management in the home, and sequential pneumatic pump to assist with self management in the home. Three Impairment left shoulder elevation limited to 113 degrees Impairment left shoulder elevation limited to 110 degrees Short Term Goal (STG) Patient to be instructed in HEP for purposes of addressing left UE ROM impairment STG Duration 01/01/24 Mcc Goal (LTG) Patient to be independent and compliant with HEP and improve left shoulder elevation to at least 140 degrees for improved function and to facilitate lymphatic flow. LTG Duration 02/15/24 Assessment Summary Assessment Increase in measurements over weekend, pt and did not do bandaging despite being previously educated; PT stressed importance of ability to bandage at home at this time and in the future if lymphedema flares up, agreed to bandaging with assist of tomorrow. Patient showed picture of hand and arm after last bandages removed last week, hand reduced better than it ever has with use of channel foam, good reduction noted in arm. Physical Therapy Plan Frequency and Duration Frequency of Treatment 20 Duration of treatment (weeks) 12 Plan of Care Start Date 11/16/23 Plan of Care End Date 02/15/24 Therapeutic Interventions Therapeutic Interventions Home Exercise Program, Lymphedema Management,Manual Therapy,Patient/Caregiver Education,Self-Care/Home Management,Soft Tissue Mobilization,Taping, Therapeutic Activities, Therapeutic Exercises Modalities Vasopneumatic Devices Next Visit Focus/Plan Next Note Type Treatment Note Next Visit Plan Continue CDT, assure good fit of compression garments. Further education/review compression bandaging for .
--- NOTE | 2023-12-02 15:35 | PT.OTN ---
Current Diagnoses Lymphedema, not elsewhere classified (12/02/23) Edema, unspecified (12/02/23) Physical Therapy Treatment Note PT-OP-A Visit Information Start: 11/15/23 16:24 Freq: Status: Active Protocol: Document 12/02/23 12:56 SAK (Rec: 12/02/23 13:56 SAK [id number]) Out-Patient Physical Therapy Visit Information Visit Information Visit Type Treatment Note Visit Start Time 13:00 Visit Stop Time 14:30 Visit Number 10 Evaluation Information Evaluation Date 11/16/23 Precautions Precautions lymphoma PT-OP-B Current Condition Start: 11/15/23 16:24 Freq: Status: Active Protocol: Document 12/02/23 12:56 SAK (Rec: 12/02/23 13:56 SAK [id number]) Current Condition History of Current Condition Onset Date 2+ years Current Complaints lymphedema left UE History of Current Condition Previous treatment for lymphedema left UE with this PT, was discontinued due to insurance issues. Has velcro wrap compression wrap for left UE; hand and arm. Uses during the day and at night. Compression sleeves didn't work well for him, too difficult to don and doff and get to fit correctly, responded better to velcro wraps. Only has one compression garment due to cost, his has to help him get on correctly. Never got lymphedema pump. Was recently taken off a Cancer medication, discoloration that had been evident left UE has now disappeared. Is doing self massage, but not much exercise, states does a lot of sitting and is now noting left LE edema as well; wears knee high compression stockings that are too short, otherwise fit well. Feel he would benefit from thigh high compression on left. Has moderate knee pain bilaterally which limits his activity. PMH: lymphoma, TIA/CVA affecting left UE and LE, pacemaker. Reports he will be getting carpal tunnel surgery right hand. Prior Treatments and Tests CDT with this PT that was cut short due to insurance issues approximately 1 year ago. PT-OP-C Subjective Start: 11/15/23 16:24 Freq: Status: Active Protocol: Document 12/02/23 12:56 SAK (Rec: 12/02/23 13:56 SAK [id number]) OP-PT Subjective Patient Comments Patient Comments Able to leave bandaging on 48 hrs except thumb and first finger. Did HEP, self massage . States his hasn't had the energy to bandage his arm. PT-OP-H Neuro Start: 11/15/23 16:24 Freq: Status: Active Protocol: Document 11/16/23 13:22 [facility] (Rec: 11/16/23 14:32 [facility] [id number]) Sensation Evaluation Gross Sensation Gross Sensation Left UE Impaired PT-OP-J Posture/Palpation/Skin Start: 11/15/23 16:24 Freq: Status: Active Protocol: Document 11/16/23 13:22 [facility] (Rec: 11/17/23 16:01 [facility] [id number]) Posture Evaluation Position Sitting Head/C-Spine Posture Forward Head T-Spine Posture Increased Kyphosis Shoulder Posture (L) Rounded,(R) Rounded Scapula Posture (L) Protracted,(R) Protracted Arm Posture (L) Internally Rotated,(R) Internally Rotated Palpation Assessment Location left UE Palpation Findings Edema,Soft Tissue Tightness Palpation Details fibrosis left hand, wrist, forearm Skin Assessment Edema Assessment left UE Edema Type Pitting Edema Degree 4+ Edema Appearance Firm,Taut Subjective Edema Description Tightness PT-OP-K Range of Motion Start: 11/15/23 16:24 Freq: Status: Active Protocol: Document 11/16/23 13:22 [facility] (Rec: 11/17/23 16:01 [facility] [id number]) Shoulder Goniometric Range of Motion Shoulder Left Active Shoulder ROM WFL No Testing Position Sitting Flexion 105 Extension 20 Abduction 95 External Rotation at 45 degrees 35 Abduction Internal Rotation Behind Back (text) S1 Right Shoulder ROM WFL Yes Shoulder ROM Limitations Shoulder ROM Limitations Soft Tissue Tightness,Muscle Weakness,Swelling Elbow/Forearm Range of Motion Elbow/Forearm left Elbow Flexion (degrees) 130 Elbow Extension (degrees) 5 Elbow Hyperextension 90 Pronation (degrees) 65 right Elbow/Forearm ROM WFL Yes Wrist Goniometric Range of Motion Wrist Left Wrist ROM WFL No Flexion Active (degrees) 20 Flexion Passive (degrees) 35 Extension Active (degrees) 10 Extension Passive (degrees) 25 Right Wrist ROM WFL Yes ROM Limitations Wrist Limitations of Range of Motion Soft Tissue Tightness,Muscle Weakness,Swelling Finger Goniometric Range of Motion Finger ROM Limitations Finger ROM Limitations Soft Tissue Tightness,Swelling Comments unable to make full fist with fingers and thumb due to lymphedema PT-OP-L Special Tests Start: 11/15/23 16:24 Freq: Status: Active Protocol: Document 11/16/23 13:22 SAK (Rec: 11/17/23 16:01 SAK [id number]) Special Tests Other Special Tests Special Tests Stemmer sign positive for lymphedema PT-OP-N Lymphedema Start: 11/15/23 16:24 Freq: Status: Active Protocol: Document 12/02/23 12:56 SAK (Rec: 12/02/23 13:56 SAK [id number]) Lymphedema Measurements Upper Extremity Circumference Measurements Left Affected MCP 24 cm Dorsum of Hand 25.9 cm Wrist 23.8 cm 5 cm From Wrist Crease 26.8 cm 10 cm From Wrist Crease 29.9 cm 15 cm From Wrist Crease 33.9 cm 20 cm From Wrist Crease 37.7 cm 25 cm From Wrist Crease 39.2 cm 30 cm From Wrist Crease 41.7 cm 35 cm From Wrist Crease 43.6 cm 40 cm From Wrist Crease 45.7 cm 45 cm From Wrist Crease 47.2 cm Elbow Joint 41 cm PT-OP-Q Treatments Start: 11/15/23 16:24 Freq: Status: Active Protocol: Document 12/02/23 12:56 SAK (Rec: 12/02/23 13:56 [facility] [id number]) Therapeutic Exercises Supine Exercises open/close hand Side left Reps/Minutes 10x wrist flex/ext Side left Reps/Minutes 10x elbow flex/ext Supine Exercise Name with pron/sup Side left Reps/Minutes 10x Sidelying Exercises ARM CIRCLES Reps/Minutes 10X EA DIRECTION OPEN BOOK Side left Reps/Minutes 5X Lymphedema Treatment Manual Lymphatic Drainage Location left UE Duration 40 Lymphedema Wrapping Body Location left UE Materials Size F Tricofix, finger wraps, channel foam, Artiflex (3), Comprilan (6,8,10x3). Also channel foam dorsum of hand and at elbow crease Sequential Lymphedema Exercises Location sidelying and supine Comments open book, arm circles, manual stretching into elevation, elbow, wrist, and hand AROM Compression Garment Assessment Compression Garment Assessment Details Patient has no daytime garments Other Other soft tissue mobilization of areas of tissue fibrosis in hand and forearm. PT-OP-R Modalities Start: 11/15/23 16:24 Freq: Status: Active Protocol: Document 12/02/23 12:56 [facility] (Rec: 12/02/23 13:56 [facility] [id number]) Compression Pump Treatment Treatment Location Left Arm Pressure Amount (mmHg) (mmHG) 40 Inflation Time (Seconds) 30 Deflation Time (Seconds) 10 Treatment Tolerance Good Treatment Comments during proximal MLD, deep breathing PT-OP-T Assessment and Plan Start: 11/15/23 16:24 Freq: Status: Active Protocol: Document 12/02/23 12:56 [facility] (Rec: 12/02/23 13:56 [facility] [id number]) Physical Therapy Assessment Goals Two Impairment lymphedema life impact scale 44% Short Term Goal (STG) decrease lymphedema life impact scale to no greater than 30% as measure of improved activity tolerance and quality of life STG Duration 01/01/24 Print Line Operator Goal (LTG) Decrease lymphedema life impact scale to no greater than 20% as measure of improved activity tolerance and quality of life LTG Duration 02/15/24 One Impairment lymphedema left UE Short Term Goal (STG) Patient will be instructed in all aspects of lymphedema self -care to include skin care, elevation, self-massage, self- bandaging/compression options, and lymphedema exercises. STG Duration 01/01/24 Print Line Operator Goal (LTG) Decrease patient?s lymphedema to a stable level (no increase or decrease greater than 1 cm over the course of 1 week), patient to be independent with all aspects of self-care for lymphedema, and will obtain appropriate compression garment for lymphedema management in the home, and sequential pneumatic pump to assist with self management in the home. Three Impairment left shoulder elevation limited to 113 degrees Impairment left shoulder elevation limited to 110 degrees Short Term Goal (STG) Patient to be instructed in HEP for purposes of addressing left UE ROM impairment STG Duration 01/01/24 [facility] Goal (LTG) Patient to be independent and compliant with HEP and improve left shoulder elevation to at least 140 degrees for improved function and to facilitate lymphatic flow. LTG Duration 02/15/24 Assessment Summary Assessment Decreased measurements again after bandaging, leaving on 48 hrs. Patient reports his was too tired to try bandaging his arm again. At this time he doesn't have any other appointments scheduled so importance of follow- through with home program including bandaging stressed. More appointments in process of being scheduled and will be put on waiting list due to PT scheduled out for weeks. Physical Therapy Plan Frequency and Duration Frequency of Treatment 20 Duration of treatment (weeks) 12 Plan of Care Start Date 11/16/23 Plan of Care End Date 02/15/24 Therapeutic Interventions Therapeutic Interventions Home Exercise Program, Lymphedema Management,Manual Therapy,Patient/Caregiver Education,Self-Care/Home Management,Soft Tissue Mobilization,Taping, Therapeutic Activities, Therapeutic Exercises Modalities Vasopneumatic Devices Next Visit Focus/Plan Next Note Type Treatment Note Next Visit Plan Continue CDT, assure good fit of compression garments. Further education/review compression bandaging for .
--- NOTE | 2023-12-07 11:23 | PT.OTN ---
Current Diagnoses Lymphedema, not elsewhere classified (12/07/23) Edema, unspecified (12/07/23) Physical Therapy Treatment Note PT-OP-A Visit Information Start: 11/15/23 16:24 Freq: Status: Active Protocol: Document 12/07/23 10:44 SAK (Rec: 12/07/23 11:23 SAK [id number]) Out-Patient Physical Therapy Visit Information Visit Information Visit Type Treatment Note Visit Start Time 10:45 Visit Stop Time 11:30 Visit Number 11 Evaluation Information Evaluation Date 11/16/23 Precautions Precautions lymphoma PT-OP-B Current Condition Start: 11/15/23 16:24 Freq: Status: Active Protocol: Document 12/07/23 10:44 SAK (Rec: 12/07/23 11:23 SAK [id number]) Current Condition History of Current Condition Onset Date 2+ years Current Complaints lymphedema left UE History of Current Condition Previous treatment for lymphedema left UE with this PT, was discontinued due to insurance issues. Has velcro wrap compression wrap for left UE; hand and arm. Uses during the day and at night. Compression sleeves didn't work well for him, too difficult to don and doff and get to fit correctly, responded better to velcro wraps. Only has one compression garment due to cost, his has to help him get on correctly. Never got lymphedema pump. Was recently taken off a Cancer medication, discoloration that had been evident left UE has now disappeared. Is doing self massage, but not much exercise, states does a lot of sitting and is now noting left LE edema as well; wears knee high compression stockings that are too short, otherwise fit well. Feel he would benefit from thigh high compression on left. Has moderate knee pain bilaterally which limits his activity. PMH: lymphoma, TIA/CVA affecting left UE and LE, pacemaker. Reports he will be getting carpal tunnel surgery right hand. Prior Treatments and Tests CDT with this PT that was cut short due to insurance issues approximately 1 year ago. PT-OP-C Subjective Start: 11/15/23 16:24 Freq: Status: Active Protocol: Document 12/07/23 10:44 SAK (Rec: 12/07/23 11:23 SAK [id number]) OP-PT Subjective Patient Comments Patient Comments Wasn't bandaged over the weekend, too busy to help , has been wearing night garment. PT-OP-H Neuro Start: 11/15/23 16:24 Freq: Status: Active Protocol: Document 11/16/23 13:22 [facility] (Rec: 11/16/23 14:32 [facility] [id number]) Sensation Evaluation Gross Sensation Gross Sensation Left UE Impaired PT-OP-J Posture/Palpation/Skin Start: 11/15/23 16:24 Freq: Status: Active Protocol: Document 11/16/23 13:22 [facility] (Rec: 11/17/23 16:01 [facility] [id number]) Posture Evaluation Position Sitting Head/C-Spine Posture Forward Head T-Spine Posture Increased Kyphosis Shoulder Posture (L) Rounded,(R) Rounded Scapula Posture (L) Protracted,(R) Protracted Arm Posture (L) Internally Rotated,(R) Internally Rotated Palpation Assessment Location left UE Palpation Findings Edema,Soft Tissue Tightness Palpation Details fibrosis left hand, wrist, forearm Skin Assessment Edema Assessment left UE Edema Type Pitting Edema Degree 4+ Edema Appearance Firm,Taut Subjective Edema Description Tightness PT-OP-K Range of Motion Start: 11/15/23 16:24 Freq: Status: Active Protocol: Document 11/16/23 13:22 [facility] (Rec: 11/17/23 16:01 [facility] [id number]) Shoulder Goniometric Range of Motion Shoulder Left Active Shoulder ROM WFL No Testing Position Sitting Flexion 105 Extension 20 Abduction 95 External Rotation at 45 degrees 35 Abduction Internal Rotation Behind Back (text) S1 Right Shoulder ROM WFL Yes Shoulder ROM Limitations Shoulder ROM Limitations Soft Tissue Tightness,Muscle Weakness,Swelling Elbow/Forearm Range of Motion Elbow/Forearm left Elbow Flexion (degrees) 130 Elbow Extension (degrees) 5 Elbow Hyperextension 90 Pronation (degrees) 65 right Elbow/Forearm ROM WFL Yes Wrist Goniometric Range of Motion Wrist Left Wrist ROM WFL No Flexion Active (degrees) 20 Flexion Passive (degrees) 35 Extension Active (degrees) 10 Extension Passive (degrees) 25 Right Wrist ROM WFL Yes ROM Limitations Wrist Limitations of Range of Motion Soft Tissue Tightness,Muscle Weakness,Swelling Finger Goniometric Range of Motion Finger ROM Limitations Finger ROM Limitations Soft Tissue Tightness,Swelling Comments unable to make full fist with fingers and thumb due to lymphedema PT-OP-L Special Tests Start: 09/15/24 16:24 Freq: Status: Active Protocol: Document 11/16/23 13:22 SAK (Rec: 11/17/23 16:01 SAK [id number]) Special Tests Other Special Tests Special Tests Stemmer sign positive for lymphedema PT-OP-N Lymphedema Start: 11/15/23 16:24 Freq: Status: Active Protocol: Document 12/07/23 10:44 SAK (Rec: 12/07/23 11:23 SAK [id number]) Lymphedema Measurements Upper Extremity Circumference Measurements Left Affected MCP 24.6 cm Dorsum of Hand 25.4 cm Wrist 25.5 cm 5 cm From Wrist Crease 26.8 cm 10 cm From Wrist Crease 29.8 cm 15 cm From Wrist Crease 35.3 cm 20 cm From Wrist Crease 39.7 cm 25 cm From Wrist Crease 40.2 cm 30 cm From Wrist Crease 42.7 cm 35 cm From Wrist Crease 45.5 cm 40 cm From Wrist Crease 48.2 cm 45 cm From Wrist Crease 48 cm Elbow Joint 41 cm PT-OP-Q Treatments Start: 11/15/23 16:24 Freq: Status: Active Protocol: Document 12/07/23 10:44 SAK (Rec: 12/07/23 11:23 [facility] [id number]) Cardio Equipment Upper Body Ergometer (UBE) Duration (Minutes) 10 RPM 60 Seat Position 10 Height 3.5 Therapeutic Exercises Sitting Exercises lymphedema ex Sitting Exercise Name starting neck turns, shoulder rolls, shoulder ROM, elbow ROM , hand and wris PT-OP-R Modalities Start: 11/15/23 16:24 Freq: Status: Active Protocol: Document 12/02/23 12:56 [facility] (Rec: 12/02/23 13:56 [facility] [id number]) Compression Pump Treatment Treatment Location Left Arm Pressure Amount (mmHg) (mmHG) 40 Inflation Time (Seconds) 30 Deflation Time (Seconds) 10 Treatment Tolerance Good Treatment Comments during proximal MLD, deep breathing PT-OP-T Assessment and Plan Start: 11/15/23 16:24 Freq: Status: Active Protocol: Document 12/07/23 10:44 SAK (Rec: 12/07/23 11:23 SAK [id number]) Physical Therapy Assessment Goals Two Impairment lymphedema life impact scale 44% Short Term Goal (STG) decrease lymphedema life impact scale to no greater than 30% as measure of improved activity tolerance and quality of life STG Duration 01/01/24 Auto Detailer Goal (LTG) Decrease lymphedema life impact scale to no greater than 20% as measure of improved activity tolerance and quality of life LTG Duration 02/15/24 One Impairment lymphedema left UE Short Term Goal (STG) Patient will be instructed in all aspects of lymphedema self -care to include skin care, elevation, self-massage, self- bandaging/compression options, and lymphedema exercises. STG Duration 01/01/24 Usp Goal (LTG) Decrease patient?s lymphedema to a stable level (no increase or decrease greater than 1 cm over the course of 1 week), patient to be independent with all aspects of self-care for lymphedema, and will obtain appropriate compression garment for lymphedema management in the home, and sequential pneumatic pump to assist with self management in the home. Three Impairment left shoulder elevation limited to 113 degrees Impairment left shoulder elevation limited to 110 degrees Short Term Goal (STG) Patient to be instructed in HEP for purposes of addressing left UE ROM impairment STG Duration 01/01/24 Auto Detailer Goal (LTG) Patient to be independent and compliant with HEP and improve left shoulder elevation to at least 140 degrees for improved function and to facilitate lymphatic flow. LTG Duration 02/15/24 Physical Therapy Plan Frequency and Duration Frequency of Treatment 20 Duration of treatment (weeks) 12 Plan of Care Start Date 11/16/23 Plan of Care End Date 02/15/24 Therapeutic Interventions Therapeutic Interventions Home Exercise Program, Lymphedema Management,Manual Therapy,Patient/Caregiver Education,Self-Care/Home Management,Soft Tissue Mobilization,Taping, Therapeutic Activities, Therapeutic Exercises Modalities Vasopneumatic Devices Next Visit Focus/Plan Next Note Type Treatment Note Next Visit Plan Continue CDT, assure good fit of compression garments. Further education/review as indicated for home program
--- NOTE | 2023-12-10 13:28 | PT.OTN ---
Current Diagnoses Lymphedema, not elsewhere classified (12/10/23) Edema, unspecified (12/10/23) Physical Therapy Treatment Note PT-OP-A Visit Information Start: 11/15/23 16:24 Freq: Status: Active Protocol: Document 12/10/23 12:56 SAK (Rec: 12/10/23 13:28 [facility] [id number]) Out-Patient Physical Therapy Visit Information Visit Information Visit Type Treatment Note Visit Start Time 12:57 Visit Number 12 Evaluation Information Evaluation Date 11/16/23 Precautions Precautions lymphoma PT-OP-B Current Condition Start: 11/15/23 16:24 Freq: Status: Active Protocol: Document 12/10/23 12:56 SAK (Rec: 12/10/23 13:28 [facility] [id number]) Current Condition History of Current Condition Onset Date 2+ years Current Complaints lymphedema left UE History of Current Condition Previous treatment for lymphedema left UE with this PT, was discontinued due to insurance issues. Has velcro wrap compression wrap for left UE; hand and arm. Uses during the day and at night. Compression sleeves didn't work well for him, too difficult to don and doff and get to fit correctly, responded better to velcro wraps. Only has one compression garment due to cost, his has to help him get on correctly. Never got lymphedema pump. Was recently taken off a Cancer medication, discoloration that had been evident left UE has now disappeared. Is doing self massage, but not much exercise, states does a lot of sitting and is now noting left LE edema as well; wears knee high compression stockings that are too short, otherwise fit well. Feel he would benefit from thigh high compression on left. Has moderate knee pain bilaterally which limits his activity. PMH: lymphoma, TIA/CVA affecting left UE and LE, pacemaker. Reports he will be getting carpal tunnel surgery right hand. Prior Treatments and Tests CDT with this PT that was cut short due to insurance issues approximately 1 year ago. PT-OP-C Subjective Start: 11/15/23 16:24 Freq: Status: Active Protocol: Document 12/10/23 12:56 SAK (Rec: 12/10/23 13:28 [facility] [id number]) OP-PT Subjective Patient Comments Patient Comments States did some finger bandaging with his , but no arm, they both fell asleep while rolling bandages. To PT with finger wraps and night garment on. PT-OP-H Neuro Start: 11/15/23 16:24 Freq: Status: Active Protocol: Document 11/16/23 13:22 [facility] (Rec: 11/16/23 14:32 [facility] [id number]) Sensation Evaluation Gross Sensation Gross Sensation Left UE Impaired PT-OP-J Posture/Palpation/Skin Start: 11/15/23 16:24 Freq: Status: Active Protocol: Document 11/16/23 13:22 [facility] (Rec: 11/17/23 16:01 [facility] [id number]) Posture Evaluation Position Sitting Head/C-Spine Posture Forward Head T-Spine Posture Increased Kyphosis Shoulder Posture (L) Rounded,(R) Rounded Scapula Posture (L) Protracted,(R) Protracted Arm Posture (L) Internally Rotated,(R) Internally Rotated Palpation Assessment Location left UE Palpation Findings Edema,Soft Tissue Tightness Palpation Details fibrosis left hand, wrist, forearm Skin Assessment Edema Assessment left UE Edema Type Pitting Edema Degree 4+ Edema Appearance Firm,Taut Subjective Edema Description Tightness PT-OP-K Range of Motion Start: 11/15/23 16:24 Freq: Status: Active Protocol: Document 11/16/23 13:22 [facility] (Rec: 11/17/23 16:01 [facility] [id number]) Shoulder Goniometric Range of Motion Shoulder Left Active Shoulder ROM WFL No Testing Position Sitting Flexion 105 Extension 20 Abduction 95 External Rotation at 45 degrees 35 Abduction Internal Rotation Behind Back (text) S1 Right Shoulder ROM WFL Yes Shoulder ROM Limitations Shoulder ROM Limitations Soft Tissue Tightness,Muscle Weakness,Swelling Elbow/Forearm Range of Motion Elbow/Forearm left Elbow Flexion (degrees) 130 Elbow Extension (degrees) 5 Elbow Hyperextension 90 Pronation (degrees) 65 right Elbow/Forearm ROM WFL Yes Wrist Goniometric Range of Motion Wrist Left Wrist ROM WFL No Flexion Active (degrees) 20 Flexion Passive (degrees) 35 Extension Active (degrees) 10 Extension Passive (degrees) 25 Right Wrist ROM WFL Yes ROM Limitations Wrist Limitations of Range of Motion Soft Tissue Tightness,Muscle Weakness,Swelling Finger Goniometric Range of Motion Finger ROM Limitations Finger ROM Limitations Soft Tissue Tightness,Swelling Comments unable to make full fist with fingers and thumb due to lymphedema PT-OP-L Special Tests Start: 11/15/23 16:24 Freq: Status: Active Protocol: Document 11/16/23 13:22 [facility] (Rec: 11/17/23 16:01 [facility] [id number]) Special Tests Other Special Tests Special Tests Stemmer sign positive for lymphedema PT-OP-N Lymphedema Start: 11/15/23 16:24 Freq: Status: Active Protocol: Document 12/10/23 12:56 [facility] (Rec: 12/10/23 13:28 [facility] [id number]) Lymphedema Measurements Upper Extremity Circumference Measurements Left Affected MCP 24.2 cm Dorsum of Hand 26 cm Wrist 23.2 cm 5 cm From Wrist Crease 26.8 cm 10 cm From Wrist Crease 29.8 cm 15 cm From Wrist Crease 36 cm 20 cm From Wrist Crease 39 cm 25 cm From Wrist Crease 38.8 cm 30 cm From Wrist Crease 39.3 cm 35 cm From Wrist Crease 41.5 cm 40 cm From Wrist Crease 43.8 cm 45 cm From Wrist Crease 47 cm Elbow Joint 39.8 cm PT-OP-Q Treatments Start: 11/15/23 16:24 Freq: Status: Active Protocol: Document 12/10/23 12:56 [facility] (Rec: 12/10/23 13:28 [facility] [id number]) Cardio Equipment Upper Body Ergometer (UBE) Duration (Minutes) 10 RPM 60 Seat Position 10 Height 3.5 Other to facilitate lymphatic flow after bandaging Therapeutic Exercises Sitting Exercises lymphedema ex Sitting Exercise Name starting neck turns, shoulder rolls, shoulder ROM, elbow ROM , hand and wris Lymphedema Treatment Manual Lymphatic Drainage Location left UE Duration 15 Lymphedema Wrapping Body Location left UE Materials Size F Tricofix, finger wraps, channel foam, Artiflex (3), Comprilan (6,8,10x3). Also channel foam entire arm dorsum of hand PT-OP-R Modalities Start: 11/15/23 16:24 Freq: Status: Active Protocol: Document 12/02/23 12:56 [facility] (Rec: 12/02/23 13:56 [facility] [id number]) Compression Pump Treatment Treatment Location Left Arm Pressure Amount (mmHg) (mmHG) 40 Inflation Time (Seconds) 30 Deflation Time (Seconds) 10 Treatment Tolerance Good Treatment Comments during proximal MLD, deep breathing PT-OP-T Assessment and Plan Start: 11/15/23 16:24 Freq: Status: Active Protocol: Document 12/10/23 12:56 [facility] (Rec: 12/10/23 13:28 SAK [id number]) Physical Therapy Assessment Goals Two Impairment lymphedema life impact scale 44% Short Term Goal (STG) decrease lymphedema life impact scale to no greater than 30% as measure of improved activity tolerance and quality of life STG Duration 01/01/24 Pediatric Oncologist Goal (LTG) Decrease lymphedema life impact scale to no greater than 20% as measure of improved activity tolerance and quality of life LTG Duration 02/15/24 One Impairment lymphedema left UE Short Term Goal (STG) Patient will be instructed in all aspects of lymphedema self -care to include skin care, elevation, self-massage, self- bandaging/compression options, and lymphedema exercises. STG Duration 01/01/24 Pediatric Oncologist Goal (LTG) Decrease patient?s lymphedema to a stable level (no increase or decrease greater than 1 cm over the course of 1 week), patient to be independent with all aspects of self-care for lymphedema, and will obtain appropriate compression garment for lymphedema management in the home, and sequential pneumatic pump to assist with self management in the home. Three Impairment left shoulder elevation limited to 113 degrees Impairment left shoulder elevation limited to 110 degrees Short Term Goal (STG) Patient to be instructed in HEP for purposes of addressing left UE ROM impairment STG Duration 01/01/24 Pediatric Oncologist Goal (LTG) Patient to be independent and compliant with HEP and improve left shoulder elevation to at least 140 degrees for improved function and to facilitate lymphatic flow. LTG Duration 02/15/24 Assessment Summary Assessment Bandaging by fair, not enough overliap in fingers and too tight at wrist, discussed technique with who demonstrated good understanding for corrections. Most measurements stable or decreased. Improving HEP compliance. Physical Therapy Plan Frequency and Duration Frequency of Treatment 20 Duration of treatment (weeks) 12 Plan of Care Start Date 11/16/23 Plan of Care End Date 02/15/24 Therapeutic Interventions Therapeutic Interventions Home Exercise Program, Lymphedema Management,Manual Therapy,Patient/Caregiver Education,Self-Care/Home Management,Soft Tissue Mobilization,Taping, Therapeutic Activities, Therapeutic Exercises Modalities Vasopneumatic Devices Next Visit Focus/Plan Next Note Type Treatment Note Next Visit Plan Continue CDT, assure good fit of compression garments. Further education/review as indicated for home program
--- NOTE | 2023-12-15 09:59 | PT.OTN ---
Current Diagnoses Lymphedema, not elsewhere classified (12/15/23) Edema, unspecified (12/15/23) Physical Therapy Treatment Note PT-OP-A Visit Information Start: 11/15/23 16:24 Freq: Status: Active Protocol: Document 12/15/23 09:06 [facility] (Rec: 12/15/23 09:53 [facility] [id number]) Out-Patient Physical Therapy Visit Information Visit Information Visit Type Treatment Note Visit Start Time 09:02 Visit Stop Time 10:30 Visit Number 13 Evaluation Information Evaluation Date 11/16/23 Precautions Precautions lymphoma PT-OP-B Current Condition Start: 11/15/23 16:24 Freq: Status: Active Protocol: Document 12/15/23 09:06 [facility] (Rec: 12/15/23 09:53 [facility] [id number]) Current Condition History of Current Condition Onset Date 2+ years Current Complaints lymphedema left UE History of Current Condition Previous treatment for lymphedema left UE with this PT, was discontinued due to insurance issues. Has velcro wrap compression wrap for left UE; hand and arm. Uses during the day and at night. Compression sleeves didn't work well for him, too difficult to don and doff and get to fit correctly, responded better to velcro wraps. Only has one compression garment due to cost, his has to help him get on correctly. Never got lymphedema pump. Was recently taken off a Cancer medication, discoloration that had been evident left UE has now disappeared. Is doing self massage, but not much exercise, states does a lot of sitting and is now noting left LE edema as well; wears knee high compression stockings that are too short, otherwise fit well. Feel he would benefit from thigh high compression on left. Has moderate knee pain bilaterally which limits his activity. PMH: lymphoma, TIA/CVA affecting left UE and LE, pacemaker. Reports he will be getting carpal tunnel surgery right hand. Prior Treatments and Tests CDT with this PT that was cut short due to insurance issues approximately 1 year ago. PT-OP-C Subjective Start: 11/15/23 16:24 Freq: Status: Active Protocol: Document 12/15/23 09:06 [facility] (Rec: 12/15/23 09:53 [facility] [id number]) OP-PT Subjective Patient Comments Patient Comments MOstly just using channel foam and night garment due to difficulty with bandating. Still havent heard from [facility]. Might stop by today PT-OP-H Neuro Start: 11/15/23 16:24 Freq: Status: Active Protocol: Document 11/16/23 13:22 [facility] (Rec: 11/16/23 14:32 [facility] [id number]) Sensation Evaluation Gross Sensation Gross Sensation Left UE Impaired PT-OP-J Posture/Palpation/Skin Start: 11/15/23 16:24 Freq: Status: Active Protocol: Document 11/16/23 13:22 [facility] (Rec: 11/17/23 16:01 [facility] [id number]) Posture Evaluation Position Sitting Head/C-Spine Posture Forward Head T-Spine Posture Increased Kyphosis Shoulder Posture (L) Rounded,(R) Rounded Scapula Posture (L) Protracted,(R) Protracted Arm Posture (L) Internally Rotated,(R) Internally Rotated Palpation Assessment Location left UE Palpation Findings Edema,Soft Tissue Tightness Palpation Details fibrosis left hand, wrist, forearm Skin Assessment Edema Assessment left UE Edema Type Pitting Edema Degree 4+ Edema Appearance Firm,Taut Subjective Edema Description Tightness PT-OP-K Range of Motion Start: 11/15/23 16:24 Freq: Status: Active Protocol: Document 11/16/23 13:22 [facility] (Rec: 11/17/23 16:01 [facility] [id number]) Shoulder Goniometric Range of Motion Shoulder Left Active Shoulder ROM WFL No Testing Position Sitting Flexion 105 Extension 20 Abduction 95 External Rotation at 45 degrees 35 Abduction Internal Rotation Behind Back (text) S1 Right Shoulder ROM WFL Yes Shoulder ROM Limitations Shoulder ROM Limitations Soft Tissue Tightness,Muscle Weakness,Swelling Elbow/Forearm Range of Motion Elbow/Forearm left Elbow Flexion (degrees) 130 Elbow Extension (degrees) 5 Elbow Hyperextension 90 Pronation (degrees) 65 right Elbow/Forearm ROM WFL Yes Wrist Goniometric Range of Motion Wrist Left Wrist ROM WFL No Flexion Active (degrees) 20 Flexion Passive (degrees) 35 Extension Active (degrees) 10 Extension Passive (degrees) 25 Right Wrist ROM WFL Yes ROM Limitations Wrist Limitations of Range of Motion Soft Tissue Tightness,Muscle Weakness,Swelling Finger Goniometric Range of Motion Finger ROM Limitations Finger ROM Limitations Soft Tissue Tightness,Swelling Comments unable to make full fist with fingers and thumb due to lymphedema PT-OP-L Special Tests Start: 11/15/23 16:24 Freq: Status: Active Protocol: Document 11/16/23 13:22 [facility] (Rec: 11/17/23 16:01 [facility] [id number]) Special Tests Other Special Tests Special Tests Stemmer sign positive for lymphedema PT-OP-N Lymphedema Start: 11/15/23 16:24 Freq: Status: Active Protocol: Document 12/15/23 09:06 [facility] (Rec: 12/15/23 09:53 [facility] [id number]) Lymphedema Measurements Upper Extremity Circumference Measurements Left Affected MCP 24 cm Dorsum of Hand 25.8 cm Wrist 24 cm 5 cm From Wrist Crease 25.9 cm 10 cm From Wrist Crease 30.1 cm 15 cm From Wrist Crease 36.2 cm 20 cm From Wrist Crease 39 cm 25 cm From Wrist Crease 39.8 cm 30 cm From Wrist Crease 41 cm 35 cm From Wrist Crease 42.6 cm 40 cm From Wrist Crease 45.7 cm 45 cm From Wrist Crease 47.8 cm Elbow Joint 39.8 cm PT-OP-Q Treatments Start: 11/15/23 16:24 Freq: Status: Active Protocol: Document 12/15/23 09:06 [facility] (Rec: 12/15/23 09:53 [facility] [id number]) Cardio Equipment Upper Body Ergometer (UBE) Duration (Minutes) 10 RPM 60 Seat Position 10 Height 3.5 Other to facilitate lymphatic flow after bandaging Therapeutic Exercises Supine Exercises shoulder flex Reps/Minutes 5x Comments manual stretchingt elbow flex/ext Supine Exercise Name with pron/sup Side left Reps/Minutes 10x Comments arm overhead Sidelying Exercises ARM CIRCLES Reps/Minutes 10X EA DIRECTION Comments verbal and tactile cues for maximal ROM OPEN BOOK Side left Reps/Minutes 5X Comments verbal and tactile cues for segmantal and max ROM Lymphedema Treatment Manual Lymphatic Drainage Location left UE Duration 40 Lymphedema Wrapping Body Location left UE Materials Size F Tricofix, finger wraps, channel foam, Artiflex (3), Comprilan (6,8,10x3). Also channel foam entire arm dorsum of hand PT-OP-R Modalities Start: 11/15/23 16:24 Freq: Status: Active Protocol: Document 12/02/23 12:56 [facility] (Rec: 12/02/23 13:56 [facility] [id number]) Compression Pump Treatment Treatment Location Left Arm Pressure Amount (mmHg) (mmHG) 40 Inflation Time (Seconds) 30 Deflation Time (Seconds) 10 Treatment Tolerance Good Treatment Comments during proximal MLD, deep breathing PT-OP-T Assessment and Plan Start: 11/15/23 16:24 Freq: Status: Active Protocol: Document 12/15/23 09:06 [facility] (Rec: 12/15/23 09:53 [facility] [id number]) Physical Therapy Assessment Goals Two Impairment lymphedema life impact scale 44% Short Term Goal (STG) decrease lymphedema life impact scale to no greater than 30% as measure of improved activity tolerance and quality of life STG Duration 01/01/24 Machining Supervisor Goal (LTG) Decrease lymphedema life impact scale to no greater than 20% as measure of improved activity tolerance and quality of life LTG Duration 02/15/24 One Impairment lymphedema left UE Short Term Goal (STG) Patient will be instructed in all aspects of lymphedema self -care to include skin care, elevation, self-massage, self- bandaging/compression options, and lymphedema exercises. 12/15/23: goal met STG Duration 01/01/24 Machining Supervisor Goal (LTG) Decrease patient?s lymphedema to a stable level (no increase or decrease greater than 1 cm over the course of 1 week), patient to be independent with all aspects of self-care for lymphedema, and will obtain appropriate compression garment for lymphedema management in the home, and sequential pneumatic pump to assist with self management in the home. Three Impairment left shoulder elevation limited to 113 degrees Impairment left shoulder elevation limited to 110 degrees Short Term Goal (STG) Patient to be instructed in HEP for purposes of addressing left UE ROM impairment 12/15/23: goal met, though review and guidance still necessary for correct performance. Active left shoulder elevation 115 degrees , passive to 140. Limited by weakness from CVA STG Duration goal met Senior Living Goal (LTG) Patient to be independent and compliant with HEP and improve left shoulder elevation to at least 140 degrees for improved function and to facilitate lymphatic flow. LTG Duration 02/15/24 Assessment Summary Assessment Circumferential measurement showed some increase, but not as significant as usual after 5 days without PT. Patient wearing both hand and arm componenet of his night garment. Still needs guidance and review of HEP for improved performance. Patient CVA impacts his ability to do movements well and he tends to ruiz throw without getting significant stretch. Needs continued PT for lymphedema management at least until receives compression garments and also hopefully a sequential pneumatic pump for his arm. Physical Therapy Plan Frequency and Duration Frequency of Treatment 20 Duration of treatment (weeks) 12 Plan of Care Start Date 11/16/23 Plan of Care End Date 02/15/24 Therapeutic Interventions Therapeutic Interventions Home Exercise Program, Lymphedema Management,Manual Therapy,Patient/Caregiver Education,Self-Care/Home Management,Soft Tissue Mobilization,Taping, Therapeutic Activities, Therapeutic Exercises Modalities Vasopneumatic Devices Next Visit Focus/Plan Next Note Type Treatment Note Next Visit Plan Continue CDT, assure good fit of compression garments. Further education/review as indicated for home program
--- NOTE | 2023-12-15 15:45 | PT.OTN ---
Current Diagnoses Lymphedema, not elsewhere classified (12/15/23) Edema, unspecified (12/15/23) Physical Therapy Treatment Note PT-OP-A Visit Information Start: 11/15/23 16:24 Freq: Status: Active Protocol: Document 12/15/23 09:06 [facility] (Rec: 12/15/23 09:53 [facility] [id number]) Out-Patient Physical Therapy Visit Information Visit Information Visit Type Treatment Note Visit Start Time 09:02 Visit Stop Time 10:30 Visit Number 13 Evaluation Information Evaluation Date 11/16/23 Precautions Precautions lymphoma PT-OP-B Current Condition Start: 11/15/23 16:24 Freq: Status: Active Protocol: Document 12/15/23 09:06 [facility] (Rec: 12/15/23 09:53 [facility] [id number]) Current Condition History of Current Condition Onset Date 2+ years Current Complaints lymphedema left UE History of Current Condition Previous treatment for lymphedema left UE with this PT, was discontinued due to insurance issues. Has velcro wrap compression wrap for left UE; hand and arm. Uses during the day and at night. Compression sleeves didn't work well for him, too difficult to don and doff and get to fit correctly, responded better to velcro wraps. Only has one compression garment due to cost, his has to help him get on correctly. Never got lymphedema pump. Was recently taken off a Cancer medication, discoloration that had been evident left UE has now disappeared. Is doing self massage, but not much exercise, states does a lot of sitting and is now noting left LE edema as well; wears knee high compression stockings that are too short, otherwise fit well. Feel he would benefit from thigh high compression on left. Has moderate knee pain bilaterally which limits his activity. PMH: lymphoma, TIA/CVA affecting left UE and LE, pacemaker. Reports he will be getting carpal tunnel surgery right hand. Prior Treatments and Tests CDT with this PT that was cut short due to insurance issues approximately 1 year ago. PT-OP-C Subjective Start: 11/15/23 16:24 Freq: Status: Active Protocol: Document 12/15/23 09:06 [facility] (Rec: 12/15/23 09:53 [facility] [id number]) OP-PT Subjective Patient Comments Patient Comments MOstly just using channel foam and night garment due to difficulty with bandating. Still havent heard from [facility]. Might stop by today PT-OP-H Neuro Start: 11/15/23 16:24 Freq: Status: Active Protocol: Document 11/16/23 13:22 [facility] (Rec: 11/16/23 14:32 [facility] [id number]) Sensation Evaluation Gross Sensation Gross Sensation Left UE Impaired PT-OP-J Posture/Palpation/Skin Start: 11/15/23 16:24 Freq: Status: Active Protocol: Document 11/16/23 13:22 [facility] (Rec: 11/17/23 16:01 [facility] [id number]) Posture Evaluation Position Sitting Head/C-Spine Posture Forward Head T-Spine Posture Increased Kyphosis Shoulder Posture (L) Rounded,(R) Rounded Scapula Posture (L) Protracted,(R) Protracted Arm Posture (L) Internally Rotated,(R) Internally Rotated Palpation Assessment Location left UE Palpation Findings Edema,Soft Tissue Tightness Palpation Details fibrosis left hand, wrist, forearm Skin Assessment Edema Assessment left UE Edema Type Pitting Edema Degree 4+ Edema Appearance Firm,Taut Subjective Edema Description Tightness PT-OP-K Range of Motion Start: 11/15/23 16:24 Freq: Status: Active Protocol: Document 11/16/23 13:22 [facility] (Rec: 11/17/23 16:01 [facility] [id number]) Shoulder Goniometric Range of Motion Shoulder Left Active Shoulder ROM WFL No Testing Position Sitting Flexion 105 Extension 20 Abduction 95 External Rotation at 45 degrees 35 Abduction Internal Rotation Behind Back (text) S1 Right Shoulder ROM WFL Yes Shoulder ROM Limitations Shoulder ROM Limitations Soft Tissue Tightness,Muscle Weakness,Swelling Elbow/Forearm Range of Motion Elbow/Forearm left Elbow Flexion (degrees) 130 Elbow Extension (degrees) 5 Elbow Hyperextension 90 Pronation (degrees) 65 right Elbow/Forearm ROM WFL Yes Wrist Goniometric Range of Motion Wrist Left Wrist ROM WFL No Flexion Active (degrees) 20 Flexion Passive (degrees) 35 Extension Active (degrees) 10 Extension Passive (degrees) 25 Right Wrist ROM WFL Yes ROM Limitations Wrist Limitations of Range of Motion Soft Tissue Tightness,Muscle Weakness,Swelling Finger Goniometric Range of Motion Finger ROM Limitations Finger ROM Limitations Soft Tissue Tightness,Swelling Comments unable to make full fist with fingers and thumb due to lymphedema PT-OP-L Special Tests Start: 11/15/23 16:24 Freq: Status: Active Protocol: Document 11/16/23 13:22 [facility] (Rec: 11/17/23 16:01 [facility] [id number]) Special Tests Other Special Tests Special Tests Stemmer sign positive for lymphedema PT-OP-N Lymphedema Start: 11/15/23 16:24 Freq: Status: Active Protocol: Document 12/15/23 09:06 [facility] (Rec: 12/15/23 09:53 [facility] [id number]) Lymphedema Measurements Upper Extremity Circumference Measurements Left Affected MCP 24 cm Dorsum of Hand 25.8 cm Wrist 24 cm 5 cm From Wrist Crease 25.9 cm 10 cm From Wrist Crease 30.1 cm 15 cm From Wrist Crease 36.2 cm 20 cm From Wrist Crease 39 cm 25 cm From Wrist Crease 39.8 cm 30 cm From Wrist Crease 41 cm 35 cm From Wrist Crease 42.6 cm 40 cm From Wrist Crease 45.7 cm 45 cm From Wrist Crease 47.8 cm Elbow Joint 39.8 cm PT-OP-Q Treatments Start: 11/15/23 16:24 Freq: Status: Active Protocol: Document 12/15/23 09:06 [facility] (Rec: 12/15/23 09:53 [facility] [id number]) Cardio Equipment Upper Body Ergometer (UBE) Duration (Minutes) 10 RPM 60 Seat Position 10 Height 3.5 Other to facilitate lymphatic flow after bandaging Therapeutic Exercises Supine Exercises shoulder flex Reps/Minutes 5x Comments manual stretchingt elbow flex/ext Supine Exercise Name with pron/sup Side left Reps/Minutes 10x Comments arm overhead Sidelying Exercises ARM CIRCLES Reps/Minutes 10X EA DIRECTION Comments verbal and tactile cues for maximal ROM OPEN BOOK Side left Reps/Minutes 5X Comments verbal and tactile cues for segmantal and max ROM Lymphedema Treatment Manual Lymphatic Drainage Location left UE Duration 40 Lymphedema Wrapping Body Location left UE Materials Size F Tricofix, finger wraps, channel foam, Artiflex (3), Comprilan (6,8,10x3). Also channel foam entire arm dorsum of hand PT-OP-R Modalities Start: 11/15/23 16:24 Freq: Status: Active Protocol: Document 12/02/23 12:56 [facility] (Rec: 12/02/23 13:56 [facility] [id number]) Compression Pump Treatment Treatment Location Left Arm Pressure Amount (mmHg) (mmHG) 40 Inflation Time (Seconds) 30 Deflation Time (Seconds) 10 Treatment Tolerance Good Treatment Comments during proximal MLD, deep breathing PT-OP-T Assessment and Plan Start: 11/15/23 16:24 Freq: Status: Active Protocol: Document 12/15/23 09:06 [facility] (Rec: 12/15/23 09:53 [facility] [id number]) Physical Therapy Assessment Goals Two Impairment lymphedema life impact scale 44% Short Term Goal (STG) decrease lymphedema life impact scale to no greater than 30% as measure of improved activity tolerance and quality of life STG Duration 01/01/24 Agency Owner Goal (LTG) Decrease lymphedema life impact scale to no greater than 20% as measure of improved activity tolerance and quality of life LTG Duration 02/15/24 One Impairment lymphedema left UE Short Term Goal (STG) Patient will be instructed in all aspects of lymphedema self -care to include skin care, elevation, self-massage, self- bandaging/compression options, and lymphedema exercises. 12/15/23: goal met STG Duration 01/01/24 Agency Owner Goal (LTG) Decrease patient?s lymphedema to a stable level (no increase or decrease greater than 1 cm over the course of 1 week), patient to be independent with all aspects of self-care for lymphedema, and will obtain appropriate compression garment for lymphedema management in the home, and sequential pneumatic pump to assist with self management in the home. Three Impairment left shoulder elevation limited to 113 degrees Impairment left shoulder elevation limited to 110 degrees Short Term Goal (STG) Patient to be instructed in HEP for purposes of addressing left UE ROM impairment 12/15/23: goal met, though review and guidance still necessary for correct performance. Active left shoulder elevation 115 degrees , passive to 140. Limited by weakness from CVA STG Duration goal met Skilled Nursing Goal (LTG) Patient to be independent and compliant with HEP and improve left shoulder elevation to at least 140 degrees for improved function and to facilitate lymphatic flow. LTG Duration 02/15/24 Assessment Summary Assessment Circumferential measurement showed some increase, but not as significant as usual after 5 days without PT. Patient wearing both hand and arm componenet of his night garment. Still needs guidance and review of HEP for improved performance. Patient CVA impacts his ability to do movements well and he tends to ruiz throw without getting significant stretch. Needs continued PT for lymphedema management at least until receives compression garments and also hopefully a sequential pneumatic pump for his arm. Physical Therapy Plan Frequency and Duration Frequency of Treatment 20 Duration of treatment (weeks) 12 Plan of Care Start Date 11/16/23 Plan of Care End Date 02/15/24 Therapeutic Interventions Therapeutic Interventions Home Exercise Program, Lymphedema Management,Manual Therapy,Patient/Caregiver Education,Self-Care/Home Management,Soft Tissue Mobilization,Taping, Therapeutic Activities, Therapeutic Exercises Modalities Vasopneumatic Devices Next Visit Focus/Plan Next Note Type Treatment Note Next Visit Plan Continue CDT, assure good fit of compression garments. Further education/review as indicated for home program
--- NOTE | 2023-12-17 11:33 | PT.OTN ---
Current Diagnoses Lymphedema, not elsewhere classified (12/17/23) Edema, unspecified (12/17/23) Physical Therapy Treatment Note PT-OP-A Visit Information Start: 11/15/23 16:24 Freq: Status: Active Protocol: Document 12/17/23 10:45 [facility] (Rec: 12/17/23 11:32 [facility] [id number]) Out-Patient Physical Therapy Visit Information Visit Information Visit Type Treatment Note Visit Start Time 10:46 Visit Number 14 Evaluation Information Evaluation Date 11/16/23 Precautions Precautions lymphoma PT-OP-B Current Condition Start: 11/15/23 16:24 Freq: Status: Active Protocol: Document 12/17/23 10:45 [facility] (Rec: 12/17/23 11:32 [facility] [id number]) Current Condition History of Current Condition Onset Date 2+ years Current Complaints lymphedema left UE History of Current Condition Previous treatment for lymphedema left UE with this PT, was discontinued due to insurance issues. Has velcro wrap compression wrap for left UE; hand and arm. Uses during the day and at night. Compression sleeves didn't work well for him, too difficult to don and doff and get to fit correctly, responded better to velcro wraps. Only has one compression garment due to cost, his has to help him get on correctly. Never got lymphedema pump. Was recently taken off a Cancer medication, discoloration that had been evident left UE has now disappeared. Is doing self massage, but not much exercise, states does a lot of sitting and is now noting left LE edema as well; wears knee high compression stockings that are too short, otherwise fit well. Feel he would benefit from thigh high compression on left. Has moderate knee pain bilaterally which limits his activity. PMH: lymphoma, TIA/CVA affecting left UE and LE, pacemaker. Reports he will be getting carpal tunnel surgery right hand. Prior Treatments and Tests CDT with this PT that was cut short due to insurance issues approximately 1 year ago. PT-OP-C Subjective Start: 11/15/23 16:24 Freq: Status: Active Protocol: Document 12/17/23 10:45 [facility]AK (Rec: 12/17/23 11:32 [facility] [id number]) OP-PT Subjective Patient Comments Patient Comments Left bandaging on since last session for 2 days. Better tolerance, though 3 finger wraps eventually came of PT-OP-H Neuro Start: 11/15/23 16:24 Freq: Status: Active Protocol: Document 11/16/23 13:22 [facility] (Rec: 11/16/23 14:32 [facility] [id number]) Sensation Evaluation Gross Sensation Gross Sensation Left UE Impaired PT-OP-J Posture/Palpation/Skin Start: 11/15/23 16:24 Freq: Status: Active Protocol: Document 11/16/23 13:22 [facility] (Rec: 11/17/23 16:01 [facility] [id number]) Posture Evaluation Position Sitting Head/C-Spine Posture Forward Head T-Spine Posture Increased Kyphosis Shoulder Posture (L) Rounded,(R) Rounded Scapula Posture (L) Protracted,(R) Protracted Arm Posture (L) Internally Rotated,(R) Internally Rotated Palpation Assessment Location left UE Palpation Findings Edema,Soft Tissue Tightness Palpation Details fibrosis left hand, wrist, forearm Skin Assessment Edema Assessment left UE Edema Type Pitting Edema Degree 4+ Edema Appearance Firm,Taut Subjective Edema Description Tightness PT-OP-K Range of Motion Start: 11/15/23 16:24 Freq: Status: Active Protocol: Document 11/16/23 13:22 [facility] (Rec: 11/17/23 16:01 [facility] [id number]) Shoulder Goniometric Range of Motion Shoulder Left Active Shoulder ROM WFL No Testing Position Sitting Flexion 105 Extension 20 Abduction 95 External Rotation at 45 degrees 35 Abduction Internal Rotation Behind Back (text) S1 Right Shoulder ROM WFL Yes Shoulder ROM Limitations Shoulder ROM Limitations Soft Tissue Tightness,Muscle Weakness,Swelling Elbow/Forearm Range of Motion Elbow/Forearm left Elbow Flexion (degrees) 130 Elbow Extension (degrees) 5 Elbow Hyperextension 90 Pronation (degrees) 65 right Elbow/Forearm ROM WFL Yes Wrist Goniometric Range of Motion Wrist Left Wrist ROM WFL No Flexion Active (degrees) 20 Flexion Passive (degrees) 35 Extension Active (degrees) 10 Extension Passive (degrees) 25 Right Wrist ROM WFL Yes ROM Limitations Wrist Limitations of Range of Motion Soft Tissue Tightness,Muscle Weakness,Swelling Finger Goniometric Range of Motion Finger ROM Limitations Finger ROM Limitations Soft Tissue Tightness,Swelling Comments unable to make full fist with fingers and thumb due to lymphedema PT-OP-L Special Tests Start: 11/15/23 16:24 Freq: Status: Active Protocol: Document 11/16/23 13:22 [facility] (Rec: 11/17/23 16:01 [facility] [id number]) Special Tests Other Special Tests Special Tests Stemmer sign positive for lymphedema PT-OP-N Lymphedema Start: 11/15/23 16:24 Freq: Status: Active Protocol: Document 12/17/23 10:45 [facility] (Rec: 12/17/23 11:32 [facility] [id number]) Lymphedema Measurements Upper Extremity Circumference Measurements Left Affected MCP 24 cm Dorsum of Hand 25.5 cm Wrist 24 cm 5 cm From Wrist Crease 26.5 cm 10 cm From Wrist Crease 30.5 cm 15 cm From Wrist Crease 35.9 cm 20 cm From Wrist Crease 38.7 cm 25 cm From Wrist Crease 40 cm 30 cm From Wrist Crease 41 cm 35 cm From Wrist Crease 43.1 cm 40 cm From Wrist Crease 45.8 cm 45 cm From Wrist Crease 47.8 cm Elbow Joint 40 cm PT-OP-Q Treatments Start: 11/15/23 16:24 Freq: Status: Active Protocol: Document 12/17/23 10:45 [facility] (Rec: 12/17/23 11:32 [facility] [id number]) Cardio Equipment Upper Body Ergometer (UBE) Duration (Minutes) 10 RPM 60 Seat Position 10 Height 3.5 Other to facilitate lymphatic flow after bandaging Therapeutic Exercises Supine Exercises shoulder flex Reps/Minutes 5x Comments manual stretchingt open/close hand Side left Reps/Minutes 10x wrist flex/ext Side left Reps/Minutes 10x elbow flex/ext Supine Exercise Name with pron/sup Side left Reps/Minutes 10x Comments arm overhead Sidelying Exercises ARM CIRCLES Reps/Minutes 10X EA DIRECTION Comments verbal and tactile cues for maximal ROM OPEN BOOK Side left Reps/Minutes 5X Comments verbal and tactile cues for segmantal and max ROM Sitting Exercises lymphedema ex Sitting Exercise Name starting neck turns, shoulder rolls, shoulder ROM, elbow ROM , hand and wris Lymphedema Treatment Manual Lymphatic Drainage Location left UE Duration 40 Lymphedema Wrapping Body Location left UE Materials Size F Tricofix, finger wraps, channel foam, Artiflex (3), Comprilan (6,8,10x3). Also channel foam entire arm dorsum of hand Sequential Lymphedema Exercises Location sidelying and supine Comments open book, arm circles, manual stretching into elevation, elbow, wrist, and hand AROM, trunk rotation Compression Garment Assessment Compression Garment Assessment Details waiting to receive, patient checking with [facility]. PT-OP-R Modalities Start: 11/15/23 16:24 Freq: Status: Active Protocol: Document 12/02/23 12:56 [facility]AK (Rec: 12/02/23 13:56 [facility] [id number]) Compression Pump Treatment Treatment Location Left Arm Pressure Amount (mmHg) (mmHG) 40 Inflation Time (Seconds) 30 Deflation Time (Seconds) 10 Treatment Tolerance Good Treatment Comments during proximal MLD, deep breathing PT-OP-T Assessment and Plan Start: 11/15/23 16:24 Freq: Status: Active Protocol: Document 12/17/23 10:45 [facility]AK (Rec: 12/17/23 11:32 [facility] [id number]) Physical Therapy Assessment Goals Two Impairment lymphedema life impact scale 44% Short Term Goal (STG) decrease lymphedema life impact scale to no greater than 30% as measure of improved activity tolerance and quality of life STG Duration 01/01/24 [place] Goal (LTG) Decrease lymphedema life impact scale to no greater than 20% as measure of improved activity tolerance and quality of life LTG Duration 02/15/24 One Impairment lymphedema left UE Short Term Goal (STG) Patient will be instructed in all aspects of lymphedema self -care to include skin care, elevation, self-massage, self- bandaging/compression options, and lymphedema exercises. 12/15/23: goal met STG Duration 01/01/24 Nursing Home Goal (LTG) Decrease patient?s lymphedema to a stable level (no increase or decrease greater than 1 cm over the course of 1 week), patient to be independent with all aspects of self-care for lymphedema, and will obtain appropriate compression garment for lymphedema management in the home, and sequential pneumatic pump to assist with self management in the home. Three Impairment left shoulder elevation limited to 113 degrees Impairment left shoulder elevation limited to 110 degrees Short Term Goal (STG) Patient to be instructed in HEP for purposes of addressing left UE ROM impairment 12/15/23: goal met, though review and guidance still necessary for correct performance. Active left shoulder elevation 115 degrees , passive to 140. Limited by weakness from CVA STG Duration goal met Nursing Home Goal (LTG) Patient to be independent and compliant with HEP and improve left shoulder elevation to at least 140 degrees for improved function and to facilitate lymphatic flow. LTG Duration 02/15/24 Assessment Summary Assessment Patient has been seen for 30 days of conservative lymphedema management including skin care, elevation , manual lymphatic drainage, lymphedema exercises, and compression. Despite this he continues to struggle with lymphedema management. Contributing to this difficulty is prior CVA affecting movement of his left UE. Highly recommend the use of sequential pneumatic pump for use in the home to assist him with self management and prevent complications of lymphedema. Physical Therapy Plan Frequency and Duration Frequency of Treatment 20 Duration of treatment (weeks) 12 Plan of Care Start Date 11/16/23 Plan of Care End Date 02/15/24 Therapeutic Interventions Therapeutic Interventions Home Exercise Program, Lymphedema Management,Manual Therapy,Patient/Caregiver Education,Self-Care/Home Management,Soft Tissue Mobilization,Taping, Therapeutic Activities, Therapeutic Exercises Modalities Vasopneumatic Devices Next Visit Focus/Plan Next Note Type Treatment Note Next Visit Plan Continue CDT, assure good fit of compression garments. Further education/review as indicated for home program. Request sequential pneumatic pump for this patient.
--- NOTE | 2024-01-11 08:04 | PT-OP ANOTE ---
cancelled due to taking to appointment
--- NOTE | 2024-01-12 15:22 | PT.OTN ---
Current Diagnoses Lymphedema, not elsewhere classified (12/17/23) Edema, unspecified (12/17/23) Physical Therapy Treatment Note PT-OP-A Visit Information Start: 11/15/23 16:24 Freq: Status: Active Protocol: Document 01/12/24 14:35 [facility]AK (Rec: 01/12/24 15:22 [facility] [id number]) Out-Patient Physical Therapy Visit Information Visit Information Visit Type Treatment Note Visit Start Time 14:35 Visit Stop Time 16:00 Visit Number 15 Evaluation Information Evaluation Date 11/16/23 Precautions Precautions lymphoma PT-OP-B Current Condition Start: 11/15/23 16:24 Freq: Status: Active Protocol: Document 01/12/24 14:35 [facility] (Rec: 01/12/24 15:22 [facility] [id number]) Current Condition History of Current Condition Onset Date 2+ years Current Complaints lymphedema left UE History of Current Condition Previous treatment for lymphedema left UE with this PT, was discontinued due to insurance issues. Has velcro wrap compression wrap for left UE; hand and arm. Uses during the day and at night. Compression sleeves didn't work well for him, too difficult to don and doff and get to fit correctly, responded better to velcro wraps. Only has one compression garment due to cost, his has to help him get on correctly. Never got lymphedema pump. Was recently taken off a Cancer medication, discoloration that had been evident left UE has now disappeared. Is doing self massage, but not much exercise, states does a lot of sitting and is now noting left LE edema as well; wears knee high compression stockings that are too short, otherwise fit well. Feel he would benefit from thigh high compression on left. Has moderate knee pain bilaterally which limits his activity. PMH: lymphoma, TIA/CVA affecting left UE and LE, pacemaker. Reports he will be getting carpal tunnel surgery right hand. Prior Treatments and Tests CDT with this PT that was cut short due to insurance issues approximately 1 year ago. PT-OP-C Subjective Start: 11/15/23 16:24 Freq: Status: Active Protocol: Document 12/17/23 10:45 [facility]AK (Rec: 12/17/23 11:32 [facility] [id number]) OP-PT Subjective Patient Comments Patient Comments Left bandaging on since last session for 2 days. Better tolerance, though 3 finger wraps eventually came of PT-OP-H Neuro Start: 11/15/23 16:24 Freq: Status: Active Protocol: Document 11/16/23 13:22 [facility] (Rec: 11/16/23 14:32 [facility] [id number]) Sensation Evaluation Gross Sensation Gross Sensation Left UE Impaired PT-OP-J Posture/Palpation/Skin Start: 11/15/23 16:24 Freq: Status: Active Protocol: Document 11/16/23 13:22 [facility] (Rec: 11/17/23 16:01 [facility] [id number]) Posture Evaluation Position Sitting Head/C-Spine Posture Forward Head T-Spine Posture Increased Kyphosis Shoulder Posture (L) Rounded,(R) Rounded Scapula Posture (L) Protracted,(R) Protracted Arm Posture (L) Internally Rotated,(R) Internally Rotated Palpation Assessment Location left UE Palpation Findings Edema,Soft Tissue Tightness Palpation Details fibrosis left hand, wrist, forearm Skin Assessment Edema Assessment left UE Edema Type Pitting Edema Degree 4+ Edema Appearance Firm,Taut Subjective Edema Description Tightness PT-OP-K Range of Motion Start: 11/15/23 16:24 Freq: Status: Active Protocol: Document 11/16/23 13:22 [facility] (Rec: 11/17/23 16:01 [facility] [id number]) Shoulder Goniometric Range of Motion Shoulder Left Active Shoulder ROM WFL No Testing Position Sitting Flexion 105 Extension 20 Abduction 95 External Rotation at 45 degrees 35 Abduction Internal Rotation Behind Back (text) S1 Right Shoulder ROM WFL Yes Shoulder ROM Limitations Shoulder ROM Limitations Soft Tissue Tightness,Muscle Weakness,Swelling Elbow/Forearm Range of Motion Elbow/Forearm left Elbow Flexion (degrees) 130 Elbow Extension (degrees) 5 Elbow Hyperextension 90 Pronation (degrees) 65 right Elbow/Forearm ROM WFL Yes Wrist Goniometric Range of Motion Wrist Left Wrist ROM WFL No Flexion Active (degrees) 20 Flexion Passive (degrees) 35 Extension Active (degrees) 10 Extension Passive (degrees) 25 Right Wrist ROM WFL Yes ROM Limitations Wrist Limitations of Range of Motion Soft Tissue Tightness,Muscle Weakness,Swelling Finger Goniometric Range of Motion Finger ROM Limitations Finger ROM Limitations Soft Tissue Tightness,Swelling Comments unable to make full fist with fingers and thumb due to lymphedema PT-OP-L Special Tests Start: 11/15/23 16:24 Freq: Status: Active Protocol: Document 11/16/23 13:22 [facility] (Rec: 11/17/23 16:01 [facility] [id number]) Special Tests Other Special Tests Special Tests Stemmer sign positive for lymphedema PT-OP-N Lymphedema Start: 11/15/23 16:24 Freq: Status: Active Protocol: Document 01/12/24 14:35 [facility] (Rec: 01/12/24 15:22 [facility] [id number]) Lymphedema Measurements Upper Extremity Circumference Measurements Left Affected MCP 24.8 cm Dorsum of Hand 26.3 cm Wrist 24.8 cm 5 cm From Wrist Crease 27.7 cm 10 cm From Wrist Crease 30.7 cm 15 cm From Wrist Crease 36.4 cm 20 cm From Wrist Crease 40.8 cm 25 cm From Wrist Crease 41.3 cm 30 cm From Wrist Crease 40.8 cm 35 cm From Wrist Crease 43 cm 40 cm From Wrist Crease 45.8 cm 45 cm From Wrist Crease 48.3 cm Elbow Joint 42.5 cm Axilla 49 cm PT-OP-Q Treatments Start: 11/15/23 16:24 Freq: Status: Active Protocol: Document 01/12/24 14:35 [facility] (Rec: 01/12/24 15:22 [facility] [id number]) Cardio Equipment Upper Body Ergometer (UBE) Duration (Minutes) 10 RPM 60 Seat Position 10 Height 3.5 Other to facilitate lymphatic flow after bandaging Lymphedema Treatment Manual Lymphatic Drainage Location left UE Duration 40 Lymphedema Wrapping Body Location left UE Materials Size F Tricofix, finger wraps, channel foam, Artiflex (3), Comprilan (6,8,10x3). Also channel foam entire arm dorsum of hand Sequential Lymphedema Exercises Location sidelying and supine Comments open book, arm circles, manual stretching into elevation, elbow, wrist, and hand AROM, trunk rotation Compression Garment Assessment Compression Garment Assessment Details Patient reports denial of compression garments. PT contacted [facility] and requested patient get copy of denial to PT. PT-OP-R Modalities Start: 11/15/23 16:24 Freq: Status: Active Protocol: Document 12/02/23 12:56 [facility] (Rec: 12/02/23 13:56 [facility] [id number]) Compression Pump Treatment Treatment Location Left Arm Pressure Amount (mmHg) (mmHG) 40 Inflation Time (Seconds) 30 Deflation Time (Seconds) 10 Treatment Tolerance Good Treatment Comments during proximal MLD, deep breathing PT-OP-T Assessment and Plan Start: 11/15/23 16:24 Freq: Status: Active Protocol: Document 01/12/24 14:35 [facility] (Rec: 01/12/24 15:22 [facility] [id number]) Physical Therapy Assessment Goals Two Impairment lymphedema life impact scale 44% Short Term Goal (STG) decrease lymphedema life impact scale to no greater than 30% as measure of improved activity tolerance and quality of life STG Duration 01/01/24 [facility] Goal (LTG) Decrease lymphedema life impact scale to no greater than 20% as measure of improved activity tolerance and quality of life LTG Duration 02/15/24 One Impairment lymphedema left UE Short Term Goal (STG) Patient will be instructed in all aspects of lymphedema self -care to include skin care, elevation, self-massage, self- bandaging/compression options, and lymphedema exercises. 12/15/23: goal met STG Duration 01/01/24 [facility] Goal (LTG) Decrease patient?s lymphedema to a stable level (no increase or decrease greater than 1 cm over the course of 1 week), patient to be independent with all aspects of self-care for lymphedema, and will obtain appropriate compression garment for lymphedema management in the home, and sequential pneumatic pump to assist with self management in the home. Three Impairment left shoulder elevation limited to 113 degrees Impairment left shoulder elevation limited to 110 degrees Short Term Goal (STG) Patient to be instructed in HEP for purposes of addressing left UE ROM impairment 12/15/23: goal met, though review and guidance still necessary for correct performance. Active left shoulder elevation 115 degrees , passive to 140. Limited by weakness from CVA STG Duration goal met [facility] Goal (LTG) Patient to be independent and compliant with HEP and improve left shoulder elevation to at least 140 degrees for improved function and to facilitate lymphatic flow. LTG Duration 02/15/24 Assessment Summary Assessment Increase in circumferential measurements since not seen for almost 1 month, denial of compression garments, patient and not doing compression bandaging, patient continues to wear night garment for arm and hand; does not appear to be adequate compression. Physical Therapy Plan Frequency and Duration Frequency of Treatment 20 Duration of treatment (weeks) 12 Plan of Care Start Date 11/16/23 Plan of Care End Date 02/15/24 Therapeutic Interventions Therapeutic Interventions Home Exercise Program, Lymphedema Management,Manual Therapy,Patient/Caregiver Education,Self-Care/Home Management,Soft Tissue Mobilization,Taping, Therapeutic Activities, Therapeutic Exercises Modalities Vasopneumatic Devices Next Visit Focus/Plan Next Note Type Treatment Note Next Visit Plan Continue CDT, assure good fit of compression garments. Further education/review as indicated for home program.
--- NOTE | 2024-01-14 16:53 | PT.OTN ---
Current Diagnoses Lymphedema, not elsewhere classified (01/14/24) Edema, unspecified (01/14/24) Physical Therapy Treatment Note PT-OP-A Visit Information Start: 11/15/23 16:24 Freq: Status: Active Protocol: Document 01/14/24 13:00 SAK (Rec: 01/14/24 13:24 SAK [id number]) Out-Patient Physical Therapy Visit Information Visit Information Visit Type Treatment Note Visit Start Time 13:00 Visit Stop Time 14:25 Visit Number 16 Evaluation Information Evaluation Date 11/16/23 Precautions Precautions lymphoma PT-OP-B Current Condition Start: 11/15/23 16:24 Freq: Status: Active Protocol: Document 01/14/24 13:00 SAK (Rec: 01/14/24 13:24 SAK [id number]) Current Condition History of Current Condition Onset Date 2+ years Current Complaints lymphedema left UE History of Current Condition Previous treatment for lymphedema left UE with this PT, was discontinued due to insurance issues. Has velcro wrap compression wrap for left UE; hand and arm. Uses during the day and at night. Compression sleeves didn't work well for him, too difficult to don and doff and get to fit correctly, responded better to velcro wraps. Only has one compression garment due to cost, his has to help him get on correctly. Never got lymphedema pump. Was recently taken off a Cancer medication, discoloration that had been evident left UE has now disappeared. Is doing self massage, but not much exercise, states does a lot of sitting and is now noting left LE edema as well; wears knee high compression stockings that are too short, otherwise fit well. Feel he would benefit from thigh high compression on left. Has moderate knee pain bilaterally which limits his activity. PMH: lymphoma, TIA/CVA affecting left UE and LE, pacemaker. Reports he will be getting carpal tunnel surgery right hand. Prior Treatments and Tests CDT with this PT that was cut short due to insurance issues approximately 1 year ago. Treatment Goals Patient/Caregiver Goals Decrease lymphedema, patient to be able to self manage lymphedema with the assistance of his . Personal Factors Other Personal Factors That May Effect impaired memory Therapy/Recovery PT-OP-C Subjective Start: 11/15/23 16:24 Freq: Status: Active Protocol: Document 12/17/23 10:45 SAK (Rec: 12/17/23 11:32 [facility] [id number]) OP-PT Subjective Patient Comments Patient Comments Left bandaging on since last session for 2 days. Better tolerance, though 3 finger wraps eventually came of PT-OP-H Neuro Start: 11/15/23 16:24 Freq: Status: Active Protocol: Document 11/16/23 13:22 [facility] (Rec: 11/16/23 14:32 [facility] [id number]) Sensation Evaluation Gross Sensation Gross Sensation Left UE Impaired PT-OP-J Posture/Palpation/Skin Start: 11/15/23 16:24 Freq: Status: Active Protocol: Document 11/16/23 13:22 [facility] (Rec: 11/17/23 16:01 [facility] [id number]) Posture Evaluation Position Sitting Head/C-Spine Posture Forward Head T-Spine Posture Increased Kyphosis Shoulder Posture (L) Rounded,(R) Rounded Scapula Posture (L) Protracted,(R) Protracted Arm Posture (L) Internally Rotated,(R) Internally Rotated Palpation Assessment Location left UE Palpation Findings Edema,Soft Tissue Tightness Palpation Details fibrosis left hand, wrist, forearm Skin Assessment Edema Assessment left UE Edema Type Pitting Edema Degree 4+ Edema Appearance Firm,Taut Subjective Edema Description Tightness PT-OP-K Range of Motion Start: 11/15/23 16:24 Freq: Status: Active Protocol: Document 11/16/23 13:22 [facility] (Rec: 11/17/23 16:01 [facility] [id number]) Shoulder Goniometric Range of Motion Shoulder Left Active Shoulder ROM WFL No Testing Position Sitting Flexion 105 Extension 20 Abduction 95 External Rotation at 45 degrees 35 Abduction Internal Rotation Behind Back (text) S1 Right Shoulder ROM WFL Yes Shoulder ROM Limitations Shoulder ROM Limitations Soft Tissue Tightness,Muscle Weakness,Swelling Elbow/Forearm Range of Motion Elbow/Forearm left Elbow Flexion (degrees) 130 Elbow Extension (degrees) 5 Elbow Hyperextension 90 Pronation (degrees) 65 right Elbow/Forearm ROM WFL Yes Wrist Goniometric Range of Motion Wrist Left Wrist ROM WFL No Flexion Active (degrees) 20 Flexion Passive (degrees) 35 Extension Active (degrees) 10 Extension Passive (degrees) 25 Right Wrist ROM WFL Yes ROM Limitations Wrist Limitations of Range of Motion Soft Tissue Tightness,Muscle Weakness,Swelling Finger Goniometric Range of Motion Finger ROM Limitations Finger ROM Limitations Soft Tissue Tightness,Swelling Comments unable to make full fist with fingers and thumb due to lymphedema PT-OP-L Special Tests Start: 11/15/23 16:24 Freq: Status: Active Protocol: Document 11/16/23 13:22 [facility] (Rec: 11/17/23 16:01 [facility] [id number]) Special Tests Other Special Tests Special Tests Stemmer sign positive for lymphedema PT-OP-N Lymphedema Start: 11/15/23 16:24 Freq: Status: Active Protocol: Document 01/14/24 13:00 [facility] (Rec: 01/14/24 13:24 [facility] [id number]) Lymphedema Measurements Upper Extremity Circumference Measurements Left Affected MCP 24 cm Dorsum of Hand 25.7 cm Wrist 24.5 cm 5 cm From Wrist Crease 27.2 cm 10 cm From Wrist Crease 30.7 cm 15 cm From Wrist Crease 36.2 cm 20 cm From Wrist Crease 40.2 cm 25 cm From Wrist Crease 40.8 cm 30 cm From Wrist Crease 41 cm 35 cm From Wrist Crease 43 cm 40 cm From Wrist Crease 45.8 cm 45 cm From Wrist Crease 47.5 cm Elbow Joint 41.7 cm Axilla 48.7 cm PT-OP-Q Treatments Start: 11/15/23 16:24 Freq: Status: Active Protocol: Document 01/14/24 13:00 [facility] (Rec: 01/14/24 13:24 [facility] [id number]) Cardio Equipment Upper Body Ergometer (UBE) Duration (Minutes) 10 RPM 60 Seat Position 10 Height 3.5 Other to facilitate lymphatic flow after bandaging Therapeutic Exercises Supine Exercises shoulder flex Reps/Minutes 5x Comments manual stretchingt open/close hand Side left Reps/Minutes 10x wrist flex/ext Side left Reps/Minutes 10x elbow flex/ext Supine Exercise Name with pron/sup Side left Reps/Minutes 10x Comments arm overhead Sidelying Exercises ARM CIRCLES Reps/Minutes 10X EA DIRECTION Comments verbal and tactile cues for maximal ROM OPEN BOOK Side left Reps/Minutes 5X Comments verbal and tactile cues for segmantal and max ROM Lymphedema Treatment Manual Lymphatic Drainage Location left UE Duration 40 Lymphedema Wrapping Body Location left UE Materials Size F Tricofix, finger wraps, channel foam, Artiflex (3), Comprilan (6,8,10x3). Also channel foam entire arm dorsum of hand Sequential Lymphedema Exercises Location sidelying and supine Comments open book, arm circles, manual stretching into elevation, elbow, wrist, and hand AROM, trunk rotation PT-OP-R Modalities Start: 11/15/23 16:24 Freq: Status: Active Protocol: Document 12/02/23 12:56 [facility] (Rec: 12/02/23 13:56 [facility] [id number]) Compression Pump Treatment Treatment Location Left Arm Pressure Amount (mmHg) (mmHG) 40 Inflation Time (Seconds) 30 Deflation Time (Seconds) 10 Treatment Tolerance Good Treatment Comments during proximal MLD, deep breathing PT-OP-T Assessment and Plan Start: 11/15/23 16:24 Freq: Status: Active Protocol: Document 01/14/24 13:00 [facility] (Rec: 01/14/24 13:24 [facility] [id number]) Physical Therapy Assessment Goals Two Impairment lymphedema life impact scale 44% Short Term Goal (STG) decrease lymphedema life impact scale to no greater than 30% as measure of improved activity tolerance and quality of life 01/14/24: goal progress to40% STG Duration 01/01/24 Usp Goal (LTG) Decrease lymphedema life impact scale to no greater than 20% as measure of improved activity tolerance and quality of life LTG Duration 02/15/24 One Impairment lymphedema left UE Short Term Goal (STG) Patient will be instructed in all aspects of lymphedema self -care to include skin care, elevation, self-massage, self- bandaging/compression options, and lymphedema exercises. 12/15/23: goal met STG Duration goal met Usp Goal (LTG) Decrease patient?s lymphedema to a stable level (no increase or decrease greater than 1 cm over the course of 1 week), patient to be independent with all aspects of self-care for lymphedema, and will obtain appropriate compression garment for lymphedema management in the home, and sequential pneumatic pump to assist with self management in the home. 01/14/24: some goal progress with lymphedema reduction but pump and garments denied. Current compression garment designed for night use and not adequate. LTG Duration 02/15/24 Three Impairment left shoulder elevation limited to 113 degrees Impairment left shoulder elevation limited to 110 degrees Short Term Goal (STG) Patient to be instructed in HEP for purposes of addressing left UE ROM impairment 12/15/23: goal met, though review and guidance still necessary for correct performance. Active left shoulder elevation 115 degrees , passive to 140. Limited by weakness from CVA STG Duration goal met Prepper Goal (LTG) Patient to be independent and compliant with HEP and improve left shoulder elevation to at least 140 degrees for improved function and to facilitate lymphatic flow. 01/14/24: left shoulder elevation actively to 124 today LTG Duration 02/15/24 Assessment Summary Assessment Patient has been denied pneumatic pump due to improving from therapy, doesn' t qualify. Compression garments have also been denied , in appeal. MOst left UE circumferential measurements improved today after 2 days PT this week. Not able to sustain with self care at home at this time with current compression garments and without compression pump. Patient compliant with elevation, skin care, exercise , self MLD, compression with current night garment (unable to self bandage and has been unable to due to schedule ) but not adequate and night garment wearing out. Hopeful for approval for compression garments via insurance soon. Physical Therapy Plan Frequency and Duration Frequency of Treatment 20 Duration of treatment (weeks) 12 Plan of Care Start Date 11/16/23 Plan of Care End Date 02/15/24 Therapeutic Interventions Therapeutic Interventions Home Exercise Program, Lymphedema Management,Manual Therapy,Patient/Caregiver Education,Self-Care/Home Management,Soft Tissue Mobilization,Taping, Therapeutic Activities, Therapeutic Exercises Modalities Vasopneumatic Devices Next Visit Focus/Plan Next Note Type Treatment Note Next Visit Plan Continue CDT, assist as needed with obtaining appropriate compression, advise regarding all other aspects of self care .
--- NOTE | 2024-01-18 10:59 | PT-OP ANOTE ---
cancelled due to ill
--- NOTE | 2024-03-07 08:09 | PT-OP ANOTE ---
cancelled due to not feelling well.
--- NOTE | 2024-03-08 16:11 | PT.OPDS ---
Current Diagnoses Lymphedema, not elsewhere classified (01/14/24) Edema, unspecified (01/14/24) Visit Care Team Role Provider Type Danielle Kennedy DO Attending Provider Physician Family Provider Primary Care Provider Referring Provider Specialty: Medical Address: [address] [place] [address], [address], [place], [address] Email: [email or web address] Visit Number Visit Number 16 Discharge Summary PT-OP-B Current Condition Start: 11/15/23 16:24 Freq: Status: Active Protocol: Document 01/14/24 13:00 SAK (Rec: 01/14/24 13:24 SAK [id number]) Current Condition History of Current Condition Onset Date 2+ years Current Complaints lymphedema left UE History of Current Condition Previous treatment for lymphedema left UE with this PT, was discontinued due to insurance issues. Has velcro wrap compression wrap for left UE; hand and arm. Uses during the day and at night. Compression sleeves didn't work well for him, too difficult to don and doff and get to fit correctly, responded better to velcro wraps. Only has one compression garment due to cost, his has to help him get on correctly. Never got lymphedema pump. Was recently taken off a Cancer medication, discoloration that had been evident left UE has now disappeared. Is doing self massage, but not much exercise, states does a lot of sitting and is now noting left LE edema as well; wears knee high compression stockings that are too short, otherwise fit well. Feel he would benefit from thigh high compression on left. Has moderate knee pain bilaterally which limits his activity. PMH: lymphoma, TIA/CVA affecting left UE and LE, pacemaker. Reports he will be getting carpal tunnel surgery right hand. Prior Treatments and Tests CDT with this PT that was cut short due to insurance issues approximately 1 year ago. Treatment Goals Patient/Caregiver Goals Decrease lymphedema, patient to be able to self manage lymphedema with the assistance of his . Personal Factors Other Personal Factors That May Effect impaired memory Therapy/Recovery PT-OP-C Subjective Start: 11/15/23 16:24 Freq: Status: Active Protocol: Document 12/17/23 10:45 SAK (Rec: 12/17/23 11:32 SAK [id number]) OP-PT Subjective Patient Comments Patient Comments Left bandaging on since last session for 2 days. Better tolerance, though 3 finger wraps eventually came of PT-OP-H Neuro Start: 11/15/23 16:24 Freq: Status: Active Protocol: Document 11/16/23 13:22 [facility] (Rec: 11/16/23 14:32 [facility] [id number]) Sensation Evaluation Gross Sensation Gross Sensation Left UE Impaired PT-OP-J Posture/Palpation/Skin Start: 11/15/23 16:24 Freq: Status: Active Protocol: Document 11/16/23 13:22 [facility] (Rec: 11/17/23 16:01 [facility] [id number]) Posture Evaluation Position Sitting Head/C-Spine Posture Forward Head T-Spine Posture Increased Kyphosis Shoulder Posture (L) Rounded,(R) Rounded Scapula Posture (L) Protracted,(R) Protracted Arm Posture (L) Internally Rotated,(R) Internally Rotated Palpation Assessment Location left UE Palpation Findings Edema,Soft Tissue Tightness Palpation Details fibrosis left hand, wrist, forearm Skin Assessment Edema Assessment left UE Edema Type Pitting Edema Degree 4+ Edema Appearance Firm,Taut Subjective Edema Description Tightness PT-OP-K Range of Motion Start: 11/15/23 16:24 Freq: Status: Active Protocol: Document 11/16/23 13:22 [facility] (Rec: 11/17/23 16:01 [facility] [id number]) Shoulder Goniometric Range of Motion Shoulder Left Active Shoulder ROM WFL No Testing Position Sitting Flexion 105 Extension 20 Abduction 95 External Rotation at 45 degrees 35 Abduction Internal Rotation Behind Back (text) S1 Right Shoulder ROM WFL Yes Shoulder ROM Limitations Shoulder ROM Limitations Soft Tissue Tightness,Muscle Weakness,Swelling Elbow/Forearm Range of Motion Elbow/Forearm left Elbow Flexion (degrees) 130 Elbow Extension (degrees) 5 Elbow Hyperextension 90 Pronation (degrees) 65 right Elbow/Forearm ROM WFL Yes Wrist Goniometric Range of Motion Wrist Left Wrist ROM WFL No Flexion Active (degrees) 20 Flexion Passive (degrees) 35 Extension Active (degrees) 10 Extension Passive (degrees) 25 Right Wrist ROM WFL Yes ROM Limitations Wrist Limitations of Range of Motion Soft Tissue Tightness,Muscle Weakness,Swelling Finger Goniometric Range of Motion Finger ROM Limitations Finger ROM Limitations Soft Tissue Tightness,Swelling Comments unable to make full fist with fingers and thumb due to lymphedema PT-OP-L Special Tests Start: 11/15/23 16:24 Freq: Status: Active Protocol: Document 11/16/23 13:22 [facility] (Rec: 11/17/23 16:01 SAK [id number]) Special Tests Other Special Tests Special Tests Stemmer sign positive for lymphedema PT-OP-N Lymphedema Start: 11/15/23 16:24 Freq: Status: Active Protocol: Document 01/14/24 13:00 [facility] (Rec: 01/14/24 13:24 [facility] [id number]) Lymphedema Measurements Upper Extremity Circumference Measurements Left Affected MCP 24 cm Dorsum of Hand 25.7 cm Wrist 24.5 cm 5 cm From Wrist Crease 27.2 cm 10 cm From Wrist Crease 30.7 cm 15 cm From Wrist Crease 36.2 cm 20 cm From Wrist Crease 40.2 cm 25 cm From Wrist Crease 40.8 cm 30 cm From Wrist Crease 41 cm 35 cm From Wrist Crease 43 cm 40 cm From Wrist Crease 45.8 cm 45 cm From Wrist Crease 47.5 cm Elbow Joint 41.7 cm Axilla 48.7 cm PT-OP-T Assessment and Plan Start: 11/15/23 16:24 Freq: Status: Active Protocol: Document 03/08/24 16:06 [facility] (Rec: 03/08/24 16:06 [facility] [id number]) Physical Therapy Plan Discharge Physical Therapy Discharge Reasons Change in Medical Status Discharge Comments Has been unable to attend PT due to being ill. Will need new prescription.
== END 2024-03-10 13:23 | disposition home or self-care (01) ==
LOC: PHYS 13:00
PROVIDERS: Family Provider Family Medicine; PCP Family Medicine; Referring Provider Family Medicine; Visit Provider Family Medicine
DX: R60.9 Edema, unspecified (principal); I89.0 Lymphedema, not elsewhere classified
CPT/HCPCS: 97016; 97110; 97140; 97163; 97535

== ENCOUNTER 2024-01-20 07:37 | Inpatient (IN) | payer OTHER, SELFPAY ==
[2024-01-20] VITALS (29 sets, daily range): BP systolic 103–210; BP diastolic 60–116; PULSE 63–103; RESP 16–40; TEMP 36.5–37.4; O2SAT 90–97; BMI 42.6
--- NOTE | 2024-01-20 08:06 | ED_ITS ---
HPI - SOB/Dyspnea General Chief Complaint: Shortness of Breath/Dyspnea Stated Complaint: shallow breathing Time Seen by Provider: 01/20/24 07:51 History of Present Illness HPI Narrative: Patient here with . History of atrial fibrillation lymphoma congestive heart failure. Is not on home oxygen. No COPD. Patient has been short of breath without any chest pain for the past 24 hours. Worse with exertion. Worse with lying down. Has chronic left greater than right leg swelling which is not new he states. Takes Lasix as needed. No recent echocardiogram. Patient just saw primary care 5 days ago and was not short of breath at the time. Has had a cough cold congestion recently since seeing primary care provider. 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 Related Data Home Medications Medication Instructions Recorded Confirmed apixaban 5 mg tablet 5 mg PO BID 08/07/19 01/20/24 torsemide 20 mg tablet 20 mg PO DAILY PRN Shortness Of 09/13/21 01/20/24 Breath cholecalciferol (vitamin D3) 125 125 mcg PO DAILY 07/21/22 01/20/24 mcg (5,000 unit) capsule coenzyme Q10 300 mg capsule 300 mg PO DAILY 07/21/22 01/20/24 famotidine-Ca carb-mag hydrox 10 1 tab PO DAILY PRN inde 07/21/22 01/20/24 mg-800 mg-165 mg chewable tablet (Pepcid Complete) omega-3 fatty acids 1,000 mg 1,000 mg PO DAILY 07/21/22 01/20/24 capsule Previous Rx's Medication Instructions Recorded fluticasone propionate 50 2 spray intranasal DAILY #16 grams 07/14/23 mcg/actuation nasal spray,suspension (Flonase Allergy Relief) losartan 50 mg tablet 50 mg PO BID #180 tabs 08/12/23 metoprolol succinate 50 mg 25 mg (1/2 x 50 mg) PO BID #90 tabs 09/30/23 tablet,extended release 24 hr amlodipine 5 mg tablet 5 mg PO DAILY #90 tabs 12/14/23 Disabled Parking Permit #1 [id number] 01/04/24 Allergies Allergy/AdvReac Type Severity Reaction Status Date / Time No Known Drug Allergies Allergy Verified 01/20/24 08:05 Review of Systems Review of Systems Narrative: GENERAL: Negative chills, fatigue, malaise, fever, sweats. HEENT: Negative sinus pain, ear pain, sore throat RESPIRATORY: Positive dyspnea, cough CARDIOVASCULAR: Negative chest pain, palpitations GASTROINTESTINAL: Negative nausea, vomiting, abdominal pain : Negative dysuria, frequency, hematuria MUSCULOSKELETAL: Negative muscle or bony pain SKIN: Negative rash, skin lesions NEUROLOGIC: Negative weakness, numbness ROS Unobtainable: All systems reviewed & are unremarkable except as noted in HPI and below Patient History Medical History Plantar fasciitis (10/02/10) Melanoma (~1979) Tinea pedis Onychomycosis Complete heart block Atrial fibrillation Osteopenia of femoral neck, bilateral (~12/2018) Mantle cell lymphoma (~10/2017) Squamous cell carcinoma (08/2019) CVA (cerebral vascular accident) (~11/2017) Pacemaker (~04/2018) Mild aortic stenosis by prior echocardiogram (08/13/11) Wears glasses Chronic back pain Mumps Measles Chicken pox Kidney stones (~1975) Skin cancer (~2004) TIA (transient ischemic attack) (~2009) Surgical History S/P TAVR (transcatheter aortic valve replacement) (~04/2018) Anesthesia History of tonsillectomy Status post cardiac pacemaker procedure (~05/14/18) S/P bronchoscopy with biopsy Family History Father Lung cancer Mother Parkinson's disease Sister Bladder cancer Social History household members: spouse Smoking Status: Never smoker alcohol intake: never substance use type: does not use Smoking Status: Never smoker alcohol intake frequency: 0-2 drinks per day Substance Use Type: does not use Exam Narrative Exam Narrative: GENERAL: in no distress, not toxic not dyspneic HEAD: Normocephalic. EYES: Pupils equal round ENT: Mucous membranes moist. NECK: Trachea midline. CARDIOVASCULAR: Irregular irregular RESPIRATORY: Clear to auscultation. Breath sounds equal bilaterally. No wheezes, rales, or rhonchi. Speaking near full sentences. GASTROINTESTINAL: Abdomen soft, non-tender EXTREMITIES: No gross deformities. Left greater than right calf grossly. 3+ leg edema on the left, 2+ on the right. BACK: No flank tenderness. NEURO: AOx4. Clear speech SKIN: Warm and dry PSYCH: Not anxious, is cooperative Initial Vital Signs Initial Vital Signs: Vital Signs Pulse Rate 81 01/20/24 07:46 Pulse Oximetry 95 01/20/24 07:46 Course Orders Ordered: Acetaminophen (Acetaminophen 325 Mg Tablet) 650 mg PO Q6H PRN PRN Reason: Fever/Mild Pain (1-3) Last Admin: 01/23/24 11:03 Dose: 650 mg Documented By: Admin: 01/22/24 08:40 Dose: 650 mg Documented By: Admin: 01/21/24 20:45 Dose: 650 mg Documented By: AM Albuterol/Ipratropium (Albuterol/Ipratropium 3 Ml Ampul) 3 ml INH RTQ4HR PRN PRN Reason: Shortness Of Breath Last Admin: 01/23/24 20:15 Dose: 3 ml Documented By: Admin: 01/22/24 13:30 Dose: 3 ml Documented By: Admin: 01/21/24 20:52 Dose: 3 ml Documented By: Admin: 01/21/24 05:18 Dose: 3 ml Documented By: AMBER Alprazolam (Alprazolam 0.25 Mg Tablet) 0.5 mg PO Q6H PRN PRN Reason: Anxiety Last Admin: 01/24/24 05:00 Dose: 0.5 mg Documented By: Admin: 01/23/24 00:45 Dose: 0.5 mg Documented By: AM Amlodipine Besylate (Amlodipine 5 Mg Tablet) 5 mg PO DAILY [facility] Last Admin: 01/24/24 08:13 Dose: Not Given Documented By: Admin: 01/23/24 08:53 Dose: 5 mg Documented By: Admin: 01/22/24 08:39 Dose: 5 mg Documented By: Admin: 01/21/24 10:20 Dose: Not Given Documented By: LDV Apixaban (Apixaban 5 Mg Tablet) 5 mg PO BID [facility] Last Admin: 01/24/24 08:07 Dose: 5 mg Documented By: Admin: 01/23/24 20:38 Dose: 5 mg Documented By: Admin: 01/23/24 08:53 Dose: 5 mg Documented By: Admin: 01/22/24 20:27 Dose: 5 mg Documented By: Admin: 01/22/24 08:36 Dose: 5 mg Documented By: Admin: 01/21/24 20:45 Dose: 5 mg Documented By: Admin: 01/21/24 08:50 Dose: 5 mg Documented By: Admin: 01/20/24 20:16 Dose: 5 mg Documented By: CT Artificial Tears (Carboxymethylcellulose Drops) 1 drops EYE-BOTH PRN PRN PRN Reason: Dry Eye(s) Benzocaine (Benzocaine/Menthol 1 [place] Pkt) 1 each PO Q1HR PRN PRN Reason: Sore Throat Last Admin: 01/24/24 08:11 Dose: 1 each Documented By: Admin: 01/23/24 20:37 Dose: 1 each Documented By: Admin: 01/23/24 11:03 Dose: 1 each Documented By: Admin: 01/22/24 17:20 Dose: 1 each Documented By: LOI Benzonatate (Benzonatate 100 Mg Capsule) 100 mg PO TID PRN PRN Reason: Cough Last Admin: 01/24/24 08:11 Dose: 100 mg Documented By: Admin: 01/23/24 09:00 Dose: 100 mg Documented By: Admin: 01/22/24 17:20 Dose: 100 mg Documented By: LOI Erythromycin (Erythromycin Ophth 1 Gm Oint) 1 applic EYE-BOTH BID [facility] Fluticasone Propionate (Fluticasone 120 [place]/16 Gm [place].Susp) 2 spray NASAL DAILY [facility] Last Admin: 01/24/24 08:08 Dose: Not Given Documented By: Admin: 01/23/24 08:54 Dose: Not Given Documented By: Admin: 01/22/24 11:35 Dose: Not Given Documented By: Admin: 01/21/24 10:03 Dose: Not Given Documented By: GUILHERME Guaifenesin (Guaifenesin Solution 100 Mg/5 Ml Udc) 200 mg PO Q4HR PRN PRN Reason: Cough Guaifenesin/Codeine Phosphate (Codeine/Guaifenesin Liquid 5ml Udc) 5 ml PO Q6H PRN PRN Reason: Cough Last Admin: 01/24/24 12:54 Dose: 5 ml Documented By: Admin: 01/24/24 06:58 Dose: 5 ml Documented By: Admin: 01/23/24 20:35 Dose: 5 ml Documented By: Admin: 01/23/24 11:03 Dose: 5 ml Documented By: Admin: 01/23/24 00:45 Dose: 5 ml Documented By: AM Losartan Potassium (Losartan 50 Mg Tablet) 50 mg PO BID [facility] Last Admin: 01/24/24 08:13 Dose: Not Given Documented By: Admin: 01/23/24 20:35 Dose: 50 mg Documented By: Admin: 01/23/24 08:54 Dose: 50 mg Documented By: Admin: 01/22/24 20:28 Dose: 50 mg Documented By: Admin: 01/22/24 08:39 Dose: 50 mg Documented By: Admin: 01/21/24 20:45 Dose: 50 mg Documented By: Admin: 01/21/24 10:21 Dose: Not Given Documented By: Admin: 01/20/24 20:17 Dose: Not Given Documented By: CT Metoprolol Succinate (Metoprolol Er 50 Mg Tablet) 25 mg PO BID [facility] Admin: 01/24/24 08:12 Dose: Not Given Documented By: Admin: 01/23/24 20:37 Dose: 25 mg Documented By: Admin: 01/23/24 08:53 Dose: 25 mg Documented By: Admin: 01/22/24 20:27 Dose: 25 mg Documented By: Admin: 01/22/24 08:36 Dose: 25 mg Documented By: Admin: 01/21/24 20:45 Dose: 25 mg Documented By: Admin: 01/21/24 08:50 Dose: 25 mg Documented By: Admin: 01/20/24 22:39 Dose: 25 mg Documented By: Admin: 01/20/24 20:17 Dose: Not Given Documented By: CT Naloxone HCl (Naloxone 0.4 Mg/Ml Vial) 0.2 mg IV Q2MIN PRN PRN Reason: Opiate Reversal Ondansetron HCl (Ondansetron 4 Mg Odt) 4 mg PO Q8HR PRN PRN Reason: Nausea And Vomiting Polyethylene Glycol (Polyethylene Glycol 3350 17 Gm Powd.Pack) 17 gm PO BID [facility] Admin: 01/24/24 08:07 Dose: Not Given Documented By: Admin: 01/23/24 20:38 Dose: Not Given Documented By: Admin: 01/23/24 08:53 Dose: 17 gm Documented By: Admin: 01/22/24 21:20 Dose: Not Given Documented By: Admin: 01/22/24 14:36 Dose: 17 gm Documented By: LOI Vitamin D (Cholecalciferol (Vitamin D3) 5,000 Unit Tablet) 5,000 unit PO DAILY [facility] Last Admin: 01/24/24 08:07 Dose: 5,000 unit Documented By: Admin: 01/23/24 09:50 Dose: 5,000 unit Documented By: Admin: 01/22/24 09:26 Dose: 5,000 unit Documented By: Admin: 01/21/24 08:51 Dose: 5,000 unit Documented By: GUILHERME Discontinued Medications Acetaminophen (Acetaminophen 325 Mg Tablet) 975 mg PO NOW ONE Stop: 01/20/24 11:29 Last Admin: 01/20/24 11:43 Dose: 975 mg Documented By: RASHI Aspirin (Aspirin 81 Mg Chew Tab) 324 mg PO NOW ONE Stop: 01/20/24 08:06 Last Admin: 01/20/24 08:14 Dose: Not Given Documented By: RASHI Erythromycin (Erythromycin Ophth 1 Gm Oint) 1 applic EYE-BOTH NOW ONE Stop: 01/24/24 11:34 Last Admin: 01/24/24 12:54 Dose: 1 applic Documented By: STUART Furosemide (Furosemide 40 Mg/4 Ml Vial) 40 mg IV NOW ONE Stop: 01/21/24 05:27 Last Admin: 01/21/24 06:01 Dose: 40 mg Documented By: TANYA Ceftriaxone Sodium 2,000 mg/ (Sodium Chloride) 100 mls @ 200 mls/hr IV NOW ONE Stop: 01/20/24 09:56 Last Infusion: 01/20/24 11:11 Dose: Infused Documented By: Admin: 01/20/24 10:35 Dose: 200 mls/hr Documented By: RASHI Doxycycline Hyclate 100 mg/ (Sodium Chloride) 100 mls @ 100 mls/hr IV NOW ONE Stop: 01/20/24 09:56 Last Infusion: 01/20/24 12:28 Dose: Infused Documented By: Admin: 01/20/24 11:12 Dose: 100 mls/hr Documented By: RASHI Ceftriaxone Sodium 1,000 mg/ (Sodium Chloride) 100 mls @ 200 mls/hr IV Q24H [facility] Stop: 01/24/24 10:29 Last Infusion: 01/24/24 12:37 Dose: Infused Documented By: Admin: 01/24/24 09:49 Dose: 200 mls/hr Documented By: Infusion: 01/23/24 10:09 Dose: Infused Documented By: Admin: 01/23/24 09:39 Dose: 200 mls/hr Documented By: Infusion: 01/22/24 12:04 Dose: Infused Documented By: Admin: 01/22/24 11:34 Dose: 200 mls/hr Documented By: Infusion: 01/21/24 11:32 Dose: Infused Documented By: Admin: 01/21/24 11:02 Dose: 200 mls/hr Documented By: BAYLEE Azithromycin 500 mg/ Dextrose 250 mls @ 250 mls/hr IV Q24H [facility] Stop: 01/22/24 12:01 Last Admin: 01/22/24 12:26 Dose: 250 mls/hr Documented By: Infusion: 01/21/24 13:11 Dose: Infused Documented By: Admin: 01/21/24 12:11 Dose: 250 mls/hr Documented By: BAYLEE Sodium Chloride (Sodium Chloride 0.9% Flush) 50 ml IV NOW ONE Stop: 01/20/24 10:21 Last Admin: 01/20/24 10:34 Dose: Not Given Documented By: RASHI Vital Signs Vital signs: Vital Signs - 8 hr 01/20/24 07:46 01/20/24 08:00 01/20/24 08:00 Temperature Pulse Rate 81 96 H Respiratory Rate 33 H Blood Pressure 116/60 Pulse Oximetry 95 91 Oxygen Delivery Method Oxygen Flow Rate 01/20/24 08:01 01/20/24 08:30 01/20/24 08:31 Temperature 98.3 F Pulse Rate 85 82 Respiratory Rate 40 H 30 H Blood Pressure 127/91 H 161/82 H Pulse Oximetry 95 96 Oxygen Delivery Method Room Air Nasal Cannula Oxygen Flow Rate 2 01/20/24 08:31 01/20/24 09:00 01/20/24 09:30 Temperature Pulse Rate 85 78 87 Respiratory Rate 30 H 27 H 34 H Blood Pressure Pulse Oximetry 96 96 96 Oxygen Delivery Method Nasal Cannula Nasal Cannula Nasal Cannula Oxygen Flow Rate 2 2 2 01/20/24 09:31 01/20/24 09:31 01/20/24 10:00 Temperature Pulse Rate 81 79 Respiratory Rate 34 H Blood Pressure 155/116 H Pulse Oximetry 95 93 Oxygen Delivery Method Nasal Cannula Oxygen Flow Rate 2 01/20/24 10:14 01/20/24 10:30 01/20/24 10:39 Temperature Pulse Rate 103 H 73 Respiratory Rate 26 H 31 H Blood Pressure 134/82 Pulse Oximetry 90 L 92 Oxygen Delivery Method Oxygen Flow Rate 01/20/24 10:39 01/20/24 11:00 01/20/24 11:01 Temperature Pulse Rate 80 77 78 Respiratory Rate 30 H 30 H 32 H Blood Pressure Pulse Oximetry 92 94 93 Oxygen Delivery Method Oxygen Flow Rate 01/20/24 11:01 01/20/24 11:30 01/20/24 11:31 Temperature Pulse Rate 82 81 Respiratory Rate 33 H 31 H Blood Pressure 173/87 H Pulse Oximetry 95 94 Oxygen Delivery Method Oxygen Flow Rate 01/20/24 11:31 01/20/24 11:48 01/20/24 11:48 Temperature Pulse Rate 80 Respiratory Rate 34 H Blood Pressure 177/89 H 158/67 H Pulse Oximetry 94 Oxygen Delivery Method Oxygen Flow Rate 01/20/24 12:00 01/20/24 12:01 01/20/24 12:01 Temperature Pulse Rate 82 81 Respiratory Rate 33 H 31 H Blood Pressure 210/95 H Pulse Oximetry 95 94 Oxygen Delivery Method Oxygen Flow Rate MDM - SOB/Dyspnea Lab Data 01/23/24 06:10 01/23/24 06:10 Labs: Lab Results 01/20/24 01/20/24 01/20/24 Range/Units 07:58 08:07 09:59 WBC 16.2 H (4.5-11.0) X10^3/uL RBC 5.42 (4.5-5.9) X10^6/uL Hgb 16.4 (13.5-17.5) g/dL Hct 49.1 (41-53) % MCV 90.6 (80-100) fL MCH 30.3 (26-34) PG MCHC 33.5 (30-36) % RDW 15.4 H (11.6-14.8) % Plt Count 206 (150-400) X10^3/uL Neut % (Auto) 94.7 H (50-75) % Lymph % (Auto) 1.5 L (25-40) % Bureau % (Auto) 3.4 (3-14) % Eos % (Auto) 0.3 L (2-4) % Baso % (Auto) 0.1 (0-2) % Neut # (Auto) 18758 H (8447-4466) /uL Lymph # (Auto) 300 L (1481-5035) /uL Bureau # (Auto) 500 (0-900) /uL Eos # (Auto) 0 (0-450) /uL Baso # (Auto) 0 (0-100) /uL PT 20.2 H (9.4-12.5) SECONDS INR 1.8 H (0.9-1.3) APTT 39 H (25.1-36.5) SECONDS Sodium 135 L (137-145) mmol/L Potassium 4.2 (3.4-5.1) mmol/L Chloride 104 (98-107) mmol/L Carbon Dioxide 25 (22-32) mmol/L BUN 18 (9-20) mg/dL Creatinine 1.06 (0.66-1.25) mg/dL Estimated GFR > 60 (>60) mL/min BUN/Creatinine Ratio 17.0 (6-22) Glucose 183 H (80-110) mg/dL Lactate (0.7-2.1) mmol/L Calcium 9.2 (8.4-10.2) mg/dL Total Bilirubin 2.0 H (0.2-1.3) mg/dL AST 39 (17-59) IU/L ALT 31 (<50) IU/L Alkaline Phosphatase 74 (38-126) U/L Total Creatine Kinase 184 H 150 (55-170) U/L Troponin I 0.067 H 0.067 H (0.01-0.034) ng/mL NT-Pro-B Natriuret Pep 5450 H (<450) pg/mL Total Protein 6.9 (6.3-8.2) g/dL Albumin 3.9 (3.5-5.0) g/dL Globulin 3.0 (1.7-4.1) g/dL Albumin/Globulin Ratio 1.3 (1.0-2.8) Lipase 18 L (23-300) U/L Procalcitonin 4.67 H (<0.5) ng/mL Chlamy pneumoniae PCR Not detected (Not Detect) Adenovirus (PCR) Not detected (Not Detect) B. pertussis DNA (PCR) Not detected (Not Detect) B.parapertussis DNA PCR Not detected (Not Detecte) Coronavirus OC43 (PCR) Not detected (Not Detect) Coronavirus HKU1 (PCR) Not detected (Not Detect) Coronavirus 229E (PCR) Not detected (Not Detect) SARS-CoV-2 (PCR) Not detected (Not Detecte) Coronavirus NL63 (PCR) Not detected (Not Detect) Human Metapneumovir PCR Not detected (Not Detect) Influenza Type A (PCR) Not detected (Not Detect) Influenza Type B (PCR) Not detected (Not Detect) M. pneumoniae (PCR) Not detected (Not Detect) Parainfluenza 1 (PCR) Not detected (Not Detect) Parainfluenza 2 (PCR) Not detected (Not Detect) Parainfluenza 3 (PCR) Not detected (Not Detect) Parainfluenza 4 (PCR) Not detected (Not Detect) RSV (PCR) Not detected (Not Detect) Entero/Rhino (PCR) Not detected (Not Detect) 01/20/24 Range/Units 10:20 WBC (4.5-11.0) X10^3/uL RBC (4.5-5.9) X10^6/uL Hgb (13.5-17.5) g/dL Hct (41-53) % MCV (80-100) fL MCH (26-34) PG MCHC (30-36) % RDW (11.6-14.8) % Plt Count (150-400) X10^3/uL Neut % (Auto) (50-75) % Lymph % (Auto) (25-40) % Bureau % (Auto) (3-14) % Eos % (Auto) (2-4) % Baso % (Auto) (0-2) % Neut # (Auto) (1874-2313) /uL Lymph # (Auto) (3389-4703) /uL Bureau # (Auto) (0-900) /uL Eos # (Auto) (0-450) /uL Baso # (Auto) (0-100) /uL PT (9.4-12.5) SECONDS INR (0.9-1.3) APTT (25.1-36.5) SECONDS Sodium (137-145) mmol/L Potassium (3.4-5.1) mmol/L Chloride (98-107) mmol/L Carbon Dioxide (22-32) mmol/L BUN (9-20) mg/dL Creatinine (0.66-1.25) mg/dL Estimated GFR (>60) mL/min BUN/Creatinine Ratio (6-22) Glucose (80-110) mg/dL Lactate 1.8 (0.7-2.1) mmol/L Calcium (8.4-10.2) mg/dL Total Bilirubin (0.2-1.3) mg/dL AST (17-59) IU/L ALT (<50) IU/L Alkaline Phosphatase (38-126) U/L Total Creatine Kinase (55-170) U/L Troponin I (0.01-0.034) ng/mL NT-Pro-B Natriuret Pep (<450) pg/mL Total Protein (6.3-8.2) g/dL Albumin (3.5-5.0) g/dL Globulin (1.7-4.1) g/dL Albumin/Globulin Ratio (1.0-2.8) Lipase (23-300) U/L Procalcitonin (<0.5) ng/mL Chlamy pneumoniae PCR (Not Detect) Adenovirus (PCR) (Not Detect) B. pertussis DNA (PCR) (Not Detect) B.parapertussis DNA PCR (Not Detecte) Coronavirus OC43 (PCR) (Not Detect) Coronavirus HKU1 (PCR) (Not Detect) Coronavirus 229E (PCR) (Not Detect) SARS-CoV-2 (PCR) (Not Detecte) Coronavirus NL63 (PCR) (Not Detect) Human Metapneumovir PCR (Not Detect) Influenza Type A (PCR) (Not Detect) Influenza Type B (PCR) (Not Detect) M. pneumoniae (PCR) (Not Detect) Parainfluenza 1 (PCR) (Not Detect) Parainfluenza 2 (PCR) (Not Detect) Parainfluenza 3 (PCR) (Not Detect) Parainfluenza 4 (PCR) (Not Detect) RSV (PCR) (Not Detect) Entero/Rhino (PCR) (Not Detect) Imaging Data CT scan - chest: Radiologist's Impression: [address] [address] [address] Scan Report Signed Patient: Pierce Voss MR#: [id number] : 1950 Acct:[id number] Age/Sex: 74 / M Date of Service: 01/20/24 Loc: ED Accession Number: [id number] Procedure: CT angio chest PE protocol Ordering Provider: Akhil Apple MD PROCEDURE: CT ANGIO CHEST PE PROTOCOL INDICATIONS: Dyspnea TECHNIQUE: After the administration of intravenous contrast, 2 mm thick sections acquired from the pulmonary apices to the posterior costophrenic angles. 3-dimensional maximum intensity projection (MIP) coronal and sagittal reformats were then acquired through the thorax. For radiation dose reduction, the following was used: automated exposure control, adjustment of mA and/or kV according to patient size. COMPARISON: None. FINDINGS: Image quality: Diagnostic. Pulmonary arteries: Pulmonary arteries are normal in size, and demonstrate no intraluminal filling defects to suggest central pulmonary embolism. Lower Neck: No enlarged lymph nodes. Thyroid: No thyroid nodules which require sonographic follow up, per consensus guidelines. Axillae: No enlarged lymph nodes. Chest Wall: Left chest wall generator with cardiac leads. Bones: Unremarkable. Lungs and Pleura: Multifocal consolidation, predominantly within the left lower lobe and right middle lobe. Superimposed bronchial thickening. Airways are clear otherwise. Heart: Heart size is enlarged, with a prosthetic aortic valve. No pericardial effusion. Thoracic Vessels: No aortic aneurysm. Mediastinum and Flor: Reactive mediastinal lymph nodes. Esophagus: No wall thickening. No hiatal hernia. Upper Abdomen: Reflux of contrast into the IVC, indicating elevated right heart pressures. IMPRESSION: No pulmonary embolus. Multifocal consolidation, either infection or possibly aspiration due to distribution. Correlate with risk factors for aspiration and consider speech pathology referral. Recommend follow-up in 1-2 months with chest x-ray to ensure resolution. Reflux of contrast into the IVC, indicating elevated heart pressures. Dictated by: Kofi Beckwith M.D. on 01/20/2024 at 9:30 Approved by: Kofi Beckwith M.D. on 01/20/2024 at 9:35 US - DVT: Radiologist's Impression: [address] [id number] Ultrasound Report Signed Patient: Pierce Voss MR#: [id number] : 1950 Acct:[id number] Age/Sex: 74 / M Date of Service: 01/20/24 Loc: ED Accession Number: [id number] Procedure: US periph venous low extrem bi Ordering Provider: Akhil Apple MD PROCEDURE: US PERIPH VENOUS LOW EXTREM BI INDICATIONS: Dyspnea TECHNIQUE: Real-time imaging, as well as color and pulse Doppler interrogation, were performed of the deep veins of both legs from the inguinal ligament to the popliteal fossa, with documentation of the visualized calf veins. COMPARISON: None. FINDINGS: Right: The common femoral, femoral, popliteal, and the visualized calf veins are normally compressible, and free of intraluminal thrombus. Color and pulse Doppler demonstrate normal phasic intravascular flow. There is normal augmentation response to distal compression maneuver. Venous stasis in the greater saphenous/common femoral to popliteal veins are present. Complex popliteal fossa cyst measuring 2.5 cm. Left: The common femoral, femoral, popliteal, and the visualized calf veins are normally compressible, and free of intraluminal thrombus. Color and pulse Doppler demonstrate normal phasic intravascular flow. There is normal augmentation response to distal compression maneuver. Venous stasis is present within the greater saphenous vein through common femoral vein and popliteal veins. IMPRESSION: No findings of deep venous thrombosis in either lower extremity. Complex right Maki's cyst. Venous stasis as above without superficial thrombophlebitis. Dictated by: Jennifer Baldwin M.D. on 01/20/2024 at 9:48 Approved by: Jennifer Baldwin M.D. on 01/20/2024 at 9:50 [facility] Narrative Medical decision making narrative: Patient here with . History of atrial fibrillation lymphoma congestive heart failure. Is not on home oxygen. No COPD. Patient has been short of breath without any chest pain for the past 24 hours. Worse with exertion. Worse with lying down. Has chronic left greater than right leg swelling which is not new he states. Takes Lasix as needed. No recent echocardiogram. Patient just saw primary care 5 days ago and was not short of breath at the time. Has had a cough cold congestion recently since seeing primary care provider. 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 After history and exam EKG CBC CMP troponin BNP respiratory panel CT chest leg Dopplers [facility] Medical records reviewed: No recent visit for this complaint Differential considered: Includes but not limited to CHF COPD COVID rhino virus pneumonia influenza Lab Test results independently reviewed as above. Pertinent findings: WBC 16.2 hemoglobin 16.4 INR 1.8 sodium 135 BUN 18 creatinine 1.06 GFR greater than 60 troponin 0.067 BNP 5450 Respiratory panel negative Repeat troponin 0.067, no change Procalcitonin 4.67 lactic acid 1.8 Independently reviewed EKG atrial fibrillation rate 75 incomplete right bundle- branch block Imaging studies independently reviewed: CT chest no PE, there is multifocal consolidation likely pneumonia Ultrasound legs no DVT Consultations: 10:12 a[address] Sp[address] with Cardiology Dr. Oneal, would not start non-STEMI pathway. Likely cardiac demand from pneumonia. No need for heparin or transfer. Recommends echocardiogram during admission 12:[address] tang, hospitalist, will admit patient Treatments: Rocephin doxycycline Re-evaluations: 10:00 a.m.. Updated patient results and agrees for admission. Feels much better with supplemental oxygen nasal cannula. at bedside and agree for admission for pneumonia. 10:10 a.m.. Patient 90% room air on ambulation but very tachypneic and short of breath. Return patient back to his room. Discussion: Appropriate for admission. Patient requiring supplemental oxygen. He is dyspneic on exertion. Becomes hypoxic. Antibiotics have been started for community-acquired pneumonia. Troponin likely cardiac demand from pneumonia. Diagnosis: Community-acquired pneumonia Discharge Plan Departure Patient Disposition: Admitted As Inpatient Clinical Impression: Community acquired pneumonia Qualifiers: Laterality: unspecified laterality Qualified Code(s): J18.9 - Pneumonia, unspecified organism Admit Date/Time: 01/20/24 12:25 Admit Provider: Ivan Tang
--- NOTE | 2024-01-20 08:13 | EKG_ITS ---
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
[2024-01-20 08:15] LABS: INR 1.8 (0.9-1.3); Prothrombin Time 20.2 SECONDS (9.4-12.5)
[2024-01-20 08:16] LABS: Add Manual Diff / Slide Review NO; Basophils Absolute Auto 0 /uL (0-100); Basophils Percent Auto 0.1 % (0-2); Eosinophils Absolute Auto 0 /uL (0-450); Eosinophils Percent Auto 0.3 % (2-4); Hematocrit 49.1 % (41-53); Hemoglobin 16.4 g/dL (13.5-17.5); Lymphocytes Absolute Auto 300 /uL (1100-4500); Lymphocytes Percent Auto 1.5 % (25-40); Mean Corpuscular HGB Conc 33.5 % (30-36); Mean Corpuscular Hemoglobin 30.3 PG (26-34); Mean Corpuscular Volume 90.6 fL (80-100); Monocytes Absolute Auto 500 /uL (0-900); Monocytes Percent Auto 3.4 % (3-14); Neutrophils Absolute Auto 15300 /uL (1500-7000); Neutrophils Percent Auto 94.7 % (50-75); Platelet Count 206 X10^3/uL (150-400); Red Blood Cell Count 5.42 X10^6/uL (4.5-5.9); Red Cell Distribution Width 15.4 % (11.6-14.8); White Blood Cell Count 16.2 X10^3/uL (4.5-11.0)
[2024-01-20 08:17] LABS: PTT Partial Thromboplastin Tim 39 SECONDS (25.1-36.5)
[2024-01-20 08:21] LABS: Alanine Aminotransferase 31 IU/L (<50); Albumin 3.9 g/dL (3.5-5.0); Albumin Globulin Ratio 1.3 (1.0-2.8); Alkaline Phosphatase 74 U/L (38-126); Aspartate Aminotransferase 39 IU/L (17-59); Blood Urea Nitrogen 18 mg/dL (9-20); Calcium 9.2 mg/dL (8.4-10.2); Carbon Dioxide 25 mmol/L (22-32); Chloride 104 mmol/L (98-107); Creatine Kinase 184 U/L (55-170); Estimated Glomerular Filt Rate > 60 mL/min (>60); Glucose 183 mg/dL (80-110); HEMOLYSIS < 15 (0-50); Lipase 18 U/L (23-300); Potassium 4.2 mmol/L (3.4-5.1); Sodium 135 mmol/L (137-145); Total Protein 6.9 g/dL (6.3-8.2)
[2024-01-20 08:33] LABS: NT-proBNP (BNP-Adult 18+) 5450 pg/mL (<450); Troponin I 0.067 ng/mL (0.01-0.034)
--- NOTE | 2024-01-20 08:34 | PC.NURSE ---
Pt denies chest pain. Pt reports worsening sob x3 days. Pt states he has a medication to take as needed of Turosemide but states he does not usually take it. Breath sounds diminished throughout. Pt denies hx of COPD, asthma
[2024-01-20 09:09] LABS: Adenovirus Not Detected (Not Detect); B. parapertussis Not Detected (Not Detecte); Bordetella pertussis Not Detected (Not Detect); Chlamydophila pneumoniae Not Detected (Not Detect); Coronavirus 229E Not Detected (Not Detect); Coronavirus HKU1 Not Detected (Not Detect); Coronavirus NL 63 Not Detected (Not Detect); Coronavirus OC43 Not Detected (Not Detect); Human Metapneumovirus Not Detected (Not Detect); Human Rhinovirus/Enterovirus Not Detected (Not Detect); Influenza A Not Detected (Not Detect); Influenza B Not Detected (Not Detect); Mycoplasma pneumoniae Not Detected (Not Detect); Parainfluenza Virus 1 Not Detected (Not Detect); Parainfluenza Virus 2 Not Detected (Not Detect); Parainfluenza Virus 3 Not Detected (Not Detect); Parainfluenza Virus 4 Not Detected (Not Detect); Respiratory Syncytial Virus Not Detected (Not Detect); SARS- CoV-2 Not Detected (Not Detecte)
--- NOTE | 2024-01-20 09:13 | DI.CT.S_ITS ---
PROCEDURE: CT ANGIO CHEST PE PROTOCOL INDICATIONS: Dyspnea TECHNIQUE: After the administration of intravenous contrast, 2 mm thick sections acquired from the pulmonary apices to the posterior costophrenic angles. 3-dimensional maximum intensity projection (MIP) coronal and sagittal reformats were then acquired through the thorax. For radiation dose reduction, the following was used: automated exposure control, adjustment of mA and/or kV according to patient size. COMPARISON: None. FINDINGS: Image quality: Diagnostic. Pulmonary arteries: Pulmonary arteries are normal in size, and demonstrate no intraluminal filling defects to suggest central pulmonary embolism. Lower Neck: No enlarged lymph nodes. Thyroid: No thyroid nodules which require sonographic follow up, per consensus guidelines. Axillae: No enlarged lymph nodes. Chest Wall: Left chest wall generator with cardiac leads. Bones: Unremarkable. Lungs and Pleura: Multifocal consolidation, predominantly within the left lower lobe and right middle lobe. Superimposed bronchial thickening. Airways are clear otherwise. Heart: Heart size is enlarged, with a prosthetic aortic valve. No pericardial effusion. Thoracic Vessels: No aortic aneurysm. Mediastinum and Flor: Reactive mediastinal lymph nodes. Esophagus: No wall thickening. No hiatal hernia. Upper Abdomen: Reflux of contrast into the IVC, indicating elevated right heart pressures. IMPRESSION: No pulmonary embolus. Multifocal consolidation, either infection or possibly aspiration due to distribution. Correlate with risk factors for aspiration and consider speech pathology referral. Recommend follow-up in 1-2 months with chest x-ray to ensure resolution. Reflux of contrast into the IVC, indicating elevated heart pressures. Dictated by: Kofi Beckwith M.D. on 01/20/2024 at 9:30 Approved by: Kofi Beckwith M.D. on 01/20/2024 at 9:35
[2024-01-20 10:19] LABS: Creatine Kinase 150 U/L (55-170)
[2024-01-20 10:26] LABS: Procalcitonin 4.67 ng/mL (<0.5)
[2024-01-20 10:32] LABS: Troponin I 0.067 ng/mL (0.01-0.034)
[2024-01-20] MEDS: cefTRIAXone 2,000 MG in SODIUM CHLORIDE 0.9% 100 ML 200 MG IV (10:35)
[2024-01-20 10:37] LABS: Lactate (Lactic Acid) 1.8 mmol/L (0.7-2.1)
[2024-01-20] MEDS: DOXYCYCLINE 100 MG in SODIUM CHLORIDE 0.9% 100 ML IV (11:12)
[2024-01-20] MEDS: ACETAMINOPHEN 325 MG TABLET 975 MG PO (11:43)
--- NOTE | 2024-01-20 12:46 | PC.NURSE ---
Reassess; no change.
--- NOTE | 2024-01-20 14:19 | PM.HP.1 ---
History of Present Illness History of Present Illness Date Patient Seen: 01/20/24 Time Patient Seen: 14:19 Chief complaint: shallow breathing Narrative: 74 M with PMH of afib, CVA, PPM for complete heart block, and bovine aortic valve replacement, CHFpEF, mantle cell lymphoma who presents with 3 days of worsening shortness of breath. Denies fever, chills, chest pain. Does have a minimally / intermittently productive cough of brown sputum. No abdominal pain, nausea, vomiting, or diarrhea. He denies any weight changes, and his legs are not any more swollen than normal he thinks, and his left leg has always been more swollen than his right after his stroke. In the emergency room, the patient was hypoxic on room air and saturating at approximately 90% on 2 L. Laboratory evaluation was notable for leukocytosis with WBC 16.2, total bilirubin was elevated at 2.0 without elevations in AST, ALT, or alk-phos. Troponin was indeterminate at 0.067, and repeat was the same. ProBNP was elevated at 5450. Procalcitonin was also elevated at 4.67. Complete respiratory panel was negative. CT angiogram of his chest showed no pulmonary embolism but did show multifocal consolidations. [facility] Medical History Plantar fasciitis (10/02/10) Melanoma (~1979) Tinea pedis Onychomycosis Complete heart block Atrial fibrillation Osteopenia of femoral neck, bilateral (~12/2018) Mantle cell lymphoma (~10/2017) Squamous cell carcinoma (08/2019) CVA (cerebral vascular accident) (~11/2017) Pacemaker (~04/2018) Mild aortic stenosis by prior echocardiogram (08/13/11) Wears glasses Chronic back pain Mumps Measles Chicken pox Kidney stones (~1975) Skin cancer (~2004) TIA (transient ischemic attack) (~2009) Surgical History S/P TAVR (transcatheter aortic valve replacement) (~04/2018) Anesthesia History of tonsillectomy Status post cardiac pacemaker procedure (~05/14/18) S/P bronchoscopy with biopsy Family History Father Lung cancer Mother Parkinson's disease Sister Bladder cancer Social History household members: spouse Smoking Status: Never smoker alcohol intake: never substance use type: does not use Meds Home Medications and Allergies Home Medications Medication Instructions Recorded Confirmed Type apixaban 5 mg tablet 5 mg PO BID 08/07/19 01/20/24 History torsemide 20 mg tablet 20 mg PO DAILY PRN Shortness Of 09/13/21 01/20/24 History Breath cholecalciferol (vitamin D3) 125 125 mcg PO DAILY 07/21/22 01/20/24 History mcg (5,000 unit) capsule coenzyme Q10 300 mg capsule 300 mg PO DAILY 07/21/22 01/20/24 History famotidine-Ca carb-mag hydrox 10 1 tab PO DAILY PRN inde 07/21/22 01/20/24 History mg-800 mg-165 mg chewable tablet (Pepcid Complete) omega-3 fatty acids 1,000 mg 1,000 mg PO DAILY 07/21/22 01/20/24 History capsule fluticasone propionate 50 2 spray intranasal DAILY #16 grams 07/14/23 01/20/24 Rx mcg/actuation nasal spray,suspension (Flonase Allergy Relief) losartan 50 mg tablet 50 mg PO BID #180 tabs 08/12/23 01/20/24 Rx metoprolol succinate 50 mg 25 mg (1/2 x 50 mg) PO BID #90 tabs 09/30/23 01/20/24 Rx tablet,extended release 24 hr amlodipine 5 mg tablet 5 mg PO DAILY #90 tabs 12/14/23 01/20/24 Rx Disabled Parking Permit #1 ea 01/04/24 01/20/24 Rx Allergies Allergy/AdvReac Type Severity Reaction Status Date / Time No Known Drug Allergies Allergy Verified 01/20/24 08:05 Review of Systems Review of Systems Narrative: All other systems reviewed with the patient and are negative unless otherwise stated. Exam Vital Signs (past 8 hours): - 01/20/24 07:46 01/20/24 08:00 01/20/24 08:00 Temperature Pulse Rate 81 96 H Respiratory Rate 33 H Blood Pressure 116/60 Pulse Oximetry 95 91 Oxygen Delivery Method Oxygen Flow Rate 01/20/24 08:01 01/20/24 08:30 11/20/24 08:31 Temperature 98.3 F Pulse Rate 85 82 Respiratory Rate 40 H 30 H Blood Pressure 127/91 H 161/82 H Pulse Oximetry 95 96 Oxygen Delivery Method Room Air Nasal Cannula Oxygen Flow Rate 2 01/20/24 08:31 01/20/24 09:00 01/20/24 09:30 Temperature Pulse Rate 85 78 87 Respiratory Rate 30 H 27 H 34 H Blood Pressure Pulse Oximetry 96 96 96 Oxygen Delivery Method Nasal Cannula Nasal Cannula Nasal Cannula Oxygen Flow Rate 2 2 2 01/20/24 09:31 01/20/24 09:31 01/20/24 10:00 Temperature Pulse Rate 81 79 Respiratory Rate 34 H Blood Pressure 155/116 H Pulse Oximetry 95 93 Oxygen Delivery Method Nasal Cannula Oxygen Flow Rate 2 01/20/24 10:14 01/20/24 10:30 01/20/24 10:39 Temperature Pulse Rate 103 H 73 Respiratory Rate 26 H 31 H Blood Pressure 134/82 Pulse Oximetry 90 L 92 Oxygen Delivery Method Oxygen Flow Rate 01/20/24 10:39 01/20/24 11:00 01/20/24 11:01 Temperature Pulse Rate 80 77 78 Respiratory Rate 30 H 30 H 32 H Blood Pressure Pulse Oximetry 92 94 93 Oxygen Delivery Method Oxygen Flow Rate 01/20/24 11:01 01/20/24 11:30 01/20/24 11:31 Temperature Pulse Rate 82 81 Respiratory Rate 33 H 31 H Blood Pressure 173/87 H Pulse Oximetry 95 94 Oxygen Delivery Method Oxygen Flow Rate 01/20/24 11:31 01/20/24 11:48 01/20/24 11:48 Temperature Pulse Rate 80 Respiratory Rate 34 H Blood Pressure 177/89 H 158/67 H Pulse Oximetry 94 Oxygen Delivery Method Oxygen Flow Rate 01/20/24 12:00 01/20/24 12:01 01/20/24 12:01 Temperature Pulse Rate 82 81 Respiratory Rate 33 H 31 H Blood Pressure 210/95 H Pulse Oximetry 95 94 Oxygen Delivery Method Oxygen Flow Rate 01/20/24 12:30 01/20/24 12:33 01/20/24 12:50 Temperature 98.7 F 98.6 F Pulse Rate 78 80 Respiratory Rate 28 H 17 Blood Pressure 188/86 H 138/68 Pulse Oximetry 91 94 Oxygen Delivery Method Oxygen Flow Rate 2 Oxygen Delivery Method Nasal Cannula Oxygen Flow Rate 2 Narrative Exam Narrative: General:? Patient is well developed and well nourished, in no distress at this time but is ill appearing, on nasal cannula O2. HEENT:? Normocephalic, atraumatic, extraocular muscles intact, oral pharynx is clear and mucous membranes are moist. Neck: supple and symmetric, trachea is midline, no cervical adenopathy. Negative for JVD Chest:? Normal AP diameter and contour without kyphoscoliosis, no tachypnea, equal chest rise bilaterally. Lungs:? diminished breath sounds in bilateral lung bases. Cardio:?RRR no m/r/g. Abdomen: S NT ND. No CVA tenderness. Musculoskeletal:? Muscle strength and tone are equal within normal limits, no deformity. Extremities: No joint effusions. No cyanosis or clubbing. 1+ left lower extremity edema Skin:? Pale,? Warm to touch,dry and intact without rashes, ulcerations or petechiae.? Neuro:? Alert and orientated x3,? sensation to touch intact in all extremities, no gross deficits noted of cranial nerves. Psych:? Patient has a well-kept appearance, appropriate affect, mental status attitude thought context and judgment are appropriate for age. Objective ECG Impression: Atrial fibrillation with occasional ventricular-paced complexes Left axis deviation Incomplete right bundle branch block No evidence of acute ischemia. Previous EKG shows paced rhythm. Labs 01/20/24 07:58 01/20/24 07:58 Labs: Laboratory Results - last 24 hr 01/20/24 01/20/24 01/20/24 07:58 08:07 09:59 WBC 16.2 H RBC 5.42 Hgb 16.4 Hct 49.1 MCV 90.6 MCH 30.3 MCHC 33.5 RDW 15.4 H Plt Count 206 Neut % (Auto) 94.7 H Lymph % (Auto) 1.5 L Burke % (Auto) 3.4 Eos % (Auto) 0.3 L Baso % (Auto) 0.1 Neut # (Auto) [address] H Lymph # (Auto) 300 L Burke # (Auto) 500 Eos # (Auto) 0 Baso # (Auto) 0 PT 20.2 H INR 1.8 H APTT 39 H Sodium 135 L Potassium 4.2 Chloride 104 Carbon Dioxide 25 BUN 18 Creatinine 1.06 Estimated GFR > 60 BUN/Creatinine Ratio 17.0 Glucose 183 H Lactate Calcium 9.2 Total Bilirubin 2.0 H AST 39 ALT 31 Alkaline Phosphatase 74 Total Creatine Kinase 184 H 150 Troponin I 0.067 H 0.067 H NT-Pro-B Natriuret Pep 5450 H Total Protein 6.9 Albumin 3.9 Globulin 3.0 Albumin/Globulin Ratio 1.3 Lipase 18 L Procalcitonin 4.67 H Chlamy pneumoniae PCR Not detected Adenovirus (PCR) Not detected B. pertussis DNA (PCR) Not detected B.parapertussis DNA PCR Not detected Coronavirus OC43 (PCR) Not detected Coronavirus HKU1 (PCR) Not detected Coronavirus 229E (PCR) Not detected SARS-CoV-2 (PCR) Not detected Coronavirus NL63 (PCR) Not detected Human Metapneumovir PCR Not detected Influenza Type A (PCR) Not detected Influenza Type B (PCR) Not detected M. pneumoniae (PCR) Not detected Parainfluenza 1 (PCR) Not detected Parainfluenza 2 (PCR) Not detected Parainfluenza 3 (PCR) Not detected Parainfluenza 4 (PCR) Not detected RSV (PCR) Not detected Entero/Rhino (PCR) Not detected 01/20/24 10:20 WBC RBC Hgb Hct MCV MCH MCHC RDW Plt Count Neut % (Auto) Lymph % (Auto) Burke % (Auto) Eos % (Auto) Baso % (Auto) Neut # (Auto) Lymph # (Auto) Burke # (Auto) Eos # (Auto) Baso # (Auto) PT INR APTT Sodium Potassium Chloride Carbon Dioxide BUN Creatinine Estimated GFR BUN/Creatinine Ratio Glucose Lactate 1.8 Calcium Total Bilirubin AST ALT Alkaline Phosphatase Total Creatine Kinase Troponin I NT-Pro-B Natriuret Pep Total Protein Albumin Globulin Albumin/Globulin Ratio Lipase Procalcitonin Chlamy pneumoniae PCR Adenovirus (PCR) B. pertussis DNA (PCR) B.parapertussis DNA PCR Coronavirus OC43 (PCR) Coronavirus HKU1 (PCR) Coronavirus 229E (PCR) SARS-CoV-2 (PCR) Coronavirus NL63 (PCR) Human Metapneumovir PCR Influenza Type A (PCR) Influenza Type B (PCR) M. pneumoniae (PCR) Parainfluenza 1 (PCR) Parainfluenza 2 (PCR) Parainfluenza 3 (PCR) Parainfluenza 4 (PCR) RSV (PCR) Entero/Rhino (PCR) Assessment & Plan Assessment & Plan narrative: 74 M with PMH of afib, CVA, PPM for complete heart block, and bovine aortic valve replacement, CHFpEF, mantle cell lymphoma who presents with 3 days of worsening shortness of breath. Admitted with sepsis secondary to PNA. 1. Sepsis secondary to bacterial pneumonia with acute respiratory failure with hypoxia and hyperbilirubinemia. - continue ceftriaxone and azithomycin for presumed bacterial pneumonia given elevated WBC, procalcitonin and presenting history. - follow up blood cultures, sputum culture ordered. No current urinary symptoms suggestive of infection - SOFA score is 2 2. Possible acute on chronic diastolic heart failure, history of aortic valve replacement - given furosemide in the ER, will watch with presenting sepsis for signs of hypotension before further diuresis. - TTE ordered. Last TTE this year was EF 60% with concentric LVH. No issues with valve. 3. history of paroxysmal afib - continue home metoprolol 25 mg BID - continue home apixaban 4. HTN - continue home amlodipine for now. Consider holding depending on BP over the next few hours. 5. Hx of Mantle Cell lymphoma. 6. Hx of CVA - continue home apixaban Code: Full, surrogate is patient's spouse DVT: Lovenox daily I have utilized all available immediate resources to obtain, update, or review the patient's current medications. Dispo: patient admitted under inpatient status. Likely discharge home, consider PT/OT evaluations depending on improvement with above treatments. Additional history obtained via discussions with the ER provider. These discussions contributed to the creation of the above assessment and plan. I have reviewed patient's presenting documentation, labs, and imaging personally. Time-Based Coding :: [TOTAL MINUTES] spent with patient and on the chart (including review of chart, obtaining history, exam, reviewing outside data, placing orders, documenting exam and treatment plan, and counseling patient) on [DATE]. Quality VTE Deep Vein Thrombosis/Pulmonary Embolism Present on Admission: No
--- NOTE | 2024-01-20 14:40 | PC.NURSE ---
Pt arrived from ED on stretcher at 1245, able to transfer stand pivot to the bed. A&Ox4, VSS on 2L NC. No c/o pain but c/o SOB especially after exertion. Tachypnea. CMS+, bowel sounds present, last BM 01/18. Pt oriented to room and call light. Bed in low position, call light within reach, SCDs on.
--- NOTE | 2024-01-20 16:12 | DI.ECHO.S_ITS ---
[facility]---------+ [facility] : : [address] : : [place] : : [id number] : : Phone: [phone] Echocardiogram Report + + :Name: PIERCE JERRY Study Date: 01/21/2024 Height: 73 in : :[facility] ReadingLocation: Weight: 322 lb: : Gender: Male BSA: 2.6 m2 : :: 1950 Age: 74 yrs : :Reason For Study: HYPOXIA, SHORTNESS OF BREATH : :Ordering Physician: DIAMANTE, : :STEVE TURNER Performed By: Shazia Monae : :Referring: STEVE BOBBY : + + Interpretation Summary The patient was in atrial fibrillation with heart rates between 81-100 bpm during the exam. The study quality was technically difficult. There is moderate concentric left ventricular hypertrophy. The ejection fraction is estimated to be 55-60%. The right ventricle is normal in size and function. The right ventricular systolic pressure is estimated to be at least 48 mmHg based on an estimated right atrial pressure of 3 mm Hg. The left atrium is severely dilated. There is mild to moderate aortic stenosis. There is mild aortic regurgitation. Procedure: A two-dimensional transthoracic echocardiogram with color flow and Doppler was performed. The study quality was technically difficult. Comparison is made with the echocardiogram of 09/04/2010. The patient was in atrial fibrillation with heart rates between 81-100 bpm during the exam. Left Ventricle: The left ventricle is normal in size. There is moderate concentric left ventricular hypertrophy. The ejection fraction is estimated to be 55-60%. Septal motion is consistent with conduction abnormality. Right Ventricle: The right ventricle is normal in size and function. Atria: The left atrium is severely dilated. The right atrium is mildly dilated. There is no Doppler evidence for an interatrial shunt. Mitral Valve: There is mild mitral annular calcification. The mitral valve leaflets appear moderately thickened, but open well. The mitral valve chordae are thickened and/or calcified. There is no mitral regurgitation noted. Aortic Valve: There is a bioprosthetic aortic valve. The peak aortic velocity is 2.7 m/sec. The aortic valve mean gradient is 17 mmHg. The calculated aortic valve area is 1.2 cm2. There is mild to moderate aortic stenosis. There is mild aortic regurgitation. Tricuspid Valve: The tricuspid valve is normal in structure and function. There is mild tricuspid regurgitation. The right ventricular systolic pressure is estimated to be at least 48 mmHg based on an estimated right atrial pressure of 3 mm Hg. Pulmonic Valve: The pulmonic valve is not well seen, but is grossly normal. There is trace pulmonic regurgitation. Great Vessels: The dimensions of the ascending aorta are normal. The IVC is dilated (diameter is greater than 2.1 cm) and it collapses less than 50% with a sniff. This suggests a high right atrial pressure of 15 mm Hg. Pericardium/ Pleura There is no pericardial effusion. There is no pleural effusion. MMode/2D Measurements & Calculations LVIDd: 5.2 cm LVOT diam: 2.0 cm LVIDs: 3.6 cm asc Aorta Diam: 3.7 cm FS: 29.9 % EPSS: 0.96 cm IVSd: 1.5 cm LVPWd: 1.2 cm LV guzmán. diameter/BSA (cm/m^2): 2.0 LV sys. diameter/BSA (cm/m^2): 1.4 LA A2 area: 34.4 cm2 RA long axis: 7.1 cm LA A4 area: 29.1 cm2 RA area: 27.7 cm2 LA length (vol): 6.7 cm RA vol: 91.5 ml LA vol: 127.8 ml RA : 34.7 ml/m2 LA vol index: 48.5 ml/m2 IVC diam: 2.3 cm RVD1 (basal): 4.0 cm RVD2 (mid): 2.9 cm TAPSE: 1.8 cm Doppler Measurements & Calculations Ao V2 max: 272.5 cm/sec LVOT Max Ambrocio: 102.3 cm/sec Ao V2 mean: 189.7 cm/sec LV V1 max P.2 mmHg Ao max P.1 mmHg LV V1 VTI: 18.6 cm Ao mean P.3 mmHg GISELA(I,D): 1.2 cm2 Ao V2 VTI: 47.5 cm GISELA(V,D): 1.2 cm2 sev ratio: 0.39 GISELA indexed to BSA (cm^2/m^2): 0.47 MV E max ambrocio: 122.9 cm/sec TR max ambrocio: 296.2 cm/sec MV A max ambrocio: 1.9 cm/sec TR max P.1 mmHg MV E/A: 63.3 PA V2 max: 120.4 cm/sec Med Peak E' Ambrocio: 8.7 cm/sec PA V2 mean: 89.4 cm/sec E/E' med: 14.1 PA mean P.5 mmHg Lat Peak E' Ambrocio: 8.2 cm/sec PA pr(Accel): 24.2 mmHg E/E' lat: 15.0 E/e' average: 14.5 MV dec time: 0.23 sec SV(LVOT): 58.4 ml Reading Physician:RADHA
[2024-01-20] MEDS: APIXABAN 5 MG TABLET PO (20:16)
[2024-01-20] MEDS: METOPROLOL ER 50 MG TABLET 25 MG PO (22:39)
[2024-01-21] VITALS (12 sets, daily range): BP systolic 107–189; BP diastolic 55–88; PULSE 57–99; RESP 19–32; TEMP 36.7–37.7; O2SAT 90–95
[2024-01-21 02:40] LABS: Appearance Urine UA CLEAR; Bilirubin Urine UA NEGATIVE (NEGATIVE); Color Urine UA YELLOW; Glucose Urine UA NEGATIVE (Negative); Ketones Urine UA NEGATIVE (NEGATIVE); Leukocyte Esterase Urine UA NEGATIVE (NEGATIVE); Nitrite Urine UA NEGATIVE (Negative); Occult Blood Urine UA 1+ (Negative); Protein Urine UA 2+ (Negative); pH Urine UA 5.5 (4.5-8.0)
[2024-01-21 03:06] LABS: Bacteria Urine None Seen; Culture Indicated Urine Cult Not Indicated; RBC Urine 0-1/HPF (0-5/HPF); Squamous Epithelial Cell Urine None Seen (0-5/HPF); Urine Volume 10mL (spun); WBC Urine None Seen (0-5/HPF)
[2024-01-21] MEDS: ALBUTEROL/IPRATROPIUM 3 ML AMPUL INH ×2 (05:18→20:52)
[2024-01-21 05:52] LABS: Add Manual Diff / Slide Review NO; Basophils Absolute Auto 100 /uL (0-100); Basophils Percent Auto 0.5 % (0-2); Eosinophils Absolute Auto 300 /uL (0-450); Eosinophils Percent Auto 2.4 % (2-4); Hematocrit 45.3 % (41-53); Hemoglobin 15.2 g/dL (13.5-17.5); Lymphocytes Absolute Auto 400 /uL (1100-4500); Lymphocytes Percent Auto 3.2 % (25-40); Mean Corpuscular HGB Conc 33.6 % (30-36); Mean Corpuscular Hemoglobin 30.3 PG (26-34); Mean Corpuscular Volume 90.1 fL (80-100); Monocytes Absolute Auto 900 /uL (0-900); Monocytes Percent Auto 7.2 % (3-14); Neutrophils Absolute Auto 11000 /uL (1500-7000); Neutrophils Percent Auto 86.7 % (50-75); Platelet Count 207 X10^3/uL (150-400); Red Blood Cell Count 5.03 X10^6/uL (4.5-5.9); Red Cell Distribution Width 15.5 % (11.6-14.8); White Blood Cell Count 12.7 X10^3/uL (4.5-11.0)
[2024-01-21] MEDS: FUROSEMIDE 40 MG/4 ML VIAL IV (06:01)
[2024-01-21 06:03] LABS: Blood Urea Nitrogen 21 mg/dL (9-20); Calcium 8.8 mg/dL (8.4-10.2); Carbon Dioxide 27 mmol/L (22-32); Chloride 104 mmol/L (98-107); Estimated Glomerular Filt Rate > 60 mL/min (>60); Glucose 137 mg/dL (80-110); HEMOLYSIS 16 (0-50); Magnesium 2.1 mg/dL (1.6-2.3); Sodium 136 mmol/L (137-145)
[2024-01-21 06:21] LABS: Procalcitonin 2.81 ng/mL (<0.5)
--- NOTE | 2024-01-21 07:21 | PM.PN.1 ---
Subjective Subjective Interval history: Admitted with pneumonia. S: He still feels lethargic but has less of a cough. He denies any dyspnea. He has chronic left greater than right leg edema from his lymphoma and lymphedema. He also has a history of atrial fibrillation and aortic stenosis. Echo was obtained yesterday and revealed: The study quality was technically difficult. There is moderate concentric left ventricular hypertrophy. The ejection fraction is estimated to be 55-60%. The right ventricle is normal in size and function. The right ventricular systolic pressure is estimated to be at least 48 mmHg based on an estimated right atrial pressure of 3 mm Hg. The left atrium is severely dilated. There is mild to moderate aortic stenosis. There is mild aortic regurgitation. Exam Vital Signs (past 8 hours): - 01/21/24 00:00 01/21/24 04:00 01/21/24 05:21 Temperature 99.2 F 99.6 F Pulse Rate 87 73 60 Respiratory Rate 19 32 H 22 Blood Pressure 123/74 121/82 Pulse Oximetry 91 95 95 Oxygen Delivery Method Nasal Cannula Oxygen Flow Rate 2 Fraction of Inspired Oxygen 28 Fraction of Inspired Oxygen 28 SaO2/FiO2 Ratio 339 Oxygen Delivery Method Nasal Cannula Oxygen Flow Rate 2 Narrative Exam Narrative: NAD, alert and oriented. Fluent speech. Lungs are clear, normal rate and effort. Heart is regular, systolic murmur (RLSB), and no gallop or rub. Abdomen is soft, non distended. Extremities are 2+ left leg edema, 1+ right leg edema. Objective Labs 01/21/24 05:30 01/21/24 05:30 Labs: Laboratory Results - last 24 hr 01/20/24 01/20/24 01/20/24 07:58 08:07 09:59 WBC 16.2 H RBC 5.42 Hgb 16.4 Hct 49.1 MCV 90.6 MCH 30.3 MCHC 33.5 RDW 15.4 H Plt Count 206 Neut % (Auto) 94.7 H Lymph % (Auto) 1.5 L [place] % (Auto) 3.4 Eos % (Auto) 0.3 L Baso % (Auto) 0.1 Neut # (Auto) 09521 H Lymph # (Auto) 300 L [place] # (Auto) 500 Eos # (Auto) 0 Baso # (Auto) 0 PT 20.2 H INR 1.8 H APTT 39 H Sodium 135 L Potassium 4.2 Chloride 104 Carbon Dioxide 25 BUN 18 Creatinine 1.06 Estimated GFR > 60 BUN/Creatinine Ratio 17.0 Glucose 183 H Lactate Calcium 9.2 Magnesium Total Bilirubin 2.0 H AST 39 ALT 31 Alkaline Phosphatase 74 Total Creatine Kinase 184 H 150 Troponin I 0.067 H 0.067 H NT-Pro-B Natriuret Pep 5450 H Total Protein 6.9 Albumin 3.9 Globulin 3.0 Albumin/Globulin Ratio 1.3 Lipase 18 L Procalcitonin 4.67 H Urine Color Urine Appearance Urine pH Ur Specific [place] Urine Protein Urine Glucose (UA) Urine Ketones Urine Occult Blood Urine Nitrate Urine Bilirubin Urine Urobilinogen Ur Leukocyte Esterase Urine RBC Urine WBC Ur Squamous Epith Cells Urine Bacteria Ur Culture Indicated? Vol Urine Centrifuged Chlamy pneumoniae PCR Not detected Adenovirus (PCR) Not detected B. pertussis DNA (PCR) Not detected B.parapertussis DNA PCR Not detected Coronavirus OC43 (PCR) Not detected Coronavirus HKU1 (PCR) Not detected Coronavirus 229E (PCR) Not detected SARS-CoV-2 (PCR) Not detected Coronavirus NL63 (PCR) Not detected Human Metapneumovir PCR Not detected Influenza Type A (PCR) Not detected Influenza Type B (PCR) Not detected M. pneumoniae (PCR) Not detected Parainfluenza 1 (PCR) Not detected Parainfluenza 2 (PCR) Not detected Parainfluenza 3 (PCR) Not detected Parainfluenza 4 (PCR) Not detected RSV (PCR) Not detected Entero/Rhino (PCR) Not detected 01/20/24 01/21/24 01/21/24 10:20 02:20 05:30 WBC 12.7 H RBC 5.03 Hgb 15.2 Hct 45.3 MCV 90.1 MCH 30.3 MCHC 33.6 RDW 15.5 H Plt Count 207 Neut % (Auto) 86.7 H Lymph % (Auto) 3.2 L [place] % (Auto) 7.2 Eos % (Auto) 2.4 Baso % (Auto) 0.5 Neut # (Auto) 37364 H Lymph # (Auto) 400 L [place] # (Auto) 900 Eos # (Auto) 300 Baso # (Auto) 100 PT INR APTT Sodium 136 L Potassium 4.0 Chloride 104 Carbon Dioxide 27 BUN 21 H Creatinine 1.05 Estimated GFR > 60 BUN/Creatinine Ratio 20.0 Glucose 137 H Lactate 1.8 Calcium 8.8 Magnesium 2.1 Total Bilirubin AST ALT Alkaline Phosphatase Total Creatine Kinase Troponin I NT-Pro-B Natriuret Pep Total Protein Albumin Globulin Albumin/Globulin Ratio Lipase Procalcitonin 2.81 H Urine Color Yellow Urine Appearance Clear Urine pH 5.5 Ur Specific [place] 1.020 Urine Protein 2+ H Urine Glucose (UA) Negative Urine Ketones Negative Urine Occult Blood 1+ H Urine Nitrate Negative Urine Bilirubin Negative Urine Urobilinogen 1.0 Ur Leukocyte Esterase Negative Urine RBC 0-1/hpf Urine WBC None seen Ur Squamous Epith Cells None seen Urine Bacteria None seen Ur Culture Indicated? Cult not indicated Vol Urine Centrifuged 10ml (spun) Chlamy pneumoniae PCR Adenovirus (PCR) B. pertussis DNA (PCR) B.parapertussis DNA PCR Coronavirus OC43 (PCR) Coronavirus HKU1 (PCR) Coronavirus 229E (PCR) SARS-CoV-2 (PCR) Coronavirus NL63 (PCR) Human Metapneumovir PCR Influenza Type A (PCR) Influenza Type B (PCR) M. pneumoniae (PCR) Parainfluenza 1 (PCR) Parainfluenza 2 (PCR) Parainfluenza 3 (PCR) Parainfluenza 4 (PCR) RSV (PCR) Entero/Rhino (PCR) [facility] Medical History Plantar fasciitis (10/02/10) Melanoma (~1979) Tinea pedis Onychomycosis Complete heart block Atrial fibrillation Osteopenia of femoral neck, bilateral (~12/2018) Mantle cell lymphoma (~10/2017) Squamous cell carcinoma (08/2019) CVA (cerebral vascular accident) (~11/2017) Pacemaker (~04/2018) Mild aortic stenosis by prior echocardiogram (08/13/11) Wears glasses Chronic back pain Mumps Measles Chicken pox Kidney stones (~1975) Skin cancer (~2004) TIA (transient ischemic attack) (~2009) Surgical History S/P TAVR (transcatheter aortic valve replacement) (~04/2018) Anesthesia History of tonsillectomy Status post cardiac pacemaker procedure (~05/14/18) S/P bronchoscopy with biopsy Family History Father Lung cancer Mother Parkinson's disease Sister Bladder cancer Social History household members: spouse Smoking Status: Never smoker alcohol intake: never substance use type: does not use Assessment & Plan Assessment & Plan narrative: 1. Sepsis secondary to bacterial pneumonia with acute respiratory failure with hypoxia and hyperbilirubinemia. Present on admission and improving. - continue ceftriaxone and azithomycin for presumed bacterial pneumonia given elevated WBC, procalcitonin and presenting history. - follow up blood cultures, sputum culture ordered. No current urinary symptoms suggestive of infection - SOFA score is 2 2. Possible acute on chronic diastolic heart failure, history of aortic valve replacement. Present on admission and improved. - given furosemide in the ER, will watch with presenting sepsis for signs of hypotension before further diuresis. - TTE ordered. Last TTE this year was EF 60% with concentric LVH. No issues with valve. 3. Paroxysmal afib, present on admission and active. - continue home metoprolol 25 mg BID - continue home apixaban 4. HTN, present on admission and active. - continue home amlodipine for now. Consider holding depending on BP over the next few hours. 5. Hx of Mantle Cell lymphoma. Said to be in remission. 6. Hx of CVA, stable. - continue home apixaban DIAGNOSTICS: CTA of the chest personally reviewed, there is a left lower lobe infiltrate. Labs personally reviewed. PLAN: -continue Abx -wean O2 -OOB Code: Full, surrogate is patient's spouse DVT: Lovenox daily KRISTINA: 01/22, home. Time-Based Coding :: [TOTAL MINUTES] spent with patient and on the chart (including review of chart, obtaining history, exam, reviewing outside data, placing orders, documenting exam and treatment plan, and counseling patient) on [DATE]. Quality VTE Deep Vein Thrombosis/Pulmonary Embolism Present on Admission: No
[2024-01-21] MEDS: APIXABAN 5 MG TABLET PO ×2 (08:50→20:45)
[2024-01-21] MEDS: METOPROLOL ER 50 MG TABLET 25 MG PO ×2 (08:50→20:45)
[2024-01-21] MEDS: CHOLECALCIFEROL (VITAMIN D3) 5,000 UNIT TABLET 5000 UNIT PO (08:51)
[2024-01-21] MEDS: cefTRIAXone 1,000 MG in SODIUM CHLORIDE 0.9% 100 ML 200 MG IV (11:02)
[2024-01-21] MEDS: AZITHROMYCIN 500 MG in DEXTROSE 5% IN WATER 250 ML 250 MG IV (12:11)
[2024-01-21 13:27] LABS: Troponin I 0.054 ng/mL (0.01-0.034)
--- NOTE | 2024-01-21 15:17 | CM.DANOTE ---
Initial DCP Assessment Visit Note Reviewed EMR and team rounds for status updates. Met with pt/spouse at bedside to introduce self and role, pt was found to be alert/oriented, but definitely struggling with shortness of breath, was sitting completely upright in the bed, however was able to acknowledge understanding EMPLOYEE TRAINING SPECIALIST role. Pt lives independently at baseline with his spouse in their own home in [place]. His spouse will transport him home once he's medically stable for discharge, likely 2-3 more days. Payor: [facility] Adv PCP: Dr. Danielle Kennedy Pt is a 74 year-old M with a hx of Afib, lymphoma, and CHF. He presented to the ED yesterday with c/o worsening SOB over the last 24-hours. CT angio chest showed pneumonia, presumed to be community acquired. He was started on IV ABO's and O2. DCP will continue to monitor for final d/c needs and recommendations. PT/OT eval and recs also pending. Discharge Planning/Care Management CM Discharge Assessment Start: 01/21/24 15:16 Freq: Status: Active Protocol: Document 01/21/24 15:16 DPL (Rec: 01/21/24 15:17 DPL [id number]) Discharge Planning Assessment Assigned Booking Manager GAURAV Puentes Advance Directives? No History Provided By Patient,Significant Other, Medical Record Has Patient been admitted in last 30 No days? Prior Living Arrangements House Household Members spouse Type of transporation used prior to Drives own vehicle admit Independent with ADL's Yes Is patient alert and oriented? Yes Caregiver for Another No Comment N/A Comment No identified d/c needs at this time. Pending final PT/OT recs and needs. Barriers to Discharge No Discharge Plan Home Whiteboard Updated in Patient Room with Yes name and ext. # of Booking Manager Review Status In Process Please Provide Date Initial DC 01/21/24 Assessment Was Performed
--- NOTE | 2024-01-21 16:09 | PT-IP ANOTE ---
PT reviews chart and checks on pt. Pt up in chair and appears mildly dyspneic. He declines PT, stating he is tired. Con't eval efforts next date.
[2024-01-21] MEDS: LOSARTAN 50 MG TABLET PO (20:45)
[2024-01-21] MEDS: ACETAMINOPHEN 325 MG TABLET 650 MG PO (20:45)
[2024-01-22] VITALS (10 sets, daily range): BP systolic 109–134; BP diastolic 60–95; PULSE 74–99; RESP 18–28; TEMP 36.5–37.3; O2SAT 91–94
--- NOTE | 2024-01-22 02:33 | PC.NURSE ---
Patient having frequent and worsening cardiac arrhythmias. In ER records and admission note both mention that the patient has a Pacemaker but no pacer spikes are seen on Bedside Telemetry. Per 12 lead EKG also shows no spikes. Confirmed with patient who informed us that the Pacemaker Is a Medtronic Venessa XL, interrogation performed at bedside, pending results will be placed in chart for physician to examine.
[2024-01-22 06:24] LABS: Add Manual Diff / Slide Review NO; Basophils Absolute Auto 0 /uL (0-100); Basophils Percent Auto 0.1 % (0-2); Lymphocytes Absolute Auto 400 /uL (1100-4500); Mean Corpuscular HGB Conc 33.7 % (30-36); Monocytes Absolute Auto 1100 /uL (0-900)
[2024-01-22 06:35] LABS: BUN Creatinine Ratio 22.2 (6-22); Blood Urea Nitrogen 22 mg/dL (9-20); Calcium 8.5 mg/dL (8.4-10.2); Carbon Dioxide 28 mmol/L (22-32); Chloride 103 mmol/L (98-107); Estimated Glomerular Filt Rate > 60 mL/min (>60); Glucose 130 mg/dL (80-110); HEMOLYSIS < 15 (0-50); Magnesium 2.1 mg/dL (1.6-2.3); Potassium 3.9 mmol/L (3.4-5.1); Sodium 134 mmol/L (137-145)
[2024-01-22 06:37] LABS: Eosinophils Absolute Auto 300 /uL (0-450); Eosinophils Percent Auto 2.8 % (2-4); Hematocrit 46.1 % (41-53); Hemoglobin 15.5 g/dL (13.5-17.5); Lymphocytes Percent Auto 3.7 % (25-40); Mean Corpuscular Hemoglobin 30.2 PG (26-34); Mean Corpuscular Volume 89.8 fL (80-100); Monocytes Percent Auto 9.6 % (3-14); Neutrophils Absolute Auto 9500 /uL (1500-7000); Neutrophils Percent Auto 83.8 % (50-75); Platelet Count 203 X10^3/uL (150-400); Red Blood Cell Count 5.14 X10^6/uL (4.5-5.9); White Blood Cell Count 11.4 X10^3/uL (4.5-11.0)
--- NOTE | 2024-01-22 07:41 | PM.PN.1 ---
Subjective Subjective Interval history: Summary: Admitted with pneumonia. He has chronic left greater than right leg edema from his lymphoma and lymphedema. He also has a history of atrial fibrillation and aortic stenosis. History of TAVR and pacemaker in [place]. S: He is slowly improving. He is still dyspneic with exertion and easy to fatigue. He feels hot is not febrile today and is saturating at 93-94% on room air at rest. Exam Vital Signs (past 8 hours): - 01/22/24 00:00 01/22/24 04:00 Temperature 98.2 F 97.7 F Pulse Rate 89 83 Respiratory Rate 28 H 26 H Blood Pressure 126/95 H 131/75 Pulse Oximetry 92 94 Oxygen Flow Rate 3 3 Fraction of Inspired Oxygen 28 SaO2/FiO2 Ratio 335 Oxygen Delivery Method Room Air Oxygen Flow Rate 3 Narrative Exam Narrative: NAD, alert and oriented. Fluent speech. Lungs are clear, normal rate and effort. Heart is regular, no murmur gallop or rub. Abdomen is soft, non distended. Extremities: 1+ edema, L > R. Objective Imaging Echo: Radiologist's impression: The study quality was technically difficult. There is moderate concentric left ventricular hypertrophy. The ejection fraction is estimated to be 55-60%. The right ventricle is normal in size and function. The right ventricular systolic pressure is estimated to be at least 48 mmHg based on an estimated right atrial pressure of 3 mm Hg. The left atrium is severely dilated. There is mild to moderate aortic stenosis. There is mild aortic regurgitation. CT scan - chest: Radiologist's impression: No pulmonary embolus. Multifocal consolidation, either infection or possibly aspiration due to distribution. Correlate with risk factors for aspiration and consider speech pathology referral. Recommend follow-up in 1-2 months with chest x-ray to ensure resolution. Reflux of contrast into the IVC, indicating elevated heart pressures. Venous US: Radiologist's impression: No findings of deep venous thrombosis in either lower extremity. Complex right Maki's cyst. Venous stasis as above without superficial thrombophlebitis. Labs 01/22/24 06:10 01/22/24 06:10 Labs: Laboratory Results - last 24 hr 01/21/24 01/22/24 12:53 06:10 WBC 11.4 H RBC 5.14 Hgb 15.5 Hct 46.1 MCV 89.8 MCH 30.2 MCHC 33.7 RDW 15.0 H Plt Count 203 Neut % (Auto) 83.8 H Lymph % (Auto) 3.7 L [place] % (Auto) 9.6 Eos % (Auto) 2.8 Baso % (Auto) 0.1 Neut # (Auto) 9500 H Lymph # (Auto) 400 L [place] # (Auto) 1100 H Eos # (Auto) 300 Baso # (Auto) 0 Sodium 134 L Potassium 3.9 Chloride 103 Carbon Dioxide 28 BUN 22 H Creatinine 0.99 Estimated GFR > 60 BUN/Creatinine Ratio 22.2 H Glucose 130 H Calcium 8.5 Magnesium 2.1 Troponin I 0.054 H [facility] Medical History Plantar fasciitis (10/02/10) Melanoma (~1979) Tinea pedis Onychomycosis Complete heart block Atrial fibrillation Osteopenia of femoral neck, bilateral (~12/2018) Mantle cell lymphoma (~10/2017) Squamous cell carcinoma (08/2019) CVA (cerebral vascular accident) (~11/2017) Pacemaker (~04/2018) Mild aortic stenosis by prior echocardiogram (08/13/11) Wears glasses Chronic back pain Mumps Measles Chicken pox Kidney stones (~1975) Skin cancer (~2004) TIA (transient ischemic attack) (~2009) Surgical History S/P TAVR (transcatheter aortic valve replacement) (~04/2018) Anesthesia History of tonsillectomy Status post cardiac pacemaker procedure (~05/14/18) S/P bronchoscopy with biopsy Family History Father Lung cancer Mother Parkinson's disease Sister Bladder cancer Social History household members: spouse Smoking Status: Never smoker alcohol intake: never substance use type: does not use Assessment & Plan Assessment & Plan narrative: 1. Sepsis secondary to bacterial pneumonia with acute respiratory failure with hypoxia and hyperbilirubinemia. Present on admission and improving. - continue ceftriaxone and azithomycin for presumed bacterial pneumonia given elevated WBC, procalcitonin and presenting history. - follow up blood cultures, sputum culture ordered. No current urinary symptoms suggestive of infection - SOFA score is 2 2. Pneumonia, presumed community-acquired. Present on admission and improving. 3. Acute respiratory failure with hypoxia, present on admission and improved. 4. Possible acute on chronic diastolic heart failure, history of aortic valve replacement. Present on admission and improved. - given furosemide in the ER, will watch with presenting sepsis for signs of hypotension before further diuresis. - TTE ordered. Stable. 5. Paroxysmal afib, present on admission and active. - continue home metoprolol 25 mg BID - continue home apixaban 6. HTN, present on admission and active. - continue home amlodipine for now. Consider holding depending on BP over the next few hours. 7. Hx of Mantle Cell lymphoma. Said to be in remission. 8. Hx of CVA, stable. - continue home apixaban 9. Morbid obesity with BMI of 42, present on admission and active. DIAGNOSTICS: CTA of the chest personally reviewed, there is a left lower lobe infiltrate. Labs personally reviewed. PLAN: -continue antibiotics including ceftriaxone and azithromycin. -increase activity, he did marginally well with physical therapy today and may need [facility] facility if he fails to improve dramatically over the next 1-2 days. -OOB -continue chronic medications, patient's heart failure appears to be compensated. Code: Full, surrogate is patient's spouse DVT: Lovenox daily KRISTINA: 01/22 or , home vs SNF. Time-Based Coding :: [TOTAL MINUTES] spent with patient and on the chart (including review of chart, obtaining history, exam, reviewing outside data, placing orders, documenting exam and treatment plan, and counseling patient) on [DATE]. Quality VTE Deep Vein Thrombosis/Pulmonary Embolism Present on Admission: No
[2024-01-22] MEDS: METOPROLOL ER 50 MG TABLET 25 MG PO ×2 (08:36→20:27)
[2024-01-22] MEDS: APIXABAN 5 MG TABLET PO ×2 (08:36→20:27)
[2024-01-22] MEDS: AMLODIPINE 5 MG TABLET PO (08:39)
[2024-01-22] MEDS: LOSARTAN 50 MG TABLET PO ×2 (08:39→20:28)
[2024-01-22] MEDS: ACETAMINOPHEN 325 MG TABLET 650 MG PO (08:40)
--- NOTE | 2024-01-22 09:25 | PT.IIE ---
Current Diagnoses Sepsis, unspecified organism (01/20/24) Surgical History (Last Reviewed 01/21/24 @ 07:23 by Deshawn Ariza MD) Anesthesia History of tonsillectomy S/P bronchoscopy with biopsy S/P TAVR (transcatheter aortic valve replacement) (~04/2018) Status post cardiac pacemaker procedure (~05/14/18) Medical History (Last Reviewed 01/21/24 @ 07:23 by Deshawn Ariza MD) Atrial fibrillation Chicken pox Chronic back pain Complete heart block CVA (cerebral vascular accident) (~11/2017) Kidney stones (~1975) Mantle cell lymphoma (~10/2017) Measles Melanoma (~1979) Mild aortic stenosis by prior echocardiogram (08/13/11) Mumps Onychomycosis Osteopenia of femoral neck, bilateral (~12/2018) Pacemaker (~04/2018) Plantar fasciitis (10/02/10) Skin cancer (~2004) Squamous cell carcinoma (08/2019) TIA (transient ischemic attack) (~2009) Tinea pedis Wears glasses Physical Therapy Inpatient Evaluation/Re-Eval M1 PT/OT-IP Prior Functional Status Start: 01/21/24 13:14 Freq: NEEDED Status: Active Protocol: Document 01/22/24 09:25 AB (Rec: 01/22/24 12:10 AB [id number]) Medical Review Prior Functional Status Medical History Reviewed Yes Communication able to make needs known Mobility and Gait pt stated that he was modified independent with all mobilities and ambulation using a quad cane Social History Household Members spouse Living Arrangements House Number of Floors (Floors) Two Floors Number of Stairs To Enter/Railing? 4 steps to enter with L rail ascending 13 steps R rail ascending to get to kitchen/dining room Home Environment High Toilet,Tub/Shower Home Equipment Front Wheel Walker,Quad Cane, Hand Held Shower,Grab Bars Near Toilet,Grab Bars In Shower Additional Social History Comment pt stated that spouse works for 5 hours for 4 1/2 days/wk M2 PT-IP Current Condition Start: 01/21/24 13:14 Freq: NEEDED Status: Active Protocol: Document 01/22/24 09:25 AB (Rec: 01/22/24 12:10 AB [id number]) Physical Therapy Current Condition Current Condition Evaluation Date 01/22/24 Treatment Diagnosis PNA; difficulty in walking Onset Date 01/20/24 M3 PT-IP Subjective Start: 01/21/24 13:14 Freq: NEEDED Status: Active Protocol: Document 01/22/24 09:25 AB (Rec: 01/22/24 12:10 AB [id number]) Subjective Physical Therapy Visit Type Type Initial Evaluation Visit Start Time 09:25 Visit Stop Time 10:00 Number of SOFTWARE SALES EXECUTIVE Visits 0 Physical Therapy Visit Comments Patient Comments agreeable to do PT M4 PT-IP Mobility and Gait Start: 01/21/24 13:14 Freq: NEEDED Status: Active Protocol: Document 01/22/24 09:25 AB (Rec: 01/22/24 12:10 AB [id number]) PT-Bed Mobility Assessment Supine to Sit Supine to Sit Standby Assistance PT-Transfer Assessment Sit to and From Stand Sit to and from Stand Maximum Assistance,1 Person Assistance,Use of Upper Extremities Equipment Transfer Assistive Device Gait Belt,Front Wheeled Walker Orthotic/Prosthetic Devices or Brace: No Transfers Transfer Destination Toilet Transfer Technique ambulated Transfer Ability Level of Assist Moderate Assistance,Maximum Assistance,1 Person Assistance ,Use of Upper Extremities Comments Mobility Comments pt supine in bed and agreeable to do PT. obtained PLOF and home setup. BP: 118/73 O2 sat : 90-91% (+) SOB and pt is a mouth breather. pt completed supine to sit SBA . able to sit on EOB SBA. needs increase time to rest. pt with nasal cannula on but tube is not attached to O2. asked nurse if she wants pt off O2 or to put O2 back on. nurse stated to try pt without O2. pt completed sit to stand max A and max cues. pt ambulated in room ~ 20 ft using fWW mod to max A and max cues. increase RLE ER and tend to cross midline during ambulation. pt sat on the chair. O2 sat checked: 91-92% . pt requested to use the toilet. completed sit to stand from the chair max A and max cues and ambulated to the toilet using FWW mod to max A and cues. pt sat on the toilet and wanting to use the toilet for a few minutes. call light placed next to pt and instructed to ask for assistance when ready. informed nurse that pt is using the toilet and will call for assistance. Gait Assessment Gait Gait Assistance Required: Moderate Assistance,Maximum Assistance Distance (Feet) 20 Able to Maintain Weight Bearing Status Yes During Gait Assistive Devices Assistive Device Gait Belt,Front Wheeled Walker Orthotic/Prosthetic Devices or Brace: No Gait Deviations General Gait Pattern Antalgic,Ataxic,Decreased Stride Length,Decreased Feet Clearance Factors Limiting Gait Function Factors Limiting Gait Function Decreased Activity Tolerance, Decreased Strength,Limited Range of Motion,Poor Balance, Poor Safety Awareness PT-Balance Assessment Sitting Balance and Reactions Static Sitting Balance Ability Good Dynamic Sitting Balance Ability Good Standing Balance and Reactions Static Standing Balance Ability Fair Dynamic Standing Balance Ability Poor Device Used FWW M5 PT-IP Objective Assessments Start: 01/21/24 13:14 Freq: NEEDED Status: Active Protocol: Document 01/22/24 09:25 AB (Rec: 01/22/24 12:10 AB [id number]) Orientation Orientation/Cognition Level of Alertness Alert Orientation Name,Place,Situation Language Function Ability No Deficits Noted Safety Awareness Decreased Safety Awareness Memory Description No Deficits Noted Gross Range of Motion Lower Extremity ROM Assessment Within Functional Limits Strength Lower Extremity Strength Hip 4-/5 Knee 4-/5 Coordination Assessment Gross Coordination Gross Coordination WNL Muscle Tone Muscle Tone WNL Yes M6 PT-IP Treatment Start: 01/21/24 13:14 Freq: NEEDED Status: Active Protocol: Document 01/22/24 09:25 AB (Rec: 01/22/24 12:10 AB [id number]) Physical Therapy Treatment Education Education Provided Safety M7 PT-IP Assessment and Plan Start: 01/21/24 13:14 Freq: NEEDED Status: Active Protocol: Document 01/22/24 09:25 AB (Rec: 01/22/24 12:10 [id number]) PT Summary Assessment and Plan Potential Rehabilitation Potential Fair Status of Condition at Evaluation Evolving Summary Impairments Pain,ROM,Strength,Balance, Coordination,Sensation,Tone, Cognition,Bed Mobility, Transfers,Gait,Activity Tolerance Assessment Summary pt is a 74 y/o M who is admitted for PNA. pt with (+) SOB and O2 sat: 90-92% at RA. pt requiring max A for sit to stand and mod to max A for ambulation using FWW. presents with decrease activity tolerance and increase unsteadiness with ambulation towards end of ambulation. d/ c plan depends on progress. pt may require SNF rehab at this time. will continue to assess . Goals Bed Mobility Goal Independent Transfer Goal Independent,Front Wheeled Walker Gait Goal Independent,Front Wheel Walker Gait Distance 150 Other Goals improve transfers and ambulation using quad cane/ LRAD ~ 200 ft mod I up/down 4 steps L rail ascending ; up/down 13 steps R rail ascending SBA Days to Meet Goals 10 Frequency of Treatment Frequency Of Treatment Once a Day Treatment Plan Physical Therapy Treatment Plan Bed Mobility Training,Transfer Training,Gait Training, Therapeutic Exercise,Balance Retraining,Discharge Planning, Hot or Cold Pack,Neuromuscular Re-ed,Coordination Retraining Precautions Other Precautions O2 sat; falls Recommendations To Nursing Amount of Assist Needed 1 Person Assist Discharge Recommendations PT Discharge Recommendations Home with 22/09 Assist Available,Home Health,SNF Rehab,Home vs SNF Transportation Needs at Discharge Private Vehicle,Wheelchair/ Cabulance
[2024-01-22] MEDS: CHOLECALCIFEROL (VITAMIN D3) 5,000 UNIT TABLET 5000 UNIT PO (09:26)
[2024-01-22] MEDS: cefTRIAXone 1,000 MG in SODIUM CHLORIDE 0.9% 100 ML 200 MG IV (11:34)
--- NOTE | 2024-01-22 11:56 | CM.DPC ---
Addendum entered by GAURAV Rowe 01/22/24 15:39: DCP updated: Pt accepted for RN, PT and HH services with [facility]. Signed [id number] encounter completed and uploaded to chart. Plan: Discharge home when medically cleared, follow up with [facility] for RN, PT, and HH services. NICK Vallejo Addendum entered by GAURAV Rowe 01/22/24 14:44: Per PT evaluation, pt recommended for home with hh vs. SNF. DCP entered room introduced self and role. Present in the room is pt's . Per pt, pt hopeful to discharge home when medically cleared, open to home health referral as discussed with PT. DCP provided Medicare choice list, pt and spouse indicated [facility] as first preference. DCP discussed the above with hospitalist, indicated understanding of plan. Determined pt to discharge either Thursday or Thursday, 01/23. DCP sent referral to [facility] Facesheet completed and uploaded to EMR. NICK Vallejo Original Note: DCP Continued: Reviewed EMR and team rounds for pt?s medical status. Per rounds, PT evaluation to be completed today if appropriate. Patient was denying PT the previous day due to feeling dyspneic. No other discharge plans identified at this time, pending PT evaluation for possible referral for HH. Plan: Anticipating discharge home with spouse when medically cleared. CM Team will continue to follow for coordination of discharge plans. NICK Vallejo
[2024-01-22] MEDS: AZITHROMYCIN 500 MG in DEXTROSE 5% IN WATER 250 ML 250 MG IV (12:26)
[2024-01-22] MEDS: ALBUTEROL/IPRATROPIUM 3 ML AMPUL INH (13:30)
[2024-01-22] MEDS: polyethylene glycoL 3350 17 GM POWD.PACK PO (14:36)
[2024-01-22] MEDS: BENZOCAINE/MENTHOL 1 LOZ PKT 1 EACH PO (17:20)
[2024-01-22] MEDS: BENZONATATE 100 MG CAPSULE PO (17:20)
--- NOTE | 2024-01-22 21:21 | PC.NURSE ---
Patient denies SOB, but is visually SOB, has to pause between words to take longer breaths. Upon standing to urinate patient desat to 85%. Updated plan of care to place oxygen on during any exertion.
[2024-01-23] MEDS: ALPRAZolam 0.25 MG TABLET 0.5 MG PO (00:45)
[2024-01-23] MEDS: CODEINE/GUAIFENESIN LIQUID 5ML UDC 5 ML PO ×3 (00:45→20:35)
[2024-01-23 06:41] LABS: Add Manual Diff / Slide Review NO; Basophils Absolute Auto 0 /uL (0-100); Basophils Percent Auto 0.5 % (0-2); Eosinophils Absolute Auto 400 /uL (0-450); Eosinophils Percent Auto 4.3 % (2-4); Hemoglobin 15.2 g/dL (13.5-17.5); Lymphocytes Absolute Auto 600 /uL (1100-4500); Lymphocytes Percent Auto 6.2 % (25-40); Mean Corpuscular HGB Conc 33.8 % (30-36); Mean Corpuscular Hemoglobin 30.5 PG (26-34); Mean Corpuscular Volume 90.1 fL (80-100); Monocytes Absolute Auto 1100 /uL (0-900); Monocytes Percent Auto 11.1 % (3-14); Neutrophils Absolute Auto 7600 /uL (1500-7000); Neutrophils Percent Auto 77.9 % (50-75); Platelet Count 205 X10^3/uL (150-400); Red Cell Distribution Width 15.3 % (11.6-14.8); White Blood Cell Count 9.8 X10^3/uL (4.5-11.0)
[2024-01-23 07:02] LABS: BUN Creatinine Ratio 22.6 (6-22); Blood Urea Nitrogen 21 mg/dL (9-20); Calcium 8.5 mg/dL (8.4-10.2); Carbon Dioxide 26 mmol/L (22-32); Chloride 104 mmol/L (98-107); Estimated Glomerular Filt Rate > 60 mL/min (>60); Glucose 129 mg/dL (80-110); HEMOLYSIS < 15 (0-50); Magnesium 2.1 mg/dL (1.6-2.3); Sodium 135 mmol/L (137-145)
[2024-01-23 08:15] VITALS: O2SAT 93
[2024-01-23] MEDS: METOPROLOL ER 50 MG TABLET 25 MG PO ×2 (08:53→20:37)
[2024-01-23] MEDS: APIXABAN 5 MG TABLET PO ×2 (08:53→20:38)
[2024-01-23] MEDS: polyethylene glycoL 3350 17 GM POWD.PACK PO (08:53)
[2024-01-23] MEDS: AMLODIPINE 5 MG TABLET PO (08:53)
[2024-01-23] MEDS: LOSARTAN 50 MG TABLET PO ×2 (08:54→20:35)
[2024-01-23] MEDS: BENZONATATE 100 MG CAPSULE PO (09:00)
[2024-01-23] MEDS: cefTRIAXone 1,000 MG in SODIUM CHLORIDE 0.9% 100 ML 200 MG IV (09:39)
[2024-01-23] MEDS: CHOLECALCIFEROL (VITAMIN D3) 5,000 UNIT TABLET 5000 UNIT PO (09:50)
--- NOTE | 2024-01-23 10:08 | PT.IPTN ---
Current Diagnoses Sepsis, unspecified organism (01/20/24) Physical Therapy Treatment Note M2 PT-IP Current Condition Start: 01/21/24 13:14 Freq: NEEDED Status: Active Protocol: Document 01/22/24 09:25 AB (Rec: 01/22/24 12:10 AB [id number]) Physical Therapy Current Condition Current Condition Evaluation Date 01/22/24 Treatment Diagnosis PNA; difficulty in walking Onset Date 01/20/24 M3 PT-IP Subjective Start: 01/21/24 13:14 Freq: NEEDED Status: Active Protocol: Document 01/23/24 10:32 TS (Rec: 01/23/24 10:47 TS [id number]) Subjective Physical Therapy Visit Type Type Treatment Note Visit Start Time 10:08 Visit Stop Time 10:32 Number of GRADUATE INTERN Visits 1 Physical Therapy Visit Comments Patient Comments Pt found resting in the chair, he is agreeable to PT. M4 PT-IP Mobility and Gait Start: 01/21/24 13:14 Freq: NEEDED Status: Active Protocol: Document 01/23/24 10:32 TS (Rec: 01/23/24 10:47 TS [id number]) PT-Transfer Assessment Sit to and From Stand Sit to and from Stand Minimal Assistance,1 Person Assistance,Use of Upper Extremities Equipment Transfer Assistive Device Gait Belt,Front Wheeled Walker Orthotic/Prosthetic Devices or Brace: No Comments Mobility Comments Spo2 94% on 2L's. STS with FWW Raymond with cues for STS technique. Pt ambulates in the room ~20'CGA/SBA with FWW. He performs steps x3 Raymond/ModA with RAILWAY SIGNAL OPERATOR and rail support. Spo2 93% on 2L's at end of session. Pt was left back in the chair, all needs met. Gait Assessment Gait Gait Assistance Required: Standby Assistance,Contact Guard Assist Distance (Feet) 20 Able to Maintain Weight Bearing Status Yes During Gait Assistive Devices Assistive Device Gait Belt,Front Wheeled Walker Gait Deviations General Gait Pattern Antalgic,Ataxic,Decreased Stride Length,Decreased Feet Clearance Factors Limiting Gait Function Factors Limiting Gait Function Decreased Activity Tolerance, Decreased Strength,Limited Range of Motion,Poor Balance, Poor Safety Awareness Stair Climbing Assessment Evaluation Level of Assist On Stairs Minimal Assistance,Moderate Assistance,1 Person Assistance Devices Stair Climbing Assistive Devices Left Railing Technique/Endurance Stair Climbing Direction Ascend and Descend Stair Climbing Technique Step to Step Number of Steps Climbed 3 Comments Stair Climbing Comments See mobility comments PT-Balance Assessment Sitting Balance and Reactions Static Sitting Balance Ability Good Dynamic Sitting Balance Ability Good Standing Balance and Reactions Static Standing Balance Ability Fair Dynamic Standing Balance Ability Fair Device Used FWW M5 PT-IP Objective Assessments Start: 01/21/24 13:14 Freq: NEEDED Status: Active Protocol: Document 01/22/24 09:25 AB (Rec: 01/22/24 12:10 AB [id number]) Orientation Orientation/Cognition Level of Alertness Alert Orientation Name,Place,Situation Language Function Ability No Deficits Noted Safety Awareness Decreased Safety Awareness Memory Description No Deficits Noted Gross Range of Motion Lower Extremity ROM Assessment Within Functional Limits Strength Lower Extremity Strength Hip 4-/5 Knee 4-/5 Coordination Assessment Gross Coordination Gross Coordination WNL Muscle Tone Muscle Tone WNL Yes M6 PT-IP Treatment Start: 01/21/24 13:14 Freq: NEEDED Status: Active Protocol: Document 01/23/24 10:32 TS (Rec: 01/23/24 10:47 TS [id number]) Physical Therapy Treatment Education Education Provided Safety M7 PT-IP Assessment and Plan Start: 01/21/24 13:14 Freq: NEEDED Status: Active Protocol: Document 01/23/24 10:32 TS (Rec: 01/23/24 10:47 TS [id number]) PT Summary Assessment and Plan Potential Rehabilitation Potential Fair Summary Impairments Pain,ROM,Strength,Balance, Coordination,Sensation,Tone, Cognition,Bed Mobility, Transfers,Gait,Activity Tolerance Progress Towards Goals Slow Progress due to Activity Tolerance Assessment Summary Jewel is making some progress with his mobility but is limited by weakness and low activity tolerance. He continues to ambulate short distances in the room with use of FWW. He progressed to stairs x3 with Raymond/ModA. PT continues to recommend SNF vs Home at this time. Pt most likely to progress to home. Goals Bed Mobility Goal Independent Transfer Goal Independent,Front Wheeled Walker Gait Goal Independent,Front Wheel Walker Gait Distance 150 Other Goals improve transfers and ambulation using quad cane/ LRAD ~ 200 ft mod I up/down 4 steps L rail ascending ; up/down 13 steps R rail ascending SBA Days to Meet Goals 10 Frequency of Treatment Frequency Of Treatment Once a Day Treatment Plan Physical Therapy Treatment Plan Bed Mobility Training,Transfer Training,Gait Training, Therapeutic Exercise,Balance Retraining,Discharge Planning, Hot or Cold Pack,Neuromuscular Re-ed,Coordination Retraining Precautions Other Precautions O2 sat; falls Recommendations To Nursing Amount of Assist Needed 1 Person Assist Discharge Recommendations PT Discharge Recommendations Home with 22/09 Assist Available,Home Health,SNF Rehab,Home vs SNF Transportation Needs at Discharge Private Vehicle,Wheelchair/ Cabulance
[2024-01-23 10:50] VITALS: BP 141/63; PULSE 80; RESP 20; TEMP 36.4; O2SAT 91
[2024-01-23] MEDS: ACETAMINOPHEN 325 MG TABLET 650 MG PO (11:03)
[2024-01-23] MEDS: BENZOCAINE/MENTHOL 1 LOZ PKT 1 EACH PO ×2 (11:03→20:37)
--- NOTE | 2024-01-23 14:02 | PM.PN.1 ---
Subjective Subjective Interval history: 77-year-old male with previous history of stroke permanent atrial fibrillation, previous permanent pacemaker placement for complete heart block, bovine aortic valve replacement, CHF with preserved ejection fraction, mantle cell lymphoma who is presently hospital day number 4, admitted with sepsis secondary to bacterial pneumonia, acute hypoxic respiratory failure, possible acute on chronic diastolic heart failure. Patient reports he is feeling a bit better today. He states he is feeling a bit more energetic. He does continue to feel breathless. He notes he has had dyspnea for ?a long time?. He states the dyspnea had become so severe he was having difficulty turning over in bed. He does admit to difficulty with dysphagia. He has had difficulty swallowing water but notes no trouble with thicker liquids such as chocolate milk. He also notes trouble with dry foods such as toast or crackers. His daughter reports he has had some dysphagia since his stroke. He does not usually use any thickeners and is not on a modified diet. Exam Vital Signs (past 8 hours): - 01/23/24 08:15 01/23/24 10:50 Temperature 97.6 F Pulse Rate 80 Respiratory Rate 20 Blood Pressure 141/63 H Pulse Oximetry 93 91 Oxygen Delivery Method Nasal Cannula Oxygen Flow Rate 1 2 Fraction of Inspired Oxygen 28 SaO2/FiO2 Ratio 335 Oxygen Delivery Method Nasal Cannula Oxygen Flow Rate 2 Narrative Exam Narrative: GEN: Very pleasant elderly male, Alert and oriented x 3, NAD HEENT:NC, Face symmetric CHEST: Conversationally dyspneic, Respiratory excursions symmetric, crackles in the mid left lung zone, oxygen via nasal cannula in place CV: RRR, no M/R/G ABD: Soft, obese, NT/ND, BT present in all 4 quadrants, body habitus limits exam EXTR: warm, well perfused, no C/C/1+ bilateral lower extremity pitting edema SKIN: warm and dry, no rash NEURO: Alert and oriented x 3, nonfocal Objective Labs 01/23/24 06:10 01/23/24 06:10 Labs: Laboratory Results - last 24 hr 01/23/24 06:10 WBC 9.8 RBC 5.00 Hgb 15.2 Hct 45.0 MCV 90.1 MCH 30.5 MCHC 33.8 RDW 15.3 H Plt Count 205 Neut % (Auto) 77.9 H Lymph % (Auto) 6.2 L Chambers % (Auto) 11.1 Eos % (Auto) 4.3 H Baso % (Auto) 0.5 Neut # (Auto) 7600 H Lymph # (Auto) 600 L Chambers # (Auto) 1100 H Eos # (Auto) 400 Baso # (Auto) 0 Sodium 135 L Potassium 4.0 Chloride 104 Carbon Dioxide 26 BUN 21 H Creatinine 0.93 Estimated GFR > 60 BUN/Creatinine Ratio 22.6 H Glucose 129 H Calcium 8.5 Magnesium 2.1 [facility] Medical History Plantar fasciitis (10/02/10) Melanoma (~1979) Tinea pedis Onychomycosis Complete heart block Atrial fibrillation Osteopenia of femoral neck, bilateral (~12/2018) Mantle cell lymphoma (~10/2017) Squamous cell carcinoma (08/2019) CVA (cerebral vascular accident) (~11/2017) Pacemaker (~04/2018) Mild aortic stenosis by prior echocardiogram (08/13/11) Wears glasses Chronic back pain Mumps Measles Chicken pox Kidney stones (~1975) Skin cancer (~2004) TIA (transient ischemic attack) (~2009) Surgical History S/P TAVR (transcatheter aortic valve replacement) (~04/2018) Anesthesia History of tonsillectomy Status post cardiac pacemaker procedure (~05/14/18) S/P bronchoscopy with biopsy Family History Father Lung cancer Mother Parkinson's disease Sister Bladder cancer Social History household members: spouse Smoking Status: Never smoker alcohol intake: never substance use type: does not use Assessment & Plan Assessment & Plan narrative: 1. Multifocal pneumonia Gradually improving. White blood cell count has normalized. Oxygen need is decreasing. He continues to cough but notes his sputum is clearing. He is feeling a bit more energetic overall, but continues to complain of dyspnea. I do believe he has some chronic aspiration and it is possible he has a component of aspiration accountable for this pneumonia. However, he is clinically showing improvement on community-acquired pneumonia treatment. 2. Acute hypoxic respiratory failure Improving. He remains on 2 L of oxygen. Will wean as tolerated. Suspect he has a component of chronic aspiration from dysphagia. Would benefit from a speech therapy evaluation. 3. Acute on chronic congestive heart failure with preserved ejection fraction Echocardiogram done this admission revealed an ejection fraction of 55-60%, moderate concentric LVH. Normal size and function of the right ventricle. RVSP at least 48 mmHg. Severely dilated left atrium. [id number] . Mild AR. He received diuresis earlier this hospitalization. Currently appears euvolemic. He does have torsemide as needed on his home meds. Will monitor. No further diuresis plan for now 4. Paroxysmal atrial fibrillation Continue home metoprolol and apixaban. He is rate controlled. 5. Hypertension Blood pressure well controlled presently. Continue amlodipine. 6. History of mantle cell lymphoma Reportedly in remission 7. His history of stroke He does notes weakness worse than baseline. PT has recommended home health for PT and OT at discharge. Code status Full Prophylaxis On Eliquis Disposition Home with home health at discharge. He remains too dyspneic at rest at this point for discharge home Time-Based Coding :: [TOTAL MINUTES] spent with patient and on the chart (including review of chart, obtaining history, exam, reviewing outside data, placing orders, documenting exam and treatment plan, and counseling patient) on [DATE]. Quality VTE Deep Vein Thrombosis/Pulmonary Embolism Present on Admission: No
[2024-01-23 20:00] VITALS: BP 136/78; PULSE 74; RESP 23; TEMP 36.7; O2SAT 94
[2024-01-23] MEDS: ALBUTEROL/IPRATROPIUM 3 ML AMPUL INH (20:15)
[2024-01-23 20:35] VITALS: BP 116/70; PULSE 77
[2024-01-23 21:58] VITALS: PULSE 63
[2024-01-24] VITALS (12 sets, daily range): BP systolic 99–138; BP diastolic 47–79; PULSE 49–98; RESP 18–22; TEMP 36.2–37.2; O2SAT 91–99
[2024-01-24] MEDS: ALPRAZolam 0.25 MG TABLET 0.5 MG PO (05:00)
[2024-01-24] MEDS: CODEINE/GUAIFENESIN LIQUID 5ML UDC 5 ML PO ×3 (06:58→20:47)
[2024-01-24] MEDS: APIXABAN 5 MG TABLET PO ×2 (08:07→21:27)
[2024-01-24] MEDS: CHOLECALCIFEROL (VITAMIN D3) 5,000 UNIT TABLET 5000 UNIT PO (08:07)
[2024-01-24] MEDS: BENZOCAINE/MENTHOL 1 LOZ PKT 1 EACH PO (08:11)
[2024-01-24] MEDS: BENZONATATE 100 MG CAPSULE PO (08:11)
[2024-01-24] MEDS: cefTRIAXone 1,000 MG in SODIUM CHLORIDE 0.9% 100 ML 200 MG IV (09:49)
--- NOTE | 2024-01-24 11:48 | CM.DPNOTE ---
DCP Cont Reviewed chart. Patient discussed in multidisciplinary rounds. Patient is slowly improving clinically. According to Dr Roy, due to patient's known risk of aspiration, BUSINESS OFFICE SPECIALIST has been ordered to see patient Thursday. Plan remains discharge home w/spouse, [facility] and close outpatient follow up. CM team following clinical course closely. MATT
[2024-01-24] MEDS: ERYTHROMYCIN OPHTH 1 GM OINT 1 APPLIC EYE-BOTH ×2 (12:54→21:27)
--- NOTE | 2024-01-24 13:14 | P.PN_ITS ---
Subjective Subjective Interval history: 77-year-old male with previous history of stroke permanent atrial fibrillation, previous permanent pacemaker placement for complete heart block, bovine aortic valve replacement, CHF with preserved ejection fraction, mantle cell lymphoma who is presently hospital day number 5, admitted with sepsis secondary to bacterial pneumonia, acute hypoxic respiratory failure, possible acute on chronic diastolic heart failure. Patient reports he is feeling better w/regard to his breathing but continues to have difficulty getting up to the bathroom. Had 2 accidents in bed overnight. He continues to have COOPER. Frequent cough w/occasional sputum production. C/o significant Rt eye pain and sensitivity this am. Crusting to L eye as well. Exam Vital Signs (past 8 hours): - 01/24/24 08:00 01/24/24 08:12 01/24/24 08:13 Temperature 97.1 F L Pulse Rate 91 H 72 Respiratory Rate 20 Blood Pressure 99/55 L 99/55 L 99/55 L Pulse Oximetry 92 Oxygen Flow Rate 0 Fraction of Inspired Oxygen 28 SaO2/FiO2 Ratio 335 Oxygen Delivery Method Room Air Oxygen Flow Rate 0 Narrative Exam Narrative: GEN: Very pleasant elderly male, Alert and oriented x 3, NAD, sitting up in chair HEENT:NC, Face symmetric, bilateral conjunctivae injected and erythematous, crusting to Left lower eyelid CHEST: Respiratory excursions symmetric, persistent but decreased crackles in the mid left lung zone,coarse but clr on the R CV: RRR, no M/R/G ABD: Soft, obese, NT/ND, BT present in all 4 quadrants, body habitus limits exam EXTR: warm, well perfused, no C/C/1+ bilateral lower extremity pitting edema SKIN: warm and dry, no rash NEURO: Alert and oriented x 3, nonfocal Objective Labs 01/23/24 06:10 01/23/24 06:10 [facility] Medical History Plantar fasciitis (10/02/10) Melanoma (~1979) Tinea pedis Onychomycosis Complete heart block Atrial fibrillation Osteopenia of femoral neck, bilateral (~12/2018) Mantle cell lymphoma (~10/2017) Squamous cell carcinoma (08/2019) CVA (cerebral vascular accident) (~11/2017) Pacemaker (~04/2018) Mild aortic stenosis by prior echocardiogram (08/13/11) Wears glasses Chronic back pain Mumps Measles Chicken pox Kidney stones (~1975) Skin cancer (~2004) TIA (transient ischemic attack) (~2009) Surgical History S/P TAVR (transcatheter aortic valve replacement) (~04/2018) Anesthesia History of tonsillectomy Status post cardiac pacemaker procedure (~05/14/18) S/P bronchoscopy with biopsy Family History Father Lung cancer Mother Parkinson's disease Sister Bladder cancer Social History household members: spouse Smoking Status: Never smoker alcohol intake: never substance use type: does not use Assessment & Plan Assessment & Plan narrative: 1. Multifocal pneumonia Gradually improving. White blood cell count has normalized. Weaned to RA overnight. He continues to cough but notes his sputum is clearing. He is feeling a bit more energetic overall, but continues to complain of dyspnea. I do believe he has some chronic aspiration and it is possible he has a component of aspiration accountable for this pneumonia. However, he is clinically showing improvement on community-acquired pneumonia treatment. I have requested a ST eval. I am uncertain if they will be in hospital tomorrow to do an assessment. Will order an MBS as well. 2. Acute hypoxic respiratory failure Resolved. Suspect he has a component of chronic aspiration from dysphagia. Would benefit from a speech therapy evaluation as noted. 3. Acute on chronic congestive heart failure with preserved ejection fraction Echocardiogram done this admission revealed an ejection fraction of 55-60%, moderate concentric LVH. Normal size and function of the right ventricle. RVSP at least 48 mmHg. Severely dilated left atrium. [id number] . Mild AR. He received diuresis earlier this hospitalization. Currently appears euvolemic. He does have torsemide as needed on his home meds. Will monitor. No further diuresis plan for now 4. Paroxysmal atrial fibrillation Continue home metoprolol and apixaban. He is rate controlled. 5. Hypertension Blood pressure mildly hypotensive today. Holding losartan, amlodipine and losartan this am. 6. History of mantle cell lymphoma Reportedly in remission 7. His history of stroke He does notes weakness worse than baseline. PT has recommended home health for PT and OT at discharge. Code status Full Prophylaxis On Eliquis Disposition Home with home health at discharge. Plan likely d/c tomorrow pending assessment for dysphagia. Time-Based Coding :: [TOTAL MINUTES] spent with patient and on the chart (including review of chart, obtaining history, exam, reviewing outside data, placing orders, documenting exam and treatment plan, and counseling patient) on [DATE]. Quality VTE Deep Vein Thrombosis/Pulmonary Embolism Present on Admission: No
--- NOTE | 2024-01-24 13:21 | PT-IP ANOTE ---
PT checks on pt who is resting in bed and he presents with SOB at rest. He reports his eyes/vision is blurry after getting lotion in eyes and he declines OOB and gait currently. He, and nsg report he was up ambulating in hallway on RA last date and sats were WNLs. states she feels ready to manage pt at home.
[2024-01-24] MEDS: ALBUTEROL/IPRATROPIUM 3 ML AMPUL INH (21:13)
[2024-01-24] MEDS: LOSARTAN 50 MG TABLET PO (21:27)
[2024-01-24] MEDS: METOPROLOL ER 50 MG TABLET 25 MG PO (21:28)
[2024-01-24] MEDS: ACETAMINOPHEN 325 MG TABLET 650 MG PO (22:08)
[2024-01-25] MEDS: ALPRAZolam 0.25 MG TABLET 0.5 MG PO ×2 (01:10→07:48)
[2024-01-25 03:00] VITALS: BP 135/51; PULSE 75; RESP 20; TEMP 36.5; O2SAT 94
[2024-01-25] MEDS: CARBOXYMETHYLCELLULOSE DROPS 1 DROPS EYE-BOTH ×2 (04:34→09:54)
[2024-01-25 07:00] VITALS: BP 140/68; PULSE 86; RESP 22; TEMP 36.4; O2SAT 92
[2024-01-25] MEDS: METOPROLOL ER 50 MG TABLET 25 MG PO (10:04)
[2024-01-25] MEDS: LOSARTAN 50 MG TABLET PO (10:05)
[2024-01-25] MEDS: APIXABAN 5 MG TABLET PO (10:05)
[2024-01-25] MEDS: AMLODIPINE 5 MG TABLET PO (10:05)
[2024-01-25] MEDS: ERYTHROMYCIN OPHTH 1 GM OINT 1 APPLIC EYE-BOTH (10:06)
--- NOTE | 2024-01-25 10:08 | ST.IPCSEOM ---
Visit Care Team Role Provider Type Danielle Kennedy DO Family Provider Physician Primary Care Provider Specialty: Medical Address: [address] [place] [address], [address], [place], [address] Email: [email or web address] Apple MD Emergency Provider Physician Referring Provider Specialty: Emergency Medicine Address: [address] [place] [address], [address] Email: [email or web address] DO Admit Provider Physician Attending Provider Specialty: Internal Medicine Address: [address] [place] [address], [id number] Email: [email or web address] Diagnoses Sepsis, unspecified organism (01/20/24) Past Medical History (Last Reviewed 01/21/24 @ 07:23 by Deshawn Ariza MD) Atrial fibrillation (Medical) Chicken pox (Medical) Child Chronic back pain (Medical) Complete heart block (Medical) CVA (cerebral vascular accident) (Medical ~11/2017) ischemic, MCA territory, LUE/LLE strength affected Kidney stones (Medical ~1975) Mantle cell lymphoma (Medical ~10/2017) Measles (Medical) Child Melanoma (Medical ~1979) MRI 2009, 2017 Mild aortic stenosis by prior echocardiogram (Medical 08/13/11) Mumps (Medical) Child Onychomycosis (Medical) Osteopenia of femoral neck, bilateral (Medical ~12/2018) DEXA Pacemaker (Medical ~04/2018) Plantar fasciitis (Medical 10/02/10) Skin cancer (Medical ~2004) Squamous cell carcinoma (Medical 08/2019) TIA (transient ischemic attack) (Medical ~2009) Tinea pedis (Medical) Wears glasses (Medical) 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 Bianca Roy Reason for Referral bacterial PNA, CVA, hx of dysphagia Setting Assessment Location Acute Care Visit Type Note Type Initial evaluation Next Note Type Next Note Type Treatment Note Patient Information Identification Type Name,Wristband History Per H&P: 77-year-old male with previous history of stroke permanent atrial fibrillation, previous permanent pacemaker placement for complete heart block, bovine aortic valve replacement, CHF with preserved ejection fraction, mantle cell lymphoma who is presently hospital day number 4, admitted with sepsis secondary to bacterial pneumonia, acute hypoxic respiratory failure, possible acute on chronic diastolic heart failure. Patient reports he is feeling a bit better today. He states he is feeling a bit more energetic. He does continue to feel breathless. He notes he has had dyspnea for ?a long time?. He states the dyspnea had become so severe he was having difficulty turning over in bed. He does admit to difficulty with dysphagia. He has had difficulty swallowing water but notes no trouble with thicker liquids such as chocolate milk. He also notes trouble with dry foods such as toast or crackers. His daughter reports he has had some dysphagia since his stroke. He does not usually use any thickeners and is not on a modified diet. ST referred for ST evaluation d/t Pt with bacterial PNA, possible aspiration PNA, and hx of CVA and dysphagia Subjective Observations Pt sitting upright in chair in room. Pt oriented to time, place and person. He reports he had a stroke in 2018 and a TIA prior to that. He denies any hx of PNA since his strokes. He reports swallowing difficulty at home, specifically swallowing dry, crumbling foods such as crackers and chokes every time he drinks liquids. He reports he consumes regular solids and thin liquids at home. He reports he makes sure he eats and drinks slowly. Reported by Patient/Caregiver Pain/Discomfort No Other Symptoms Choking,Coughing,Difficulty swallowing liquids,Difficulty swallowing solids,Food gets stuck Current Diet Regular (IDDSI 7) Baseline Feeding Method Independent in self-feeding The IDDSI Framework Protocol: IDDSI.1 Objective Assessment Mental Status Alert,Responsive,Cooperative Oral Integrity WFL Dentition Within normal limits Comment Pt with natural dentition, missing some, however good condition. Pt reports he brushehs his teeth all the time. ROM and strength for oral musculature appeared WFL. Food and Liquid Trials Position During Assessment Upright (90 degrees) Liquids Trialed Thin (IDDSI 0) Solid Trials Soft & Bite-sized (IDDSI 6), Regular (IDDSI 7) Administration Type Cup single sip,Cup consecutive sips,Straw,Self-feeding Oral Impairment Mildly impaired Oral Phase Comments Pt with reduced PO intake d/t him reporting he just ate breakfast. Pt consumed a few bites of a peanut butter and jelly sandwich, 1 neetu cracker, and about 8 oz of thin water via cup and straw. For solids, Pt demonstrated adequate bite size and rate, prolonged matication, however adequate bolus formation and control, mild oral stasis with cracker, prolonged ap transport. For thin water via cup, Pt exhibited adequte sip size and rate, good oral acceptance and containment, suspected loss of bolus resulting in premature spillage. Thin water via straw , good suction. Pharyngeal Impairment Moderately impaired Pharyngeal Phase Comments For thin water via cup, Pt demonstrated suspected delay in swallow, audible swallow reflex, consecutive swallows, clear vocal quality. Pt with 1x immediate cough reflex after consuming water via straw and 1x delayed cough reflex. Fatigue/Endurance Mild fatigue The IDDSI Framework Protocol: IDDSI.1 Findings Swallowing Function Oropharyngeal phase dysphagia Severity of Swallow Impairment Mildly-moderately impaired Prognosis Good Based on Cognitive status,Family support Impact on Safety and Functioning Risk for aspiration Recommendations Instrumental Assessment Yes Swallowing Treatment Yes Frequency Daily while inpatient Recommended Solids Regular (IDDSI 7) Recommended Liquids Thin (IDDSI 0) Other Recommendations Pt presents with mild-mod oropharyngeal dysphagia. ST recommends IDDSI 7/IDDSI 0 with the below mentioned safe swallowing strategies in place . ST recommends no straws and educated Pt on safe swallowing strategies and reason for them. ST also recommends MBS to rule out aspiration/silent aspiration. Safety Precautions/Swallowing Remain upright (90 degrees) Recommendations during all oral intake,Upright position at least 30 minutes after meals,Small bites and sips when eating,Slow rate; swallow between bites,No straw ,Alternate liquids and solids, Strict oral care after intake Medication Recommendations As Tolerated Discharge Recommendations Home Education Patient/Caregiver Education Described results of evaluation,Patient expressed understanding of evaluation, Patient expressed agreement with goals & treatment plans, Family/caregivers require further education/training Goals Short-term Goals STG 1: Patient will utilize safe swallowing strategies 90% of the time with minimal verbal cues in order to consume safest and most efficient least restrictive diet. STG 2: Patient will tolerate IDDSI 7/IDDSI 0 with no clinical s/s of dysphagia 100% of the time in order to consume least restrictive diet . Long-term Goals LTG: Patient will tolerate safest and most efficient diet with no clinical s/s of aspiration or dysphagia 100% of the time in order to consume least restrictive diet .
--- NOTE | 2024-01-25 10:45 | P.DS_ITS ---
History of Present Illness History of Present Illness Chief complaint: shallow breathing Narrative: From H&P: 74 M with PMH of afib, CVA, PPM for complete heart block, and bovine aortic valve replacement, CHFpEF, mantle cell lymphoma who presents with 3 days of worsening shortness of breath. Denies fever, chills, chest pain. Does have a minimally / intermittently productive cough of brown sputum. No abdominal pain, nausea, vomiting, or diarrhea. He denies any weight changes, and his legs are not any more swollen than normal he thinks, and his left leg has always been more swollen than his right after his stroke. In the emergency room, the patient was hypoxic on room air and saturating at approximately 90% on 2 L. Laboratory evaluation was notable for leukocytosis with WBC 16.2, total bilirubin was elevated at 2.0 without elevations in AST, ALT, or alk-phos. Troponin was indeterminate at 0.067, and repeat was the same. ProBNP was elevated at 5450. Procalcitonin was also elevated at 4.67. Complete respiratory panel was negative. CT angiogram of his chest showed no pulmonary embolism but did show multifocal consolidations. Discharge Providers Provider Date of admission: 01/20/24 12:25 Discharge Date: 01/25/24 Primary care physician: Danielle Kennedy DO Consults: 01/21/24 10:27 Consult to Physical Therapy Evaluate & Treat Comment: Physician Instructions: Evaluate and Treat 01/22/24 15:21 Consult to Home Health Routine Comment: RN, PT, HH Aide Reason For Exam: Pneumonia, Lymphedema, AFib, Aortic Stenosis 01/23/24 14:14 Consult to Speech Therapy Evaluate & Treat Comment: Physician Instructions: Evaluate and treat Discharge provider: Deshawn Ariza MD Summary Hospital Course Discharge Diagnosis: 1. Multifocal pneumonia with history of bronchiectasis, present on admission and improved. 2. Acute hypoxic respiratory failure, present on admission and resolved. 3. Acute on chronic congestive heart failure with preserved ejection fraction, present on admission and improved. 4. Paroxysmal atrial fibrillation with RVR, present on admission and improved. 5. Hypertension, present on admission and stable. 6. History of mantle cell lymphoma, in remission. 7. Remote stroke Hospital Course: He was admitted for pneumonia and hypoxic respiratory failure. He was treated with broad-spectrum antibiotics and discussed with Pulmonary who saw him consultation. With his history of bronchiectasis, they recommended 10 days of IV antibiotics. Negative nares MRSA screen was obtained. He will be treated with a 10 day course of Zosyn. His hospitalization was complicated by AFib and RVR which was refractory to any measures to control the heart rate with diltiazem, metoprolol, or amiodarone. He was given digoxin and ultimately did have a cardioversion spontaneously. The day of discharge he felt well enough to return home and had a PICC placed due to a failed midline 2 days before. The patient will have cefepime Q 8 hours at home for a total treatment course of [address] Arriola is following IV antibiotics, pulmonary Medicine. Status at Discharge Cognitive/behavioral status at discharge: oriented Functional status at discharge: independent ambulation Overall status at discharge: patient is back to baseline Time Spent with Patient Time spent: Greater than 30 minutes Exam Vital Signs (past 8 hours): - 01/25/24 03:00 01/25/24 07:00 Temperature 97.7 F 97.6 F Pulse Rate 75 86 Respiratory Rate 20 22 Blood Pressure 135/51 L 140/68 Pulse Oximetry 94 92 Oxygen Flow Rate 0 0 Fraction of Inspired Oxygen 28 SaO2/FiO2 Ratio 335 Oxygen Delivery Method Room Air Oxygen Flow Rate 0 Narrative Exam Narrative: NAD, alert and oriented. Fluent speech. Lungs are clear, normal rate and effort. Heart is regular, no murmur gallop or rub. Abdomen is soft, non distended. Extremities are free of edema. Objective ECG Impression: Atrial fibrillation with occasional ventricular-paced complexes Left axis deviation Incomplete right bundle branch block Minimal voltage criteria for LVH, may be normal variant ( Seymour product ) Anteroseptal infarct , age undetermined Imaging CT scan - chest: Radiologist's impression: No pulmonary embolus. Multifocal consolidation, either infection or possibly aspiration due to distribution. Correlate with risk factors for aspiration and consider speech pathology referral. Recommend follow-up in 1-2 months with chest x-ray to ensure resolution. Reflux of contrast into the IVC, indicating elevated heart pressures. Venous US: Radiologist's impression: No findings of deep venous thrombosis in either lower extremity. Complex right Maki's cyst. Venous stasis as above without superficial thrombophlebitis. Echo: Radiologist's impression: The patient was in atrial fibrillation with heart rates between 81-100 bpm during the exam. The study quality was technically difficult. There is moderate concentric left ventricular hypertrophy. The ejection fraction is estimated to be 55-60%. The right ventricle is normal in size and function. The right ventricular systolic pressure is estimated to be at least 48 mmHg based on an estimated right atrial pressure of 3 mm Hg. The left atrium is severely dilated. There is mild to moderate aortic stenosis. There is mild aortic regurgitation Labs 01/23/24 06:10 01/23/24 06:10 [facility] Medical History Plantar fasciitis (10/02/10) Melanoma (~1979) Tinea pedis Onychomycosis Complete heart block Atrial fibrillation Osteopenia of femoral neck, bilateral (~12/2018) Mantle cell lymphoma (~10/2017) Squamous cell carcinoma (08/2019) CVA (cerebral vascular accident) (~11/2017) Pacemaker (~04/2018) Mild aortic stenosis by prior echocardiogram (08/13/11) Wears glasses Chronic back pain Mumps Measles Chicken pox Kidney stones (~1975) Skin cancer (~2004) TIA (transient ischemic attack) (~2009) Surgical History S/P TAVR (transcatheter aortic valve replacement) (~04/2018) Anesthesia History of tonsillectomy Status post cardiac pacemaker procedure (~05/14/18) S/P bronchoscopy with biopsy Family History Father Lung cancer Mother Parkinson's disease Sister Bladder cancer Social History household members: spouse Smoking Status: Never smoker alcohol intake: never substance use type: does not use Discharge Assessment & Plan Assessment and Plan Assessment: 1. Multifocal pneumonia with history of bronchiectasis, present on admission and improved. 2. Acute hypoxic respiratory failure, present on admission and resolved. 3. Acute on chronic congestive heart failure with preserved ejection fraction, present on admission and improved. 4. Paroxysmal atrial fibrillation with RVR, present on admission and improved. 5. Hypertension, present on admission and stable. 6. History of mantle cell lymphoma, in remission. 7. Remote stroke Plan of Treatment: He will be on Zosyn for a total of 10 days' course. He will be on digoxin for 14 days, but this can likely be stopped altogether at that point. We will leave his azithromycin up to his PCP. This should be resumed after the antibiotic course is finished. [facility] is providing his cefepime Q 8 hours. Discharge Plan Discharge Plan Patient Disposition: Home Provider Discharge Comment: Stable for discharge home with close follow up with Shelia kennedy. Discharge orders & Medications Prescriptions: New trazodone 50 mg tablet 25 mg PO BEDTIME PRN (Reason: insomnia) Qty: 30 0RF Continued losartan 50 mg tablet 50 mg PO BID Qty: 180 1RF metoprolol succinate 50 mg tablet extended release 24 hr 25 mg PO BID Qty: 90 1RF amlodipine 5 mg tablet 5 mg PO DAILY Qty: 90 3RF (DME) Disabled Parking Permit See Rx Instructions .ROUTE .MEDSUPPLY Qty: 1 0RF Rx Instructions: Valid for 5 years apixaban 5 mg tablet 5 mg PO BID torsemide 20 mg tablet 20 mg PO DAILY PRN (Reason: Shortness Of Breath) coenzyme Q10 300 mg capsule 300 mg PO DAILY cholecalciferol (vitamin D3) 125 mcg (5,000 unit) capsule 125 mcg PO DAILY omega-3 fatty acids 1,000 mg capsule 1,000 mg PO DAILY Pepcid Complete 10-800-165 mg tablet,chewable 1 tab PO DAILY PRN (Reason: inde) fluticasone propionate [Flonase Allergy Relief] 50 mcg/actuation spray,suspension 2 spray intranasal DAILY Qty: 16 0RF Rx Instructions: administer into each nostril point away from midline Follow up/Referrals: Danielle Kennedy DO [Primary Care Provider] - Discharge Health Status Multidrug resistant organism: No MDRO Diet/Activity/Treatments Diet: Regular Visit Report/Discharge Packet Instructions: DI for Pneumonia -- Adult, DI for Aspiration Pneumonia, Trazodone Stand Alone Forms: Congestive Heart Failure, Patient Portal/API Discharge Data Primary Care Provider: Danielle Kennedy VTE Deep Vein Thrombosis/Pulmonary Embolism Present on Admission: No
[2024-01-25 11:00] VITALS: BP 118/66; PULSE 63; RESP 24; TEMP 37.1; O2SAT 93
--- NOTE | 2024-01-25 11:25 | CM.DPC ---
DCP Discharge Home with HH Per MD, pt is medically stable to discharge home today with HH and outpt f/u and no identified barriers to discharge. Per ST rizzo, recommending some changes to diet and MBS as an outpt to r/o silent aspiration. SW notified the team of pt's discharge and need for outpt f/u with his PCP Dr. Kennedy so they can get him scheduled for next week potentially. SW updated [facility] on pt discharge and F2F already scanned and HH orders complete. Per PT, pt was able to ambulate the halls last night with spouse and staff and spouse feels she can manage pt at home at this time. Plan: Patient to d/c home today via spouse POV and new [facility] referral made and completed and no further SW needs at this time. GAURAV Barr
== END 2024-01-25 13:25 | disposition home health service (06) | DRG 871 ==
LOC: ED 10:00 → AC 12:26
PROVIDERS: Hospitalist; Internal Medicine; Admitting Provider Internal Medicine; Emergency Provider Emergency Medicine; Family Provider Family Medicine; PCP Family Medicine; Referring Provider Emergency Medicine; Visit Provider Internal Medicine
DX: A41.9 Sepsis, unspecified organism (principal); I50.33 Acute on chronic diastolic (congestive) heart failure; J18.9 Pneumonia, unspecified organism; J96.01 Acute respiratory failure with hypoxia; C83.1A Mantle cell lymphoma, in remission; Z68.41 Body mass index [BMI] 40.0-44.9, adult; E80.6 Other disorders of bilirubin metabolism; R65.20 Severe sepsis without septic shock; I11.0 Hypertensive heart disease with heart failure; I48.0 Paroxysmal atrial fibrillation; E66.01 Morbid (severe) obesity due to excess calories; H10.9 Unspecified conjunctivitis; Z86.73 Personal history of transient ischemic attack (TIA), and cerebral infarction without residual deficits; Z95.0 Presence of cardiac pacemaker; Z95.3 Presence of xenogenic heart valve; Z79.01 Long term (current) use of anticoagulants; Z87.09 Personal history of other diseases of the respiratory system
CPT/HCPCS: 36415; 71275; 80048; 80053; 81001; 82550; 83605; 83690; 83735; 83880; 84145; 84484; 85025; 85610; 85730; 87040; 87633; 92610; 93005; 93306; 93970; 94640; 94762; 96365; 96367; 97162; 97530; 99284; 99285; A9270; J0696; J1940; Q9967

== ENCOUNTER → 2024-03-31 13:18 | Outpatient (CLI) | payer OTHER, SELFPAY ==
[2024-01-20 16:29] VITALS: BMI 42.6
[2024-03-31 14:02] LABS: Add Manual Diff / Slide Review NO; Basophils Absolute Auto 100 /uL (0-100); Basophils Percent Auto 0.9 % (0-2); Eosinophils Absolute Auto 300 /uL (0-450); Eosinophils Percent Auto 4.1 % (2-4); Hematocrit 48.9 % (41-53); Hemoglobin 16.7 g/dL (13.5-17.5); Lymphocytes Absolute Auto 800 /uL (1100-4500); Lymphocytes Percent Auto 12.1 % (25-40); Mean Corpuscular HGB Conc 34.2 % (30-36); Mean Corpuscular Hemoglobin 30.6 PG (26-34); Mean Corpuscular Volume 89.7 fL (80-100); Monocytes Absolute Auto 600 /uL (0-900); Monocytes Percent Auto 8.3 % (3-14); Neutrophils Absolute Auto 5100 /uL (1500-7000); Neutrophils Percent Auto 74.6 % (50-75); Platelet Count 233 X10^3/uL (150-400); Red Blood Cell Count 5.45 X10^6/uL (4.5-5.9); Red Cell Distribution Width 14.7 % (11.6-14.8); White Blood Cell Count 6.9 X10^3/uL (4.5-11.0)
[2024-03-31 14:18] LABS: Alanine Aminotransferase 22 IU/L (<50); Albumin 4.2 g/dL (3.5-5.0); Albumin Globulin Ratio 1.7 (1.0-2.8); Alkaline Phosphatase 75 U/L (38-126); Aspartate Aminotransferase 27 IU/L (17-59); Bilirubin Total 1.2 mg/dL (0.2-1.3); Blood Urea Nitrogen 14 mg/dL (9-20); Calcium 9.1 mg/dL (8.4-10.2); Carbon Dioxide 23 mmol/L (22-32); Chloride 106 mmol/L (98-107); Estimated Glomerular Filt Rate > 60 mL/min (>60); Globulin 2.5 g/dL (1.7-4.1); Glucose 114 mg/dL (80-110); HEMOLYSIS < 15 (0-50); Potassium 4.4 mmol/L (3.4-5.1); Sodium 137 mmol/L (137-145); Total Protein 6.7 g/dL (6.3-8.2)
[2024-03-31 14:31] LABS: NT-proBNP (BNP-Adult 18+) 2570 pg/mL (<450)
== END ==
LOC: LAB 13:19
PROVIDERS: Family Provider Family Medicine; PCP Family Medicine; Referring Provider Family Medicine; Visit Provider Family Medicine
DX: G56.01 Carpal tunnel syndrome, right upper limb (principal); I10 Essential (primary) hypertension; E78.5 Hyperlipidemia, unspecified; R73.9 Hyperglycemia, unspecified; C83.10 Mantle cell lymphoma, unspecified site; Z95.2 Presence of prosthetic heart valve
CPT/HCPCS: 36415; 80053; 83880; 85025

== ENCOUNTER → 2024-04-22 12:40 | Outpatient (CLI) | payer OTHER, SELFPAY ==
[2024-01-20 16:29] VITALS: BMI 42.6
[2024-04-22 13:35] LABS: Cholesterol 218 mg/dL (140-199); HDL Cholesterol 33 mg/dL (40-60); LDL Cholesterol Calculated 161 mg/dL (<100); Triglycerides 120 mg/dL (35-150)
== END ==
PROVIDERS: Family Provider Family Medicine; PCP Family Medicine; Referring Provider Family Medicine; Visit Provider Family Medicine
DX: E78.5 Hyperlipidemia, unspecified (principal); I73.9 Peripheral vascular disease, unspecified; I10 Essential (primary) hypertension
CPT/HCPCS: 36415; 80061

== ENCOUNTER → 2024-06-16 13:10 | Outpatient (CLI) | payer OTHER, SELFPAY ==
[2024-01-20 16:29] VITALS: BMI 42.6
[2024-06-16 14:19] LABS: BUN Creatinine Ratio 21.6 (6-22); Blood Urea Nitrogen 22 mg/dL (9-20); Calcium 9.2 mg/dL (8.4-10.2); Carbon Dioxide 25 mmol/L (22-32); Chloride 102 mmol/L (98-107); Estimated Glomerular Filt Rate > 60 mL/min (>60); Glucose 104 mg/dL (80-110); HEMOLYSIS 18 (0-50); Potassium 4.5 mmol/L (3.4-5.1); Sodium 137 mmol/L (137-145)
== END ==
PROVIDERS: Family Provider Family Medicine; PCP Family Medicine; Referring Provider Family Medicine; Visit Provider Family Medicine
DX: R73.9 Hyperglycemia, unspecified (principal); I10 Essential (primary) hypertension; E78.5 Hyperlipidemia, unspecified
CPT/HCPCS: 36415; 80048

== ENCOUNTER 2024-09-04 02:52 | Inpatient (IN) | payer OTHER, SELFPAY ==
[2024-01-20 16:29] VITALS: BMI 42.6
[2024-09-04] VITALS (37 sets, daily range): BP systolic 128–190; BP diastolic 69–99; PULSE 59–93; RESP 3–38; TEMP 36.1–37.1; O2SAT 92–95; BMI 42.8
--- NOTE | 2024-09-04 03:11 | DI.RAD.S_ITS ---
PROCEDURE: XR CHEST 1V INDICATIONS: Shortness of breath TECHNIQUE: One view of the chest was acquired. COMPARISON: [facility], CR, XR CHEST 1V, 05/16/2018, 19:43. FINDINGS: Surgical changes and devices: Left chest wall pacemaker leads are in the region of right atrium and right ventricle. Prosthetic aortic valve is seen. Lungs and pleura: Mild pulmonary vascular congestion. No definite focal infiltrate. Small left pleural effusion. No pneumothorax. Mediastinum: Mediastinal contours appear normal. Heart size is enlarged. Bones and chest wall: No suspicious bony lesions. Overlying soft tissues appear unremarkable. IMPRESSION: Cardiomegaly and mild congestion. Small left pleural effusion. No definite focal infiltrate. No pneumothorax. No discrepancies. Dictated by: Amadou Lemos M.D. on 09/04/2024 at 8:15 Approved by: Amadou Lemos M.D. on 09/04/2024 at 8:15
--- NOTE | 2024-09-04 03:19 | EKG_ITS ---
[id number] [address] Test Date: 2024-09-04 Pat Name: Pierce Voss Department: [facility] Room: Gender: Male Ssn/Ssbn Assistant Navigator: ROEL : 1950 Requested By: Order Number: [id number] Reading MD: Dayton Patel MD Measurements Intervals [place] Rate: 72 P: [place]: QRS: -75 QRSD: 194 T: 88 QT: 510 QTc: 558 Interpretive Statements Ventricular-paced rhythm with occasional premature ventricular complexes Electronically Signed On 09-04-2024 8:28:48 PDT by Dayton Patel MD
[2024-09-04] MEDS: ALBUTEROL/IPRATROPIUM 3 ML AMPUL INH (03:38)
[2024-09-04 03:56] LABS: Add Manual Diff / Slide Review NO; Hematocrit 44.4 % (41-53); Hemoglobin 14.9 g/dL (13.5-17.5); Lymphocytes Absolute Auto 300 /uL (1100-4500); Mean Corpuscular HGB Conc 33.6 % (30-36); Mean Corpuscular Hemoglobin 30.1 PG (26-34); Mean Corpuscular Volume 89.6 fL (80-100); Platelet Count 203 X10^3/uL (150-400)
[2024-09-04 03:57] LABS: INR 1.8 (0.9-1.3); Prothrombin Time 19.7 SECONDS (9.4-12.5)
[2024-09-04 04:02] LABS: Alanine Aminotransferase 25 IU/L (<50); Albumin 3.6 g/dL (3.5-5.0); Albumin Globulin Ratio 1.2 (1.0-2.8); Alkaline Phosphatase 66 U/L (38-126); Blood Urea Nitrogen 21 mg/dL (9-20); Calcium 8.5 mg/dL (8.4-10.2); Carbon Dioxide 25 mmol/L (22-32); Chloride 103 mmol/L (98-107); Estimated Glomerular Filt Rate > 60 mL/min (>60); Globulin 3.0 g/dL (1.7-4.1); Glucose 144 mg/dL (70-99); HEMOLYSIS < 15 (0-50); Potassium 4.0 mmol/L (3.4-5.1); Sodium 135 mmol/L (137-145); Total Protein 6.6 g/dL (6.3-8.2)
[2024-09-04 04:03] LABS: Lactate (Lactic Acid) 1.2 mmol/L (0.7-2.1)
--- NOTE | 2024-09-04 04:10 | ED.SOB ---
HPI - SOB/Dyspnea General Chief Complaint: Shortness of Breath/Dyspnea Stated Complaint: SOB, rapid breathing, coughing x7days Time Seen by Provider: 09/04/24 04:03 Source: patient Mode of arrival: Ambulatory Limitations: no limitations History of Present Illness HPI Narrative: 74-year-old male with history of TAVR, post TAVR pacemaker heart block, congestive heart failure, chart history atrial fibrillation, on Eliquis chronic anticoagulation, morbid obesity, pneumonia January 2024. Complains of 5 days duration of increasing shortness of breath and new productive cough, does not know the color of the sputum, does not believe that it tastes bloody. Lower extremity edema seems about the same, not recently increased. Denies current chest pain. Related Data Home Medications ?Medication ?Instructions ?Recorded ?Confirmed apixaban 5 mg tablet 5 mg PO BID 08/07/19 06/20/24 torsemide 20 mg tablet 20 mg PO DAILY PRN Shortness Of 09/13/21 06/20/24 Breath cholecalciferol (vitamin D3) 125 125 mcg PO DAILY 07/21/22 06/20/24 mcg (5,000 unit) capsule coenzyme Q10 300 mg capsule 300 mg PO DAILY 07/21/22 06/20/24 famotidine-Ca carb-mag hydrox 10 1 tab PO DAILY PRN inde 07/21/22 06/20/24 mg-800 mg-165 mg chewable tablet (Pepcid Complete) omega-3 fatty acids 1,000 mg 1,000 mg PO DAILY 07/21/22 06/20/24 capsule Previous Rx's ?Medication ?Instructions ?Recorded amlodipine 5 mg tablet 5 mg PO DAILY #90 tabs 12/14/23 Disabled Parking Permit #1 ea 01/04/24 metoprolol succinate 25 mg 25 mg PO BID #180 tabs 04/11/24 tablet,extended release 24 hr losartan 50 mg tablet 50 mg PO BID #180 tabs 08/23/24 Allergies Allergy/AdvReac Type Severity Reaction Status Date / Time No Known Drug Allergies Allergy Verified 09/04/24 03:07 Patient History Medical History (Updated 09/04/24 @ 06:10 by Sammy Enciso MD) History of melanoma Community acquired pneumonia Plantar fasciitis (10/02/10) Tinea pedis Onychomycosis Complete heart block Atrial fibrillation Osteopenia of femoral neck, bilateral (~12/2018) Mantle cell lymphoma (~10/2017) Squamous cell carcinoma (08/2019) CVA (cerebral vascular accident) (~11/2017) Pacemaker (~04/2018) Mild aortic stenosis by prior echocardiogram (08/13/11) Wears glasses Chronic back pain Mumps Measles Chicken pox Kidney stones (~1975) Skin cancer (~2004) TIA (transient ischemic attack) (~2009) Surgical History S/P TAVR (transcatheter aortic valve replacement) (~04/2018) Anesthesia History of tonsillectomy Status post cardiac pacemaker procedure (~05/14/18) S/P bronchoscopy with biopsy Family History Father Lung cancer Mother Parkinson's disease Sister Bladder cancer Social History household members: spouse Smoking Status: Never smoker alcohol intake: never substance use type: does not use Smoking Status: Never smoker alcohol intake frequency: 0-2 drinks per day Exam Narrative Exam Narrative: GENERAL: Well-developed patient, in mild distress. HEAD: Atraumatic. Normocephalic. EYES: Pupils equal round and reactive. Extraocular motions intact. No scleral icterus. No injection or drainage. ENT: Nose without bleeding, purulent drainage. Throat without erythema, tonsillar hypertrophy or exudate. Airway patent. NECK: Trachea midline. Non tender CARDIOVASCULAR: Regular rate and rhythm without murmurs, gallops, or rubs. RESPIRATORY: Speaking in full sentences, bibasilar crackles, slight wheeze. Left upper chest pacer site, without crepitance or redness or fluctuance. GASTROINTESTINAL: Abdomen soft, non-tender, nondistended. EXTREMITIES: Stockings bilateral but pitting edema mid forelegs 2+ BACK: Nontender without deformity or crepitance. No flank tenderness. NEURO: AOx3. Motor functions grossly nonfocal. SKIN: No rash or erythema of visible areas Initial Vital Signs Initial Vital Signs: Vital Signs Temperature 98.8 F 09/04/24 03:07 Pulse Rate 73 09/04/24 03:07 Respiratory Rate 26 H 09/04/24 03:07 Blood Pressure 145/74 H 09/04/24 03:07 Pulse Oximetry 94 07/06/25 03:07 Oxygen Delivery Method Room Air 09/04/24 03:07 Const General: cooperative Course Orders Ordered: Acetaminophen (Acetaminophen 325 Mg Tablet) 650 mg PO Q6H PRN PRN Reason: Fever/Mild Pain (1-3) Last Admin: 09/04/24 09:43 Dose: 650 mg Documented By: TC Amlodipine Besylate (Amlodipine 5 Mg Tablet) 5 mg PO DAILY [facility] Last Admin: 09/04/24 08:56 Dose: 5 mg Documented By: Apixaban (Apixaban 5 Mg Tablet) 5 mg PO BID [facility] Last Admin: 09/04/24 08:56 Dose: 5 mg Documented By: Dexamethasone (Dexamethasone 10 Mg/Ml Vial) 6 mg IV DAILY [facility] Last Admin: 09/04/24 08:59 Dose: 6 mg Documented By: Ceftriaxone Sodium 2,000 mg/ (Sodium Chloride) 100 mls @ 200 mls/hr IV Q24H [facility] Last Infusion: 09/04/24 09:34 Dose: Infused Documented By: Admin: 09/04/24 09:04 Dose: 200 mls/hr Documented By: Azithromycin 500 mg/ Dextrose 250 mls @ 250 mls/hr IV Q24H [facility] Stop: 09/06/24 08:16 Last Infusion: 09/04/24 10:40 Dose: Infused Documented By: Admin: 09/04/24 09:34 Dose: 250 mls/hr Documented By: TC Losartan Potassium (Losartan 50 Mg Tablet) 50 mg PO BID [facility] Last Admin: 09/04/24 10:15 Dose: 50 mg Documented By: TC Metoprolol Succinate (Metoprolol Er 25 Mg Tablet) 25 mg PO BID [facility] Last Admin: 09/04/24 08:56 Dose: 25 mg Documented By: Naloxone HCl (Naloxone 0.4 Mg/Ml Vial) 0.2 mg IV Q2MIN PRN PRN Reason: Opiate Reversal Vitamin D (Cholecalciferol (Vitamin D3) 5,000 Unit Tablet) 5,000 unit PO DAILY [facility] Last Admin: 09/04/24 10:16 Dose: 5,000 unit Documented By: TC Discontinued Medications Albuterol/Ipratropium (Albuterol/Ipratropium 3 Ml Ampul) 3 ml INH NOW ONE Stop: 09/04/24 03:36 Last Admin: 09/04/24 03:38 Dose: 3 ml Documented By: Aspirin (Aspirin 81 Mg Chew Tab) 324 mg PO NOW ONE Stop: 09/04/24 04:24 Last Admin: 09/04/24 05:09 Dose: 324 mg Documented By: PAYTON Doxycycline Hyclate (Doxycycline Hyclate 100 Mg Tablet) 100 mg PO NOW ONE Stop: 09/04/24 04:25 Last Admin: 09/04/24 05:09 Dose: 100 mg Documented By: PAYTON Furosemide (Furosemide 40 Mg/4 Ml Vial) 40 mg IV NOW ONE Stop: 09/04/24 04:16 Last Admin: 09/04/24 04:35 Dose: 40 mg Documented By: PAYTON Ceftriaxone Sodium 1,000 mg/ (Sodium Chloride) 100 mls @ 200 mls/hr IV NOW ONE Stop: 09/04/24 04:24 Last Infusion: 09/04/24 05:48 Dose: Infused Documented By: Admin: 09/04/24 05:08 Dose: 200 mls/hr Documented By: PAYTON Nitroglycerin (Nitroglycerin Oint 1 Inch/Gm Oint...G.) 1 inch TOP NOW ONE Stop: 09/04/24 04:16 Last Admin: 09/04/24 04:35 Dose: 1 inch Documented By: PAYTON Non-Formulary Medication (Coenzyme Q10) 300 mg PO DAILY [place] Vital Signs Vital signs: Vital Signs - 8 hr 09/04/24 08:01 Pulse Oximetry 93 MDM - SOB/Dyspnea Lab Data Attestation: I reviewed the patient's lab results. Lab results narrative: White blood cell count 6900, hemoglobin 14.9, platelets adequate. Glucose 144. BUN 20 with creatinine 1.06, serum CO2 and potassium normal, slight decreased sodium 135. PT INR 1.8. Liver functions normal. Troponin 0.100 indeterminate but upper range. Lactate 1.2 normal. BNP 4240. 09/04/24 03:43 09/04/24 03:43 Labs: Lab Results 09/04/24 09/04/24 Range/Units 03:43 05:45 WBC 6.9 (4.5-11.0) X10^3/uL RBC 4.96 (4.5-5.9) X10^6/uL Hgb 14.9 (13.5-17.5) g/dL Hct 44.4 (41-53) % MCV 89.6 (80-100) fL MCH 30.1 (26-34) PG MCHC 33.6 (30-36) % RDW 15.4 H (11.6-14.8) % Plt Count 203 (150-400) X10^3/uL Neut % (Auto) 84.6 H (50-75) % Lymph % (Auto) 4.0 L (25-40) % [place] % (Auto) 10.3 (3-14) % Eos % (Auto) 0.7 L (2-4) % Baso % (Auto) 0.4 (0-2) % Neut # (Auto) 5800 (9641-1421) /uL Lymph # (Auto) 300 L (9155-5190) /uL [place] # (Auto) 700 (0-900) /uL Eos # (Auto) 0 (0-450) /uL Baso # (Auto) 0 (0-100) /uL PT 19.7 H (9.4-12.5) SECONDS INR 1.8 H (0.9-1.3) Sodium 135 L (137-145) mmol/L Potassium 4.0 (3.4-5.1) mmol/L Chloride 103 (98-107) mmol/L Carbon Dioxide 25 (22-32) mmol/L BUN 21 H (9-20) mg/dL Creatinine 1.06 (0.66-1.25) mg/dL Estimated GFR > 60 (>60) mL/min BUN/Creatinine Ratio 19.8 (6-22) Glucose 144 H (70-99) mg/dL Lactate 1.2 (0.7-2.1) mmol/L Calcium 8.5 (8.4-10.2) mg/dL Total Bilirubin 1.3 (0.2-1.3) mg/dL AST 36 (17-59) IU/L ALT 25 (<50) IU/L Alkaline Phosphatase 66 (38-126) U/L Troponin I 0.100 H 0.091 H (0.01-0.034) ng/mL NT-Pro-B Natriuret Pep 4240 H (<450) pg/mL Total Protein 6.6 (6.3-8.2) g/dL Albumin 3.6 (3.5-5.0) g/dL Globulin 3.0 (1.7-4.1) g/dL Albumin/Globulin Ratio 1.2 (1.0-2.8) SARS-CoV-2 (PCR) Positive H (Negative) Influenza A (RT-PCR) Flu a negative (NEGATIVE) Influenza B (RT-PCR) Flu b negative (NEGATIVE) RSV (PCR) Negative (Negative) ECG Data Attestation: I personally reviewed and interpreted this ECG as follows: Interpretation: 0319, ventricular paced rhythm with occasional PVCs. Ventricular rate 72. QRS 194, QTC 558. MDM Narrative Medical decision making narrative: 74-year-old male with history of TAVR, pacer, AFib on chronic Eliquis anticoagulation, 5 days duration cough with increasing shortness of breath, bilateral lower extremity but seems similar to prior. Crackles bibasilar. Some increased work of breathing, but speaks in full sentences, no oxygen requirement, with room air sat 91%. EKG, chest x-ray labs pending. Albuterol trial, no significant improvement in symptoms. EKG, paced rhythm noted. Chest x-ray. Impression: ?Left pleural effusion and basilar atelectasis and/or pneumonia. Cardiomegaly. Cannot exclude slight perihilar edema.? See radiology report. Blood cultures, IV ceftriaxone, oral doxycycline. Lab data: White blood cell count 6900, hemoglobin 14.9, platelets adequate. Glucose 144. BUN 20 with creatinine 1.06, serum CO2 and potassium normal, slight decreased sodium 135. PT INR 1.8. Liver functions normal. Troponin 0.100 indeterminate but upper range. Lactate 1.2 normal. BNP 4240. Topical nitrate, IV Lasix. Oral aspirin. COVID positive, RSV negative, flu negative. Respiratory isolation precautions. Interval repeat troponin 0.09 also high indeterminate, but decreasing. Suspect demand ischemia, type 2 cardiac injury. Likely admit here. Will consult Cardiology. 644, case discussed with cardiology Dr. Poon, who feels patient can be managed here. Will contact morning hospitalist after change of shift. 744, case discussed with hospitalist Dr. Goldman who accepts patient for admission. Critical Care Time Critical Care Time Critical Care Time: Yes Total Critical Care Time: 35 Attestation: The high probability of a clinically significant, sudden or life threatening deterioration of the [cardiopulmonary] system(s) required my full and direct attention, intervention and personal management. The aggregate critical care time was [35] minutes. This time is in addition to time spent performing reported procedures but includes the following: [x] Data Review and interpretation [x] Patient assessment and monitoring of vital signs [x] Documentation [x] Medication orders and management Discharge Plan Departure Patient Disposition: Admitted As Inpatient Clinical Impression: Congestive heart failure, Pneumonia, COVID-19 Admit Date/Time: 09/04/24 08:05 Admit Provider: Josie Goldman
[2024-09-04 04:14] LABS: NT-proBNP (BNP-Adult 18+) 4240 pg/mL (<450); Troponin I 0.100 ng/mL (0.01-0.034)
[2024-09-04 04:30] LABS: Influenza A - CEPHEID Flu A NEGATIVE (NEGATIVE); Influenza B - CEPHEID Flu B NEGATIVE (NEGATIVE)
[2024-09-04 04:35] LABS: COVID-19 CEPHEID 4-PLEX PCR POSITIVE (Negative)
[2024-09-04] MEDS: FUROSEMIDE 40 MG/4 ML VIAL IV (04:35)
[2024-09-04] MEDS: NITROGLYCERIN OINT 1 INCH/GM OINT...G. TOP (04:35)
[2024-09-04] MEDS: DOXYCYCLINE HYCLATE 100 MG TABLET PO (05:09)
[2024-09-04] MEDS: ASPIRIN 81 MG CHEW TAB 324 MG PO (05:09)
[2024-09-04 06:16] LABS: Troponin I 0.091 ng/mL (0.01-0.034)
--- NOTE | 2024-09-04 08:18 | PM.HP.1 ---
History of Present Illness History of Present Illness Date Patient Seen: 09/04/24 Chief complaint: SOB, rapid breathing, coughing x7days Narrative: This is a 74-year-old male with heart block status post pacemaker, atrial fibrillation, mantle cell lymphoma, previous CVA, previous pneumonia, melanoma, TAVR in 2020 and no history of emphysema or asthma who presents with 5 days of coughing and shortness of breath. His chest x-ray shows a possible left pleural effusion/infiltrate with cardiomegaly. The troponin is 0.1 and 0.09. The BNP is 4240. The INR is 1.8. The white blood count is 6.9 and the COVID test is positive. His chronic post lymphoma treatment lymphedema is slightly worse on the left side. [facility] Medical History (Updated 09/04/24 @ 16:28 by Josie Goldman MD) Lymphedema History of melanoma Community acquired pneumonia Plantar fasciitis (10/02/10) Tinea pedis Onychomycosis Complete heart block Atrial fibrillation Osteopenia of femoral neck, bilateral (~12/2018) Mantle cell lymphoma (~10/2017) Squamous cell carcinoma (08/2019) CVA (cerebral vascular accident) (~11/2017) Pacemaker (~04/2018) Mild aortic stenosis by prior echocardiogram (08/13/11) Wears glasses Chronic back pain Mumps Measles Chicken pox Kidney stones (~1975) Skin cancer (~2004) TIA (transient ischemic attack) (~2009) Surgical History S/P TAVR (transcatheter aortic valve replacement) (~04/2018) Anesthesia History of tonsillectomy Status post cardiac pacemaker procedure (~05/14/18) S/P bronchoscopy with biopsy Family History Father Lung cancer Mother Parkinson's disease Sister Bladder cancer Social History household members: spouse Smoking Status: Never smoker alcohol intake: never substance use type: does not use Meds Home Medications and Allergies Home Medications ?Medication ?Instructions ?Recorded ?Confirmed ?Type apixaban 5 mg tablet 5 mg PO BID 08/07/19 09/04/24 History torsemide 20 mg tablet 20 mg PO DAILY PRN Shortness Of 09/13/21 09/04/24 History Breath cholecalciferol (vitamin D3) 125 125 mcg PO DAILY 07/21/22 09/04/24 History mcg (5,000 unit) capsule coenzyme Q10 300 mg capsule 300 mg PO DAILY 07/21/22 09/04/24 History famotidine-Ca carb-mag hydrox 10 1 tab PO DAILY PRN inde 07/21/22 09/04/24 History mg-800 mg-165 mg chewable tablet (Pepcid Complete) omega-3 fatty acids 1,000 mg 1,000 mg PO DAILY 07/21/22 09/04/24 History capsule amlodipine 5 mg tablet 5 mg PO DAILY #90 tabs 12/14/23 09/04/24 Rx Disabled Parking Permit #1 ea 01/04/24 09/04/24 Rx metoprolol succinate 25 mg 25 mg PO BID #180 tabs 04/11/24 09/04/24 Rx tablet,extended release 24 hr losartan 50 mg tablet 50 mg PO BID #180 tabs 08/23/24 09/04/24 Rx verapamil 120 mg tablet,extended 120 mg PO Q12H 09/04/24 09/04/24 History release Allergies Allergy/AdvReac Type Severity Reaction Status Date / Time No Known Drug Allergies Allergy Verified 09/04/24 03:07 Review of Systems Review of Systems Narrative: Positive for wheezing, shortness of breath, coughing and exposure to family members with similar URI symptoms. Negative for fevers, chills, sweats, nausea, vomiting, abdominal pain, bleeding, rashes, seizures, sore throat, headache, new allergies. Exam Vital Signs (past 8 hours): - 09/04/24 03:07 09/04/24 03:27 09/04/24 03:30 Temperature 98.8 F Pulse Rate 73 72 69 Respiratory Rate 26 H 32 H 38 H Blood Pressure 145/74 H Pulse Oximetry 94 93 93 Oxygen Delivery Method Room Air Room Air Room Air 09/04/24 03:30 09/04/24 03:39 09/04/24 04:00 Temperature Pulse Rate 69 62 Respiratory Rate 31 H 29 H Blood Pressure 159/92 H Pulse Oximetry 93 92 Oxygen Delivery Method Room Air 09/04/24 04:01 09/04/24 04:01 09/04/24 04:32 Temperature Pulse Rate 73 83 Respiratory Rate 32 H Blood Pressure 145/76 H Pulse Oximetry 92 95 Oxygen Delivery Method Room Air Room Air 09/04/24 05:00 09/04/24 05:01 09/04/24 05:01 Temperature Pulse Rate 71 65 Respiratory Rate 34 H 33 H Blood Pressure 175/86 H Pulse Oximetry 93 93 Oxygen Delivery Method Room Air Room Air 09/04/24 05:30 09/04/24 05:31 09/04/24 05:31 Temperature Pulse Rate 93 H 91 H Respiratory Rate 32 H 36 H Blood Pressure 190/84 H Pulse Oximetry 94 93 Oxygen Delivery Method 09/04/24 06:00 09/04/24 06:01 09/04/24 06:01 Temperature Pulse Rate 76 81 Respiratory Rate 33 H 27 H Blood Pressure 130/71 Pulse Oximetry 94 93 Oxygen Delivery Method 09/04/24 06:30 09/04/24 06:30 09/04/24 07:00 Temperature Pulse Rate 74 80 Respiratory Rate 30 H 34 H Blood Pressure 136/87 Pulse Oximetry 94 93 Oxygen Delivery Method 09/04/24 07:01 09/04/24 07:01 09/04/24 07:30 Temperature Pulse Rate 72 68 Respiratory Rate 22 Blood Pressure 128/82 Pulse Oximetry 93 93 Oxygen Delivery Method 09/04/24 07:31 09/04/24 07:31 09/04/24 08:01 Temperature Pulse Rate 59 L Respiratory Rate 24 Blood Pressure 151/82 H Pulse Oximetry 93 93 Oxygen Delivery Method Room Air Oxygen Delivery Method Room Air Narrative Exam Narrative: Alert and oriented x3. Moderate distress from ongoing shortness breast and coughing. Pupils are equally round and reactive to light and accommodation Extraocular muscles test intact Sclerae pink nonicteric There is no thyromegaly JVD is less than 6 cm No carotid bruits are heard No lymph nodes are felt head, neck, supraclavicular area. Heart is regular rate and rhythm without murmur Lungs have bibasilar crackles and diffuse wheezes. Extremities have no ankle edema Abdomen is very obese, nontender, no organomegaly. Skin has no rash Neurologic exam: Cranial nerves 2-12 test intact, motor function 5/5 throughout, there is no tremor. Deep tendon reflexes are symmetric and normal. Objective Labs 09/04/24 03:43 09/04/24 03:43 Labs: Laboratory Results - last 24 hr 09/04/24 09/04/24 03:43 05:45 WBC 6.9 RBC 4.96 Hgb 14.9 Hct 44.4 MCV 89.6 MCH 30.1 MCHC 33.6 RDW 15.4 H Plt Count 203 Neut % (Auto) 84.6 H Lymph % (Auto) 4.0 L [place] % (Auto) 10.3 Eos % (Auto) 0.7 L Baso % (Auto) 0.4 Neut # (Auto) 5800 Lymph # (Auto) 300 L [place] # (Auto) 700 Eos # (Auto) 0 Baso # (Auto) 0 PT 19.7 H INR 1.8 H Sodium 135 L Potassium 4.0 Chloride 103 Carbon Dioxide 25 BUN 21 H Creatinine 1.06 Estimated GFR > 60 BUN/Creatinine Ratio 19.8 Glucose 144 H Lactate 1.2 Calcium 8.5 Total Bilirubin 1.3 AST 36 ALT 25 Alkaline Phosphatase 66 Troponin I 0.100 H 0.091 H NT-Pro-B Natriuret Pep 4240 H Total Protein 6.6 Albumin 3.6 Globulin 3.0 Albumin/Globulin Ratio 1.2 SARS-CoV-2 (PCR) Positive H Influenza A (RT-PCR) Flu a negative Influenza B (RT-PCR) Flu b negative RSV (PCR) Negative Assessment & Plan Assessment & Plan narrative: This is a 74-year-old male with heart block status post pacemaker, atrial fibrillation, mantle cell lymphoma, previous CVA, previous pneumonia, melanoma, TAVR in 2020 and no history of emphysema or asthma who presents with 5 days of coughing and shortness of breath. His chest x-ray shows a possible left pleural effusion/infiltrate. Covid Pneumonia, present on admission, active -heavy wheezing on exam with no history of asthma or COPD. -dexamethasone 6 mg daily for 10 days. -patient was 90% on room air on presentation. Holding off on remdesivir at this point. -oxygen as needed. -ceftriaxone for possible bacterial pneumonia. Acute bronchospasm, present on admission, active. -secondary to acute viral pneumonia -dexamethasone and albuterol CHF, present on admission, active -continue torsemide, losartan and metoprolol. Atrial Fibrillation/CHB/Pacer, present on admission, chronic -continue verapamil, amlodipine, Eliquis and metoprolol. Left arm and leg chronic lymphedema, present on admission, chronic -continue compression stocking and torsemide. Hypertension, Present on admission, chronic -continue amlodipine, losartan, metoprolol and verapamil. Plan to clarify whether he is actually taking 2 calcium channel blockers? Eliquis for DVT prevention His is his backup decision maker. Time-Based Coding :: [TOTAL MINUTES] spent with patient and on the chart (including review of chart, obtaining history, exam, reviewing outside data, placing orders, documenting exam and treatment plan, and counseling patient) on [DATE].
[2024-09-04] MEDS: APIXABAN 5 MG TABLET PO ×2 (08:56→20:52)
[2024-09-04] MEDS: METOPROLOL ER 25 MG TABLET PO ×2 (08:56→20:53)
[2024-09-04] MEDS: AMLODIPINE 5 MG TABLET PO (08:56)
[2024-09-04] MEDS: DEXAMETHASONE 10 MG/ML VIAL 6 MG IV (08:59)
[2024-09-04] MEDS: cefTRIAXone 2,000 MG in SODIUM CHLORIDE 0.9% 100 ML 200 MG IV (09:04)
[2024-09-04] MEDS: AZITHROMYCIN 500 MG in DEXTROSE 5% IN WATER 250 ML 250 MG IV (09:34)
--- NOTE | 2024-09-04 09:40 | PC.NURSE ---
Per Dr. Goldman, remove nitropaste. Tylenol PRN ordered. See MAR.
[2024-09-04] MEDS: ACETAMINOPHEN 325 MG TABLET 650 MG PO (09:43)
[2024-09-04] MEDS: LOSARTAN 50 MG TABLET PO ×2 (10:15→20:53)
[2024-09-04] MEDS: CHOLECALCIFEROL (VITAMIN D3) 5,000 UNIT TABLET 5000 UNIT PO (10:16)
[2024-09-04] MEDS: VERAPAMIL 80 MG TABLET PO (20:52)
[2024-09-04] MEDS: ALBUTEROL 2.5 MG/3 ML NEB (ADULT) INH (21:08)
[2024-09-04] MEDS: BENZOCAINE/MENTHOL 1 LOZ PKT 1 EACH PO (21:12)
[2024-09-05] VITALS (12 sets, daily range): BP systolic 140–183; BP diastolic 76–104; PULSE 60–86; RESP 16–24; TEMP 36.1–36.9; O2SAT 93–96
[2024-09-05 05:23] LABS: Add Manual Diff / Slide Review NO; Hematocrit 49.3 % (41-53); Hemoglobin 17.0 g/dL (13.5-17.5); Lymphocytes Absolute Auto 400 /uL (1100-4500); Mean Corpuscular HGB Conc 34.4 % (30-36); Mean Corpuscular Hemoglobin 30.7 PG (26-34); Mean Corpuscular Volume 89.2 fL (80-100); Platelet Count 239 X10^3/uL (150-400)
[2024-09-05 05:44] LABS: Alanine Aminotransferase 30 IU/L (<50); Albumin 4.2 g/dL (3.5-5.0); Albumin Globulin Ratio 1.2 (1.0-2.8); Alkaline Phosphatase 72 U/L (38-126); Blood Urea Nitrogen 23 mg/dL (9-20); Calcium 8.7 mg/dL (8.4-10.2); Carbon Dioxide 27 mmol/L (22-32); Chloride 103 mmol/L (98-107); Estimated Glomerular Filt Rate > 60 mL/min (>60); Globulin 3.5 g/dL (1.7-4.1); Glucose 129 mg/dL (70-99); HEMOLYSIS < 15 (0-50); Potassium 4.4 mmol/L (3.4-5.1); Sodium 138 mmol/L (137-145); Total Protein 7.7 g/dL (6.3-8.2)
--- NOTE | 2024-09-05 07:49 | PM.PN.1 ---
Subjective Subjective Date Patient Seen: 09/05/24 Interval history: He says that he feels much better. The blood pressure remains 183/104. The CBC and BMP are normal. The wheezing has lightened up on exam. Exam Vital Signs (past 8 hours): - 09/05/24 00:26 09/05/24 04:47 Pulse Rate 60 63 Respiratory Rate 20 21 Blood Pressure 155/76 H 183/104 H Pulse Oximetry 94 95 Oxygen Delivery Method Room Air Narrative Exam Narrative: Alert and oriented x3. No apparent distress. Heart is regular rate and rhythm without murmur lungs have mild wheezing bilaterally There is trace left-sided upper and lower extremity edema. This is chronic. Objective Labs 09/05/24 04:40 09/05/24 04:40 Labs: Laboratory Results - last 24 hr 09/05/24 04:40 WBC 6.6 RBC 5.53 Hgb 17.0 Hct 49.3 MCV 89.2 MCH 30.7 MCHC 34.4 RDW 15.2 H Plt Count 239 Neut % (Auto) 80.9 H Lymph % (Auto) 6.1 L [place] % (Auto) 12.8 Eos % (Auto) 0.0 L Baso % (Auto) 0.2 Neut # (Auto) 5300 Lymph # (Auto) 400 L [place] # (Auto) 800 Eos # (Auto) 0 Baso # (Auto) 0 Sodium 138 Potassium 4.4 Chloride 103 Carbon Dioxide 27 BUN 23 H Creatinine 0.96 Estimated GFR > 60 BUN/Creatinine Ratio 24.0 H Glucose 129 H Calcium 8.7 Total Bilirubin 0.9 AST 43 ALT 30 Alkaline Phosphatase 72 Total Protein 7.7 Albumin 4.2 Globulin 3.5 Albumin/Globulin Ratio 1.2 [facility] Medical History (Updated 09/04/24 @ 16:28 by Josie Goldman MD) Lymphedema History of melanoma Community acquired pneumonia Plantar fasciitis (10/02/10) Tinea pedis Onychomycosis Complete heart block Atrial fibrillation Osteopenia of femoral neck, bilateral (~12/2018) Mantle cell lymphoma (~10/2017) Squamous cell carcinoma (08/2019) CVA (cerebral vascular accident) (~11/2017) Pacemaker (~04/2018) Mild aortic stenosis by prior echocardiogram (08/13/11) Wears glasses Chronic back pain Mumps Measles Chicken pox Kidney stones (~1975) Skin cancer (~2004) TIA (transient ischemic attack) (~2009) Surgical History S/P TAVR (transcatheter aortic valve replacement) (~04/2018) Anesthesia History of tonsillectomy Status post cardiac pacemaker procedure (~05/14/18) S/P bronchoscopy with biopsy Family History Father Lung cancer Mother Parkinson's disease Sister Bladder cancer Social History household members: spouse Smoking Status: Never smoker alcohol intake: never substance use type: does not use Assessment & Plan Assessment & Plan narrative: This is a 74-year-old male with heart block status post pacemaker, atrial fibrillation, mantle cell lymphoma, previous CVA, previous pneumonia, melanoma, TAVR in 2020 and no history of emphysema or asthma who presents with 5 days of coughing and shortness of breath. His chest x-ray shows a possible left pleural effusion/infiltrate. Covid Pneumonia, present on admission, active -heavy wheezing on exam with no history of asthma or COPD. -dexamethasone 6 mg daily for 10 days. -patient was 90% on room air on presentation. Holding off on remdesivir at this point. -oxygen as needed. -ceftriaxone for possible bacterial pneumonia. Acute bronchospasm, present on admission, active. -secondary to acute viral pneumonia -dexamethasone and albuterol CHF, present on admission, active -continue torsemide, losartan and metoprolol. Atrial Fibrillation/CHB/Pacer, present on admission, chronic -continue verapamil, amlodipine, Eliquis and metoprolol. Left arm and leg chronic lymphedema, present on admission, chronic -continue compression stocking and torsemide. Hypertension, Present on admission, chronic -continue amlodipine, losartan, metoprolol and verapamil. Plan to clarify whether he is actually taking 2 calcium channel blockers? Discharge planning: Likely to return home on 09/06 or . Eliquis for DVT prevention His is his backup decision maker. Time-Based Coding :: [TOTAL MINUTES] spent with patient and on the chart (including review of chart, obtaining history, exam, reviewing outside data, placing orders, documenting exam and treatment plan, and counseling patient) on [DATE].
[2024-09-05] MEDS: AMLODIPINE 5 MG TABLET PO (08:27)
[2024-09-05] MEDS: cefTRIAXone 2,000 MG in SODIUM CHLORIDE 0.9% 100 ML 200 MG IV (08:27)
[2024-09-05] MEDS: APIXABAN 5 MG TABLET PO ×2 (08:27→20:34)
[2024-09-05] MEDS: VERAPAMIL 80 MG TABLET PO ×2 (08:28→17:05)
[2024-09-05] MEDS: LOSARTAN 50 MG TABLET PO ×2 (08:28→20:34)
[2024-09-05] MEDS: CHOLECALCIFEROL (VITAMIN D3) 5,000 UNIT TABLET 5000 UNIT PO (08:28)
[2024-09-05] MEDS: METOPROLOL ER 25 MG TABLET PO ×2 (08:28→20:33)
[2024-09-05] MEDS: DEXAMETHASONE 10 MG/ML VIAL 6 MG IV (08:28)
[2024-09-05] MEDS: ALBUTEROL 2.5 MG/3 ML NEB (ADULT) INH ×3 (08:51→19:51)
[2024-09-05] MEDS: AZITHROMYCIN 500 MG in DEXTROSE 5% IN WATER 250 ML 250 MG IV (09:35)
--- NOTE | 2024-09-05 11:51 | CM.DANOTE ---
Patient is a 74 yo male who was admitted on 09/04/24 for SOB/PE. Pt has [facility] for insurance and his PCP is Dr. Danielle Kennedy. EMR was reviewed. Per MD, pt with a hx of pacemaker and AFIB and prior CVA with some residual weakness and admitted for COVID+/Pneumonia and getting IV Abx and currently on room air. Anticipate another 2 days before discharge. SW met bedside briefly with pt and explained role and he confirms he lives in [place] with his and is mostly independent with ADLs at baseline and uses a cane for ambulation. Pt confirms that he has a hx of GLFs recently and has had times that he has had to crawl up this stairs to get into the house when he was feeling weak. Pt states he is feeling better than at admission and remains on room air at this time. Preference is home when stable with his and would be agreeable to HH if needed but denies any hx of SNF. Pt last admitted in Jan 2024 for pneumonia and was able to d/c home with spouse and [facility] referral. PT ordered and pending due to pt's GLFs and weakness. Plan: SW to follow closely for PT eval and recommendations to confirm safe plan of home with spouse and r/o HH and any further identified discharge planning needs. Notify TCM team at d/c for outpt f/u with PCP as his provider is Dr. Kennedy at [facility]. GAURAV Barr Discharge Planning/Care Management CM Discharge Assessment Start: 09/04/24 11:48 Freq: Status: Active Protocol: Document 09/05/24 11:49 BF (Rec: 09/05/24 11:50 BF [id number]) Discharge Planning Assessment Assigned Discharge GAURAV Choi Batch Blender DPOA/Assigned spouse Christine Designee Name Contact Information [phone] Advance Directives? No Advance Directives No on File History Provided By Patient,Significant Other,Medical Record Has Patient been No admitted in last 30 days? Comment last admit in Jan 2024 for PNA and went home with [facility] Prior Living House Arrangements Household Members spouse Type of Drives own vehicle transporation used prior to admit Independent with ADL Yes 's Is patient alert and Yes oriented? Needs Assistance Home Chores / Shopping With Caregiver for No Another DME Already Rented / Cane Owned Patient/Family Home with Home Health Preference Comment Pending PT eval and recommendations Barriers to No Discharge Discharge Plan Home Transportation Likely spouse or Dtr Arrangement Additional Comment Pending PT eval and recommendations Whiteboard Updated Yes in Patient Room with name and ext. # of Dishwasher Busser Review Status In Process Please Provide Date 09/05/24 Initial DC Assessment Was Performed Next Review Type Continued Stay Review
--- NOTE | 2024-09-05 15:23 | PT.IIE ---
Current Diagnoses COVID-19 (09/04/24) Surgical History (Last Reviewed 01/21/24 @ 07:23 by Deshawn Ariza MD) Anesthesia History of tonsillectomy S/P bronchoscopy with biopsy S/P TAVR (transcatheter aortic valve replacement) (~04/2018) Status post cardiac pacemaker procedure (~05/14/18) Medical History (Last Updated 09/04/24 @ 16:28 by Josie Goldman MD) Atrial fibrillation Chicken pox Chronic back pain Community acquired pneumonia Complete heart block CVA (cerebral vascular accident) (~11/2017) History of melanoma Kidney stones (~1975) Lymphedema Mantle cell lymphoma (~10/2017) Measles Mild aortic stenosis by prior echocardiogram (08/13/11) Mumps Onychomycosis Osteopenia of femoral neck, bilateral (~12/2018) Pacemaker (~04/2018) Plantar fasciitis (10/02/10) Skin cancer (~2004) Squamous cell carcinoma (08/2019) TIA (transient ischemic attack) (~2009) Tinea pedis Wears glasses Physical Therapy Inpatient Evaluation/Re-Eval M1 PT/OT-IP Prior Functional Status Start: 09/05/24 15:12 Freq: NEEDED Status: Active Protocol: Document 09/05/24 14:56 MB (Rec: 09/05/24 15:22 MB Desktop) Medical Review Prior Functional Status Medical History Yes Reviewed Communication Unsure baseline diet, communicates needs Mobility and Gait Mod I with QC in right hand d/t left sided weakness from old stroke, one fall on steps a while ago, had to crawl up the steps recently d/t weakness from COVID Activities of Daily Mod I, also drives, no recent PT Living and IADL's Social History Household Members spouse Living Arrangements House Number of Floors ( Two Floors Floors) Number of Stairs To 13 steps with right rail to room, a couple of steps and Enter/Railing? left rail to enter home and freezer on the right Home Environment Standard Height Toilet,Tub/Shower Home Equipment Front Wheel Walker,Quad Cane,Hand Held Shower Employment Status Retired M2 PT-IP Current Condition Start: 09/05/24 15:12 Freq: NEEDED Status: Active Protocol: Document 09/05/24 14:56 MB (Rec: 09/05/24 15:22 MB Desktop) Physical Therapy Current Condition Current Condition Evaluation Date 09/05/24 Treatment Diagnosis COVID M3 PT-IP Subjective Start: 09/05/24 15:12 Freq: NEEDED Status: Active Protocol: Document 09/05/24 14:56 MB (Rec: 09/05/24 15:22 MB Desktop) Subjective Physical Therapy Visit Type Type Initial Evaluation Visit Start Time 14:56 Visit Stop Time 13:10 Number of DENTAL RESIDENT Visits 0 Physical Therapy Visit Comments Patient Comments Pt reports he is tired after walking in hallways with METAL SORTER Therapy Pain Assessment Pain When Pain Assessed At Rest Pain Present Pain Present Denied Pain M4 PT-IP Mobility and Gait Start: 09/05/24 15:12 Freq: NEEDED Status: Active Protocol: Document 09/05/24 14:56 MB (Rec: 09/05/24 15:22 MB Desktop) PT-Bed Mobility Assessment Supine to Sit Supine to Sit Standby Assistance,Head of Bed Elevated,Bedrails Scooting Scooting to Edge of Standby Assistance Bed PT-Transfer Assessment Sit to and From Stand Sit to and from Standby Assistance Stand Equipment Transfer Assistive Gait Belt,Small Based Quad Cane Device Orthotic/Prosthetic No Devices or Brace: Transfers Transfer Destination Bed Transfer Technique Ambulation Transfer Ability Level of Assist Standby Assistance Gait Assessment Gait Gait Assistance Standby Assistance Required: Distance (Feet) 40 Assistive Devices Assistive Device Gait Belt,Small Based Quad Cane Gait Deviations General Gait Pattern Decreased Stride Length,Lateral Trunk Lean,Step-to Gait ,Wide Based Gait Factors Limiting Gait Function Factors Limiting Abnormal Tonal Influences,Decreased Activity Tolerance, Gait Function Decreased Strength,Limited Range of Motion,Poor Balance Comments Gait Comments Wide ALBERT and hip hike left leg with decreased heel strike and toe push off with stepping, increased Trendelenburg with gait pattern PT-Balance Assessment Sitting Balance and Reactions Static Sitting Normal Balance Ability Dynamic Sitting Normal Balance Ability Standing Balance and Reactions Static Standing Good Balance Ability Dynamic Standing Good Balance Ability Device Used QC M5 PT-IP Objective Assessments Start: 09/05/24 15:12 Freq: NEEDED Status: Active Protocol: Document 09/05/24 14:56 MB (Rec: 09/05/24 15:22 MB Desktop) Orientation Orientation/Cognition Level of Alertness Alert Language Function No Deficits Noted Ability Safety Awareness Understands Safety Issues Memory Description No Deficits Noted Gross Range of Motion Upper Extremity ROM Impairments Did not test UEs Lower Extremity ROM Assessment Left Impaired Impairments Weakness from old stroke all LLE joints Strength Lower Extremity Strength Assessment Left Impaired Coordination Assessment Gross Coordination Gross Coordination Impaired Sensation Assessment Comments Sensation Comments NT M6 PT-IP Treatment Start: 09/05/24 15:12 Freq: NEEDED Status: Active Protocol: Document 09/05/24 14:56 MB (Rec: 09/05/24 15:22 MB Desktop) Physical Therapy Treatment Education Education Provided Safety M7 PT-IP Assessment and Plan Start: 09/05/24 15:12 Freq: NEEDED Status: Active Protocol: Document 09/05/24 14:56 MB (Rec: 09/05/24 15:22 MB Desktop) PT Summary Assessment and Plan Potential Rehabilitation Fair Potential Status of Condition Evolving at Evaluation Summary Impairments ROM,Strength,Balance,Coordination,Bed Mobility, Transfers,Gait,Activity Tolerance Assessment Summary Pt is a 74 y/o male presenting to hospital with COVID. He reports increased weakness lately since he has been sick and he has been hypertensive in the hospital. Pt presents at SBA level with mobility and moves slowly in the room with his QC. He presents with left sided weakness from old stroke. Pt will benefit from ongoing skilled PT at d/c to maximize mobility and safety. He reports one fall on steps and recently having to climb up the steps at home on his hands and knees d/t weakness from COVID. and pt state that his legs are doing a lot better in the hospital since he has been given a diuretic. Currently recommend SNF vs Home with assistance and HHPT. Goals Bed Mobility Goal Independent Transfer Goal Independent Gait Goal Independent Gait Distance 100 Other Goals Gait goal with QC Pt will ascend and descend 3-13 steps with rail and LRAD and no more than CGA to allow safe entrance and in home mobility. Days to Meet Goals 5 Frequency of Treatment Frequency Of Once a Day Treatment Treatment Plan Physical Therapy Bed Mobility Training,Transfer Training,Gait Training, Treatment Plan Therapeutic Exercise,Balance Retraining,Discharge Planning,Hot or Cold Pack,Neuromuscular Re-ed, Coordination Retraining,Manual Therapy Recommendations To Nursing Amount of Assist 1 Person Assist Needed Discharge Recommendations PT Discharge Home with 24/ Assist Available,Home Health,SNF Rehab, Recommendations Home vs SNF Transportation Needs Private Vehicle at Discharge - PT assist x1
[2024-09-06] VITALS (14 sets, daily range): BP systolic 133–180; BP diastolic 64–96; PULSE 56–80; RESP 15–20; TEMP 35.9–36.2; O2SAT 93–98
[2024-09-06] MEDS: VERAPAMIL 80 MG TABLET PO ×3 (01:15→21:15)
[2024-09-06] MEDS: ALBUTEROL 2.5 MG/3 ML NEB (ADULT) INH ×3 (06:07→21:03)
--- NOTE | 2024-09-06 07:51 | PM.PN.1 ---
Subjective Subjective Date Patient Seen: 09/06/24 Interval history: He is needing more time with PT to work on stairs before going home. His wheezing and breathing has improved. The BP was 178/90. There are no new labs to review. Exam Vital Signs (past 8 hours): - 09/06/24 00:00 09/06/24 00:59 09/06/24 01:15 Pulse Rate 68 64 68 Respiratory Rate 20 Blood Pressure 178/90 H 178/90 H 178/90 H Pulse Oximetry 93 Oxygen Delivery Method Fraction of Inspired Oxygen 09/06/24 06:09 Pulse Rate 76 Respiratory Rate 20 Blood Pressure Pulse Oximetry 97 Oxygen Delivery Method Room Air Fraction of Inspired Oxygen 21 Fraction of Inspired Oxygen 21 SaO2/FiO2 Ratio 461 Oxygen Delivery Method Room Air Narrative Exam Narrative: Alert and oriented, no apparent distress. Heart is regular rate and rhythm without murmur. Lungs clear to auscultation bilaterally Extremities have no ankle edema. Objective Labs 09/05/24 04:40 09/05/24 04:40 [facility] Medical History (Updated 09/04/24 @ 16:28 by Josie Goldman MD) Lymphedema History of melanoma Community acquired pneumonia Plantar fasciitis (10/02/10) Tinea pedis Onychomycosis Complete heart block Atrial fibrillation Osteopenia of femoral neck, bilateral (~12/2018) Mantle cell lymphoma (~10/2017) Squamous cell carcinoma (08/2019) CVA (cerebral vascular accident) (~11/2017) Pacemaker (~04/2018) Mild aortic stenosis by prior echocardiogram (08/13/11) Wears glasses Chronic back pain Mumps Measles Chicken pox Kidney stones (~1975) Skin cancer (~2004) TIA (transient ischemic attack) (~2009) Surgical History S/P TAVR (transcatheter aortic valve replacement) (~04/2018) Anesthesia History of tonsillectomy Status post cardiac pacemaker procedure (~05/14/18) S/P bronchoscopy with biopsy Family History Father Lung cancer Mother Parkinson's disease Sister Bladder cancer Social History household members: spouse Smoking Status: Never smoker alcohol intake: never substance use type: does not use Assessment & Plan Assessment & Plan narrative: This is a 74-year-old male with heart block status post pacemaker, atrial fibrillation, mantle cell lymphoma, previous CVA, previous pneumonia, melanoma, TAVR in 2020 and no history of emphysema or asthma who presents with 5 days of coughing and shortness of breath. His chest x-ray shows a possible left pleural effusion/infiltrate. Covid Pneumonia, present on admission, active -heavy wheezing on exam with no history of asthma or COPD. -dexamethasone IV 6 mg daily for 10 days. -patient was 90% on room air on presentation. Holding off on remdesivir at this point. -oxygen as needed. -ceftriaxone for possible bacterial pneumonia. Acute bronchospasm, present on admission, active. -secondary to acute viral pneumonia -dexamethasone and albuterol CHF, present on admission, active -continue torsemide, losartan and metoprolol. Atrial Fibrillation/CHB/Pacer, present on admission, chronic -continue verapamil, amlodipine, Eliquis and metoprolol. Left arm and leg chronic lymphedema, present on admission, chronic -continue compression stocking and torsemide. Hypertension, Present on admission, chronic -continue amlodipine, losartan, metoprolol and verapamil. Tolerating 2 calcium channel blockers? Discharge planning: Likely to return home on 09/07. Eliquis for DVT prevention His is his backup decision maker. Time-Based Coding :: [TOTAL MINUTES] spent with patient and on the chart (including review of chart, obtaining history, exam, reviewing outside data, placing orders, documenting exam and treatment plan, and counseling patient) on [DATE].
[2024-09-06] MEDS: APIXABAN 5 MG TABLET PO ×2 (08:42→21:17)
[2024-09-06] MEDS: DEXAMETHASONE 10 MG/ML VIAL 6 MG IV (08:43)
[2024-09-06] MEDS: METOPROLOL ER 25 MG TABLET PO (08:43)
[2024-09-06] MEDS: AMLODIPINE 5 MG TABLET PO (08:43)
[2024-09-06] MEDS: LOSARTAN 50 MG TABLET PO ×2 (08:43→21:17)
[2024-09-06] MEDS: AZITHROMYCIN 500 MG in DEXTROSE 5% IN WATER 250 ML 250 MG IV (08:44)
[2024-09-06] MEDS: SODIUM CHLORIDE 0.9% FLUSH 10 ML IV ×2 (08:51→21:20)
[2024-09-06] MEDS: CHOLECALCIFEROL (VITAMIN D3) 5,000 UNIT TABLET 5000 UNIT PO (10:17)
[2024-09-06] MEDS: cefTRIAXone 2,000 MG in SODIUM CHLORIDE 0.9% 100 ML 200 MG IV (10:19)
--- NOTE | 2024-09-06 15:13 | PT.IPTN ---
Current Diagnoses COVID-19 (09/04/24) Physical Therapy Treatment Note M2 PT-IP Current Condition Start: 09/05/24 15:12 Freq: NEEDED Status: Active Protocol: Document 09/05/24 14:56 MB (Rec: 09/05/24 15:22 MB Desktop) Physical Therapy Current Condition Current Condition Evaluation Date 09/05/24 Treatment Diagnosis COVID M3 PT-IP Subjective Start: 09/05/24 15:12 Freq: NEEDED Status: Active Protocol: Document 09/06/24 14:42 MB (Rec: 09/06/24 15:13 MB Desktop) Subjective Physical Therapy Visit Type Type Treatment Note Visit Start Time 14:42 Visit Stop Time 15:05 Number of FRAME OPENER Visits 0 Physical Therapy Visit Comments Patient Comments Pt is agreeable to try step training if PT brings step into the room. M4 PT-IP Mobility and Gait Start: 09/05/24 15:12 Freq: NEEDED Status: Active Protocol: Document 09/06/24 14:42 MB (Rec: 09/06/24 15:13 MB Desktop) PT-Transfer Assessment Sit to and From Stand Sit to and from Independent,Use of Upper Extremities Stand Equipment Transfer Assistive Small Based Quad Cane Device Transfers Transfer Destination Chair,Toilet Transfer Technique Ambulation Transfer Ability Level of Assist Independent,Standby Assistance Comments Mobility Comments Pt going to get up to BR I upon PT arrival and is I for toileting. Pt may benefit from superv from nsg for gait in room and toileting and PT communicates this with pt. Gait Assessment Gait Gait Assistance Standby Assistance Required: Distance (Feet) 15 Assistive Devices Assistive Device Gait Belt,Small Based Quad Cane Gait Deviations General Gait Pattern Decreased Stride Length,Lateral Trunk Lean,Step-to Gait ,Wide Based Gait Factors Limiting Gait Function Factors Limiting Abnormal Tonal Influences,Decreased Activity Tolerance, Gait Function Decreased Strength,Limited Range of Motion,Poor Balance Comments Gait Comments 15'x2 Stair Climbing Assessment Evaluation Level of Assist On Contact Guard Assistance,1 Person Assistance Stairs Devices Stair Climbing Small Base Quad Cane Assistive Devices Technique/Endurance Stair Climbing Ascend and Descend Direction Stair Climbing Step to Step Technique Number of Steps 1 Climbed Stair Climbing Set # 2 Repetitions (reps) Comments Stair Climbing Cues to use small rail on the right in room and to step Comments up first with the right foot and descend first with the left foot. Pt states that he does not feel comfortable stepping down first with the left foot, cues and CGA PT-Balance Assessment Sitting Balance and Reactions Static Sitting Normal Balance Ability Dynamic Sitting Normal Balance Ability Standing Balance and Reactions Static Standing Good Balance Ability Dynamic Standing Good Balance Ability Device Used QC M5 PT-IP Objective Assessments Start: 09/05/24 15:12 Freq: NEEDED Status: Active Protocol: Document 09/05/24 14:56 MB (Rec: 09/05/24 15:22 MB Desktop) Orientation Orientation/Cognition Level of Alertness Alert Language Function No Deficits Noted Ability Safety Awareness Understands Safety Issues Memory Description No Deficits Noted Gross Range of Motion Upper Extremity ROM Impairments Did not test UEs Lower Extremity ROM Assessment Left Impaired Impairments Weakness from old stroke all LLE joints Strength Lower Extremity Strength Assessment Left Impaired Coordination Assessment Gross Coordination Gross Coordination Impaired Sensation Assessment Comments Sensation Comments NT M6 PT-IP Treatment Start: 09/05/24 15:12 Freq: NEEDED Status: Active Protocol: Document 09/06/24 14:42 MB (Rec: 09/06/24 15:13 MB Desktop) Physical Therapy Treatment Education Education Provided Safety M7 PT-IP Assessment and Plan Start: 09/05/24 15:12 Freq: NEEDED Status: Active Protocol: Document 09/06/24 14:42 MB (Rec: 09/06/24 15:13 MB Desktop) PT Summary Assessment and Plan Potential Rehabilitation Fair Potential Status of Condition Evolving at Evaluation Summary Impairments ROM,Strength,Balance,Coordination,Bed Mobility, Transfers,Gait,Activity Tolerance Progress Towards Progressing Toward Goals Goals Assessment Summary Pt con't with COOPER and he progresses with step training today. Goals Bed Mobility Goal Independent Transfer Goal Independent Gait Goal Independent Gait Distance 100 Other Goals Gait goal with QC Pt will ascend and descend 3-13 steps with rail and LRAD and no more than CGA to allow safe entrance and in home mobility. Days to Meet Goals 5 Frequency of Treatment Frequency Of Once a Day Treatment Treatment Plan Physical Therapy Bed Mobility Training,Transfer Training,Gait Training, Treatment Plan Therapeutic Exercise,Balance Retraining,Discharge Planning,Hot or Cold Pack,Neuromuscular Re-ed, Coordination Retraining,Manual Therapy Recommendations To Nursing Amount of Assist 1 Person Assist Needed Discharge Recommendations PT Discharge Home with 22/09 Assist Available Recommendations Transportation Needs Private Vehicle at Discharge - PT assist x1
[2024-09-06] MEDS: BENZOCAINE/MENTHOL 1 LOZ PKT 1 EACH PO (21:16)
[2024-09-07] VITALS: BP 163/94; PULSE 69; RESP 18; TEMP 35.9; O2SAT 95
[2024-09-07 04:00] VITALS: BP 159/96; PULSE 84; RESP 18; TEMP 36.3; O2SAT 98
[2024-09-07] MEDS: ALBUTEROL 2.5 MG/3 ML NEB (ADULT) INH (08:29)
[2024-09-07 08:30] VITALS: BP 166/90; PULSE 66; RESP 17; TEMP 36; O2SAT 94
[2024-09-07 08:53] VITALS: PULSE 64; RESP 20; O2SAT 96
--- NOTE | 2024-09-07 09:36 | PM.DS.1 ---
History of Present Illness History of Present Illness Chief complaint: SOB, rapid breathing, coughing x7days Narrative: From H&P: This is a 74-year-old male with heart block status post pacemaker, atrial fibrillation, mantle cell lymphoma, previous CVA, previous pneumonia, melanoma, TAVR in 2020 and no history of emphysema or asthma who presents with 5 days of coughing and shortness of breath. His chest x-ray shows a possible left pleural effusion/infiltrate with cardiomegaly. The troponin is 0.1 and 0.09. The BNP is 4240. The INR is 1.8. The white blood count is 6.9 and the COVID test is positive. His chronic post lymphoma treatment lymphedema is slightly worse on the left side. Discharge Providers Provider Date of admission: 09/04/24 08:05 Discharge Date: 09/07/24 Primary care physician: Danielle Kennedy DO Consults: 09/05/24 11:46 Consult to Physical Therapy Evaluate & Treat Comment: multiple GLF at home Physician Instructions: Evaluate and Treat Discharge provider: Deshawn Ariza MD Summary Hospital Course Discharge Diagnosis: 1. Covid Pneumonia, present on admission, improved. -heavy wheezing on exam with no history of asthma or COPD. -dexamethasone IV 6 mg daily for 10 days. -patient was 90% on room air on presentation. Holding off on remdesivir at this point. -ceftriaxone for possible bacterial pneumonia. 2. Acute bronchospasm, present on admission, improved. -secondary to acute viral pneumonia -dexamethasone and albuterol 3. Chronic diastolic heart failure (EF 62%), present on admission, stable. -continue torsemide, losartan and metoprolol. 4. Atrial Fibrillation/CHB/Pacer, present on admission, chronic -continue verapamil, amlodipine, Eliquis and metoprolol. 5. Left arm and leg chronic lymphedema, present on admission, chronic -continue compression stocking and torsemide. 6. Hypertension, Present on admission, chronic -continue amlodipine, losartan, metoprolol and verapamil. Tolerating 2 calcium channel blockers? Hospital Course: He was admitted with COVID and wheezing. He was treated with empiric antibiotics for possible bacterial pneumonia as well as dexamethasone IV. He was initially 90% on room air and improved. On the day of discharge he felt much better and requested discharge home. His also has some URI symptoms it was presumably COVID positive. He was lung exam of the day of discharge is notable for minimal wheezing. He will continue on antibiotics for several more days as well as prednisone 50 mg a day for 3 more days. Status at Discharge Cognitive/behavioral status at discharge: oriented Functional status at discharge: independent ambulation Overall status at discharge: patient is back to baseline Time Spent with Patient Time spent: Greater than 30 minutes Exam Vital Signs (past 8 hours): - 09/07/24 04:00 09/07/24 08:30 09/07/24 08:53 Temperature 97.4 F L 96.8 F L Pulse Rate 84 66 64 Respiratory Rate 18 17 20 Blood Pressure 159/96 H 166/90 H Pulse Oximetry 98 94 96 Oxygen Delivery Method Room Air Oxygen Flow Rate 0 0 0 Fraction of Inspired Oxygen 21 Fraction of Inspired Oxygen 21 SaO2/FiO2 Ratio 447 Oxygen Delivery Method Room Air Oxygen Flow Rate 0 Narrative Exam Narrative: NAD, alert and oriented. Fluent speech. Lungs are clear, normal rate and effort. Good air movement, minimal wheezing. Heart is regular, no murmur gallop or rub. Abdomen is soft, non distended. Extremities are free of edema. Objective ECG Impression: Intervals [place] Rate: 72 P: DE: QRS: -75 QRSD: 194 T: 88 QT: 510 QTc: 558 Interpretive Statements Ventricular-paced rhythm with occasional premature ventricular complexes Imaging Chest x-ray: Radiologist's impression: Cardiomegaly and mild congestion. Small left pleural effusion. No definite focal infiltrate. No pneumothorax. No discrepancies. Labs 09/05/24 04:40 09/05/24 04:40 [facility] Medical History (Updated 09/04/24 @ 16:28 by Josie Goldman MD) Lymphedema History of melanoma Community acquired pneumonia Plantar fasciitis (10/02/10) Tinea pedis Onychomycosis Complete heart block Atrial fibrillation Osteopenia of femoral neck, bilateral (~12/2018) Mantle cell lymphoma (~10/2017) Squamous cell carcinoma (08/2019) CVA (cerebral vascular accident) (~11/2017) Pacemaker (~04/2018) Mild aortic stenosis by prior echocardiogram (08/13/11) Wears glasses Chronic back pain Mumps Measles Chicken pox Kidney stones (~1975) Skin cancer (~2004) TIA (transient ischemic attack) (~2009) Surgical History S/P TAVR (transcatheter aortic valve replacement) (~04/2018) Anesthesia History of tonsillectomy Status post cardiac pacemaker procedure (~05/14/18) S/P bronchoscopy with biopsy Family History Father Lung cancer Mother Parkinson's disease Sister Bladder cancer Social History household members: spouse Smoking Status: Never smoker alcohol intake: never substance use type: does not use Discharge Assessment & Plan Assessment and Plan Assessment: 1. Covid Pneumonia, present on admission, improved. -heavy wheezing on exam with no history of asthma or COPD. -dexamethasone IV 6 mg daily for 10 days. -patient was 90% on room air on presentation. Holding off on remdesivir at this point. -ceftriaxone for possible bacterial pneumonia. 2. Acute bronchospasm, present on admission, improved. -secondary to acute viral pneumonia -dexamethasone and albuterol Plan of Treatment: Discharge home on cefdinir for 3 more days and prednisone for 5 more days. Follow up with PCP within the next week to 10 days, sooner if having increased cough, fevers, or shortness a breath. Discharge Plan Discharge Plan Patient Disposition: Home Provider Discharge Comment: Stable for discharge home. Discharge orders & Medications Prescriptions: New cefdinir 300 mg capsule 300 mg PO BID Qty: 6 0RF prednisone 50 mg tablet 50 mg PO DAILY Qty: 5 0RF Continued amlodipine 5 mg tablet 5 mg PO DAILY Qty: 90 3RF (DME) Disabled Parking Permit See Rx Instructions .ROUTE .MEDSUPPLY Qty: 1 0RF Rx Instructions: Valid for 5 years metoprolol succinate 25 mg tablet extended release 24 hr 25 mg PO BID Qty: 180 3RF losartan 50 mg tablet 50 mg PO BID Qty: 180 2RF apixaban 5 mg tablet 5 mg PO BID torsemide 20 mg tablet 20 mg PO DAILY PRN (Reason: Shortness Of Breath) coenzyme Q10 300 mg capsule 300 mg PO DAILY cholecalciferol (vitamin D3) 125 mcg (5,000 unit) capsule 125 mcg PO DAILY omega-3 fatty acids 1,000 mg capsule 1,000 mg PO DAILY Pepcid Complete 10-800-165 mg tablet,chewable 1 tab PO DAILY PRN (Reason: inde) verapamil 120 mg tablet extended release 120 mg PO Q12H Medication counseling provided by Pharmacist: Yes Follow up/Referrals: Danielle Kennedy DO [Primary Care Provider, Medical] Discharge Health Status Multidrug resistant organism: No MDRO Diet/Activity/Treatments Diet: Diet as Tolerated Visit Report/Discharge Packet Instructions: DI for Heart Failure, DI for Pneumonia -- Adult, DI for Cough -- Adult, How to Prevent Falls, DI for Muscle Weakness, DI for COVID-19 (Suspected or Confirmed ), How to Care for Someone with COVID-19, COVID-19_ Can I Get It Again Stand Alone Forms: Patient Portal/API Discharge Data Primary Care Provider: Danielle Kennedy
[2024-09-07] MEDS: VERAPAMIL 80 MG TABLET PO (10:21)
[2024-09-07] MEDS: DEXAMETHASONE 10 MG/ML VIAL 6 MG IV (10:21)
[2024-09-07] MEDS: AMLODIPINE 5 MG TABLET PO (10:21)
[2024-09-07] MEDS: APIXABAN 5 MG TABLET PO (10:22)
[2024-09-07] MEDS: cefTRIAXone 2,000 MG in SODIUM CHLORIDE 0.9% 100 ML 200 MG IV (10:22)
[2024-09-07] MEDS: LOSARTAN 50 MG TABLET PO (10:22)
[2024-09-07] MEDS: METOPROLOL ER 25 MG TABLET PO (10:22)
--- NOTE | 2024-09-07 11:28 | CM.DPC ---
DCP Cont. Reviewed EMR and team rounds for pt's status updates. Pt has been cleared for home d/c today. His spouse will transport him. No further d/c needs indicated at this time.
--- NOTE | 2024-09-08 08:02 | CM.DPC ---
DCP Cont. Faxed F/F orders to [facility] .
== END 2024-09-07 14:00 | disposition home health service (06) | DRG 177 ==
LOC: ED 07:53 → AC 08:06
PROVIDERS: Admitting Provider Family Medicine; Emergency Provider Emergency Medicine; Family Provider Family Medicine; PCP Family Medicine; Referring Provider Emergency Medicine; Visit Provider Family Medicine
DX: U07.1 COVID-19 (principal); J12.82 Pneumonia due to coronavirus disease 2019; J15.9 Unspecified bacterial pneumonia; I50.32 Chronic diastolic (congestive) heart failure; C83.10 Mantle cell lymphoma, unspecified site; J98.01 Acute bronchospasm; I45.9 Conduction disorder, unspecified; I48.91 Unspecified atrial fibrillation; I89.0 Lymphedema, not elsewhere classified; I11.0 Hypertensive heart disease with heart failure; Z86.73 Personal history of transient ischemic attack (TIA), and cerebral infarction without residual deficits; Z95.0 Presence of cardiac pacemaker; Z95.2 Presence of prosthetic heart valve; Z79.01 Long term (current) use of anticoagulants
CPT/HCPCS: 36415; 71045; 80053; 83605; 83880; 84484; 85025; 85610; 87040; 87637; 93005; 93010; 94640; 94760; 96365; 96367; 96375; 97116; 97162; 99284; 99291; J0696; J1100; J1938; J7613

== ENCOUNTER → 2024-10-07 15:44 | Outpatient (CLI) | payer OTHER, SELFPAY ==
[2024-09-04 11:48] VITALS: BMI 42.8
[2024-10-07 18:22] LABS: NT-proBNP (BNP-Adult 18+) 3140 pg/mL (<450)
[2024-10-11 15:36] LABS: Free Kappa Lt Chains, Serum 30.5 mg/L (3.3-19.4); Free Lambda Lt Chains,Serum 26.7 mg/L (5.7-26.3)
== END ==
PROVIDERS: PCP Family Medicine; Referring Provider Internal Medicine; Visit Provider Internal Medicine
DX: I42.9 Cardiomyopathy, unspecified (principal)
CPT/HCPCS: 36415; 83880; 83883; 84155; 84165

== ENCOUNTER 2024-12-19 07:16 | Inpatient (IN) | payer OTHER, SELFPAY ==
[2024-09-04 11:48] VITALS: BMI 42.8
[2024-12-19] VITALS (27 sets, daily range): BP systolic 128–181; BP diastolic 58–92; PULSE 67–86; RESP 19–34; TEMP 36.9–37.8; O2SAT 91–100; BMI 41.5
--- NOTE | 2024-12-19 07:27 | ED.GENADULT ---
HPI - General Adult General Chief complaint: Nausea/Vomiting/Diarrhea Stated complaint: low blood pressure , Not feeling good Time Seen by Provider: 12/19/24 07:27 Source: patient and family History of Present Illness HPI narrative: 74-year-old male patient with a history of hypertension, CHF, aortic valve replacement/anticoagulation, peripheral arterial disease, morbid obesity, chronic venous insufficiency, pacemaker for third-degree heart block, CVA with left hemiparesis and mantle cell lymphoma who had 1 watery bowel movement last night and then woke up with vomiting this morning and was down on the bathroom floor and could not get up. This has happened to him before because of his left hemiparesis. His called the paramedics and they helped to get him up or were concerned about a low blood pressure. He received 8 mg Zofran and route and is now feeling less nausea. Denies fever, chills or confusion. He has mild abdominal discomfort. He thinks he was on the ground about a 1/2 hour. Related Data Home Medications ?Medication ?Instructions ?Recorded ?Confirmed apixaban 5 mg tablet 5 mg PO BID 08/07/19 10/28/24 cholecalciferol (vitamin D3) 125 125 mcg PO DAILY 07/21/22 10/28/24 mcg (5,000 unit) capsule coenzyme Q10 300 mg capsule 300 mg PO DAILY 07/21/22 10/28/24 famotidine-Ca carb-mag hydrox 10 1 tab PO DAILY PRN inde 07/21/22 10/28/24 mg-800 mg-165 mg chewable tablet (Pepcid Complete) omega-3 fatty acids 1,000 mg 1,000 mg PO DAILY 07/21/22 10/28/24 capsule verapamil 120 mg tablet,extended 120 mg PO Q12H 09/04/24 10/28/24 release empagliflozin 10 mg tablet 10 mg PO DAILY 10/28/24 10/28/24 (Jardiance) Previous Rx's ?Medication ?Instructions ?Recorded amlodipine 5 mg tablet 5 mg PO DAILY #90 tabs 12/14/23 Disabled Parking Permit #1 ea 01/04/24 metoprolol succinate 25 mg 25 mg PO BID #180 tabs 04/11/24 tablet,extended release 24 hr losartan 50 mg tablet 50 mg PO BID #180 tabs 08/23/24 torsemide 10 mg tablet 10 mg PO DAILY Shortness Of Breath 07/21/25 #90 tabs Allergies Allergy/AdvReac Type Severity Reaction Status Date / Time No Known Drug Allergies Allergy Verified 10/28/24 18:03 Patient History Medical History (Updated 12/19/24 @ 12:41 by Alan Castelan MD) COVID-19 Pneumonia Lymphedema History of melanoma Community acquired pneumonia Plantar fasciitis (10/02/10) Complete heart block Atrial fibrillation Osteopenia of femoral neck, bilateral (~12/2018) Mantle cell lymphoma (~10/2017) Squamous cell carcinoma (08/2019) CVA (cerebral vascular accident) (~11/2017) Pacemaker (~04/2018) Mild aortic stenosis by prior echocardiogram (08/13/11) Wears glasses Chronic back pain Mumps Measles Chicken pox Kidney stones (~1975) Skin cancer (~2004) TIA (transient ischemic attack) (~2009) Surgical History S/P TAVR (transcatheter aortic valve replacement) (~04/2018) Anesthesia History of tonsillectomy Status post cardiac pacemaker procedure (~05/14/18) S/P bronchoscopy with biopsy Family History Father Lung cancer Mother Parkinson's disease Sister Bladder cancer Social History household members: spouse alcohol intake: never substance use type: does not use alcohol intake frequency: 0-2 drinks per day Exam Narrative Exam Narrative: General: Alert and conversant. No distress. Appears well nourished and well hydrated. Obese. Craniofacial: No evidence of trauma. Nontender and no swelling. Eyes: PERRLA EOMI conjunctiva clear Lungs: Clear to auscultation with good air movement. No wheezing, rales or rhonchi. No respiratory distress Cardiac: Regular rate and rhythm with no appreciable murmur or gallop Abdomen: Soft, nontender with no distention or masses. Normal bowel sounds. No rebound or guarding Musculoskeletal: 3+ edema with venous stasis changes. Otherwise Exam of the extremities, axial spine and ribcage reveals no deformity, bony tenderness or swelling. Range of motion intact Neuro: Alert and oriented. Cranial nerves, motor, sensory and cerebellar all grossly intact. No focal deficit Skin: Warm and normal color. No rashes Psychological: Normal affect and interaction. No evidence of delusion or psychosis. Normal mood. Initial Vital Signs Initial Vital Signs: Vital Signs Pulse Rate 84 12/19/24 07:23 Respiratory Rate 34 H 12/19/24 07:23 Blood Pressure 151/74 H 12/19/24 07:23 Pulse Oximetry 96 12/19/24 07:23 Course Course Course Narrative: Lab work reveals hyperkalemia at 6.2 with symptoms of generalized weakness. We will administer calcium gluconate and discuss with hospitalist for admission. Patient also has acute renal injury probably from hypovolemia. He is getting IV fluids. Creatinine is 1.67 with a GFR of 42. Previous was creatinine 0.97 which is his baseline. 1236 I discussed the patient's care with Dr. Lynch, hospitalist who agrees to admit him on observation for hyperkalemia and hypovolemic acute renal injury. Patient is receiving IV fluids and his nausea has been controlled with Zofran and Compazine. Orders Ordered: ED Orders 12/19/24 07:29 CPK [Creatine Kinase] Stat Complete Blood Count AUTO DIFF Stat Comprehensive Metabolic Panel Stat 12/19/24 07:32 EKG-12 Lead Routine 12/19/24 08:07 GI Panel (Film Array) Stat 12/19/24 09:17 Urine Culture Stat Urine Microscopic Stat Discontinued Medications Acetaminophen (Acetaminophen 325 Mg Tablet) 650 mg PO NOW ONE Stop: 12/19/24 08:49 Last Admin: 12/19/24 09:01 Dose: 650 mg Documented By: BARBIE Sodium Chloride (Normal Saline 0.9%) 1,000 mls @ 1,000 mls/hr IV BOLUS ONE Stop: 12/19/24 08:59 Last Infusion: 12/19/24 10:40 Dose: Infused Documented By: Admin: 12/19/24 08:55 Dose: 1,000 mls/hr Documented By: ES Calcium Gluconate 4.65 meq/ (Sodium Chloride) 60 mls @ 180 mls/hr IV NOW ONE Stop: 12/19/24 12:15 Last Infusion: 12/19/24 12:36 Dose: Infused Documented By: Admin: 12/19/24 12:09 Dose: 180 mls/hr Documented By: MONICA Prochlorperazine (Prochlorperazine 10 Mg/2 Ml Vial) 10 mg IV NOW ONE Stop: 12/19/24 08:01 Last Admin: 12/19/24 08:55 Dose: 10 mg Documented By: ES Vital Signs Vital signs: Vital Signs - 8 hr 12/19/24 07:23 12/19/24 07:23 12/19/24 07:26 Temperature 99.0 F Pulse Rate 84 84 Respiratory Rate 34 H 24 Blood Pressure 151/74 H 151/74 H Pulse Oximetry 96 97 Oxygen Delivery Method Room Air 12/19/24 07:30 12/19/24 07:30 12/19/24 08:10 Temperature Pulse Rate 70 75 Respiratory Rate 29 H 32 H Blood Pressure 142/63 H Pulse Oximetry 100 96 Oxygen Delivery Method 12/19/24 08:12 12/19/24 08:12 12/19/24 08:30 Temperature Pulse Rate 78 Respiratory Rate 28 H Blood Pressure 153/83 H 163/74 H Pulse Oximetry 97 Oxygen Delivery Method 12/19/24 08:30 12/19/24 08:55 12/19/24 09:00 Temperature Pulse Rate 76 84 67 Respiratory Rate 29 H 31 H Blood Pressure 163/74 H Pulse Oximetry 94 94 Oxygen Delivery Method 12/19/24 09:01 12/19/24 09:01 12/19/24 09:30 Temperature Pulse Rate 74 77 Respiratory Rate 28 H 26 H Blood Pressure 130/63 Pulse Oximetry 91 96 Oxygen Delivery Method 12/19/24 09:30 12/19/24 10:00 12/19/24 10:00 Temperature Pulse Rate 80 Respiratory Rate 24 Blood Pressure 128/66 153/70 H Pulse Oximetry 96 Oxygen Delivery Method 12/19/24 10:30 12/19/24 10:31 12/19/24 10:31 Temperature Pulse Rate 76 78 Respiratory Rate 26 H 26 H Blood Pressure 129/58 L Pulse Oximetry 95 96 Oxygen Delivery Method 12/19/24 11:00 12/19/24 11:00 12/19/24 11:30 Temperature Pulse Rate 80 86 Respiratory Rate 25 H 22 Blood Pressure 138/75 Pulse Oximetry 95 Oxygen Delivery Method 12/19/24 11:31 12/19/24 11:31 12/19/24 12:00 Temperature Pulse Rate 75 82 Respiratory Rate Blood Pressure 173/80 H Pulse Oximetry 95 Oxygen Delivery Method 12/19/24 12:00 12/19/24 12:30 12/19/24 12:30 Temperature Pulse Rate 77 Respiratory Rate 21 Blood Pressure 167/76 H 177/77 H Pulse Oximetry 96 Oxygen Delivery Method Medical Decision Making Lab Data Lab results reviewed: Yes I reviewed the patient's lab results. Lab results narrative: WBCs 12.9. Hemoglobin 19.6. Potassium 6.2 and creatinine 1.67. Baseline creatinine is 0.97 12/19/24 07:29 12/19/24 07:29 Labs: Lab Results 12/19/24 12/19/24 12/19/24 Range/Units 07:29 08:07 09:17 WBC 12.9 H (4.5-11.0) X10^3/uL RBC 6.49 H (4.5-5.9) X10^6/uL Hgb 19.6 H (13.5-17.5) g/dL Hct 57.9 H (41-53) % MCV 89.3 (80-100) fL MCH 30.2 (26-34) PG MCHC 33.9 (30-36) % RDW 15.8 H (11.6-14.8) % Plt Count 279 (150-400) X10^3/uL Neut % (Auto) 91.1 H (50-75) % Lymph % (Auto) 1.7 L (25-40) % [place] % (Auto) 5.1 (3-14) % Eos % (Auto) 1.9 L (2-4) % Baso % (Auto) 0.2 (0-2) % Neut # (Auto) 81321 H (8939-0442) /uL Lymph # (Auto) 200 L (4318-4277) /uL [place] # (Auto) 700 (0-900) /uL Eos # (Auto) 200 (0-450) /uL Baso # (Auto) 0 (0-100) /uL RBC Morphology See below Polychromasia 2+ H Poikilocytosis 1+ H Anisocytosis 1+ H Microcytosis 1+ H Tear Drop Cells 1+ H Sodium 138 (137-145) mmol/L Potassium 6.2 H (3.4-5.1) mmol/L Chloride 102 (98-107) mmol/L Carbon Dioxide 23 (22-32) mmol/L BUN 20 (9-20) mg/dL Creatinine 1.67 H (0.66-1.25) mg/dL Estimated GFR 42 L (>60) mL/min BUN/Creatinine Ratio 12.0 (6-22) Glucose 155 H (70-99) mg/dL Calcium 9.9 (8.4-10.2) mg/dL Total Bilirubin 1.6 H (0.2-1.3) mg/dL AST 35 (17-59) IU/L ALT 21 (<50) IU/L Alkaline Phosphatase 88 (38-126) U/L Total Creatine Kinase 37 L (55-170) U/L Total Protein 8.5 H (6.3-8.2) g/dL Albumin 4.9 (3.5-5.0) g/dL Globulin 3.6 (1.7-4.1) g/dL Albumin/Globulin Ratio 1.4 (1.0-2.8) Urine RBC None seen (0-5/HPF) Urine WBC None seen (0-5/HPF) Ur Squamous Epith Cells None seen (0-5/HPF) Urine Bacteria None seen (None) Ur Culture Indicated? Cult not indicated Vol Urine Centrifuged 10ml (spun) Stl C. cayetanensis PCR Not detected (Not Detect) Stool Rotavirus (PCR) Not detected (Not Detect) Stool Adenovirus (PCR) Not detected (Not Detect) Stool Astrovirus (PCR) Not detected (Not Detect) Stool Cryptosporidium PCR Not detected (Not Detect) Stl E.coli Shiga Tox PCR Not detected (Not Detect) St Sh/Enteroin Ecoli PCR Not detected (Not Detect) Stl Enterotoxigenic E PCR Not detected (Not Detect) Stool EPEC (PCR) Detected (Not Detect) Stl E. histolytica PCR Not detected (Not Detect) Stool Giardia Lamblia PCR Not detected (Not Detect) Stool Sapovirus (PCR) Not detected (Not Detect) Stl P. shigelloides PCR Not detected (Not Detect) St Y.enterocolitica PCR Not detected (Not Detect) Stool Vibrio (PCR) Not detected (Not Detect) Stl Vibrio cholerae PCR Not detected (Not Detect) Stl Enteroaggr Ecoli PCR Not detected (Not Detect) Stl Norovirus GI/GII PCR Detected (Not Detect) Campylobacter (PCR) Not detected (Not Detect) C. difficile Tox (PCR) Not detected (Not Detect) Salmonella (PCR) Not detected (Not Detect) Urine Dip Bedside Urine Glucose 1000 mg/dl Bedside Urine Bilirubin - Negative Bedside Urine Ketone - Negative Urine Specific [place] 1.015 Bedside Urine Occult Blood - Negative Bedside Urine pH 6.0 Bedside Urine Protein + 30 Bedside Urine Urobilinogen - Negative Bedside Urine Nitrite - Negative Bedside Urine Leukocytes - Negative Esterase Point of care testing: Urine Dip Bedside Urine Glucose 1000 mg/dl Bedside Urine Bilirubin - Negative Bedside Urine Ketone - Negative Urine Specific [place] 1.015 Bedside Urine Occult Blood - Negative Bedside Urine pH 6.0 Bedside Urine Protein + 30 Bedside Urine Urobilinogen - Negative Bedside Urine Nitrite - Negative Bedside Urine Leukocytes - Negative Esterase ECG Data Attestation: I personally reviewed and interpreted this ECG as follows: (Atrial fibrillation. LAD. Nonspecific IVB. No acute ischemic changes. Rate 83) MDM Narrative Medical decision making narrative: Patient presents with vomiting and diarrhea consistent with viral gastroenteritis and has acute kidney injury probably secondary to hypovolemia. Also hyperkalemia at 6.2. I discussed the patient's care with the hospitalist who agrees to admit him on observation for hydration and monitoring potassium status. To this point the patient has had decreased nausea and vomiting after medications and has been hydrated with normal saline. Discharge Plan Departure Patient Disposition: Admitted as Observation Clinical Impression: Acute hyperkalemia, Acute kidney injury (nontraumatic), Viral gastroenteritis Admit Date/Time: 12/19/24 12:39 Admit Provider: Jonatan Lynch
--- NOTE | 2024-12-19 07:32 | EKG_ITS ---
[address] [address] Test Date: 2024-12-19 Pat Name: Pierce Voss Department: Room: Gender: Male Binding Dyer: : 1950 Requested By: Order Number: [id number] Reading MD: Dayton Patel MD Measurements Intervals [place] Rate: 83 P: [place]: QRS: -89 QRSD: 164 T: 73 QT: 450 QTc: 528 Interpretive Statements Atrial fibrillation Left axis deviation Nonspecific intraventricular block Lateral infarct , age undetermined Inferior infarct , age undetermined Suspect paced rhythm based on prior tracings, but no pacer spikes seen, baseline artifact could be masking Electronically Signed On 12-19-2024 11:57:23 PDT by Dayton Patel MD
[2024-12-19 08:54] LABS: Alanine Aminotransferase 21 IU/L (<50); Albumin 4.9 g/dL (3.5-5.0); Albumin Globulin Ratio 1.4 (1.0-2.8); Alkaline Phosphatase 88 U/L (38-126); Blood Urea Nitrogen 20 mg/dL (9-20); Calcium 9.9 mg/dL (8.4-10.2); Carbon Dioxide 23 mmol/L (22-32); Chloride 102 mmol/L (98-107); Creatine Kinase 37 U/L (55-170); Estimated Glomerular Filt Rate 42 mL/min (>60); Globulin 3.6 g/dL (1.7-4.1); Glucose 155 mg/dL (70-99); HEMOLYSIS 16 (0-50); Potassium 6.2 mmol/L (3.4-5.1); Sodium 138 mmol/L (137-145); Total Protein 8.5 g/dL (6.3-8.2)
[2024-12-19] MEDS: PROCHLORPERAZINE 10 MG/2 ML VIAL IV (08:55)
[2024-12-19] MEDS: SODIUM CHLORIDE 0.9% 1,000 ML 1000 ML IV (08:55)
[2024-12-19 08:56] LABS: Add Manual Diff / Slide Review NO; Hematocrit 57.9 % (41-53); Hemoglobin 19.6 g/dL (13.5-17.5); Lymphocytes Absolute Auto 200 /uL (1100-4500); Mean Corpuscular HGB Conc 33.9 % (30-36); Mean Corpuscular Hemoglobin 30.2 PG (26-34); Mean Corpuscular Volume 89.3 fL (80-100); Platelet Count 279 X10^3/uL (150-400)
[2024-12-19] MEDS: ACETAMINOPHEN 325 MG TABLET 650 MG PO ×2 (09:01→21:13)
[2024-12-19 09:15] LABS: Anisocytosis 1+; Microcytosis 1+; Polychromasia 2+
[2024-12-19 09:17] LABS: Poikilocytosis 1+; Tear Drop Cells 1+
[2024-12-19 09:30] LABS: Culture Indicated Urine Cult Not Indicated
[2024-12-19] MEDS: CALCIUM GLUCONATE 4.65 MEQ in SODIUM CHLORIDE 0.9% 50 ML 180 MEQ IV (12:09)
[2024-12-19 12:47] LABS: Clostridium difficile toxin AB Not Detected (Not Detect); Enteroaggregative E.coli Not Detected (Not Detect); Enteropathogenic E.coli Detected (Not Detect); Enterotoxigenic E.coli It/st Not Detected (Not Detect); Plesiomonsa shigelloides Not Detected (Not Detect); Shiga-like toxin-prod E.coli Not Detected (Not Detect)
--- NOTE | 2024-12-19 14:18 | CM.DANOTE ---
DCP Assessment Note: Pt is a 74yo male, resident of [place], is admitted for hyperkalemia, Norovirus. Pt lives in a house with their spouse, Christine. Pt's Primary Care Provider is Dr. Danielle Kennedy and insurance is [facility] [employer]. Reviewed chart and discussed with multidisciplinary team pt's medical status and initial discharge needs. Per ED Provider, pt to be admitted for IV abx, fluids and antiemetics. SUPERVISOR MODEL MAKING called [facility] and spoke with Neal, who confirms that pt's last established care episode was in January 2024. Plan: Anticipating dc home with spouse when cleared, following for home health need. CM team will follow closely for coordination of discharge plans. Holli Crump DIVER TENDER Discharge Planning/Care Management CM Discharge Assessment Start: 12/19/24 13:16 Freq: Status: Active Protocol: Document 12/19/24 14:17 MW (Rec: 12/19/24 14:18 MW [id number]) Discharge Planning Assessment Assigned Discharge GAURAV De La Garza Jewel Hole Cornerer Provider Dr. Danielle Kennedy Insurance [facility] DPOA/Assigned Christine Voss, Designee Name Contact Information [phone] Advance Directives? No Advance Directives No on File History Provided By Patient,Significant Other,Medical Record Prior Living House Arrangements Household Members spouse Independent with ADL Yes 's Is patient alert and Yes oriented? Caregiver for No Another DME Already Rented / Cane Owned Patient/Family Home with Home Health Preference Discharge Plan Home Transportation Likely spouse or Dtr Arrangement Additional Comment Pending PT eval and recommendations Review Status In Process Please Provide Date 12/19/24 Initial DC Assessment Was Performed Next Review Type Continued Stay Review
--- NOTE | 2024-12-19 16:27 | PM.HP.1 ---
History of Present Illness History of Present Illness Date Patient Seen: 12/19/24 Chief complaint: Diarrhea from norovirus and EPEC Narrative: Chief complaint: Abdominal cramping diarrhea weakness secondary to enteropathogenic E coli and norovirus coinfection with colitis History of present illness: 12/19: 74-year-old male patient with a history of hypertension, CHF, aortic valve replacement/anticoagulation, peripheral arterial disease, morbid obesity, chronic venous insufficiency, pacemaker for third-degree heart block, CVA with left hemiparesis and mantle cell lymphoma who had 1 watery bowel movement last night and then woke up with vomiting this morning and was down on the bathroom floor and could not get up. This has happened to him before because of his left hemiparesis. His called the paramedics and they helped to get him up or were concerned about a low blood pressure. He received 8 mg Zofran and route and is now feeling less nausea. Denies fever, chills or confusion. He has mild abdominal discomfort. He thinks he was on the ground about a 1/2 hour. Findings in the emergency department significant for: GI film panel below: Campylobacter Not Detected Not Detect Clostridium difficile toxin AB Not Detected Not Detect Plesiomonsa shigelloides Not Detected Not Detect Salmonella Not Detected Not Detect Vibrio Not Detected Not Detect Vibrio cholerae Not Detected Not Detect Yersinia enterocolitica Not Detected Not Detect Enteroaggregative E.coli Not Detected Not Detect Enteropathogenic E.coli Detected Not Detect Enterotoxigenic E.coli It/st Not Detected Not Detect Shiga-like toxin-prod E.coli Not Detected Not Detect Shigella/Enteroinvasive E.coli Not Detected Not Detect Cryptosporidium Not Detected Not Detect Cyclospora cayetanensis Not Detected Not Detect Entamoeba histolytica Not Detected Not Detect Giardia lamblia Not Detected Not Detect Adenovirus F 40/41 Not Detected Not Detect Astrovirus Not Detected Not Detect Norovirus GI/GII Detected Not Detect Rotavirus A Not Detected Not Detect Sapovirus [place]ed [place] [address] 91% neutrophils potassium 6.2 do a bilirubin 1.6 Review of systems: No chest pain palpitations Shortness for breath The paresthesia paresis No urinary symptoms Physical exam Well-developed large-framed elderly male in no acute distress but ill-appearing HEENT unremarkable Heart rate and rhythm regular Lungs clear Abdomen nontender nondistended bowel sounds hyperactive Extremities 2+ edema in lower extremities For objective laboratory and imaging data please see bottom of the note Assessment and plan: Diarrhea and colitis with acute kidney injury hyperkalemia with findings of norovirus and enteropathic E coli Generous IV fluid hydration IV ciprofloxacin due to severity of patient's condition (less severe conditions would normally not be treated) Daily electrolyte and BUN creatinine monitoring Surveillance for rise in bilirubin for risk of hemolysis (HS) Chronic medical conditions: S/P TAVR (transcatheter aortic valve replacement) (~04/2018) History of tonsillectomy Status post cardiac pacemaker procedure (~05/14/18) DVT prophylaxis: [facility] Medical History (Updated 12/19/24 @ 12:41 by Alan Castelan MD) COVID-19 Pneumonia Lymphedema History of melanoma Community acquired pneumonia Plantar fasciitis (10/02/10) Complete heart block Atrial fibrillation Osteopenia of femoral neck, bilateral (~12/2018) Mantle cell lymphoma (~10/2017) Squamous cell carcinoma (08/2019) CVA (cerebral vascular accident) (~11/2017) Pacemaker (~04/2018) Mild aortic stenosis by prior echocardiogram (08/13/11) Wears glasses Chronic back pain Mumps Measles Chicken pox Kidney stones (~1975) Skin cancer (~2004) TIA (transient ischemic attack) (~2009) Surgical History S/P TAVR (transcatheter aortic valve replacement) (~04/2018) Anesthesia History of tonsillectomy Status post cardiac pacemaker procedure (~05/14/18) S/P bronchoscopy with biopsy Family History Father Lung cancer Mother Parkinson's disease Sister Bladder cancer Social History household members: spouse Smoking Status: Never smoker alcohol intake: never substance use type: does not use Meds Home Medications and Allergies Home Medications ?Medication ?Instructions ?Recorded ?Confirmed ?Type apixaban 5 mg tablet 5 mg PO BID 08/07/19 10/28/24 History cholecalciferol (vitamin D3) 125 125 mcg PO DAILY 07/21/22 10/28/24 History mcg (5,000 unit) capsule coenzyme Q10 300 mg capsule 300 mg PO DAILY 07/21/22 10/28/24 History famotidine-Ca carb-mag hydrox 10 1 tab PO DAILY PRN inde 07/21/22 10/28/24 History mg-800 mg-165 mg chewable tablet (Pepcid Complete) omega-3 fatty acids 1,000 mg 1,000 mg PO DAILY 07/21/22 10/28/24 History capsule amlodipine 5 mg tablet 5 mg PO DAILY #90 tabs 12/14/23 10/28/24 Rx Disabled Parking Permit #1 ea 01/04/24 10/28/24 Rx metoprolol succinate 25 mg 25 mg PO BID #180 tabs 04/11/24 10/28/24 Rx tablet,extended release 24 hr losartan 50 mg tablet 50 mg PO BID #180 tabs 08/23/24 10/28/24 Rx verapamil 120 mg tablet,extended 120 mg PO Q12H 09/04/24 10/28/24 History release torsemide 10 mg tablet 10 mg PO DAILY Shortness Of Breath 09/19/24 10/28/24 Rx #90 tabs empagliflozin 10 mg tablet 10 mg PO DAILY 10/28/24 10/28/24 History (Jardiance) ciprofloxacin HCl 500 mg tablet 500 mg PO BID #10 tabs 12/20/24 Rx Allergies Allergy/AdvReac Type Severity Reaction Status Date / Time No Known Drug Allergies Allergy Verified 10/28/24 18:03 Exam Vital Signs (past 8 hours): - 12/19/24 08:30 12/19/24 08:30 12/19/24 08:55 Pulse Rate 76 84 Respiratory Rate 29 H Blood Pressure 163/74 H 163/74 H Pulse Oximetry 94 12/19/24 09:00 12/19/24 09:01 12/19/24 09:01 Pulse Rate 67 74 Respiratory Rate 31 H 28 H Blood Pressure 130/63 Pulse Oximetry 94 91 12/19/24 09:30 12/19/24 09:30 12/19/24 10:00 Pulse Rate 77 80 Respiratory Rate 26 H 24 Blood Pressure 128/66 Pulse Oximetry 96 96 12/19/24 10:00 12/19/24 10:30 12/19/24 10:31 Pulse Rate 76 78 Respiratory Rate 26 H 26 H Blood Pressure 153/70 H Pulse Oximetry 95 96 12/19/24 10:31 12/19/24 11:00 12/19/24 11:00 Pulse Rate 80 Respiratory Rate 25 H Blood Pressure 129/58 L 138/75 Pulse Oximetry 95 12/19/24 11:30 12/19/24 11:31 12/19/24 11:31 Pulse Rate 86 75 Respiratory Rate 22 Blood Pressure 173/80 H Pulse Oximetry 12/19/24 12:00 12/19/24 12:00 12/19/24 12:30 Pulse Rate 82 77 Respiratory Rate 21 Blood Pressure 167/76 H Pulse Oximetry 95 96 12/19/24 12:30 12/19/24 13:00 12/19/24 13:07 Pulse Rate 85 Respiratory Rate Blood Pressure 177/77 H 169/75 H Pulse Oximetry 91 12/19/24 13:07 12/19/24 13:30 12/19/24 13:31 Pulse Rate 81 80 81 Respiratory Rate 19 22 Blood Pressure Pulse Oximetry 91 94 93 12/19/24 13:31 Pulse Rate Respiratory Rate Blood Pressure 181/74 H Pulse Oximetry Oxygen Delivery Method Room Air Objective Labs 12/19/24 07:29 12/19/24 22:30 Labs: Laboratory Results - last 24 hr 12/19/24 12/19/24 12/19/24 07:29 08:07 09:17 WBC 12.9 H RBC 6.49 H Hgb 19.6 H Hct 57.9 H MCV 89.3 MCH 30.2 MCHC 33.9 RDW 15.8 H Plt Count 279 Neut % (Auto) 91.1 H Lymph % (Auto) 1.7 L Riley % (Auto) 5.1 Eos % (Auto) 1.9 L Baso % (Auto) 0.2 Neut # (Auto) 75884 H Lymph # (Auto) 200 L Riley # (Auto) 700 Eos # (Auto) 200 Baso # (Auto) 0 RBC Morphology See below Polychromasia 2+ H Poikilocytosis 1+ H Anisocytosis 1+ H Microcytosis 1+ H Tear Drop Cells 1+ H Sodium 138 Potassium 6.2 H Chloride 102 Carbon Dioxide 23 BUN 20 Creatinine 1.67 H Estimated GFR 42 L BUN/Creatinine Ratio 12.0 Glucose 155 H Calcium 9.9 Total Bilirubin 1.6 H AST 35 ALT 21 Alkaline Phosphatase 88 Total Creatine Kinase 37 L Total Protein 8.5 H Albumin 4.9 Globulin 3.6 Albumin/Globulin Ratio 1.4 Urine RBC None seen Urine WBC None seen Ur Squamous Epith Cells None seen Urine Bacteria None seen Ur Culture Indicated? Cult not indicated Vol Urine Centrifuged 10ml (spun) Stl C. cayetanensis PCR Not detected Stool Rotavirus (PCR) Not detected Stool Adenovirus (PCR) Not detected Stool Astrovirus (PCR) Not detected Stool Cryptosporidium PCR Not detected Stl E.coli Shiga Tox PCR Not detected St Sh/Enteroin Ecoli PCR Not detected Stl Enterotoxigenic E PCR Not detected Stool EPEC (PCR) Detected Stl E. histolytica PCR Not detected Stool Giardia Lamblia PCR Not detected Stool Sapovirus (PCR) Not detected Stl P. shigelloides PCR Not detected St Y.enterocolitica PCR Not detected Stool Vibrio (PCR) Not detected Stl Vibrio cholerae PCR Not detected Stl Enteroaggr Ecoli PCR Not detected Stl Norovirus GI/GII PCR Detected Campylobacter (PCR) Not detected C. difficile Tox (PCR) Not detected Salmonella (PCR) Not detected Assessment & Plan Time-Based Coding :: [TOTAL MINUTES] spent with patient and on the chart (including review of chart, obtaining history, exam, reviewing outside data, placing orders, documenting exam and treatment plan, and counseling patient) on [DATE].
[2024-12-19 18:22] LABS: Blood Urea Nitrogen 22 mg/dL (9-20); Calcium 8.9 mg/dL (8.4-10.2); Carbon Dioxide 20 mmol/L (22-32); Chloride 109 mmol/L (98-107); Estimated Glomerular Filt Rate 57 mL/min (>60); Glucose 119 mg/dL (70-99); HEMOLYSIS 20 (0-50); Potassium 4.6 mmol/L (3.4-5.1); Sodium 137 mmol/L (137-145)
[2024-12-19] MEDS: SODIUM CHLORIDE 0.9% 500 ML 1000 ML IV (18:44)
[2024-12-19] MEDS: SODIUM CHLORIDE 0.9% 1,000 ML 150 ML IV (18:45)
[2024-12-19] MEDS: CIPROFLOXACIN 400 MG/200 ML PIGGYBACK 200 MG IV (18:45)
[2024-12-19] MEDS: METOPROLOL ER 25 MG TABLET PO (21:12)
[2024-12-19] MEDS: APIXABAN 5 MG TABLET PO (21:12)
[2024-12-19] MEDS: VERAPAMIL 80 MG TABLET PO (21:13)
[2024-12-19 22:52] LABS: Blood Urea Nitrogen 20 mg/dL (9-20); Calcium 8.4 mg/dL (8.4-10.2); Carbon Dioxide 18 mmol/L (22-32); Chloride 107 mmol/L (98-107); Estimated Glomerular Filt Rate 58 mL/min (>60); Glucose 119 mg/dL (70-99); HEMOLYSIS 27 (0-50); Potassium 4.9 mmol/L (3.4-5.1); Sodium 135 mmol/L (137-145)
[2024-12-20 01:51] VITALS: BP 136/70; PULSE 76; TEMP 36.9
[2024-12-20] MEDS: SODIUM CHLORIDE 0.9% 1,000 ML 150 ML IV ×2 (01:56→10:00)
[2024-12-20 04:28] VITALS: BP 107/84; PULSE 68; RESP 16; O2SAT 92
[2024-12-20] MEDS: CIPROFLOXACIN 400 MG/200 ML PIGGYBACK 200 MG IV (05:53)
[2024-12-20 07:46] VITALS: BP 122/56; PULSE 59; RESP 20; O2SAT 90
[2024-12-20 09:58] VITALS: BP 122/59; PULSE 90
[2024-12-20] MEDS: METOPROLOL ER 25 MG TABLET PO (09:58)
[2024-12-20] MEDS: VERAPAMIL 80 MG TABLET PO (09:58)
[2024-12-20] MEDS: APIXABAN 5 MG TABLET PO (09:59)
[2024-12-20 11:00] VITALS: BP 146/73
[2024-12-20 12:00] VITALS: BP 146/73; PULSE 90
--- NOTE | 2024-12-20 14:36 | P.DS_ITS ---
History of Present Illness History of Present Illness Date Patient Seen: 12/20/24 Chief complaint: Diarrhea from norovirus and EPEC Narrative: Chief complaint: Abdominal cramping diarrhea weakness secondary to enteropathogenic E coli and norovirus coinfection with colitis History of present illness: 12/19: 74-year-old male patient with a history of hypertension, CHF, aortic valve replacement/anticoagulation, peripheral arterial disease, morbid obesity, chronic venous insufficiency, pacemaker for third-degree heart block, CVA with left hemiparesis and mantle cell lymphoma who had 1 watery bowel movement last night and then woke up with vomiting this morning and was down on the bathroom floor and could not get up. This has happened to him before because of his left hemiparesis. His called the paramedics and they helped to get him up or were concerned about a low blood pressure. He received 8 mg Zofran and route and is now feeling less nausea. Denies fever, chills or confusion. He has mild abdominal discomfort. He thinks he was on the ground about a 1/2 hour. Findings in the emergency department significant for: GI film panel below: Campylobacter Not Detected Not Detect Clostridium difficile toxin AB Not Detected Not Detect Plesiomonsa shigelloides Not Detected Not Detect Salmonella Not Detected Not Detect Vibrio Not Detected Not Detect Vibrio cholerae Not Detected Not Detect Yersinia enterocolitica Not Detected Not Detect Enteroaggregative E.coli Not Detected Not Detect Enteropathogenic E.coli Detected Not Detect Enterotoxigenic E.coli It/st Not Detected Not Detect Shiga-like toxin-prod E.coli Not Detected Not Detect Shigella/Enteroinvasive E.coli Not Detected Not Detect Cryptosporidium Not Detected Not Detect Cyclospora cayetanensis Not Detected Not Detect Entamoeba histolytica Not Detected Not Detect Giardia lamblia Not Detected Not Detect Adenovirus F 40/41 Not Detected Not Detect Astrovirus Not Detected Not Detect Norovirus GI/GII Detected Not Detect Rotavirus A Not Detected Not Detect Sapovirus Not Detected [place] [address] 91% neutrophils potassium 6.2 do a bilirubin 1.6 Review of systems: No chest pain palpitations Shortness for breath The paresthesia paresis No urinary symptoms Physical exam Well-developed large-framed elderly male in no acute distress but ill-appearing HEENT unremarkable Heart rate and rhythm regular Lungs clear Abdomen nontender nondistended bowel sounds hyperactive Extremities 2+ edema in lower extremities For objective laboratory and imaging data please see bottom of the note Assessment and plan: Diarrhea and colitis with acute kidney injury hyperkalemia with findings of norovirus and enteropathic E coli * Generous IV fluid hydration completed * IV ciprofloxacin due to severity of patient's condition (less severe conditions would normally not be treated) converted to oral * Daily electrolyte and BUN creatinine monitoring * Surveillance for rise in bilirubin for risk of hemolysis (HS) Chronic medical conditions: * S/P TAVR (transcatheter aortic valve replacement) (~04/2018) * History of tonsillectomy * Status post cardiac pacemaker procedure (~05/14/18) DVT prophylaxis: Disposition: Discharge to home Time based billin minutes were involved in the discharge of this patient Discharge Providers Provider Date of admission: 12/19/24 12:39 Discharge Date: 12/20/24 Primary care physician: Danielle Kennedy DO Discharge provider: Jonatan Lynch MD Exam Vital Signs (past 8 hours): - 12/20/24 07:46 12/20/24 09:58 12/20/24 09:58 Pulse Rate 59 L 90 90 Respiratory Rate 20 Blood Pressure 122/56 L 122/59 L 122/59 L Pulse Oximetry 90 L 12/20/24 11:00 12/20/24 12:00 12/20/24 12:00 Pulse Rate 90 90 Respiratory Rate Blood Pressure 146/73 H 146/73 H 146/73 H Pulse Oximetry Oxygen Delivery Method Room Air Oxygen Flow Rate 0 Objective Labs 12/19/24 07:29 12/19/24 22:30 Labs: Laboratory Results - last 24 hr 12/19/24 12/19/24 12/19/24 16:56 17:46 22:30 Sodium 137 135 L Potassium 4.6 D 4.9 Chloride 109 H 107 Carbon Dioxide 20 L 18 L BUN 22 H 20 Creatinine 1.30 H 1.28 H Estimated GFR 57 L 58 L BUN/Creatinine Ratio 16.9 15.6 Glucose 119 H 119 H POC Whole Bld Glucose 143 H Calcium 8.9 8.4 PFSH Medical History (Updated 12/19/24 @ 12:41 by Alan Castelan MD) COVID-19 Pneumonia Lymphedema History of melanoma Community acquired pneumonia Plantar fasciitis (10/02/10) Complete heart block Atrial fibrillation Osteopenia of femoral neck, bilateral (~12/2018) Mantle cell lymphoma (~10/2017) Squamous cell carcinoma (08/2019) CVA (cerebral vascular accident) (~11/2017) Pacemaker (~04/2018) Mild aortic stenosis by prior echocardiogram (08/13/11) Wears glasses Chronic back pain Mumps Measles Chicken pox Kidney stones (~1975) Skin cancer (~2004) TIA (transient ischemic attack) (~2009) Surgical History S/P TAVR (transcatheter aortic valve replacement) (~04/2018) Anesthesia History of tonsillectomy Status post cardiac pacemaker procedure (~05/14/18) S/P bronchoscopy with biopsy Family History Father Lung cancer Mother Parkinson's disease Sister Bladder cancer Social History household members: spouse Smoking Status: Never smoker alcohol intake: never substance use type: does not use Discharge Plan Discharge Plan Patient Disposition: Home Discharge orders & Medications Prescriptions: New ciprofloxacin HCl 500 mg tablet 500 mg PO BID Qty: 10 0RF Continued Jardiance 10 mg tablet 10 mg PO DAILY amlodipine 5 mg tablet 5 mg PO DAILY Qty: 90 3RF (DME) Disabled Parking Permit See Rx Instructions .ROUTE .MEDSUPPLY Qty: 1 0RF Rx Instructions: Valid for 5 years metoprolol succinate 25 mg tablet extended release 24 hr 25 mg PO BID Qty: 180 3RF losartan 50 mg tablet 50 mg PO BID Qty: 180 2RF apixaban 5 mg tablet 5 mg PO BID torsemide 10 mg tablet 10 mg PO DAILY Qty: 90 0RF coenzyme Q10 300 mg capsule 300 mg PO DAILY cholecalciferol (vitamin D3) 125 mcg (5,000 unit) capsule 125 mcg PO DAILY omega-3 fatty acids 1,000 mg capsule 1,000 mg PO DAILY Pepcid Complete 10-800-165 mg tablet,chewable 1 tab PO DAILY PRN (Reason: inde) verapamil 120 mg tablet extended release 120 mg PO Q12H Follow up/Referrals: Danielle Kennedy DO [Primary Care Provider, Medical] Visit Report/Discharge Packet Stand Alone Forms: Patient Portal/API, Stroke Signs & Symptoms Discharge Data Primary Care Provider: Weeks,Danielle Quality VTE Deep Vein Thrombosis/Pulmonary Embolism Present on Admission: No
--- NOTE | 2024-12-20 15:43 | PC.NURSE ---
Discharge instructions given and understood by patient. PIV and Telemetry device removed. Patient discharged with patients by a private vehicle.
== END 2024-12-20 15:35 | disposition home health service (06) | DRG 392 ==
LOC: ED 07:27 → AC 12:41
PROVIDERS: Admitting Provider Internal Medicine; Emergency Provider Emergency Medicine; PCP Family Medicine; Referring Provider Emergency Medicine; Visit Provider Internal Medicine
DX: A08.11 Acute gastroenteropathy due to Norwalk agent (principal); I44.2 Atrioventricular block, complete; I69.354 Hemiplegia and hemiparesis following cerebral infarction affecting left non-dominant side; N17.9 Acute kidney failure, unspecified; E87.5 Hyperkalemia; A04.0 Enteropathogenic Escherichia coli infection; I10 Essential (primary) hypertension; I73.9 Peripheral vascular disease, unspecified; Z79.01 Long term (current) use of anticoagulants; Z95.2 Presence of prosthetic heart valve; Z95.0 Presence of cardiac pacemaker
CPT/HCPCS: 36415; 80048; 80053; 81003; 81015; 82550; 82962; 85025; 87086; 87507; 93005; 96361; 96365; 96375; 99284; J0612; J0744; J0780; J7030; J7040

== ENCOUNTER → 2025-01-16 13:37 | Outpatient (CLI) | payer OTHER, SELFPAY ==
[2024-12-19 18:14] VITALS: BMI 41.5
[2025-01-16 15:54] LABS: Blood Urea Nitrogen 17 mg/dL (9-20); Calcium 9.1 mg/dL (8.4-10.2); Carbon Dioxide 27 mmol/L (22-32); Chloride 103 mmol/L (98-107); Estimated Glomerular Filt Rate > 60 mL/min (>60); Glucose 85 mg/dL (70-99); HEMOLYSIS 15 (0-50); Potassium 4.9 mmol/L (3.4-5.1); Sodium 138 mmol/L (137-145)
== END ==
PROVIDERS: PCP Family Medicine; Referring Provider Nurse Practitioner; Visit Provider Nurse Practitioner
DX: I50.32 Chronic diastolic (congestive) heart failure (principal)
CPT/HCPCS: 36415; 80048

== ENCOUNTER → 2025-02-07 08:34 | Outpatient (CLI) | payer OTHER, SELFPAY ==
[2024-12-19 18:14] VITALS: BMI 41.5
--- NOTE | 2025-02-07 08:35 | DI.US.S_ITS ---
PROCEDURE: US ARTERIAL DUPLEX LE LT INDICATIONS: POPLITEAL ANEURYSM TECHNIQUE: Color and pulse Doppler interrogation was performed of the left lower extremity arterial system, with image documentation. COMPARISON: None. FINDINGS: Left lower extremity: Common femoral artery: 63 cm/sec Deep femoral artery: 95 cm/sec Proximal superficial femoral artery: 41 cm/sec Mid superficial femoral artery: 53 cm/sec Distal superficial femoral artery: 86 cm/sec Popliteal artery: 71 cm/sec Posterior tibial artery: 25 cm/sec Anterior tibial artery/dorsalis pedis: 38 cm/sec Meléndez-scale imaging description: Distal atherosclerotic plaque with monophasic waveforms in the posterior tibial and dorsalis pedis arteries. 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 Atherosclerotic plaque with peripheral vascular disease but no focal stenosis Approved by: Helder Boyce M.D. on 02/08/2025 at 11:41
== END ==
LOC: US 08:35
PROVIDERS: PCP Family Medicine; Referring Provider Family Medicine; Visit Provider Internal Medicine Cardiovascular Disease
DX: I72.4 Aneurysm of artery of lower extremity (principal); C83.9 Non-follicular (diffuse) lymphoma, unspecified; I70.202 Unspecified atherosclerosis of native arteries of extremities, left leg; I50.40 Unspecified combined systolic (congestive) and diastolic (congestive) heart failure
CPT/HCPCS: 93926